=== PATIENT | female | born 1980 | race Caucasian/White ===

== ENCOUNTER 2016-07-06 09:00 | Emergency (ER) | payer MEDICAID ==
[~2016-07-06 09:00] MED LIST: /CARB4TA; /IPRA3SP; /IPRA3SP INH; /IPRAINH INH; /SCOPPA; /SCOPPA TD; ACET50TA GT; ACET650S; ALBU20IN INH; ALESSE; ALESSE GT; ATIV0.5T; ATIV0.5T GT; ATIV0.5T3 GT; ATIV1TAB10 PO; ATRO0.06; ATRO1SOL13 INH; ATROVENT0.02%; ATROVENT0.02% INH; AUGM40SS GT; AVEL1TAB PO; AVIANE GT; AVIATAB; AVIATAB GT; BACT20SS GT; BACT2CRE; BENEPOW7 GT; BENEPOW8; BENEPOW8 GT; BENEPROTEIN; BENEPROTEIN GT; BENETAB GT; BENZ5GEL16 TOP; BISA10SU PR; BISA10SU2; BISA10SU2 RE; BISA10SU30 PR; BLEP10SO; BUTT PASTE TOP; CALC1250 GT; CALC12502; CALC500C2 GT; CALCIFEROL; CALCIUM CARB GT; CALCPOW2; CALCPOW2 GT; CARB GT; CARB10SS; CARB10SS GT; CARMEX LIP BALM; CEFD250SUS PO; CEFT500T; CEFT500T GT; CEFTIN GT; CEFU12SS GT; CETI10TA GT; CILO0.3S OU; CIPR500T4; CLEO300C2 GT; CLIN1CAP5 GT; CLIN1GEL3 TOP; CLIN75CA GT; CLOR7.5T3 GT; CLOT1CRE6 TOP; CLOTCRE3 TOP; CLOTR1CR TOP; CLOTRIMAZOLE ANTI12 EXT; COLA100C GT; COLA100C2 GT; COLA50CA GT; COLACE; COLACE GT; CONS10SO3 GT; CONSTULOSE GT; CYPR4TA GT; CYPR4TAB GT; CYPROHEPTADINE; CYPROHEPTADINE GT; DANT50CA2; DANT50CA2 GT; DEBR6.5S4; DIFL150T GT; DISDOL; DOC Q LACE GT; DOC-Q-LACE GT; DOCU10ELUD GT; DOCU5LIQ GT; DOCUSATE GT; DOCUSATE SODIUM GT; DRISDOL; DUL GT; DULC10SU2 PR; DULCOLAX; DULCOLAX PR; DULCOLAX SUPPOSITORY PR; ENSULIQ GT; ESTR2TAB GT; FLUC10SU GT; FLUC10TA GT; FLUC150T GT; IPRA2IN INH; IPRASOL12 INH; IPRASOL12 NEB; JEVILIQ10 GT; JEVILIQ10 JT; KEPP1000 GT; KEPP1SOL GT; KEPP500T4 GT; KEPPRA; KEPPRA GT; LACOSAMIDE; LACOSAMIDE GT; LACT10SO GT; LACT10SO15 GT; LACT10SO8; LACT10SO8 GT; LACT20EL PEG; LACTSOL16 GT; LEVA0.636 INH; LEVA1.25 INH; LEVA1.256 INH; LEVA12INH INH; LEVA25SO GT; LEVA500T GT; LEVA750T GT; LEVE500UDC GT; LEVO750T GT; LORA0.5T GT; METAMUCIL GT; METAPKT PEG; MINO100C GT; MINO1CAP GT; MIRA255PW GT; MIRA3350 GT; MOTR200T40 PEG; MOTRIN; MOTRIN GT; MUCI100L2 GT; MULTLIQ GT; MULTLIQ7; MULTLIQ7 GT; NASA55AE; NASA55AE INH; NASOCORT; NEOM1SUS22 AD; NUTRPOW11 GT; NYAM10003 TOP; NYST1000 MT; NYST100024 TOP; NYSTATIN POWDER; NYSTATIN TOP; Nasocort INH; OMNICEF GT; PRED10TA PO; PRED10TA2; PRED10TA2 GT; PRED10TA2 PO; PRED20TA; PRED20TA GT; PRED20TAB PEG; PROMLIQ9 GT; RANI150T GT; RECL5INJ2 IV; RECLAST; RECLAST IV IV; ROBISYP GT; ROBITUSSIN; SEPT400T; SEPTRA; SULFATRIM; TEGR100C GT; TEGR100C PO; TEGR200T; TEGR200T GT; TOBR3OI OD; TRAN1.5D2 TOP; TRAN15TA; TRAN15TA GT; TRAN7.5T; TRAN7.5T GT; TRANXENE; TRIAMCINOLONE INH; TRIPOIN TOP; TYLE325T5 GT; TYLE325T5 PEG; TYLE325T5 PO; TYLENOL ELIXIR; VENTAER NEB; VENTOLIN NEB INH; VIBR100C GT; VIMPAT GT; VITADR GT; WATER GT; XARE20TA GT; XOPE0.632 IN; XOPE1.252; XOPE1.252 IN; XOPE1.252 INH; XOPENEX INH; XOPENEX NEB; ZINC OXIDE; ZINC OXIDE TOP; ZINC40OI TOP; ZINC60OI TOP; ZITH500T; ZYRT10CA GT; ZYRT10CA PEG; [UNRECOGNIZED DRUG - CODE]; [UNRECOGNIZED DRUG - CODE]; [UNRECOGNIZED DRUG - CODE] BLADIN; [UNRECOGNIZED DRUG - CODE] GT; [UNRECOGNIZED DRUG - CODE] GT; [UNRECOGNIZED DRUG - CODE] GT; [UNRECOGNIZED DRUG - CODE] GT; [UNRECOGNIZED DRUG - CODE] GT; [UNRECOGNIZED DRUG - CODE] GT; [UNRECOGNIZED DRUG - CODE] GT; [UNRECOGNIZED DRUG - CODE] GT; [UNRECOGNIZED DRUG - CODE] GT; [UNRECOGNIZED DRUG - CODE] INH; [UNRECOGNIZED DRUG - CODE] OS; [UNRECOGNIZED DRUG - CODE] PO; [UNRECOGNIZED DRUG - CODE] PO; [UNRECOGNIZED DRUG - CODE] SC; [UNRECOGNIZED DRUG - CODE] TOP; [UNRECOGNIZED DRUG - CODE] TOP; [UNRECOGNIZED DRUG - MIXTURE]; [UNRECOGNIZED DRUG - OTHER]; [UNRECOGNIZED DRUG - OTHER]; [UNRECOGNIZED DRUG - OTHER]; [UNRECOGNIZED DRUG - OTHER]; [UNRECOGNIZED DRUG - OTHER]; [UNRECOGNIZED DRUG - OTHER]; [UNRECOGNIZED DRUG - OTHER]; [UNRECOGNIZED DRUG - OTHER] GT; [UNRECOGNIZED DRUG - OTHER] GT; [UNRECOGNIZED DRUG - OTHER] GT; [UNRECOGNIZED DRUG - OTHER] GT; [UNRECOGNIZED DRUG - OTHER] GT; [UNRECOGNIZED DRUG - OTHER] GT; [UNRECOGNIZED DRUG - OTHER] GT; [UNRECOGNIZED DRUG - OTHER] PO; atrovent; calciferol; calcium carbonate GT; cephulac GT; cleocin GT; dulcolax suppository PR; mycostatin; mycostatin powder TOP; periactin GT; triamcinolone; vimpat
--- NOTE | 2016-07-06 10:39 | REP ---
Clinical: Pain and swelling with erythema . Technique: Walker scale and color Doppler evaluation using linear high frequency transducer. Findings: Ultrasound examination of the left lower extremity deep venous structures from the common femoral vein to the popliteal vein demonstrates normal compressibility flow and wave patterns in response to respiration and augmentation. There is no evidence for deep venous thrombosis. Impression: No evidence for deep venous thrombosis. Signed by Mac Montes MD 07/06/2016 10:31 A
[2016-07-06 11:37] LABS: BASO % 0.7 % (0.0-1.0); EOS # 0.3 K/mm3 (0.0-0.50); EOS % 4.1 % (0.0-3.0); LARGE UNSTAINED CELL # 0.4 K/mm3 (0.0-0.4); LARGE UNSTAINED CELL % 5.5 % (0.0-4.0); LYMPH # 1.8 K/mm3 (1.5-4.5); LYMPH % 18.8 % (24.0-44.0); MEAN CORPUSCULAR HGB CONC 32.7 g/dl (32.0-36.5); MEAN CORPUSCULAR VOLUME 100.9 fl (80.0-96.0); MONO # 0.8 K/mm3 (0.0-0.8); MONO % 11.3 % (0.0-5.0); NEUTROPHILS # 4.3 K/mm3 (1.8-7.7); NEUTROPHILS % 59.6 % (36.0-66.0); PLATELET COUNT, AUTOMATED 170 k/mm3 (150-450); RED CELL DISTRIBUTION WIDTH 18.3 % (11.5-14.5); WHITE BLOOD COUNT 7.2 K/mm3 (4.0-10.0)
[2016-07-06 11:56] LABS: ANION GAP 8 MEQ/L (8-16); BLOOD UREA NITROGEN 13 MG/DL (7-18); CALCIUM LEVEL 8.6 MG/DL (8.5-10.1); CARBON DIOXIDE LEVEL 27 MEQ/L (21-32); CHLORIDE LEVEL 106 MEQ/L (98-107); CREATININE FOR GFR 0.26 MG/DL (0.55-1.02); GLOMERULAR FILTRATION RATE > 60.0 (>60); GLUCOSE, FASTING 107 MG/DL (70-105); SODIUM LEVEL 141 MEQ/L (136-145)
[2016-07-06] MEDS ORDERED: DOXYCYCLINE HYCLATE 100 MG TAB As Ordered ONE (13:12)
--- NOTE | 2016-07-06 13:59 | EDDOCDS ---
Nurse's Notes [facility] Name: Klaudia Echeverria Age: 35 yrs Sex: Female : 1980 Arrival Date: 07/06/2016 Time: 09:00 Bed 18 Private MD: Diagnosis: Cellulitis of left lower limb Presentation: 07/06 09:13 Presenting complaint: per [facility] staff - just d/c from hospital yesterday - today staff bcj noticed swollen left leg/ red in lower leg. denies injury. has not voided in last 24 hrs. ? temp at residence. Adult Sepsis Screening: The patient does not have new or worsening altered mentation. Patient's respiratory rate is less than 22. Systolic blood pressure is greater than 100. Patient has a qSOFA score of 0- Negative Sepsis Screen. Suicide/Homicide risk assessment- the patient denies having any suicidal and/or homicidal ideations and does not present with any other emotional, behavioral or mental health complaints. Status: Patient is not a customer service sales consultant or dependent. Transition of care: patient was not received from another setting of care. 09:13 Acuity: MILES Level 3 bcj 09:13 Method Of Arrival: Ambulance bcj Triage Assessment: 09:25 General: Appears in no apparent distress, comfortable, Behavior is cooperative. Pain: bcj Location: left leg Pain currently is 5 out of 10 on a pain scale. 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 CLINIC DIRECTOR: 09:25 LMP N/A - Irregular menses bcj Historical: - Allergies: ACTH; Augmentin; Biaxin; Lamictal; - Home Meds: 1. clindamycin phosphate 1 % Topical gel QHS to face, underarms, behind ears 2. Atrovent 0.02 % Inhl soln QID and q2 PRN 3. Colace 60mg/5ml oral 15 mL as needed also prn, via G tube 4. cyproheptadine 8 mg Oral tab 2 tabs 3 times per day G-tube 5. Dantrium 50 mg Oral cap 1 cap 3 times per day G-tube 6. Dulcolax (bisacodyl) 10 mg Rectal supp 1 suppository After No BM for 5 days 7. fluconazole 150 mg Oral tab every 7 days 8. Keppra 100 mg/mL Oral soln 500 mg Qam G-tube 9. Keppra 100 mg/mL Oral soln 750 mg nightly G-tube 10. minocycline 100 mg Oral cap 1 cap daily G-tube 11. Miralax 17 gram/dose Oral crea once daily G-tube 12. mucinex-chest congestion 10ml Q4 PRN G tube 13. multivitamin Oral liqd daily 14. nystatin 100,000 unit/gram Topical powd 100,000 unit/g BID PRN 15. poly-vi-santi daily 16. ranitidine HCl 150 mg Oral tab 1 tab 2 times per day give by mouth 17. scopolamine base 1.5 mg transdermal pt72 1 patch every 3 days behind right ear 18. Tranxene T-Tab 7.5 mg Oral tab 1 tab 2 times per day G-tube 19. Vimpat 50 mg AM 75 mg HS oral soln daily G-tube 20. Xarelto 20 mg oral tab 1 tab once daily G-tube 21. Xopenex 1.25 mg/3 mL Inhl nebu 3 mL QID and q2 PRN 22. Zaditor 0.025 % (0.035 %) ophthalmic drop as needed - PMHx: anoxic brain injury; aspiration pneumonia; Asthma; BLINDNESS; Epilepsy; hypothermia; Osteoporosis; - PSHx: none; - Social history: Smoking status: Patient states was never smoker of tobacco. Patient is speech impaired. - Family history: Not pertinent. - : The pt / caregiver states he / she is on anticoagulants: Xarelto Home medication list is obtained from the facility MAR. - Exposure Risk Screening:: None identified. Screenin:01 Infection Control. deg 09:26 Screening information is obtained from residence staff. Fall risk: At risk due to bcj immobility, The following interventions are performed due to a positive Fall Risk Screen: Fall Risk is added to Special Handling on the patient Summary Screen. A Fall Risk Bracelet was applied to the patient. Side Rails are placed in the up position. A Call Chavez is given with instruction to call for help when getting out of bed. Fall Alert bracelet is placed on the patient. Assistance ADL's: Requires assistance with medication administration, assistance is provided by residence staff. Abuse/DV Screen: The patient / caregiver reports he/she is: not in a situation that causes fear, pain or injury. Nutritional screening: On. Advance Directives: There is an active DNR order and the pt has a copy here at this time. home support is adequate. Assessment: 09:26 General: Appears in no apparent distress, comfortable, Behavior is cooperative. bcj 11:48 General: Appears in no apparent distress. Pain: Location: left leg Pain currently is 3 bcj out of 10 on a pain scale. Derm: Skin is pale, pink. Musculoskeletal: Swelling present in left leg redness warm to touch. 12:47 General: Appears in no apparent distress, comfortable, Behavior is cooperative. Pain: bcj Denies pain. 13:55 General: Appears in no apparent distress, comfortable, Behavior is cooperative. Pain: bcj Denies pain. Derm: Skin is pink, warm & dry. Vital Signs: 09:14 BP 133 / 92; Pulse 85; Resp 22; Temp 97.1(R); Pulse Ox 99% on R/A; Weight 61.69 kg (R); jb5 Height 4 ft. 9 in. (144.78 cm) (R); 09:14 Body Mass Index 29.43 (61.69 kg, 144.78 cm) jb5 09:14 unable to tell PAin but makes a face when left leg moved jb5 Vitals: 09:25 Log In Time N/A - ambulance arrival. [facility] ED Course: 09:01 Patient visited by Raven Adams, Park Landscape Architect. deg 09:01 Patient moved to Waiting deg 09:01 Patient moved to 18 deg 09:16 Patient visited by Jessie Smart PCA. jb5 09:20 Mary Sim MD is Attending Physician. sd1 09:21 Triage Initiated bcj 09:26 No apparent distress. Resting quietly. Awaiting ED physician evaluation. bcj 09:26 The patient / caregiver is instructed regarding the plan of care and ED course. bcj Accompanied by [facility] staff. 09:29 Patient visited by Reid Sims RN. bcj 09:35 Patient visited by Mary Sim MD. sd1 09:44 Patient visited by Reid Sims RN. bcj 10:09 Patient moved to Ultrasound hgl 10:25 Patient moved to 18 hgl 11:00 US Lower Extremity R/O DVT Returned. EDMS 11:06 [facility] Payment Agreement was scanned into [employer] and attached to record. mm15 11:14 Patient visited by Jessie Smart PCA. jb5 11:28 CBC with Diff Sent. bcj 11:28 Lactic Acid (Walker tube on ice) Sent. bcj 11:28 MED Profile Sent. bcj 11:28 -Blood Culture Sent. bcj 11:28 BLOOD CULTURES Sent. bcj 11:29 Inserted saline lock: 22 gauge in right upper arm. Labs drawn. (by ED staff). Sent per [facility] order to lab. Labs/Blood culture drawn. 11:30 Patient visited by Reid Sims RN. bcj 11:48 No apparent distress. Resting quietly. Awaiting disposition. bcj 11:48 IV is intact. bcj 11:55 Patient visited by Reid Sims RN. bcj 12:47 No apparent distress. Resting quietly. Awaiting disposition. bcj 12:47 IV is intact. bcj 12:49 Patient visited by Reid Sims RN. bcj 12:50 Efrain Lara MD is Referral Physician. sd1 13:55 No apparent distress. Resting quietly. Awaiting disposition. bcj 13:55 Discontinued lock intact. No procedures done that require assistance. bcj 13:59 Patient visited by Reid Sims RN. j Order Results: Lab Order: CBC with Diff; SPEC'M 07/06/16 11:25 Test: WHITE BLOOD COUNT; Value: 7.2; Range: 4.0-10.0; Units: K/mm3; Status: F Test: RED BLOOD COUNT; Value: 3.53; Range: 4.00-5.40; Abnormal: Below low normal; Units: M/mm3; Status: F Test: HEMOGLOBIN; Value: 11.6; Range: 12.0-16.0; Abnormal: Below low normal; Units: g/dl; Status: F Test: HEMATOCRIT; Value: 35.7; Range: 36.0-47.0; Abnormal: Below low normal; Units: %; Status: F Test: MEAN CORPUSCULAR VOLUME; Value: 100.9; Range: 80.0-96.0; Abnormal: Above high normal; Units: fl; Status: F Test: MEAN CORPUSCULAR HEMOGLOBIN; Value: 33.0; Range: 27.0-33.0; Units: pg; Status: F Test: MEAN CORPUSCULAR HGB CONC; Value: 32.7; Range: 32.0-36.5; Units: g/dl; Status: F Test: RED CELL DISTRIBUTION WIDTH; Value: 18.3; Range: 11.5-14.5; Abnormal: Above high normal; Units: %; Status: F Test: PLATELET COUNT, AUTOMATED; Value: 170; Range: 150-450; Units: k/mm3; Status: F Test: NEUTROPHILS %; Value: 59.6; Range: 36.0-66.0; Units: %; Status: F Test: LYMPH %; Value: 18.8; Range: 24.0-44.0; Abnormal: Below low normal; Units: %; Status: F Test: MONO %; Value: 11.3; Range: 0.0-5.0; Abnormal: Above high normal; Units: %; Status: F Test: EOS %; Value: 4.1; Range: 0.0-3.0; Abnormal: Above high normal; Units: %; Status: F Test: BASO %; Value: 0.7; Range: 0.0-1.0; Units: %; Status: F Test: LARGE UNSTAINED CELL %; Value: 5.5; Range: 0.0-4.0; Abnormal: Above high normal; Units: %; Status: F Test: NEUTROPHILS #; Value: 4.3; Range: 1.8-7.7; Units: K/mm3; Status: F Test: LYMPH #; Value: 1.8; Range: 1.5-4.5; Units: K/mm3; Status: F Test: MONO #; Value: 0.8; Range: 0.0-0.8; Units: K/mm3; Status: F Test: EOS #; Value: 0.3; Range: 0.0-0.50; Units: K/mm3; Status: F Test: BASO #; Value: 0.0; Range: 0.0-0.2; Units: K/mm3; Status: F Test: LARGE UNSTAINED CELL #; Value: 0.4; Range: 0.0-0.4; Units: K/mm3; Status: F Lab Order: Lactic Acid (Walker tube on ice); SPEC'M 07/06/16 11:25 Test: LACTIC ACID LEVEL, LACTATE; Value: 0.6; Range: 0.4-2.0; Units: MMOL/L; Status: F Lab Order: DOMINIC CORDERO 07/06/16 11:25 Test: GLUCOSE, FASTING; Value: 107; Range: 70-105; Abnormal: Above high normal; Units: MG/DL; Status: F Test: BLOOD UREA NITROGEN; Value: 13; Range: 7-18; Units: MG/DL; Status: F Test: CREATININE FOR GFR; Value: 0.26; Range: 0.55-1.02; Abnormal: Below low normal; Units: MG/DL; Status: F Test: GLOMERULAR FILTRATION RATE; Value: > 60.0; Range: >60; Status: F Test: SODIUM LEVEL; Value: 141; Range: 136-145; Units: MEQ/L; Status: F Test: POTASSIUM SERUM; Value: 4.0; Range: 3.5-5.1; Units: MEQ/L; Status: F Test: CHLORIDE LEVEL; Value: 106; Range: 98-107; Units: MEQ/L; Status: F Test: CARBON DIOXIDE LEVEL; Value: 27; Range: 21-32; Units: MEQ/L; Status: F Test: ANION GAP; Value: 8; Range: 8-16; Units: MEQ/L; Status: F Test: CALCIUM LEVEL; Value: 8.6; Range: 8.5-10.1; Units: MG/DL; Status: F Test Note: ; Units are mL/min/1.73 m2 Chronic Kidney Disease Staging per NKF: Stage I & II GFR >=60 Normal to Mildly Decreased Stage III GFR 30-59 Moderately Decreased Stage IV GFR 15-29 Severely Decreased Stage V GFR <15 Very Little GFR Left ESRD GFR <15 on DEAN OF INSTRUCTION Radiology Order: US Lower Extremity R/O DVT Test: US Lower Extremity R/O DVT REASON FOR EXAMINATION: swelling/redness; Clinical: Pain and swelling with erythema .; ; Technique: Walker scale and color Doppler evaluation using linear high frequency; transducer.; ; Findings:; Ultrasound examination of the left lower extremity deep venous structures from; the common femoral vein to the popliteal vein demonstrates normal compressibility; flow and wave patterns in response to respiration and augmentation. There is no; evidence for deep venous thrombosis.; ; Impression:; No evidence for deep venous thrombosis.; ; ; Signed by; Mac Montes MD 07/06/2016 10:31 A; Outcome: 12:50 Discharge ordered by Provider. sd1 13:55 Discharge Assessment: patient administered narcotics - no. The following High Risk j Discharge criteria are identified: None. Discharged to home ambulatory. Condition: stable. Discharge instructions given to parents Instructed on discharge instructions, follow up and referral plans. medication usage. Ultrasound Study completed. Property :Personal belongings accompany Pt. 13:59 Patient left the ED. [facility] Signatures: Dispatcher [employer] EDIL Mary Sim MD MD sd1 Raven Adams, Park Landscape Architect Unit deg Reid Sims, RN RN bcJessie Badillo, HOME HEALTH CNA HOME HEALTH CNA jb5 Ly, Benedicto Can mm15 MTDAditi
--- NOTE | 2016-07-06 13:59 | EDDOCDS ---
Physician Documentation [facility] Name: Klaudia Echeverria Age: 35 yrs Sex: Female : 1980 Arrival Date: 07/06/2016 Time: 09:00 Bed 18 Private MD: Disposition: 07/06/16 12:50 Discharged to Home/Self Care. Impression: Cellulitis of left lower limb. - Condition is Stable. - Discharge Instructions: Cellulitis, Cellulitis, [id number]. - Medication Reconciliation, Local Pharmacy Hours form. - Follow up: Efrain Lara MD; When: 2 - 3 days; Reason: Recheck today's complaints. - Problem is new. - Symptoms are unchanged. Historical: - Allergies: ACTH; Augmentin; Biaxin; Lamictal; - Home Meds: 1. clindamycin phosphate 1 % Topical gel QHS to face, underarms, behind ears 2. Atrovent 0.02 % Inhl soln QID and q2 PRN 3. Colace 60mg/5ml oral 15 mL as needed also prn, via G tube 4. cyproheptadine 8 mg Oral tab 2 tabs 3 times per day G-tube 5. Dantrium 50 mg Oral cap 1 cap 3 times per day G-tube 6. Dulcolax (bisacodyl) 10 mg Rectal supp 1 suppository After No BM for 5 days 7. fluconazole 150 mg Oral tab every 7 days 8. Keppra 100 mg/mL Oral soln 500 mg Qam G-tube 9. Keppra 100 mg/mL Oral soln 750 mg nightly G-tube 10. minocycline 100 mg Oral cap 1 cap daily G-tube 11. Miralax 17 gram/dose Oral crea once daily G-tube 12. mucinex-chest congestion 10ml Q4 PRN G tube 13. multivitamin Oral liqd daily 14. nystatin 100,000 unit/gram Topical powd 100,000 unit/g BID PRN 15. poly-vi-santi daily 16. ranitidine HCl 150 mg Oral tab 1 tab 2 times per day give by mouth 17. scopolamine base 1.5 mg transdermal pt72 1 patch every 3 days behind right ear 18. Tranxene T-Tab 7.5 mg Oral tab 1 tab 2 times per day G-tube 19. Vimpat 50 mg AM 75 mg HS oral soln daily G-tube 20. Xarelto 20 mg oral tab 1 tab once daily G-tube 21. Xopenex 1.25 mg/3 mL Inhl nebu 3 mL QID and q2 PRN 22. Zaditor 0.025 % (0.035 %) ophthalmic drop as needed - PMHx: anoxic brain injury; aspiration pneumonia; Asthma; BLINDNESS; Epilepsy; hypothermia; Osteoporosis; - PSHx: none; - Social history: Smoking status: Patient states was never smoker of tobacco. Patient is speech impaired. - Family history: Not pertinent. - : The pt / caregiver states he / she is on anticoagulants: Xarelto Home medication list is obtained from the facility MAR. - Exposure Risk Screening:: None identified. THREE KNIFE TRIMMER: 07/06 09:25 LMP N/A - Irregular menses [facility] Vital Signs: 09:14 BP 133 / 92; Pulse 85; Resp 22; Temp 97.1(R); Pulse Ox 99% on R/A; Weight 61.69 kg / jb5 136 lbs (R); Height 4 ft. 9 in. (144.78 cm) (R); 09:14 Body Mass Index 29.43 (61.69 kg, 144.78 cm) jb5 09:14 unable to tell PAin but makes a face when left leg moved jb5 MDM: 09:36 Financial registration complete. mm15 09:44 IV Saline Lock ordered. sd1 09:44 -Blood Culture (Adults Only), peripheral from different site, or from device/port/PICC sd1 etc. if present ordered. 09:45 US Lower Extremity R/O DVT Ordered. EDMS 09:45 CBC with Diff Ordered. EDMS 09:45 Lactic Acid (Walker tube on ice) Ordered. EDMS 09:45 MED Profile Ordered. EDMS 09:45 -Blood Culture Ordered. EDMS 09:59 -Blood Culture (Adults Only), peripheral from different site, or from device/port/PICC jb5 etc. if present complete. 10:01 BLOOD CULTURES Ordered. EDMS 11:06 [facility] Payment Agreement was scanned into [employer] and attached to record. mm15 12:45 CBC with Diff Reviewed. sd1 12:45 MED Profile Reviewed. sd1 12:45 Lactic Acid (Walker tube on ice) Reviewed. sd1 12:45 US Lower Extremity R/O DVT Reviewed. sd1 12:49 Doxycycline 100 mg PO once ordered. sd1 Signatures: Dispatcher [employer] Mary Perla MD MD sd1 Reid Sims, JEN RN Jessie Reyes, NICOLAS COAL TOWER OPERATOR jb5 Benedicto Dalton mm15 The chart was reviewed and I authenticate all verbal orders and agree with the evaluation and treatment provided.Attachments: 11:06 [facility] Payment Agreement mm15 MTDD
--- NOTE | 2016-07-08 14:59 | EDDOCDS ---
Nurse's Notes [facility] Name: Klaudia Echeverria Age: 35 yrs Sex: Female : 1980 Arrival Date: 07/06/2016 Time: 09:00 Bed 18 Private MD: Diagnosis: Cellulitis of left lower limb Presentation: 07/06 09:13 Presenting complaint: per [facility] staff - just d/c from hospital yesterday - today staff bcj noticed swollen left leg/ red in lower leg. denies injury. has not voided in last 24 hrs. ? temp at residence. Adult Sepsis Screening: The patient does not have new or worsening altered mentation. Patient's respiratory rate is less than 22. Systolic blood pressure is greater than 100. Patient has a qSOFA score of 0- Negative Sepsis Screen. Suicide/Homicide risk assessment- the patient denies having any suicidal and/or homicidal ideations and does not present with any other emotional, behavioral or mental health complaints. Status: Patient is not a cash register servicer or dependent. Transition of care: patient was not received from another setting of care. 09:13 Acuity: MILES Level 3 bcj 09:13 Method Of Arrival: Ambulance bcj Triage Assessment: 09:25 General: Appears in no apparent distress, comfortable, Behavior is cooperative. Pain: bcj Location: left leg Pain currently is 5 out of 10 on a pain scale. 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 clindamycin phosphate 1 % Topical gel QHS to face, underarms, behind ears 2. Atrovent 0.02 % Inhl soln QID and q2 PRN 3. Colace 60mg/5ml oral 15 mL as needed also prn, via G tube 4. cyproheptadine 8 mg Oral tab 2 tabs 3 times per day G-tube 5. Dantrium 50 mg Oral cap 1 cap 3 times per day G-tube 6. Dulcolax (bisacodyl) 10 mg Rectal supp 1 suppository After No BM for 5 days 7. fluconazole 150 mg Oral tab every 7 days 8. Keppra 100 mg/mL Oral soln 500 mg Qam G-tube 9. Keppra 100 mg/mL Oral soln 750 mg nightly G-tube 10. minocycline 100 mg Oral cap 1 cap daily G-tube 11. Miralax 17 gram/dose Oral crea once daily G-tube 12. mucinex-chest congestion 10ml Q4 PRN G tube 13. multivitamin Oral liqd daily 14. nystatin 100,000 unit/gram Topical powd 100,000 unit/g BID PRN 15. poly-vi-santi daily 16. ranitidine HCl 150 mg Oral tab 1 tab 2 times per day give by mouth 17. scopolamine base 1.5 mg transdermal pt72 1 patch every 3 days behind right ear 18. Tranxene T-Tab 7.5 mg Oral tab 1 tab 2 times per day G-tube 19. Vimpat 50 mg AM 75 mg HS oral soln daily G-tube 20. Xarelto 20 mg oral tab 1 tab once daily G-tube 21. Xopenex 1.25 mg/3 mL Inhl nebu 3 mL QID and q2 PRN 22. Zaditor 0.025 % (0.035 %) ophthalmic drop as needed - PMHx: anoxic brain injury; aspiration pneumonia; Asthma; BLINDNESS; Epilepsy; hypothermia; Osteoporosis; - PSHx: none; - Social history: Smoking status: Patient states was never smoker of tobacco. Patient is speech impaired. - Family history: Not pertinent. - : The pt / caregiver states he / she is on anticoagulants: Xarelto Home medication list is obtained from the facility MAR. - Exposure Risk Screening:: None identified. Screenin:01 Infection Control. deg 09:26 Screening information is obtained from residence staff. Fall risk: At risk due to bcj immobility, The following interventions are performed due to a positive Fall Risk Screen: Fall Risk is added to Special Handling on the patient Summary Screen. A Fall Risk Bracelet was applied to the patient. Side Rails are placed in the up position. A Call Chavez is given with instruction to call for help when getting out of bed. Fall Alert bracelet is placed on the patient. Assistance ADL's: Requires assistance with medication administration, assistance is provided by residence staff. Abuse/DV Screen: The patient / caregiver reports he/she is: not in a situation that causes fear, pain or injury. Nutritional screening: On. Advance Directives: There is an active DNR order and the pt has a copy here at this time. home support is adequate. Assessment: 09:26 General: Appears in no apparent distress, comfortable, Behavior is cooperative. bcj 11:48 General: Appears in no apparent distress. Pain: Location: left leg Pain currently is 3 bcj out of 10 on a pain scale. Derm: Skin is pale, pink. Musculoskeletal: Swelling present in left leg redness warm to touch. 12:47 General: Appears in no apparent distress, comfortable, Behavior is cooperative. Pain: bcj Denies pain. 13:55 General: Appears in no apparent distress, comfortable, Behavior is cooperative. Pain: bcj Denies pain. Derm: Skin is pink, warm & dry. Vital Signs: 09:14 BP 133 / 92; Pulse 85; Resp 22; Temp 97.1(R); Pulse Ox 99% on R/A; Weight 61.69 kg (R); jb5 Height 4 ft. 9 in. (144.78 cm) (R); 09:14 Body Mass Index 29.43 (61.69 kg, 144.78 cm) jb5 09:14 unable to tell PAin but makes a face when left leg moved jb5 Vitals: 09:25 Log In Time N/A - ambulance arrival. [facility] ED Course: 09:01 Patient visited by Raven Adams, Skin Care Therapist. deg 09:01 Patient moved to Waiting deg 09:01 Patient moved to 18 deg 09:16 Patient visited by Jessie Smart PCA. jb5 09:20 Mary Sim MD is Attending Physician. sd1 09:21 Triage Initiated bcj 09:26 No apparent distress. Resting quietly. Awaiting ED physician evaluation. bcj 09:26 The patient / caregiver is instructed regarding the plan of care and ED course. bcj Accompanied by [facility] staff. 09:29 Patient visited by Reid Sims RN. bcj 09:35 Patient visited by Mary Sim MD. sd1 09:44 Patient visited by Reid Sims RN. bcj 10:09 Patient moved to Ultrasound hgl 10:25 Patient moved to 18 hgl 11:00 US Lower Extremity R/O DVT Returned. EDMS 11:06 [facility] Payment Agreement was scanned into ZALP and attached to record. mm15 11:14 Patient visited by Jessie Smart PCA. jb5 11:28 CBC with Diff Sent. bcj 11:28 Lactic Acid (Walker tube on ice) Sent. bcj 11:28 MED Profile Sent. bcj 11:28 -Blood Culture Sent. bcj 11:28 BLOOD CULTURES Sent. bcj 11:29 Inserted saline lock: 22 gauge in right upper arm. Labs drawn. (by ED staff). Sent per [facility] order to lab. Labs/Blood culture drawn. 11:30 Patient visited by Reid Sims RN. bcj 11:48 No apparent distress. Resting quietly. Awaiting disposition. bcj 11:48 IV is intact. bcj 11:55 Patient visited by Reid Sims RN. bcj 12:47 No apparent distress. Resting quietly. Awaiting disposition. bcj 12:47 IV is intact. bcj 12:49 Patient visited by Reid Sims RN. bcj 12:50 Efrain Lara MD is Referral Physician. sd1 13:55 No apparent distress. Resting quietly. Awaiting disposition. bcj 13:55 Discontinued lock intact. No procedures done that require assistance. bcj 13:59 Patient visited by Reid Sims RN. [facility] 07/07 06:55 T-Sheet-- Draft Copy was scanned into ZALP and attached to record. hs2 Order Results: Lab Order: CBC with Diff; SPEC'M 07/06/16 11:25 Test: WHITE BLOOD COUNT; Value: 7.2; Range: 4.0-10.0; Units: K/mm3; Status: F Test: RED BLOOD COUNT; Value: 3.53; Range: 4.00-5.40; Abnormal: Below low normal; Units: M/mm3; Status: F Test: HEMOGLOBIN; Value: 11.6; Range: 12.0-16.0; Abnormal: Below low normal; Units: g/dl; Status: F Test: HEMATOCRIT; Value: 35.7; Range: 36.0-47.0; Abnormal: Below low normal; Units: %; Status: F Test: MEAN CORPUSCULAR VOLUME; Value: 100.9; Range: 80.0-96.0; Abnormal: Above high normal; Units: fl; Status: F Test: MEAN CORPUSCULAR HEMOGLOBIN; Value: 33.0; Range: 27.0-33.0; Units: pg; Status: F Test: MEAN CORPUSCULAR HGB CONC; Value: 32.7; Range: 32.0-36.5; Units: g/dl; Status: F Test: RED CELL DISTRIBUTION WIDTH; Value: 18.3; Range: 11.5-14.5; Abnormal: Above high normal; Units: %; Status: F Test: PLATELET COUNT, AUTOMATED; Value: 170; Range: 150-450; Units: k/mm3; Status: F Test: NEUTROPHILS %; Value: 59.6; Range: 36.0-66.0; Units: %; Status: F Test: LYMPH %; Value: 18.8; Range: 24.0-44.0; Abnormal: Below low normal; Units: %; Status: F Test: MONO %; Value: 11.3; Range: 0.0-5.0; Abnormal: Above high normal; Units: %; Status: F Test: EOS %; Value: 4.1; Range: 0.0-3.0; Abnormal: Above high normal; Units: %; Status: F Test: BASO %; Value: 0.7; Range: 0.0-1.0; Units: %; Status: F Test: LARGE UNSTAINED CELL %; Value: 5.5; Range: 0.0-4.0; Abnormal: Above high normal; Units: %; Status: F Test: NEUTROPHILS #; Value: 4.3; Range: 1.8-7.7; Units: K/mm3; Status: F Test: LYMPH #; Value: 1.8; Range: 1.5-4.5; Units: K/mm3; Status: F Test: MONO #; Value: 0.8; Range: 0.0-0.8; Units: K/mm3; Status: F Test: EOS #; Value: 0.3; Range: 0.0-0.50; Units: K/mm3; Status: F Test: BASO #; Value: 0.0; Range: 0.0-0.2; Units: K/mm3; Status: F Test: LARGE UNSTAINED CELL #; Value: 0.4; Range: 0.0-0.4; Units: K/mm3; Status: F Lab Order: Lactic Acid (Walker tube on ice); SPEC'M 07/06/16 11:25 Test: LACTIC ACID LEVEL, LACTATE; Value: 0.6; Range: 0.4-2.0; Units: MMOL/L; Status: F Lab Order: MED Profile; SPEC'M 07/06/16 11:25 Test: GLUCOSE, FASTING; Value: 107; Range: 70-105; Abnormal: Above high normal; Units: MG/DL; Status: F Test: BLOOD UREA NITROGEN; Value: 13; Range: 7-18; Units: MG/DL; Status: F Test: CREATININE FOR GFR; Value: 0.26; Range: 0.55-1.02; Abnormal: Below low normal; Units: MG/DL; Status: F Test: GLOMERULAR FILTRATION RATE; Value: > 60.0; Range: >60; Status: F Test: SODIUM LEVEL; Value: 141; Range: 136-145; Units: MEQ/L; Status: F Test: POTASSIUM SERUM; Value: 4.0; Range: 3.5-5.1; Units: MEQ/L; Status: F Test: CHLORIDE LEVEL; Value: 106; Range: 98-107; Units: MEQ/L; Status: F Test: CARBON DIOXIDE LEVEL; Value: 27; Range: 21-32; Units: MEQ/L; Status: F Test: ANION GAP; Value: 8; Range: 8-16; Units: MEQ/L; Status: F Test: CALCIUM LEVEL; Value: 8.6; Range: 8.5-10.1; Units: MG/DL; Status: F Test Note: ; Units are mL/min/1.73 m2 Chronic Kidney Disease Staging per NKF: Stage I & II GFR >=60 Normal to Mildly Decreased Stage III GFR 30-59 Moderately Decreased Stage IV GFR 15-29 Severely Decreased Stage V GFR <15 Very Little GFR Left ESRD GFR <15 on ALL AROUND PRESSER Lab Order: -Blood Culture; SPEC'M 07/06/16 11:25 Test: BLOOD CULTURE; Value: No growth after 24 hours . All specimens observed; Status: F Test: BLOOD CULTURE; Value: for 5 days. Results final at that time.; Status: F Test: BLOOD CULTURE; Value: No Growth after 48 hours. All Specimens observed; Status: F Test: BLOOD CULTURE; Value: for 7 days. Results final at that time.; Status: F Lab Order: BLOOD CULTURES; SPEC'M 07/06/16 11:27 Test: BLOOD CULTURE; Value: No growth after 24 hours . All specimens observed; Status: F Test: BLOOD CULTURE; Value: for 5 days. Results final at that time.; Status: F Test: BLOOD CULTURE; Value: No Growth after 48 hours. All Specimens observed; Status: F Test: BLOOD CULTURE; Value: for 7 days. Results final at that time.; Status: F Radiology Order: US Lower Extremity R/O DVT Test: US Lower Extremity R/O DVT REASON FOR EXAMINATION: swelling/redness; Clinical: Pain and swelling with erythema .; ; Technique: Walker scale and color Doppler evaluation using linear high frequency; transducer.; ; Findings:; Ultrasound examination of the left lower extremity deep venous structures from; the common femoral vein to the popliteal vein demonstrates normal compressibility; flow and wave patterns in response to respiration and augmentation. There is no; evidence for deep venous thrombosis.; ; Impression:; No evidence for deep venous thrombosis.; ; ; Signed by; Mac Montes MD 07/06/2016 10:31 A; Outcome: 07/06 12:50 Discharge ordered by Provider. sd1 13:55 Discharge Assessment: patient administered narcotics - no. The following High Risk [facility] Discharge criteria are identified: None. Discharged to home ambulatory. Condition: stable. Discharge instructions given to parents Instructed on discharge instructions, follow up and referral plans. medication usage. Ultrasound Study completed. Property :Personal belongings accompany Pt. 13:59 Patient left the ED. [facility] Signatures: Dispatcher [employer] Mary Perla MD MD sd1 Raven Adams, Skin Care Therapist Unit Reid Paz, JEN RN Jessie Reyes, NICOLAS TOOTH CUTTER CLUTCH jb5 Dereck Obando Marlynn mm15 Manjula Duarte, Reg Reg hs2 Chart Complete MTDD
--- NOTE | 2016-07-08 14:59 | EDDOCDS ---
Physician Documentation [facility] Name: Klaudia Echeverria Age: 35 yrs Sex: Female : 1980 Arrival Date: 07/06/2016 Time: 09:00 Bed 18 Private MD: Disposition: 07/06/16 12:50 Discharged to Home/Self Care. Impression: Cellulitis of left lower limb. - Condition is Stable. - Discharge Instructions: Cellulitis, Cellulitis, [id number]. - Prescriptions for Doxycycline Monohydrate 100 mg Oral Tablet - take 1 tablet by ORAL route every 12 hours for 10 days; 20 tablet. - Medication Reconciliation, Local Pharmacy Hours form. - Follow up: Efrani Lara MD; When: 2 - 3 days; Reason: Recheck today's complaints. - Problem is new. - Symptoms are unchanged. Historical: - Allergies: ACTH; Augmentin; Biaxin; Lamictal; - Home Meds: 1. clindamycin phosphate 1 % Topical gel QHS to face, underarms, behind ears 2. Atrovent 0.02 % Inhl soln QID and q2 PRN 3. Colace 60mg/5ml oral 15 mL as needed also prn, via G tube 4. cyproheptadine 8 mg Oral tab 2 tabs 3 times per day G-tube 5. Dantrium 50 mg Oral cap 1 cap 3 times per day G-tube 6. Dulcolax (bisacodyl) 10 mg Rectal supp 1 suppository After No BM for 5 days 7. fluconazole 150 mg Oral tab every 7 days 8. Keppra 100 mg/mL Oral soln 500 mg Qam G-tube 9. Keppra 100 mg/mL Oral soln 750 mg nightly G-tube 10. minocycline 100 mg Oral cap 1 cap daily G-tube 11. Miralax 17 gram/dose Oral crea once daily G-tube 12. mucinex-chest congestion 10ml Q4 PRN G tube 13. multivitamin Oral liqd daily 14. nystatin 100,000 unit/gram Topical powd 100,000 unit/g BID PRN 15. poly-vi-santi daily 16. ranitidine HCl 150 mg Oral tab 1 tab 2 times per day give by mouth 17. scopolamine base 1.5 mg transdermal pt72 1 patch every 3 days behind right ear 18. Tranxene T-Tab 7.5 mg Oral tab 1 tab 2 times per day G-tube 19. Vimpat 50 mg AM 75 mg HS oral soln daily G-tube 20. Xarelto 20 mg oral tab 1 tab once daily G-tube 21. Xopenex 1.25 mg/3 mL Inhl nebu 3 mL QID and q2 PRN 22. Zaditor 0.025 % (0.035 %) ophthalmic drop as needed - PMHx: anoxic brain injury; aspiration pneumonia; Asthma; BLINDNESS; Epilepsy; hypothermia; Osteoporosis; - PSHx: none; - Social history: Smoking status: Patient states was never smoker of tobacco. Patient is speech impaired. - Family history: Not pertinent. - : The pt / caregiver states he / she is on anticoagulants: Xarelto Home medication list is obtained from the facility SEP. - Exposure Risk Screening:: None identified. 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 9 in. (144.78 cm) (R); 09:14 Body Mass Index 29.43 (61.69 kg, 144.78 cm) jb5 09:14 unable to tell PAin but makes a face when left leg moved jb5 MDM: 09:36 Financial registration complete. mm15 09:44 IV Saline Lock ordered. sd1 09:44 -Blood Culture (Adults Only), peripheral from different site, or from device/port/PICC sd1 etc. if present ordered. 09:45 US Lower Extremity R/O DVT Ordered. EDMS 09:45 CBC with Diff Ordered. EDMS 09:45 Lactic Acid (Walker tube on ice) Ordered. EDMS 09:45 MED Profile Ordered. EDMS 09:45 -Blood Culture Ordered. EDMS 09:59 -Blood Culture (Adults Only), peripheral from different site, or from device/port/PICC jb5 etc. if present complete. 10:01 BLOOD CULTURES Ordered. EDMS 11:06 [facility] Payment Agreement was scanned into Qapa and attached to record. mm15 12:45 CBC with Diff Reviewed. sd1 12:45 MED Profile Reviewed. sd1 12:45 Lactic Acid (Walker tube on ice) Reviewed. sd1 12:45 US Lower Extremity R/O DVT Reviewed. sd1 12:49 Doxycycline 100 mg PO once ordered. sd1 07/07 06:55 T-Sheet-- Draft Copy was scanned into Qapa and attached to record. hs2 Signatures: Dispatcher [employer] EDMary Foster MD MD sd1 Reid Sims, RN RN bcJessie Badillo, NICOLAS GLASS LOADING EQUIPMENT TENDER jb5 Benedicto Dalton mm15 Manjula Duarte, Reg Reg hs2 The chart was reviewed and I authenticate all verbal orders and agree with the evaluation and treatment provided.Attachments: 07/06 11:06 [facility] Payment Agreement mm15 07/07 06:55 T-Sheet-- Draft Copy hs2 Chart Complete MTDD
--- NOTE | 2016-07-08 14:59 | EDDOCDS ---
Physician Documentation [facility] Name: Klaudia Echeverria Age: 35 yrs Sex: Female : 1980 Arrival Date: 07/06/2016 Time: 09:00 Bed 18 Private MD: Disposition: 07/06/16 12:50 Discharged to Home/Self Care. Impression: Cellulitis of left lower limb. - Condition is Stable. - Discharge Instructions: Cellulitis, Cellulitis, [id number]. - Prescriptions for Doxycycline Monohydrate 100 mg Oral Tablet - take 1 tablet by ORAL route every 12 hours for 10 days; 20 tablet. - Medication Reconciliation, Local Pharmacy Hours form. - Follow up: Efrain Lara MD; When: 2 - 3 days; Reason: Recheck today's complaints. - Problem is new. - Symptoms are unchanged. Historical: - Allergies: ACTH; Augmentin; Biaxin; Lamictal; - Home Meds: 1. clindamycin phosphate 1 % Topical gel QHS to face, underarms, behind ears 2. Atrovent 0.02 % Inhl soln QID and q2 PRN 3. Colace 60mg/5ml oral 15 mL as needed also prn, via G tube 4. cyproheptadine 8 mg Oral tab 2 tabs 3 times per day G-tube 5. Dantrium 50 mg Oral cap 1 cap 3 times per day G-tube 6. Dulcolax (bisacodyl) 10 mg Rectal supp 1 suppository After No BM for 5 days 7. fluconazole 150 mg Oral tab every 7 days 8. Keppra 100 mg/mL Oral soln 500 mg Qam G-tube 9. Keppra 100 mg/mL Oral soln 750 mg nightly G-tube 10. minocycline 100 mg Oral cap 1 cap daily G-tube 11. Miralax 17 gram/dose Oral crea once daily G-tube 12. mucinex-chest congestion 10ml Q4 PRN G tube 13. multivitamin Oral liqd daily 14. nystatin 100,000 unit/gram Topical powd 100,000 unit/g BID PRN 15. poly-vi-santi daily 16. ranitidine HCl 150 mg Oral tab 1 tab 2 times per day give by mouth 17. scopolamine base 1.5 mg transdermal pt72 1 patch every 3 days behind right ear 18. Tranxene T-Tab 7.5 mg Oral tab 1 tab 2 times per day G-tube 19. Vimpat 50 mg AM 75 mg HS oral soln daily G-tube 20. Xarelto 20 mg oral tab 1 tab once daily G-tube 21. Xopenex 1.25 mg/3 mL Inhl nebu 3 mL QID and q2 PRN 22. Zaditor 0.025 % (0.035 %) ophthalmic drop as needed - PMHx: anoxic brain injury; aspiration pneumonia; Asthma; BLINDNESS; Epilepsy; hypothermia; Osteoporosis; - PSHx: none; - Social history: Smoking status: Patient states was never smoker of tobacco. Patient is speech impaired. - Family history: Not pertinent. - : The pt / caregiver states he / she is on anticoagulants: Xarelto Home medication list is obtained from the facility SEP. - Exposure Risk Screening:: None identified. 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 9 in. (144.78 cm) (R); 09:14 Body Mass Index 29.43 (61.69 kg, 144.78 cm) jb5 09:14 unable to tell PAin but makes a face when left leg moved jb5 MDM: 09:36 Financial registration complete. mm15 09:44 IV Saline Lock ordered. sd1 09:44 -Blood Culture (Adults Only), peripheral from different site, or from device/port/PICC sd1 etc. if present ordered. 09:45 US Lower Extremity R/O DVT Ordered. EDMS 09:45 CBC with Diff Ordered. EDMS 09:45 Lactic Acid (Walker tube on ice) Ordered. EDMS 09:45 MED Profile Ordered. EDMS 09:45 -Blood Culture Ordered. EDMS 09:59 -Blood Culture (Adults Only), peripheral from different site, or from device/port/PICC jb5 etc. if present complete. 10:01 BLOOD CULTURES Ordered. EDMS 11:06 [facility] Payment Agreement was scanned into buySAFE and attached to record. mm15 12:45 CBC with Diff Reviewed. sd1 12:45 MED Profile Reviewed. sd1 12:45 Lactic Acid (Walker tube on ice) Reviewed. sd1 12:45 US Lower Extremity R/O DVT Reviewed. sd1 12:49 Doxycycline 100 mg PO once ordered. sd1 07/07 06:55 T-Sheet-- Draft Copy was scanned into [employer]FE and attached to record. hs2 Signatures: Dispatcher [employer] EDMary Foster MD MD sd1 Reid Sims, RN RN bcJessie Badillo, NICOLAS SOFTWARE QUALITY ASSURANCE ENGINEER jb5 Benedicto Dalton mm15 Manjula Duarte, Reg Reg hs2 The chart was reviewed and I authenticate all verbal orders and agree with the evaluation and treatment provided.Attachments: 07/06 11:06 [facility] Payment Agreement mm15 07/07 06:55 T-Sheet-- Draft Copy hs2 Chart Complete MTDD
== END 2016-07-06 13:59 | disposition home or self-care (01) ==
LOC: M ED 09:00
DX: L03.116 Cellulitis of left lower limb (principal); G93.1 Anoxic brain damage, not elsewhere classified; J45.909 Unspecified asthma, uncomplicated; G40.909 Epilepsy, unspecified, not intractable, without status epilepticus; R68.0 Hypothermia, not associated with low environmental temperature; M81.0 Age-related osteoporosis without current pathological fracture; H54.0 Blindness, both eyes; F80.9 Developmental disorder of speech and language, unspecified; Z79.01 Long term (current) use of anticoagulants; Z79.899 Other long term (current) drug therapy; Z88.0 Allergy status to penicillin; Z88.8 Allergy status to other drugs, medicaments and biological substances; Z88.1 Allergy status to other antibiotic agents

== ENCOUNTER 2016-07-13 09:32 | Inpatient (IN) | payer MEDICAID ==
[~2016-07-13] VITALS: Ht 144.8 cm; Wt 68.7 kg
--- NOTE | 2016-07-13 11:32 | REP ---
Left femur series: Four views. History: Knee pain. Comparison KUB study April 07, 2016. Findings: There is chronic dislocation of the left hip with pseudoarthrosis in the left iliac bone superior to the acetabulum. There is diffuse osteoporosis. These findings are unchanged. There is soft tissue swelling in the proximal thigh diffusely. Skeletal muscle is homogeneously fat density consistent with denervation atrophy and fatty involution. No femur fracture is seen. Impression: No acute femur fracture seen. Proximal thigh soft tissue swelling. Diffuse osteoporosis, denervation myopathy, and chronic dislocation of the left hip. Signed by Tra Harding MD 07/13/2016 12:39 P
[2016-07-13 12:04] LABS: BASO # 0.1 K/mm3 (0.0-0.2); BASO % 1.3 % (0.0-1.0); EOS # 0.3 K/mm3 (0.0-0.50); EOS % 3.8 % (0.0-3.0); LARGE UNSTAINED CELL # 0.3 K/mm3 (0.0-0.4); LYMPH # 2.2 K/mm3 (1.5-4.5); LYMPH % 26.9 % (24.0-44.0); MEAN CORPUSCULAR HEMOGLOBIN 32.3 pg (27.0-33.0); MEAN CORPUSCULAR HGB CONC 32.4 g/dl (32.0-36.5); MEAN CORPUSCULAR VOLUME 99.8 fl (80.0-96.0); MONO # 0.6 K/mm3 (0.0-0.8); MONO % 8.7 % (0.0-5.0); NEUTROPHILS # 3.9 K/mm3 (1.8-7.7); NEUTROPHILS % 55.3 % (36.0-66.0); PLATELET COUNT, AUTOMATED 351 k/mm3 (150-450); RED CELL DISTRIBUTION WIDTH 17.3 % (11.5-14.5)
[2016-07-13 12:12] LABS: INR 1.45
[2016-07-13] MEDS ORDERED: IPRATROPIUM 0.5MG/ALBUTEROL 2.5MG INH SOL UD 3ML (DUONEB)(J7620) As Ordered ONE (12:15)
[2016-07-13] MEDS ORDERED: ALBUTEROL SULFATE 2.5 MG/0.5 ML INH NEB SOLN As Ordered ONE (12:15)
[2016-07-13 12:22] LABS: ANION GAP 8 MEQ/L (8-16); BLOOD UREA NITROGEN 22 MG/DL (7-18); CALCIUM LEVEL 8.8 MG/DL (8.5-10.1); CARBON DIOXIDE LEVEL 30 MEQ/L (21-32); CHLORIDE LEVEL 107 MEQ/L (98-107); CREATININE FOR GFR 0.31 MG/DL (0.55-1.02); GLOMERULAR FILTRATION RATE > 60.0 (>60); GLUCOSE, FASTING 103 MG/DL (70-105); POTASSIUM SERUM 3.7 MEQ/L (3.5-5.1); SODIUM LEVEL 145 MEQ/L (136-145)
[2016-07-13 12:36] LABS: ERYTHROCYTE SEDIMENTATION RATE 71 mm/hr (0-20)
[2016-07-13] MEDS ORDERED: ACETAMINOPHEN SUSP 160 MG/5 ML UDC As Ordered ONE ×2 (13:49→13:52)
--- NOTE | 2016-07-13 14:37 | REP ---
Left TIB-fib series: Four views. History: Left knee pain. Findings: Four views of the left tibia and fibula demonstrate a depressed fracture of the medial tibial metaphysis. Medial tibial plateau fracture extension is suspected. There is associated swelling. Denervation myopathy is seen in the calf musculature which is homogeneously fat density. There is marked diffuse osteoporosis. Impression: Depressed tibial plateau fracture medially and possibly laterally. Diffuse osteopenia. Swelling and denervation myopathy. Signed by Tra Harding MD 07/13/2016 03:38 P
--- NOTE | 2016-07-13 14:39 | REP ---
Duplex extremity venous ultrasound: Left lower extremity. History: Swelling and pain. The patient's caregiver describes a lump in the left knee. Findings: The deep veins are anechoic and fully compressible from the groin to the popliteal fossa in the patient's left lower extremity. Color flow imaging is homogeneous. Spectral Doppler interrogation demonstrates intact respiratory variation in flow and normal manual augmentation of flow. There is no evidence of deep vein thrombosis. Scanning at the area of the lump shows some fluid around the patella. Impression: Negative left lower extremity duplex venous ultrasound. No evidence of deep vein thrombosis. Signed by Tra Harding MD 07/13/2016 03:38 P
[2016-07-13] MEDS ORDERED: MUCI100L2 PO (14:41)
[2016-07-13] MEDS ORDERED: ZADI0.026 OU (14:43)
--- NOTE | 2016-07-13 15:21 | REP ---
Chest x-ray: Single view. History: Shortness of breath. Findings: There is discoid atelectasis in the left base. This is less pronounced than on July 03, 2016. No definite infiltrate is seen. Cardiomediastinal silhouette is unchanged. No new bony abnormality is appreciated. Impression: Linear plate-like atelectasis left base. Otherwise no acute disease. Signed by Tra Harding MD 07/13/2016 03:39 P
--- NOTE | 2016-07-13 15:22 | REP ---
Bilateral humerus study: Four views. History: Bruising. Comparison study June 06, 2016. Findings: Periosteal reaction is seen at the site of the previously identified surgical neck fracture right humerus. Alignment is somewhat improved from the June 06, 2016 study. No new right humeral fracture is seen. The left humerus shows diffuse osteopenia. No fracture is seen on the left. Impression: No new fracture noted. The previously observed surgical neck fracture of the right humerus shows evidence of healing and improved alignment. Signed by Tra Harding MD 07/13/2016 03:39 P
--- NOTE | 2016-07-13 15:45 | REP ---
Bilateral forearm: Four views. History: Bruising. Findings: AP and lateral views of both forearms show no evidence of fracture or subluxation on either side. Impression: No fracture seen. Signed by Tra Harding MD 07/13/2016 04:02 P
[2016-07-13] MEDS ORDERED: guaiFENesin SYRUP 200 MG/10 ML UDC PO PRN (16:15)
[2016-07-13] MEDS ORDERED: BISACODYL 10 MG SUPP PR PRN (16:15)
[2016-07-13] MEDS ORDERED: IPRATROPIUM 0.02% SOLN 0.5MG/2.5 ML NEB INH PRN (16:15)
[2016-07-13] MEDS ORDERED: DOCUSATE SOD LIQ 100MG/10ML UDC GT PRN (16:15)
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
--- NOTE | 2016-07-13 17:18 | EDDOCDS ---
Nurse's Notes [facility] Name: Klaudia Echeverria Age: 35 yrs Sex: Female : 1980 Arrival Date: 07/13/2016 Time: 09:32 Bed 17 Private MD: Efrain Lara Diagnosis: Nondisplaced fracture of left tibial tuberosity Presentation: 07/13 09:39 Presenting complaint: EMS states: Patient sent from [facility] for evaluation of left knee js13 being swollen. Adult Sepsis Screening: The patient does not have new or worsening altered mentation. Patient's respiratory rate is less than 22. Systolic blood pressure is greater than 100. Patient has a qSOFA score of 0- Negative Sepsis Screen. Suicide/Homicide risk assessment- Unable to assess, due to patient's chronic mental disability. Status: Patient is not a special services agent or dependent. Transition of care: patient was received from [facility]. 09:39 Acuity: MILES Level 4 js13 09:39 Method Of Arrival: Ambulance js13 Triage Assessment: 09:45 General: Appears in no apparent distress, comfortable, Behavior is cooperative. Pain: js13 Unable to use pain scale. Does not appear to understand pain scale. Pt Declines HIV testing. Neurological: Level of Consciousness is awake, alert. Respiratory: Airway is patent Respiratory effort is even, unlabored, Respiratory pattern is regular, symmetrical, Breath sounds are clear. Derm: Skin is pink, warm & dry. Swollen area noted on left knee. 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 Zaditor 0.025 % (0.035 %) ophthalmic drop as needed 2. Xopenex 1.25 mg/3 mL Inhl nebu 3 mL QID and q2 PRN 3. minocycline 100 mg Oral cap 1 cap daily G-tube 4. Atrovent 0.02 % Inhl soln QID and q2 PRN 5. clindamycin phosphate 1 % Topical gel QHS to face, underarms, behind ears 6. Colace 60mg/5ml oral 15 mL as needed also prn, via G tube 7. cyproheptadine 8 mg Oral tab 2 tabs 3 times per day G-tube 8. Dantrium 50 mg Oral cap 1 cap 3 times per day G-tube 9. Dulcolax (bisacodyl) 10 mg Rectal supp 1 suppository After No BM for 5 days 10. fluconazole 150 mg Oral tab every 7 days 11. Keppra 100 mg/mL Oral soln 500 mg Qam G-tube 12. Keppra 100 mg/mL Oral soln 750 mg nightly G-tube 13. Miralax 17 gram/dose Oral crea once daily G-tube 14. mucinex-chest congestion 10ml Q4 PRN G tube 15. multivitamin Oral liqd daily 16. nystatin 100,000 unit/gram Topical powd 100,000 unit/g BID PRN 17. poly-vi-santi daily 18. ranitidine HCl 150 mg Oral tab 1 tab 2 times per day give by mouth 19. scopolamine base 1.5 mg transdermal pt72 1 patch every 3 days behind right ear 20. Tranxene T-Tab 7.5 mg Oral tab 1 tab 2 times per day G-tube 21. Vimpat 50 mg AM 75 mg HS oral soln daily G-tube 22. Xarelto 20 mg oral tab 1 tab once daily G-tube - PMHx: anoxic brain injury; aspiration pneumonia; Asthma; BLINDNESS; Epilepsy; hypothermia; Osteoporosis; - PSHx: none; - Social history: Smoking status: Patient states was never smoker of tobacco. Patient is speech impaired. - Family history: Not pertinent. - : The pt / caregiver states he / she is on anticoagulants: Xarelto Home medication list is obtained from the facility MAR. - Exposure Risk Screening:: None identified. Screenin:46 Screening information is obtained from residence staff. Fall risk: At risk due to js13 apparent cognitive impairment, immobility, prior history of falls. Assistance ADL's: Requires assistance with. Abuse/DV Screen: The patient / caregiver reports he/she is: pt cannot be assessed for living situation at this time. Nutritional screening: No deficits noted. Advance Directives: There is an active DNR order and the pt has a copy here at this time. home support is adequate. Assessment: 11:03 General: Appears in no apparent distress, Behavior is cooperative. Pain: Unable to use js13 pain scale. Does not appear to understand pain scale. Neurological: Level of Consciousness is awake, alert. Respiratory: Airway is patent Respiratory effort is even, unlabored, Respiratory pattern is regular. Derm: Skin is pink, warm & dry. Swollen area noted on left knee. 11:24 General: Appears in no apparent distress, Behavior is cooperative, [facility] staff member at jf3 bedside. Pain: Unable to use pain scale. Does not appear to understand pain scale. Neurological: Level of Consciousness is awake, alert. Cardiovascular: Capillary refill < 3 seconds Heart tones S1 S2 present. Respiratory: Airway is patent Respiratory effort is even, unlabored, Respiratory pattern is regular, symmetrical, Breath sounds with rhonchi bilaterally. Derm: Skin is normal, Swollen area noted on left knee and left viveros. 12:30 General: Appears in no apparent distress, comfortable, Pt resting supine on stretcher. jf3 respirations easy and unlabored. Breath sounds are rhonchi. [facility] staff at bedside. Will continue to monitor. 13:30 General: Appears in no apparent distress, comfortable, Behavior is cooperative, Pt jf3 resting supine on stretcher. [facility] staff at bedside. respirations easy and unlabored. Will continue to monitor. 14:15 General: Appears in no apparent distress, comfortable, Behavior is cooperative, jf3 acetaminophen placed in g-tube with a 50cc water flush before and after medication per [facility] staff. J tube flushed with 50cc water per [facility] staff. Pt tolerated well. 15:30 General: Appears in no apparent distress, comfortable, Behavior is cooperative, Resting jf3 supine on stretcher. respirations easy and unlabored. Will continue to monitor. 15:53 General: [facility] staff states they are leaving at 4pm. jf3 16:52 General: Appears in no apparent distress, comfortable, Behavior is cooperative. Pain: jf3 Unable to use pain scale. Neurological: Level of Consciousness is awake, alert. Cardiovascular: Capillary refill < 3 seconds Heart tones S1 S2 present. Respiratory: Airway is patent Respiratory effort is even, unlabored, Respiratory pattern is regular, symmetrical, Breath sounds with rhonchi bilaterally. Derm: Skin is normal. Social Work Consult: 15:30 Social Work Note: Pt presented via EMS with knee pain. Per ED MD, pt has left tibial ac plateau fracture, also has bruising on both arms. Pt has had two other fractures in the last 6 months, one her ankle, the other was her humerus. Per Dr. Walker, injuries are unexplained and suspicious. Pt is non-verbal due to anoxic brain injury. Per Dr. Walker and Yumiko Overton, nursing specialty food products supervisor, [facility] contacted. Information provided to Sho at [facility]. Call ID number is [phone]. Pt to be admitted for further observation. Vital Signs: 09:40 BP 146 / 76; Pulse 84; Resp 18; Temp 97.1(TE); Pulse Ox 99% on R/A; Weight 68.67 kg dem1 (M); Height 4 ft. 9 in. (144.78 cm); 15:08 BP 131 / 75; Pulse 86; Resp 20; Temp 97.0(TE); Pulse Ox 97% on R/A; sew 16:52 BP 133 / 83; Pulse 85; Resp 20; Temp 97.5(TE); Pulse Ox 95% on R/A; sew 09:40 Body Mass Index 32.76 (68.67 kg, 144.78 cm) [facility] Vitals: 09:40 Log In Time N/A - ambulance arrival. [facility] ED Course: 09:33 Patient visited by Chelly Wu PCA. ar3 09:33 Patient moved to Waiting ar3 09:34 Efrain Lara MD is Private Physician. ar3 09:34 Patient moved to 17 ar3 09:41 Triage Initiated js13 09:46 The patient / caregiver is instructed regarding the plan of care and ED course. js13 09:46 No IV's were initiated during this patient's visit. No procedures done that require js13 assistance. 09:47 Patient visited by Laura Urbano RN. js13 10:10 Yeni Reid MD is Attending Physician. ml 10:10 Patient visited by Yeni Reid MD. ml 10:43 Patient moved to Ultrasound br3 11:03 Patient visited by Laura Urbano,JEN. js13 11:05 Patient moved to 17 br3 11:25 Patient visited by Nikos Jj,JEN. jf3 11:37 Femur Returned. EDMS 11:40 Social work Notified Charline [place] to see pt and speak with [facility] staff re; new left kpj tibial plateau fracture. 12:11 Patient visited by Mary Amos. sew 12:11 Placed in gown. Bed in low position. Side rails up X2. Warm blanket given. Pillow sew given. Head of bed elevated Elevated left leg elevated right arm. Pulse ox on. 12:35 Inserted saline lock: 22 gauge in right hand and blood collected. The patient tolerated js13 the procedure well. 12:36 Patient visited by Laura Urbano RN. js13 13:08 Patient visited by Nikos Jj RN. jf3 13:28 [facility] Agreement was scanned into [employer] and attached to record. lg 13:50 Chai Turner MD is Hospitalizing Provider. ml 14:17 Patient visited by Nikos Jj RN. jf3 14:39 Tibia/Fibula Returned. EDMS 15:08 Patient visited by Mary Amos. sew 15:12 US Lower Extremity R/O DVT Returned. EDMS 15:46 Chest, 1 View Returned. EDMS 15:46 Humerus Returned. EDMS 15:46 Forearm (radius/ulna) Returned. EDMS 15:54 Patient visited by Nikos Jj RN. jf3 16:37 Patient moved to 19 ar3 16:40 Patient moved to 17 ld5 16:52 Patient visited by Mary Amos. sew Administered Medications: 12:18 Drug: Albuterol 5 mg [albuterol sulfate 2.5 mg/0.5 mL solution for nebulization (1 mL)] kt1 Route: Nebulizer; 12:18 Drug: Albuterol-Ipratropium 3 ml [ipratropium-albuterol 0.5 mg-3 mg(2.5 mg base)/3 mL kt1 nebulization soln (3 mL)] Route: Inhalation; 14:12 Drug: Acetaminophen (15mg/kg) 650 mg [acetaminophen 160 mg/5 mL (5 mL) oral solution jf3 (20.312 mL)] Route: PO; RT: 12:18 Initial Med Neb Given as ordered Respiratory: No deficits noted. kt1 Order Results: Lab Order: CBC with Diff; SPEC'M 07/13/16 11:55 Test: WHITE BLOOD COUNT; Value: 7.0; Range: 4.0-10.0; Units: K/mm3; Status: F Test: RED BLOOD COUNT; Value: 3.72; Range: 4.00-5.40; Abnormal: Below low normal; Units: M/mm3; Status: F Test: HEMOGLOBIN; Value: 12.0; Range: 12.0-16.0; Units: g/dl; Status: F Test: HEMATOCRIT; Value: 37.1; Range: 36.0-47.0; Units: %; Status: F Test: MEAN CORPUSCULAR VOLUME; Value: 99.8; Range: 80.0-96.0; Abnormal: Above high normal; Units: fl; Status: F Test: MEAN CORPUSCULAR HEMOGLOBIN; Value: 32.3; Range: 27.0-33.0; Units: pg; Status: F Test: MEAN CORPUSCULAR HGB CONC; Value: 32.4; Range: 32.0-36.5; Units: g/dl; Status: F Test: RED CELL DISTRIBUTION WIDTH; Value: 17.3; Range: 11.5-14.5; Abnormal: Above high normal; Units: %; Status: F Test: PLATELET COUNT, AUTOMATED; Value: 351; Range: 150-450; Units: k/mm3; Status: F Test: NEUTROPHILS %; Value: 55.3; Range: 36.0-66.0; Units: %; Status: F Test: LYMPH %; Value: 26.9; Range: 24.0-44.0; Units: %; Status: F Test: MONO %; Value: 8.7; Range: 0.0-5.0; Abnormal: Above high normal; Units: %; Status: F Test: EOS %; Value: 3.8; Range: 0.0-3.0; Abnormal: Above high normal; Units: %; Status: F Test: BASO %; Value: 1.3; Range: 0.0-1.0; Abnormal: Above high normal; Units: %; Status: F Test: LARGE UNSTAINED CELL %; Value: 4.0; Range: 0.0-4.0; Units: %; Status: F Test: NEUTROPHILS #; Value: 3.9; Range: 1.8-7.7; Units: K/mm3; Status: F Test: LYMPH #; Value: 2.2; Range: 1.5-4.5; Units: K/mm3; Status: F Test: MONO #; Value: 0.6; Range: 0.0-0.8; Units: K/mm3; Status: F Test: EOS #; Value: 0.3; Range: 0.0-0.50; Units: K/mm3; Status: F Test: BASO #; Value: 0.1; Range: 0.0-0.2; Units: K/mm3; Status: F Test: LARGE UNSTAINED CELL #; Value: 0.3; Range: 0.0-0.4; Units: K/mm3; Status: F Lab Order: MED Profile; SPEC'M 07/13/16 11:55 Test: GLUCOSE, FASTING; Value: 103; Range: 70-105; Units: MG/DL; Status: F Test: BLOOD UREA NITROGEN; Value: 22; Range: 7-18; Abnormal: Above high normal; Units: MG/DL; Status: F Test: CREATININE FOR GFR; Value: 0.31; Range: 0.55-1.02; Abnormal: Below low normal; Units: MG/DL; Status: F Test: GLOMERULAR FILTRATION RATE; Value: > 60.0; Range: >60; Status: F Test: SODIUM LEVEL; Value: 145; Range: 136-145; Units: MEQ/L; Status: F Test: POTASSIUM SERUM; Value: 3.7; Range: 3.5-5.1; Units: MEQ/L; Status: F Test: CHLORIDE LEVEL; Value: 107; Range: 98-107; Units: MEQ/L; Status: F Test: CARBON DIOXIDE LEVEL; Value: 30; Range: 21-32; Units: MEQ/L; Status: F Test: ANION GAP; Value: 8; Range: 8-16; Units: MEQ/L; Status: F Test: CALCIUM LEVEL; Value: 8.8; Range: 8.5-10.1; Units: MG/DL; Status: F Test Note: ; Units are mL/min/1.73 m2 Chronic Kidney Disease Staging per NKF: Stage I & II GFR >=60 Normal to Mildly Decreased Stage III GFR 30-59 Moderately Decreased Stage IV GFR 15-29 Severely Decreased Stage V GFR <15 Very Little GFR Left ESRD GFR <15 on [employer] Lab Order: Type & Screen; SPEC'07/13/16 11:55 Test: BLOOD TYPE; Value: O POS; Status: F Test: AB SCREEN (INDIRECT KATHLEEN)GEL; Value: NEGATIVE; Status: F Lab Order: PT/INR; [facility] 07/13/16 11:55 Test: PROTHROMBIN TIME; Value: 17.7; Range: 12.3-14.5; Abnormal: Above high normal; Units: SECONDS; Status: F Test: INR; Value: 1.45; Status: F Test Note: ; THERAPUTIC HUMAN INR VALUES INDICATIONS NORMAL RANGES PROPHYLAXIS/TREATMENT OF: VENOUS THROMBOSIS 2.0-3.0 PULMONARY EMBOLISM 2.0-3.0 PREVENTION OF SYSTEMIC EMBOLISM FROM: TISSUE HEART VALVES 2.0-3.0 ACUTE MYOCARDIAL INFARCTION 2.0-3.0 VALVULAR HEART DISEASE 2.0-3.0 ATRIAL FIBRILLATION 2.0-3.0 MECHANICAL VALVES(HIGH RISK) 2.5-3.5 RECURRENT MYOCARDIAL INFARCTION 2.5-3.5 Lab Order: PTT; [facility] 07/13/16 11:55 Test: PARTIAL THROMBOPLASTIN TIME; Value: 61.2; Range: 26.6-37.1; Abnormal: Above high normal; Units: SECONDS; Status: F Lab Order: Lactic Acid (Walker tube on ice); [facility] 07/13/16 11:56 Test: LACTIC ACID LEVEL, LACTATE; Value: 1.2; Range: 0.4-2.0; Units: MMOL/L; Status: F Lab Order: ESR; [facility] 07/13/16 11:55 Test: ERYTHROCYTE SEDIMENTATION RATE; Value: 71; Range: 0-20; Abnormal: Above high normal; Units: mm/hr; Status: F Lab Order: CRP; [facility] 07/13/16 11:55 Test: C REACTIVE PROTEIN QUANTITATIV; Value: 8.96; Range: 0.00-0.30; Abnormal: Above high normal; Units: MG/DL; Status: F Radiology Order: Femur Test: Femur REASON FOR EXAMINATION: knee pain; Left femur series: Four views.; ; History: Knee pain.; ; Comparison KUB study April 07, 2016.; ; Findings: There is chronic dislocation of the left hip with pseudoarthrosis in; the left iliac bone superior to the acetabulum. There is diffuse osteoporosis.; These findings are unchanged. There is soft tissue swelling in the proximal; thigh diffusely. Skeletal muscle is homogeneously fat density consistent with; denervation atrophy and fatty involution. No femur fracture is seen.; ; Impression:; ; No acute femur fracture seen. Proximal thigh soft tissue swelling. Diffuse; osteoporosis, denervation myopathy, and chronic dislocation of the left hip.; ; ; Signed by; Tra Harding MD 07/13/2016 12:39 P; Radiology Order: Tibia/Fibula Test: Tibia/Fibula REASON FOR EXAMINATION: left knee pain; Left TIB-fib series: Four views.; ; History: Left knee pain.; ; Findings: Four views of the left tibia and fibula demonstrate a depressed; fracture of the medial tibial metaphysis. Medial tibial plateau fracture; extension is suspected. There is associated swelling. Denervation myopathy is; seen in the calf musculature which is homogeneously fat density. There is marked; diffuse osteoporosis.; ; Impression:; ; Depressed tibial plateau fracture medially and possibly laterally. Diffuse; osteopenia. Swelling and denervation myopathy.; ; ; Signed by; Tra Harding MD 07/13/2016 03:38 P; Radiology Order: US Lower Extremity R/O DVT Test: US Lower Extremity R/O DVT REASON FOR EXAMINATION: swelling/pain; Duplex extremity venous ultrasound: Left lower extremity.; ; History: Swelling and pain. The patient's caregiver describes a lump in the left; knee.; ; Findings: The deep veins are anechoic and fully compressible from the groin to; the popliteal fossa in the patient's left lower extremity. Color flow imaging is; homogeneous. Spectral Doppler interrogation demonstrates intact respiratory; variation in flow and normal manual augmentation of flow. There is no evidence; of deep vein thrombosis. Scanning at the area of the lump shows some fluid around; the patella.; ; Impression:; ; Negative left lower extremity duplex venous ultrasound. No evidence of deep vein; thrombosis.; ; ; Signed by; Tra Harding MD 07/13/2016 03:38 P; Radiology Order: Chest, 1 View Test: Chest, 1 View REASON FOR EXAMINATION: sob; Chest x-ray: Single view.; ; History: Shortness of breath.; ; Findings: There is discoid atelectasis in the left base. This is less; pronounced than on July 03, 2016. No definite infiltrate is seen.; Cardiomediastinal silhouette is unchanged. No new bony abnormality is; appreciated.; ; Impression:; ; Linear plate-like atelectasis left base. Otherwise no acute disease.; ; ; Signed by; Tra Harding MD 07/13/2016 03:39 P; Radiology Order: Humerus Test: Humerus REASON FOR EXAMINATION: bruises ; Bilateral humerus study: Four views.; ; History: Bruising.; ; Comparison study June 06, 2016.; ; Findings: Periosteal reaction is seen at the site of the previously identified; surgical neck fracture right humerus. Alignment is somewhat improved from the; June 06, 2016 study. No new right humeral fracture is seen. The left humerus; shows diffuse osteopenia. No fracture is seen on the left.; ; Impression:; ; No new fracture noted. The previously observed surgical neck fracture of the; right humerus shows evidence of healing and improved alignment.; ; ; Signed by; Tra Harding MD 07/13/2016 03:39 P; Radiology Order: Forearm (radius/ulna) Test: Forearm (radius/ulna) REASON FOR EXAMINATION: bruising; Bilateral forearm: Four views.; ; History: Bruising.; ; Findings: AP and lateral views of both forearms show no evidence of fracture or; subluxation on either side.; ; Impression:; ; No fracture seen.; ; ; Signed by; Tra Harding MD 07/13/2016 04:02 P; Outcome: 13:51 Decision to Hospitalize by Provider. 17:14 Discharge Assessment: patient administered narcotics - no. The following High Risk jf3 Discharge criteria are identified: None. Admitted to Med/Surg accompanied by tech, via stretcher, with chart. Condition: stable. Admission hand-off: Report Faxed Fax receipt verified by regla blanchard. Property :Personal belongings accompany Pt. 17:15 Ultrasound Study completed. jf3 17:17 Patient left the ED. jf3 Signatures: Dispatcher [employer] EDMS Yeni Reid MD MD ml Jobson, Karen, RN RN kpj Chong, Yaya, PSA PSA ac Alana Thomas, Fidencio Reg lg Sho Pickering kt1 Renita Hinkle br3 Chelly Wu, SCHOOL PSYCHOLOGIST SCHOOL PSYCHOLOGIST ar3 Margareth Francisco,RN RN ld5 Mark Daniel1 Laura UrbanoRN RN js13 Mary Amos Justin,RN RN jf3 Corrections: (The following items were deleted from the chart) 09:41 09:40 BP 146 / 76; Pulse 84bpm; Resp 18bpm; Pulse Ox 99% RA; Temp 97.1F Temporal; 68.67 dem1 kg Measured; dem1 11:25 11:24 General: Appears in no apparent distress, Behavior is cooperative, jf3 jf3 15:30 15:29 < 8 weeks Pt's history has been reviewed, parents interviewed and there ac are no concerns or d/c planning needs at this time ac MTDD
[2016-07-13 17:28] VITALS: BP 144/93
[2016-07-13] MEDS: levETIRAcetam ORAL SOLUTION 500 MG/5 ML UDC GT SCH (20:12)
[2016-07-13] MEDS: MIRALAX *UNIT DOSE* 17GM PACKET GT SCH (20:12)
[2016-07-13] MEDS: NYSTATIN 100,000 UNITS/GM TOPICAL PWD 15 GM TOP SCH (20:12)
[2016-07-13] MEDS: CLORAZEPATE 3.75 MG TAB GT SCH (20:13)
[2016-07-13] MEDS: LACOSAMIDE 50 MG TAB (VIMPAT) GT SCH (20:13)
[2016-07-13] MEDS: raNITIdine SYRUP 150 MG/10 ML UDC GT SCH (20:13)
[2016-07-13] MEDS: SCOPOLAMINE 1.5 MG TRANSDERMAL TOP SCH (20:13)
[2016-07-13] MEDS: CETIRIZINE (ZyrTEC) 5 MG/5 ML UDC GT SCH (20:14)
[2016-07-13] MEDS: DANTROLENE 25 MG CAP GT SCH (20:15)
[2016-07-13] MEDS: CYPROHEPTADINE 4 MG TAB GT SCH (20:15)
[2016-07-13] MEDS: LEVALBUTEROL 1.25 MG/0.5 ML CONCENTRATE NEB INH SCH (20:32)
[2016-07-13] MEDS ORDERED: MULTIVITAMINS LIQ DROPS 50 ML BTL GT SCH (21:00)
[2016-07-13 22:00] VITALS: BP 132/84
[2016-07-14 06:00] VITALS: BP 125/76
[2016-07-14 06:20] LABS: BASO % 0.5 % (0.0-1.0); EOS # 0.3 K/mm3 (0.0-0.50); EOS % 5.8 % (0.0-3.0); LARGE UNSTAINED CELL # 0.4 K/mm3 (0.0-0.4); LARGE UNSTAINED CELL % 6.6 % (0.0-4.0); LYMPH # 1.4 K/mm3 (1.5-4.5); LYMPH % 23.8 % (24.0-44.0); MEAN CORPUSCULAR HGB CONC 32.7 g/dl (32.0-36.5); MONO # 0.5 K/mm3 (0.0-0.8); MONO % 8.8 % (0.0-5.0); NEUTROPHILS # 3.2 K/mm3 (1.8-7.7); NEUTROPHILS % 54.4 % (36.0-66.0); PLATELET COUNT, AUTOMATED 342 k/mm3 (150-450); RED CELL DISTRIBUTION WIDTH 16.6 % (11.5-14.5); WHITE BLOOD COUNT 5.9 K/mm3 (4.0-10.0)
[2016-07-14 06:46] LABS: ANION GAP 10 MEQ/L (8-16); BLOOD UREA NITROGEN 21 MG/DL (7-18); CALCIUM LEVEL 8.7 MG/DL (8.5-10.1); CARBON DIOXIDE LEVEL 30 MEQ/L (21-32); CHLORIDE LEVEL 107 MEQ/L (98-107); CREATININE FOR GFR 0.22 MG/DL (0.55-1.02); GLOMERULAR FILTRATION RATE > 60.0 (>60); GLUCOSE, FASTING 116 MG/DL (70-105); SODIUM LEVEL 147 MEQ/L (136-145)
[2016-07-14] MEDS: LEVALBUTEROL 1.25 MG/0.5 ML CONCENTRATE NEB INH SCH ×3 (07:28→19:40)
[2016-07-14] MEDS: raNITIdine SYRUP 150 MG/10 ML UDC GT SCH ×2 (09:58→21:28)
[2016-07-14] MEDS: LACOSAMIDE 50 MG TAB (VIMPAT) GT SCH ×2 (09:58→21:28)
[2016-07-14] MEDS: CYPROHEPTADINE 4 MG TAB GT SCH ×3 (09:58→21:26)
[2016-07-14] MEDS: RIVAROXABAN 20 MG TAB (XARELTO) GT SCH (09:58)
[2016-07-14] MEDS: MINOCYCLINE 50 MG CAP GT SCH (09:58)
[2016-07-14] MEDS: levETIRAcetam ORAL SOLUTION 500 MG/5 ML UDC GT SCH ×2 (09:58→21:27)
[2016-07-14] MEDS: DANTROLENE 25 MG CAP GT SCH ×3 (09:59→21:26)
[2016-07-14] MEDS: CLORAZEPATE 3.75 MG TAB GT SCH ×2 (09:59→21:29)
[2016-07-14] MEDS: NYSTATIN 100,000 UNITS/GM TOPICAL PWD 15 GM TOP SCH ×2 (09:59→21:30)
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
[2016-07-14 14:00] VITALS: BP 136/88
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
[2016-07-14] MEDS ORDERED: VANCOMYCIN HCL 1,000 MG, VIAL MATE ADAPTER 1 EACH in D5W 250 ML IV ONE (20:00)
--- NOTE | 2016-07-14 20:11 | PHACANCOPD ---
PHARMACY VANCOMYCIN DOSING Pt Demographics Demographics Patient Age:35 , Weight:68.670 , Gender: female Adjusted Body Weight Vancomycin Vancomycin Target Ranges: 15-20 mcg/ml Vancomycin Load Y/N: Yes Load Dose Date Time Vancomycin Load Dose: 1.5GM Date: 07/14/16 Time: 20:00 Vancomycin Dose Date: 07/15/16. Current Vancomycin Dose: [START 1GM IV Q18H (08:00)] Intermittent Dosing?: No Labs Labs Laboratory Tests 07/14/16 05:55 Calcium Level 8.7, Red Blood Count 3.42 L, Mean Corpuscular Volume 101.0 H, Mean Corpuscular Hemoglobin 33.0, Mean Corpuscular Hemoglobin Concent 32.7, Red Cell Distribution Width 16.6 H, Neutrophils (%) (Auto) 54.4, Lymphocytes (%) ( Auto) 23.8 L, Monocytes (%) (Auto) 8.8 H, Eosinophils (%) (Auto) 5.8 H, Basophils (%) (Auto) 0.5, Neutrophils # (Auto) 3.2, Lymphocytes # (Auto) 1.4 L, Monocytes # (Auto) 0.5, Eosinophils # (Auto) 0.3, Basophils # (Auto) 0.0 Micro Microbiology 07/13/16 Blood Culture - Preliminary, Resulted No growth after 24 hours . All specim... 07/13/16 Blood Culture - Preliminary, Resulted 07/14/16 Urine Culture, Received Pending Creatinine Clearance Date:07/14/16. Creatinine Clearance: [>50 ml/min]. Pending Labs VANCO TR 07/16/16 @ 19:00 Assessment and Plan Maintaining Current Dose?: Yes Reason for dose change: Other Pharmacist Note Pharmacist Note Date: 07/14/16. Pharm.D. note: 35YO FEMALE, 57" in HEIGHT, 68.7KG in WEIGHT. CRCL >50ml/min ADMITTED ON VANCO TR. PREVIOUS ADMISSIONS INDICATE HER IDEAL DOSE IS 1GM VANCO IV Q18H. THEREFORE, WE WILL GIVE HER A 1.5GM VANCO LOAD AT 8PM THIS EVENING FOLLOWED BY 1GM IV Q18H STARTING AT 08:00 07/15/16. A VANCO TROUGH WILL BE DRAW PRIOR TO Wednesdays 20:00 DOSE (@19:00) TIKA SINGH PHARMACY Jul 14, 2016 20:11
[2016-07-14] MEDS ORDERED: VANCOMYCIN HCL 500 MG in D5W MINI-BAG PLUS 100 ML IV ONE (21:00)
[2016-07-14] MEDS ORDERED: FLUCONAZOLE 50MG TABLET GT SCH (21:00)
[2016-07-14] MEDS: CETIRIZINE (ZyrTEC) 5 MG/5 ML UDC GT SCH (21:28)
[2016-07-14] MEDS: MIRALAX *UNIT DOSE* 17GM PACKET GT SCH (21:29)
[2016-07-14] MEDS: MULTIVITAMINS LIQ DROPS 50 ML BTL GT SCH (21:29)
[2016-07-14 22:00] VITALS: BP 125/76
[2016-07-15 06:00] VITALS: BP 126/67
[2016-07-15 06:48] LABS: BASO % 0.3 % (0.0-1.0); EOS # 0.5 K/mm3 (0.0-0.50); EOS % 5.2 % (0.0-3.0); LARGE UNSTAINED CELL # 0.4 K/mm3 (0.0-0.4); LARGE UNSTAINED CELL % 4.6 % (0.0-4.0); LYMPH % 21.2 % (24.0-44.0); MEAN CORPUSCULAR HGB CONC 32.4 g/dl (32.0-36.5); MEAN CORPUSCULAR VOLUME 102.1 fl (80.0-96.0); MONO # 0.8 K/mm3 (0.0-0.8); MONO % 8.7 % (0.0-5.0); NEUTROPHILS # 5.6 K/mm3 (1.8-7.7); NEUTROPHILS % 59.9 % (36.0-66.0); PLATELET COUNT, AUTOMATED 334 k/mm3 (150-450); RED CELL DISTRIBUTION WIDTH 16.3 % (11.5-14.5); WHITE BLOOD COUNT 9.3 K/mm3 (4.0-10.0)
[2016-07-15 07:14] LABS: ANION GAP 10 MEQ/L (8-16); BLOOD UREA NITROGEN 20 MG/DL (7-18); CALCIUM LEVEL 8.9 MG/DL (8.5-10.1); CARBON DIOXIDE LEVEL 28 MEQ/L (21-32); CHLORIDE LEVEL 106 MEQ/L (98-107); CREATININE FOR GFR 0.25 MG/DL (0.55-1.02); GLOMERULAR FILTRATION RATE > 60.0 (>60); GLUCOSE, FASTING 93 MG/DL (70-105); SODIUM LEVEL 144 MEQ/L (136-145)
[2016-07-15] MEDS: LEVALBUTEROL 1.25 MG/0.5 ML CONCENTRATE NEB INH SCH ×4 (07:28→20:31)
[2016-07-15] MEDS: VANCOMYCIN HCL 1,000 MG, VIAL MATE ADAPTER 1 EACH in D5W 250 ML IV SCH (08:15)
[2016-07-15] MEDS: raNITIdine SYRUP 150 MG/10 ML UDC GT SCH ×2 (08:16→21:02)
[2016-07-15] MEDS: levETIRAcetam ORAL SOLUTION 500 MG/5 ML UDC GT SCH ×2 (08:16→21:01)
[2016-07-15] MEDS: RIVAROXABAN 20 MG TAB (XARELTO) GT SCH (08:16)
[2016-07-15] MEDS: DANTROLENE 25 MG CAP GT SCH ×3 (08:16→21:02)
[2016-07-15] MEDS: LACOSAMIDE 50 MG TAB (VIMPAT) GT SCH ×2 (08:16→21:00)
[2016-07-15] MEDS: CYPROHEPTADINE 4 MG TAB GT SCH ×3 (08:16→21:01)
[2016-07-15] MEDS: MINOCYCLINE 50 MG CAP GT SCH (08:16)
[2016-07-15] MEDS: NYSTATIN 100,000 UNITS/GM TOPICAL PWD 15 GM TOP SCH ×2 (08:17→21:00)
[2016-07-15] MEDS: CLORAZEPATE 3.75 MG TAB GT SCH ×2 (08:17→21:00)
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
[2016-07-15 14:00] VITALS: BP 136/75
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
--- NOTE | 2016-07-15 18:18 | EDDOCDS ---
Physician Documentation [facility] Name: Klaudia Echeverria Age: 35 yrs Sex: Female : 1980 Arrival Date: 07/13/2016 Time: 09:32 Bed 17 Private MD: Efrain Lara Disposition: 07/13/16 13:51 Hospitalization ordered by Chai Turner for Inpatient Admission. Preliminary diagnosis is Nondisplaced fracture of left tibial tuberosity. - Bed requested for 4 Orick. - Status is Inpatient Admission. jf3 - Condition is Stable. - Problem is new. - Symptoms are unchanged. Historical: - Allergies: ACTH; Augmentin; Biaxin; Lamictal; - Home Meds: 1. Zaditor 0.025 % (0.035 %) ophthalmic drop as needed 2. Xopenex 1.25 mg/3 mL Inhl nebu 3 mL QID and q2 PRN 3. minocycline 100 mg Oral cap 1 cap daily G-tube 4. Atrovent 0.02 % Inhl soln QID and q2 PRN 5. clindamycin phosphate 1 % Topical gel QHS to face, underarms, behind ears 6. Colace 60mg/5ml oral 15 mL as needed also prn, via G tube 7. cyproheptadine 8 mg Oral tab 2 tabs 3 times per day G-tube 8. Dantrium 50 mg Oral cap 1 cap 3 times per day G-tube 9. Dulcolax (bisacodyl) 10 mg Rectal supp 1 suppository After No BM for 5 days 10. fluconazole 150 mg Oral tab every 7 days 11. Keppra 100 mg/mL Oral soln 500 mg Qam G-tube 12. Keppra 100 mg/mL Oral soln 750 mg nightly G-tube 13. Miralax 17 gram/dose Oral crea once daily G-tube 14. mucinex-chest congestion 10ml Q4 PRN G tube 15. multivitamin Oral liqd daily 16. nystatin 100,000 unit/gram Topical powd 100,000 unit/g BID PRN 17. poly-vi-santi daily 18. ranitidine HCl 150 mg Oral tab 1 tab 2 times per day give by mouth 19. scopolamine base 1.5 mg transdermal pt72 1 patch every 3 days behind right ear 20. Tranxene T-Tab 7.5 mg Oral tab 1 tab 2 times per day G-tube 21. Vimpat 50 mg AM 75 mg HS oral soln daily G-tube 22. Xarelto 20 mg oral tab 1 tab once daily G-tube - PMHx: anoxic brain injury; aspiration pneumonia; Asthma; BLINDNESS; Epilepsy; hypothermia; Osteoporosis; - PSHx: none; - Social history: Smoking status: Patient states was never smoker of tobacco. Patient is speech impaired. - Family history: Not pertinent. - : The pt / caregiver states he / she is on anticoagulants: Xarelto Home medication list is obtained from the facility SEP. - Exposure Risk Screening:: None identified. 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 9 in. (144.78 cm); 15:08 BP 131 / 75; Pulse 86; Resp 20; Temp 97.0(TE); Pulse Ox 97% on R/A; sew 16:52 BP 133 / 83; Pulse 85; Resp 20; Temp 97.5(TE); Pulse Ox 95% on R/A; sew 09:40 Body Mass Index 32.76 (68.67 kg, 144.78 cm) dem1 MDM: 10:21 -Blood Culture (Adults Only), peripheral from different site, or from device/port/PICC ml etc. if present ordered. 10:22 Femur Ordered. EDMS 10:22 CBC with Diff Ordered. EDMS 10:22 MED Profile Ordered. EDMS 10:22 -Blood Culture Ordered. EDMS 10:22 Type & Screen Ordered. EDMS 10:22 PT/INR Ordered. EDMS 10:22 PTT Ordered. EDMS 10:22 Lactic Acid (Walker tube on ice) Ordered. EDMS 10:22 ESR Ordered. EDMS 10:22 CRP Ordered. EDMS 10:22 Keppra (short red top tube) Ordered. EDMS 10:22 -Blood Culture (Adults Only), peripheral from different site, or from device/port/PICC ar3 etc. if present complete. 10:23 BLOOD CULTURES Ordered. EDMS 10:23 US Lower Extremity R/O DVT Ordered. EDMS 10:24 Tibia/Fibula Ordered. EDMS 11:38 Consult PFS/PSA/Insurance Appraiser ordered. ml 11:44 Financial registration complete. lg 12:08 Albuterol 5 mg Nebulizer once ordered. ml 12:08 Albuterol-Ipratropium 3 ml Inhalation once ordered. ml 12:08 Call Respiratory ordered. ml 12:10 IV Saline Lock ordered. ml 12:12 Chest, 1 View Ordered. EDMS 12:12 Humerus Ordered. EDMS 12:12 Forearm (radius/ulna) Ordered. EDMS 12:13 Call Respiratory complete. ar3 13:27 CBC with Diff Reviewed. ml 13:27 MED Profile Reviewed. ml 13:27 PT/INR Reviewed. ml 13:27 PTT Reviewed. ml 13:27 ESR Reviewed. ml 13:27 CRP Reviewed. ml 13:27 Type & Screen Reviewed. ml 13:27 Lactic Acid (Walker tube on ice) Reviewed. ml 13:27 Femur Reviewed. ml 13:28 [facility] [place] was scanned into [employer] and attached to record. lg 13:43 Acetaminophen (15mg/kg) Liquid 650 mg PO once; not to exceed 1,000 milligrams - thru g ml tube ordered. 13:43 Misc. Nursing Order ordered. ml 13:45 BED REQUEST+ADM ordered. EDMS 16:04 Admission / Observation Status ordered. EDMS 21:48 T-Sheet-- Draft Copy was scanned into [employer] and attached to record. klr 07/14 11:24 Radiology Report was scanned into [employer] and attached to record. gb Administered Medications: 07/13 12:18 Drug: Albuterol 5 mg [albuterol sulfate 2.5 mg/0.5 mL solution for nebulization (1 mL)] kt1 Route: Nebulizer; 12:18 Drug: Albuterol-Ipratropium 3 ml [ipratropium-albuterol 0.5 mg-3 mg(2.5 mg base)/3 mL kt1 nebulization soln (3 mL)] Route: Inhalation; 14:12 Drug: Acetaminophen (15mg/kg) 650 mg [acetaminophen 160 mg/5 mL (5 mL) oral solution jf3 (20.312 mL)] Route: PO; Signatures: Dispatcher [employer] EDIL Yeni Reid MD MD ml Alejandra Orlando, Reg Reg gb Alana Thomas, Reg Reg lg Chelly Wu, SALESPERSON AUTOMOBILES SALESPERSON AUTOMOBILES ar3 Laura Urbano,RN RN js13 Yumiko Overton RN RN [id number] Nikos Jj,RN RN jf3 Ute Galvan Kristin kt1 The chart was reviewed and I authenticate all verbal orders and agree with the evaluation and treatment provided.Attachments: 13:28 [facility] [place] Agreement lg 21:48 T-Sheet-- Draft Copy klr Chart Complete MTDD
--- NOTE | 2016-07-15 18:18 | EDDOCDS ---
Nurse's Notes [facility] Name: Klaudia Echeverria Age: 35 yrs Sex: Female : 1980 Arrival Date: 07/13/2016 Time: 09:32 Bed 17 Private MD: Efrain Lara Diagnosis: Nondisplaced fracture of left tibial tuberosity Presentation: 07/13 09:39 Presenting complaint: EMS states: Patient sent from [facility] for evaluation of left knee js13 being swollen. Adult Sepsis Screening: The patient does not have new or worsening altered mentation. Patient's respiratory rate is less than 22. Systolic blood pressure is greater than 100. Patient has a qSOFA score of 0- Negative Sepsis Screen. Suicide/Homicide risk assessment- Unable to assess, due to patient's chronic mental disability. Status: Patient is not a student services vice president or dependent. Transition of care: patient was received from [facility]. 09:39 Acuity: MILES Level 4 js13 09:39 Method Of Arrival: Ambulance js13 Triage Assessment: 09:45 General: Appears in no apparent distress, comfortable, Behavior is cooperative. Pain: js13 Unable to use pain scale. Does not appear to understand pain scale. Pt Declines HIV testing. Neurological: Level of Consciousness is awake, alert. Respiratory: Airway is patent Respiratory effort is even, unlabored, Respiratory pattern is regular, symmetrical, Breath sounds are clear. Derm: Skin is pink, warm & dry. Swollen area noted on left knee. 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 Zaditor 0.025 % (0.035 %) ophthalmic drop as needed 2. Xopenex 1.25 mg/3 mL Inhl nebu 3 mL QID and q2 PRN 3. minocycline 100 mg Oral cap 1 cap daily G-tube 4. Atrovent 0.02 % Inhl soln QID and q2 PRN 5. clindamycin phosphate 1 % Topical gel QHS to face, underarms, behind ears 6. Colace 60mg/5ml oral 15 mL as needed also prn, via G tube 7. cyproheptadine 8 mg Oral tab 2 tabs 3 times per day G-tube 8. Dantrium 50 mg Oral cap 1 cap 3 times per day G-tube 9. Dulcolax (bisacodyl) 10 mg Rectal supp 1 suppository After No BM for 5 days 10. fluconazole 150 mg Oral tab every 7 days 11. Keppra 100 mg/mL Oral soln 500 mg Qam G-tube 12. Keppra 100 mg/mL Oral soln 750 mg nightly G-tube 13. Miralax 17 gram/dose Oral crea once daily G-tube 14. mucinex-chest congestion 10ml Q4 PRN G tube 15. multivitamin Oral liqd daily 16. nystatin 100,000 unit/gram Topical powd 100,000 unit/g BID PRN 17. poly-vi-santi daily 18. ranitidine HCl 150 mg Oral tab 1 tab 2 times per day give by mouth 19. scopolamine base 1.5 mg transdermal pt72 1 patch every 3 days behind right ear 20. Tranxene T-Tab 7.5 mg Oral tab 1 tab 2 times per day G-tube 21. Vimpat 50 mg AM 75 mg HS oral soln daily G-tube 22. Xarelto 20 mg oral tab 1 tab once daily G-tube - PMHx: anoxic brain injury; aspiration pneumonia; Asthma; BLINDNESS; Epilepsy; hypothermia; Osteoporosis; - PSHx: none; - Social history: Smoking status: Patient states was never smoker of tobacco. Patient is speech impaired. - Family history: Not pertinent. - : The pt / caregiver states he / she is on anticoagulants: Xarelto Home medication list is obtained from the facility MAR. - Exposure Risk Screening:: None identified. Screenin:46 Screening information is obtained from residence staff. Fall risk: At risk due to js13 apparent cognitive impairment, immobility, prior history of falls. Assistance ADL's: Requires assistance with. Abuse/DV Screen: The patient / caregiver reports he/she is: pt cannot be assessed for living situation at this time. Nutritional screening: No deficits noted. Advance Directives: There is an active DNR order and the pt has a copy here at this time. home support is adequate. Assessment: 11:03 General: Appears in no apparent distress, Behavior is cooperative. Pain: Unable to use js13 pain scale. Does not appear to understand pain scale. Neurological: Level of Consciousness is awake, alert. Respiratory: Airway is patent Respiratory effort is even, unlabored, Respiratory pattern is regular. Derm: Skin is pink, warm & dry. Swollen area noted on left knee. 11:24 General: Appears in no apparent distress, Behavior is cooperative, [facility] staff member at jf3 bedside. Pain: Unable to use pain scale. Does not appear to understand pain scale. Neurological: Level of Consciousness is awake, alert. Cardiovascular: Capillary refill < 3 seconds Heart tones S1 S2 present. Respiratory: Airway is patent Respiratory effort is even, unlabored, Respiratory pattern is regular, symmetrical, Breath sounds with rhonchi bilaterally. Derm: Skin is normal, Swollen area noted on left knee and left viveros. 12:30 General: Appears in no apparent distress, comfortable, Pt resting supine on stretcher. jf3 respirations easy and unlabored. Breath sounds are rhonchi. [facility] staff at bedside. Will continue to monitor. 13:30 General: Appears in no apparent distress, comfortable, Behavior is cooperative, Pt jf3 resting supine on stretcher. [facility] staff at bedside. respirations easy and unlabored. Will continue to monitor. 14:15 General: Appears in no apparent distress, comfortable, Behavior is cooperative, jf3 acetaminophen placed in g-tube with a 50cc water flush before and after medication per [facility] staff. J tube flushed with 50cc water per [facility] staff. Pt tolerated well. 15:30 General: Appears in no apparent distress, comfortable, Behavior is cooperative, Resting jf3 supine on stretcher. respirations easy and unlabored. Will continue to monitor. 15:53 General: [facility] staff states they are leaving at 4pm. jf3 16:52 General: Appears in no apparent distress, comfortable, Behavior is cooperative. Pain: jf3 Unable to use pain scale. Neurological: Level of Consciousness is awake, alert. Cardiovascular: Capillary refill < 3 seconds Heart tones S1 S2 present. Respiratory: Airway is patent Respiratory effort is even, unlabored, Respiratory pattern is regular, symmetrical, Breath sounds with rhonchi bilaterally. Derm: Skin is normal. Social Work Consult: 15:30 Social Work Note: Pt presented via EMS with knee pain. Per ED MD, pt has left tibial ac plateau fracture, also has bruising on both arms. Pt has had two other fractures in the last 6 months, one her ankle, the other was her humerus. Per Dr. Walker, injuries are unexplained and suspicious. Pt is non-verbal due to anoxic brain injury. Per Dr. Walker and Yumiko Overton, nursing table games supervisor, [facility] contacted. Information provided to Sho at [facility]. Call ID number is [phone]. Pt to be admitted for further observation. Vital Signs: 09:40 BP 146 / 76; Pulse 84; Resp 18; Temp 97.1(TE); Pulse Ox 99% on R/A; Weight 68.67 kg dem1 (M); Height 4 ft. 9 in. (144.78 cm); 15:08 BP 131 / 75; Pulse 86; Resp 20; Temp 97.0(TE); Pulse Ox 97% on R/A; sew 16:52 BP 133 / 83; Pulse 85; Resp 20; Temp 97.5(TE); Pulse Ox 95% on R/A; sew 09:40 Body Mass Index 32.76 (68.67 kg, 144.78 cm) [facility] Vitals: 09:40 Log In Time N/A - ambulance arrival. [facility] ED Course: 09:33 Patient visited by Chelly Wu PCA. ar3 09:33 Patient moved to Waiting ar3 09:34 Efrain Lara MD is Private Physician. ar3 09:34 Patient moved to 17 ar3 09:41 Triage Initiated js13 09:46 The patient / caregiver is instructed regarding the plan of care and ED course. js13 09:46 No IV's were initiated during this patient's visit. No procedures done that require js13 assistance. 09:47 Patient visited by Laura Urbano RN. js13 10:10 Yeni Reid MD is Attending Physician. ml 10:10 Patient visited by Yeni Reid MD. ml 10:43 Patient moved to Ultrasound br3 11:03 Patient visited by Laura Urbano,JEN. js13 11:05 Patient moved to 17 br3 11:25 Patient visited by Nikos Jj,JEN. jf3 11:37 Femur Returned. EDMS 11:40 Social work Notified Charline [place] to see pt and speak with [facility] staff re; new left kpj tibial plateau fracture. 12:11 Patient visited by Mary Amos. sew 12:11 Placed in gown. Bed in low position. Side rails up X2. Warm blanket given. Pillow sew given. Head of bed elevated Elevated left leg elevated right arm. Pulse ox on. 12:35 Inserted saline lock: 22 gauge in right hand and blood collected. The patient tolerated js13 the procedure well. 12:36 Patient visited by Laura Urbano RN. js13 13:08 Patient visited by Nikos Jj RN. jf3 13:28 [facility] Payment Agreement was scanned into [employer] and attached to record. lg 13:50 Chai Turner MD is Hospitalizing Provider. ml 14:17 Patient visited by Nikos Jj,JEN. jf3 14:39 Tibia/Fibula Returned. EDMS 15:08 Patient visited by Mary Amos. sew 15:12 Lower Extremity R/O DVT Returned. EDMS 15:46 Chest, 1 View Returned. EDMS 15:46 Humerus Returned. EDMS 15:46 Forearm (radius/ulna) Returned. EDMS 15:54 Patient visited by Nikos Jj RN. jf3 16:37 Patient moved to 19 ar3 16:40 Patient moved to 17 ld5 16:52 Patient visited by Mary Amos. sew 21:48 T-Sheet-- Draft Copy was scanned into [employer] and attached to record. klr 07/14 11:24 Patient visited by Alejandra Orlando Reg. gb 11:24 Radiology Report was scanned into [employer] and attached to record. gb Administered Medications: 07/13 12:18 Drug: Albuterol 5 mg [albuterol sulfate 2.5 mg/0.5 mL solution for nebulization (1 mL)] kt1 Route: Nebulizer; 12:18 Drug: Albuterol-Ipratropium 3 ml [ipratropium-albuterol 0.5 mg-3 mg(2.5 mg base)/3 mL kt1 nebulization soln (3 mL)] Route: Inhalation; 14:12 Drug: Acetaminophen (15mg/kg) 650 mg [acetaminophen 160 mg/5 mL (5 mL) oral solution jf3 (20.312 mL)] Route: PO; RT: 12:18 Initial Med Neb Given as ordered Respiratory: No deficits noted. kt1 Order Results: Lab Order: CBC with Diff; SPEC'M 07/13/16 11:55 Test: WHITE BLOOD COUNT; Value: 7.0; Range: 4.0-10.0; Units: K/mm3; Status: F Test: RED BLOOD COUNT; Value: 3.72; Range: 4.00-5.40; Abnormal: Below low normal; Units: M/mm3; Status: F Test: HEMOGLOBIN; Value: 12.0; Range: 12.0-16.0; Units: g/dl; Status: F Test: HEMATOCRIT; Value: 37.1; Range: 36.0-47.0; Units: %; Status: F Test: MEAN CORPUSCULAR VOLUME; Value: 99.8; Range: 80.0-96.0; Abnormal: Above high normal; Units: fl; Status: F Test: MEAN CORPUSCULAR HEMOGLOBIN; Value: 32.3; Range: 27.0-33.0; Units: pg; Status: F Test: MEAN CORPUSCULAR HGB CONC; Value: 32.4; Range: 32.0-36.5; Units: g/dl; Status: F Test: RED CELL DISTRIBUTION WIDTH; Value: 17.3; Range: 11.5-14.5; Abnormal: Above high normal; Units: %; Status: F Test: PLATELET COUNT, AUTOMATED; Value: 351; Range: 150-450; Units: k/mm3; Status: F Test: NEUTROPHILS %; Value: 55.3; Range: 36.0-66.0; Units: %; Status: F Test: LYMPH %; Value: 26.9; Range: 24.0-44.0; Units: %; Status: F Test: MONO %; Value: 8.7; Range: 0.0-5.0; Abnormal: Above high normal; Units: %; Status: F Test: EOS %; Value: 3.8; Range: 0.0-3.0; Abnormal: Above high normal; Units: %; Status: F Test: BASO %; Value: 1.3; Range: 0.0-1.0; Abnormal: Above high normal; Units: %; Status: F Test: LARGE UNSTAINED CELL %; Value: 4.0; Range: 0.0-4.0; Units: %; Status: F Test: NEUTROPHILS #; Value: 3.9; Range: 1.8-7.7; Units: K/mm3; Status: F Test: LYMPH #; Value: 2.2; Range: 1.5-4.5; Units: K/mm3; Status: F Test: MONO #; Value: 0.6; Range: 0.0-0.8; Units: K/mm3; Status: F Test: EOS #; Value: 0.3; Range: 0.0-0.50; Units: K/mm3; Status: F Test: BASO #; Value: 0.1; Range: 0.0-0.2; Units: K/mm3; Status: F Test: LARGE UNSTAINED CELL #; Value: 0.3; Range: 0.0-0.4; Units: K/mm3; Status: F Lab Order: MED Profile; SPEC'M 07/13/16 11:55 Test: GLUCOSE, FASTING; Value: 103; Range: 70-105; Units: MG/DL; Status: F Test: BLOOD UREA NITROGEN; Value: 22; Range: 7-18; Abnormal: Above high normal; Units: MG/DL; Status: F Test: CREATININE FOR GFR; Value: 0.31; Range: 0.55-1.02; Abnormal: Below low normal; Units: MG/DL; Status: F Test: GLOMERULAR FILTRATION RATE; Value: > 60.0; Range: >60; Status: F Test: SODIUM LEVEL; Value: 145; Range: 136-145; Units: MEQ/L; Status: F Test: POTASSIUM SERUM; Value: 3.7; Range: 3.5-5.1; Units: MEQ/L; Status: F Test: CHLORIDE LEVEL; Value: 107; Range: 98-107; Units: MEQ/L; Status: F Test: CARBON DIOXIDE LEVEL; Value: 30; Range: 21-32; Units: MEQ/L; Status: F Test: ANION GAP; Value: 8; Range: 8-16; Units: MEQ/L; Status: F Test: CALCIUM LEVEL; Value: 8.8; Range: 8.5-10.1; Units: MG/DL; Status: F Test Note: ; Units are mL/min/1.73 m2 Chronic Kidney Disease Staging per NKF: Stage I & II GFR >=60 Normal to Mildly Decreased Stage III GFR 30-59 Moderately Decreased Stage IV GFR 15-29 Severely Decreased Stage V GFR <15 Very Little GFR Left ESRD GFR <15 on [employer]ST[employer]ER Lab Order: Type & Screen; [facility] 07/13/16 11:55 Test: BLOOD TYPE; Value: O POS; Status: F Test: AB SCREEN (INDIRECT KATHLEEN)GEL; Value: NEGATIVE; Status: F Lab Order: PT/INR; [facility] 07/13/16 11:55 Test: PROTHROMBIN TIME; Value: 17.7; Range: 12.3-14.5; Abnormal: Above high normal; Units: SECONDS; Status: F Test: INR; Value: 1.45; Status: F Test Note: ; THERAPUTIC HUMAN INR VALUES INDICATIONS NORMAL RANGES PROPHYLAXIS/TREATMENT OF: VENOUS THROMBOSIS 2.0-3.0 PULMONARY EMBOLISM 2.0-3.0 PREVENTION OF SYSTEMIC EMBOLISM FROM: TISSUE HEART VALVES 2.0-3.0 ACUTE MYOCARDIAL INFARCTION 2.0-3.0 VALVULAR HEART DISEASE 2.0-3.0 ATRIAL FIBRILLATION 2.0-3.0 MECHANICAL VALVES(HIGH RISK) 2.5-3.5 RECURRENT MYOCARDIAL INFARCTION 2.5-3.5 Lab Order: PTT; [facility] 07/13/16 11:55 Test: PARTIAL THROMBOPLASTIN TIME; Value: 61.2; Range: 26.6-37.1; Abnormal: Above high normal; Units: SECONDS; Status: F Lab Order: Lactic Acid (Walker tube on ice); [facility] 07/13/16 11:56 Test: LACTIC ACID LEVEL, LACTATE; Value: 1.2; Range: 0.4-2.0; Units: MMOL/L; Status: F Lab Order: ESR; [facility] 07/13/16 11:55 Test: ERYTHROCYTE SEDIMENTATION RATE; Value: 71; Range: 0-20; Abnormal: Above high normal; Units: mm/hr; Status: F Lab Order: CRP; [facility] 07/13/16 11:55 Test: C REACTIVE PROTEIN QUANTITATIV; Value: 8.96; Range: 0.00-0.30; Abnormal: Above high normal; Units: MG/DL; Status: F Radiology Order: Femur Test: Femur REASON FOR EXAMINATION: knee pain; Left femur series: Four views.; ; History: Knee pain.; ; Comparison KUB study April 07, 2016.; ; Findings: There is chronic dislocation of the left hip with pseudoarthrosis in; the left iliac bone superior to the acetabulum. There is diffuse osteoporosis.; These findings are unchanged. There is soft tissue swelling in the proximal; thigh diffusely. Skeletal muscle is homogeneously fat density consistent with; denervation atrophy and fatty involution. No femur fracture is seen.; ; Impression:; ; No acute femur fracture seen. Proximal thigh soft tissue swelling. Diffuse; osteoporosis, denervation myopathy, and chronic dislocation of the left hip.; ; ; Signed by; Tra Harding MD 07/13/2016 12:39 P; Radiology Order: Tibia/Fibula Test: Tibia/Fibula REASON FOR EXAMINATION: left knee pain; Left TIB-fib series: Four views.; ; History: Left knee pain.; ; Findings: Four views of the left tibia and fibula demonstrate a depressed; fracture of the medial tibial metaphysis. Medial tibial plateau fracture; extension is suspected. There is associated swelling. Denervation myopathy is; seen in the calf musculature which is homogeneously fat density. There is marked; diffuse osteoporosis.; ; Impression:; ; Depressed tibial plateau fracture medially and possibly laterally. Diffuse; osteopenia. Swelling and denervation myopathy.; ; ; Signed by; Tra Harding MD 07/13/2016 03:38 P; Radiology Order: US Lower Extremity R/O DVT Test: US Lower Extremity R/O DVT REASON FOR EXAMINATION: swelling/pain; Duplex extremity venous ultrasound: Left lower extremity.; ; History: Swelling and pain. The patient's caregiver describes a lump in the left; knee.; ; Findings: The deep veins are anechoic and fully compressible from the groin to; the popliteal fossa in the patient's left lower extremity. Color flow imaging is; homogeneous. Spectral Doppler interrogation demonstrates intact respiratory; variation in flow and normal manual augmentation of flow. There is no evidence; of deep vein thrombosis. Scanning at the area of the lump shows some fluid around; the patella.; ; Impression:; ; Negative left lower extremity duplex venous ultrasound. No evidence of deep vein; thrombosis.; ; ; Signed by; Tra Harding MD 07/13/2016 03:38 P; Radiology Order: Chest, 1 View Test: Chest, 1 View REASON FOR EXAMINATION: sob; Chest x-ray: Single view.; ; History: Shortness of breath.; ; Findings: There is discoid atelectasis in the left base. This is less; pronounced than on July 03, 2016. No definite infiltrate is seen.; Cardiomediastinal silhouette is unchanged. No new bony abnormality is; appreciated.; ; Impression:; ; Linear plate-like atelectasis left base. Otherwise no acute disease.; ; ; Signed by; Tra Harding MD 07/13/2016 03:39 P; Radiology Order: Humerus Test: Humerus REASON FOR EXAMINATION: bruises ; Bilateral humerus study: Four views.; ; History: Bruising.; ; Comparison study June 06, 2016.; ; Findings: Periosteal reaction is seen at the site of the previously identified; surgical neck fracture right humerus. Alignment is somewhat improved from the; June 06, 2016 study. No new right humeral fracture is seen. The left humerus; shows diffuse osteopenia. No fracture is seen on the left.; ; Impression:; ; No new fracture noted. The previously observed surgical neck fracture of the; right humerus shows evidence of healing and improved alignment.; ; ; Signed by; Tra Harding MD 07/13/2016 03:39 P; Radiology Order: Forearm (radius/ulna) Test: Forearm (radius/ulna) REASON FOR EXAMINATION: bruising; Bilateral forearm: Four views.; ; History: Bruising.; ; Findings: AP and lateral views of both forearms show no evidence of fracture or; subluxation on either side.; ; Impression:; ; No fracture seen.; ; ; Signed by; Tra Harding MD 07/13/2016 04:02 P; Outcome: 13:51 Decision to Hospitalize by Provider. 17:14 Discharge Assessment: patient administered narcotics - no. The following High Risk 3 Discharge criteria are identified: None. Admitted to Med/Surg accompanied by tech, via stretcher, with chart. Condition: stable. Admission hand-off: Report Faxed Fax receipt verified by regla blanchard. Property :Personal belongings accompany Pt. 17:15 Ultrasound Study completed. jf3 17:17 Patient left the ED. jf3 Signatures: Dispatcher Med[employer] EDNE Yeni Reid MD MD ml Jobson, Karen, JEN RN kpj Chong, Yaya, PSA PSA ac Alejandra Orlando, Reg Reg gb Alana Thomas, Reg Reg lg Sho Pickering kt1 Renita Hinkle br3 Chelly Wu, SHRIMP PICKER SHRIMP PICKER ar3 Margareth Francisco,RN RN ld5 Fredy, Stevenshia dem1 Laura Urbano,RN RN js13 Mary Amos Justin,JEN RN jf3 Ute Galvan Corrections: (The following items were deleted from the chart) 09:41 09:40 BP 146 / 76; Pulse 84bpm; Resp 18bpm; Pulse Ox 99% RA; Temp 97.1F Temporal; 68.67 dem1 kg Measured; dem1 11:25 11:24 General: Appears in no apparent distress, Behavior is cooperative, jf3 jf3 15:30 15:29 Infant < 8 weeks Pt's history has been reviewed, parents interviewed and there ac are no concerns or d/c planning needs at this time ac Chart Complete MTDD
[2016-07-15] MEDS: CETIRIZINE (ZyrTEC) 5 MG/5 ML UDC GT SCH (21:00)
[2016-07-15] MEDS: MIRALAX *UNIT DOSE* 17GM PACKET GT SCH (21:00)
[2016-07-15] MEDS: MULTIVITAMINS LIQ DROPS 50 ML BTL GT SCH (21:02)
[2016-07-15 22:00] VITALS: BP 129/86
[2016-07-16] MEDS: VANCOMYCIN HCL 1,000 MG, VIAL MATE ADAPTER 1 EACH in D5W 250 ML IV SCH (01:22)
[2016-07-16 06:00] VITALS: BP 113/63
[2016-07-16 07:00] LABS: BASO % 0.2 % (0.0-1.0); EOS # 0.4 K/mm3 (0.0-0.50); EOS % 3.9 % (0.0-3.0); LARGE UNSTAINED CELL # 0.5 K/mm3 (0.0-0.4); LARGE UNSTAINED CELL % 4.4 % (0.0-4.0); LYMPH # 2.1 K/mm3 (1.5-4.5); LYMPH % 20.5 % (24.0-44.0); MEAN CORPUSCULAR HEMOGLOBIN 32.9 pg (27.0-33.0); MEAN CORPUSCULAR HGB CONC 32.3 g/dl (32.0-36.5); MEAN CORPUSCULAR VOLUME 101.7 fl (80.0-96.0); MONO # 0.8 K/mm3 (0.0-0.8); NEUTROPHILS # 6.5 K/mm3 (1.8-7.7); NEUTROPHILS % 62.9 % (36.0-66.0); PLATELET COUNT, AUTOMATED 307 k/mm3 (150-450); RED CELL DISTRIBUTION WIDTH 16.3 % (11.5-14.5); WHITE BLOOD COUNT 10.3 K/mm3 (4.0-10.0)
[2016-07-16 07:13] LABS: ANION GAP 10 MEQ/L (8-16); BLOOD UREA NITROGEN 16 MG/DL (7-18); CALCIUM LEVEL 8.7 MG/DL (8.5-10.1); CARBON DIOXIDE LEVEL 27 MEQ/L (21-32); CHLORIDE LEVEL 106 MEQ/L (98-107); CREATININE FOR GFR 0.28 MG/DL (0.55-1.02); GLOMERULAR FILTRATION RATE > 60.0 (>60); GLUCOSE, FASTING 116 MG/DL (70-105); POTASSIUM SERUM 3.9 MEQ/L (3.5-5.1); SODIUM LEVEL 143 MEQ/L (136-145)
[2016-07-16] MEDS: LEVALBUTEROL 1.25 MG/0.5 ML CONCENTRATE NEB INH SCH ×4 (07:22→19:47)
[2016-07-16] MEDS: CYPROHEPTADINE 4 MG TAB GT SCH ×3 (09:11→22:14)
[2016-07-16] MEDS: raNITIdine SYRUP 150 MG/10 ML UDC GT SCH ×2 (09:11→22:12)
[2016-07-16] MEDS: levETIRAcetam ORAL SOLUTION 500 MG/5 ML UDC GT SCH ×2 (09:11→22:12)
[2016-07-16] MEDS: MINOCYCLINE 50 MG CAP GT SCH (09:12)
[2016-07-16] MEDS: DANTROLENE 25 MG CAP GT SCH ×3 (09:12→22:14)
[2016-07-16] MEDS: CLORAZEPATE 3.75 MG TAB GT SCH ×2 (09:12→22:12)
[2016-07-16] MEDS: LACOSAMIDE 50 MG TAB (VIMPAT) GT SCH ×2 (09:12→22:12)
[2016-07-16] MEDS: RIVAROXABAN 20 MG TAB (XARELTO) GT SCH (09:12)
[2016-07-16] MEDS: NYSTATIN 100,000 UNITS/GM TOPICAL PWD 15 GM TOP SCH ×2 (09:13→22:15)
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
[2016-07-16 14:00] VITALS: BP 110/71
[2016-07-16 22:00] VITALS: BP 136/83
[2016-07-16] MEDS: CETIRIZINE (ZyrTEC) 5 MG/5 ML UDC GT SCH (22:13)
[2016-07-16] MEDS: SCOPOLAMINE 1.5 MG TRANSDERMAL TOP SCH (22:14)
[2016-07-16] MEDS: MULTIVITAMINS LIQ DROPS 50 ML BTL GT SCH (22:14)
[2016-07-16] MEDS: MIRALAX *UNIT DOSE* 17GM PACKET GT SCH (22:15)
[2016-07-17 06:00] VITALS: BP 121/71
[2016-07-17 06:22] LABS: ANION GAP 8 MEQ/L (8-16); BLOOD UREA NITROGEN 15 MG/DL (7-18); CALCIUM LEVEL 8.6 MG/DL (8.5-10.1); CARBON DIOXIDE LEVEL 26 MEQ/L (21-32); CHLORIDE LEVEL 108 MEQ/L (98-107); GLOMERULAR FILTRATION RATE > 60.0 (>60); GLUCOSE, FASTING 128 MG/DL (70-105); POTASSIUM SERUM 4.1 MEQ/L (3.5-5.1); SODIUM LEVEL 142 MEQ/L (136-145)
[2016-07-17 06:32] LABS: MEAN CORPUSCULAR HGB CONC 33.6 g/dl (32.0-36.5); MEAN CORPUSCULAR VOLUME 101.5 fl (80.0-96.0); PLATELET COUNT, AUTOMATED 290 k/mm3 (150-450); RED CELL DISTRIBUTION WIDTH 16.6 % (11.5-14.5); WHITE BLOOD COUNT 5.4 K/mm3 (4.0-10.0)
[2016-07-17] MEDS: LEVALBUTEROL 1.25 MG/0.5 ML CONCENTRATE NEB INH SCH ×2 (07:14→11:06)
[2016-07-17 07:24] LABS: ANISOCYTOSIS 1+; EOSINOPHILS 6 % (0-5)
[2016-07-17] MEDS: MINOCYCLINE 50 MG CAP GT SCH (09:32)
[2016-07-17] MEDS: levETIRAcetam ORAL SOLUTION 500 MG/5 ML UDC GT SCH (09:32)
[2016-07-17] MEDS: CLORAZEPATE 3.75 MG TAB GT SCH (09:32)
[2016-07-17] MEDS: raNITIdine SYRUP 150 MG/10 ML UDC GT SCH (09:32)
[2016-07-17] MEDS: DANTROLENE 25 MG CAP GT SCH (09:32)
[2016-07-17] MEDS: LACOSAMIDE 50 MG TAB (VIMPAT) GT SCH (09:32)
[2016-07-17] MEDS: NYSTATIN 100,000 UNITS/GM TOPICAL PWD 15 GM TOP SCH (09:33)
[2016-07-17] MEDS: RIVAROXABAN 20 MG TAB (XARELTO) GT SCH (09:33)
[2016-07-17] MEDS: CYPROHEPTADINE 4 MG TAB GT SCH (09:33)
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
== END 2016-07-17 12:53 | disposition home or self-care (01) | DRG 342 ==
LOC: M ED 09:32 → M ED INP 15:59 → M MSPAV 17:20 → OBSVTOIN 07-15 13:26
PROVIDERS: ADMIT Family Medicine; ATTEND Family Medicine
DX: S82.155A Nondisplaced fracture of left tibial tuberosity, initial encounter for closed fracture (principal); G93.1 Anoxic brain damage, not elsewhere classified; R53.2 Functional quadriplegia; F73 Profound intellectual disabilities; T76.11XA Adult physical abuse, suspected, initial encounter; G80.0 Spastic quadriplegic cerebral palsy; Z93.1 Gastrostomy status; K21.9 Gastro-esophageal reflux disease without esophagitis; Z79.899 Other long term (current) drug therapy; Z88.0 Allergy status to penicillin; Z88.8 Allergy status to other drugs, medicaments and biological substances; G40.909 Epilepsy, unspecified, not intractable, without status epilepticus; Z91.018 Allergy to other foods; Z88.7 Allergy status to serum and vaccine; Y33.XXXA Other specified events, undetermined intent, initial encounter; Y92.009 Unspecified place in unspecified non-institutional (private) residence as the place of occurrence of the external cause

== ENCOUNTER → 2016-07-25 | Outpatient (CLI) | payer MEDICAID ==
[~2016-07-25] MED LIST changes: -MOTR200T40 PEG; +MOTR200T44 PEG; +MUCI100L2 PO; +ZADI1DRO OU
== END ==
LOC: M RAD 10:56
PROVIDERS: ATTEND Physician Assistant
DX: S42.214D Unspecified nondisplaced fracture of surgical neck of right humerus, subsequent encounter for fracture with routine healing (principal)

== ENCOUNTER → 2016-07-28 | Outpatient (CLI) | payer MEDICAID ==
--- NOTE | 2016-07-28 17:53 | REP ---
MRI RIGHT SHOULDER: TECHNIQUE: Axial T2 fat sat, gradient echo, sagittal oblique T2 fat sat, coronal oblique T1, T2 fat sat, axial T1 fat sat. IV access could not be obtained to administer intravenous gadolinium for post-contrast imaging. Correlation made with prior plain radiographs and CT chest. There is an ununited fracture at the neck of the right humerus. Heterogenous fluid signal is seen at the fracture site with distraction of fracture fragments. Resorptive changes are seen in the humeral head. In addition there are serpiginous areas of low signal in the humeral head with surrounding high-signal and T2 weighted images suggesting avascular necrosis. There is narrow edema in the proximal end of the humeral shaft at the fracture site. The humeral head is mildly subluxed inferiorly and posteriorly. Visualized muscles are significantly atrophic. The rotator cuff tendons demonstrate no definite tear. Acromioclavicular joint is well aligned with mild downward sloping of the acromion. Biceps tendon appears to be within the bicipital groove. I suspect a posterior labral tear. IMPRESSION: Ununited fracture humeral neck with distraction of fracture fragments and heterogenous fluid signal creating a gap of about 1.6 cm. Marrow edema in the proximal humeral shaft at the fracture site. 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 Mild subluxation of the humeral head posteriorly and inferiorly. Severe muscular atrophy diffusely with no definite rotator cuff tear. There does appear to be a tear at the posterior labrum. Signed by Aydin Walker MD 07/29/2016 07:57 P
== END ==
LOC: M RAD 13:39
PROVIDERS: ATTEND Physician Assistant
DX: S42.214 Unspecified nondisplaced fracture of surgical neck of right humerus (principal)

== ENCOUNTER → 2016-07-29 | Outpatient (CLI) | payer MEDICAID ==
--- NOTE | 2016-07-30 09:27 | DEXA ---
AP SPINE L1 - L4 0.905 -2.3 -2.5 LT FEMUR TOTAL 0.481 -4.2 -4.1 RT FEMUR TOTAL 0.480 -4.2 -4.1 TOTAL BODY TOTAL OTHER DUAL FEMUR FRAX* ASSESSMENT Risk factors: Not in fracture age. 10 year probability of fracture Major osteoporotic fracture % Hip fracture % COMMENTS: There is low bone density of the spine. There is osteoporosis of the hips. The density of the spine has decreased 8.0% since initial exam on 09/27/2003. The spine density has decreased 15.1% since the most recent exam on 12/25/2014. The density of the left has decreased 31.1% since initial exam on 09/27/2003. The density of the left hip has decreased 8.1% since the most recent exam on . The density of the right hip has decreased 11.9% since initial exam on 2003. The density of the right hip has decreased 20.7% since the most recent exam on 12/25/2014. FOLLOW-UP: Recommendation for the next bone density exam: 2 years. JAKI
== END ==
LOC: M WHC 09:13
PROVIDERS: ATTEND Nurse Practitioner Family
DX: M81.6 Localized osteoporosis [Lequesne] (principal); M85.9 Disorder of bone density and structure, unspecified

== ENCOUNTER 2016-08-06 09:52 | Emergency (ER) | payer MEDICAID ==
--- NOTE | 2016-08-06 10:54 | REP ---
Left ankle series: Four views. History: Swelling and deformity. Comparison radiographs are from July 13, 2016. Findings: There is marked diffuse osteoporosis as before. There is diffuse periarticular and distal calf swelling. No fracture or bony destructive lesion is seen. There is a bone island in the posterior calcaneus unchanged. Impression: Diffuse swelling and osteopenia. No acute bony abnormality seen. Signed by Tra Harding MD 08/06/2016 10:45 A
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
--- NOTE | 2016-08-08 12:41 | EDDOCDS ---
Nurse's Notes [facility] Name: Klaudia Echeverria Age: 35 yrs Sex: Female : 1980 Arrival Date: 08/06/2016 Time: 09:52 Bed I Private MD: Efrain Lara Diagnosis: Localized swelling, mass and lump, left lower limb Presentation: 08/06 09:56 Presenting complaint: EMS states: states noted swollen left ankle this AM. [facility] bedridden patient. Jasmine lift from bed to WC. recent left leg FX.immobilizer in place to knee. The patients lower extremity has obvious swelling present on examination. Adult Sepsis Screening: The patient does not have new or worsening altered mentation. Patient's respiratory rate is less than 22. Systolic blood pressure is greater than 100. Patient has a qSOFA score of 1- Negative Sepsis Screen. Suicide/Homicide risk assessment- the patient denies having any suicidal and/or homicidal ideations and does not present with any other emotional, behavioral or mental health complaints. 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 Transition of care: patient was not received from another setting of care. 09:56 Acuity: MILES Level 3 [facility] 09:56 Method Of Arrival: Ambulance [facility] Triage Assessment: 10:03 General: Appears in no apparent distress. Pain: Unable to use pain scale. at baseline [facility] presently per care provider. 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 Musculoskeletal: Capillary refill < 3 seconds No deformity noted Reports at baseline. 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 Atrovent 0.02 % Inhl soln QID and q2 PRN 2. clindamycin phosphate 1 % Topical gel QHS to face, underarms, behind ears 3. Xopenex 1.25 mg/3 mL Inhl nebu 3 mL QID and q2 PRN 4. Dantrium 50 mg Oral cap 1 cap 3 times per day G-tube 5. cyproheptadine 8 mg Oral tab 2 tabs 3 times per day G-tube 6. Dulcolax (bisacodyl) 10 mg Rectal supp 1 suppository After No BM for 5 days 7. Colace 60mg/5ml oral 15 mL as needed also prn, via G tube 8. Tranxene T-Tab 7.5 mg Oral tab 1 tab 2 times per day G-tube 9. Miralax 17 gram/dose Oral crea once daily G-tube 10. Keppra 100 mg/mL Oral soln 500 mg Qam G-tube 11. fluconazole 150 mg Oral tab every 7 days 12. minocycline 100 mg Oral cap 1 cap daily G-tube 13. mucinex-chest congestion 10ml Q4 PRN G tube 14. nystatin 100,000 unit/gram Topical powd 100,000 unit/g BID PRN 15. Vimpat 50 mg AM 75 mg HS oral soln daily G-tube 16. scopolamine base 1.5 mg transdermal pt72 1 patch every 3 days behind right ear 17. Xarelto 20 mg oral tab 1 tab once daily G-tube 18. ranitidine HCl 150 mg Oral tab 1 tab 2 times per day give by mouth 19. Zaditor 0.025 % (0.035 %) ophthalmic drop as needed 20. poly-vi-santi daily 21. Zyrtec 10 mg oral tab once daily via g-tube 22. multivitamin Oral liqd daily - PMHx: anoxic brain injury; aspiration pneumonia; Asthma; BLINDNESS; Epilepsy; hypothermia; Osteoporosis; - PSHx: none; - Social history: Smoking status: Patient states was never smoker of tobacco. non verbal Baseline [facility] patient.. Smoking status: Patient states was never smoker of tobacco. non-verbal. - Family history: Not pertinent. - : The pt / caregiver states he / she is not on anticoagulants. The pt / caregiver states he / she is on anticoagulants: Xarelto Home medication list is obtained from the caregiver, Home medication list is obtained from the facility MAR. - Exposure Risk Screening:: None identified. None identified. Screenin:54 Infection Control. lbd 10:05 Screening information is obtained from the caregiver. Fall risk: No risks identified. monica Assistance ADL's: Requires assistance with meal preparation, this assistance is provided by residence staff, bathing, assistance is provided by residence staff, dressing, assistance is provided by residence staff, toileting, assistance is provided by residence staff, ambulation, assistance is provided by residence staff. Abuse/DV Screen: The patient / caregiver reports he/she is: not in a situation that causes fear, pain or injury. Nutritional screening: No deficits noted. Advance Directives: Currently, there is a health care proxy, mother adair. There is an active DNR order There is an active Power of Supervisor Channel Process, mother adair. home support is adequate. Assessment: 10:05 General: Appears Overall presentation unchanged from prior ed visits. No change in [facility] facial expression with palpation of foot and ankle. visible swelling noted to foot and ankle without redness, ecchymosis . Pulse is intact.. 11:39 Musculoskeletal: Swelling present in left ankle Signs and Symptoms of Compartment kc3 Syndrome: no signs of compartment syndrome. 11:40 Respiratory: Respiratory effort is even, unlabored. Derm: Skin is pink, warm & dry. kc3 Musculoskeletal:. Vital Signs: 10:01 BP 161 / 80; Pulse 81; Resp 20; Temp 96.1(T); Pulse Ox 96% on R/A; Weight 68.31 kg (M); health system Vitals: 10:03 Log In Time N/A - ambulance arrival. [facility] ED Course: 09:53 Patient visited by Cary Vargas, Pigment Supplier. lbd 09:53 Efrain Lara MD is Private Physician. lbd 09:53 Patient moved to Waiting lbd 09:54 Patient moved to I6 lbd 09:56 [facility]ard [facility]. btw 09:56 Emmett Davila MD is Attending Physician. btw 09:56 Patient visited by Chuy Hilliard PA. btw 10:02 Patient visited by Romeo Hanley. jml1 10:02 Triage Initiated jmk 10:05 The patient / caregiver is instructed regarding the plan of care and ED course. jmk 10:50 Efrain Lara MD is Referral Physician. btw 11:33 Ankle, Complete Returned. EDMS 11:39 No IV's were initiated during this patient's visit. No procedures done that require kc3 assistance. 14:15 [facility] Payment Agreement was scanned into [employer] and attached to record. mm15 08/07 12:22 T-Sheet-- Draft Copy was scanned into [employer] and attached to record. gb Order Results: Radiology Order: Ankle, Complete Test: Ankle, Complete REASON FOR EXAMINATION: swelling/deformity; Left ankle series: Four views.; ; History: Swelling and deformity.; ; Comparison radiographs are from July 13, 2016.; ; Findings: There is marked diffuse osteoporosis as before. There is diffuse; periarticular and distal calf swelling. No fracture or bony destructive lesion; is seen. There is a bone island in the posterior calcaneus unchanged.; ; Impression:; ; Diffuse swelling and osteopenia. No acute bony abnormality seen.; ; ; Signed by; Tra Harding MD 08/06/2016 10:45 A; Outcome: 08/06 10:51 Discharge ordered by Provider. bt 11:38 Discharge Assessment: patient administered narcotics - no. The following High Risk kc3 Discharge criteria are identified: None. Discharged to [facility]. Condition: stable. Discharge instructions given to data architect manager, Instructed on discharge instructions, follow up and referral plans. Demonstrated understanding of instructions, Pt was receptive of discharge instructions/ teaching. No special radiology studies were completed. Property :Personal belongings accompany Pt. 11:40 Patient left the ED. kc3 Signatures: Dispatcher [employer] EDMS Cary Vargas, Pigment Supplier Unit lbd Papa Cohen,RN RN erickk Alejandra Orlando, Reg Reg gb Chuy Hilliard PA PA btw Romeo Hanley jml1 Benedicto Dalton mm15 Shruti Horton,RN RN kc3 Chart Complete MTDD
--- NOTE | 2016-08-08 12:41 | EDDOCDS ---
Physician Documentation [facility] Name: Klaudia Echeverria Age: 35 yrs Sex: Female : 1980 Arrival Date: 08/06/2016 Time: 09:52 Bed I6 / Private MD: Efrain Lara Disposition: 08/06/16 10:51 Discharged to Home/Self Care. Impression: Localized swelling, mass and lump, left lower limb. - Condition is Stable. - Discharge Instructions: Edema, [id number]. - Medication Reconciliation, Local Pharmacy Hours form. - Follow up: Efrain Lara MD; When: Call to arrange an appointment; Reason: Further diagnostic work-up, Recheck today's complaints, Continuance of care. - Problem is new. - Symptoms are unchanged. Historical: - Allergies: ACTH; Augmentin; Biaxin; Lamictal; ACTH; Augmentin; Biaxin; Lamictal; - Home Meds: 1. Atrovent 0.02 % Inhl soln QID and q2 PRN 2. clindamycin phosphate 1 % Topical gel QHS to face, underarms, behind ears 3. Xopenex 1.25 mg/3 mL Inhl nebu 3 mL QID and q2 PRN 4. Dantrium 50 mg Oral cap 1 cap 3 times per day G-tube 5. cyproheptadine 8 mg Oral tab 2 tabs 3 times per day G-tube 6. Dulcolax (bisacodyl) 10 mg Rectal supp 1 suppository After No BM for 5 days 7. Colace 60mg/5ml oral 15 mL as needed also prn, via G tube 8. Tranxene T-Tab 7.5 mg Oral tab 1 tab 2 times per day G-tube 9. Miralax 17 gram/dose Oral crea once daily G-tube 10. Keppra 100 mg/mL Oral soln 500 mg Qam G-tube 11. fluconazole 150 mg Oral tab every 7 days 12. minocycline 100 mg Oral cap 1 cap daily G-tube 13. mucinex-chest congestion 10ml Q4 PRN G tube 14. nystatin 100,000 unit/gram Topical powd 100,000 unit/g BID PRN 15. Vimpat 50 mg AM 75 mg HS oral soln daily G-tube 16. scopolamine base 1.5 mg transdermal pt72 1 patch every 3 days behind right ear 17. Xarelto 20 mg oral tab 1 tab once daily G-tube 18. ranitidine HCl 150 mg Oral tab 1 tab 2 times per day give by mouth 19. Zaditor 0.025 % (0.035 %) ophthalmic drop as needed 20. poly-vi-santi daily 21. Zyrtec 10 mg oral tab once daily via g-tube 22. multivitamin Oral liqd daily - PMHx: anoxic brain injury; aspiration pneumonia; Asthma; BLINDNESS; Epilepsy; hypothermia; Osteoporosis; - PSHx: none; - Social history: Smoking status: Patient states was never smoker of tobacco. non verbal Baseline [facility] patient.. Smoking status: Patient states was never smoker of tobacco. non-verbal. - Family history: Not pertinent. - : The pt / caregiver states he / she is not on anticoagulants. The pt / caregiver states he / she is on anticoagulants: Xarelto Home medication list is obtained from the caregiver, Home medication list is obtained from the facility MAR. - Exposure Risk Screening:: None identified. None identified. 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 EDMS 14:15 Financial registration complete. [facility] 14:15 [facility] Payment Agreement was scanned into [employer] and attached to record. 15 08/07 12:22 T-Sheet-- Draft Copy was scanned into [employer] and attached to record. gb Signatures: Dispatcher [facility] EDKS Papa Cohen,JEN RN Alejandra Balderas, Reg Reg gb Chuy Hilliard PA PA btw McGrath, Marlynn mm15 Shruti Horton RN RN kc3 The chart was reviewed and I authenticate all verbal orders and agree with the evaluation and treatment provided.Attachments: 08/06 14:15 [facility] Payment Agreement mm15 08/07 12:22 T-Sheet-- Draft Copy gb Chart Complete MTDD
--- NOTE | 2016-08-08 12:41 | EDDOCDS ---
Physician Documentation [facility] Name: Klaudia Echeverria Age: 35 yrs Sex: Female : 1980 Arrival Date: 08/06/2016 Time: 09:52 Bed I6 / Private MD: Efrain Lara Disposition: 08/06/16 10:51 Discharged to Home/Self Care. Impression: Localized swelling, mass and lump, left lower limb. - Condition is Stable. - Discharge Instructions: Edema, [id number]. - Medication Reconciliation, Local Pharmacy Hours form. - Follow up: Efrain Lara MD; When: Call to arrange an appointment; Reason: Further diagnostic work-up, Recheck today's complaints, Continuance of care. - Problem is new. - Symptoms are unchanged. Historical: - Allergies: ACTH; Augmentin; Biaxin; Lamictal; ACTH; Augmentin; Biaxin; Lamictal; - Home Meds: 1. Atrovent 0.02 % Inhl soln QID and q2 PRN 2. clindamycin phosphate 1 % Topical gel QHS to face, underarms, behind ears 3. Xopenex 1.25 mg/3 mL Inhl nebu 3 mL QID and q2 PRN 4. Dantrium 50 mg Oral cap 1 cap 3 times per day G-tube 5. cyproheptadine 8 mg Oral tab 2 tabs 3 times per day G-tube 6. Dulcolax (bisacodyl) 10 mg Rectal supp 1 suppository After No BM for 5 days 7. Colace 60mg/5ml oral 15 mL as needed also prn, via G tube 8. Tranxene T-Tab 7.5 mg Oral tab 1 tab 2 times per day G-tube 9. Miralax 17 gram/dose Oral crea once daily G-tube 10. Keppra 100 mg/mL Oral soln 500 mg Qam G-tube 11. fluconazole 150 mg Oral tab every 7 days 12. minocycline 100 mg Oral cap 1 cap daily G-tube 13. mucinex-chest congestion 10ml Q4 PRN G tube 14. nystatin 100,000 unit/gram Topical powd 100,000 unit/g BID PRN 15. Vimpat 50 mg AM 75 mg HS oral soln daily G-tube 16. scopolamine base 1.5 mg transdermal pt72 1 patch every 3 days behind right ear 17. Xarelto 20 mg oral tab 1 tab once daily G-tube 18. ranitidine HCl 150 mg Oral tab 1 tab 2 times per day give by mouth 19. Zaditor 0.025 % (0.035 %) ophthalmic drop as needed 20. poly-vi-santi daily 21. Zyrtec 10 mg oral tab once daily via g-tube 22. multivitamin Oral liqd daily - PMHx: anoxic brain injury; aspiration pneumonia; Asthma; BLINDNESS; Epilepsy; hypothermia; Osteoporosis; - PSHx: none; - Social history: Smoking status: Patient states was never smoker of tobacco. non verbal Baseline [facility] patient.. Smoking status: Patient states was never smoker of tobacco. non-verbal. - Family history: Not pertinent. - : The pt / caregiver states he / she is not on anticoagulants. The pt / caregiver states he / she is on anticoagulants: Xarelto Home medication list is obtained from the caregiver, Home medication list is obtained from the facility MAR. - Exposure Risk Screening:: None identified. None identified. 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 EDMS 14:15 Financial registration complete. [facility] 14:15 [facility] Payment Agreement was scanned into [employer] and attached to record. 15 08/07 12:22 T-Sheet-- Draft Copy was scanned into [employer] and attached to record. gb Signatures: [facility] EDTN Papa Cohen,JEN RN Alejandra Balderas, Reg Reg gb Chuy Hilliard PA PA btw McGrath, Marlynn mm15 Shruti Horton RN RN kc3 The chart was reviewed and I authenticate all verbal orders and agree with the evaluation and treatment provided.Attachments: 08/06 14:15 [facility] Payment Agreement mm15 08/07 12:22 T-Sheet-- Draft Copy gb Chart Complete MTDD
== END 2016-08-06 11:40 | disposition home or self-care (01) ==
LOC: M ED 09:52
DX: R22.42 Localized swelling, mass and lump, left lower limb (principal); J45.909 Unspecified asthma, uncomplicated; H54.0 Blindness, both eyes; G40.909 Epilepsy, unspecified, not intractable, without status epilepticus; M81.0 Age-related osteoporosis without current pathological fracture; Z87.820 Personal history of traumatic brain injury; Z79.01 Long term (current) use of anticoagulants; Z79.899 Other long term (current) drug therapy; Z88.8 Allergy status to other drugs, medicaments and biological substances; Z88.0 Allergy status to penicillin

== ENCOUNTER → 2016-08-07 | Outpatient (REF) | payer MEDICAID ==
[2016-08-07 14:35] LABS: FREE T4 1.31 NG/DL (0.76-1.46)
[2016-08-07 14:49] LABS: BASO % 0.5 % (0.0-1.0); EOS # 0.3 K/mm3 (0.0-0.50); EOS % 7.4 % (0.0-3.0); LARGE UNSTAINED CELL # 0.2 K/mm3 (0.0-0.4); LARGE UNSTAINED CELL % 5.4 % (0.0-4.0); LYMPH # 1.4 K/mm3 (1.5-4.5); LYMPH % 32.9 % (24.0-44.0); MEAN CORPUSCULAR HEMOGLOBIN 33.1 pg (27.0-33.0); MEAN CORPUSCULAR VOLUME 103.6 fl (80.0-96.0); MONO # 0.5 K/mm3 (0.0-0.8); MONO % 11.8 % (0.0-5.0); NEUTROPHILS # 1.7 K/mm3 (1.8-7.7); NEUTROPHILS % 41.8 % (36.0-66.0); PLATELET COUNT, AUTOMATED 193 k/mm3 (150-450); RED CELL DISTRIBUTION WIDTH 17.3 % (11.5-14.5); WHITE BLOOD COUNT 4.1 K/mm3 (4.0-10.0)
== END ==
LOC: M SFHCPLAZ 11:41
PROVIDERS: ATTEND Nurse Practitioner Family
DX: M81.8 Other osteoporosis without current pathological fracture (principal); L65.9 Nonscarring hair loss, unspecified

== ENCOUNTER 2016-08-09 22:57 | Emergency (ER) | payer MEDICAID ==
[2016-08-10 00:17] LABS: INR 1.85
[2016-08-10 00:32] LABS: BASO % 0.4 % (0.0-1.0); EOS # 0.4 K/mm3 (0.0-0.50); EOS % 6.9 % (0.0-3.0); LARGE UNSTAINED CELL # 0.2 K/mm3 (0.0-0.4); LARGE UNSTAINED CELL % 3.5 % (0.0-4.0); LYMPH # 1.9 K/mm3 (1.5-4.5); LYMPH % 31.5 % (24.0-44.0); MEAN CORPUSCULAR HEMOGLOBIN 32.8 pg (27.0-33.0); MEAN CORPUSCULAR HGB CONC 31.6 g/dl (32.0-36.5); MEAN CORPUSCULAR VOLUME 103.8 fl (80.0-96.0); MONO # 0.6 K/mm3 (0.0-0.8); MONO % 11.5 % (0.0-5.0); NEUTROPHILS # 2.4 K/mm3 (1.8-7.7); NEUTROPHILS % 46.1 % (36.0-66.0); PLATELET COUNT, AUTOMATED 184 k/mm3 (150-450); RED CELL DISTRIBUTION WIDTH 18.1 % (11.5-14.5); WHITE BLOOD COUNT 5.3 K/mm3 (4.0-10.0)
[2016-08-10 00:50] LABS: ANION GAP 7 MEQ/L (8-16); BLOOD UREA NITROGEN 20 MG/DL (7-18); CALCIUM LEVEL 8.7 MG/DL (8.5-10.1); CARBON DIOXIDE LEVEL 29 MEQ/L (21-32); CHLORIDE LEVEL 107 MEQ/L (98-107); CREATININE FOR GFR 0.22 MG/DL (0.55-1.02); GLOMERULAR FILTRATION RATE > 60.0 (>60); GLUCOSE, FASTING 67 MG/DL (70-105); POTASSIUM SERUM 3.7 MEQ/L (3.5-5.1); SODIUM LEVEL 143 MEQ/L (136-145)
[2016-08-10 00:53] LABS: ADD MORPHOLOGY? YES
[2016-08-10 01:01] LABS: ANISOCYTOSIS 1+
--- NOTE | 2016-08-10 03:01 | EDDOCDS ---
Nurse's Notes [facility] Name: Klaudia Echeverria Age: 35 yrs Sex: Female : 1980 Arrival Date: 08/09/2016 Time: 22:57 Bed 10 Private MD: Diagnosis: Encounter for attention to gastrostomy Presentation: 08/09 23:01 Presenting complaint: EMS states: coming from [facility]; Pt started tube feeding at approx 6 js15 PM prior to arrival and staff noticed blood in feeding tube 30 mins prior to arrival to ED; tube feeding stopped at [facility]. Adult Sepsis Screening: The patient does not have new or worsening altered mentation. Patient's respiratory rate is less than 22. Systolic blood pressure is greater than 100. Patient has a qSOFA score of 0- Negative Sepsis Screen. Suicide/Homicide risk assessment- Unable to assess, due to patient's chronic mental disability. Status: Patient is not a director outpatient services or dependent. Transition of care: patient was received from [facility]. 23:01 Acuity: MILES Level 3 js15 23:01 Method Of Arrival: Ambulance js15 Triage Assessment: 23:07 General: Appears in no apparent distress. Pain: Unable to use pain scale. Does not js15 appear to understand pain scale. 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 Respiratory: Airway is patent Respiratory effort is even, unlabored, Respiratory pattern is regular, symmetrical. Derm: Skin is normal. 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 Atrovent 0.02 % Inhl soln QID and q2 PRN 2. clindamycin phosphate 1 % Topical gel QHS to face, underarms, behind ears 3. Colace 60mg/5ml oral 15 mL as needed also prn, via G tube 4. cyproheptadine 8 mg Oral tab 2 tabs 3 times per day G-tube 5. Dantrium 50 mg Oral cap 1 cap 3 times per day G-tube 6. fluconazole 150 mg Oral tab every 7 days 7. Dulcolax (bisacodyl) 10 mg Rectal supp 1 suppository After No BM for 5 days 8. Keppra 100 mg/mL Oral soln 500 mg Qam G-tube 9. minocycline 100 mg Oral cap 1 cap daily G-tube 10. mucinex-chest congestion 10ml Q4 PRN G tube 11. poly-vi-santi daily 12. nystatin 100,000 unit/gram Topical powd 100,000 unit/g BID PRN 13. Tranxene T-Tab 7.5 mg Oral tab 1 tab 2 times per day G-tube 14. multivitamin Oral liqd daily 15. Vimpat 50 mg AM 75 mg HS oral soln daily G-tube 16. Xarelto 20 mg oral tab 1 tab once daily G-tube 17. Zaditor 0.025 % (0.035 %) ophthalmic drop as needed 18. ranitidine HCl 150 mg Oral tab 1 tab 2 times per day give by mouth 19. Miralax 17 gram/dose Oral crea once daily G-tube 20. Xopenex 1.25 mg/3 mL Inhl nebu 3 mL QID and q2 PRN 21. Zyrtec 10 mg Oral tab once daily via g-tube 22. scopolamine base 1.5 mg transdermal pt72 1 patch every 3 days behind right ear - PMHx: anoxic brain injury; aspiration pneumonia; Asthma; BLINDNESS; Epilepsy; hypothermia; Osteoporosis; - PSHx: none; - Social history: Smoking status: Patient states was never smoker of tobacco. 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 - Family history: Not pertinent. - : The pt / caregiver states he / she is on anticoagulants: Xarelto Home medication list is obtained from [email or web address] import data, the facility MAR. - Exposure Risk Screening:: None identified. Screenin/05 00:56 Screening information is obtained from residence staff. Fall risk: At risk due to js15 apparent cognitive impairment, The following interventions are performed due to a positive Fall Risk Screen: side rails upx2, bed in low position; call light in reach; facility staff member at bedside. Assistance ADL's: Requires assistance with meal preparation, this assistance is provided by residence staff, bathing, assistance is provided by residence staff, dressing, assistance is provided by residence staff, toileting, assistance is provided by residence staff, medication administration, assistance is provided by residence staff. Abuse/DV Screen: The patient / caregiver reports he/she is: not in a situation that causes fear, pain or injury. Nutritional screening: On tube fed. Advance Directives: There is an active DNR order and the pt has a copy here at this time. home support is adequate. Assessment: 08/09 23:20 General: Appears in no apparent distress. Neurological: Level of Consciousness is js15 awake. Respiratory: Airway is patent Respiratory effort is even, unlabored, Respiratory pattern is regular, symmetrical, Breath sounds are coarse bilaterally. Derm: Skin is normal. 08/10 00:30 Reassessment: Patient appears in no apparent distress at this time. Pt resting on js15 stretcher with [facility] staff at bedside; respirations even and unlabored; skin normal, warm, dry. 01:45 Reassessment: Patient appears in no apparent distress at this time. Pt resting on js15 stretcher with [facility] staff at bedside; respirations even and unlabored; skin pink, warm, dry. 02:59 General: Appears in no apparent distress. Neurological: Level of Consciousness is js15 awake. Respiratory: Airway is patent Respiratory effort is even, unlabored, Respiratory pattern is regular, symmetrical. Derm: Skin is normal. Vital Signs: 08/09 23:02 BP 134 / 88; Pulse 76; Resp 20; Temp 95.9(TE); Pulse Ox 97% on R/A; Weight 68.04 kg roberto carlos (R); Height 4 ft. 9 in. (144.78 cm) (R); 02 02:25 BP 123 / 74; Pulse 77; Resp 18; Temp 96.1(TE); Pulse Ox 97% on R/A; roberto carlos 08/09 23:02 Body Mass Index 32.46 (68.04 kg, 144.78 cm) roberto carlos Vitals: 08/09 23:10 Log In Time N/A - ambulance arrival. 15 ED Course: 22:59 Patient visited by Tobi Huerta, Pharmaceutical Laboratory Technician. ml3 22:59 Karl[facility] Perez FNP [facility] le 22:59 Patient moved to Waiting ml3 22:59 Patient moved to 10 ml3 23:02 Accompanied by Caregiver, Patient has correct armband on for positive identification. roberto carlos Bed in low position. Call light in reach. Side rails up X2. Pulse ox on. NIBP on. 23:03 Patient visited by Ayla Grace PCA. roberto carlos 23:04 Triage Initiated js15 23:15 Patient visited by Karlene Perez FNP. le 23:15 Patient visited by Karlene Perez FNP. le 23:30 The patient / caregiver is instructed regarding the plan of care and ED course. js15 23:44 Type & Screen Sent. js15 23:44 Basic Metabolic Profile Sent. js15 23:44 CBC with Diff Sent. js15 23:44 Partial Thromboplastin Time Sent. js15 23:44 Prothrombin Time Profile\E\INR Sent. js15 02 00:15 Patient visited by Ayla Grace PCA. roberto carlos 00:54 Patient visited by Chante Mujica,JEN. js15 00:55 G tube; 50 cc sterile water, aspirated small amount of blood that became clear and js15 turned to gastric contents; Karlene RAMOS at bedside. 00:56 [facility] Payment Agreement was scanned into [employer] and attached to record. gjb 00:58 No IV's were initiated during this patient's visit. No procedures done that require aamrjit assistance. 01:39 Patient visited by Chante Mujica,JEN. js15 02:17 Howard Artis DO is Attending Physician. cs11 02:25 Patient visited by Ayla Grace PCA. roberto carlos Administered Medications: 08/09 23:22 CANCELLED (Other Intervention Used): NS 0.9% 1000 ml IV at 100 mL/hr continuous le Order Results: Lab Order: Basic Metabolic Profile; SPEC'M 08/09/16 23:42 Test: GLUCOSE, FASTING; Value: 67; Range: 70-105; Abnormal: Below low normal; Units: MG/DL; Status: F Test: BLOOD UREA NITROGEN; Value: 20; Range: 7-18; Abnormal: Above high normal; Units: MG/DL; Status: F Test: CREATININE FOR GFR; Value: 0.22; Range: 0.55-1.02; Abnormal: Below low normal; Units: MG/DL; Status: F Test: GLOMERULAR FILTRATION RATE; Value: > 60.0; Range: >60; Status: F Test: SODIUM LEVEL; Value: 143; Range: 136-145; Units: MEQ/L; Status: F Test: POTASSIUM SERUM; Value: 3.7; Range: 3.5-5.1; Units: MEQ/L; Status: F Test: CHLORIDE LEVEL; Value: 107; Range: 98-107; Units: MEQ/L; Status: F Test: CARBON DIOXIDE LEVEL; Value: 29; Range: 21-32; Units: MEQ/L; Status: F Test: ANION GAP; Value: 7; Range: 8-16; Abnormal: Below low normal; Units: MEQ/L; Status: F Test: CALCIUM LEVEL; Value: 8.7; Range: 8.5-10.1; Units: MG/DL; Status: F Test Note: ; Units are mL/min/1.73 m2 Chronic Kidney Disease Staging per NKF: Stage I & II GFR >=60 Normal to Mildly Decreased Stage III GFR 30-59 Moderately Decreased Stage IV GFR 15-29 Severely Decreased Stage V GFR <15 Very Little GFR Left ESRD GFR <15 on 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 STATISTICIAN Lab Order: CBC with Diff; SPEC'M 08/09/16 23:42 Test: WHITE BLOOD COUNT; Value: 5.3; Range: 4.0-10.0; Units: K/mm3; Status: F Test: RED BLOOD COUNT; Value: 3.62; Range: 4.00-5.40; Abnormal: Below low normal; Units: M/mm3; Status: F Test: HEMOGLOBIN; Value: 11.9; Range: 12.0-16.0; Abnormal: Below low normal; Units: g/dl; Status: F Test: HEMATOCRIT; Value: 37.6; Range: 36.0-47.0; Units: %; Status: F Test: MEAN CORPUSCULAR VOLUME; Value: 103.8; Range: 80.0-96.0; Abnormal: Above high normal; Units: fl; Status: F Test: MEAN CORPUSCULAR HEMOGLOBIN; Value: 32.8; Range: 27.0-33.0; Units: pg; Status: F Test: MEAN CORPUSCULAR HGB CONC; Value: 31.6; Range: 32.0-36.5; Abnormal: Below low normal; Units: g/dl; Status: F Test: RED CELL DISTRIBUTION WIDTH; Value: 18.1; Range: 11.5-14.5; Abnormal: Above high normal; Units: %; Status: F Test: PLATELET COUNT, AUTOMATED; Value: 184; Range: 150-450; Units: k/mm3; Status: F Test: NEUTROPHILS %; Value: 46.1; Range: 36.0-66.0; Units: %; Status: F Test: LYMPH %; Value: 31.5; Range: 24.0-44.0; Units: %; Status: F Test: MONO %; Value: 11.5; Range: 0.0-5.0; Abnormal: Above high normal; Units: %; Status: F Test: EOS %; Value: 6.9; Range: 0.0-3.0; Abnormal: Above high normal; Units: %; Status: F Test: BASO %; Value: 0.4; Range: 0.0-1.0; Units: %; Status: F Test: LARGE UNSTAINED CELL %; Value: 3.5; Range: 0.0-4.0; Units: %; Status: F Test: NEUTROPHILS #; Value: 2.4; Range: 1.8-7.7; Units: K/mm3; Status: F Test: LYMPH #; Value: 1.9; Range: 1.5-4.5; Units: K/mm3; Status: F Test: MONO #; Value: 0.6; Range: 0.0-0.8; Units: K/mm3; Status: F Test: EOS #; Value: 0.4; Range: 0.0-0.50; Units: K/mm3; Status: F Test: BASO #; Value: 0.0; Range: 0.0-0.2; Units: K/mm3; Status: F Test: LARGE UNSTAINED CELL #; Value: 0.2; Range: 0.0-0.4; Units: K/mm3; Status: F Lab Order: Partial Thromboplastin Time; SPEC'M 08/09/16 23:42 Test: PARTIAL THROMBOPLASTIN TIME; Value: 76.8; Range: 26.6-37.1; Abnormal: Above high normal; Units: SECONDS; Status: F Lab Order: Prothrombin Time Profile\E\INR; SPEC'M 08/09/16 23:42 Test: PROTHROMBIN TIME; Value: 21.4; Range: 12.3-14.5; Abnormal: Above high normal; Units: SECONDS; Status: F Test: INR; Value: 1.85; Status: F Test Note: ; THERAPUTIC HUMAN INR VALUES INDICATIONS NORMAL RANGES PROPHYLAXIS/TREATMENT OF: VENOUS THROMBOSIS 2.0-3.0 PULMONARY EMBOLISM 2.0-3.0 PREVENTION OF SYSTEMIC EMBOLISM FROM: TISSUE HEART VALVES 2.0-3.0 ACUTE MYOCARDIAL INFARCTION 2.0-3.0 VALVULAR HEART DISEASE 2.0-3.0 ATRIAL FIBRILLATION 2.0-3.0 MECHANICAL VALVES(HIGH RISK) 2.5-3.5 RECURRENT MYOCARDIAL INFARCTION 2.5-3.5 Lab Order: Type & Screen; SPEC'M 08/09/16 23:42 Test: BLOOD TYPE; Value: O POS; Status: F Test: AB SCREEN (INDIRECT KATHLEEN)GEL; Value: NEGATIVE; Status: F Lab Order: RBC MORPH PROF NO CHARGE; SPEC'M 08/09/16 23:42 Test: PLATELET ESTIMATE; Range: NORMAL; Status: I Test: RBC MORPHOLOGY; Value: NORMAL; Status: F Test: ANISOCYTOSIS; Value: 1+; Status: F Test: MACROCYTOSIS; Value: 3+; Status: F Test: PLATELET ESTIMATE; Value: NORMAL; Range: NORMAL; Status: F Outcome: 08/10 02:17 Discharge ordered by Provider. cs11 02:59 Discharge Assessment: Patient awake, patient administered narcotics - no. The following [facility] High Risk Discharge criteria are identified: None. Discharged to Extended [facility] Facility [facility]. Condition: unchanged. Discharge instructions given to maintenance planning clerk, Instructed on discharge instructions, follow up and referral plans. Demonstrated understanding of instructions, Pt was receptive of discharge instructions/ teaching. No special radiology studies were completed. Property given to [facility] staff. 03:01 Patient left the ED. js15 Signatures: Tobi Huerta, Pharmaceutical Laboratory Technician Unit ml3 Karlene Perez, MUSEUM INFORMATICS SPECIALIST MUSEUM INFORMATICS SPECIALISTAyla Fenton, NICOLAS SOCIAL WORK ASSOCIATE Howard Dawson DO DO cs11 Chante Mujica RN RN js15 Klaudia Botello MTDD
--- NOTE | 2016-08-10 03:01 | EDDOCDS ---
Physician Documentation [facility] Name: Klaudia Echeverria Age: 35 yrs Sex: Female : 1980 Arrival Date: 08/09/2016 Time: 22:57 Bed 10 Private MD: Disposition: 08/10/16 02:17 Discharged to Home/Self Care. Impression: Encounter for attention to gastrostomy. - Condition is Stable. - Medication Reconciliation, Local Pharmacy Hours form. - Follow up: Private Physician; When: Call to arrange an appointment; Reason: Recheck today's complaints. - Problem is an ongoing problem. - Symptoms have improved. Historical: - Allergies: ACTH; Augmentin; Biaxin; Lamictal; - Home Meds: 1. Atrovent 0.02 % Inhl soln QID and q2 PRN 2. clindamycin phosphate 1 % Topical gel QHS to face, underarms, behind ears 3. Colace 60mg/5ml oral 15 mL as needed also prn, via G tube 4. cyproheptadine 8 mg Oral tab 2 tabs 3 times per day G-tube 5. Dantrium 50 mg Oral cap 1 cap 3 times per day G-tube 6. fluconazole 150 mg Oral tab every 7 days 7. Dulcolax (bisacodyl) 10 mg Rectal supp 1 suppository After No BM for 5 days 8. Keppra 100 mg/mL Oral soln 500 mg Qam G-tube 9. minocycline 100 mg Oral cap 1 cap daily G-tube 10. mucinex-chest congestion 10ml Q4 PRN G tube 11. poly-vi-santi daily 12. nystatin 100,000 unit/gram Topical powd 100,000 unit/g BID PRN 13. Tranxene T-Tab 7.5 mg Oral tab 1 tab 2 times per day G-tube 14. multivitamin Oral liqd daily 15. Vimpat 50 mg AM 75 mg HS oral soln daily G-tube 16. Xarelto 20 mg oral tab 1 tab once daily G-tube 17. Zaditor 0.025 % (0.035 %) ophthalmic drop as needed 18. ranitidine HCl 150 mg Oral tab 1 tab 2 times per day give by mouth 19. Miralax 17 gram/dose Oral crea once daily G-tube 20. Xopenex 1.25 mg/3 mL Inhl nebu 3 mL QID and q2 PRN 21. Zyrtec 10 mg Oral tab once daily via g-tube 22. scopolamine base 1.5 mg transdermal pt72 1 patch every 3 days behind right ear - PMHx: anoxic brain injury; aspiration pneumonia; Asthma; BLINDNESS; Epilepsy; hypothermia; Osteoporosis; - PSHx: none; - Social history: Smoking status: Patient states was never smoker of tobacco. 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 - Family history: Not pertinent. - : The pt / caregiver states he / she is on anticoagulants: Xarelto Home medication list is obtained from [employer] import data, the facility SEP. - Exposure Risk Screening:: None identified. 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 9 in. (144.78 cm) (R); 02 02:25 BP 123 / 74; Pulse 77; Resp 18; Temp 96.1(TE); Pulse Ox 97% on R/A; roberto carlos 08/09 23:02 Body Mass Index 32.46 (68.04 kg, 144.78 cm) roberto carlos MDM: 08/09 23:14 Misc. Nursing Order ordered. le 23:14 Undress patient appropriately for examination ordered. le 23:15 Basic Metabolic Profile Ordered. EDMS 23:15 CBC with Diff Ordered. EDMS 23:15 Partial Thromboplastin Time Ordered. EDMS 23:15 Prothrombin Time Profile\E\INR Ordered. EDMS 23:15 NOTHING BY MOUTH+DIET ordered. EDMS 23:17 Type & Screen Ordered. EDMS 08/10 00:10 Financial registration complete. pm4 00:56 [facility] Payment Agreement was scanned into [employer] and attached to record. gjb 02:16 Basic Metabolic Profile Reviewed. cs11 02:16 CBC with Diff Reviewed. cs11 02:16 Partial Thromboplastin Time Reviewed. cs11 02:16 Prothrombin Time Profile\E\INR Reviewed. cs11 02:16 Type & Screen Reviewed. cs11 02:16 RBC MORPH PROF NO CHARGE Reviewed. cs11 Administered Medications: 08/09 23:22 CANCELLED (Other Intervention Used): NS 0.9% 1000 ml IV at 100 mL/hr continuous le Signatures: Dispatcher [employer] EDKarlene Davidson, FITNESS/WELLNESS DIRECTOR FITNESS/WELLNESS DIRECTOR Howard Donovan, DO cs11 Chante Mujica,RN RN js15 Klaudia Botello Paul, Reg Reg pm4 The chart was reviewed and I authenticate all verbal orders and agree with the evaluation and treatment provided.Corrections: (The following items were deleted from the chart) 23:22 23:14 NS 0.9% 1000 ml IV at 100 mL/hr continuous ordered. le le 23:23 23:14 IV Saline Lock ordered. le le 23:24 23:15 LIPASE+LAB ordered. EDMS EDMS 23:24 23:15 LIVER PROFILE+LAB ordered. EDMS EDMS Attachments: 08/10 00:56 [facility] Payment Agreement gjpraveen MTDD
--- NOTE | 2016-08-12 04:01 | EDDOCDS ---
Nurse's Notes [facility] Name: Klaudia Echeverria Age: 35 yrs Sex: Female : 1980 Arrival Date: 08/09/2016 Time: 22:57 Bed 10 Private MD: Diagnosis: Encounter for attention to gastrostomy Presentation: 08/09 23:01 Presenting complaint: EMS states: coming from [facility]; Pt started tube feeding at approx 6 js15 PM prior to arrival and staff noticed blood in feeding tube 30 mins prior to arrival to ED; tube feeding stopped at [facility]. Adult Sepsis Screening: The patient does not have new or worsening altered mentation. Patient's respiratory rate is less than 22. Systolic blood pressure is greater than 100. Patient has a qSOFA score of 0- Negative Sepsis Screen. Suicide/Homicide risk assessment- Unable to assess, due to patient's chronic mental disability. 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 Transition of care: patient was received from [facility]. 23:01 Acuity: MILES Level 3 js15 23:01 Method Of Arrival: Ambulance js15 Triage Assessment: 23:07 General: Appears in no apparent distress. Pain: Unable to use pain scale. Does not js15 appear to understand pain scale. 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 Respiratory: Airway is patent Respiratory effort is even, unlabored, Respiratory pattern is regular, symmetrical. Derm: Skin is normal. 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 Atrovent 0.02 % Inhl soln QID and q2 PRN 2. clindamycin phosphate 1 % Topical gel QHS to face, underarms, behind ears 3. Colace 60mg/5ml oral 15 mL as needed also prn, via G tube 4. cyproheptadine 8 mg Oral tab 2 tabs 3 times per day G-tube 5. Dantrium 50 mg Oral cap 1 cap 3 times per day G-tube 6. fluconazole 150 mg Oral tab every 7 days 7. Dulcolax (bisacodyl) 10 mg Rectal supp 1 suppository After No BM for 5 days 8. Keppra 100 mg/mL Oral soln 500 mg Qam G-tube 9. minocycline 100 mg Oral cap 1 cap daily G-tube 10. mucinex-chest congestion 10ml Q4 PRN G tube 11. poly-vi-santi daily 12. nystatin 100,000 unit/gram Topical powd 100,000 unit/g BID PRN 13. Tranxene T-Tab 7.5 mg Oral tab 1 tab 2 times per day G-tube 14. multivitamin Oral liqd daily 15. Vimpat 50 mg AM 75 mg HS oral soln daily G-tube 16. Xarelto 20 mg oral tab 1 tab once daily G-tube 17. Zaditor 0.025 % (0.035 %) ophthalmic drop as needed 18. ranitidine HCl 150 mg Oral tab 1 tab 2 times per day give by mouth 19. Miralax 17 gram/dose Oral crea once daily G-tube 20. Xopenex 1.25 mg/3 mL Inhl nebu 3 mL QID and q2 PRN 21. Zyrtec 10 mg Oral tab once daily via g-tube 22. scopolamine base 1.5 mg transdermal pt72 1 patch every 3 days behind right ear - PMHx: anoxic brain injury; aspiration pneumonia; Asthma; BLINDNESS; Epilepsy; hypothermia; Osteoporosis; - PSHx: none; - Social history: Smoking status: Patient states was never smoker of tobacco. 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 - Family history: Not pertinent. - : The pt / caregiver states he / she is on anticoagulants: Xarelto Home medication list is obtained from [employer] import data, the facility MAR. - Exposure Risk Screening:: None identified. Screenin/05 00:56 Screening information is obtained from residence staff. Fall risk: At risk due to js15 apparent cognitive impairment, The following interventions are performed due to a positive Fall Risk Screen: side rails upx2, bed in low position; call light in reach; facility staff member at bedside. Assistance ADL's: Requires assistance with meal preparation, this assistance is provided by residence staff, bathing, assistance is provided by residence staff, dressing, assistance is provided by residence staff, toileting, assistance is provided by residence staff, medication administration, assistance is provided by residence staff. Abuse/DV Screen: The patient / caregiver reports he/she is: not in a situation that causes fear, pain or injury. Nutritional screening: On tube fed. Advance Directives: There is an active DNR order and the pt has a copy here at this time. home support is adequate. Assessment: 08/09 23:20 General: Appears in no apparent distress. Neurological: Level of Consciousness is js15 awake. Respiratory: Airway is patent Respiratory effort is even, unlabored, Respiratory pattern is regular, symmetrical, Breath sounds are coarse bilaterally. Derm: Skin is normal. 08/10 00:30 Reassessment: Patient appears in no apparent distress at this time. Pt resting on js15 stretcher with [facility] staff at bedside; respirations even and unlabored; skin normal, warm, dry. 01:45 Reassessment: Patient appears in no apparent distress at this time. Pt resting on js15 stretcher with [facility] staff at bedside; respirations even and unlabored; skin pink, warm, dry. 02:59 General: Appears in no apparent distress. Neurological: Level of Consciousness is js15 awake. Respiratory: Airway is patent Respiratory effort is even, unlabored, Respiratory pattern is regular, symmetrical. Derm: Skin is normal. Vital Signs: 08/09 23:02 BP 134 / 88; Pulse 76; Resp 20; Temp 95.9(TE); Pulse Ox 97% on R/A; Weight 68.04 kg roberto carlos (R); Height 4 ft. 9 in. (144.78 cm) (R); 02 02:25 BP 123 / 74; Pulse 77; Resp 18; Temp 96.1(TE); Pulse Ox 97% on R/A; roberto carlos 08/09 23:02 Body Mass Index 32.46 (68.04 kg, 144.78 cm) roberto carlos Vitals: 08/09 23:10 Log In Time N/A - ambulance arrival. 15 ED Course: 22:59 Patient visited by Tobi Huerta, Care Analyst. ml3 22:59 [facility] le 22:59 Patient moved to Waiting ml3 22:59 Patient moved to 10 ml3 23:02 Accompanied by Caregiver, Patient has correct armband on for positive identification. roberto carlos Bed in low position. Call light in reach. Side rails up X2. Pulse ox on. NIBP on. 23:03 Patient visited by Ayla Grace PCA. roberto carlos 23:04 Triage Initiated js15 23:15 Patient visited by Karlene Perez FNP. le 23:15 Patient visited by Karlene Perez FNP. le 23:30 The patient / caregiver is instructed regarding the plan of care and ED course. js15 23:44 Type & Screen Sent. js15 23:44 Basic Metabolic Profile Sent. js15 23:44 CBC with Diff Sent. js15 23:44 Partial Thromboplastin Time Sent. js15 23:44 Prothrombin Time Profile\E\INR Sent. js15 02 00:15 Patient visited by Ayla Grace PCA. roberto carlos 00:54 Patient visited by Chante Mujica,JEN. js15 00:55 G tube; 50 cc sterile water, aspirated small amount of blood that became clear and js15 turned to gastric contents; Karlene RAMOS at bedside. 00:56 [facility] Payment Agreement was scanned into [employer] and attached to record. gjb 00:58 No IV's were initiated during this patient's visit. No procedures done that require amarjit assistance. 01:39 Patient visited by Chante Mujica,JEN. js15 02:17 Howard Artis DO is Attending Physician. cs11 02:25 Patient visited by Ayla Grace PCA. roberto carlos 12:15 T-Sheet-- Draft Copy was scanned into [employer] and attached to record. gb Administered Medications: 08/09 23:22 CANCELLED (Other Intervention Used): NS 0.9% 1000 ml IV at 100 mL/hr continuous le Order Results: Lab Order: Basic Metabolic Profile; SPEC'M 08/09/16 23:42 Test: GLUCOSE, FASTING; Value: 67; Range: 70-105; Abnormal: Below low normal; Units: MG/DL; Status: F Test: BLOOD UREA NITROGEN; Value: 20; Range: 7-18; Abnormal: Above high normal; Units: MG/DL; Status: F Test: CREATININE FOR GFR; Value: 0.22; Range: 0.55-1.02; Abnormal: Below low normal; Units: MG/DL; Status: F Test: GLOMERULAR FILTRATION RATE; Value: > 60.0; Range: >60; Status: F Test: SODIUM LEVEL; Value: 143; Range: 136-145; Units: MEQ/L; Status: F Test: POTASSIUM SERUM; Value: 3.7; Range: 3.5-5.1; Units: MEQ/L; Status: F Test: CHLORIDE LEVEL; Value: 107; Range: 98-107; Units: MEQ/L; Status: F Test: CARBON DIOXIDE LEVEL; Value: 29; Range: 21-32; Units: MEQ/L; Status: F Test: ANION GAP; Value: 7; Range: 8-16; Abnormal: Below low normal; Units: MEQ/L; Status: F Test: CALCIUM LEVEL; Value: 8.7; Range: 8.5-10.1; Units: MG/DL; Status: F Test Note: ; Units are mL/min/1.73 m2 Chronic Kidney Disease Staging per NKF: Stage I & II GFR >=60 Normal to Mildly Decreased Stage III GFR 30-59 Moderately Decreased Stage IV GFR 15-29 Severely Decreased Stage V GFR <15 Very Little GFR Left ESRD GFR <15 on INFORMATION ASSISTANT Lab Order: CBC with Diff; SPEC'M 08/09/16 23:42 Test: WHITE BLOOD COUNT; Value: 5.3; Range: 4.0-10.0; Units: K/mm3; Status: F Test: RED BLOOD COUNT; Value: 3.62; Range: 4.00-5.40; Abnormal: Below low normal; Units: M/mm3; Status: F Test: HEMOGLOBIN; Value: 11.9; Range: 12.0-16.0; Abnormal: Below low normal; Units: g/dl; Status: F Test: HEMATOCRIT; Value: 37.6; Range: 36.0-47.0; Units: %; Status: F Test: MEAN CORPUSCULAR VOLUME; Value: 103.8; Range: 80.0-96.0; Abnormal: Above high normal; Units: fl; Status: F Test: MEAN CORPUSCULAR HEMOGLOBIN; Value: 32.8; Range: 27.0-33.0; Units: pg; Status: F Test: MEAN CORPUSCULAR HGB CONC; Value: 31.6; Range: 32.0-36.5; Abnormal: Below low normal; Units: g/dl; Status: F Test: RED CELL DISTRIBUTION WIDTH; Value: 18.1; Range: 11.5-14.5; Abnormal: Above high normal; Units: %; Status: F Test: PLATELET COUNT, AUTOMATED; Value: 184; Range: 150-450; Units: k/mm3; Status: F Test: NEUTROPHILS %; Value: 46.1; Range: 36.0-66.0; Units: %; Status: F Test: LYMPH %; Value: 31.5; Range: 24.0-44.0; Units: %; Status: F Test: MONO %; Value: 11.5; Range: 0.0-5.0; Abnormal: Above high normal; Units: %; Status: F Test: EOS %; Value: 6.9; Range: 0.0-3.0; Abnormal: Above high normal; Units: %; Status: F Test: BASO %; Value: 0.4; Range: 0.0-1.0; Units: %; Status: F Test: LARGE UNSTAINED CELL %; Value: 3.5; Range: 0.0-4.0; Units: %; Status: F Test: NEUTROPHILS #; Value: 2.4; Range: 1.8-7.7; Units: K/mm3; Status: F Test: LYMPH #; Value: 1.9; Range: 1.5-4.5; Units: K/mm3; Status: F Test: MONO #; Value: 0.6; Range: 0.0-0.8; Units: K/mm3; Status: F Test: EOS #; Value: 0.4; Range: 0.0-0.50; Units: K/mm3; Status: F Test: BASO #; Value: 0.0; Range: 0.0-0.2; Units: K/mm3; Status: F Test: LARGE UNSTAINED CELL #; Value: 0.2; Range: 0.0-0.4; Units: K/mm3; Status: F Lab Order: Partial Thromboplastin Time; SPEC'M 08/09/16 23:42 Test: PARTIAL THROMBOPLASTIN TIME; Value: 76.8; Range: 26.6-37.1; Abnormal: Above high normal; Units: SECONDS; Status: F Lab Order: Prothrombin Time Profile\E\INR; SPEC'M 08/09/16 23:42 Test: PROTHROMBIN TIME; Value: 21.4; Range: 12.3-14.5; Abnormal: Above high normal; Units: SECONDS; Status: F Test: INR; Value: 1.85; Status: F Test Note: ; THERAPUTIC HUMAN INR VALUES INDICATIONS NORMAL RANGES PROPHYLAXIS/TREATMENT OF: VENOUS THROMBOSIS 2.0-3.0 PULMONARY EMBOLISM 2.0-3.0 PREVENTION OF SYSTEMIC EMBOLISM FROM: TISSUE HEART VALVES 2.0-3.0 ACUTE MYOCARDIAL INFARCTION 2.0-3.0 VALVULAR HEART DISEASE 2.0-3.0 ATRIAL FIBRILLATION 2.0-3.0 MECHANICAL VALVES(HIGH RISK) 2.5-3.5 RECURRENT MYOCARDIAL INFARCTION 2.5-3.5 Lab Order: Type & Screen; SPEC'M 08/09/16 23:42 Test: BLOOD TYPE; Value: O POS; Status: F Test: AB SCREEN (INDIRECT KATHLEEN)GEL; Value: NEGATIVE; Status: F Lab Order: RBC MORPH PROF NO CHARGE; SPEC'M 08/09/16 23:42 Test: PLATELET ESTIMATE; Range: NORMAL; Status: I Test: RBC MORPHOLOGY; Value: NORMAL; Status: F Test: ANISOCYTOSIS; Value: 1+; Status: F Test: MACROCYTOSIS; Value: 3+; Status: F Test: PLATELET ESTIMATE; Value: NORMAL; Range: NORMAL; Status: F Outcome: 08/10 02:17 Discharge ordered by Provider. cs11 02:59 Discharge Assessment: Patient awake, patient administered narcotics - no. The following js15 High Risk Discharge criteria are identified: None. Discharged to Extended [facility]. Condition: unchanged. Discharge instructions given to pbx mechanic, Instructed on discharge instructions, follow up and referral plans. Demonstrated understanding of instructions, Pt was receptive of discharge instructions/ teaching. No special radiology studies were completed. Property given to [facility] staff. 03:01 Patient left the ED. js15 Signatures: Alejandra Orlando, Reg Reg gb Deanna MoonWangEdwina, Care Analyst Unit ml3 Karlene Perez, MATHEMATICS TECHNICIAN MATHEMATICS TECHNICIAN Ayla Ravi, NICOLAS MACHINERY RIGGER Howard Dawson DO DO cs11 Chante Mujica,RN RN js15 Klaudia Botello Chart Complete MTDD
--- NOTE | 2016-08-12 04:01 | EDDOCDS ---
Physician Documentation [facility] Name: Klaudia Echeverria Age: 35 yrs Sex: Female : 1980 Arrival Date: 08/09/2016 Time: 22:57 Bed 10 Private MD: Disposition: 08/10/16 02:17 Discharged to Home/Self Care. Impression: Encounter for attention to gastrostomy. - Condition is Stable. - Medication Reconciliation, Local Pharmacy Hours form. - Follow up: Private Physician; When: Call to arrange an appointment; Reason: Recheck today's complaints. - Problem is an ongoing problem. - Symptoms have improved. Historical: - Allergies: ACTH; Augmentin; Biaxin; Lamictal; - Home Meds: 1. Atrovent 0.02 % Inhl soln QID and q2 PRN 2. clindamycin phosphate 1 % Topical gel QHS to face, underarms, behind ears 3. Colace 60mg/5ml oral 15 mL as needed also prn, via G tube 4. cyproheptadine 8 mg Oral tab 2 tabs 3 times per day G-tube 5. Dantrium 50 mg Oral cap 1 cap 3 times per day G-tube 6. fluconazole 150 mg Oral tab every 7 days 7. Dulcolax (bisacodyl) 10 mg Rectal supp 1 suppository After No BM for 5 days 8. Keppra 100 mg/mL Oral soln 500 mg Qam G-tube 9. minocycline 100 mg Oral cap 1 cap daily G-tube 10. mucinex-chest congestion 10ml Q4 PRN G tube 11. poly-vi-santi daily 12. nystatin 100,000 unit/gram Topical powd 100,000 unit/g BID PRN 13. Tranxene T-Tab 7.5 mg Oral tab 1 tab 2 times per day G-tube 14. multivitamin Oral liqd daily 15. Vimpat 50 mg AM 75 mg HS oral soln daily G-tube 16. Xarelto 20 mg oral tab 1 tab once daily G-tube 17. Zaditor 0.025 % (0.035 %) ophthalmic drop as needed 18. ranitidine HCl 150 mg Oral tab 1 tab 2 times per day give by mouth 19. Miralax 17 gram/dose Oral crea once daily G-tube 20. Xopenex 1.25 mg/3 mL Inhl nebu 3 mL QID and q2 PRN 21. Zyrtec 10 mg Oral tab once daily via g-tube 22. scopolamine base 1.5 mg transdermal pt72 1 patch every 3 days behind right ear - PMHx: anoxic brain injury; aspiration pneumonia; Asthma; BLINDNESS; Epilepsy; hypothermia; Osteoporosis; - PSHx: none; - Social history: Smoking status: Patient states was never smoker of tobacco. 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 - Family history: Not pertinent. - : The pt / caregiver states he / she is on anticoagulants: Xarelto Home medication list is obtained from [employer] import data, the facility SEP. - Exposure Risk Screening:: None identified. 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 9 in. (144.78 cm) (R); 0205 02:25 BP 123 / 74; Pulse 77; Resp 18; Temp 96.1(TE); Pulse Ox 97% on R/A; roberto carlos 08/09 23:02 Body Mass Index 32.46 (68.04 kg, 144.78 cm) roberto carlos MDM: 08/09 23:14 Misc. Nursing Order ordered. le 23:14 Undress patient appropriately for examination ordered. le 23:15 Basic Metabolic Profile Ordered. EDMS 23:15 CBC with Diff Ordered. EDMS 23:15 Partial Thromboplastin Time Ordered. EDMS 23:15 Prothrombin Time Profile\E\INR Ordered. EDMS 23:15 NOTHING BY MOUTH+DIET ordered. EDMS 23:17 Type & Screen Ordered. EDMS 08/10 00:10 Financial registration complete. pm4 00:56 [facility] Payment Agreement was scanned into [employer] and attached to record. gjb 02:16 Basic Metabolic Profile Reviewed. cs11 02:16 CBC with Diff Reviewed. cs11 02:16 Partial Thromboplastin Time Reviewed. cs11 02:16 Prothrombin Time Profile\E\INR Reviewed. cs11 02:16 Type & Screen Reviewed. cs11 02:16 RBC MORPH PROF NO CHARGE Reviewed. cs11 12:15 T-Sheet-- Draft Copy was scanned into [employer] and attached to record. gb Administered Medications: 08/09 23:22 CANCELLED (Other Intervention Used): NS 0.9% 1000 ml IV at 100 mL/hr continuous le Signatures: Dispatcher [employer] EDMS Alejandra Orlando, Reg Reg gb Karlene Perez, MICROBIOLOGY LAB ASSISTANT MICROBIOLOGY LAB ASSISTANT Howard Donovan, DO cs11 Chante Mujica,RN RN js15 Klaudia Botello gjb Carlos Mcintosh, Reg Reg pm4 The chart was reviewed and I authenticate all verbal orders and agree with the evaluation and treatment provided.Corrections: (The following items were deleted from the chart) 23:22 23:14 NS 0.9% 1000 ml IV at 100 mL/hr continuous ordered. le le 23:23 23:14 IV Saline Lock ordered. le le 23:24 23:15 LIPASE+LAB ordered. EDMS EDMS 23:24 23:15 LIVER PROFILE+LAB ordered. EDMS EDMS Attachments: 08/10 00:56 [facility] [place] Agreement gj 12:15 T-Sheet-- Draft Copy gb [facility]
--- NOTE | 2016-08-12 04:02 | EDDOCDS ---
Physician Documentation [facility] Name: Klaudia Echeverria Age: 35 yrs Sex: Female : 1980 Arrival Date: 08/09/2016 Time: 22:57 Bed 10 Private MD: Disposition: 08/10/16 02:17 Discharged to Home/Self Care. Impression: Encounter for attention to gastrostomy. - Condition is Stable. - Medication Reconciliation, Local Pharmacy Hours form. - Follow up: Private Physician; When: Call to arrange an appointment; Reason: Recheck today's complaints. - Problem is an ongoing problem. - Symptoms have improved. Historical: - Allergies: ACTH; Augmentin; Biaxin; Lamictal; - Home Meds: 1. Atrovent 0.02 % Inhl soln QID and q2 PRN 2. clindamycin phosphate 1 % Topical gel QHS to face, underarms, behind ears 3. Colace 60mg/5ml oral 15 mL as needed also prn, via G tube 4. cyproheptadine 8 mg Oral tab 2 tabs 3 times per day G-tube 5. Dantrium 50 mg Oral cap 1 cap 3 times per day G-tube 6. fluconazole 150 mg Oral tab every 7 days 7. Dulcolax (bisacodyl) 10 mg Rectal supp 1 suppository After No BM for 5 days 8. Keppra 100 mg/mL Oral soln 500 mg Qam G-tube 9. minocycline 100 mg Oral cap 1 cap daily G-tube 10. mucinex-chest congestion 10ml Q4 PRN G tube 11. poly-vi-santi daily 12. nystatin 100,000 unit/gram Topical powd 100,000 unit/g BID PRN 13. Tranxene T-Tab 7.5 mg Oral tab 1 tab 2 times per day G-tube 14. multivitamin Oral liqd daily 15. Vimpat 50 mg AM 75 mg HS oral soln daily G-tube 16. Xarelto 20 mg oral tab 1 tab once daily G-tube 17. Zaditor 0.025 % (0.035 %) ophthalmic drop as needed 18. ranitidine HCl 150 mg Oral tab 1 tab 2 times per day give by mouth 19. Miralax 17 gram/dose Oral crea once daily G-tube 20. Xopenex 1.25 mg/3 mL Inhl nebu 3 mL QID and q2 PRN 21. Zyrtec 10 mg Oral tab once daily via g-tube 22. scopolamine base 1.5 mg transdermal pt72 1 patch every 3 days behind right ear - PMHx: anoxic brain injury; aspiration pneumonia; Asthma; BLINDNESS; Epilepsy; hypothermia; Osteoporosis; - PSHx: none; - Social history: Smoking status: Patient states was never smoker of tobacco. 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 - Family history: Not pertinent. - : The pt / caregiver states he / she is on anticoagulants: Xarelto Home medication list is obtained from [employer] import data, the facility SEP. - Exposure Risk Screening:: None identified. 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 9 in. (144.78 cm) (R); 0205 02:25 BP 123 / 74; Pulse 77; Resp 18; Temp 96.1(TE); Pulse Ox 97% on R/A; roberto carlos 08/09 23:02 Body Mass Index 32.46 (68.04 kg, 144.78 cm) roberto carlos MDM: 08/09 23:14 Misc. Nursing Order ordered. le 23:14 Undress patient appropriately for examination ordered. le 23:15 Basic Metabolic Profile Ordered. EDMS 23:15 CBC with Diff Ordered. EDMS 23:15 Partial Thromboplastin Time Ordered. EDMS 23:15 Prothrombin Time Profile\E\INR Ordered. EDMS 23:15 NOTHING BY MOUTH+DIET ordered. EDMS 23:17 Type & Screen Ordered. EDMS 08/10 00:10 Financial registration complete. pm4 00:56 [facility] Payment Agreement was scanned into [email or web address] and attached to record. gjb 02:16 Basic Metabolic Profile Reviewed. cs11 02:16 CBC with Diff Reviewed. cs11 02:16 Partial Thromboplastin Time Reviewed. cs11 02:16 Prothrombin Time Profile\E\INR Reviewed. cs11 02:16 Type & Screen Reviewed. cs11 02:16 RBC MORPH PROF NO CHARGE Reviewed. cs11 12:15 T-Sheet-- Draft Copy was scanned into [email or web address] and attached to record. gb Administered Medications: 08/09 23:22 CANCELLED (Other Intervention Used): NS 0.9% 1000 ml IV at 100 mL/hr continuous le Signatures: Dispatcher [employer] EDMS Alejandra Orlando, Reg Reg gb Karlene Perez, STOGY ROLLER STOGY ROLLER Howard Donovan, DO cs11 Chante Mujica,RN RN js15 Klaudia Botello gjb Carlos Mcintosh, Reg Reg pm4 The chart was reviewed and I authenticate all verbal orders and agree with the evaluation and treatment provided.Corrections: (The following items were deleted from the chart) 23:22 23:14 NS 0.9% 1000 ml IV at 100 mL/hr continuous ordered. le le 23:23 23:14 IV Saline Lock ordered. le le 23:24 23:15 LIPASE+LAB ordered. EDMS EDMS 23:24 23:15 LIVER PROFILE+LAB ordered. EDMS EDMS Attachments: 08/10 00:56 [facility] [place] Payment Agreement gj 12:15 T-Sheet-- Draft Copy gb [facility]
== END 2016-08-10 03:01 | disposition home or self-care (01) ==
LOC: M ED 22:57
DX: Z43.1 Encounter for attention to gastrostomy (principal); G93.1 Anoxic brain damage, not elsewhere classified; J45.909 Unspecified asthma, uncomplicated; G40.909 Epilepsy, unspecified, not intractable, without status epilepticus; M81.0 Age-related osteoporosis without current pathological fracture; H54.0 Blindness, both eyes; Z79.1 Long term (current) use of non-steroidal anti-inflammatories (NSAID); Z88.1 Allergy status to other antibiotic agents; Z88.8 Allergy status to other drugs, medicaments and biological substances

== ENCOUNTER 2016-08-22 08:47 | Emergency (ER) | payer MEDICAID ==
[2016-08-22 10:41] LABS: MEAN CORPUSCULAR HEMOGLOBIN 33.1 pg (27.0-33.0); MEAN CORPUSCULAR HGB CONC 31.9 g/dl (32.0-36.5); MEAN CORPUSCULAR VOLUME 103.9 fl (80.0-96.0); PLATELET COUNT, AUTOMATED 296 k/mm3 (150-450); RED CELL DISTRIBUTION WIDTH 17.7 % (11.5-14.5); WHITE BLOOD COUNT 4.5 K/mm3 (4.0-10.0)
[2016-08-22 10:55] LABS: ANISOCYTOSIS 1+; EOSINOPHILS 8 % (0-5)
[2016-08-22] MEDS ORDERED: READI-CAT 2 As Ordered ONE (11:06)
--- NOTE | 2016-08-22 11:25 | REP ---
Clinical: Gastrostomy tube position. Technique: Two supine views of the abdomen and pelvis. Findings: A gastrostomy tube is identified with balloon overlying the left mid abdomen possibly within the inferior aspect of the stomach. There is no evidence for bowel obstruction. No obvious contrast collection is noted although subtle intraluminal contrast is suggested within the left upper quadrant and possibly within the colon. No organomegaly. Skeletal structures stable including pelvic and hip deformities. Impression: Gastrostomy tube appears to overlie the inferior aspect of the stomach bubble. Definite, exact position cannot definitively be ascertained. Signed by Mac Montes MD 08/22/2016 11:23 A
--- NOTE | 2016-08-22 13:28 | EDDOCDS ---
Nurse's Notes [facility] Name: Klaudia Echeverria Age: 35 yrs Sex: Female : 1980 Arrival Date: 08/22/2016 Time: 08:47 Bed 9 Private MD: Efrain Lara Diagnosis: Gastrostomy status Presentation: 08/22 08:52 Presenting complaint: EMS states: Patient has blood in feeding tube that was not ja5 present after it was flushed this morning. 08:53 Adult Sepsis Screening: The patient does not have new or worsening altered mentation. ja5 Systolic blood pressure is greater than 100. Patient has a qSOFA score of 0- Negative Sepsis Screen. Suicide/Homicide risk assessment- the patient denies having any suicidal and/or homicidal ideations and does not present with any other emotional, behavioral or mental health complaints. 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 Transition of care: patient was received from [facility]. 08:53 Acuity: MILES Level 3 ja5 08:53 Method Of Arrival: Ambulance ja5 Triage Assessment: 09:13 General: Appears in no apparent distress. Pain: Unable to use pain scale. HIV screening ja5 NA for this visit patient unable to provide consent. The patient is triaged at the bedside. See Assessment in Nurses Notes section of ED record. The patient is triaged at the bedside. See Assessment in Nurses Notes section of ED record. FLIGHT INFORMATION EXPEDITER: 09:13 staff states irregular, lsat known menses unknown ja5 Historical: - Allergies: ACTH; Augmentin; Biaxin; Lamictal; - Home Meds: 1. Atrovent 0.02 % Inhl soln QID and q2 PRN (Last dose: Unknown) 2. Xopenex 1.25 mg/3 mL Inhl nebu 3 mL QID and q2 PRN (Last dose: Unknown) 3. Dantrium 50 mg Oral cap 1 cap 3 times per day G-tube (Last dose: Unknown) 4. cyproheptadine 8 mg Oral tab 2 tabs 3 times per day G-tube (Last dose: Unknown) 5. Dulcolax (bisacodyl) 10 mg Rectal supp 1 suppository After No BM for 5 days (Last dose: Unknown) 6. Colace 60mg/5ml oral 15 mL as needed also prn, via G tube (Last dose: Unknown) 7. benefiber TID in 60ml of water via g-tube (Last dose: Unknown) 8. Tranxene T-Tab 7.5 mg Oral tab 1 tab 2 times per day G-tube (Last dose: Unknown) 9. Miralax 17 gram/dose Oral crea once daily G-tube mix in 4oz water (Last dose: Unknown) 10. Keppra 100 mg/mL Oral soln 500 mg Qam G-tube (Last dose: Unknown) 11. mucinex-chest congestion 10ml Q4 PRN G tube (Last dose: Unknown) 12. nystatin 100,000 unit/gram Topical powd 100,000 unit/g BID PRN to groin (Last dose: Unknown) 13. Vimpat 50 mg AM 75 mg HS oral soln daily G-tube (Last dose: Unknown) 14. scopolamine base 1.5 mg transdermal pt72 1 patch every 3 days behind right ear (Last dose: Unknown) 15. fluconazole 150 mg Oral tab every 7 days (Last dose: Unknown) 16. clindamycin phosphate 1 % Topical gel QHS to face, underarms, behind ears (Last dose: Unknown) 17. minocycline 100 mg Oral cap 1 cap daily G-tube (Last dose: Unknown) 18. Xarelto 20 mg oral tab 1 tab once daily G-tube (Last dose: Unknown) 19. ranitidine HCl 150 mg Oral tab 1 tab 2 times per day (Last dose: Unknown) 20. Zaditor 0.025 % (0.035 %) ophthalmic drop 2 times per day (Last dose: Unknown) 21. poly-vi-santi 1 mL daily (Last dose: Unknown) 22. Zyrtec 10 mg Oral tab nightly via g-tube (Last dose: Unknown) - PMHx: anoxic brain injury; aspiration pneumonia; Asthma; BLINDNESS; Epilepsy; hypothermia; Osteoporosis; - PSHx: g/j-tube; - Social history: Smoking status: unknown if patient ever smoked tobacco. Patient is speech impaired. - Family history: Not pertinent. - : The pt / caregiver states he / she is on anticoagulants: Xarelto Home medication list is obtained from facility medication list. - Exposure Risk Screening:: Unable to Assess. Screenin:51 Infection Control. lbd 12:36 Screening information is obtained from residence staff, prior medical records. Fall jc4 risk: At risk due to immobility, The following interventions are performed due to a positive Fall Risk Screen: Fall Risk is added to Special Handling on the patient Summary Screen. A Fall Risk Bracelet was applied to the patient. Side Rails are placed in the up position. A Call Chavez is given with instruction to call for help when getting out of bed. Assistance ADL's: Requires assistance with meal preparation, this assistance is provided by residence staff, bathing, assistance is provided by residence staff, dressing, assistance is provided by residence staff, toileting, assistance is provided by residence staff, ambulation, assistance is provided by residence staff, housework, assistance is provided by residence staff, medication administration, assistance is provided by residence staff. Abuse/DV Screen: The patient / caregiver reports he/she is: pt cannot be assessed for living situation at this time. Nutritional screening: NPO, patient receives tube feedings. Advance Directives: There is an active DNR order and the pt has a copy here at this time. home support is adequate. Assessment: 09:21 General: Appears comfortable. Pain: Unable to use pain scale. Neurological: Level of ja5 Consciousness is awake, Speech non verbal (baseline for patient). Cardiovascular: Heart tones S1 S2 present. Respiratory: Airway is patent Respiratory effort is even, unlabored, Respiratory pattern is regular, symmetrical, Breath sounds with rhonchi expiratory. GI: g/j-tube Bowel sounds hypoactive in right upper quadrant, left upper quadrant, right lower quadrant and left lower quadrant. GI: other bright red blood present in g/j-tube. Derm: Skin is pink, warm & dry. 11:22 General: Patient returned from xray, tolerated well. Is now laying in stretcher in low ja5 position with side rails up. Patient has high volume of oral secretions that require frequent suctioning. Head of bed elevated 35 degrees. O2 sat 96% on RA with even unlabored respirations. [facility] staff at bedside at this time. . 12:43 General: Patient is awake, laying in stretcher with eyes open. Patient is not actively ja5 coughing or require suctioning at the moment. She is accompanied by a [facility] staff member and they are still awaiting results from the KUB. Bed is in low position, side rails up, call chavez is in reach, all needs have been addressed at this time. . 13:25 General: Appears in no apparent distress, comfortable. Neurological: Level of jc4 Consciousness is awake, patient is non-verbal. Respiratory: Airway is patent Respiratory effort is even, unlabored, Respiratory pattern is regular, symmetrical. GI: other J/G Tube in place. No redness/swelling or bleeding noted from site or in tubing. Derm: Skin is pink, warm & dry. Vital Signs: 08:54 BP 121 / 76; Pulse 66; Resp 18; Temp 95.4(TE); Pulse Ox 97% on R/A; Weight 68.04 kg ct3 (R); Height 4 ft. 9 in. (144.78 cm) (R); 13:26 BP 131 / 83; Pulse 62; Resp 20; Temp 96.1(TE); Pulse Ox 97% on R/A; jc4 08:54 Body Mass Index 32.46 (68.04 kg, 144.78 cm) ct3 Vitals: 08:54 Log In Time N/A - ambulance arrival. ct3 ED Course: 08:49 Patient visited by Cary Vargas, Electrical Design Technician. lbd 08:49 Patient moved to Waiting lbd 08:50 Efrain Lara MD is Private Physician. lbd 08:50 Bettie Camarillo,RN is Primary Nurse. lbd 08:50 Linda Chan,RN is Primary Nurse. lbd 08:50 Laura Harman, RN is Primary Nurse. lbd 08:50 Patient moved to 9 lbd 08:52 Matilde Marques MD is Attending Physician. fg 08:53 Patient visited by Matilde Marques MD. fg 08:54 Patient has correct armband on for positive identification. Bed in low position. Call ct3 light in reach. Side rails up X2. Cardiac monitoring not applicable on this patient. 08:55 Triage Initiated ja5 08:58 Patient visited by Dorina Serna PCA. ct3 09:00 The patient / caregiver is instructed regarding the plan of care and ED course. jc4 09:59 Patient visited by Linda Chan,JEN. ja5 10:12 [facility] Payment Agreement was scanned into [employer] and attached to record. mm15 10:16 CBC with Diff Sent. jc4 10:44 DIFFERENTIAL NO CHARGE Sent. jc4 11:00 Patient visited by Matilde Marques MD. fg 11:59 KUB Returned. EDMS 12:02 Patient visited by Dorina Serna PCA. ct3 12:35 Primary Nurse role handed off by Bettie Cmaarillo RN jc4 12:39 Efrain Lara MD is Referral Physician. fg 12:42 Patient visited by Linda Chan RN. ja5 12:45 Patient visited by Linda Chan RN. ja5 13:27 No IV's were initiated during this patient's visit. No procedures done that require jc4 assistance. Administered Medications: 09:42 Not Given (Duplicate Order): Barium Sulfate Suspension 450 ml Feeding Tube once fg 11:22 Drug: Barium Sulfate 50 ml [barium sulfate 2.1 % (w/v), 2.0 % (w/w) oral suspension (50 ja5 mL)] Route: Feeding Tube; Order Results: Lab Order: CBC with Diff; SPEC'M 08/22/16 10:15 Test: WHITE BLOOD COUNT; Value: 4.5; Range: 4.0-10.0; Units: K/mm3; Status: F Test: RED BLOOD COUNT; Value: 3.58; Range: 4.00-5.40; Abnormal: Below low normal; Units: M/mm3; Status: F Test: HEMOGLOBIN; Value: 11.9; Range: 12.0-16.0; Abnormal: Below low normal; Units: g/dl; Status: F Test: HEMATOCRIT; Value: 37.2; Range: 36.0-47.0; Units: %; Status: F Test: MEAN CORPUSCULAR VOLUME; Value: 103.9; Range: 80.0-96.0; Abnormal: Above high normal; Units: fl; Status: F Test: MEAN CORPUSCULAR HEMOGLOBIN; Value: 33.1; Range: 27.0-33.0; Abnormal: Above high normal; Units: pg; Status: F Test: MEAN CORPUSCULAR HGB CONC; Value: 31.9; Range: 32.0-36.5; Abnormal: Below low normal; Units: g/dl; Status: F Test: RED CELL DISTRIBUTION WIDTH; Value: 17.7; Range: 11.5-14.5; Abnormal: Above high normal; Units: %; Status: F Test: PLATELET COUNT, AUTOMATED; Value: 296; Range: 150-450; Units: k/mm3; Status: F Test: NEUTROPHILS; Value: 39; Range: 35-75; Units: %; Status: F Test: LYMPHOCYTES; Value: 27; Range: 16-52; Units: %; Status: F Test: MONOCYTES; Value: 10; Range: 0-8; Abnormal: Above high normal; Units: %; Status: F Test: EOSINOPHILS; Value: 8; Range: 0-5; Abnormal: Above high normal; Units: %; Status: F Test: ATYPICAL LYMPH; Value: 16; Range: 0-5; Abnormal: Above high normal; Units: %; Status: F Test: ANISOCYTOSIS; Value: 1+; Status: F Test: MACROCYTOSIS; Value: 2+; Status: F Lab Order: PLATELET ESTIMATE; SPEC'M 08/22/16 10:15 Test: PLATELET ESTIMATE; Value: NORMAL; Range: NORMAL; Status: F Radiology Order: KUB Test: KUB REASON FOR EXAMINATION: check g tube placement; Clinical: Gastrostomy tube position.; ; Technique: Two supine views of the abdomen and pelvis.; ; Findings:; A gastrostomy tube is identified with balloon overlying the left mid abdomen; possibly within the inferior aspect of the stomach. There is no evidence for; bowel obstruction. No obvious contrast collection is noted although subtle; intraluminal contrast is suggested within the left upper quadrant and possibly; within the colon. No organomegaly. Skeletal structures stable including pelvic; and hip deformities.; ; Impression:; Gastrostomy tube appears to overlie the inferior aspect of the stomach bubble.; Definite, exact position cannot definitively be ascertained.; ; ; Signed by; Mac Montes MD 08/22/2016 11:23 A; Outcome: 12:41 Discharge ordered by Provider. fg 13:27 Discharge Assessment: Patient awake, patient administered narcotics - no. The following 4 High Risk Discharge criteria are identified: None. [facility]charged to [facility] via [facility] stretcher transport ambulette. Condition: stable. No special radiology studies were completed. Property :Personal belongings accompany Pt. 13:27 Patient left the ED. jc4 Signatures: Dispatcher [employer] EDCary Pina, Electrical Design Technician Unit lbd Laura Harman RN RN jc4 Dorina Serna, NICOLAS GLUE DRIER OPERATOR ct3 Benedicto Daltno mm15 Matilde Marques MD MD Linda Chan RN RN ja5 Corrections: (The following items were deleted from the chart) 08:57 08:54 BP 121 / 76; Pulse 66bpm; Resp 18bpm; Pulse Ox 97% RA; Temp 95.4F Temporal; ct3 ct3 11:30 11:22 General: Patient returned from xray, tolerated well. Is now laying in stretcher ja5 in low position with side rails up. Patient has high volume of oral secretions that require frequent suctioning. O2 sat 96% on RA with even unlabored respirations. [facility] staff at bedside at this time. . ja5 MTDD
--- NOTE | 2016-08-22 13:28 | EDDOCDS ---
Physician Documentation [facility] Name: Klaudia Echeverria Age: 35 yrs Sex: Female : 1980 Arrival Date: 08/22/2016 Time: 08:47 Bed 9 Private MD: Efrain Lara Disposition: 08/22/16 12:41 Discharged to Home/Self Care. Impression: Gastrostomy status. - Condition is Stable. - Discharge Instructions: PEG, Home Care, [id number]. - Medication Reconciliation, Local Pharmacy Hours form. - Follow up: Efrain Lara MD; When: Call to arrange an appointment; Reason: Continuance of care. - Problem is chronic. - Symptoms have improved. - Notes: You have been evalutated for your PEG tube. Dr. Calloway evaluated your tube and found it to be in a good location. Please follow up with your PCP if the bleeding continues. Historical: - Allergies: ACTH; Augmentin; Biaxin; Lamictal; - Home Meds: 1. Atrovent 0.02 % Inhl soln QID and q2 PRN (Last dose: Unknown) 2. Xopenex 1.25 mg/3 mL Inhl nebu 3 mL QID and q2 PRN (Last dose: Unknown) 3. Dantrium 50 mg Oral cap 1 cap 3 times per day G-tube (Last dose: Unknown) 4. cyproheptadine 8 mg Oral tab 2 tabs 3 times per day G-tube (Last dose: Unknown) 5. Dulcolax (bisacodyl) 10 mg Rectal supp 1 suppository After No BM for 5 days (Last dose: Unknown) 6. Colace 60mg/5ml oral 15 mL as needed also prn, via G tube (Last dose: Unknown) 7. benefiber TID in 60ml of water via g-tube (Last dose: Unknown) 8. Tranxene T-Tab 7.5 mg Oral tab 1 tab 2 times per day G-tube (Last dose: Unknown) 9. Miralax 17 gram/dose Oral crea once daily G-tube mix in 4oz water (Last dose: Unknown) 10. Keppra 100 mg/mL Oral soln 500 mg Qam G-tube (Last dose: Unknown) 11. mucinex-chest congestion 10ml Q4 PRN G tube (Last dose: Unknown) 12. nystatin 100,000 unit/gram Topical powd 100,000 unit/g BID PRN to groin (Last dose: Unknown) 13. Vimpat 50 mg AM 75 mg HS oral soln daily G-tube (Last dose: Unknown) 14. scopolamine base 1.5 mg transdermal pt72 1 patch every 3 days behind right ear (Last dose: Unknown) 15. fluconazole 150 mg Oral tab every 7 days (Last dose: Unknown) 16. clindamycin phosphate 1 % Topical gel QHS to face, underarms, behind ears (Last dose: Unknown) 17. minocycline 100 mg Oral cap 1 cap daily G-tube (Last dose: Unknown) 18. Xarelto 20 mg oral tab 1 tab once daily G-tube (Last dose: Unknown) 19. ranitidine HCl 150 mg Oral tab 1 tab 2 times per day (Last dose: Unknown) 20. Zaditor 0.025 % (0.035 %) ophthalmic drop 2 times per day (Last dose: Unknown) 21. poly-vi-santi 1 mL daily (Last dose: Unknown) 22. Zyrtec 10 mg Oral tab nightly via g-tube (Last dose: Unknown) - PMHx: anoxic brain injury; aspiration pneumonia; Asthma; BLINDNESS; Epilepsy; hypothermia; Osteoporosis; - PSHx: g/j-tube; - Social history: Smoking status: unknown if patient ever smoked tobacco. Patient is speech impaired. - Family history: Not pertinent. - : The pt / caregiver states he / she is on anticoagulants: Xarelto Home medication list is obtained from facility medication list. - Exposure Risk Screening:: Unable to Assess. MANAGED SERVICES CONSULTANT: 08/22 09:13 staff states irregular, lsat known menses unknown ja5 Vital Signs: 08:54 BP 121 / 76; Pulse 66; Resp 18; Temp 95.4(TE); Pulse Ox 97% on R/A; Weight 68.04 kg / ct3 150 lbs (R); Height 4 ft. 9 in. (144.78 cm) (R); 13:26 BP 131 / 83; Pulse 62; Resp 20; Temp 96.1(TE); Pulse Ox 97% on R/A; jc4 08:54 Body Mass Index 32.46 (68.04 kg, 144.78 cm) ct3 MDM: 09:05 Financial registration complete. mm15 09:09 Barium Sulfate Suspension 450 ml Feeding Tube once ordered. fg 09:11 KUB Ordered. EDMS 09:41 CBC with Diff Ordered. EDMS 09:42 Barium Sulfate Suspension 50 ml Feeding Tube once; place 50 ml per port to confirm fg placement. ordered. 09:51 Misc. Nursing Order ordered. ja5 10:12 [facility] Payment Agreement was scanned into [employer] and attached to record. mm15 10:43 DIFFERENTIAL NO CHARGE Ordered. EDMS Administered Medications: 09:42 Not Given (Duplicate Order): Barium Sulfate Suspension 450 ml Feeding Tube once fg 11:22 Drug: Barium Sulfate 50 ml [barium sulfate 2.1 % (w/v), 2.0 % (w/w) oral suspension (50 ja5 mL)] Route: Feeding Tube; Signatures: Dispatcher [employer] Laura Perez, JEN RN jc4 Benedicto Dalton mm15 Matilde Marques MD MD fg Anderson, Jessica, RN RN ja5 The chart was reviewed and I authenticate all verbal orders and agree with the evaluation and treatment provided.Attachments: 10:12 [facility] Payment Agreement mm15 MTDD
--- NOTE | 2016-08-24 14:28 | EDDOCDS ---
Physician Documentation [facility] Name: Klaudia Echeverria Age: 35 yrs Sex: Female : 1980 Arrival Date: 08/22/2016 Time: 08:47 Bed 9 Private MD: Efrain Lara Disposition: 08/22/16 12:41 Discharged to Home/Self Care. Impression: Gastrostomy status. - Condition is Stable. - Discharge Instructions: PEG, Home Care, [id number]. - Medication Reconciliation, Local Pharmacy Hours form. - Follow up: Efrain Lara MD; When: Call to arrange an appointment; Reason: Continuance of care. - Problem is chronic. - Symptoms have improved. - Notes: You have been evalutated for your PEG tube. Dr. Calloway evaluated your tube and found it to be in a good location. Please follow up with your PCP if the bleeding continues. Historical: - Allergies: ACTH; Augmentin; Biaxin; Lamictal; - Home Meds: 1. Atrovent 0.02 % Inhl soln QID and q2 PRN (Last dose: Unknown) 2. Xopenex 1.25 mg/3 mL Inhl nebu 3 mL QID and q2 PRN (Last dose: Unknown) 3. Dantrium 50 mg Oral cap 1 cap 3 times per day G-tube (Last dose: Unknown) 4. cyproheptadine 8 mg Oral tab 2 tabs 3 times per day G-tube (Last dose: Unknown) 5. Dulcolax (bisacodyl) 10 mg Rectal supp 1 suppository After No BM for 5 days (Last dose: Unknown) 6. Colace 60mg/5ml oral 15 mL as needed also prn, via G tube (Last dose: Unknown) 7. benefiber TID in 60ml of water via g-tube (Last dose: Unknown) 8. Tranxene T-Tab 7.5 mg Oral tab 1 tab 2 times per day G-tube (Last dose: Unknown) 9. Miralax 17 gram/dose Oral crea once daily G-tube mix in 4oz water (Last dose: Unknown) 10. Keppra 100 mg/mL Oral soln 500 mg Qam G-tube (Last dose: Unknown) 11. mucinex-chest congestion 10ml Q4 PRN G tube (Last dose: Unknown) 12. nystatin 100,000 unit/gram Topical powd 100,000 unit/g BID PRN to groin (Last dose: Unknown) 13. Vimpat 50 mg AM 75 mg HS oral soln daily G-tube (Last dose: Unknown) 14. scopolamine base 1.5 mg transdermal pt72 1 patch every 3 days behind right ear (Last dose: Unknown) 15. fluconazole 150 mg Oral tab every 7 days (Last dose: Unknown) 16. clindamycin phosphate 1 % Topical gel QHS to face, underarms, behind ears (Last dose: Unknown) 17. minocycline 100 mg Oral cap 1 cap daily G-tube (Last dose: Unknown) 18. Xarelto 20 mg oral tab 1 tab once daily G-tube (Last dose: Unknown) 19. ranitidine HCl 150 mg Oral tab 1 tab 2 times per day (Last dose: Unknown) 20. Zaditor 0.025 % (0.035 %) ophthalmic drop 2 times per day (Last dose: Unknown) 21. poly-vi-santi 1 mL daily (Last dose: Unknown) 22. Zyrtec 10 mg Oral tab nightly via g-tube (Last dose: Unknown) - PMHx: anoxic brain injury; aspiration pneumonia; Asthma; BLINDNESS; Epilepsy; hypothermia; Osteoporosis; - PSHx: g/j-tube; - Social history: Smoking status: unknown if patient ever smoked tobacco. Patient is speech impaired. - Family history: Not pertinent. - : The pt / caregiver states he / she is on anticoagulants: Xarelto Home medication list is obtained from facility medication list. - Exposure Risk Screening:: Unable to Assess. PATIENT OFFICE REP: 08/22 09:13 staff states irregular, lsat known menses unknown ja5 Vital Signs: 08:54 BP 121 / 76; Pulse 66; Resp 18; Temp 95.4(TE); Pulse Ox 97% on R/A; Weight 68.04 kg / ct3 150 lbs (R); Height 4 ft. 9 in. (144.78 cm) (R); 13:26 BP 131 / 83; Pulse 62; Resp 20; Temp 96.1(TE); Pulse Ox 97% on R/A; jc4 08:54 Body Mass Index 32.46 (68.04 kg, 144.78 cm) ct3 MDM: 09:05 Financial registration complete. mm15 09:09 Barium Sulfate Suspension 450 ml Feeding Tube once ordered. fg 09:11 KUB Ordered. EDMS 09:41 CBC with Diff Ordered. EDMS 09:42 Barium Sulfate Suspension 50 ml Feeding Tube once; place 50 ml per port to confirm fg placement. ordered. 09:51 Misc. Nursing Order ordered. ja5 10:12 [facility] Payment Agreement was scanned into [employer] and attached to record. mm15 10:43 DIFFERENTIAL NO CHARGE Ordered. EDMS 08/23 11:06 T-Sheet-- Draft Copy was scanned into [employer] and attached to record. gb Administered Medications: 08/22 09:42 Not Given (Duplicate Order): Barium Sulfate Suspension 450 ml Feeding Tube once fg 11:22 Drug: Barium Sulfate 50 ml [barium sulfate 2.1 % (w/v), 2.0 % (w/w) oral suspension (50 ja5 mL)] Route: Feeding Tube; Signatures: Dispatcher [employer] EDMS Alejandra Orlando, Reg Reg gb Laura Harman, JEN RN [email or web address] Benedicto Dalton mm15 Matilde Marques MD MD fg Anderson, Jessica,RN RN ja5 The chart was reviewed and I authenticate all verbal orders and agree with the evaluation and treatment provided.Attachments: 10:12 [facility] Payment Agreement mm15 08/23 11:06 T-Sheet-- Draft Copy gb Chart Complete MTDD
--- NOTE | 2016-08-24 14:28 | EDDOCDS ---
Physician Documentation [facility] Name: Klaudia Echeverria Age: 35 yrs Sex: Female : 1980 Arrival Date: 08/22/2016 Time: 08:47 Bed 9 Private MD: Efrain Lara Disposition: 08/22/16 12:41 Discharged to Home/Self Care. Impression: Gastrostomy status. - Condition is Stable. - Discharge Instructions: PEG, Home Care, [id number]. - Medication Reconciliation, Local Pharmacy Hours form. - Follow up: Efrain Lara MD; When: Call to arrange an appointment; Reason: Continuance of care. - Problem is chronic. - Symptoms have improved. - Notes: You have been evalutated for your PEG tube. Dr. Calloway evaluated your tube and found it to be in a good location. Please follow up with your PCP if the bleeding continues. Historical: - Allergies: ACTH; Augmentin; Biaxin; Lamictal; - Home Meds: 1. Atrovent 0.02 % Inhl soln QID and q2 PRN (Last dose: Unknown) 2. Xopenex 1.25 mg/3 mL Inhl nebu 3 mL QID and q2 PRN (Last dose: Unknown) 3. Dantrium 50 mg Oral cap 1 cap 3 times per day G-tube (Last dose: Unknown) 4. cyproheptadine 8 mg Oral tab 2 tabs 3 times per day G-tube (Last dose: Unknown) 5. Dulcolax (bisacodyl) 10 mg Rectal supp 1 suppository After No BM for 5 days (Last dose: Unknown) 6. Colace 60mg/5ml oral 15 mL as needed also prn, via G tube (Last dose: Unknown) 7. benefiber TID in 60ml of water via g-tube (Last dose: Unknown) 8. Tranxene T-Tab 7.5 mg Oral tab 1 tab 2 times per day G-tube (Last dose: Unknown) 9. Miralax 17 gram/dose Oral crea once daily G-tube mix in 4oz water (Last dose: Unknown) 10. Keppra 100 mg/mL Oral soln 500 mg Qam G-tube (Last dose: Unknown) 11. mucinex-chest congestion 10ml Q4 PRN G tube (Last dose: Unknown) 12. nystatin 100,000 unit/gram Topical powd 100,000 unit/g BID PRN to groin (Last dose: Unknown) 13. Vimpat 50 mg AM 75 mg HS oral soln daily G-tube (Last dose: Unknown) 14. scopolamine base 1.5 mg transdermal pt72 1 patch every 3 days behind right ear (Last dose: Unknown) 15. fluconazole 150 mg Oral tab every 7 days (Last dose: Unknown) 16. clindamycin phosphate 1 % Topical gel QHS to face, underarms, behind ears (Last dose: Unknown) 17. minocycline 100 mg Oral cap 1 cap daily G-tube (Last dose: Unknown) 18. Xarelto 20 mg oral tab 1 tab once daily G-tube (Last dose: Unknown) 19. ranitidine HCl 150 mg Oral tab 1 tab 2 times per day (Last dose: Unknown) 20. Zaditor 0.025 % (0.035 %) ophthalmic drop 2 times per day (Last dose: Unknown) 21. poly-vi-santi 1 mL daily (Last dose: Unknown) 22. Zyrtec 10 mg Oral tab nightly via g-tube (Last dose: Unknown) - PMHx: anoxic brain injury; aspiration pneumonia; Asthma; BLINDNESS; Epilepsy; hypothermia; Osteoporosis; - PSHx: g/j-tube; - Social history: Smoking status: unknown if patient ever smoked tobacco. Patient is speech impaired. - Family history: Not pertinent. - : The pt / caregiver states he / she is on anticoagulants: Xarelto Home medication list is obtained from facility medication list. - Exposure Risk Screening:: Unable to Assess. 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 9 in. (144.78 cm) (R); 13:26 BP 131 / 83; Pulse 62; Resp 20; Temp 96.1(TE); Pulse Ox 97% on R/A; jc4 08:54 Body Mass Index 32.46 (68.04 kg, 144.78 cm) ct3 MDM: 09:05 Financial registration complete. mm15 09:09 Barium Sulfate Suspension 450 ml Feeding Tube once ordered. fg 09:11 KUB Ordered. EDMS 09:41 CBC with Diff Ordered. EDMS 09:42 Barium Sulfate Suspension 50 ml Feeding Tube once; place 50 ml per port to confirm fg placement. ordered. 09:51 Misc. Nursing Order ordered. ja5 10:12 [facility] Payment Agreement was scanned into [employer] and attached to record. mm15 10:43 DIFFERENTIAL NO CHARGE Ordered. EDMS 08/23 11:06 T-Sheet-- Draft Copy was scanned into [employer] and attached to record. gb Administered Medications: 08/22 09:42 Not Given (Duplicate Order): Barium Sulfate Suspension 450 ml Feeding Tube once fg 11:22 Drug: Barium Sulfate 50 ml [barium sulfate 2.1 % (w/v), 2.0 % (w/w) oral suspension (50 ja5 mL)] Route: Feeding Tube; Signatures: Dispatcher [employer] EDMS Alejandra Orlando, Reg Reg gb Laura Harman, JEN RN [email or web address] Benedicto Dalton mm15 Matilde Marques MD MD fg Anderson, Jessica,RN RN ja5 The chart was reviewed and I authenticate all verbal orders and agree with the evaluation and treatment provided.Attachments: 10:12 [facility] Payment Agreement mm15 08/23 11:06 T-Sheet-- Draft Copy gb Chart Complete MTDD
--- NOTE | 2016-08-24 14:28 | EDDOCDS ---
Nurse's Notes [facility] Name: Klaudia Echeverria Age: 35 yrs Sex: Female : 1980 Arrival Date: 08/22/2016 Time: 08:47 Bed 9 Private MD: Efrain Lara Diagnosis: Gastrostomy status Presentation: 08/22 08:52 Presenting complaint: EMS states: Patient has blood in feeding tube that was not ja5 present after it was flushed this morning. 08:53 Adult Sepsis Screening: The patient does not have new or worsening altered mentation. ja5 Systolic blood pressure is greater than 100. Patient has a qSOFA score of 0- Negative Sepsis Screen. Suicide/Homicide risk assessment- the patient denies having any suicidal and/or homicidal ideations and does not present with any other emotional, behavioral or mental health complaints. Status: Patient is not a customer service rep or dependent. Transition of care: patient was received from [facility]. 08:53 Acuity: MILES Level 3 ja5 08:53 Method Of Arrival: Ambulance ja5 Triage Assessment: 09:13 General: Appears in no apparent distress. Pain: Unable to use pain scale. HIV screening ja5 NA for this visit patient unable to provide consent. The patient is triaged at the bedside. See Assessment in Nurses Notes section of ED record. The patient is triaged at the bedside. See Assessment in Nurses Notes section of ED record. 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 Atrovent 0.02 % Inhl soln QID and q2 PRN (Last dose: Unknown) 2. Xopenex 1.25 mg/3 mL Inhl nebu 3 mL QID and q2 PRN (Last dose: Unknown) 3. Dantrium 50 mg Oral cap 1 cap 3 times per day G-tube (Last dose: Unknown) 4. cyproheptadine 8 mg Oral tab 2 tabs 3 times per day G-tube (Last dose: Unknown) 5. Dulcolax (bisacodyl) 10 mg Rectal supp 1 suppository After No BM for 5 days (Last dose: Unknown) 6. Colace 60mg/5ml oral 15 mL as needed also prn, via G tube (Last dose: Unknown) 7. benefiber TID in 60ml of water via g-tube (Last dose: Unknown) 8. Tranxene T-Tab 7.5 mg Oral tab 1 tab 2 times per day G-tube (Last dose: Unknown) 9. Miralax 17 gram/dose Oral crea once daily G-tube mix in 4oz water (Last dose: Unknown) 10. Keppra 100 mg/mL Oral soln 500 mg Qam G-tube (Last dose: Unknown) 11. mucinex-chest congestion 10ml Q4 PRN G tube (Last dose: Unknown) 12. nystatin 100,000 unit/gram Topical powd 100,000 unit/g BID PRN to groin (Last dose: Unknown) 13. Vimpat 50 mg AM 75 mg HS oral soln daily G-tube (Last dose: Unknown) 14. scopolamine base 1.5 mg transdermal pt72 1 patch every 3 days behind right ear (Last dose: Unknown) 15. fluconazole 150 mg Oral tab every 7 days (Last dose: Unknown) 16. clindamycin phosphate 1 % Topical gel QHS to face, underarms, behind ears (Last dose: Unknown) 17. minocycline 100 mg Oral cap 1 cap daily G-tube (Last dose: Unknown) 18. Xarelto 20 mg oral tab 1 tab once daily G-tube (Last dose: Unknown) 19. ranitidine HCl 150 mg Oral tab 1 tab 2 times per day (Last dose: Unknown) 20. Zaditor 0.025 % (0.035 %) ophthalmic drop 2 times per day (Last dose: Unknown) 21. poly-vi-santi 1 mL daily (Last dose: Unknown) 22. Zyrtec 10 mg Oral tab nightly via g-tube (Last dose: Unknown) - PMHx: anoxic brain injury; aspiration pneumonia; Asthma; BLINDNESS; Epilepsy; hypothermia; Osteoporosis; - PSHx: g/j-tube; - Social history: Smoking status: unknown if patient ever smoked tobacco. Patient is speech impaired. - Family history: Not pertinent. - : The pt / caregiver states he / she is on anticoagulants: Xarelto Home medication list is obtained from facility medication list. - Exposure Risk Screening:: Unable to Assess. Screenin:51 Infection Control. lbd 12:36 Screening information is obtained from residence staff, prior medical records. Fall jc4 risk: At risk due to immobility, The following interventions are performed due to a positive Fall Risk Screen: Fall Risk is added to Special Handling on the patient Summary Screen. A Fall Risk Bracelet was applied to the patient. Side Rails are placed in the up position. A Call Chavez is given with instruction to call for help when getting out of bed. Assistance ADL's: Requires assistance with meal preparation, this assistance is provided by residence staff, bathing, assistance is provided by residence staff, dressing, assistance is provided by residence staff, toileting, assistance is provided by residence staff, ambulation, assistance is provided by residence staff, housework, assistance is provided by residence staff, medication administration, assistance is provided by residence staff. Abuse/DV Screen: The patient / caregiver reports he/she is: pt cannot be assessed for living situation at this time. Nutritional screening: NPO, patient receives tube feedings. Advance Directives: There is an active DNR order and the pt has a copy here at this time. home support is adequate. Assessment: 09:21 General: Appears comfortable. Pain: Unable to use pain scale. Neurological: Level of ja5 Consciousness is awake, Speech non verbal (baseline for patient). Cardiovascular: Heart tones S1 S2 present. Respiratory: Airway is patent Respiratory effort is even, unlabored, Respiratory pattern is regular, symmetrical, Breath sounds with rhonchi expiratory. GI: g/j-tube Bowel sounds hypoactive in right upper quadrant, left upper quadrant, right lower quadrant and left lower quadrant. GI: other bright red blood present in g/j-tube. Derm: Skin is pink, warm & dry. 11:22 General: Patient returned from xray, tolerated well. Is now laying in stretcher in low ja5 position with side rails up. Patient has high volume of oral secretions that require frequent suctioning. Head of bed elevated 35 degrees. O2 sat 96% on RA with even unlabored respirations. [facility] staff at bedside at this time. . 12:43 General: Patient is awake, laying in stretcher with eyes open. Patient is not actively ja5 coughing or require suctioning at the moment. She is accompanied by a [facility] staff member and they are still awaiting results from the KUB. Bed is in low position, side rails up, call chavez is in reach, all needs have been addressed at this time. . 13:25 General: Appears in no apparent distress, comfortable. Neurological: Level of jc4 Consciousness is awake, patient is non-verbal. Respiratory: Airway is patent Respiratory effort is even, unlabored, Respiratory pattern is regular, symmetrical. GI: other J/G Tube in place. No redness/swelling or bleeding noted from site or in tubing. Derm: Skin is pink, warm & dry. Vital Signs: 08:54 BP 121 / 76; Pulse 66; Resp 18; Temp 95.4(TE); Pulse Ox 97% on R/A; Weight 68.04 kg ct3 (R); Height 4 ft. 9 in. (144.78 cm) (R); 13:26 BP 131 / 83; Pulse 62; Resp 20; Temp 96.1(TE); Pulse Ox 97% on R/A; jc4 08:54 Body Mass Index 32.46 (68.04 kg, 144.78 cm) ct3 Vitals: 08:54 Log In Time N/A - ambulance arrival. ct3 ED Course: 08:49 Patient visited by Cary Vargas, Supervisor Paper Machine. lbd 08:49 Patient moved to Waiting lbd 08:50 Efrain Lara MD is Private Physician. lbd 08:50 Bettie Camarillo,RN is Primary Nurse. lbd 08:50 Linda Chan,RN is Primary Nurse. lbd 08:50 Laura Harman, RN is Primary Nurse. lbd 08:50 Patient moved to 9 lbd 08:52 Matilde Marques MD is Attending Physician. fg 08:53 Patient visited by Matilde Marques MD. fg 08:54 Patient has correct armband on for positive identification. Bed in low position. Call ct3 light in reach. Side rails up X2. Cardiac monitoring not applicable on this patient. 08:55 Triage Initiated ja5 08:58 Patient visited by Dorina Serna PCA. ct3 09:00 The patient / caregiver is instructed regarding the plan of care and ED course. jc4 09:59 Patient visited by Linda Chan,JEN. ja5 10:12 [facility] Payment Agreement was scanned into [email or web address] and attached to record. mm15 10:16 CBC with Diff Sent. jc4 10:44 DIFFERENTIAL NO CHARGE Sent. jc4 11:00 Patient visited by Matilde Marques MD. fg 11:59 KUB Returned. EDMS 12:02 Patient visited by Dorina Serna PCA. ct3 12:35 Primary Nurse role handed off by Bettie Camarillo RN jc4 12:39 Efrain Lara MD is Referral Physician. fg 12:42 Patient visited by Linda Chan RN. ja5 12:45 Patient visited by Linda Chan RN. ja5 13:27 No IV's were initiated during this patient's visit. No procedures done that require jc4 assistance. 08/23 11:06 T-Sheet-- Draft Copy was scanned into [email or web address] and attached to record. gb Administered Medications: 08/22 09:42 Not Given (Duplicate Order): Barium Sulfate Suspension 450 ml Feeding Tube once fg 11:22 Drug: Barium Sulfate 50 ml [barium sulfate 2.1 % (w/v), 2.0 % (w/w) oral suspension (50 ja5 mL)] Route: Feeding Tube; Order Results: Lab Order: CBC with Diff; SPEC'M 08/22/16 10:15 Test: WHITE BLOOD COUNT; Value: 4.5; Range: 4.0-10.0; Units: K/mm3; Status: F Test: RED BLOOD COUNT; Value: 3.58; Range: 4.00-5.40; Abnormal: Below low normal; Units: M/mm3; Status: F Test: HEMOGLOBIN; Value: 11.9; Range: 12.0-16.0; Abnormal: Below low normal; Units: g/dl; Status: F Test: HEMATOCRIT; Value: 37.2; Range: 36.0-47.0; Units: %; Status: F Test: MEAN CORPUSCULAR VOLUME; Value: 103.9; Range: 80.0-96.0; Abnormal: Above high normal; Units: fl; Status: F Test: MEAN CORPUSCULAR HEMOGLOBIN; Value: 33.1; Range: 27.0-33.0; Abnormal: Above high normal; Units: pg; Status: F Test: MEAN CORPUSCULAR HGB CONC; Value: 31.9; Range: 32.0-36.5; Abnormal: Below low normal; Units: g/dl; Status: F Test: RED CELL DISTRIBUTION WIDTH; Value: 17.7; Range: 11.5-14.5; Abnormal: Above high normal; Units: %; Status: F Test: PLATELET COUNT, AUTOMATED; Value: 296; Range: 150-450; Units: k/mm3; Status: F Test: NEUTROPHILS; Value: 39; Range: 35-75; Units: %; Status: F Test: LYMPHOCYTES; Value: 27; Range: 16-52; Units: %; Status: F Test: MONOCYTES; Value: 10; Range: 0-8; Abnormal: Above high normal; Units: %; Status: F Test: EOSINOPHILS; Value: 8; Range: 0-5; Abnormal: Above high normal; Units: %; Status: F Test: ATYPICAL LYMPH; Value: 16; Range: 0-5; Abnormal: Above high normal; Units: %; Status: F Test: ANISOCYTOSIS; Value: 1+; Status: F Test: MACROCYTOSIS; Value: 2+; Status: F Lab Order: PLATELET ESTIMATE; SPEC'M 08/22/16 10:15 Test: PLATELET ESTIMATE; Value: NORMAL; Range: NORMAL; Status: F Radiology Order: KUB Test: KUB REASON FOR EXAMINATION: check g tube placement; Clinical: Gastrostomy tube position.; ; Technique: Two supine views of the abdomen and pelvis.; ; Findings:; A gastrostomy tube is identified with balloon overlying the left mid abdomen; possibly within the inferior aspect of the stomach. There is no evidence for; bowel obstruction. No obvious contrast collection is noted although subtle; intraluminal contrast is suggested within the left upper quadrant and possibly; within the colon. No organomegaly. Skeletal structures stable including pelvic; and hip deformities.; ; Impression:; Gastrostomy tube appears to overlie the inferior aspect of the stomach bubble.; Definite, exact position cannot definitively be ascertained.; ; ; Signed by; Mac Montes MD 08/22/2016 11:23 A; Outcome: 12:41 Discharge ordered by Provider. fg 13:27 Discharge Assessment: Patient awake, patient administered narcotics - no. The following jc4 High Risk Discharge criteria are identified: None. Discharged to [facility] via [facility] stretcher transport ambulette. Condition: stable. No special radiology studies were completed. Property :Personal belongings accompany Pt. 13:27 Patient left the ED. jc4 Signatures: Dispatcher [employer] EDCary Pina, Supervisor Paper Machine Unit lbd Alejandra Orlando, Reg Reg gb Laura Harman, RN RN jc4 Dorina Serna, EXECUTIVE COMMUNICATIONS MANAGER EXECUTIVE COMMUNICATIONS MANAGER ct3 Benedicto Dalton mm15 Matilde Marques MD MD fg Anderson, JessicaRN RN ja5 Corrections: (The following items were deleted from the chart) 08:57 08:54 BP 121 / 76; Pulse 66bpm; Resp 18bpm; Pulse Ox 97% RA; Temp 95.4F Temporal; ct3 ct3 11:30 11:22 General: Patient returned from xray, tolerated well. Is now laying in stretcher ja5 in low position with side rails up. Patient has high volume of oral secretions that require frequent suctioning. O2 sat 96% on RA with even unlabored respirations. [facility] staff at bedside at this time. . ja5 Chart Complete MTDD
== END 2016-08-22 13:27 | disposition home or self-care (01) ==
LOC: M ED 08:47
DX: Z43.1 Encounter for attention to gastrostomy (principal); G93.1 Anoxic brain damage, not elsewhere classified; J45.909 Unspecified asthma, uncomplicated; G40.909 Epilepsy, unspecified, not intractable, without status epilepticus; M81.8 Other osteoporosis without current pathological fracture; H54.0 Blindness, both eyes; Z79.01 Long term (current) use of anticoagulants; Z79.899 Other long term (current) drug therapy; Z88.1 Allergy status to other antibiotic agents; Z88.8 Allergy status to other drugs, medicaments and biological substances

== ENCOUNTER 2016-08-28 08:04 | Outpatient (CLI) | payer MEDICAID ==
[~2016-08-28 08:04] MED LIST changes: +ZOLEDRONIC ACID 5 MG in APPROPRIATE DILUENT 1 EA IV ONE
== END 2016-08-28 09:45 | disposition home or self-care (01) ==
LOC: M INFU 08:04
PROVIDERS: ATTEND Nurse Practitioner Family
DX: M81.0 Age-related osteoporosis without current pathological fracture (principal); Z79.899 Other long term (current) drug therapy; Z88.8 Allergy status to other drugs, medicaments and biological substances; Z88.7 Allergy status to serum and vaccine; Z88.1 Allergy status to other antibiotic agents; Z88.0 Allergy status to penicillin
CPT/HCPCS: 96365; J3489

== ENCOUNTER 2016-09-03 09:32 | Emergency (ER) | payer MEDICAID ==
[~2016-09-03] VITALS: Ht 144.8 cm; Wt 68.3 kg
[~2016-09-03 09:32] MED LIST changes: -ZOLEDRONIC ACID 5 MG in APPROPRIATE DILUENT 1 EA IV ONE
--- NOTE | 2016-09-03 11:54 | REP ---
Right TIB-fib series: Two views. History: Trauma. Findings: Two views of the right tibia and fibula demonstrate marked diffuse osteoporosis. There is a predominantly sclerotic lesion in the proximal tibia 6.1 cm x 1.8 cm x 1.5 cm in diameter compatible with non-ossifying fibroma or an area of fibrous dysplasia. There are fractures of the distal tibia and distal fibula just above the ankle in the metaphyseal zone. These appear to show some healing periosteal reaction change suggesting subacute injury. There is overlying soft tissue swelling. There is diffuse soft tissue swelling about the knee. No proximal acute fracture is seen. Impression: Healing fractures of the distal tibia and fibula in the distal metaphyseal zone. 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 Diffuse osteoporosis. Some diffuse swelling. Diffuse skeletal muscle atrophy. Findings suggest denervation myopathy. Signed by Tra Harding MD 09/03/2016 02:48 P
--- NOTE | 2016-09-03 11:54 | REP ---
Left foot series: Four views. History: Trauma. Findings: There is profound diffuse osteoporosis. No acute fracture is seen. Some diffuse soft tissue swelling is noted. No soft tissue gas is seen. No opaque foreign body noted. Impression: Marked diffuse osteoporosis. Diffuse soft tissue swelling. No acute bony abnormality. Signed by Tra Harding MD 09/03/2016 02:48 P
[2016-09-03 12:42] VITALS: BP 124/77
== END 2016-09-03 12:57 | disposition home or self-care (01) ==
LOC: EDBD 09:32 → M ED 12:00
DX: S90.32XA Contusion of left foot, initial encounter (principal); S80.11XA Contusion of right lower leg, initial encounter; X58.XXXA Exposure to other specified factors, initial encounter; Y92.018 Other place in single-family (private) house as the place of occurrence of the external cause; Y93.89 Activity, other specified; Y99.8 Other external cause status; F79 Unspecified intellectual disabilities; K21.9 Gastro-esophageal reflux disease without esophagitis; G80.9 Cerebral palsy, unspecified; Z79.899 Other long term (current) drug therapy; Z79.01 Long term (current) use of anticoagulants; Z88.0 Allergy status to penicillin; Z88.1 Allergy status to other antibiotic agents; Z88.7 Allergy status to serum and vaccine; Z88.8 Allergy status to other drugs, medicaments and biological substances; Z91.018 Allergy to other foods

== ENCOUNTER → 2016-09-09 | Outpatient (CLI) | payer MEDICAID ==
[~2016-09-09] MED LIST changes: +ISOVUE-300 61% 50ML VIAL (Q9967) As Ordered ONE; +LIDOCAINE 2% MDV 20 ML VIAL As Ordered ONE
--- NOTE | 2016-09-09 17:31 | REPKIM ---
CLINICAL HISTORY: Patient has a long-term gastrojejunostomy feeding tube. The existing GJ tube needs to be changed for routine maintenance. The GJ tube was last changed in April 2016. PROCEDURE PERFORMED: Gastrojejunostomy Feeding Tube Change INTERVENTIONALIST: Tenisha Calloway MD CONSENT: The risks, benefits and alternatives to the procedure were explained to the patients mother and informed phone consent was obtained. EBL: None CONTRAST: 32 mL Isovue 300 DEVICE USED: 22F SUSAN Gastrojejunostomy Tube Lot#[id number] FLUORO TIME: 0.8 minutes PROCEDURE/FINDINGS: The patient was brought to the interventional radiology suite where a timeout procedure was performed. Contrast injection showed the feeding tube is patent in a satisfactory course and position. A guidewire was advanced through the jejunal port into the small bowel. The existing GJ tube was removed in its entirety. A new 22-Bengali [SUSAN] gastrojejunostomy feeding tube was then advanced over the guidewire. The retention balloon was inflated in the gastric lumen with approximately 9 mL dilute contrast/saline and retention disc was snugly secured to the abdominal wall. Contrast was injected into both the gastric and jejunal ports to confirm satisfactory course and position. Post procedure radiograph shows the tip of the feeding tube in the proximal jejunum. The patient tolerated the procedure well with no immediate complications. This procedure was performed using fluoroscopy. Dr. Calloway was present. IMPRESSION: Successful 22F SUSAN gastrojejunostomy feeding tube replacement as discussed above. Plan: The new GJ feeding tube is ready for use. Flush the jejunal feeding port with 50mL water every 6 hours during continuous feeding, before and after every intermittent or bolus feeding, or at least every 8 hours if the tube is not being used. When flushing a tube, use water and a 30cc-60cc plunger syringe. Please give medications via the gastric port. The gastric port should also be flushed with 40-50mL water before and after administration of medications and after checking for stomach residuals. cc: MD Yuki Rice NP MTDD
== END | disposition home or self-care (01) ==
LOC: M IRPRO 10:52
DX: Z43.1 Encounter for attention to gastrostomy (principal); J69.0 Pneumonitis due to inhalation of food and vomit
CPT/HCPCS: 49452; C1729; C1769; C1887; Q9967

== ENCOUNTER 2016-11-26 12:25 | Emergency (ER) | payer MEDICAID ==
[~2016-11-26] VITALS: Ht 144.8 cm; Wt 67.6 kg
[~2016-11-26 12:25] MED LIST changes: -COLA100C GT; +COLA100C3 GT; -ISOVUE-300 61% 50ML VIAL (Q9967) As Ordered ONE; -LIDOCAINE 2% MDV 20 ML VIAL As Ordered ONE
[2016-11-26] MEDS ORDERED: KEPP1SOL PO (12:53)
--- NOTE | 2016-11-26 14:02 | REP ---
Clinical: Acute swelling of the left lower extremity. Technique: AP, lateral, bilateral oblique views of the left knee. Comparison: 07/13/2016. Findings: Significant post traumatic degenerative changes and gracile appearance to the visualized femur and tibia / fibula are similar to prior examinations no evidence for acute fracture or dislocation. Surrounding soft tissues without obvious swelling or effusion. Impression: Significant arthritic and post traumatic degenerative changes to the knee along with osteopenia and gracile appearance to the bones. No obvious acute fracture, swelling or effusion identified. Signed by Mac Montes MD 11/26/2016 01:54 P
[2016-11-26 14:41] VITALS: BP 135/93
== END 2016-11-26 17:25 | disposition home or self-care (01) ==
LOC: EDBD 12:25 → M ED 13:51
DX: M21.162 Varus deformity, not elsewhere classified, left knee (principal); M17.12 Unilateral primary osteoarthritis, left knee; Z87.81 Personal history of (healed) traumatic fracture; M85.88 Other specified disorders of bone density and structure, other site; G93.1 Anoxic brain damage, not elsewhere classified; F79 Unspecified intellectual disabilities; G82.50 Quadriplegia, unspecified; R56.9 Unspecified convulsions; Z93.1 Gastrostomy status; Z79.899 Other long term (current) drug therapy; Z88.0 Allergy status to penicillin; Z88.7 Allergy status to serum and vaccine; Z88.8 Allergy status to other drugs, medicaments and biological substances; Z91.018 Allergy to other foods

== ENCOUNTER → 2016-11-28 | Outpatient (REF) | payer MEDICAID ==
[~2016-11-28] MED LIST changes: +KEPP1SOL PO
[2016-11-28 10:07] LABS: TRIPLE PHOSPHATE CRYSTALS SMALL
== END ==
LOC: M SFHCPLAZ 09:27
PROVIDERS: ATTEND Nurse Practitioner Family
DX: N39.0 Urinary tract infection, site not specified (principal)

== ENCOUNTER → 2016-12-05 | Outpatient (CLI) | payer MEDICAID ==
[~2016-12-05] MED LIST changes: +ISOVUE-300 61% 50ML VIAL (Q9967) As Ordered ONE; +SODIUM BICARBONATE 4 % INJ 2.4MEQ 5 ML VIAL (THIS HAS A PRESERVATIVE) As Ordered ONE
--- NOTE | 2016-12-05 11:41 | REPKIM ---
CLINICAL HISTORY: Patient has a long-term gastrojejunostomy feeding tube. The jejunal port of the existing GJ tube is clogged. PROCEDURE PERFORMED: Gastrojejunostomy Feeding Tube Change INTERVENTIONALIST: Tenisha Calloway MD CONSENT: The risks, benefits and alternatives to the procedure were explained to the patients mother and informed phone consent was obtained and witnessed. EBL: None CONTRAST: 30 mL Isovue 300 DEVICE USED: 22F SUSAN Gastrojejunostomy Tube Lot#[id number] FLUORO TIME: 0.8 minutes PROCEDURE/FINDINGS: The patient was brought to the interventional radiology suite where a timeout procedure was performed. The existing J port was confirmed to be clogged with feeding material. A guidewire was advanced through the jejunal port into the small bowel. The existing GJ tube was removed in its entirety. A new 22-Botswanan [ SUSAN] gastrojejunostomy feeding tube was then advanced over the guidewire. The retention balloon was inflated in the gastric lumen with approximately 10 mL dilute contrast/saline and retention disc was snugly secured to the abdominal wall. Contrast was injected into both the gastric and jejunal ports to confirm satisfactory course and position. Post procedure radiograph shows the tip of the feeding tube in the proximal jejunum. The patient tolerated the procedure well with no immediate complications. This procedure was performed using fluoroscopy. Dr. Calloway was present. IMPRESSION: Successful 22F SUSAN gastrojejunostomy feeding tube replacement as discussed above. Plan: The new GJ feeding tube is ready for use. Flush the jejunal feeding port with 50mL water every 4-6 hours during continuous feeding, before and after every intermittent or bolus feeding, or at least every 8 hours if the tube is not being used. When flushing a tube, use water and a 30cc-60cc plunger syringe. Please give medications via the gastric port. The gastric port should also be flushed with 40-50mL water before and after administration of medications and after checking for stomach residuals. cc: MD Yuki Rice NP MTDD
== END | disposition home or self-care (01) ==
LOC: M IRPRO 08:25
DX: K94.23 Gastrostomy malfunction (principal)
CPT/HCPCS: 49452; C1729; C1769; C1887; Q9967

== ENCOUNTER → 2017-01-09 | Outpatient (CLI) | payer MEDICAID ==
[~2017-01-09] MED LIST changes: -AVEL1TAB PO; +AVEL1TAB3 PO; +BENZ10LI12 EXT; +CLIN150C14 GT; -CLIN1CAP5 GT; -COLA100C3 GT; +COLA100C5 GT; +DOXY25SU PO; -ISOVUE-300 61% 50ML VIAL (Q9967) As Ordered ONE; +LEVA1TAB2 GT; -LEVA500T GT; +LEVA750T7 GT; -MINO100C GT; +MINO100C4 GT; -NYST100024 TOP; +NYST1POW9 TOP; -SODIUM BICARBONATE 4 % INJ 2.4MEQ 5 ML VIAL (THIS HAS A PRESERVATIVE) As Ordered ONE; +VITA400D GT; +ZYRT10TA2 GT
[2017-01-13 00:07] LABS: LACOSAMIDE LEVEL 1.7 ug/mL (5.0-10.0)
== END ==
LOC: M LAB 09:45
PROVIDERS: ATTEND Physician Assistant Medical
DX: R56.9 Unspecified convulsions (principal)

== ENCOUNTER → 2017-01-09 | Outpatient (CLI) | payer MEDICAID ==
[2017-01-09 10:40] LABS: BASO % 0.5 % (0.0-1.0); EOS # 0.1 K/mm3 (0.0-0.50); EOS % 2.6 % (0.0-3.0); LARGE UNSTAINED CELL # 0.2 K/mm3 (0.0-0.4); LARGE UNSTAINED CELL % 3.2 % (0.0-4.0); LYMPH # 1.5 K/mm3 (1.5-4.5); LYMPH % 28.1 % (24.0-44.0); MEAN CORPUSCULAR HEMOGLOBIN 34.3 pg (27.0-33.0); MEAN CORPUSCULAR HGB CONC 33.6 g/dl (32.0-36.5); MEAN CORPUSCULAR VOLUME 102.1 fl (80.0-96.0); MONO # 0.3 K/mm3 (0.0-0.8); MONO % 6.2 % (0.0-5.0); NEUTROPHILS # 3.1 K/mm3 (1.8-7.7); NEUTROPHILS % 59.3 % (36.0-66.0); PLATELET COUNT, AUTOMATED 211 k/mm3 (150-450); RED CELL DISTRIBUTION WIDTH 15.7 % (11.5-14.5); WHITE BLOOD COUNT 5.2 K/mm3 (4.0-10.0)
[2017-01-09 11:09] LABS: ALBUMIN 3.4 GM/DL (3.2-5.2); ALBUMIN/GLOBULIN RATIO 0.83 (1.00-1.93); ALKALINE PHOSPHATASE 301 U/L (45-117); ALT/SGPT 104 U/L (12-78); ANION GAP 8 MEQ/L (8-16); AST/SGOT 107 U/L (15-37); BILIRUBIN,TOTAL 0.4 MG/DL (0.2-1.0); BLOOD UREA NITROGEN 25 MG/DL (7-18); CALCIUM LEVEL 9.2 MG/DL (8.5-10.1); CARBON DIOXIDE LEVEL 29 MEQ/L (21-32); CHLORIDE LEVEL 106 MEQ/L (98-107); CREATININE FOR GFR 0.39 MG/DL (0.55-1.02); GLOMERULAR FILTRATION RATE > 60.0 (>60); GLUCOSE, FASTING 94 MG/DL (70-105); POTASSIUM SERUM 4.3 MEQ/L (3.5-5.1); SODIUM LEVEL 143 MEQ/L (136-145); TOTAL PROTEIN 7.5 GM/DL (6.4-8.2)
[2017-01-13 14:14] LABS: VITAMIN D 1,25 DIHYDROXY 42.5 pg/mL (19.9-79.3)
== END ==
LOC: M LAB 09:41
PROVIDERS: ATTEND Nurse Practitioner Family
DX: E55.9 Vitamin D deficiency, unspecified (principal); M81.8 Other osteoporosis without current pathological fracture

== ENCOUNTER → 2017-02-17 | Outpatient (REF) | payer MEDICAID ==
[2017-02-17 13:54] LABS: ALBUMIN 3.4 GM/DL (3.2-5.2); ALBUMIN/GLOBULIN RATIO 0.85 (1.00-1.93); BILIRUBIN,DIRECT 0.2 MG/DL (0.0-0.2); BILIRUBIN,TOTAL 0.5 MG/DL (0.2-1.0); TOTAL PROTEIN 7.4 GM/DL (6.4-8.2)
== END ==
LOC: M SFHCPLAZ 10:28
PROVIDERS: ATTEND Family Medicine
DX: R79.89 Other specified abnormal findings of blood chemistry (principal); E55.9 Vitamin D deficiency, unspecified

== ENCOUNTER → 2017-02-17 | Outpatient (REF) | payer MEDICAID | LOC: M LABDRAWP 13:09 | PROVIDERS: ATTEND Physician Assistant Medical | DX: G40.909 Epilepsy, unspecified, not intractable, without status epilepticus (principal) ==

== ENCOUNTER → 2017-05-19 | Outpatient (CLI) | payer MEDICAID ==
[2017-05-19 13:14] LABS: ALBUMIN 3.3 GM/DL (3.2-5.2); ALBUMIN/GLOBULIN RATIO 0.87 (1.00-1.93); ALKALINE PHOSPHATASE 281 U/L (45-117); ALT/SGPT 106 U/L (12-78); ANION GAP 7 MEQ/L (8-16); AST/SGOT 62 U/L (7-37); BILIRUBIN,TOTAL 0.3 MG/DL (0.2-1.0); BLOOD UREA NITROGEN 30 MG/DL (7-18); CALCIUM LEVEL 9.9 MG/DL (8.5-10.1); CARBON DIOXIDE LEVEL 31 MEQ/L (21-32); CHLORIDE LEVEL 104 MEQ/L (98-107); CREATININE FOR GFR 0.41 MG/DL (0.55-1.02); GLOMERULAR FILTRATION RATE > 60.0 (>60); GLUCOSE, FASTING 103 MG/DL (70-105); POTASSIUM SERUM 4.1 MEQ/L (3.5-5.1); SODIUM LEVEL 142 MEQ/L (136-145); TOTAL PROTEIN 7.1 GM/DL (6.4-8.2)
== END ==
LOC: M LAB 11:46
PROVIDERS: ATTEND Nurse Practitioner Family
DX: R79.89 Other specified abnormal findings of blood chemistry (principal)

== ENCOUNTER → 2017-05-22 | Outpatient (REF) | payer MEDICAID ==
[2017-05-22 16:07] LABS: BASO % 0.3 % (0.0-1.0); EOS # 0.2 10^3/uL (0.0-0.50); EOS % 4.9 % (0.0-3.0); LYMPH # 1.4 10^3/uL (1.5-4.5); LYMPH % 45.6 % (24.0-44.0); MEAN CORPUSCULAR HEMOGLOBIN 33.6 pg (27.0-33.0); MEAN CORPUSCULAR HGB CONC 32.5 g/dl (32.0-36.5); MEAN CORPUSCULAR VOLUME 103.3 fl (80.0-96.0); MONO # 0.5 10^3/uL (0.0-0.8); MONO % 15.5 % (0.0-5.0); NEUTROPHILS % 33.7 % (36.0-66.0); PLATELET COUNT, AUTOMATED 258 10^3/uL (150-450); WHITE BLOOD COUNT 3.1 10^3/uL (4.0-10.0)
[2017-05-22 16:25] LABS: ALBUMIN 3.3 GM/DL (3.2-5.2); ALBUMIN/GLOBULIN RATIO 0.87 (1.00-1.93); ALKALINE PHOSPHATASE 272 U/L (45-117); ALT/SGPT 80 U/L (12-78); ANION GAP 6 MEQ/L (8-16); AST/SGOT 47 U/L (7-37); BILIRUBIN,TOTAL 0.3 MG/DL (0.2-1.0); BLOOD UREA NITROGEN 28 MG/DL (7-18); CALCIUM LEVEL 9.6 MG/DL (8.5-10.1); CARBON DIOXIDE LEVEL 32 MEQ/L (21-32); CHLORIDE LEVEL 104 MEQ/L (98-107); CREATININE FOR GFR 0.43 MG/DL (0.55-1.02); GLOMERULAR FILTRATION RATE > 60.0 (>60); GLUCOSE, FASTING 89 MG/DL (70-105); POTASSIUM SERUM 4.3 MEQ/L (3.5-5.1); SODIUM LEVEL 142 MEQ/L (136-145); TOTAL PROTEIN 7.1 GM/DL (6.4-8.2)
== END ==
LOC: M SFHCPLAZ 14:34
PROVIDERS: ATTEND Physician Assistant Medical
DX: R68.0 Hypothermia, not associated with low environmental temperature (principal); K59.00 Constipation, unspecified

== ENCOUNTER → 2017-05-22 | Outpatient (CLI) | payer MEDICAID ==
--- NOTE | 2017-05-22 16:51 | REP ---
Clinical: Constipation. Technique: Two supine views of the abdomen and pelvis. Findings: Moderately distended loops of small large bowel may reflect ileus. Gastrostomy tube identified. No obvious free air. Clinical correlation is recommended. Impression: Moderately distended loops of small large bowel suggest ileus and possible constipation. No definite bowel obstruction pattern or free air. Signed by Mac Montes MD 05/22/2017 04:43 P
== END ==
LOC: M RAD 16:01
PROVIDERS: ATTEND Physician Assistant Medical
DX: K59.00 Constipation, unspecified (principal)

== ENCOUNTER → 2017-06-09 | Outpatient (REF) | payer MEDICAID ==
[2017-06-12 14:14] LABS: LACOSAMIDE LEVEL 5.2 ug/mL (5.0-10.0)
== END ==
LOC: M LABNEURO 17:05
PROVIDERS: ATTEND Physician Assistant Medical
DX: R56.9 Unspecified convulsions (principal)

== ENCOUNTER 2017-07-09 20:55 | Emergency (ER) | payer MEDICAID ==
[2017-07-09 23:31] LABS: BASO % 0.4 % (0.0-1.0); EOS # 0.3 10^3/uL (0.0-0.50); EOS % 6.4 % (0.0-3.0); HEMATOCRIT 37.1 % (36.0-47.0); HEMOGLOBIN 12.1 g/dl (12.0-16.0); IMMATURE GRANULOCYTE % 0.2 % (0-0); LYMPH # 2.4 10^3/uL (1.5-4.5); LYMPH % 50.3 % (24.0-44.0); MEAN CORPUSCULAR HEMOGLOBIN 33.5 pg (27.0-33.0); MEAN CORPUSCULAR HGB CONC 32.6 g/dl (32.0-36.5); MEAN CORPUSCULAR VOLUME 102.8 fl (80.0-96.0); MONO # 0.8 10^3/uL (0.0-0.8); MONO % 15.7 % (0.0-5.0); NEUTROPHILS # 1.3 10^3/uL (1.8-7.7); PLATELET COUNT, AUTOMATED 207 10^3/uL (150-450); RED BLOOD COUNT 3.61 10^6/uL (4.00-5.40); RED CELL DISTRIBUTION WIDTH 16.2 % (11.5-14.5); WHITE BLOOD COUNT 4.8 10^3/uL (4.0-10.0)
[2017-07-09 23:43] LABS: D-DIMER QUANT 942.1 ng/ml (<500)
[2017-07-10 00:03] LABS: ANION GAP 6 MEQ/L (8-16); BLOOD UREA NITROGEN 30 MG/DL (7-18); CARBON DIOXIDE LEVEL 31 MEQ/L (21-32); CHLORIDE LEVEL 106 MEQ/L (98-107); CREATININE FOR GFR 0.41 MG/DL (0.55-1.02); GLOMERULAR FILTRATION RATE > 60.0 (>60); GLUCOSE, FASTING 93 MG/DL (70-105); POTASSIUM SERUM 3.2 MEQ/L (3.5-5.1); SODIUM LEVEL 143 MEQ/L (136-145)
[2017-07-10] MEDS: POTASSIUM CHLORIDE 10% LIQ 20 MEQ/15 ML UDC PO (00:30)
== END 2017-07-10 00:47 | disposition home or self-care (01) ==
LOC: M ED 07-10 00:47
DX: E87.6 Hypokalemia (principal); G93.1 Anoxic brain damage, not elsewhere classified; F89 Unspecified disorder of psychological development; G40.909 Epilepsy, unspecified, not intractable, without status epilepticus; R94.5 Abnormal results of liver function studies; Z79.899 Other long term (current) drug therapy; Z88.0 Allergy status to penicillin; Z88.8 Allergy status to other drugs, medicaments and biological substances; Z88.7 Allergy status to serum and vaccine; Z91.018 Allergy to other foods
CPT/HCPCS: 71045

== ENCOUNTER → 2017-07-16 | Outpatient (REF) | payer MEDICAID ==
[2017-07-16 14:45] LABS: ALBUMIN 3.6 GM/DL (3.2-5.2); ALBUMIN/GLOBULIN RATIO 0.82 (1.00-1.93); ALKALINE PHOSPHATASE 260 U/L (45-117); ALT/SGPT 86 U/L (12-78); ANION GAP 9 MEQ/L (8-16); AST/SGOT 71 U/L (7-37); BILIRUBIN,TOTAL 0.4 MG/DL (0.2-1.0); BLOOD UREA NITROGEN 28 MG/DL (7-18); CALCIUM LEVEL 9.8 MG/DL (8.5-10.1); CARBON DIOXIDE LEVEL 29 MEQ/L (21-32); CHLORIDE LEVEL 105 MEQ/L (98-107); CREATININE FOR GFR 0.48 MG/DL (0.55-1.02); GLOMERULAR FILTRATION RATE > 60.0 (>60); GLUCOSE, FASTING 93 MG/DL (70-105); POTASSIUM SERUM 4.2 MEQ/L (3.5-5.1); SODIUM LEVEL 143 MEQ/L (136-145)
[2017-07-19 08:07] LABS: LEVETIRACETAM (KEPPRA) 46.9 ug/mL (10.0-40.0)
== END ==
LOC: M SFHCPLAZ 12:16
DX: E87.6 Hypokalemia (principal); G40.804 Other epilepsy, intractable, without status epilepticus

== ENCOUNTER 2017-09-16 08:56 | Outpatient (CLI) | payer MEDICAID ==
[2017-09-16] MEDS: ZOLEDRONIC ACID 5 MG in APPROPRIATE DILUENT 1 EA IV (09:30)
== END 2017-09-16 10:15 | disposition home or self-care (01) ==
LOC: M INFU 08:56
DX: M81.8 Other osteoporosis without current pathological fracture (principal); K21.9 Gastro-esophageal reflux disease without esophagitis; Z79.899 Other long term (current) drug therapy; Z88.8 Allergy status to other drugs, medicaments and biological substances; Z91.018 Allergy to other foods
CPT/HCPCS: J3489

== ENCOUNTER → 2017-12-21 | Outpatient (REF) | payer MEDICAID ==
[2017-12-23 14:12] LABS: LACOSAMIDE LEVEL 7.6 ug/mL (5.0-10.0)
[2017-12-23 14:12] LABS: LEVETIRACETAM (KEPPRA) 37.1 ug/mL (10.0-40.0)
== END ==
LOC: M LABDRAWP 13:37
DX: G40.909 Epilepsy, unspecified, not intractable, without status epilepticus (principal)

== ENCOUNTER → 2017-12-21 | Outpatient (REF) | payer MEDICAID ==
[2017-12-21 14:35] LABS: ALBUMIN 3.6 GM/DL (3.2-5.2); ALBUMIN/GLOBULIN RATIO 0.78 (1.00-1.93); ALKALINE PHOSPHATASE 228 U/L (45-117); ALT/SGPT 58 U/L (12-78); ANION GAP 12 MEQ/L (8-16); AST/SGOT 43 U/L (7-37); BILIRUBIN,TOTAL 0.3 MG/DL (0.2-1.0); BLOOD UREA NITROGEN 31 MG/DL (7-18); CALCIUM LEVEL 9.9 MG/DL (8.5-10.1); CARBON DIOXIDE LEVEL 26 MEQ/L (21-32); CHLORIDE LEVEL 105 MEQ/L (98-107); CREATININE FOR GFR 0.58 MG/DL (0.55-1.30); GLOMERULAR FILTRATION RATE > 60.0 (>60); GLUCOSE, FASTING 96 MG/DL (70-100); POTASSIUM SERUM 4.3 MEQ/L (3.5-5.1); SODIUM LEVEL 143 MEQ/L (136-145); TOTAL PROTEIN 8.2 GM/DL (6.4-8.2)
== END ==
LOC: M SFHCPLAZ 10:29
DX: M81.8 Other osteoporosis without current pathological fracture (principal); R94.5 Abnormal results of liver function studies

== ENCOUNTER 2017-12-27 06:38 | Observation (INO) | payer MEDICAID ==
[2017-12-27 07:13] LABS: ABG BASE EXCESS 5.9 (-2.0-2.0); ABG O2 SATURATION 91.1 % (95.0-99.0); ABG PARTIAL PRESSURE CO2 41.7 mmHg (35.0-45.0); ABG PARTIAL PRESSURE O2 57.1 mmHg (75.0-100.0); ABG STANDARD HCO3 29.6 MEQ/L (22.0-26.0); ABG TOTAL CO2 31.3 MEQ/L (22.0-29.0); ABG pH (ARTERIAL) 7.475 UNITS (7.350-7.450)
[2017-12-27] MEDS: ACETAMINOPHEN 650 MG SUPP PR (07:18)
[2017-12-27 07:30] LABS: BASO % 0.2 % (0.0-1.0); EOS # 0.2 10^3/uL (0.0-0.50); EOS % 1.8 % (0.0-3.0); HEMATOCRIT 40.3 % (36.0-47.0); HEMOGLOBIN 13.7 g/dl (12.0-15.5); IMMATURE GRANULOCYTE % 0.2 % (0-3.0); LYMPH # 1.7 10^3/uL (1.5-4.5); LYMPH % 18.9 % (24.0-44.0); MEAN CORPUSCULAR HEMOGLOBIN 33.7 pg (27.0-33.0); MEAN CORPUSCULAR VOLUME 99.3 fl (80.0-96.0); MONO # 0.7 10^3/uL (0.0-0.8); MONO % 8.3 % (0.0-5.0); NEUTROPHILS # 6.3 10^3/uL (1.8-7.7); NEUTROPHILS % 70.6 % (36.0-66.0); PLATELET COUNT, AUTOMATED 257 10^3/uL (150-450); RED BLOOD COUNT 4.06 10^6/uL (4.00-5.40); RED CELL DISTRIBUTION WIDTH 17.4 % (11.5-14.5); WHITE BLOOD COUNT 8.9 10^3/uL (4.0-10.0)
[2017-12-27 08:02] LABS: APPEARANCE, URINE HAZY (CLEAR); BACTERIA, URINE AUTO 1+ (NEGATIVE); BILIRUBIN, URINE AUTO NEGATIVE (NEGATIVE); BLOOD, URINE BLOOD 3+ (NEGATIVE); CALCIUM OXALATE CRYSTALS SMALL; COLOR, URINE YELLOW (YELLOW); GLUCOSE, URINE (UA) AUTO NEGATIVE (NEGATIVE); KETONE, URINE AUTO NEGATIVE (NEGATIVE); LEUKOCYTE ESTERASE, URINE AUTO NEGATIVE (NEGATIVE); NITRITE, URINE AUTO NEGATIVE (NEGATIVE); PROTEIN, URINE AUTO 1+ mg/dL (NEGATIVE); RBC, URINE AUTO TNTC /HPF (0-3); SPECIFIC GRAVITY URINE AUTO 1.015 (1.002-1.035); SQUAMOUS EPITHELIAL CELL UR AU 1 /HPF (0-6); TRANSITIONAL EPITHELIAL AUTO 2 /HPF; UROBILINOGEN, URINE AUTO 0.2 mg/dL (0.0-2.0); WBC, URINE AUTO TNTC /HPF (0-3)
[2017-12-27 08:27] LABS: ALBUMIN 3.2 GM/DL (3.2-5.2); ALBUMIN/GLOBULIN RATIO 0.68 (1.00-1.93); ALKALINE PHOSPHATASE 226 U/L (45-117); ALT/SGPT 60 U/L (12-78); ANION GAP 9 MEQ/L (8-16); AST/SGOT 50 U/L (7-37); BILIRUBIN,DIRECT 0.2 MG/DL (0.0-0.2); BILIRUBIN,TOTAL 0.6 MG/DL (0.2-1.0); BLOOD UREA NITROGEN 32 MG/DL (7-18); CALCIUM LEVEL 8.6 MG/DL (8.5-10.1); CARBON DIOXIDE LEVEL 29 MEQ/L (21-32); CHLORIDE LEVEL 106 MEQ/L (98-107); CREATININE FOR GFR 0.64 MG/DL (0.55-1.30); GLOMERULAR FILTRATION RATE > 60.0 (>60); GLUCOSE, FASTING 115 MG/DL (70-100); POTASSIUM SERUM 3.8 MEQ/L (3.5-5.1); SODIUM LEVEL 144 MEQ/L (136-145); TOTAL PROTEIN 7.9 GM/DL (6.4-8.2)
[2017-12-27 08:28] LABS: LACTIC ACID SEPSIS PROTOCOL 1.1 MMOL/L (0.4-2.0)
[2017-12-27] MEDS: ALBUTEROL SULFATE 2.5 MG/0.5 ML INH NEB SOLN NEB (08:31)
[2017-12-27] MEDS: NS 500 ML IV ×2 (08:45→10:52)
[2017-12-27] MEDS: cefTRIAXone SOD 2 GM in D5W MINI-BAG PLUS 50 ML IV (10:52)
[2017-12-27] MEDS ORDERED: BISACODYL 10 MG SUPP PR (13:00)
[2017-12-27] MEDS ORDERED: ACETAMINOPHEN 650 MG SUPP PR (13:00)
[2017-12-27] MEDS ORDERED: IPRATROPIUM 0.02% SOLN 0.5MG/2.5 ML NEB NEB (13:00)
[2017-12-27] MEDS ORDERED: LEVALBUTEROL 1.25 MG/0.5 ML CONCENTRATE NEB NEB (13:00)
[2017-12-27] MEDS ORDERED: guaiFENesin SYRUP 200 MG/10 ML UDC GT (13:00)
[2017-12-27] MEDS ORDERED: LACOSAMIDE 50 MG TAB (VIMPAT) PO (14:00)
[2017-12-27] MEDS: D5W/0.45% SODIUM CHLORIDE 1,000 ML IV (14:13)
[2017-12-27] MEDS ORDERED: PILL CRUSHER/CUTTER 1 EACH XX (14:15)
[2017-12-27] MEDS: IPRATROPIUM 0.02% SOLN 0.5MG/2.5 ML NEB NEB ×2 (15:09→20:06)
[2017-12-27] MEDS: LEVALBUTEROL 1.25 MG/0.5 ML CONCENTRATE NEB NEB ×2 (15:09→20:06)
[2017-12-27] MEDS: CYPROHEPTADINE 4 MG TAB GT ×2 (17:26→20:31)
[2017-12-27] MEDS: MIRALAX *UNIT DOSE* 17GM PACKET GT (20:31)
[2017-12-27] MEDS: raNITIdine SYRUP 150 MG/10 ML UDC GT (20:31)
[2017-12-27] MEDS: levETIRAcetam ORAL SOLUTION 500 MG/5 ML UDC GT (20:31)
[2017-12-27] MEDS: LACOSAMIDE 50 MG TAB (VIMPAT) GT (20:31)
[2017-12-27] MEDS: CETIRIZINE (ZyrTEC) 5 MG/5 ML UDC DYE FREE GT (20:31)
[2017-12-27] MEDS: RIVAROXABAN 20 MG TAB (XARELTO) GT (20:38)
[2017-12-27] MEDS: CLORAZEPATE 3.75 MG TAB GT (20:38)
[2017-12-28] MEDS: IPRATROPIUM 0.02% SOLN 0.5MG/2.5 ML NEB NEB ×2 (02:38→09:04)
[2017-12-28] MEDS: LEVALBUTEROL 1.25 MG/0.5 ML CONCENTRATE NEB NEB ×2 (02:38→09:04)
[2017-12-28 06:12] LABS: BASO % 0.3 % (0.0-1.0); EOS # 0.2 10^3/uL (0.0-0.50); EOS % 3.1 % (0.0-3.0); IMMATURE GRANULOCYTE % 0.3 % (0-3.0); LYMPH % 31.6 % (24.0-44.0); MEAN CORPUSCULAR HEMOGLOBIN 33.9 pg (27.0-33.0); MEAN CORPUSCULAR HGB CONC 33.8 g/dl (32.0-36.5); MEAN CORPUSCULAR VOLUME 100.3 fl (80.0-96.0); MONO # 0.7 10^3/uL (0.0-0.8); MONO % 11.6 % (0.0-5.0); NEUTROPHILS # 3.4 10^3/uL (1.8-7.7); NEUTROPHILS % 53.1 % (36.0-66.0); PLATELET COUNT, AUTOMATED 192 10^3/uL (150-450); RED BLOOD COUNT 3.39 10^6/uL (4.00-5.40); RED CELL DISTRIBUTION WIDTH 17.2 % (11.5-14.5); WHITE BLOOD COUNT 6.4 10^3/uL (4.0-10.0)
[2017-12-28 06:32] LABS: ANION GAP 4 MEQ/L (8-16); BLOOD UREA NITROGEN 20 MG/DL (7-18); CALCIUM LEVEL 8.3 MG/DL (8.5-10.1); CARBON DIOXIDE LEVEL 30 MEQ/L (21-32); CHLORIDE LEVEL 110 MEQ/L (98-107); CREATININE FOR GFR 0.49 MG/DL (0.55-1.30); GLOMERULAR FILTRATION RATE > 60.0 (>60); GLUCOSE, FASTING 114 MG/DL (70-100); HEMOGLOBIN 11.5 g/dl (12.0-15.5); POTASSIUM SERUM 3.5 MEQ/L (3.5-5.1); SODIUM LEVEL 144 MEQ/L (136-145)
[2017-12-28] MEDS: CYPROHEPTADINE 4 MG TAB GT (09:18)
[2017-12-28] MEDS: levETIRAcetam ORAL SOLUTION 500 MG/5 ML UDC GT (09:18)
[2017-12-28] MEDS: raNITIdine SYRUP 150 MG/10 ML UDC GT (09:18)
[2017-12-28] MEDS: LACOSAMIDE 50 MG TAB (VIMPAT) GT (09:19)
[2017-12-28] MEDS: CLORAZEPATE 3.75 MG TAB GT (09:19)
[2017-12-28] MEDS ORDERED: cefTRIAXone SOD 1 GM in D5W MINI-BAG PLUS 50 ML IV (11:00)
[2017-12-29] MEDS ORDERED: SCOPOLAMINE 1MG TRANSDERMAL PATCH TOP (18:00)
== END 2017-12-28 13:23 | disposition home or self-care (01) ==
LOC: M ED 06:38 → M ED INP 12:55 → M MSPAV 15:47
DX: R50.9 Fever, unspecified (principal); N39.0 Urinary tract infection, site not specified; G80.0 Spastic quadriplegic cerebral palsy; Z87.440 Personal history of urinary (tract) infections; Z87.01 Personal history of pneumonia (recurrent); R68.0 Hypothermia, not associated with low environmental temperature; R06.2 Wheezing; M85.80 Other specified disorders of bone density and structure, unspecified site; G93.1 Anoxic brain damage, not elsewhere classified; G40.909 Epilepsy, unspecified, not intractable, without status epilepticus; R79.89 Other specified abnormal findings of blood chemistry; F73 Profound intellectual disabilities; Z93.1 Gastrostomy status; Z79.899 Other long term (current) drug therapy; Z79.2 Long term (current) use of antibiotics; Z79.01 Long term (current) use of anticoagulants; Z88.1 Allergy status to other antibiotic agents; Z88.8 Allergy status to other drugs, medicaments and biological substances; Z91.018 Allergy to other foods; Z88.7 Allergy status to serum and vaccine; Z88.0 Allergy status to penicillin
CPT/HCPCS: J0696

== ENCOUNTER → 2018-02-22 | Outpatient (CLI) | payer MEDICAID | LOC: M RAD 13:28 | DX: S42.401A Unspecified fracture of lower end of right humerus, initial encounter for closed fracture (principal); X58.XXXA Exposure to other specified factors, initial encounter; Y92.9 Unspecified place or not applicable | CPT/HCPCS: 73080 ==

== ENCOUNTER → 2018-04-19 | Outpatient (REF) | payer MEDICAID ==
[2018-04-19 16:07] LABS: ALBUMIN 3.4 GM/DL (3.2-5.2); ALBUMIN/GLOBULIN RATIO 0.76 (1.00-1.93); ALKALINE PHOSPHATASE 225 U/L (45-117); ALT/SGPT 81 U/L (12-78); ANION GAP 7 MEQ/L (8-16); AST/SGOT 68 U/L (7-37); BILIRUBIN,TOTAL 0.3 MG/DL (0.2-1.0); BLOOD UREA NITROGEN 25 MG/DL (7-18); CALCIUM LEVEL 9.3 MG/DL (8.5-10.1); CARBON DIOXIDE LEVEL 30 MEQ/L (21-32); CHLORIDE LEVEL 105 MEQ/L (98-107); CREATININE FOR GFR 0.52 MG/DL (0.55-1.30); GLOMERULAR FILTRATION RATE > 60.0 (>60); GLUCOSE, FASTING 91 MG/DL (70-100); POTASSIUM SERUM 4.1 MEQ/L (3.5-5.1); SODIUM LEVEL 142 MEQ/L (136-145); TOTAL PROTEIN 7.9 GM/DL (6.4-8.2)
[2018-04-19 16:14] LABS: PTH INTACT 33.2 PG/ML (18.5-88.0)
== END ==
LOC: M SFHCPLAZ 13:50
DX: R94.5 Abnormal results of liver function studies (principal); M81.8 Other osteoporosis without current pathological fracture

== ENCOUNTER 2018-06-13 11:41 | Emergency (ER) | payer MEDICAID | END 2018-06-13 13:10 | disposition home or self-care (01) | LOC: M ED 11:41 | DX: L02.413 Cutaneous abscess of right upper limb (principal); J45.909 Unspecified asthma, uncomplicated; G80.9 Cerebral palsy, unspecified; G31.9 Degenerative disease of nervous system, unspecified; K21.9 Gastro-esophageal reflux disease without esophagitis; N28.9 Disorder of kidney and ureter, unspecified; F41.9 Anxiety disorder, unspecified; F89 Unspecified disorder of psychological development; E55.9 Vitamin D deficiency, unspecified; H54.8 Legal blindness, as defined in USA; M85.9 Disorder of bone density and structure, unspecified; Z93.1 Gastrostomy status; Z88.0 Allergy status to penicillin; Z88.1 Allergy status to other antibiotic agents; Z88.7 Allergy status to serum and vaccine; Z88.8 Allergy status to other drugs, medicaments and biological substances; Z91.018 Allergy to other foods; Z79.899 Other long term (current) drug therapy | CPT/HCPCS: 99283 ==

== ENCOUNTER 2018-06-29 20:54 | Inpatient (IN) | payer MEDICAID ==
[~2018-06-29 20:54] MED LIST changes: +BACT800T5 GT; +BACT800T5 PO; +CEFU50TA PO; +HIBI4LIQ TOP; +MINO100C63 GT; -MINO1CAP GT; +MINO50CA3 GT; +ZYRT10CA5 GT; -ZYRT10TA2 GT
[2018-06-29 21:41] LABS: BASO % 0.2 % (0.0-1.0); EOS # 0.1 10^3/uL (0.0-0.50); EOS % 0.8 % (0.0-3.0); HEMATOCRIT 42.2 % (36.0-47.0); HEMOGLOBIN 13.4 g/dl (12.0-15.5); LYMPH % 8.4 % (24.0-44.0); MEAN CORPUSCULAR HEMOGLOBIN 33.4 pg (27.0-33.0); MEAN CORPUSCULAR HGB CONC 31.8 g/dl (32.0-36.5); MEAN CORPUSCULAR VOLUME 105.2 fl (80.0-96.0); MONO # 0.5 10^3/uL (0.0-0.8); MONO % 3.9 % (0.0-5.0); NEUTROPHILS % 86.4 % (36.0-66.0); PLATELET COUNT, AUTOMATED 221 10^3/uL (150-450); RED BLOOD COUNT 4.01 10^6/uL (4.00-5.40); WHITE BLOOD COUNT 11.6 10^3/uL (4.0-10.0)
[2018-06-29 21:55] LABS: BLOOD UREA NITROGEN 23 MG/DL (7-18); CALCIUM LEVEL 8.7 MG/DL (8.5-10.1); CARBON DIOXIDE LEVEL 25 MEQ/L (21-32); CHLORIDE LEVEL 106 MEQ/L (98-107); CREATININE FOR GFR 0.73 MG/DL (0.55-1.30); GLOMERULAR FILTRATION RATE > 60.0 (>60); GLUCOSE, FASTING 180 MG/DL (70-100); POTASSIUM SERUM 3.7 MEQ/L (3.5-5.1); SODIUM LEVEL 141 MEQ/L (136-145)
[2018-06-29 22:06] LABS: APPEARANCE, URINE CLEAR (CLEAR); BACTERIA, URINE AUTO NEGATIVE (NEGATIVE); BILIRUBIN, URINE AUTO NEGATIVE (NEGATIVE); BLOOD, URINE BLOOD NEGATIVE (NEGATIVE); COLOR, URINE YELLOW (YELLOW); GLUCOSE, URINE (UA) AUTO 1+ mg/dL (NEGATIVE); KETONE, URINE AUTO NEGATIVE (NEGATIVE); LEUKOCYTE ESTERASE, URINE AUTO NEGATIVE (NEGATIVE); NITRITE, URINE AUTO NEGATIVE (NEGATIVE); PROTEIN, URINE AUTO NEGATIVE (NEGATIVE); RBC, URINE AUTO 2 /HPF (0-3); SPECIFIC GRAVITY URINE AUTO 1.012 (1.002-1.035); SQUAMOUS EPITHELIAL CELL UR AU 0 /HPF (0-6); TRANSITIONAL EPITHELIAL AUTO <1 /HPF; UROBILINOGEN, URINE AUTO 0.2 mg/dL (0.0-2.0); WBC, URINE AUTO 1 /HPF (0-3)
[2018-06-29] MEDS ORDERED: CEFUROXIME SODIUM 1.5 GM in D5W MINI-BAG PLUS 50 ML IV ONE (22:30)
[2018-06-29] MEDS ORDERED: dexameTHASONE 20 MG/5 ML VIAL (J1100) IV ONE (22:30)
[2018-06-29] MEDS ORDERED: NS 1,000 ML IV ONE (22:30)
[2018-06-29] MEDS ORDERED: SCOPOLAMINE 1.5 MG TOP (22:31)
[2018-06-29] MEDS ORDERED: DOCU5LIQ PO (22:31)
[2018-06-29] MEDS ORDERED: cefTRIAXone SOD 2 GM in D5W MINI-BAG PLUS 50 ML IV SCH (23:15)
[2018-06-29] MEDS ORDERED: ACETAMINOPHEN TAB 650MG DOSE (2X325MG) PO PRN (23:15)
[2018-06-29] MEDS ORDERED: LEVALBUTEROL 1.25 MG/0.5 ML CONCENTRATE NEB INH PRN (23:30)
[2018-06-29] MEDS ORDERED: IPRATROPIUM 0.02% SOLN 0.5MG/2.5 ML NEB INH PRN (23:30)
[2018-06-29] MEDS ORDERED: BISACODYL 10 MG SUPP PR PRN (23:30)
[2018-06-29] MEDS ORDERED: DOCUSATE SOD LIQ 100MG/10ML UDC PO PRN (23:30)
[2018-06-29] MEDS ORDERED: LACOSAMIDE 50 MG TAB (VIMPAT) PO ONE (23:30)
[2018-06-29] MEDS ORDERED: guaiFENesin SYRUP 200 MG/10 ML UDC PO PRN (23:30)
[2018-06-29] MEDS ORDERED: NS 1,000 ML IV SCH (23:42)
[2018-06-29] MEDS ORDERED: ONDANSETRON 4MG/2ML VIAL (J2405) IV PRN (23:45)
[2018-06-30] VITALS (14 sets, daily range): BP systolic 86–112; BP diastolic 52–69; O2SAT 95–98
[2018-06-30 00:17] LABS: ABG BASE EXCESS 1.4 (-2.0-2.0); ABG HCO3 27.9 MEQ/L (22.0-26.0); ABG O2 SATURATION 97.8 % (95.0-99.0); ABG PARTIAL PRESSURE CO2 51.6 mmHg (35.0-45.0); ABG STANDARD HCO3 25.7 MEQ/L (22.0-26.0); ABG TOTAL CO2 29.5 MEQ/L (22.0-29.0); ABG pH (ARTERIAL) 7.351 UNITS (7.350-7.450)
[2018-06-30] MEDS ORDERED: DOCUSATE SOD LIQ 100MG/10ML UDC GT PRN (00:31)
[2018-06-30] MEDS ORDERED: ACETAMINOPHEN TAB 650MG DOSE (2X325MG) GT PRN (00:32)
[2018-06-30] MEDS: metroNIDAZOLE 500 MG in APPROPRIATE DILUENT 1 EA IV SCH ×3 (00:33→17:22)
[2018-06-30] MEDS ORDERED: guaiFENesin SYRUP 200 MG/10 ML UDC GT PRN (00:33)
--- NOTE | 2018-06-30 00:51 | HPEPDOC ---
[facility] Medical History & Physical Date of Admission Jun 30, 2018 Primary Care Physician: Efrain Lara MD Attending Physician: Liam Herrera MD History and Physical PRIMARY CARE PROVIDER: Dr. Efrain Lara ATTENDING: Dr. Maria G Gilbert CODE STATUS: DNR with limited medical interventions, see MOLST form CHIEF COMPLAINT: Hypoxia HISTORY OF PRESENT ILLNESS: History obtained through patients mother and [facility] aide. They report that the patient had been acting normally all day and was laughing/interactive. They did note possible vesicular breath sounds earlier in the day but state she had no fevers, chills, coughing, or other associated URI symptoms. On 06/29/18 at 7:30 PM she received her medications from staff, all IV and through her Gtube with no PO meds. At kay roximately 8:10 they came into the room and saw her blue in the face and having difficulty breathing so they proceeded to call the ambulance. The patient has a long history of multiple hospitalizations for aspiration pneumonia with her last hospitalization for this complaint occurring 05/2017. The patient is legally blind, non-verbal, and needs assistance with all of her activities of daily living. 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 Calloway (2017) SOCIAL HISTORY: No hx of tobacco use, recreational drug use. Parents are her legal guardians (Sylvie and Tra Rule can be reached at [phone]). Receives her diet through her G tube. FAMILY HISTORY: Both parents alive. Father has hx of dyslipidemia. Mother has hx of ulcerative colitis. ALLERGIES: Please see below. REVIEW OF SYSTEMS: Unobtainable secondary to patient mental status Caregivers note her only positive symptom are possible increased vesicular breath sounds earlier in the day. Deny any other changes including bowel, bladder habits, fevers, chills, productive cough. HOME MEDICATIONS: Please see below. PHYSICAL EXAMINATION: Vitals: (see below) General: No acute distress, laying comfortably in bed. HEENT: Normocephalic, atraumatic. Head is extended with mouth wide open, mucous membranes moist, no pharyngeal erythema or edema. Neck: No JVD or lymphadenopathy Cardiac: RRR, No murmurs Pulm: Clear to auscultation bilaterally. Breath sounds are rhonchorous and despite being high enough up on the chest wall it is easy to hear bowel sounds. No wheezing or crackles appreciated. Abd:Obese abdomen with Gtube present in RUQ. Ext: No edema or cyanosis. Pulses +2/4 in all 4 extremities. Skin: Normal skin turgor and temperature. LABORATORY DATA: See below. IMAGING: Chest X ray: no official read currently, but appears to MICROBIOLOGY: Please see below. ASSESSMENT/PLAN: #. Aspiration Pneumonia - Starting patient on Flagyl and Meropenem for aspiration pneumonia - Lactic acid of 5.0. Obtaining blood cultures x2, legionella and strep urine antigen. - Starting IV NS at 100 mls/hr - Patient has nebulizer treatments ordered as needed. Titrating oxygen requirements. - ABG shows normal pH, with mild pCO2 elevation and elevated oxygen levels, this is likely iatrogenically induced as she was previously on 15 liters non- rebreather (note she does not required oxygen at home) - Patient was admitted to ICU pending the need for possible bipap treatment as the ABG was cancelled prior to disposition. - Trial of vapotherm was ordered prior to ABG coming back, she does not meet vapotherm requirements based on ABG. But use as necessary. - Aspiration/swallow study ordered - Consider ordering further imaging pending patient improvement #. Hx of seizures - Continue home meds #.Feeding Tube - Patient is NPO pending swallow study evaluation. #.Allergic Rhinitis - Continue home meds #. GERD - Continue home meds and have patient elevate bed to at least 30 degrees when eating. DVT proph: Continue home Xarelto Disposition: Patient will be admitted to the ICU under Dr. Herrera's care sta rting tomorrow at 7AM. Vital Signs Vital Signs Date Time Temp Pulse Resp B/P (MAP) Pulse Ox O2 Delivery O2 Flow Rate FiO2 06/30/18 00:38 89 24 126/77 (93) 100 Nasal Cannula 5.0 06/29/18 21:25 96.2 Laboratory Data Labs 24H Laboratory Tests 2 06/29/18 21:12: Bedside Glucose (Misc Panel) 191H 06/29/18 21:19: Immature Granulocyte % (Auto) 0.3, White Blood Count 11.6H, Red Blood Count 4.01, Hemoglobin 13.4, Hematocrit 42.2, Mean Corpuscular Volume 105.2H, Mean Corpuscular Hemoglobin 33.4H, Mean Corpuscular Hemoglobin Concent 31.8L, Red Cell Distribution Width 15.3H, Platelet Count 221, Neutrophils (%) (Auto) 86.4H, Lymphocytes (%) (Auto) 8.4L, Monocytes (%) (Auto) 3.9, Eosinophils (%) (Auto) 0.8, Basophils (%) (Auto) 0.2, Neutrophils # (Auto) 10.0H, Lymphocytes # (Auto) 1.0L, Monocytes # (Auto) 0.5, Eosinophils # (Auto) 0.1, Basophils # (Auto) 0.0, Nucleated Red Blood Cells % (auto) 0.0, Anion Gap 10, Glomerular Filtration Rate > 60.0, Lactic Acid Level 5.0*H, Blood Urea Nitrogen 23H, Creatinine 0.73, Sodium Level 141, Potassium Level 3.7, Chloride Level 106, Carbon Dioxide Level 25, Calcium Level 8.7 06/29/18 21:55: Urine Appearance CLEAR, Urine Color YELLOW, Urine pH 6.0, Urine Specific [place] 1.012, Urine Protein NEGATIVE, Urine Glucose (UA) 1+H, Urine Ketones NEGATIVE, Urine Urobilinogen 0.2, Urine Bilirubin NEGATIVE, Urine Leukocyte Esterase NEGATIVE, Urine Blood NEGATIVE, Urine Nitrite NEGATIVE, Urine WBC (Auto) 1, Urine RBC (Auto) 2, Urine Hyaline Casts (Auto) 1, Urine Bacteria (Auto) NEGATIVE, Urine Squamous Epithelial Cells 0, Urine Transitional Epithelial Cells <1, Urine Sperm (Auto) 06/30/18 00:16: Blood Gas Bicarbonate Standard 25.7, Arterial Blood pH 7.351, Arterial Blood Partial Pressure CO2 51.6H, Arterial Blood Partial Pressure O2 105.0H, Arterial Blood Total CO2 29.5H, Arterial Blood HCO3 27.9H, Arterial Blood Base Excess 1.4, Arterial Blood Oxygen Saturation 97.8 CBC/BMP Laboratory Tests 06/29/18 21:19 Red Blood Count 4.01, Mean Corpuscular Volume 105.2 H, Mean Corpuscular Hemoglobin 33.4 H, Mean Corpuscular Hemoglobin Concent 31.8 L, Red Cell Distribution Width 15.3 H, Neutrophils (%) (Auto) 86.4 H, Lymphocytes (%) (Auto) 8.4 L, Monocytes (%) (Auto) 3.9, Eosinophils (%) (Auto) 0.8, Basophils (%) (Auto) 0.2, Neutrophils # (Auto) 10.0 H, Lymphocytes # (Auto) 1.0 L, Monocytes # (Auto) 0.5, Eosinophils # (Auto) 0.1, Basophils # (Auto) 0.0, Calcium Level 8.7 Microbiology Microbiology 06/29/18 Blood Culture, Received Pending 06/29/18 Urine Culture, Received Pending Home Medications Scheduled (Jevity 1.5 Cedric) 1 Liq Liq, 2 LIQ JT QPM (Benzoyl Peroxide Wash) 10 % Liq, 1 DOSE EXT BID APPLY TO FACE AND EARS (Vitamin D) 400 Unit/Ml Thom, 5 ML GT QHS (Hibiclens) 4 % Liq, 1 DOSE TOP QHS WASH BEHIND EARS, AND ARMPITS DAILY (Promod) 1 Liq Liq, 60 CC GT QHS Calcium Carbonate (Calcium Carbonate) 1,250 Mg/5 Ml Trena, 1,250 MG GT BID Cetirizine HCl (Zyrtec Allergy) 10 Mg Tab, 10 MG GT QHS Clindamycin Phosphate (Clindagel) 1 % Gel, 1 DOSE TOP BID TO FACE, UNDERARMS AND BEHIND EARS Clorazepate Dipotassium (Tranxene T) 7.5 Mg Tab, 7.5 MG GT BID CRUSHED: AM, HS Cyproheptadine HCl (Cyproheptadine HCl) 4 Mg Tab, 8 MG GT TID CRUSHED: AM, PM, HS Ipratropium Houstonia (Ipratropium Houstonia) 0.5 Mg/2.5 Ml Soln, 0.5 MG INH QID MAY MIX WITH LEVALBUTEROL Lacosamide (Vimpat) 10 Mg/Ml Caroline, 5 ML GT QAM Lacosamide (Vimpat) 10 Mg/Ml Caroline, 7.5 ML GT QHS Levalbuterol Hydrochloride (Levalbuterol HCl) 1.25 Mg/3 Ml Neb, 1.25 MG INH QID MAY MIX WITH IPRATROPIUM Levetiracetam (Keppra Oral Solution) 500 Mg/5 Ml Caroline, 500 MG GT BID Minocycline HCl (Minocycline HCl) 50 Mg Cap, 50 MG GT QHS Multivitamins Drops *[facility] STOCKED* (Poly--Caroline Drops *[facility] STOCKED*) 50 Ml Soln, 1 ML GT QHS Nystatin (Nystatin Powder) 100,000 Unit/Gm Pow, 1 DOSE TOP BID APPLIED TO GROIN AREA Polyethylene Glycol (Miralax) 1 Pow Pow, 17 GM GT QPM Ranitidine HCl (Ranitidine HCl) 150 Mg Tab, 1 TAB GT BID CRUSHED: AM, HS Rivaroxaban (Xarelto) 20 Mg Tab, 20 MG GT QHS CRUSH Wheat Dextrin (Benefiber) 1 Pow Pow, 1 POW GT TID AM, NOON, HS: MIXED WITH 60CC WATER [Scopolamine 1.5MG] , 1 PATCH TOP Q3RD ALTERNATES EARS WITH EACH PATCH EVERY 3RD NIGHT: BEHIND RIGHT EAR WAS LAST DOSE Scheduled PRN (Zaditor) 0.025 % Thom, 1 DROP OU BID PRN for ALLERGIES Bisacodyl (Dulcolax) 10 Mg Sup, 10 MG IA ASDIRECTED PRN for CONSTIPATION USE AT QHS ON DAY 5 WITH NO BM Docusate Sodium (Docusate Sodium) 50 Mg/5 Ml Liq, 150 MG PO ASDIRECTED PRN for C ONSTIPATION BID IF NO BM IN MORE THAN 2 DAYS. REPEAT IF NO BM MORE THAN 3 DAYS Guaifenesin (Mucinex Chest Congestion) 100 Mg/5 Ml Liq, 10 ML PO Q4H PRN for CONGESTION Ipratropium Houstonia (Ipratropium Houstonia) 0.5 Mg/2.5 Ml Soln, 0.5 MG INH Q2H PRN for SHORTNESS OF BREATH Levalbuterol Hydrochloride (Levalbuterol HCl) 1.25 Mg/3 Ml Neb, 1.25 MG INH Q2H PRN for SHORTNESS OF BREATH Allergies Coded Allergies: Clarithromycin (Verified Allergy, Intermediate, INCREASED TEGRETOL LEVEL, RASH, 06/29/18) Clavulanic Acid (Verified Allergy, Intermediate, RASH, 06/29/18) Corticotropin (Verified Allergy, Intermediate, RASH, 06/29/18) Lamotrigine (Verified Allergy, Intermediate, BLISTERS ON SKIN, RASH, 06/29/18) Penicillins (Verified Allergy, Intermediate, RASH, 06/29/18) Amoxicillin (Verified Allergy, Unknown, 06/29/18) Grapefruit (Verified Allergy, Unknown, 06/29/18) Haemophilus Influenza Vaccines (Verified Allergy, Unknown, 06/29/18) Tetanus Toxoid (Verified Allergy, Unknown, 06/29/18) GME ATTESTATION GME ATTESTATION My faculty preceptor for this patient encounter was physically present during t he encounter and was fully available. All aspects of the patient interview, examination, medical decision making process, and medical care plan development were reviewed and approved by the faculty preceptor. The faculty preceptor is aware and concurs with the plan as stated in the body of this note and will attest to such by his/her cosignature. NIESHA CANCHOLA DO Jun 30, 2018 00:51 MARIA G GILBERT MD Jun 30, 2018 02:20
[2018-06-30] MEDS: MEROPENEM INJ 1 GM in APPROPRIATE DILUENT 1 EA IV SCH ×3 (02:34→18:15)
[2018-06-30 05:25] LABS: HEMATOCRIT 40.3 % (36.0-47.0); MEAN CORPUSCULAR HEMOGLOBIN 32.6 pg (27.0-33.0); MEAN CORPUSCULAR HGB CONC 32.3 g/dl (32.0-36.5); PLATELET COUNT, AUTOMATED 196 10^3/uL (150-450); RED BLOOD COUNT 3.99 10^6/uL (4.00-5.40); WHITE BLOOD COUNT 11.4 10^3/uL (4.0-10.0)
[2018-06-30 05:51] LABS: BLOOD UREA NITROGEN 19 MG/DL (7-18); CALCIUM LEVEL 8.5 MG/DL (8.5-10.1); CARBON DIOXIDE LEVEL 29 MEQ/L (21-32); CHLORIDE LEVEL 106 MEQ/L (98-107); CREATININE FOR GFR 0.49 MG/DL (0.55-1.30); GLOMERULAR FILTRATION RATE > 60.0 (>60); GLUCOSE, FASTING 130 MG/DL (70-100); POTASSIUM SERUM 3.8 MEQ/L (3.5-5.1); SODIUM LEVEL 142 MEQ/L (136-145)
[2018-06-30 06:09] LABS: ABG BASE EXCESS -0.6 (-2.0-2.0); ABG HCO3 27.1 MEQ/L (22.0-26.0); ABG O2 SATURATION 95.8 % (95.0-99.0); ABG PARTIAL PRESSURE CO2 58.1 mmHg (35.0-45.0); ABG PARTIAL PRESSURE O2 85.4 mmHg (75.0-100.0); ABG STANDARD HCO3 23.9 MEQ/L (22.0-26.0); ABG TOTAL CO2 28.9 MEQ/L (22.0-29.0); ABG pH (ARTERIAL) 7.287 UNITS (7.350-7.450)
--- NOTE | 2018-06-30 06:57 | REP ---
Clinical: Dyspnea. Comparison: 07/09/2017. Findings: Examination is limited by portable technique, underpenetration, and positioning. Cardiomegaly is suggested along with diffuse chronic interstitial changes. Interstitial edema and basilar atelectasis cannot be excluded. Old right humerus fracture. Impression: Limited examination. Cannot exclude interstitial edema or trace atelectasis Electronically Signed by Mac Montes MD 06/30/2018 06:48 A
[2018-06-30] MEDS: LEVALBUTEROL 1.25 MG/0.5 ML CONCENTRATE NEB INH SCH ×4 (08:00→19:55)
[2018-06-30] MEDS: IPRATROPIUM 0.02% SOLN 0.5MG/2.5 ML NEB INH SCH ×4 (08:00→19:55)
--- NOTE | 2018-06-30 08:14 | IPNPDOC ---
Subjective Date Seen The patient was seen on 06/30/18. Subjective Chief Complaint/HPI Per nursing staff, Klaudia's resp. status has improved. She has not required Vapotherm. Maintaining oxygen on high flow NC. Constitutional: Denies: Chills, Fever Pulmonary: Reports: Dyspnea, Cough Cardiovascular: Denies: Chest Pain, Palpitations Gastrointestinal: Denies: Nausea, Vomiting, Abdominal Pain, Diarrhea, Constipation Objective Physical Examination General Exam: Negative: Alert (sleeping - breathing comfortably) Chest Exam: Positive: Clear to auscultation; Negative: Rales, Rhonchi, Wheezing Heart Exam: Positive: Rate Normal, Regular Rhythm Abdomen Exam: Positive: BS Hypoactive, Soft, Other (protuberant); Negative: Tenderness Extremity Exam: Negative: Edema Assessment /Plan Problems (1) Aspiration pneumonia Status: Acute Response to Treatment: Improving Problem Text: D/C Vapotherm - not requiring this cont high flow NC cont Meropenem and Flagyl cont nebs Move to PCU (2) Feeding by G-tube Status: Chronic Problem Text: restart feedings at usual rate and monitor (3) Hypoxemia Status: Acute Response to Treatment: Improving Problem Text: see above (4) Seizure disorder Onset Date: 01/30/2014 Status: Chronic Response to Treatment: Stable (5) Cerebral palsy Onset Date: 01/30/2014 Status: Chronic Response to Treatment: Stable Plan/VTE VTE Prophylaxis Ordered?: Yes (David) VS, I&O, 24H, Fishbone Vital Signs/I&O Vital Signs Date Time Temp Pulse Resp B/P (MAP) Pulse Ox O2 Delivery O2 Flow Rate FiO2 06/30/18 08:01 75 06/30/18 08:01 95 Nasal Cannula 5.0 06/30/18 07:50 96.3 33 95/55 (68) I&O- Last 24 Hours up to 6 AM 06/30/18 06:00 Intake Total 1715 ml Output Total 700 ml Balance 1015 ml Laboratory Data 24H LABS Laboratory Tests 2 06/29/18 21:12: Bedside Glucose (Misc Panel) 191H 06/29/18 21:19: Immature Granulocyte % (Auto) 0.3, White Blood Count 11.6H, Red Blood Count 4.01, Hemoglobin 13.4, Hematocrit 42.2, Mean Corpuscular Volume 105.2H, Mean Corpuscular Hemoglobin 33.4H, Mean Corpuscular Hemoglobin Concent 31.8L, Red Cell Distribution Width 15.3H, Platelet Count 221, Neutrophils (%) (Auto) 86.4H, Lymphocytes (%) (Auto) 8.4L, Monocytes (%) (Auto) 3.9, Eosinophils (%) (Auto) 0.8, Basophils (%) (Auto) 0.2, Neutrophils # (Auto) 10.0H, Lymphocytes # (Auto) 1.0L, Monocytes # (Auto) 0.5, Eosinophils # (Auto) 0.1, Basophils # (Auto) 0.0, Nucleated Red Blood Cells % (auto) 0.0, Anion Gap 10, Glomerular Filtration Rate > 60.0, Lactic Acid Level 5.0*H, Blood Urea Nitrogen 23H, Creatinine 0.73, Sodium Level 141, Potassium Level 3.7, Chloride Level 106, Carbon Dioxide Level 25, Calcium Level 8.7 06/29/18 21:55: Urine Appearance CLEAR, Urine Color YELLOW, Urine pH 6.0, Urine Specific Section 1.012, Urine Protein NEGATIVE, Urine Glucose (UA) 1+H, Urine Ketones NEGATIVE, Urine Urobilinogen 0.2, Urine Bilirubin NEGATIVE, Urine Leukocyte Esterase NEGATIVE, Urine Blood NEGATIVE, Urine Nitrite NEGATIVE, Urine WBC (Auto) 1, Urine RBC (Auto) 2, Urine Hyaline Casts (Auto) 1, Urine Bacteria (Auto) NEGATIVE, Urine Squamous Epithelial Cells 0, Urine Transitional Epithelial Cells <1, Urine Sperm (Auto) 06/30/18 00:16: Blood Gas Bicarbonate Standard 25.7, Arterial Blood pH 7.351, Arterial Blood Partial Pressure CO2 51.6H, Arterial Blood Partial Pressure O2 105.0H, Arterial Blood Total CO2 29.5H, Arterial Blood HCO3 27.9H, Arterial Blood Base Excess 1.4, Arterial Blood Oxygen Saturation 97.8 06/30/18 01:50: Lactic Acid Followup at 4 Hours 0.9 06/30/18 04:15: 06/30/18 05:02: Nucleated Red Blood Cells % (auto) 0.0, Anion Gap 7L, Glomerular Filtration Rate > 60.0, Blood Urea Nitrogen 19H, Creatinine 0.49L, Sodium Level 142, Potassium Level 3.8, Chloride Level 106, Carbon Dioxide Level 29, Calcium Level 8.5 06/30/18 05:50: Blood Gas Bicarbonate Standard 23.9, Arterial Blood pH 7.287L, Arterial Blood Partial Pressure CO2 58.1H, Arterial Blood Partial Pressure O2 85.4, Arterial Blood Total CO2 28.9, Arterial Blood HCO3 27.1H, Arterial Blood Base Excess - 0.6, Arterial Blood Oxygen Saturation 95.8 CBC/BMP Laboratory Tests 06/29/18 21:19 Red Blood Count 4.01, Mean Corpuscular Volume 105.2 H, Mean Corpuscular Hemoglobin 33.4 H, Mean Corpuscular Hemoglobin Concent 31.8 L, Red Cell Distribution Width 15.3 H, Neutrophils (%) (Auto) 86.4 H, Lymphocytes (%) (Auto) 8.4 L, Monocytes (%) (Auto) 3.9, Eosinophils (%) (Auto) 0.8, Basophils (%) (Auto) 0.2, Neutrophils # (Auto) 10.0 H, Lymphocytes # (Auto) 1.0 L, Monocytes # (Auto) 0.5, Eosinophils # (Auto) 0.1, Basophils # (Auto) 0.0, Calcium Level 8.7 06/30/18 05:02 Red Blood Count 3.99 L, Mean Corpuscular Volume 101.0 H, Mean Corpuscular Hemoglobin 32.6, Mean Corpuscular Hemoglobin Concent 32.3, Red Cell Distribution Width 15.1 H, Calcium Level 8.5 Microbiology Microbiology 06/29/18 Blood Culture, Received Pending 06/29/18 Urine Culture, Received Pending ROSALINA CORNEJO PA-C Jun 30, 2018 08:14
[2018-06-30] MEDS ORDERED: NS 500 ML IV ONE (09:00)
[2018-06-30] MEDS ORDERED: ENTER DRUG NAME HERE (PATIENT'S OWN MED) GT SCH ×2 (09:00→21:00)
[2018-06-30] MEDS: CALCIUM CARB SUSP 1250MG/5ML UNIT DOSE CUP GT SCH ×2 (09:37→21:11)
[2018-06-30] MEDS: raNITIdine SYRUP 150 MG/10 ML UDC GT SCH ×2 (09:37→21:11)
[2018-06-30] MEDS: LACOSAMIDE 50 MG TAB (VIMPAT) GT SCH ×2 (09:37→21:12)
[2018-06-30] MEDS: CLINDAMYCIN TOP 1% SOLN 60 ML BTL TOP SCH ×2 (09:37→21:10)
[2018-06-30] MEDS: NYSTATIN 100,000 UNITS/GM TOPICAL PWD 15 GM TOP SCH ×2 (09:38→21:11)
[2018-06-30] MEDS: levETIRAcetam ORAL SOLUTION 500 MG/5 ML UDC GT SCH ×2 (12:57→21:11)
[2018-06-30] MEDS: CLORAZEPATE 3.75 MG TAB GT SCH ×2 (13:35→21:09)
[2018-06-30] MEDS: CYPROHEPTADINE 4 MG TAB GT SCH ×3 (13:35→21:03)
[2018-06-30] MEDS ORDERED: CHLORHEXIDINE GLUCONATE 0.12 % 15ML UDC (PERIDEX ORAL RINSE) XX SCH (21:00)
[2018-06-30] MEDS ORDERED: PILL CRUSHER/CUTTER 1 EACH XX PRN (21:00)
[2018-06-30] MEDS ORDERED: ENTER DRUG NAME HERE (PATIENT'S OWN MED) JT SCH (21:00)
[2018-06-30] MEDS: CETIRIZINE (ZyrTEC) 10 MG TAB GT SCH (21:09)
[2018-06-30] MEDS: MINOCYCLINE 50 MG CAP GT SCH (21:09)
[2018-06-30] MEDS: RIVAROXABAN 20 MG TAB (XARELTO) GT SCH (21:09)
[2018-06-30] MEDS: SCOPOLAMINE 1MG TRANSDERMAL PATCH TOP SCH (21:10)
[2018-06-30] MEDS: MIRALAX *UNIT DOSE* 17GM PACKET GT SCH (21:11)
[2018-07-01] VITALS (9 sets, daily range): BP systolic 80–132; BP diastolic 50–75
[2018-07-01] MEDS: metroNIDAZOLE 500 MG in APPROPRIATE DILUENT 1 EA IV SCH ×4 (00:03→23:22)
[2018-07-01] MEDS: MULTIVITAMINS LIQ DROPS 50 ML BTL GT SCH ×2 (00:03→21:30)
[2018-07-01] MEDS: MEROPENEM INJ 1 GM in APPROPRIATE DILUENT 1 EA IV SCH ×3 (01:52→18:52)
[2018-07-01 04:39] LABS: HEMATOCRIT 38.8 % (36.0-47.0); HEMOGLOBIN 12.8 g/dl (12.0-15.5); MEAN CORPUSCULAR HEMOGLOBIN 33.3 pg (27.0-33.0); PLATELET COUNT, AUTOMATED 146 10^3/uL (150-450); RED BLOOD COUNT 3.84 10^6/uL (4.00-5.40); WHITE BLOOD COUNT 9.2 10^3/uL (4.0-10.0)
[2018-07-01 05:03] LABS: BLOOD UREA NITROGEN 21 MG/DL (7-18); CARBON DIOXIDE LEVEL 25 MEQ/L (21-32); CHLORIDE LEVEL 113 MEQ/L (98-107); CREATININE FOR GFR 0.53 MG/DL (0.55-1.30); GLOMERULAR FILTRATION RATE > 60.0 (>60); GLUCOSE, FASTING 117 MG/DL (70-100); POTASSIUM SERUM 4.4 MEQ/L (3.5-5.1); SODIUM LEVEL 145 MEQ/L (136-145)
[2018-07-01] MEDS: IPRATROPIUM 0.02% SOLN 0.5MG/2.5 ML NEB INH SCH ×4 (08:00→20:11)
[2018-07-01] MEDS: LEVALBUTEROL 1.25 MG/0.5 ML CONCENTRATE NEB INH SCH ×4 (08:00→20:12)
[2018-07-01] MEDS: BENZOYL PEROXIDE 10% TOP SCH ×2 (09:00→21:31)
[2018-07-01] MEDS: [UNRECOGNIZED DRUG - OTHER] TOP SCH ×2 (09:00→21:31)
[2018-07-01] MEDS ORDERED: NS 500 ML IV ONE (09:00)
[2018-07-01] MEDS: LACOSAMIDE 50 MG TAB (VIMPAT) GT SCH ×2 (09:01→21:07)
[2018-07-01] MEDS: raNITIdine SYRUP 150 MG/10 ML UDC GT SCH ×2 (09:01→21:09)
[2018-07-01] MEDS: CALCIUM CARB SUSP 1250MG/5ML UNIT DOSE CUP GT SCH ×2 (09:02→21:08)
[2018-07-01] MEDS: CYPROHEPTADINE 4 MG TAB GT SCH ×3 (09:02→21:07)
[2018-07-01] MEDS: levETIRAcetam ORAL SOLUTION 500 MG/5 ML UDC GT SCH ×2 (09:18→21:09)
[2018-07-01] MEDS: CLORAZEPATE 3.75 MG TAB GT SCH ×2 (09:19→21:27)
--- NOTE | 2018-07-01 09:40 | IPNPDOC ---
Subjective Date Seen The patient was seen on 07/01/18. Subjective Chief Complaint/HPI Nursing and residence Asst Interior Design Coordinator at bedside, no concerns today. Requests for Chest PT made. General: Reports: ROS Unobtainable Objective Physical Examination General Exam: Positive: Alert (opens eyes to voice) ENT Exam: Positive: Mucous membr. moist/pink Chest Exam: Positive: Diminished; Negative: Clear to auscultation, Rales, Rhonchi, Wheezing Heart Exam: Positive: Rate Normal, Regular Rhythm Abdomen Exam: Positive: BS Hypoactive, Soft, Other (protuberant); Negative: Tenderness Extremity Exam: Negative: Edema Assessment /Plan Problems (1) Aspiration pneumonia Status: Acute Response to Treatment: Improving Problem Text: 07/01 Meropenem/Flagyl D 2 Cont with Nebs, resp status stable. Chest PT ordered per home protocol. 06/30 D/C Vapotherm - not requiring this cont high flow NC cont Meropenem and Flagyl cont nebs Move to PCU (2) Feeding by G-tube Status: Chronic Problem Text: 07/01 Feedings resumed but not free water flushes, addressed this today, she appears a bit behind on her fluids as a result (low BP, low urine output) will given NS 500 cc bolus, monitor. 06/30 restart feedings at usual rate and monitor (3) Hypoxemia Status: Acute Response to Treatment: Improving Problem Text: see above (4) Seizure disorder Onset Date: 01/30/2014 Status: Chronic Response to Treatment: Stable (5) Cerebral palsy Onset Date: 01/30/2014 Status: Chronic Response to Treatment: Stable Plan/VTE VTE Prophylaxis Ordered?: Yes (Xarelto) VS, I&O, 24H, Fishbone Vital Signs/I&O Vital Signs Date Time Temp Pulse Resp B/P (MAP) Pulse Ox O2 Delivery O2 Flow Rate FiO2 07/01/18 07:42 5.0 07/01/18 07:34 99.0 84 20 80/65 (70) 97 High Flow Cannula I&O- Last 24 Hours up to 6 AM 07/01/18 05:59 Intake Total 2065 ml Output Total 902 ml Balance 1163 ml Laboratory Data 24H LABS Laboratory Tests 2 07/01/18 04:27: Nucleated Red Blood Cells % (auto) 0.0, Anion Gap 7L, Glomerular Filtration Rate > 60.0, Blood Urea Nitrogen 21H, Creatinine 0.53L, Sodium Level 145, Potassium Level 4.4, Chloride Level 113H, Carbon Dioxide Level 25, Calcium Level 8.0L CBC/BMP Laboratory Tests 07/01/18 04:27 Red Blood Count 3.84 L, Mean Corpuscular Volume 101.0 H, Mean Corpuscular Hemoglobin 33.3 H, Mean Corpuscular Hemoglobin Concent 33.0, Red Cell Distribution Width 15.9 H, Calcium Level 8.0 L Microbiology Microbiology 06/29/18 Blood Culture - Preliminary, Resulted 07/01/18 Gram Stain, Received Pending 07/01/18 Sputum Culture, Received Pending 06/29/18 Urine Culture, Received Pending LANIE YORK PA-C Jul 01, 2018 09:40
[2018-07-01] MEDS: NYSTATIN 100,000 UNITS/GM TOPICAL PWD 15 GM TOP SCH ×2 (11:37→21:31)
[2018-07-01] MEDS: CLINDAMYCIN TOP 1% SOLN 60 ML BTL TOP SCH ×2 (11:37→21:30)
[2018-07-01] MEDS: MINOCYCLINE 50 MG CAP GT SCH (21:07)
[2018-07-01] MEDS: RIVAROXABAN 20 MG TAB (XARELTO) GT SCH (21:08)
[2018-07-01] MEDS: CETIRIZINE (ZyrTEC) 10 MG TAB GT SCH (21:08)
[2018-07-01] MEDS: MIRALAX *UNIT DOSE* 17GM PACKET GT SCH (21:16)
[2018-07-02] MEDS: MEROPENEM INJ 1 GM in APPROPRIATE DILUENT 1 EA IV SCH ×3 (00:50→19:03)
[2018-07-02 04:00] VITALS: BP 101/57
[2018-07-02 06:04] LABS: HEMATOCRIT 38.7 % (36.0-47.0); HEMOGLOBIN 12.5 g/dl (12.0-15.5); MEAN CORPUSCULAR HEMOGLOBIN 33.2 pg (27.0-33.0); MEAN CORPUSCULAR HGB CONC 32.3 g/dl (32.0-36.5); MEAN CORPUSCULAR VOLUME 102.7 fl (80.0-96.0); PLATELET COUNT, AUTOMATED 213 10^3/uL (150-450); RED BLOOD COUNT 3.77 10^6/uL (4.00-5.40); WHITE BLOOD COUNT 7.5 10^3/uL (4.0-10.0)
[2018-07-02 06:26] LABS: BLOOD UREA NITROGEN 21 MG/DL (7-18); CALCIUM LEVEL 8.4 MG/DL (8.5-10.1); CARBON DIOXIDE LEVEL 30 MEQ/L (21-32); CHLORIDE LEVEL 116 MEQ/L (98-107); CREATININE FOR GFR 0.54 MG/DL (0.55-1.30); GLOMERULAR FILTRATION RATE > 60.0 (>60); GLUCOSE, FASTING 106 MG/DL (70-100); POTASSIUM SERUM 3.6 MEQ/L (3.5-5.1); SODIUM LEVEL 151 MEQ/L (136-145)
[2018-07-02] MEDS: IPRATROPIUM 0.02% SOLN 0.5MG/2.5 ML NEB INH SCH ×4 (07:15→20:08)
[2018-07-02] MEDS: LEVALBUTEROL 1.25 MG/0.5 ML CONCENTRATE NEB INH SCH ×4 (07:15→20:08)
[2018-07-02 07:51] VITALS: BP 146/72
[2018-07-02] MEDS: levETIRAcetam ORAL SOLUTION 500 MG/5 ML UDC GT SCH ×2 (08:23→22:47)
[2018-07-02] MEDS: raNITIdine SYRUP 150 MG/10 ML UDC GT SCH ×2 (08:23→22:51)
[2018-07-02] MEDS: CALCIUM CARB SUSP 1250MG/5ML UNIT DOSE CUP GT SCH ×2 (08:23→22:47)
[2018-07-02] MEDS: metroNIDAZOLE 500 MG in APPROPRIATE DILUENT 1 EA IV SCH ×2 (08:24→17:29)
[2018-07-02] MEDS: LACOSAMIDE 50 MG TAB (VIMPAT) GT SCH ×2 (08:24→22:50)
[2018-07-02] MEDS: CYPROHEPTADINE 4 MG TAB GT SCH ×3 (08:24→22:49)
--- NOTE | 2018-07-02 08:44 | IPNPDOC ---
Subjective Date Seen The patient was seen on 07/02/18. Subjective Chief Complaint/HPI Pt with caregiver at bedside, he has no new concerns. Met with pts nurse who also is without new concerns today. General: Reports: ROS Unobtainable Objective Physical Examination General Exam: Positive: Alert (she is looking around the room when I entered) ENT Exam: Positive: Mucous membr. moist/pink Chest Exam: Positive: Diminished; Negative: Clear to auscultation, Rales, Rhonchi, Wheezing Heart Exam: Positive: Rate Normal, Regular Rhythm Abdomen Exam: Positive: Normal bowel sounds, Soft, Other (protuberant); Negative: Tenderness Extremity Exam: Negative: Edema Neuro Exam: Negative: Normal Speech Psych Exam: Negative: Mental status NL Assessment /Plan Problems (1) Aspiration pneumonia Status: Acute Response to Treatment: Improving Problem Text: 07/02 Meropenem/Flagyl D3, cont with nebs, resp status stable, cont with Chest PT. 07/01 Meropenem/Flagyl D 2 Cont with Nebs, resp status stable. Chest PT ordered per home protocol. 06/30 D/C Vapotherm - not requiring this cont high flow NC cont Meropenem and Flagyl cont nebs Move to PCU (2) Hypernatremia Status: Acute Discussed With: Nurse Problem Specific Plan: Monitor Clinically, Repeat Labs Problem Text: Pt on her routine regimen for feedings now, she also rec a NS 500 cc fluid bolus yest, repeat labs in AM. Monitor. (3) Feeding by G-tube Status: Chronic Problem Text: 07/01 Feedings resumed but not free water flushes, addressed this today, she appears a bit behind on her fluids as a result (low BP, low urine output) will given NS 500 cc bolus, monitor. 06/30 restart feedings at usual rate and monitor (4) Hypoxemia Status: Acute Response to Treatment: Improving Problem Text: see above (5) Seizure disorder Onset Date: 01/30/2014 Status: Chronic Response to Treatment: Stable (6) Cerebral palsy Onset Date: 01/30/2014 Status: Chronic Response to Treatment: Stable Plan/VTE VTE Prophylaxis Ordered?: Yes (Xarelto) VS, I&O, 24H, Fishbone Vital Signs/I&O Vital Signs Date Time Temp Pulse Resp B/P (MAP) Pulse Ox O2 Delivery O2 Flow Rate FiO2 07/02/18 07:51 97.7 63 19 146/72 (96) 100 High Flow Cannula 1.0 I&O- Last 24 Hours up to 6 AM 07/02/18 06:00 Intake Total 1530 ml Output Total 800 ml Balance 730 ml Laboratory Data 24H LABS Laboratory Tests 2 07/02/18 05:34: Nucleated Red Blood Cells % (auto) 0.0, Anion Gap 5L, Glomerular Filtration Rate > 60.0, Blood Urea Nitrogen 21H, Creatinine 0.54L, Sodium Level 151H, Potassium Level 3.6, Chloride Level 116H, Carbon Dioxide Level 30, Calcium Level 8.4L CBC/BMP Laboratory Tests 07/02/18 05:34 Red Blood Count 3.77 L, Mean Corpuscular Volume 102.7 H, Mean Corpuscular Hemoglobin 33.2 H, Mean Corpuscular Hemoglobin Concent 32.3, Red Cell Distribution Width 16.4 H, Calcium Level 8.4 L Microbiology Microbiology 06/29/18 Blood Culture - Final, Complete Staphylococcus Epidermidis 07/01/18 Gram Stain - Final, Resulted 07/01/18 Sputum Culture, Resulted Pending 06/29/18 Urine Culture - Final, Complete LANIE YORK PA-C Jul 02, 2018 08:44
[2018-07-02] MEDS: CLORAZEPATE 3.75 MG TAB GT SCH ×2 (10:12→22:49)
[2018-07-02] MEDS: CLINDAMYCIN TOP 1% SOLN 60 ML BTL TOP SCH ×2 (10:12→22:51)
[2018-07-02] MEDS: NYSTATIN 100,000 UNITS/GM TOPICAL PWD 15 GM TOP SCH ×2 (10:12→22:52)
[2018-07-02] MEDS: BENZOYL PEROXIDE 10% TOP SCH ×2 (10:13→22:51)
[2018-07-02] MEDS: [UNRECOGNIZED DRUG - OTHER] TOP SCH ×2 (10:13→22:51)
[2018-07-02] MEDS ORDERED: SLF 3 ML SYR IV PRN (11:15)
[2018-07-02 12:00] VITALS: BP 132/70
[2018-07-02 14:14] LABS: BODY FLUID CULTURE Not Indicated (.); LEGIONELLA ANTIGEN URINE Negative (Negative); ORGANISM ID Not indicated. (.); SPECIMEN SOURCE Urine (.); URINE STREP PNEUMONIAE ANTIGEN Negative (Negative)
[2018-07-02] MEDS: SLF 3 ML SYR IV SCH ×2 (17:28→22:00)
[2018-07-02 17:49] VITALS: BP 122/84
[2018-07-02 20:00] VITALS: BP 164/88
[2018-07-02 20:50] VITALS: BP 121/86
[2018-07-02] MEDS: MULTIVITAMINS LIQ DROPS 50 ML BTL GT SCH (22:49)
[2018-07-02] MEDS: RIVAROXABAN 20 MG TAB (XARELTO) GT SCH (22:50)
[2018-07-02] MEDS: CETIRIZINE (ZyrTEC) 10 MG TAB GT SCH (22:50)
[2018-07-02] MEDS: MINOCYCLINE 50 MG CAP GT SCH (22:53)
[2018-07-02] MEDS: MIRALAX *UNIT DOSE* 17GM PACKET GT SCH (22:54)
[2018-07-03] MEDS: metroNIDAZOLE 500 MG in APPROPRIATE DILUENT 1 EA IV SCH ×2 (00:04→09:48)
[2018-07-03] MEDS: MEROPENEM INJ 1 GM in APPROPRIATE DILUENT 1 EA IV SCH ×3 (01:23→17:16)
[2018-07-03 02:00] VITALS: BP 128/74
[2018-07-03] MEDS: SLF 3 ML SYR IV SCH ×3 (05:13→21:33)
[2018-07-03 05:36] LABS: HEMATOCRIT 37.3 % (36.0-47.0); HEMOGLOBIN 12.3 g/dl (12.0-15.5); MEAN CORPUSCULAR HEMOGLOBIN 33.5 pg (27.0-33.0); MEAN CORPUSCULAR VOLUME 101.6 fl (80.0-96.0); PLATELET COUNT, AUTOMATED 204 10^3/uL (150-450); RED BLOOD COUNT 3.67 10^6/uL (4.00-5.40)
[2018-07-03 05:55] LABS: BLOOD UREA NITROGEN 19 MG/DL (7-18); CALCIUM LEVEL 8.2 MG/DL (8.5-10.1); CARBON DIOXIDE LEVEL 28 MEQ/L (21-32); CHLORIDE LEVEL 116 MEQ/L (98-107); CREATININE FOR GFR 0.43 MG/DL (0.55-1.30); GLOMERULAR FILTRATION RATE > 60.0 (>60); GLUCOSE, FASTING 115 MG/DL (70-100); POTASSIUM SERUM 3.6 MEQ/L (3.5-5.1); SODIUM LEVEL 149 MEQ/L (136-145)
[2018-07-03 06:00] VITALS: BP 125/89
[2018-07-03] MEDS: IPRATROPIUM 0.02% SOLN 0.5MG/2.5 ML NEB INH SCH ×4 (07:35→20:16)
[2018-07-03] MEDS: LEVALBUTEROL 1.25 MG/0.5 ML CONCENTRATE NEB INH SCH ×4 (07:35→20:17)
[2018-07-03] MEDS: NYSTATIN 100,000 UNITS/GM TOPICAL PWD 15 GM TOP SCH ×2 (09:48→20:52)
[2018-07-03] MEDS: CALCIUM CARB SUSP 1250MG/5ML UNIT DOSE CUP GT SCH ×2 (09:48→20:53)
[2018-07-03] MEDS: raNITIdine SYRUP 150 MG/10 ML UDC GT SCH ×2 (09:48→20:53)
[2018-07-03] MEDS: LACOSAMIDE 50 MG TAB (VIMPAT) GT SCH ×2 (09:48→20:54)
[2018-07-03] MEDS: levETIRAcetam ORAL SOLUTION 500 MG/5 ML UDC GT SCH ×2 (09:48→20:54)
[2018-07-03] MEDS: [UNRECOGNIZED DRUG - OTHER] TOP SCH ×2 (09:49→20:53)
[2018-07-03] MEDS: CLORAZEPATE 3.75 MG TAB GT SCH ×2 (09:49→20:54)
[2018-07-03] MEDS: CYPROHEPTADINE 4 MG TAB GT SCH ×3 (09:49→20:54)
[2018-07-03] MEDS: CLINDAMYCIN TOP 1% SOLN 60 ML BTL TOP SCH ×2 (09:49→20:53)
[2018-07-03] MEDS: BENZOYL PEROXIDE 10% TOP SCH ×2 (09:49→20:53)
[2018-07-03 10:00] VITALS: BP 140/93
--- NOTE | 2018-07-03 13:36 | IPNPDOC ---
Subjective Date Seen The patient was seen on 07/03/18. Subjective Chief Complaint/HPI Patient seen and examined at bedside. Is nonverbal. [facility] Echocardiographer Cora at bedside who was overnight with patient states patient has had some difficulty breathing overnight from baseline, and seems to be congested. States patient has been sleeping well and a lot. Denies patient spitting up. Admits patient does have a cough. General: Reports: ROS Unobtainable (Please see above. ) Objective Physical Examination General Exam: Positive: Alert (she is looking around the room when I entered), Other (Nonverbal) Eye Exam: Positive: Conjunctiva & lids normal ENT Exam: Positive: Atraumatic, Mucous membr. moist/pink, Other ENT (there is some white phlegm noticeable in corners of inside of mouth.) Neck Exam: Positive: Supple Chest Exam: Positive: Rhonchi (scattered throughout all lung ramirez), Diminished; Negative: Clear to auscultation, Normal air movement, Rales, Wheezing Heart Exam: Positive: Rate Normal, Regular Rhythm, Normal S1, Normal S2 Abdomen Exam: Positive: Normal bowel sounds, Soft, Other (obese; G-tube in position and clean without any surrounding purulent drainage or erythema around G-tube skin sites. ); Negative: Tenderness Extremity Exam: Positive: Other ((+)Contractures of all 4 extremities noted. ); Negative: Clubbing, Cyanosis, Edema Skin Exam: Positive: Nl turgor and temperature; Negative: Rash Neuro Exam: Negative: Normal Speech Psych Exam: Negative: Mental status NL Assessment /Plan Problems (1) Aspiration pneumonia Status: Acute Response to Treatment: Improving Problem Text: 07/03: On Day 4 of Meropenem/Flagyl. WBC WNL at 5 today. Have d/ce'd flagyl as it is not the best antibiotic for respiratory infections. Have added tobramycin. Will monitor for clinical improvement. Continue with atrovent RQID and q2hP SOB, xoponex 1.25 mg RQID and q2h PRN SOB, meropenem 1 gm IV q8h, guaifenesin q4h PRN congestion. 07/02 Meropenem/Flagyl D3, cont with nebs, resp status stable, cont with Chest PT. 07/01 Meropenem/Flagyl D 2 Cont with Nebs, resp status stable. Chest PT ordered per home protocol. 06/30 D/C Vapotherm - not requiring this cont high flow NC cont Meropenem and Flagyl cont nebs Move to PCU (2) Hypernatremia Status: Acute Discussed With: Nurse Problem Specific Plan: Monitor Clinically, Repeat Labs Problem Text: 07/03/18: Continue with G-tube feedings as per [facility] staff. Hypernatremic due to decreased fluids and G-tube feed intake. Give extra free water if still hypernatremic. Monitor BMP. Pt on her routine regimen for feedings now, she also rec a NS 500 cc fluid bolus yest, repeat labs in AM. Monitor. (3) Feeding by G-tube Status: Chronic Problem Text: 07/01 Feedings resumed but not free water flushes, addressed this today, she appears a bit behind on her fluids as a result (low BP, low urine output) will given NS 500 cc bolus, monitor. 06/30 restart feedings at usual rate and monitor (4) Hypoxemia Status: Acute Response to Treatment: Improving Problem Text: see above (5) Seizure disorder Onset Date: 01/30/2014 Status: Chronic Response to Treatment: Stable (6) Cerebral palsy Onset Date: 01/30/2014 Status: Chronic Response to Treatment: Stable Plan/VTE VTE Prophylaxis Ordered?: Yes (Xarelto 20 mg QHS GT) VS, I&O, 24H, Fishbone Vital Signs/I&O Vital Signs Date Time Temp Pulse Resp B/P (MAP) Pulse Ox O2 Delivery O2 Flow Rate FiO2 07/03/18 10:00 97.8 91 17 140/93 (109) 95 Room Air 07/02/18 12:00 I&O- Last 24 Hours up to 6 AM 07/03/18 06:00 Intake Total 730 ml Output Total 0 ml Balance 730 ml Laboratory Data 24H LABS Laboratory Tests 2 07/03/18 05:26: Nucleated Red Blood Cells % (auto) 0.0, Anion Gap 5L, Glomerular Filtration Rate > 60.0, Blood Urea Nitrogen 19H, Creatinine 0.43L, Sodium Level 149H, Potassium Level 3.6, Chloride Level 116H, Carbon Dioxide Level 28, Calcium Level 8.2L CBC/BMP Laboratory Tests 07/03/18 05:26 Red Blood Count 3.67 L, Mean Corpuscular Volume 101.6 H, Mean Corpuscular Hemoglobin 33.5 H, Mean Corpuscular Hemoglobin Concent 33.0, Red Cell Distribution Width 16.5 H, Calcium Level 8.2 L Microbiology Microbiology 06/29/18 Blood Culture - Final, Complete Staphylococcus Epidermidis 07/01/18 Gram Stain - Final, Complete 07/01/18 Sputum Culture - Final, Complete Pseudomonas Aeruginosa 06/29/18 Urine Culture - Final, Complete GME ATTESTATION GME ATTESTATION My faculty preceptor for this patient encounter was Dr. Liam Herrera, and was physically present during the encounter and was fully available. All aspects of the patient interview, examination, medical decision making process, and medical care plan development were reviewed and approved by the faculty preceptor. The faculty preceptor is aware and concurs with the plan as stated in the body of this note and will attest to such by his/her cosignature. SAMY LORA DO Jul 03, 2018 13:36
[2018-07-03] MEDS: TOBRAMYCIN SULF 100 MG in D5W 50 ML IV SCH (13:41)
[2018-07-03 14:00] VITALS: BP 130/75
[2018-07-03] MEDS: MIRALAX *UNIT DOSE* 17GM PACKET GT SCH (20:33)
[2018-07-03] MEDS: MULTIVITAMINS LIQ DROPS 50 ML BTL GT SCH (20:53)
[2018-07-03] MEDS: MINOCYCLINE 50 MG CAP GT SCH (20:54)
[2018-07-03] MEDS: RIVAROXABAN 20 MG TAB (XARELTO) GT SCH (20:54)
[2018-07-03] MEDS: CETIRIZINE (ZyrTEC) 10 MG TAB GT SCH (20:54)
[2018-07-03] MEDS: SCOPOLAMINE 1MG TRANSDERMAL PATCH TOP SCH (21:33)
[2018-07-03 22:00] VITALS: BP 133/70
[2018-07-04] MEDS: MEROPENEM INJ 1 GM in APPROPRIATE DILUENT 1 EA IV SCH ×3 (01:03→17:01)
[2018-07-04 02:00] VITALS: BP 158/85
[2018-07-04] MEDS: TOBRAMYCIN SULF 100 MG in D5W 50 ML IV SCH ×2 (02:01→13:41)
[2018-07-04] MEDS: SLF 3 ML SYR IV SCH ×3 (05:17→21:30)
[2018-07-04 05:54] LABS: HEMATOCRIT 39.2 % (36.0-47.0); HEMOGLOBIN 12.9 g/dl (12.0-15.5); MEAN CORPUSCULAR HEMOGLOBIN 32.7 pg (27.0-33.0); MEAN CORPUSCULAR HGB CONC 32.9 g/dl (32.0-36.5); MEAN CORPUSCULAR VOLUME 99.5 fl (80.0-96.0); PLATELET COUNT, AUTOMATED 228 10^3/uL (150-450); RED BLOOD COUNT 3.94 10^6/uL (4.00-5.40); WHITE BLOOD COUNT 5.2 10^3/uL (4.0-10.0)
[2018-07-04 06:00] VITALS: BP 149/81
[2018-07-04 06:10] LABS: BLOOD UREA NITROGEN 15 MG/DL (7-18); CALCIUM LEVEL 8.7 MG/DL (8.5-10.1); CARBON DIOXIDE LEVEL 28 MEQ/L (21-32); CHLORIDE LEVEL 114 MEQ/L (98-107); CREATININE FOR GFR 0.46 MG/DL (0.55-1.30); GLOMERULAR FILTRATION RATE > 60.0 (>60); GLUCOSE, FASTING 119 MG/DL (70-100); POTASSIUM SERUM 4.1 MEQ/L (3.5-5.1); SODIUM LEVEL 147 MEQ/L (136-145)
[2018-07-04] MEDS: LEVALBUTEROL 1.25 MG/0.5 ML CONCENTRATE NEB INH SCH ×4 (07:51→19:53)
[2018-07-04] MEDS: IPRATROPIUM 0.02% SOLN 0.5MG/2.5 ML NEB INH SCH ×4 (07:51→19:52)
[2018-07-04 10:00] VITALS: BP 124/63
[2018-07-04] MEDS: [UNRECOGNIZED DRUG - OTHER] TOP SCH ×2 (10:14→21:29)
[2018-07-04] MEDS: BENZOYL PEROXIDE 10% TOP SCH ×2 (10:14→21:29)
[2018-07-04] MEDS: CLORAZEPATE 3.75 MG TAB GT SCH ×2 (10:14→22:42)
[2018-07-04] MEDS: raNITIdine SYRUP 150 MG/10 ML UDC GT SCH ×2 (10:15→21:25)
[2018-07-04] MEDS: LACOSAMIDE 50 MG TAB (VIMPAT) GT SCH ×2 (10:15→21:26)
[2018-07-04] MEDS: levETIRAcetam ORAL SOLUTION 500 MG/5 ML UDC GT SCH ×2 (10:15→21:25)
[2018-07-04] MEDS: CYPROHEPTADINE 4 MG TAB GT SCH ×3 (10:15→21:25)
[2018-07-04] MEDS: CLINDAMYCIN TOP 1% SOLN 60 ML BTL TOP SCH ×2 (10:16→21:27)
[2018-07-04] MEDS: NYSTATIN 100,000 UNITS/GM TOPICAL PWD 15 GM TOP SCH ×2 (10:16→21:28)
[2018-07-04] MEDS: CALCIUM CARB SUSP 1250MG/5ML UNIT DOSE CUP GT SCH ×2 (13:41→21:25)
[2018-07-04 14:00] VITALS: BP 153/73
[2018-07-04 18:00] VITALS: BP 119/78
[2018-07-04] MEDS: RIVAROXABAN 20 MG TAB (XARELTO) GT SCH (21:24)
[2018-07-04] MEDS: MIRALAX *UNIT DOSE* 17GM PACKET GT SCH (21:24)
[2018-07-04] MEDS: CETIRIZINE (ZyrTEC) 10 MG TAB GT SCH (21:25)
[2018-07-04] MEDS: MINOCYCLINE 50 MG CAP GT SCH (21:25)
[2018-07-04] MEDS: MULTIVITAMINS LIQ DROPS 50 ML BTL GT SCH (21:29)
[2018-07-04 22:00] VITALS: BP 130/80
[2018-07-05] MEDS: MEROPENEM INJ 1 GM in APPROPRIATE DILUENT 1 EA IV SCH ×2 (01:12→10:10)
[2018-07-05 02:00] VITALS: BP 121/63
[2018-07-05 05:48] LABS: HEMATOCRIT 39.8 % (36.0-47.0); MEAN CORPUSCULAR HEMOGLOBIN 32.4 pg (27.0-33.0); MEAN CORPUSCULAR HGB CONC 32.7 g/dl (32.0-36.5); MEAN CORPUSCULAR VOLUME 99.3 fl (80.0-96.0); PLATELET COUNT, AUTOMATED 230 10^3/uL (150-450); RED BLOOD COUNT 4.01 10^6/uL (4.00-5.40); WHITE BLOOD COUNT 6.2 10^3/uL (4.0-10.0)
[2018-07-05 06:00] VITALS: BP 138/77
[2018-07-05] MEDS: SLF 3 ML SYR IV SCH (06:19)
[2018-07-05 06:22] LABS: BLOOD UREA NITROGEN 15 MG/DL (7-18); CALCIUM LEVEL 8.9 MG/DL (8.5-10.1); CARBON DIOXIDE LEVEL 27 MEQ/L (21-32); CHLORIDE LEVEL 113 MEQ/L (98-107); CREATININE FOR GFR 0.56 MG/DL (0.55-1.30); GLOMERULAR FILTRATION RATE > 60.0 (>60); GLUCOSE, FASTING 120 MG/DL (70-100); POTASSIUM SERUM 4.4 MEQ/L (3.5-5.1); SODIUM LEVEL 146 MEQ/L (136-145)
[2018-07-05] MEDS: LEVALBUTEROL 1.25 MG/0.5 ML CONCENTRATE NEB INH SCH ×2 (07:31→11:27)
[2018-07-05] MEDS: IPRATROPIUM 0.02% SOLN 0.5MG/2.5 ML NEB INH SCH ×2 (07:31→11:27)
--- NOTE | 2018-07-05 09:33 | DS.PDOC ---
Discharge Summary General Date of Admission Jun 29, 2018 at 23:48 Date of Discharge 07/05/18 Primary Care Physician: Efrain Lara MD Attending Physician: BEATRICE COSME DO Discharge Summary PROCEDURES PERFORMED DURING STAY: [None]. ADMITTING DIAGNOSES: 1. Aspiration Pneumonia 2. Hx of seizures 3. Feeding Tube 4. Allergic Rhinitis 5. GERD DISCHARGE DIAGNOSES: 1. Aspiration Pneumonia 2. Hx of seizures 3. Feeding Tube 4. Allergic Rhinitis 5. GERD 6. chronic hypothermia 7. Spastic quadriparesis COMPLICATIONS/CHIEF COMPLAINT: Aspiration Pneumonia,Hypoxemia. HISTORY OF PRESENT ILLNESS: Presented to [facility] ED from [facility] residence for cyanosis and SOB. HOSPITAL COURSE: Admitted and treated empirically for Aspiration pneumonia. Received 5 days total of Meropenem. Oxygen has been weaned down to RA. [facility] staff at bedside and patient is at baseline condition. DISCHARGE MEDICATIONS: Please see below. ALLERGIES: Please see below. PHYSICAL EXAMINATION ON DISCHARGE: VITAL SIGNS: Please see below. GENERAL: NAD, smiles responsively NECK: no JVD CARDIOVASCULAR EXAMINATION: RRR S1S2 RESPIRATORY EXAMINATION: CTA ABDOMINAL EXAMINATION: soft, NT EXTREMITIES: no edema, spastic quadriparesis. + contractures SKIN: intact NEUROLOGICAL EXAMINATION: non-verbal. responds to verbal stimuli PSYCHIATRIC EXAMINATION: mood stable. LABORATORY DATA: Please see below. IMAGING: CXR: Findings: Examination is limited by portable technique, underpenetration, and positioning. Cardiomegaly is suggested along with diffuse chronic interstitial changes. Interstitial edema and basilar atelectasis cannot be excluded. Old right humerus fracture. PROGNOSIS: fair ACTIVITY: As tolerated DIET: NPO, return to prior TF DISCHARGE PLAN: back to [facility] residence DISPOSITION: DISCHARGE INSTRUCTIONS: f/u with PCP in 3-5 days ITEMS TO FOLLOWUP ON ON OUTPATIENT: NONE DISCHARGE CONDITION: Stable TIME SPENT ON DISCHARGE: Greater than 15 minutes. Vital Signs/I&Os Vital Signs Date Time Temp Pulse Resp B/P (MAP) Pulse Ox O2 Delivery O2 Flow Rate FiO2 07/05/18 06:00 98.9 100 26 138/77 (97) 94 Room Air 07/02/18 12:00 I&O- Last 24 Hours up to 6 AM 07/05/18 06:00 Intake Total 710 ml Output Total 0 ml Balance 710 ml Laboratory Data Labs 24H Laboratory Tests 2 07/04/18 12:48: Tobramycin Level Trough 4.1*H 07/04/18 15:03: Tobramycin Level Peak 3.2 07/05/18 05:27: Nucleated Red Blood Cells % (auto) 0.3H, Anion Gap 6L, Glomerular Filtration Rate > 60.0, Blood Urea Nitrogen 15, Creatinine 0.56, Sodium Level 146H, Potassium Level 4.4, Chloride Level 113H, Carbon Dioxide Level 27, Calcium Level 8.9 CBC/BMP Laboratory Tests 07/05/18 05:27 Red Blood Count 4.01, Mean Corpuscular Volume 99.3 H, Mean Corpuscular Hemo globin 32.4, Mean Corpuscular Hemoglobin Concent 32.7, Red Cell Distribution Width 16.1 H, Calcium Level 8.9 Microbiology Microbiology 06/29/18 Blood Culture - Final, Complete Staphylococcus Epidermidis 07/01/18 Gram Stain - Final, Complete 07/01/18 Sputum Culture - Final, Complete Pseudomonas Aeruginosa 06/29/18 Urine Culture - Final, Complete Discharge Medications Scheduled (Jevity 1.5 Cedric) 1 Liq Liq, 2 LIQ JT QPM, (Reported) (Benzoyl Peroxide Wash) 10 % Liq, 1 DOSE EXT BID, (Reported) APPLY TO FACE AND EARS (Vitamin D) 400 Unit/Ml Thom, 5 ML GT QHS, (Reported) (Hibiclens) 4 % Liq, 1 DOSE TOP QHS, (Reported) WASH BEHIND EARS, AND ARMPITS DAILY (Promod) 1 Liq Liq, 60 CC GT QHS, (Reported) Calcium Carbonate (Calcium Carbonate) 1,250 Mg/5 Ml Trena, 1,250 MG GT BID, (Reported) Cetirizine HCl (Zyrtec Allergy) 10 Mg Tab, 10 MG GT QHS, (Reported) Clindamycin Phosphate (Clindagel) 1 % Gel, 1 DOSE TOP BID, (Reported) TO FACE, UNDERARMS AND BEHIND EARS Clorazepate Dipotassium (Tranxene T) 7.5 Mg Tab, 7.5 MG GT BID, (Reported) CRUSHED: AM, HS Cyproheptadine HCl (Cyproheptadine HCl) 4 Mg Tab, 8 MG GT TID, (Reported) CRUSHED: AM, PM, HS Ipratropium [place] (Ipratropium [place]) 0.5 Mg/2.5 Ml Soln, 0.5 MG INH QID, (Reported) MAY MIX WITH LEVALBUTEROL Lacosamide (Vimpat) 10 Mg/Ml Caroline, 5 ML GT QAM, (Reported) Lacosamide (Vimpat) 10 Mg/Ml Caroline, 7.5 ML GT QHS, (Reported) Levalbuterol Hydrochloride (Levalbuterol HCl) 1.25 Mg/3 Ml Neb, 1.25 MG INH QID, (Reported) MAY MIX WITH IPRATROPIUM Levetiracetam (Keppra Oral Solution) 500 Mg/5 Ml Caroline, 500 MG GT BID, (Reported) Minocycline HCl (Minocycline HCl) 50 Mg Cap, 50 MG GT QHS, (Reported) Multivitamins Drops *[facility]C STOCKED* (Poly--Caroline Drops *[facility] STOCKED*) 50 Ml Soln, 1 ML GT QHS, (Reported) Nystatin (Nystatin Powder) 100,000 Unit/Gm Pow, 1 DOSE TOP BID, (Reported) APPLIED TO GROIN AREA Polyethylene Glycol (Miralax) 1 Pow Pow, 17 GM GT QPM, (Reported) Ranitidine HCl (Ranitidine HCl) 150 Mg Tab, 1 TAB GT BID, (Reported) CRUSHED: AM, HS Rivaroxaban (Xarelto) 20 Mg Tab, 20 MG GT QHS, (Reported) CRUSH Wheat Dextrin (Benefiber) 1 Pow Pow, 1 POW GT TID, (Reported) AM, NOON, HS: MIXED WITH 60CC WATER [Scopolamine 1.5MG] , 1 PATCH TOP Q3RD, (Reported) ALTERNATES EARS WITH EACH PATCH EVERY 3RD NIGHT: BEHIND RIGHT EAR WAS LAST DOSE Scheduled PRN (Zaditor) 0.025 % Thom, 1 DROP OU BID PRN for ALLERGIES, (Reported) Bisacodyl (Dulcolax) 10 Mg Sup, 10 MG KS ASDIRECTED PRN for CONSTIPATION, (Reported) USE AT QHS ON DAY 5 WITH NO BM Docusate Sodium (Docusate Sodium) 50 Mg/5 Ml Liq, 150 MG PO ASDIRECTED PRN for CONSTIPATION, (Reported) BID IF NO BM IN MORE THAN 2 DAYS. REPEAT IF NO BM MORE THAN 3 DAYS Guaifenesin (Mucinex Chest Congestion) 100 Mg/5 Ml Liq, 10 ML PO Q4H PRN for CONGESTION, (Reported) Ipratropium [place] (Ipratropium [place]) 0.5 Mg/2.5 Ml Soln, 0.5 MG INH Q2H PRN for SHORTNESS OF BREATH, (Reported) Levalbuterol Hydrochloride (Levalbuterol HCl) 1.25 Mg/3 Ml Neb, 1.25 MG INH Q2H PRN for SHORTNESS OF BREATH, (Reported) Allergies Coded Allergies: Clarithromycin (Verified Allergy, Intermediate, INCREASED TEGRETOL LEVEL, RASH, 06/29/18) Clavulanic Acid (Verified Allergy, Intermediate, RASH, 06/29/18) Corticotropin (Verified Allergy, Intermediate, RASH, 06/29/18) Lamotrigine (Verified Allergy, Intermediate, BLISTERS ON SKIN, RASH, 06/29/18) Penicillins (Verified Allergy, Intermediate, RASH, 06/29/18) Amoxicillin (Verified Allergy, Unknown, 06/29/18) Grapefruit (Verified Allergy, Unknown, 06/29/18) Haemophilus Influenza Vaccines (Verified Allergy, Unknown, 06/29/18) Tetanus Toxoid (Verified Allergy, Unknown, 06/29/18) Yuki Flores [facility] Jul 05, 2018 09:32
[2018-07-05 10:00] VITALS: BP 136/71
[2018-07-05] MEDS: LACOSAMIDE 50 MG TAB (VIMPAT) GT SCH (10:10)
[2018-07-05] MEDS: raNITIdine SYRUP 150 MG/10 ML UDC GT SCH (10:10)
[2018-07-05] MEDS: CYPROHEPTADINE 4 MG TAB GT SCH (10:10)
[2018-07-05] MEDS: CALCIUM CARB SUSP 1250MG/5ML UNIT DOSE CUP GT SCH (10:14)
[2018-07-05] MEDS: CLORAZEPATE 3.75 MG TAB GT SCH (10:14)
[2018-07-05] MEDS: CLINDAMYCIN TOP 1% SOLN 60 ML BTL TOP SCH (10:26)
[2018-07-05] MEDS: [UNRECOGNIZED DRUG - OTHER] TOP SCH (10:27)
[2018-07-05] MEDS: BENZOYL PEROXIDE 10% TOP SCH (10:27)
[2018-07-05] MEDS: NYSTATIN 100,000 UNITS/GM TOPICAL PWD 15 GM TOP SCH (10:27)
[2018-07-05 10:50] VITALS: BP 124/77
[2018-07-05] MEDS: levETIRAcetam ORAL SOLUTION 500 MG/5 ML UDC GT SCH (10:53)
--- NOTE | 2018-07-07 10:28 | IPN ---
DATE: 07/04/2018 Klaudia is seen on [facility]. She has aspiration pneumonia. PHYSICAL EAM: VITAL SIGNS: Stable. yesterday . CBC sodium . IMPRESSION: She seems to be getting better. just yesterday discharge is probably .
== END 2018-07-05 13:42 | disposition home or self-care (01) | DRG 137 ==
LOC: M ED 20:54 → M ED INP 23:48 → M ICU 06-30 01:32 → M PCU 07-01 07:34 → M MSPAV 07-02 20:43
PROVIDERS: ADMIT Internal Medicine; ATTEND Family Medicine
DX: J69.0 Pneumonitis due to inhalation of food and vomit (principal); E87.0 Hyperosmolality and hypernatremia; G80.0 Spastic quadriplegic cerebral palsy; Z93.1 Gastrostomy status; G40.909 Epilepsy, unspecified, not intractable, without status epilepticus; R09.02 Hypoxemia; K21.9 Gastro-esophageal reflux disease without esophagitis; R68.0 Hypothermia, not associated with low environmental temperature; Z79.899 Other long term (current) drug therapy; Z88.8 Allergy status to other drugs, medicaments and biological substances; Z88.0 Allergy status to penicillin; Z91.018 Allergy to other foods; Z88.7 Allergy status to serum and vaccine

== ENCOUNTER 2018-08-02 06:43 | Inpatient (IN) | payer MEDICAID ==
[~2018-08-02] VITALS: Ht 144.8 cm; Wt 69.0 kg
[~2018-08-02 06:43] MED LIST changes: +DOCU5LIQ PO; +LEVA1.2525 INH; -LEVA1.256 INH; +SCOPOLAMINE 1.5 MG TOP
[2018-08-02] MEDS ORDERED: LEVALBUTEROL 1.25 MG/0.5 ML CONCENTRATE NEB NEB ONE (07:15)
[2018-08-02] MEDS ORDERED: IPRATROPIUM 0.02% SOLN 0.5MG/2.5 ML NEB NEB ONE (07:15)
[2018-08-02] MEDS ORDERED: NS 500 ML IV ONE (08:00)
[2018-08-02 08:30] LABS: INFLUENZA A AMPLIFICATION NEGATIVE (NEGATIVE); INFLUENZA B AMPLIFICATION NEGATIVE (NEGATIVE)
[2018-08-02 08:57] LABS: BASO % 0.3 % (0.0-1.0); EOS % 0.3 % (0.0-3.0); HEMATOCRIT 37.3 % (36.0-47.0); LYMPH # 2.8 10^3/uL (1.5-4.5); LYMPH % 24.4 % (24.0-44.0); MEAN CORPUSCULAR HEMOGLOBIN 32.2 pg (27.0-33.0); MEAN CORPUSCULAR HGB CONC 32.2 g/dl (32.0-36.5); MONO % 19.5 % (0.0-5.0); NEUTROPHILS # 6.4 10^3/uL (1.8-7.7); PLATELET COUNT, AUTOMATED 437 10^3/uL (150-450); RED BLOOD COUNT 3.73 10^6/uL (4.00-5.40); WHITE BLOOD COUNT 11.6 10^3/uL (4.0-10.0)
[2018-08-02] MEDS ORDERED: ENOXAPARIN 30 MG/0.3 ML SYR (J1650) SC SCH (09:00)
--- NOTE | 2018-08-02 09:16 | REP ---
Clinical: Fever and shortness of breath. Comparison: 06/29/2018. Findings: Significant opacification of the left hemithorax along with right perihilar and right basilar increased markings are again identified which are in part due to positioning and rotation along with underlying cardiomegaly. Superimposed interstitial edema including left lower lobe atelectasis and possible effusion cannot be excluded. No pneumothorax. Skeletal structures are stable. Impression: Findings suggest chronic changes including cardiomegaly. Superimposed left lower lobe consolidation and effusion along with interstitial edema cannot be excluded. Electronically Signed by Mac Montes MD 08/02/2018 09:07 A
[2018-08-02 09:31] LABS: ALBUMIN 2.5 GM/DL (3.2-5.2); ALT/SGPT 74 U/L (12-78); BILIRUBIN,DIRECT 0.3 MG/DL (0.0-0.2); BILIRUBIN,TOTAL 0.6 MG/DL (0.2-1.0); BLOOD UREA NITROGEN 21 MG/DL (7-18); CALCIUM LEVEL 8.9 MG/DL (8.5-10.1); CARBON DIOXIDE LEVEL 26 MEQ/L (21-32); CHLORIDE LEVEL 99 MEQ/L (98-107); CREATININE FOR GFR 0.57 MG/DL (0.55-1.30); GLOMERULAR FILTRATION RATE > 60.0 (>60); GLUCOSE, FASTING 128 MG/DL (70-100); SODIUM LEVEL 135 MEQ/L (136-145)
[2018-08-02 09:35] LABS: APPEARANCE, URINE CLEAR (CLEAR); BACTERIA, URINE AUTO NEGATIVE (NEGATIVE); BILIRUBIN, URINE AUTO NEGATIVE (NEGATIVE); BLOOD, URINE BLOOD 1+ (NEGATIVE); COLOR, URINE STRAW (YELLOW); GLUCOSE, URINE (UA) AUTO NEGATIVE (NEGATIVE); KETONE, URINE AUTO NEGATIVE (NEGATIVE); LEUKOCYTE ESTERASE, URINE AUTO NEGATIVE (NEGATIVE); NITRITE, URINE AUTO NEGATIVE (NEGATIVE); PROTEIN, URINE AUTO NEGATIVE (NEGATIVE); RBC, URINE AUTO 2 /HPF (0-3); SPECIFIC GRAVITY URINE AUTO 1.002 (1.002-1.035); SQUAMOUS EPITHELIAL CELL UR AU 0 /HPF (0-6); UROBILINOGEN, URINE AUTO 0.2 mg/dL (0.0-2.0); WBC, URINE AUTO 1 /HPF (0-3)
[2018-08-02 09:46] LABS: MONO # 2.3 10^3/uL (0.0-0.8)
[2018-08-02] MEDS ORDERED: MEROPENEM INJ 1 GM in APPROPRIATE DILUENT 1 EA IV ONE (10:30)
[2018-08-02] MEDS ORDERED: VITADRO4 PO (10:48)
[2018-08-02] MEDS ORDERED: IPRATROPIUM 0.02% SOLN 0.5MG/2.5 ML NEB INH PRN (11:00)
[2018-08-02] MEDS ORDERED: guaiFENesin SYRUP 200 MG/10 ML UDC GT PRN (11:00)
[2018-08-02] MEDS ORDERED: DOCUSATE SOD LIQ 100MG/10ML UDC GT PRN (11:00)
[2018-08-02] MEDS ORDERED: LEVALBUTEROL 1.25 MG/0.5 ML CONCENTRATE NEB INH PRN (11:00)
[2018-08-02] MEDS ORDERED: BISACODYL 10 MG SUPP PR PRN (11:00)
[2018-08-02] MEDS ORDERED: ENTER DRUG NAME HERE (PATIENT'S OWN MED) OU PRN (11:00)
[2018-08-02] MEDS: NS 1,000 ML IV SCH ×2 (11:41→23:03)
--- NOTE | 2018-08-02 11:42 | HPE ---
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 Caregiver at bedside notes increased suctioning over the weekend and increased lethargy. The patient had a temperature of 98.8 in the evening last evening and then woke today with a temperature of 101.8 which necessitated presentation to the emergency department. The patient had a white blood cell count of 11,000, hemoglobin and hematocrit of 12 and 37, platelets stable at 437. BMP showed hyponatremia with a sodium of 135. Electrolytes were stable. Nonfasting glucose of 128. Liver function tests (LFTs) show an AST of 83, ALT 74, alkaline phosphatase 324. Chest x-ray was completed. Positive for chronic changes, including cardiomegaly, superimposed left lower lobe consolidation and effusion, along with interstitial edema cannot be excluded. Urine culture and blood cultures are pending. Influenza A and B negative. PAST MEDICAL HISTORY: Significant for: 1. Spastic cerebral palsy with quadriparesis. 2. Mental retardation. 3. Seizure disorder. 4. Chronic hypothermia. 5. Osteopenia. 6. Chronically elevated LFT. 7. History of recurrent UTI. 8. History of recurrent aspiration pneumonia. 9. Acneiform dermatitis. 10. Seizure disorder. PAST SURGICAL HISTORY: The patient has: 1. Gastrostomy tube (G-tube) placement in 1991. 2. Armenian SUSAN gastrojejunostomy (GJ) tube placed in 2014 and has been routinely changed through interventional radiology. SOCIAL HISTORY: She is a resident of [facility]. Parents are her legal guardians. Nonsmoker. No recreational drug use. FAMILY HISTORY: Parents are living. Father with dyslipidemia. Mother with ulcerative colitis. ALLERGIES: Include AMOXICILLIN, CLARITHROMYCIN, CLAVULANIC ACID, CORTICOTROPIN, GRAPEFRUIT, HAEMOPHILUS INFLUENZAE VACCINE, LAMOTRIGINE, PENICILLIN, TETANUS TOXOID. REVIEW OF SYSTEMS: Unable to obtain secondary to the patient's mental status. The caregiver has provided history, as well as statements presented in the history of present illness (HPI) which are consistent with a cough, increased sputum production, fever, and fatigue. It is noted that she has had normal bowel movements, and elimination has not been a concern. CURRENT MEDICATIONS: Include: - benzoyl peroxide wash one dose externally twice a day - Dulcolax 10 mg suppository as needed constipation - calcium carbonate 1250 mg via gastrostomy tube (G-tube) twice a day - cetirizine 10 mg tablet via G-tube nightly - clindamycin phosphate gel apply to face, underarms, and behind ears - Tranxene T 7.5 mg via G-tube twice a day - cyproheptadine 4 mg tablet two via G-tube three times a day - Colace 150 mg as directed as needed constipation - guaifenesin 100 mg/5 mL two teaspoons by mouth every 4 hours as needed for congestion - Hibiclens one dose topically nightly behind ears and armpits daily - ipratropium bromide nebulizer four times a day - ipratropium bromide nebulizer every 2 as needed shortness of breath - Jevity 1.5 Cedric can (she takes two each evening) - Vimpat 5 mL via G-tube every morning - Vimpat 7.5 mL via G-tube nightly - Xopenex 1.25 mg four times a day - Xopenex every 2 hours as needed for shortness of breath - Keppra 500 mg via G-tube twice a day - minocycline 50 mg via G-tube nightly - multivitamin 1 mL via G-tube nightly - Nystatin one dose topically twice a day applied to groin area - MiraLAX 17 grams via G-tube each evening - ProMod 60 mL via G-tube nightly - ranitidine 150 mg tablet crushed via G-tube twice a day - Xarelto 20 mg via G-tube nightly - vitamin D 400 units/mL 5 mL via G-tube nightly - wheat dextrin (better known as Benefiber) one scoop of powder via G-tube three times a day mixed with 60 mL of water - Zaditor eyedrops one drop both eyes (OU) twice a day - scopolamine patch apply every 3 days On physical examination today, when I walked in the room, the patient's eyes were open. She is responsive by following me with her eyes throughout the room. The patient is nonverbal at baseline. Most recent vital signs show blood pressure of 129/80, oxygen saturation 100% on 2 liters nasal cannula, respiratory rate of 23, heart rate of 104. Most recent temperature is 98.7 at 0700 this morning. HEENT: Neck is supple without lymphadenopathy or jugular venous distention (JVD). Cardiovascular: Heart regular rate and rhythm are regular. Pulmonary: Lungs are diminished bibasilar. Abdomen: Is soft and nontender with positive bowel sounds times all four quadrant. Bilateral lower extremities are without any severe edema. Positive pedal pulses and good capillary refill is noted. ASSESSMENT: 1. Left lower lobe pneumonia, most likely secondary to aspiration. The patient will be placed on meropenem. We will continue with ipratropium and levalbuterol nebulizers. The patient will be monitored as far as her oxygenation routinely. Vital signs every 8 hours. 2. Spastic quadriparesis. The patient is bed bound. Turning and positioning every 2 hours, as well as monitoring for any signs of skin breakdown. 3. Seizure disorder. The patient's Vimpat will be continued. 4. Chronic constipation. The patient's bowel medications will be continued. 5. Hypothermia. The patient's temperature normally runs around the 94 range. We will monitor her temperatures for signs of worsening infection. 6. Acne. The patient's skin care regimen will be continued while she is inpatient. The patient's tube feeds will continue. We will hold them today until we are sure that she is not actually aspirating. Most likely will resume in the a.m. I anticipate at least two midnights of inpatient stay. The patient's case and condition was discussed with Dr. Luis Eduardo Gomes, attending physician. Edited 08/02/2018 aml
[2018-08-02] MEDS: IPRATROPIUM 0.02% SOLN 0.5MG/2.5 ML NEB INH SCH ×3 (12:00→19:44)
[2018-08-02] MEDS: LEVALBUTEROL 1.25 MG/0.5 ML CONCENTRATE NEB INH SCH ×3 (12:00→19:45)
[2018-08-02 15:15] VITALS: BP_SYST 123; BP_SYST 128; BP_DIAS 86
[2018-08-02] MEDS ORDERED: BENEFIBER GT SCH (16:00)
[2018-08-02] MEDS: CYPROHEPTADINE 4 MG TAB GT SCH ×2 (16:22→21:24)
[2018-08-02] MEDS ORDERED: ENTER DRUG NAME HERE (PATIENT'S OWN MED) GT SCH ×2 (21:00)
[2018-08-02] MEDS ORDERED: PILL CRUSHER/CUTTER 1 EACH XX PRN (21:00)
[2018-08-02] MEDS ORDERED: ENTER DRUG NAME HERE (PATIENT'S OWN MED) TOP SCH (21:00)
[2018-08-02] MEDS ORDERED: MULTIVITAMINS LIQ DROPS 50 ML BTL GT SCH (21:00)
[2018-08-02] MEDS: BENZOYL PEROXIDE 10% TOP SCH (21:21)
[2018-08-02] MEDS: levETIRAcetam ORAL SOLUTION 500 MG/5 ML UDC GT SCH (21:22)
[2018-08-02] MEDS: CLINDAMYCIN PHOSPHATE 1% TOP SCH (21:22)
[2018-08-02] MEDS: LACOSAMIDE 50 MG TAB (VIMPAT) GT SCH (21:23)
[2018-08-02] MEDS: NYSTATIN 100,000 UNITS/GM TOPICAL PWD 15 GM TOP SCH (21:23)
[2018-08-02] MEDS: CALCIUM CARB SUSP 1250MG/5ML UNIT DOSE CUP GT SCH (21:23)
[2018-08-02] MEDS: MULTIVITAMINS LIQ DROPS 50 ML BTL GT SCH (21:24)
[2018-08-02] MEDS: MIRALAX *UNIT DOSE* 17GM PACKET GT SCH (21:24)
[2018-08-02] MEDS: CLORAZEPATE 3.75 MG TAB GT SCH (21:24)
[2018-08-02] MEDS: MINOCYCLINE 50 MG CAP GT SCH (21:24)
[2018-08-02] MEDS: CETIRIZINE (ZyrTEC) 10 MG TAB GT SCH (21:25)
[2018-08-02] MEDS: VITAMIN D 1,000 INTERNATIONAL UNITS TABLET GT SCH (21:25)
[2018-08-02] MEDS: RIVAROXABAN 20 MG TAB (XARELTO) GT SCH (21:25)
[2018-08-02] MEDS: SCOPOLAMINE 1MG TRANSDERMAL PATCH TOP SCH (21:25)
[2018-08-02 22:00] VITALS: BP 102/74
[2018-08-03 06:00] VITALS: BP 132/83
[2018-08-03 07:16] LABS: BASO % 0.3 % (0.0-1.0); EOS # 0.1 10^3/uL (0.0-0.50); EOS % 0.7 % (0.0-3.0); HEMATOCRIT 34.5 % (36.0-47.0); HEMOGLOBIN 11.2 g/dl (12.0-15.5); LYMPH # 2.2 10^3/uL (1.5-4.5); LYMPH % 20.6 % (24.0-44.0); MEAN CORPUSCULAR HEMOGLOBIN 32.1 pg (27.0-33.0); MEAN CORPUSCULAR HGB CONC 32.5 g/dl (32.0-36.5); MEAN CORPUSCULAR VOLUME 98.9 fl (80.0-96.0); MONO # 1.9 10^3/uL (0.0-0.8); MONO % 18.3 % (0.0-5.0); NEUTROPHILS # 6.3 10^3/uL (1.8-7.7); NEUTROPHILS % 59.7 % (36.0-66.0); PLATELET COUNT, AUTOMATED 453 10^3/uL (150-450); RED BLOOD COUNT 3.49 10^6/uL (4.00-5.40); WHITE BLOOD COUNT 10.6 10^3/uL (4.0-10.0)
[2018-08-03 07:40] LABS: ALBUMIN 2.4 GM/DL (3.2-5.2); ALT/SGPT 54 U/L (12-78); BILIRUBIN,TOTAL 0.6 MG/DL (0.2-1.0); BLOOD UREA NITROGEN 15 MG/DL (7-18); CALCIUM LEVEL 8.2 MG/DL (8.5-10.1); CARBON DIOXIDE LEVEL 23 MEQ/L (21-32); CHLORIDE LEVEL 106 MEQ/L (98-107); CREATININE FOR GFR 0.46 MG/DL (0.55-1.30); GLOMERULAR FILTRATION RATE > 60.0 (>60); GLUCOSE, FASTING 117 MG/DL (70-100); MAGNESIUM LEVEL 2.1 MG/DL (1.8-2.4); POTASSIUM SERUM 4.1 MEQ/L (3.5-5.1); SODIUM LEVEL 140 MEQ/L (136-145); TOTAL PROTEIN 6.5 GM/DL (6.4-8.2)
[2018-08-03] MEDS: NS 1,000 ML IV SCH (07:54)
[2018-08-03] MEDS: LEVALBUTEROL 1.25 MG/0.5 ML CONCENTRATE NEB INH SCH ×4 (08:27→21:54)
[2018-08-03 08:28] VITALS: O2SAT 97
[2018-08-03] MEDS: IPRATROPIUM 0.02% SOLN 0.5MG/2.5 ML NEB INH SCH ×4 (08:28→21:53)
[2018-08-03] MEDS: CALCIUM CARB SUSP 1250MG/5ML UNIT DOSE CUP GT SCH ×2 (08:34→21:57)
[2018-08-03] MEDS: CYPROHEPTADINE 4 MG TAB GT SCH ×3 (08:34→21:57)
[2018-08-03] MEDS: levETIRAcetam ORAL SOLUTION 500 MG/5 ML UDC GT SCH ×2 (08:34→21:57)
[2018-08-03] MEDS: LACOSAMIDE 50 MG TAB (VIMPAT) GT SCH ×2 (08:35→21:56)
[2018-08-03] MEDS: CLORAZEPATE 3.75 MG TAB GT SCH ×2 (08:35→21:56)
[2018-08-03] MEDS: CLINDAMYCIN PHOSPHATE 1% TOP SCH ×2 (08:36→21:58)
[2018-08-03] MEDS: NYSTATIN 100,000 UNITS/GM TOPICAL PWD 15 GM TOP SCH ×2 (08:37→21:59)
[2018-08-03] MEDS: BENZOYL PEROXIDE 10% TOP SCH ×2 (08:37→21:58)
--- NOTE | 2018-08-03 10:07 | IPNPDOC ---
Subjective Date Seen The patient was seen on 08/03/18. Subjective Chief Complaint/HPI pneumonia Events since last encounter Tolerating IVF. Has continued with elevated temps. normally [id number] range. + urinary retention overnight. catheterized for 600 cc of dark urine. Urine culture negative. Bld cxs remain pending. General: Reports: ROS Unobtainable Objective Physical Examination General Exam: Positive: Alert, No Acute Distress Neck Exam: Positive: Supple Chest Exam: Positive: Diminished (bibasilar) Heart Exam: Positive: Rate Normal, Regular Rhythm, Normal S1, Normal S2; Negative: Murmurs, Rubs Abdomen Exam: Positive: Normal bowel sounds, Soft; Negative: Tenderness, Hepatospenomegaly Extremity Exam: Positive: Normal pulses; Negative: Cyanosis, Edema Psych Exam: Positive: Mental status NL, Mood NL, Oriented x 3 Assessment /Plan Problems (1) Pneumonia Status: Acute Problem Text: Meropenem day #2. Wean oxygen to keep sats above 90%. Suction prn. (2) Fever Status: Acute Problem Text: monitor. prn anti-pyretic (3) Hypothermia Onset Date: 01/30/2014 Status: Chronic (4) Feeding by G-tube Status: Chronic Problem Text: resume TF tonight. no residuals. (5) CP (cerebral palsy), spastic, quadriplegic Status: Chronic (6) Profound mental retardation Status: Chronic (7) Anoxic encephalopathy syndrome Status: Chronic (8) Seizure disorder Onset Date: 01/30/2014 Status: Chronic Plan/VTE VTE Prophylaxis Ordered?: Yes VS, I&O, [facility] Vital Signs/I&O Vital Signs Date Time Temp Pulse Resp B/P (MAP) Pulse Ox O2 Delivery O2 Flow Rate FiO2 08/03/18 09:12 Nasal Cannula 2.0 08/03/18 08:28 97 08/03/18 08:26 80 08/03/18 06:00 99.3 18 132/83 (99) I&O- Last 24 Hours up to 6 AM 08/03/18 06:00 Intake Total 750 ml Output Total 35 ml Balance 715 ml Laboratory Data 24H LABS Laboratory Tests 2 08/03/18 07:05: Immature Granulocyte % (Auto) 0.4, White Blood Count 10.6H, Red Blood Count 3.49L, Hemoglobin 11.2L, Hematocrit 34.5L, Mean Corpuscular Volume 98.9H, Mean Corpuscular Hemoglobin 32.1, Mean Corpuscular Hemoglobin Concent 32.5, Red Cell Distribution Width 15.6H, Platelet Count 453H, Neutrophils (%) (Auto) 59.7, Ly mphocytes (%) (Auto) 20.6L, Monocytes (%) (Auto) 18.3H, Eosinophils (%) (Auto) 0.7, Basophils (%) (Auto) 0.3, Neutrophils # (Auto) 6.3, Lymphocytes # (Auto) 2.2, Monocytes # (Auto) 1.9H, Eosinophils # (Auto) 0.1, Basophils # (Auto) 0.0, Nucleated Red Blood Cells % (auto) 0.0, Anion Gap 11, Glomerular Filtration Rate > 60.0, Blood Urea Nitrogen 15, Creatinine 0.46L, Sodium Level 140, Potassium Level 4.1, Chloride Level 106, Carbon Dioxide Level 23, Calcium Level 8.2L, Aspartate Amino Transf (AST/SGOT) 46H, Alanine Aminotransferase (ALT/SGPT) 54, Alkaline Phosphatase 269H, Total Bilirubin 0.6, Total Protein 6.5, Albumin 2.4L, Magnesium Level 2.1, Albumin/Globulin Ratio 0.59L CBC/BMP Laboratory Tests 08/03/18 07:05 Red Blood Count 3.49 L, Mean Corpuscular Volume 98.9 H, Mean Corpuscular Hemoglobin 32.1, Mean Corpuscular Hemoglobin Concent 32.5, Red Cell Distribution Width 15.6 H, Neutrophils (%) (Auto) 59.7, Lymphocytes (%) (Auto) 20.6 L, Monocytes (%) (Auto) 18.3 H, Eosinophils (%) (Auto) 0.7, Basophils (%) (Auto) 0.3, Neutrophils # (Auto) 6.3, Lymphocytes # (Auto) 2.2, Monocytes # (Auto) 1.9 H, Eosinophils # (Auto) 0.1, Basophils # (Auto) 0.0, Calcium Level 8.2 L, Aspartate Amino Transf (AST/SGOT) 46 H, Alanine Aminotransferase (ALT/SGPT) 54, Alkaline Phosphatase 269 H, Total Bilirubin 0.6, Total Protein 6.5, Albumin 2.4 L Microbiology Microbiology 08/02/18 Blood Culture - Preliminary, Resulted No growth after 24 hours . All specim... 08/02/18 Blood Culture - Preliminary, Resulted No growth after 24 hours . All specim... 08/02/18 Urine Culture - Final, Complete Yuki FloresP Aug 03, 2018 10:07
[2018-08-03] MEDS: MEROPENEM INJ 1 GM in APPROPRIATE DILUENT 1 EA IV SCH ×2 (13:16→18:36)
[2018-08-03] MEDS: MULTIVITAMINS LIQ DROPS 50 ML BTL GT SCH (21:57)
[2018-08-03] MEDS: CETIRIZINE (ZyrTEC) 10 MG TAB GT SCH (21:57)
[2018-08-03] MEDS: MINOCYCLINE 50 MG CAP GT SCH (21:57)
[2018-08-03 22:00] VITALS: BP 166/75
[2018-08-03] MEDS: MIRALAX *UNIT DOSE* 17GM PACKET GT SCH (22:00)
[2018-08-03] MEDS: VITAMIN D 1,000 INTERNATIONAL UNITS TABLET GT SCH (22:01)
[2018-08-03] MEDS: RIVAROXABAN 20 MG TAB (XARELTO) GT SCH (22:01)
[2018-08-04] MEDS: MEROPENEM INJ 1 GM in APPROPRIATE DILUENT 1 EA IV SCH ×3 (03:12→17:46)
[2018-08-04] MEDS: NS 1,000 ML IV SCH (03:13)
[2018-08-04 06:00] VITALS: BP 116/76
[2018-08-04] MEDS: LEVALBUTEROL 1.25 MG/0.5 ML CONCENTRATE NEB INH SCH ×4 (08:39→21:04)
[2018-08-04] MEDS: IPRATROPIUM 0.02% SOLN 0.5MG/2.5 ML NEB INH SCH ×4 (08:39→21:04)
[2018-08-04] MEDS: CLORAZEPATE 3.75 MG TAB GT SCH ×2 (09:39→22:25)
[2018-08-04] MEDS: CYPROHEPTADINE 4 MG TAB GT SCH ×3 (09:39→22:25)
[2018-08-04] MEDS: levETIRAcetam ORAL SOLUTION 500 MG/5 ML UDC GT SCH ×2 (09:39→22:24)
[2018-08-04] MEDS: LACOSAMIDE 50 MG TAB (VIMPAT) GT SCH ×2 (09:39→22:28)
[2018-08-04] MEDS: CALCIUM CARB SUSP 1250MG/5ML UNIT DOSE CUP GT SCH ×2 (09:39→22:24)
[2018-08-04] MEDS: CLINDAMYCIN PHOSPHATE 1% TOP SCH ×2 (09:40→22:27)
[2018-08-04] MEDS: NYSTATIN 100,000 UNITS/GM TOPICAL PWD 15 GM TOP SCH ×2 (09:40→22:26)
[2018-08-04] MEDS: BENZOYL PEROXIDE 10% TOP SCH ×2 (09:40→22:27)
--- NOTE | 2018-08-04 09:57 | IPNPDOC ---
Subjective Date Seen The patient was seen on 08/04/18. Subjective Chief Complaint/HPI pneumonia Events since last encounter Tolerating TF well. mildly tachypneic this am. Bl Cx with gram + cocci. On day #3 Meropenem Constitutional: Denies: Chills, Fever, Night Sweats Pulmonary: Reports: Dyspnea; Denies: Cough Cardiovascular: Denies: Chest Pain, Palpitations, Orthopnea, Paroxysmal Noc. Dyspnea, Lt Headedness Objective Physical Examination General Exam: Positive: Alert, No Acute Distress Neck Exam: Positive: Supple Chest Exam: Positive: Rales (bibasilar) Heart Exam: Positive: Rate Normal, Regular Rhythm, Normal S1, Normal S2; Negative: Murmurs, Rubs Abdomen Exam: Positive: Normal bowel sounds, Soft; Negative: Tenderness, Hepatospenomegaly Extremity Exam: Positive: Edema, Normal pulses; Negative: Cyanosis Psych Exam: Positive: Mental status NL, Mood NL, Oriented x 3 Assessment /Plan Problems (1) Pneumonia Status: Acute Problem Text: Meropenem day #3. Oxygen weaned to keep sats above 90%. Suction prn. mildly volume overloaded today. Will give Lasix 40 mg x 1 (2) Fever Status: Acute Problem Text: monitor. prn anti-pyretic (3) Hypothermia Onset Date: 01/30/2014 Status: Chronic (4) Feeding by G-tube Status: Chronic Problem Text: resume TF tonight. no residuals. (5) CP (cerebral palsy), spastic, quadriplegic Status: Chronic (6) Profound mental retardation Status: Chronic (7) Anoxic encephalopathy syndrome Status: Chronic (8) Seizure disorder Onset Date: 01/30/2014 Status: Chronic Plan/VTE VTE Prophylaxis Ordered?: Yes VS, I&O, 24H, Fishbone Vital Signs/I&O Vital Signs Date Time Temp Pulse Resp B/P (MAP) Pulse Ox O2 Delivery O2 Flow Rate FiO2 08/04/18 06:00 98.7 97 18 116/76 (89) 96 Room Air 08/03/18 09:12 2.0 I&O- Last 24 Hours up to 6 AM 08/04/18 05:59 Intake Total 1990 ml Output Total 1000 ml Balance 990 ml Laboratory Data Microbiology Microbiology 08/02/18 Blood Culture - Preliminary, Resulted 08/02/18 Blood Culture - Preliminary, Resulted No Growth after 48 hours. All Specime... 08/02/18 Urine Culture - Final, Complete Yuki Flores [employer] Aug 04, 2018 09:57
[2018-08-04] MEDS ORDERED: FUROSEMIDE 40 MG/4 ML VIAL (J1940) IV ONE (10:00)
[2018-08-04 22:00] VITALS: BP 129/67
[2018-08-04] MEDS: MINOCYCLINE 50 MG CAP GT SCH (22:24)
[2018-08-04] MEDS: MIRALAX *UNIT DOSE* 17GM PACKET GT SCH (22:24)
[2018-08-04] MEDS: RIVAROXABAN 20 MG TAB (XARELTO) GT SCH (22:25)
[2018-08-04] MEDS: CETIRIZINE (ZyrTEC) 10 MG TAB GT SCH (22:25)
[2018-08-04] MEDS: VITAMIN D 1,000 INTERNATIONAL UNITS TABLET GT SCH (22:26)
[2018-08-04] MEDS: MULTIVITAMINS LIQ DROPS 50 ML BTL GT SCH (22:28)
[2018-08-05] MEDS: MEROPENEM INJ 1 GM in APPROPRIATE DILUENT 1 EA IV SCH ×3 (03:29→18:31)
[2018-08-05 06:00] VITALS: BP 118/65
[2018-08-05 06:59] LABS: BASO % 0.4 % (0.0-1.0); EOS # 0.3 10^3/uL (0.0-0.50); EOS % 4.8 % (0.0-3.0); HEMATOCRIT 33.4 % (36.0-47.0); HEMOGLOBIN 10.7 g/dl (12.0-15.5); LYMPH # 1.3 10^3/uL (1.5-4.5); LYMPH % 19.2 % (24.0-44.0); MEAN CORPUSCULAR HEMOGLOBIN 31.7 pg (27.0-33.0); MEAN CORPUSCULAR VOLUME 98.8 fl (80.0-96.0); MONO # 1.3 10^3/uL (0.0-0.8); MONO % 18.1 % (0.0-5.0); NEUTROPHILS % 57.4 % (36.0-66.0); PLATELET COUNT, AUTOMATED 460 10^3/uL (150-450); RED BLOOD COUNT 3.38 10^6/uL (4.00-5.40); WHITE BLOOD COUNT 6.9 10^3/uL (4.0-10.0)
[2018-08-05 07:17] LABS: BLOOD UREA NITROGEN 15 MG/DL (7-18); CALCIUM LEVEL 8.1 MG/DL (8.5-10.1); CARBON DIOXIDE LEVEL 29 MEQ/L (21-32); CHLORIDE LEVEL 107 MEQ/L (98-107); CREATININE FOR GFR 0.36 MG/DL (0.55-1.30); GLOMERULAR FILTRATION RATE > 60.0 (>60); GLUCOSE, FASTING 95 MG/DL (70-100); POTASSIUM SERUM 3.2 MEQ/L (3.5-5.1); SODIUM LEVEL 143 MEQ/L (136-145)
[2018-08-05] MEDS: LEVALBUTEROL 1.25 MG/0.5 ML CONCENTRATE NEB INH SCH ×4 (08:19→20:23)
[2018-08-05] MEDS: IPRATROPIUM 0.02% SOLN 0.5MG/2.5 ML NEB INH SCH ×4 (08:19→20:20)
[2018-08-05] MEDS: CALCIUM CARB SUSP 1250MG/5ML UNIT DOSE CUP GT SCH ×2 (09:29→20:57)
[2018-08-05] MEDS: CLORAZEPATE 3.75 MG TAB GT SCH ×2 (09:30→20:58)
[2018-08-05] MEDS: LACOSAMIDE 50 MG TAB (VIMPAT) GT SCH ×2 (09:30→20:57)
[2018-08-05] MEDS: CYPROHEPTADINE 4 MG TAB GT SCH ×3 (09:30→20:58)
[2018-08-05] MEDS: levETIRAcetam ORAL SOLUTION 500 MG/5 ML UDC GT SCH ×2 (09:30→20:57)
[2018-08-05] MEDS: NYSTATIN 100,000 UNITS/GM TOPICAL PWD 15 GM TOP SCH ×2 (09:31→21:00)
[2018-08-05] MEDS: BENZOYL PEROXIDE 10% TOP SCH ×2 (09:31→20:59)
[2018-08-05] MEDS: CLINDAMYCIN PHOSPHATE 1% TOP SCH ×2 (09:32→21:00)
[2018-08-05] MEDS ORDERED: POTASSIUM CHLORIDE 10% LIQ 20 MEQ/15 ML UDC GT ONE (10:15)
--- NOTE | 2018-08-05 10:22 | IPNPDOC ---
Subjective Date Seen The patient was seen on 08/05/18. Subjective Chief Complaint/HPI pneumonia Events since last encounter Weaned off of oxygen, urinating well. Received 1 dose of Lasix yesterday, swelling of hands and legs has resolved. General: Reports: ROS Unobtainable Objective Physical Examination General Exam: Positive: Alert, No Acute Distress Neck Exam: Positive: Supple Chest Exam: Positive: Clear to auscultation, Normal air movement; Negative: Rales Heart Exam: Positive: Rate Normal, Regular Rhythm, Normal S1, Normal S2; Negative: Murmurs, Rubs Abdomen Exam: Positive: Normal bowel sounds, Soft; Negative: Tenderness, Hepatospenomegaly Extremity Exam: Positive: Edema, Normal pulses; Negative: Cyanosis Psych Exam: Positive: Mental status NL, Mood NL, Oriented x 3 Assessment /Plan Problems (1) Pneumonia Status: Acute Problem Text: Meropenem day #4. Oxygen weaned to keep sats above 90%. Suction p rn. 08/04/18: mildly volume overloaded today. Will give Lasix 40 mg x 1 08/05/18: Appears to be back at baseline. Staph epidermidis on bl cx. Ordered repeat. anticipate DC home in am. (2) Fever Status: Acute Problem Text: monitor. prn anti-pyretic (3) Hypothermia Onset Date: 01/30/2014 Status: Chronic (4) Feeding by G-tube Status: Chronic Problem Text: resume TF tonight. no residuals. (5) CP (cerebral palsy), spastic, quadriplegic Status: Chronic (6) Profound mental retardation Status: Chronic (7) Anoxic encephalopathy syndrome Status: Chronic (8) Seizure disorder Onset Date: 01/30/2014 Status: Chronic Plan/VTE VTE Prophylaxis Ordered?: Yes VS, I&O, 24H, Fishbone Vital Signs/I&O Vital Signs Date Time Temp Pulse Resp B/P (MAP) Pulse Ox O2 Delivery O2 Flow Rate FiO2 08/05/18 06:00 98.8 71 19 118/65 (82) 93 08/04/18 06:00 Room Air 08/03/18 09:12 2.0 I&O- Last 24 Hours up to 6 AM 08/05/18 06:00 Intake Total 903 ml Output Total 0 ml Balance 903 ml Laboratory Data 24H LABS Laboratory Tests 2 08/05/18 06:46: Immature Granulocyte % (Auto) 0.1, White Blood Count 6.9, Red Blood Count 3.38L, Hemoglobin 10.7L, Hematocrit 33.4L, Mean Corpuscular Volume 98.8H, Mean Corpuscular Hemoglobin 31.7, Mean Corpuscular Hemoglobin Concent 32.0, Red Cell Distribution Width 15.9H, Platelet Count 460H, Neutrophils (%) (Auto) 57.4, Ly mphocytes (%) (Auto) 19.2L, Monocytes (%) (Auto) 18.1H, Eosinophils (%) (Auto) 4.8H, Basophils (%) (Auto) 0.4, Neutrophils # (Auto) 4.0, Lymphocytes # (Auto) 1.3L, Monocytes # (Auto) 1.3H, Eosinophils # (Auto) 0.3, Basophils # (Auto) 0.0, Nucleated Red Blood Cells % (auto) 0.0, Anion Gap 7L, Glomerular Filtration Rate > 60.0, Blood Urea Nitrogen 15, Creatinine 0.36L, Sodium Level 143, Potassium Le penelope 3.2#L, Chloride Level 107, Carbon Dioxide Level 29, Calcium Level 8.1L CBC/BMP Laboratory Tests 08/05/18 06:46 Red Blood Count 3.38 L, Mean Corpuscular Volume 98.8 H, Mean Corpuscular Hemoglobin 31.7, Mean Corpuscular Hemoglobin Concent 32.0, Red Cell Distribution Width 15.9 H, Neutrophils (%) (Auto) 57.4, Lymphocytes (%) (Auto) 19.2 L, Monocytes (%) (Auto) 18.1 H, Eosinophils (%) (Auto) 4.8 H, Basophils (%) (Auto) 0.4, Neutrophils # (Auto) 4.0, Lymphocytes # (Auto) 1.3 L, Monocytes # (Auto) 1.3 H, Eosinophils # (Auto) 0.3, Basophils # (Auto) 0.0, Calcium Level 8.1 L Microbiology Microbiology 08/05/18 Blood Culture, Received Pending 08/05/18 Blood Culture, Received Pending 08/02/18 Blood Culture - Final, Complete Staphylococcus Epidermidis 08/02/18 Blood Culture - Preliminary, Resulted No Growth after 72 hours. All specime... 08/02/18 Urine Culture - Final, Complete Yuki FloresP Aug 05, 2018 10:22
[2018-08-05 14:00] VITALS: BP 162/93
[2018-08-05] MEDS: MIRALAX *UNIT DOSE* 17GM PACKET GT SCH (20:57)
[2018-08-05] MEDS: RIVAROXABAN 20 MG TAB (XARELTO) GT SCH (20:58)
[2018-08-05] MEDS: CETIRIZINE (ZyrTEC) 10 MG TAB GT SCH (20:58)
[2018-08-05] MEDS: MINOCYCLINE 50 MG CAP GT SCH (20:58)
[2018-08-05] MEDS: VITAMIN D 1,000 INTERNATIONAL UNITS TABLET GT SCH (20:58)
[2018-08-05] MEDS: MULTIVITAMINS LIQ DROPS 50 ML BTL GT SCH (21:02)
[2018-08-05] MEDS: SCOPOLAMINE 1MG TRANSDERMAL PATCH TOP SCH (21:03)
[2018-08-05 22:00] VITALS: BP 128/79
[2018-08-06] MEDS: MEROPENEM INJ 1 GM in APPROPRIATE DILUENT 1 EA IV SCH ×2 (04:12→11:43)
[2018-08-06 06:00] VITALS: BP 132/80
[2018-08-06 06:04] LABS: BASO % 0.5 % (0.0-1.0); EOS # 0.6 10^3/uL (0.0-0.50); EOS % 8.9 % (0.0-3.0); HEMATOCRIT 32.6 % (36.0-47.0); HEMOGLOBIN 10.2 g/dl (12.0-15.5); LYMPH # 1.7 10^3/uL (1.5-4.5); LYMPH % 26.7 % (24.0-44.0); MEAN CORPUSCULAR HEMOGLOBIN 30.9 pg (27.0-33.0); MEAN CORPUSCULAR HGB CONC 31.3 g/dl (32.0-36.5); MEAN CORPUSCULAR VOLUME 98.8 fl (80.0-96.0); MONO # 1.1 10^3/uL (0.0-0.8); MONO % 17.1 % (0.0-5.0); NEUTROPHILS # 2.9 10^3/uL (1.8-7.7); NEUTROPHILS % 46.6 % (36.0-66.0); PLATELET COUNT, AUTOMATED 482 10^3/uL (150-450); WHITE BLOOD COUNT 6.2 10^3/uL (4.0-10.0)
[2018-08-06 06:25] LABS: BLOOD UREA NITROGEN 15 MG/DL (7-18); CALCIUM LEVEL 8.4 MG/DL (8.5-10.1); CARBON DIOXIDE LEVEL 29 MEQ/L (21-32); CHLORIDE LEVEL 109 MEQ/L (98-107); CREATININE FOR GFR 0.34 MG/DL (0.55-1.30); GLOMERULAR FILTRATION RATE > 60.0 (>60); GLUCOSE, FASTING 117 MG/DL (70-100); POTASSIUM SERUM 4.2 MEQ/L (3.5-5.1); SODIUM LEVEL 143 MEQ/L (136-145)
[2018-08-06] MEDS: LEVALBUTEROL 1.25 MG/0.5 ML CONCENTRATE NEB INH SCH ×2 (07:14→11:06)
[2018-08-06] MEDS: IPRATROPIUM 0.02% SOLN 0.5MG/2.5 ML NEB INH SCH ×2 (07:14→11:06)
[2018-08-06] MEDS: levETIRAcetam ORAL SOLUTION 500 MG/5 ML UDC GT SCH (09:42)
[2018-08-06] MEDS: CALCIUM CARB SUSP 1250MG/5ML UNIT DOSE CUP GT SCH (09:42)
[2018-08-06] MEDS: CLORAZEPATE 3.75 MG TAB GT SCH (09:42)
[2018-08-06] MEDS: LACOSAMIDE 50 MG TAB (VIMPAT) GT SCH (09:42)
[2018-08-06] MEDS: NYSTATIN 100,000 UNITS/GM TOPICAL PWD 15 GM TOP SCH (09:43)
[2018-08-06] MEDS: BENZOYL PEROXIDE 10% TOP SCH (09:44)
[2018-08-06] MEDS ORDERED: [UNRECOGNIZED DRUG - OTHER] PEG (10:13)
[2018-08-06] MEDS: CYPROHEPTADINE 4 MG TAB GT SCH (10:30)
[2018-08-06] MEDS: CLINDAMYCIN PHOSPHATE 1% TOP SCH (10:35)
[2018-08-06] MEDS ORDERED: CEFD300CAP PEG (11:26)
--- NOTE | 2018-08-06 12:47 | DSES ---
DATE OF ADMISSION: 08/02/2018 DATE OF DISCHARGE: 08/06/2018 PRIMARY CARE PROVIDER (PCP): Dr. Efrain Lara ATTENDING: Dr. 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 Caregiver was at bedside at time of initial examination and noticed increased suctioning over the weekend and increased lethargy. Her temperature had risen from 98.8 to 101.8 over the weekend and, therefore, they presented to the emergency room for further evaluation. She was admitted for left lower lobe pneumonia, likely secondary to aspiration, started on nebulizers and IV meropenem. Oxygenation was monitored during her hospitalization as well as leukocytosis. She has remained stable. Her oxygen has been able to be tapered. Her leukocytosis has resolved. Her electrolytes have normalized. and her hypokalemia, which she developed during the hospitalization, was addressed. Her routine at-home medications were continued as well as her routine diet. DISCHARGE DIAGNOSES: Include: 1. Presumed aspiration pneumonia. 2. Fever. 3. Hypothermia. 4. Spastic quadriplegia secondary to cerebral palsy. 5. Profound mental retardation. 6. Anoxic encephalopathy. 7. Seizure disorder. DISCHARGE MEDICATIONS: Include: - Omni cap 300 mg one tablet by mouth percutaneous endoscopic gastrostomy (PEG) twice daily times 7 days - benzoyl peroxide wash to her face twice daily - Dulcolax 10 mg per rectum daily as needed for constipation - calcium carbonate 1250 mcg per 5 mL G-tube twice daily - cetirizine 10 mg gastrostomy (G) tube nightly - Clindagel 1% topically to the face twice daily - Tranxene-T 7.5 mg G-tube twice daily - cyproheptadine 4 mg two tablets G-tube three times daily - docusate 50 mg per 5 mL 150 mg daily as needed for constipation - Mucinex 100 mg per 5 mL 10 mL every 4 hours as needed for congestion - Hibiclens topically before bed - ipratropium bromide 0.5 mg per 2.5 mL inhaled four times daily and every 2 hours as needed for shortness of breath - Jevity 1.5 Cedric two cans before bed continuous - Vimpat 10 mg/mL, 5 mL G-tube in the morning and 7.5 mL G-tube in the evening - levalbuterol 1.25 mg inhaled four times daily and every 2 hours as needed for shortness of breath - Keppra 500 mg G-tube twice daily - minocycline 50 mg by mouth G-tube nightly, which can be resumed after completion of antibiotics - multivitamin 1 mL G-tube before bed - nystatin powder topically twice daily as needed for erythematous abdominal skin folds - MiraLAX 17 grams G-tube daily as needed for constipation - ProMod Liquid 60 mL G-tube before bed - ranitidine 150 mg G-tube twice daily - Xarelto 20 mg G-tube at bedtime - scopolamine 1.5 mg patch topically every 3rd day - vitamin D3, 2000 units G-tube nightly - Benefiber powder G-tube three times daily - Zaditor 0.025% each eye twice daily as needed for ocular allergies DISCHARGE PLAN: Will be to followup with her PCP. Activity should be as tolerated. Diet is as above. Edited: chidi 08/08/2018 [id number]
== END 2018-08-06 14:00 | disposition home or self-care (01) | DRG 137 ==
LOC: M ED 06:43 → EDBD 06:43 → M ED INP 10:32 → M MS5PR 14:50
PROVIDERS: ADMIT Family Medicine; ATTEND Family Medicine
DX: J69.0 Pneumonitis due to inhalation of food and vomit (principal); G93.1 Anoxic brain damage, not elsewhere classified; F73 Profound intellectual disabilities; G80.0 Spastic quadriplegic cerebral palsy; Z93.1 Gastrostomy status; R68.0 Hypothermia, not associated with low environmental temperature; D72.829 Elevated white blood cell count, unspecified; E87.6 Hypokalemia; G40.909 Epilepsy, unspecified, not intractable, without status epilepticus; Z79.899 Other long term (current) drug therapy; L30.9 Dermatitis, unspecified

== ENCOUNTER 2018-08-17 06:17 | Inpatient (IN) | payer MEDICAID ==
[~2018-08-17] VITALS: Ht 144.8 cm; Wt 66.3 kg
[2018-08-17] VITALS (26 sets, daily range): BP systolic 123–156; BP diastolic 83–118
[~2018-08-17 06:17] MED LIST changes: -BENZ10LI12 EXT; +BENZ10LI12 TOP; +CEFD300CAP PEG; -DOCU5LIQ PO; -MUCI100L2 PO; +VITADRO4 PO; +[UNRECOGNIZED DRUG - OTHER] PEG
[2018-08-17 07:08] LABS: BASO % 0.4 % (0.0-1.0); EOS # 0.2 10^3/uL (0.0-0.50); HEMATOCRIT 40.2 % (36.0-47.0); HEMOGLOBIN 13.2 g/dl (12.0-15.5); LYMPH # 2.8 10^3/uL (1.5-4.5); MEAN CORPUSCULAR HGB CONC 32.8 g/dl (32.0-36.5); MEAN CORPUSCULAR VOLUME 94.4 fl (80.0-96.0); MONO % 18.1 % (0.0-5.0); NEUTROPHILS # 6.2 10^3/uL (1.8-7.7); NEUTROPHILS % 54.1 % (36.0-66.0); PLATELET COUNT, AUTOMATED 455 10^3/uL (150-450); RED BLOOD COUNT 4.26 10^6/uL (4.00-5.40); WHITE BLOOD COUNT 11.4 10^3/uL (4.0-10.0)
--- NOTE | 2018-08-17 07:46 | REP ---
Portable chest, 06:40 a.m., single AP view, the patient semi upright: Comparison is 08/02/2018. There is complete opacification of the left hemithorax as a progressive change from the comparison study. The mediastinum appears shifted to the right. This may represent a large pleural effusion or combination of pleural effusion and left lung consolidation. Consider follow-up chest CT. Right lung appears clear. There is an old ununited fracture of the right proximal humerus. Impression: Complete opacification of the left hemithorax. Consider follow-up CT. Electronically Signed by Aydin Stevenson MD 08/17/2018 07:37 A
[2018-08-17 07:51] LABS: ALBUMIN 2.3 GM/DL (3.2-5.2); ALT/SGPT 57 U/L (12-78); BILIRUBIN,DIRECT 0.3 MG/DL (0.0-0.2); BILIRUBIN,TOTAL 0.5 MG/DL (0.2-1.0); BLOOD UREA NITROGEN 15 MG/DL (7-18); CALCIUM LEVEL 8.8 MG/DL (8.5-10.1); CARBON DIOXIDE LEVEL 26 MEQ/L (21-32); CHLORIDE LEVEL 102 MEQ/L (98-107); CPK CREATINE PHOSPHOKINASE 34 U/L (26-192); GLOMERULAR FILTRATION RATE > 60.0 (>60); GLUCOSE, FASTING 117 MG/DL (70-100); MB/CK RELATIVE INDEX 2.94 (< OR =4); MONO # 2.1 10^3/uL (0.0-0.8); NT-PRO BNP 847 PG/ML (<125); POTASSIUM SERUM 4.6 MEQ/L (3.5-5.1); SODIUM LEVEL 137 MEQ/L (136-145); TOTAL PROTEIN 7.1 GM/DL (6.4-8.2); TROPONIN I < 0.02 NG/ML (< 0.10)
[2018-08-17] MEDS ORDERED: FUROSEMIDE 40 MG/4 ML VIAL (J1940) IV ONE (08:00)
[2018-08-17] MEDS ORDERED: ENOXAPARIN 40 MG/0.4 ML SYRINGE (J1650) SC SCH (09:00)
--- NOTE | 2018-08-17 10:20 | REP ---
CT of the chest without IV contrast: Comparisons are the CT of 12/27/2017 and the recent plain film portable chest earlier today. There is a large left pleural effusion filling the entire left hemithorax with complete compression atelectasis of the left lung and mediastinal shift to the right compatible with tension pleural effusion. There is a large pericardial effusion maximally measuring 3 cm in depth posteriorly on the left. There is a small right pleural effusion. The mediastinum is distorted but grossly unremarkable. Skeletal structures are unremarkable except for kyphosis. The visualized upper abdomen is grossly unremarkable. Impression: Large left pleural effusion occupying the entire left hemithorax with mediastinal shift to the right compatible with a tension pleural effusion. Small right pleural effusion. Large pericardial effusion. Electronically Signed by Aydin Stevenson MD 08/17/2018 10:11 A
[2018-08-17] MEDS ORDERED: TRAN1.5D2 TD (12:22)
[2018-08-17] MEDS ORDERED: FLUMAZENIL 0.5 MG/5 ML VIAL As Ordered ONE (13:50)
[2018-08-17] MEDS ORDERED: MIDAZOLAM INJ 2 MG/2 ML VIAL (J2250) As Ordered ONE (13:50)
[2018-08-17] MEDS ORDERED: LIDOCAINE 1% MDV 20ML VIAL As Ordered ONE (13:51)
--- NOTE | 2018-08-17 14:54 | REP ---
Portable chest, 02:33 p.m., single AP view, the patient supine: Comparisons are the PA and lateral chest performed earlier today and the and earlier today. There is complete opacification of the left hemithorax with mediastinal shift to the right, unchanged from both prior studies, compatible with large left pleural effusion. On the comparison CT there is a small right pleural effusion and a large pericardial effusion. There are atelectatic changes in the medial right lung. Right lung is otherwise clear. An old ununited fracture of the proximal right humerus is again identified. Impression: No significant interval change from studies earlier today. Electronically Signed by Aydin Stevenson MD 08/17/2018 02:46 P
[2018-08-17] MEDS ORDERED: LEVALBUTEROL 1.25 MG/0.5 ML CONCENTRATE NEB INH PRN (16:30)
[2018-08-17] MEDS ORDERED: IPRATROPIUM 0.02% SOLN 0.5MG/2.5 ML NEB INH PRN (16:30)
[2018-08-17] MEDS ORDERED: BISACODYL 10 MG SUPP PR PRN ×2 (16:30)
[2018-08-17] MEDS ORDERED: LEVALBUTEROL 1.25 MG/0.5 ML CONCENTRATE NEB NEB PRN (16:30)
[2018-08-17] MEDS ORDERED: guaiFENesin SYRUP 200 MG/10 ML UDC GT PRN (16:30)
--- NOTE | 2018-08-17 16:44 | REP ---
Portable chest, 04:06 p.m., single AP view, the patient semi upright: Comparison is the portable chest performed at 02:33 p.m. earlier today. There is a left thoracotomy tube. There is now visualization of lung parenchyma in the left apex. No pneumothorax. There is a left subclavian central venous catheter with the tip in the superior vena cava, unchanged from the comparison study. Right lung is clear. Electronically Signed by Aydin Stevenson MD 08/17/2018 04:35 P
[2018-08-17 16:49] LABS: LDH LACTATE DEHYDROGENASE 271 U/L (84-246)
[2018-08-17 16:59] LABS: ABG BASE EXCESS 4.2 (-2.0-2.0); ABG HCO3 28.9 MEQ/L (22.0-26.0); ABG O2 SATURATION 96.2 % (95.0-99.0); ABG PARTIAL PRESSURE CO2 43.8 mmHg (35.0-45.0); ABG PARTIAL PRESSURE O2 82.8 mmHg (75.0-100.0); ABG STANDARD HCO3 28.2 MEQ/L (22.0-26.0); ABG TOTAL CO2 30.3 MEQ/L (22.0-29.0); ABG pH (ARTERIAL) 7.438 UNITS (7.350-7.450)
--- NOTE | 2018-08-17 16:59 | REP ---
CT of the chest without IV contrast: Comparison is the chest CT performed earlier today. There has been interval placement of a left thoracotomy tube. The previous large left pleural effusion has been almost entirely evacuated. There is atelectasis in the left lung. There is a small left pneumothorax. There is a pericardial effusion measuring 2.7 cm depth posteriorly. This measured 3 cm on the comparison study. There is a small right pleural effusion, unchanged. The atelectasis in the right lung has improved slightly There is a left subclavian central venous catheter with the tip in the superior vena cava as an interval change. There is tubing within bowel loops in the abdomen, possibly a J tube. Electronically Signed by Aydin Stevenson MD 08/17/2018 04:50 P
[2018-08-17 17:48] LABS: SOURCE, BODY FLUID PLEURAL
[2018-08-17 17:49] LABS: APPEARANCE, BODY FLUID CLOTTED (CLEAR); PLEURAL FL COLOR RED (COLORLESS)
[2018-08-17 17:55] LABS: APPEARANCE, BODY FLUID CLOTTED (CLEAR); SOURCE, BODY FLUID OTHER
[2018-08-17] MEDS ORDERED: MIDAZOLAM INJ 2 MG/2 ML VIAL (J2250) IV ONE (18:00)
[2018-08-17] MEDS ORDERED: LIDOCAINE 1% MDV 20ML VIAL SC ONE (18:00)
[2018-08-17 18:03] LABS: SOURCE, BODY FLUID pH PERICARDIAL
[2018-08-17 18:04] LABS: PH BODY FLUID 7.638 UNITS (NOT ESTABLISHED); SOURCE, BODY FLUID pH PLEURAL
[2018-08-17 18:05] LABS: PH BODY FLUID > 7.800 UNITS (NOT ESTABLISHED)
[2018-08-17] MEDS ORDERED: PILL CRUSHER/CUTTER 1 EACH XX PRN (18:15)
[2018-08-17] MEDS: SCOPOLAMINE 1MG TRANSDERMAL PATCH TOP SCH (18:32)
[2018-08-17] MEDS: COLCHICINE 0.6 MG TAB PO SCH (18:32)
[2018-08-17] MEDS: IBUPROFEN 100 MG/5 ML SUSP UDC DYE FREE GT SCH (18:32)
[2018-08-17 18:37] LABS: AMYLASE, BODY FLUID 16 U/L (NOT ESTABLISHED); CHOLESTEROL, BODY FLUID 83 MG/DL (NOT ESTABLISHED); LDH, BODY FLUID 198 U/L (NOT ESTABLISHED); LDH, BODY FLUID 439 U/L (NOT ESTABLISHED); SOURCE, BODY FLUID ALBUMIN PERICARDIAL; SOURCE, BODY FLUID ALBUMIN PLEURAL; SOURCE, BODY FLUID AMYLASE PLEURAL; SOURCE, BODY FLUID CHOL PLEURAL; SOURCE, BODY FLUID GLUCOSE PERICARDIAL; SOURCE, BODY FLUID GLUCOSE PLEURAL; SOURCE, BODY FLUID LDH PERICARDIAL; SOURCE, BODY FLUID LDH PLEURAL; SOURCE, BODY FLUID TOT PROTEIN PERICARDIAL; SOURCE, BODY FLUID TOT PROTEIN PLEURAL; SOURCE, BODY FLUID TRIG PLEURAL; TOTAL PROTEIN, BODY FLUID 4.9 G/DL (NOT ESTABLISHED); TOTAL PROTEIN, BODY FLUID 5.1 G/DL (NOT ESTABLISHED); TRIGLYCERIDE, BODY FLUID 25 MG/DL (NOT ESTABLISHED)
--- NOTE | 2018-08-17 19:06 | ECGEPIP ---
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
[2018-08-17 19:19] LABS: SPEC. GRAVITY BODY FLUIDS 1.031 (NOT ESTABLISHED)
[2018-08-17] MEDS ORDERED: LEVALBUTEROL 1.25 MG/0.5 ML CONCENTRATE NEB INH SCH (20:00)
[2018-08-17] MEDS: LEVALBUTEROL 1.25 MG/0.5 ML CONCENTRATE NEB NEB SCH (20:01)
[2018-08-17] MEDS: CALCIUM CARB SUSP 1250MG/5ML UNIT DOSE CUP GT SCH (20:25)
[2018-08-17] MEDS: CETIRIZINE (ZyrTEC) 10 MG TAB GT SCH (20:25)
[2018-08-17] MEDS: DOCUSATE SODIUM 100 MG CAP PO SCH (20:25)
[2018-08-17] MEDS: MINOCYCLINE 50 MG CAP GT SCH (20:25)
[2018-08-17] MEDS: levETIRAcetam ORAL SOLUTION 500 MG/5 ML UDC GT SCH (20:25)
[2018-08-17] MEDS: CYPROHEPTADINE 4 MG TAB GT SCH (20:25)
[2018-08-17] MEDS: RIVAROXABAN 20 MG TAB (XARELTO) GT SCH (20:25)
[2018-08-17] MEDS: MULTIVITAMINS LIQ DROPS 50 ML BTL GT SCH (20:26)
[2018-08-17] MEDS: CLORAZEPATE 3.75 MG TAB GT SCH (20:26)
[2018-08-17] MEDS: ERGOCALCIFEROL 8000 INTERNATIONAL UNITS/ML ORAL SOLN BTL 60ML GT SCH (20:26)
[2018-08-17] MEDS: LACOSAMIDE 50 MG TAB (VIMPAT) GT SCH (20:26)
[2018-08-17] MEDS: MIRALAX *UNIT DOSE* 17GM PACKET GT SCH (20:26)
[2018-08-17] MEDS: NYSTATIN 100,000 UNITS/GM TOPICAL PWD 15 GM TOP SCH (20:27)
[2018-08-17] MEDS ORDERED: ENTER DRUG NAME HERE (PATIENT'S OWN MED) GT SCH (21:00)
[2018-08-18] VITALS (14 sets, daily range): BP systolic 113–149; BP diastolic 60–95
[2018-08-18] MEDS: IBUPROFEN 100 MG/5 ML SUSP UDC DYE FREE GT SCH ×4 (00:09→17:15)
[2018-08-18] MEDS: ACETAMINOPHEN 650 MG SUPP PR PRN (00:20)
[2018-08-18] MEDS: MORPHINE 4 MG/ML 1ML VIAL/SYRINGE (J2270) IV PRN (00:57)
[2018-08-18] MEDS ORDERED: D5W/0.9% SODIUM CHLORIDE 1,000 ML IV SCH (01:07)
[2018-08-18] MEDS: LEVALBUTEROL 1.25 MG/0.5 ML CONCENTRATE NEB NEB SCH ×4 (01:53→19:44)
[2018-08-18 05:20] LABS: BASO % 0.4 % (0.0-1.0); EOS # 0.1 10^3/uL (0.0-0.50); EOS % 1.8 % (0.0-3.0); HEMATOCRIT 37.2 % (36.0-47.0); HEMOGLOBIN 12.1 g/dl (12.0-15.5); LYMPH # 1.8 10^3/uL (1.5-4.5); LYMPH % 22.2 % (24.0-44.0); MEAN CORPUSCULAR HEMOGLOBIN 30.9 pg (27.0-33.0); MEAN CORPUSCULAR HGB CONC 32.5 g/dl (32.0-36.5); MEAN CORPUSCULAR VOLUME 94.9 fl (80.0-96.0); MONO # 1.1 10^3/uL (0.0-0.8); MONO % 13.5 % (0.0-5.0); NEUTROPHILS % 61.8 % (36.0-66.0); PLATELET COUNT, AUTOMATED 383 10^3/uL (150-450); RED BLOOD COUNT 3.92 10^6/uL (4.00-5.40)
[2018-08-18 05:31] LABS: INR 1.57
[2018-08-18 05:33] LABS: PARTIAL THROMBOPLASTIN TIME 67.7 SECONDS (25.4-37.6)
[2018-08-18 05:52] LABS: ALT/SGPT 53 U/L (12-78); BILIRUBIN,TOTAL 0.5 MG/DL (0.2-1.0); BLOOD UREA NITROGEN 19 MG/DL (7-18); CALCIUM LEVEL 8.5 MG/DL (8.5-10.1); CARBON DIOXIDE LEVEL 31 MEQ/L (21-32); CHLORIDE LEVEL 100 MEQ/L (98-107); GLOMERULAR FILTRATION RATE > 60.0 (>60); GLUCOSE, FASTING 142 MG/DL (70-100); POTASSIUM SERUM 3.2 MEQ/L (3.5-5.1); SODIUM LEVEL 138 MEQ/L (136-145); TOTAL PROTEIN 7.3 GM/DL (6.4-8.2)
[2018-08-18] MEDS ORDERED: KCL 40MEQ IN D5/NS 1000ML 1,000 ML IV SCH (08:00)
[2018-08-18] MEDS: levETIRAcetam ORAL SOLUTION 500 MG/5 ML UDC GT SCH ×2 (08:16→20:30)
[2018-08-18] MEDS: COLCHICINE 0.6 MG TAB PO SCH (08:16)
[2018-08-18] MEDS: LACOSAMIDE 50 MG TAB (VIMPAT) GT SCH ×2 (08:17→20:33)
[2018-08-18] MEDS: CLORAZEPATE 3.75 MG TAB GT SCH ×2 (08:17→20:30)
[2018-08-18] MEDS: CALCIUM CARB SUSP 1250MG/5ML UNIT DOSE CUP GT SCH ×2 (08:17→20:30)
[2018-08-18] MEDS: MOM 30ML SUSPENSION UDC PO SCH (08:17)
[2018-08-18] MEDS: CYPROHEPTADINE 4 MG TAB GT SCH ×3 (08:17→20:30)
[2018-08-18] MEDS: NYSTATIN 100,000 UNITS/GM TOPICAL PWD 15 GM TOP SCH ×2 (08:18→20:33)
[2018-08-18] MEDS: DOCUSATE SODIUM 100 MG CAP PO SCH (08:18)
[2018-08-18] MEDS ORDERED: ENTER DRUG NAME HERE (PATIENT'S OWN MED) GT SCH (09:00)
--- NOTE | 2018-08-18 10:25 | REP ---
Portable chest, 09:57 a.m., single AP view, the patient semi upright: Comparison is 08/17/2018. The left thoracotomy tube is unchanged. There is a small left apical pneumothorax. The remainder of the left hemithorax is opacified. The right lung is clear. The left subclavian central venous catheter is unchanged. Impression: No interval change. Electronically Signed by Aydin Stevenson MD 08/18/2018 10:17 A
[2018-08-18] MEDS ORDERED: BUPIVACAINE HCL 0.5% 10 ML VIAL As Ordered ONE (10:43)
[2018-08-18] MEDS ORDERED: CETACAINE SPRAY 5GM As Ordered ONE (10:43)
[2018-08-18] MEDS ORDERED: BUPIVACAINE LIPOSOME/PF 1.3% 20ML VIAL (13.3MG/ML)(EXPAREL)(C9290 PER1MG) As Ordered ONE (10:43)
[2018-08-18] MEDS: VANCOMYCIN 1000 MG/20 ML VIAL (J3370) As Ordered ONE (11:28)
[2018-08-18] MEDS: VANCOMYCIN HCL 1,000 MG, VIAL MATE ADAPTER 1 EACH in D5W 250 ML IV ONE ×2 (11:28→13:10)
--- NOTE | 2018-08-18 11:48 | CR ---
DATE OF CONSULTATION: 08/17/2018 The patient is seen at the request of Dr. Lara for increasing shortness of breath, along with now documented pericardial and left pleural effusion. 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 She is status post aspiration pneumonia this past July, who has had problems with recurrent aspiration pneumonia in the past. She is a resident of [facility] ([facility]). She was noted yesterday by the staff to be more short of breath and was therefore brought to the emergency room. While the patient is not mobile, it was the concern of the staff that she was working harder to breathe. There is very little other history to go by. I have no history of cough or sputum production. No history of fevers, chills or sweats or chest discomfort or chest pain. The patient is essentially noncommunicative and nonverbal. PAST MEDICAL HISTORY: 1. Spastic cerebral palsy with quadriparesis. 2. Developmental delay and mental retardation. 3. Seizure disorder. 4. Chronic hypothermia. 5. Osteopenia. 6. Chronically elevated liver function tests. 7. Recurrent urinary tract infection (UTI). 8. Recurrent aspiration pneumonia. 9. Cuneiform dermatitis. PAST SURGICAL HISTORY: 1. Gastrostomy tube placed in 1991 for which she is completely dependent for feedings. HABITS: Does not smoke. Does not drink. SOCIAL HISTORY: She is a resident of [facility] with her parents being her legal guardians. She does not smoke or imbibe alcohol. There is of course no recreational drug use. FAMILY HISTORY: Parents are living, father with dyslipidemia and mother with ulcerative colitis. ALLERGIES: AMOXICILLIN, CLARITHROMYCIN, CLAVULANIC ACID, CORTICOTROPIN, GRAPEFRUIT, H. FLU VACCINE, PENICILLIN, TETANUS TOXOID. REVIEW OF SYSTEMS: Unable to obtain a review of systems. MEDICATIONS AT [facility]: All via gastrostomy (G) tube: - Zyrtec 10 mg at night - clindamycin topical to under arms and behind ears twice a day - Atrazine 7.5 mg twice a day - cyproheptadine 8 mg three times a day - Vimpat 5 mL in the morning - lacosamide 7.5 mg at night - levalbuterol nebulizers every 2 hours as needed for shortness of breath - Keppra 500 mg twice a day - minocycline 50 mg at night - ranitidine 150 mg twice a day - Xarelto 20 mg at night - scopolamine 11.5 mg transdermal every third day along with stool softeners PHYSICAL EXAMINATION: Adult female with spastic quadriplegia, lying comfortably in no acute distress. Respiratory rate is 20 without the use of accessory muscles. Pulse is 110 in a sinus rhythm. She is 99% saturated on 2 liters nasal cannula. Blood pressure is 146/106. Temperature is 96.8. EYES: Pupils are equal and reactive to light. Extraocular motions look to be intact. Sclerae nonicteric. NOSE: Without deformity. MOUTH: Shows mucous membranes to be pink and moist. NECK: Supple from side to side, although she favors turning it to the left side. There is no thyromegaly. No lymphadenopathy. She has 2+ carotid upstrokes. Trachea is midline. LUNGS: Show markedly decreased breath sounds on the left side with dull percussion on the left side, posterolaterally. Right side shows coarse rhonchi throughout the respiratory cycle. CARDIAC: Exam shows distant heart sounds. I do not hear murmurs, clicks, gallops or rubs. I cannot feel her point of maximum impulse (PMI). ABDOMEN: Soft, nontender. Bowel sounds are positive. There is no guarding or rigidity. There is no hepatomegaly that I can detect. EXTREMITIES: Trace pretibial edema. No calf tenderness. No differential swelling of the upper extremities. SKIN: Warm, dry and perfused without cyanosis or mottling, including that of the nailbeds and knees. NEUROLOGIC: Shows her to have spastic extremities. PSYCHIATRIC: Shows markedly decreased mental status. LABORATORY DATA: Her white count is 11.4 with a hemoglobin and hematocrit of 13.2 and 40.2, respectively, with a platelet count of 455. Differential shows 54% neutrophils, 25% lymphocytes, 18% monocytes. There are no toxic granulations. No immature forms. Chemistries: Show normal electrolytes with a BUN and creatinine of 15 and 0.40 with a glucose of 117. Calcium is 8.8 with a corresponding albumin of 2.3. Her AST is 54 with ALT of 57. Alkaline phosphatase is 446. Her chest x-ray shows complete opacity of the left hemithorax. She has scoliosis and is severely rotated on her chest x-ray. There looks to be an infiltrative process perhaps in the right lung. Chest CT shows large left sided pleural effusion with a large pericardial effusion. Pericardium is adjacent to the chest wall. Because of her skeletal deformities, her pericardium is well above the xyphoid. She has some increased bowel gas. Left lung looks to have bilobar infiltrates. Left lung is completely compressed. I do not see her adrenals. IMPRESSION: 1. Pericardial effusion, large. 2. Left pleural effusion with complete opacification and compression of the left lung. 3. Cerebral palsy with spastic quadriplegia. 4. Recurrent aspiration pneumonias. 5. Hypothermia, chronic. 6. Profound mental retardation. 7. Seizure disorder. 8. Severe osteopenia. 9. Recurrent urinary tract infection (UTI)s. PLAN/DISCUSSION: I will immediately drain her pericardium. Her pericardium is injected close to the chest wall and it should be amenable to a percutaneous tube or pericardiostomy. I will also place a chest tube to drain her hemithorax. We will have to do a workup to ascertain the etiology of her effusions.
[2018-08-18] MEDS ORDERED: dexameTHASONE 4 MG/ML 1ML VIAL (J1100) As Ordered ONE (11:51)
[2018-08-18] MEDS ORDERED: METOCLOPRAMIDE INJ 10MG/2ML VIAL (J2765) As Ordered ONE (11:51)
[2018-08-18] MEDS ORDERED: PROPOFOL 200 MG/20 ML VIAL As Ordered ONE (11:51)
[2018-08-18] MEDS ORDERED: fentaNYL 250 MCG/5 ML INJECTION (J3010) As Ordered ONE (11:51)
[2018-08-18] MEDS ORDERED: GLYCOPYRROLATE INJ 0.2 MG/ML 2 ML VIAL As Ordered ONE (11:51)
[2018-08-18] MEDS ORDERED: ONDANSETRON 4MG/2ML VIAL (J2405) As Ordered ONE (11:51)
[2018-08-18] MEDS ORDERED: ROCURONIUM BROMIDE 50 MG/5 ML VIAL As Ordered ONE ×2 (11:51→12:16)
[2018-08-18] MEDS ORDERED: MIDAZOLAM INJ 2 MG/2 ML VIAL (J2250) As Ordered ONE (11:51)
[2018-08-18] MEDS ORDERED: NEOSTIGMINE 10 MG/10 ML VIAL (J2710) As Ordered ONE (11:51)
[2018-08-18] MEDS ORDERED: LIDOCAINE 2% INJ 100 MG/5 ML SDV (FOR ANES.) As Ordered ONE (11:51)
[2018-08-18] MEDS ORDERED: SUCCINYLCHOLINE 100 MG/5 ML SYRINGE (J0330) As Ordered ONE (11:51)
[2018-08-18] MEDS ORDERED: LIDOCAINE 5% OINT 30 GM As Ordered ONE (11:52)
[2018-08-18] MEDS ORDERED: ePHEDrine SULFATE 25 MG/5 ML(5MG/ML) SYRINGE As Ordered ONE (11:53)
--- NOTE | 2018-08-18 11:59 | IPN ---
DATE: 08/18/2018 Ms. Echeverria has had a relatively stable 24 hours. Her heart rate ranges in the mid 90s and she has maintained her blood pressure. There is no change in her physiologic status. Her vital signs show a T-max of 96.8 with a heart rate that ranges between 93 and 94 and is sinus rhythm, respiratory rate of 18-20 without the use of accessory muscles who is 96-100% saturated on 2 liters nasal cannula and whose blood pressure is ranging between 149/94 to 118/70. Her intake and output the past 24 hours has been recorded as 380 in and 2175 out for a negativity of 1795 mL. We withdrew 1000 mL from the chest tube yesterday and overnight she has put out 90 mL. On physical examination, she still has markedly decreased breath sounds on the left side. There is scattered rales and rhonchi throughout the entire respiratory cycle. Cardiac: Heart sounds are still distant. I cannot feel her point of maximal impulse (PMI). S1 and S2 are normal. I cannot hear any murmurs. Abdomen is soft and nontender. Bowel sounds are positive. Extremities show trace pretibial edema. No calf tenderness. No differential swelling of the upper extremities. Skin is warm, dry and perfused without cyanosis or mottling including that of the nail beds and the knees. Neck is spastic, but we are able to turn her head. Trachea is midline. There is no subcutaneous emphysema. Mouth shows her mucous membranes to be pink and moist. Lips and commissures are without lesions. There is no thrush. Eyes show her pupils to be equal and reactive. Extraocular motors are intact. Sclera nonicteric. Neuro shows her to have spastic quadriplegia. Psychiatric shows her to be nonverbal and noncommunicative. Her white count today is 8.0 with hemoglobin and hematocrit of 12 and 37.2. Platelet count is 363. Differential shows 61% neutrophils, 22% lymphocytes, 13% monocytes. There are no immature forms or toxic granulations. Her electrolytes show potassium of 3.2 for which she is receiving more potassium. BUN and creatinine are 19 and 0.5 respectively. Calcium is 8.5 with an albumin of 2.0. Alkaline phosphatase is still elevated at 411, which is chronic. Her PT/INR are 19.0 and 1.57 respectively with a PTT of 67 seconds. Her chest x-ray today shows some clearing of the lung in the upper regions of the left hemithorax. The remainder of the chest remains opacified. Chest tube is in place. IMPRESSION: 1. Large pericardial effusion. 2. Pleural effusion, now drained. 3. Spastic quadriplegia secondary to cerebral palsy. 4. Chronic hypothermia. 5. Seizure disorder. 6. Severe osteopenia. PLAN AND DISCUSSION: After yesterday's experience trying to drain her pericardium, it looks as though she has fibrinous organized fluid and/or fibrinous exudate within her pericardium. 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 I discussed with Dr. Lara and with the family. We have decided to take her to the operating room where I will drain her pericardium and remove the fibrinous exudate. I will also do a pericardial window. Mother realizes the risks of the procedure and is willing to proceed.
[2018-08-18] MEDS ORDERED: MUPIROCIN 2% OINT 22 GM TUBE As Ordered ONE (12:29)
[2018-08-18] MEDS ORDERED: SUGAMMADEX SODIUM 500 MG/5 ML VIAL (BRIDION) As Ordered ONE (13:00)
[2018-08-18] MEDS ORDERED: KETOROLAC 30 MG/ML VIAL (J1885) As Ordered ONE (14:16)
[2018-08-18] MEDS: KETOROLAC 30 MG/ML VIAL (J1885) IV SCH ×2 (14:19→20:30)
[2018-08-18 14:43] LABS: BASO % 0.3 % (0.0-1.0); EOS # 0.4 10^3/uL (0.0-0.50); EOS % 3.3 % (0.0-3.0); HEMATOCRIT 35.4 % (36.0-47.0); HEMOGLOBIN 11.4 g/dl (12.0-15.5); LYMPH # 1.2 10^3/uL (1.5-4.5); LYMPH % 10.8 % (24.0-44.0); MEAN CORPUSCULAR HEMOGLOBIN 31.3 pg (27.0-33.0); MEAN CORPUSCULAR HGB CONC 32.2 g/dl (32.0-36.5); MEAN CORPUSCULAR VOLUME 97.3 fl (80.0-96.0); MONO # 0.9 10^3/uL (0.0-0.8); MONO % 7.7 % (0.0-5.0); NEUTROPHILS # 8.8 10^3/uL (1.8-7.7); NEUTROPHILS % 77.5 % (36.0-66.0); PLATELET COUNT, AUTOMATED 336 10^3/uL (150-450); RED BLOOD COUNT 3.64 10^6/uL (4.00-5.40); WHITE BLOOD COUNT 11.3 10^3/uL (4.0-10.0)
[2018-08-18 14:46] LABS: ABG BASE EXCESS 1.7 (-2.0-2.0); ABG HCO3 28.4 MEQ/L (22.0-26.0); ABG O2 SATURATION 99.8 % (95.0-99.0); ABG PARTIAL PRESSURE O2 225.1 mmHg (75.0-100.0); ABG TOTAL CO2 30.1 MEQ/L (22.0-29.0); ABG pH (ARTERIAL) 7.339 UNITS (7.350-7.450)
[2018-08-18] MEDS ORDERED: fentaNYL 100 MCG/2 ML INJECTION (J3010) As Ordered ONE (14:48)
[2018-08-18] MEDS: fentaNYL 100 MCG/2 ML INJECTION (J3010) IV PRN ×5 (14:50→15:55)
[2018-08-18 14:54] LABS: BLOOD UREA NITROGEN 17 MG/DL (7-18); CALCIUM LEVEL 8.3 MG/DL (8.5-10.1); CARBON DIOXIDE LEVEL 30 MEQ/L (21-32); CHLORIDE LEVEL 105 MEQ/L (98-107); CREATININE FOR GFR 0.46 MG/DL (0.55-1.30); GLOMERULAR FILTRATION RATE > 60.0 (>60); GLUCOSE, FASTING 144 MG/DL (70-100); POTASSIUM SERUM 3.4 MEQ/L (3.5-5.1); SODIUM LEVEL 142 MEQ/L (136-145)
[2018-08-18] MEDS ORDERED: LR 1,000 ML IV SCH (15:15)
[2018-08-18] MEDS ORDERED: HYDROMORPHONE HCL 0.5 MG/ 0.5 ML SYRINGE (J1170 PER 1) IV PRN (15:15)
[2018-08-18] MEDS: KCL 40MEQ IN D5/NS 1000ML 1,000 ML IV SCH (17:24)
--- NOTE | 2018-08-18 19:14 | REP ---
PORTABLE CHEST: AP portable view of the chest was performed and compared to prior exam the same day. Left chest tube and central venous catheter appear unchanged. I do not see a definite pneumothorax. Left lung opacities are stable. No new infiltrate is seen on the right. Electronically Signed by Aydin Walker MD 08/18/2018 08:22 P
[2018-08-18] MEDS: MINOCYCLINE 50 MG CAP GT SCH (20:30)
[2018-08-18] MEDS: DOCUSATE SOD LIQ 100MG/10ML UDC GT SCH (20:30)
[2018-08-18] MEDS: CETIRIZINE (ZyrTEC) 10 MG TAB GT SCH (20:31)
[2018-08-18] MEDS: ERGOCALCIFEROL 8000 INTERNATIONAL UNITS/ML ORAL SOLN BTL 60ML GT SCH (20:31)
[2018-08-18] MEDS: MULTIVITAMINS LIQ DROPS 50 ML BTL GT SCH (20:31)
[2018-08-18] MEDS: MIRALAX *UNIT DOSE* 17GM PACKET GT SCH (20:33)
--- NOTE | 2018-08-18 21:24 | IPNPDOC ---
Subjective Date Seen The patient was seen on 08/18/18. Subjective Chief Complaint/HPI Patient is nonverbal. No specific concerns from nursing. General: Reports: ROS Unobtainable Objective Physical Examination General Exam: Positive: Cooperative ENT Exam: Positive: Atraumatic Neck Exam: Positive: Supple Chest Exam: Positive: Diminished, Other (Chest tube in place. ) Heart Exam: Positive: Rate Normal; Negative: Irregular Rhythm Abdomen Exam: Positive: Normal bowel sounds; Negative: Tenderness Extremity Exam: Negative: Edema Skin Exam: Negative: Rash Assessment /Plan Problems (1) Pericardial effusion Problem Text: Dr. Sims consulted. Plan is to go to OR today to relieve fluid. Cause is likely secondary to viral. CT chest 08/17 Large left pleural effusion occupying the entire left hemithorax with mediastinal shift to the right compatible with a tension pleural effusion. Small right pleural effusion. Large pericardial effusion. (2) Recurrent pleural effusion on left Status: Acute Problem Text: CT noted pleural effusion, large on the left. Chest tube placed by Dr. Sims. Monitoring output. (3) Profound mental retardation Status: Chronic Problem Text: Patient is nonverbal. This is chronic and from an anoxic injury around . This significantly complicates her medical care. (4) Feeding by G-tube Status: Chronic Problem Text: She is not able to take any PO and receives all of her meds by G- tube and her enteral nutrition via J-tube. (5) CP (cerebral palsy), spastic, quadriplegic Status: Chronic Problem Text: This is chronic and from an anoxic injury around . This significantly complicates her medical care. Her anatomy is distorted making even basic procedure more difficult because of her unique anatomy. (6) Hypokalemia Status: Acute Problem Text: K was 3.4 this morning. Potassium added to IV fluids. Will recheck. Plan/VTE VTE Prophylaxis Ordered?: Yes (Xarelto on hold) VS, I&O, 24H, Fishbone Vital Signs/I&O Vital Signs Date Time Temp Pulse Resp B/P (MAP) Pulse Ox O2 Delivery O2 Flow Rate FiO2 08/18/18 18:01 95.2 93 18 140/72 (94) 98 2.0 08/18/18 15:20 Room Air I&O- Last 24 Hours up to 6 AM 08/18/18 06:00 Intake Total 830 ml Output Total 2315 ml Balance -1485 ml Laboratory Data 24H LABS Laboratory Tests 2 08/18/18 04:51: Immature Granulocyte % (Auto) 0.3, White Blood Count 8.0, Red Blood Count 3.92L, Hemoglobin 12.1, Hematocrit 37.2, Mean Corpuscular Volume 94.9, Mean Corpuscular Hemoglobin 30.9, Mean Corpuscular Hemoglobin Concent 32.5, Red Cell Distribution Width 15.5H, Platelet Count 383, Neutrophils (%) (Auto) 61.8, Lymphocytes (%) (Auto) 22.2L, Monocytes (%) (Auto) 13.5H, Eosinophils (%) (Auto) 1.8, Basophils (%) (Auto) 0.4, Neutrophils # (Auto) 5.0, Lymphocytes # (Auto) 1.8, Monocytes # (Auto) 1.1H, Eosinophils # (Auto) 0.1, Basophils # (Auto) 0.0, Nucleated Red Blood Cells % (auto) 0.0, Prothrombin Time 19.0H, Prothromb Time International Ratio 1.57, Activated Partial Thromboplast Time 67.7H, Anion Gap 7L, Glomerular Filtration Rate > 60.0, Blood Urea Nitrogen 19H, Creatinine 0.50L, Sodium Level 138, Potassium Level 3.2#L, Chloride Level 100, Carbon Dioxide Level 31, Calcium Level 8.5, Aspartate Amino Transf (AST/SGOT) 56H, Alanine Aminotransferase (ALT/SGPT) 53, Alkaline Phosphatase 411H, Total Bilirubin 0.5, Total Protein 7.3, Albumin 2.0L, C-Reactive Protein, Quantitative 31.40H, Albumin/Globulin Ratio 0.38L 08/18/18 14:19: Immature Granulocyte % (Auto) 0.4, White Blood Count 11.3H, Red Blood Count 3.64L, Hemoglobin 11.4L, Hematocrit 35.4L, Mean Corpuscular Volume 97.3H, Mean Corpuscular Hemoglobin 31.3, Mean Corpuscular Hemoglobin Concent 32.2, Red Cell Distribution Width 15.6H, Platelet Count 336, Neutrophils (%) (Auto) 77.5H, Lymphocytes (%) (Auto) 10.8L, Monocytes (%) (Auto) 7.7H, Eosinophils (%) (Auto) 3.3H, Basophils (%) (Auto) 0.3, Neutrophils # (Auto) 8.8H, Lymphocytes # (Auto) 1.2L, Monocytes # (Auto) 0.9H, Eosinophils # (Auto) 0.4, Basophils # (Auto) 0.0, Nucleated Red Blood Cells % (auto) 0.0, Anion Gap 7L, Glomerular Filtration Rate > 60.0, Blood Urea Nitrogen 17, Creatinine 0.46L, Sodium Level 142, Potassium Level 3.4L, Chloride Level 105, Carbon Dioxide Level 30, Calcium Level 8.3L 08/18/18 14:40: Blood Gas Bicarbonate Standard 26.0, Arterial Blood pH 7.339L, Arterial Blood Partial Pressure CO2 54.0H, Arterial Blood Partial Pressure O2 225.1H, Arterial Blood Total CO2 30.1H, Arterial Blood HCO3 28.4H, Arterial Blood Base Excess 1.7, Arterial Blood Oxygen Saturation 99.8H CBC/BMP Laboratory Tests 08/18/18 04:51 Red Blood Count 3.92 L, Mean Corpuscular Volume 94.9, Mean Corpuscular Hemoglobin 30.9, Mean Corpuscular Hemoglobin Concent 32.5, Red Cell Distribution Width 15.5 H, Neutrophils (%) (Auto) 61.8, Lymphocytes (%) (Auto) 22.2 L, Monocytes (%) (Auto) 13.5 H, Eosinophils (%) (Auto) 1.8, Basophils (%) (Auto) 0.4, Neutrophils # (Auto) 5.0, Lymphocytes # (Auto) 1.8, Monocytes # (Auto) 1.1 H, Eosinophils # (Auto) 0.1, Basophils # (Auto) 0.0, Calcium Level 8.5, Aspartate Amino Transf (AST/SGOT) 56 H, Alanine Aminotransferase (ALT/SGPT) 53, Alkaline Phosphatase 411 H, Total Bilirubin 0.5, Total Protein 7.3, Albumin 2.0 L 08/18/18 14:19 Red Blood Count 3.64 L, Mean Corpuscular Volume 97.3 H, Mean Corpuscular Hemoglobin 31.3, Mean Corpuscular Hemoglobin Concent 32.2, Red Cell Distribution Width 15.6 H, Neutrophils (%) (Auto) 77.5 H, Lymphocytes (%) (Auto) 10.8 L, [place] cytes (%) (Auto) 7.7 H, Eosinophils (%) (Auto) 3.3 H, Basophils (%) (Auto) 0.3, Neutrophils # (Auto) 8.8 H, Lymphocytes # (Auto) 1.2 L, Monocytes # (Auto) 0.9 H, Eosinophils # (Auto) 0.4, Basophils # (Auto) 0.0, Calcium Level 8.3 L Microbiology Microbiology 08/17/18 Blood Culture - Preliminary, Resulted No growth after 24 hours . All specim... 08/17/18 Blood Culture - Preliminary, Resulted No growth after 24 hours . All specim... 08/17/18 Acid Fast Stain, Received Pending 08/17/18 Mycobacterial Culture, Received Pending 08/17/18 Fungal Smear, Received Pending 08/17/18 Fungal Culture, Received Pending 08/17/18 Gram Stain - Final, Resulted 08/17/18 Anaerobic Culture, Resulted Pending 08/17/18 Body Fluid Culture, Received Pending 08/17/18 Respiratory Virus Panel (PCR) ([facility]US[facility]) - Final, Complete 08/18/18 Acid Fast Stain, Received Pending 08/18/18 Mycobacterial Culture, Received Pending 08/18/18 Wound Culture, Received Pending 08/18/18 Anaerobic Culture, Received Pending 08/18/18 Fungal Smear, Received Pending 08/18/18 Fungal Culture, Received Pending GME ATTESTATION GME ATTESTATION My faculty preceptor for this patient encounter was physically present during the encounter and was fully available. All aspects of the patient interview, examination, medical decision making process, and medical care plan development were reviewed and approved by the faculty preceptor. The faculty preceptor is aware and concurs with the plan as stated in the body of this note and will attest to such by his/her cosignature. TIKA ARIAS DO Aug 18, 2018 21:24
[2018-08-19] VITALS (14 sets, daily range): BP systolic 97–132; BP diastolic 54–78
[2018-08-19] MEDS: IBUPROFEN 100 MG/5 ML SUSP UDC DYE FREE GT SCH ×4 (00:04→17:00)
[2018-08-19] MEDS: LEVALBUTEROL 1.25 MG/0.5 ML CONCENTRATE NEB NEB SCH ×4 (02:00→20:43)
[2018-08-19] MEDS: KETOROLAC 30 MG/ML VIAL (J1885) IV SCH ×4 (04:58→20:31)
[2018-08-19] MEDS: KCL 40MEQ IN D5/NS 1000ML 1,000 ML IV SCH (06:20)
[2018-08-19 06:56] LABS: BLOOD UREA NITROGEN 21 MG/DL (7-18); CALCIUM LEVEL 8.7 MG/DL (8.5-10.1); CARBON DIOXIDE LEVEL 28 MEQ/L (21-32); CHLORIDE LEVEL 108 MEQ/L (98-107); CREATININE FOR GFR 0.51 MG/DL (0.55-1.30); GLOMERULAR FILTRATION RATE > 60.0 (>60); GLUCOSE, FASTING 180 MG/DL (70-100); POTASSIUM SERUM 4.7 MEQ/L (3.5-5.1); SODIUM LEVEL 141 MEQ/L (136-145)
[2018-08-19] MEDS: CALCIUM CARB SUSP 1250MG/5ML UNIT DOSE CUP GT SCH ×2 (08:40→20:30)
[2018-08-19] MEDS: DOCUSATE SOD LIQ 100MG/10ML UDC GT SCH ×2 (08:40→20:30)
[2018-08-19] MEDS: levETIRAcetam ORAL SOLUTION 500 MG/5 ML UDC GT SCH ×2 (08:40→20:30)
[2018-08-19] MEDS: LACOSAMIDE 50 MG TAB (VIMPAT) GT SCH ×2 (08:41→20:33)
[2018-08-19] MEDS: CLORAZEPATE 3.75 MG TAB GT SCH ×2 (08:41→20:31)
[2018-08-19] MEDS: CYPROHEPTADINE 4 MG TAB GT SCH ×3 (08:41→20:31)
[2018-08-19] MEDS: MOM 30ML SUSPENSION UDC PO SCH (08:42)
--- NOTE | 2018-08-19 08:44 | REP ---
Portable chest, 06:40 a.m., single AP view, the patient semi upright: Comparison is 06/17/2019. There is complete opacification of the left hemithorax, unchanged. The left thoracotomy tube is unchanged. The left subclavian central venous catheter is unchanged. Right lung is clear and unchanged. Right humeral neck fracture is unchanged. Impression: No interval change. Electronically Signed by Aydin Stevenson MD 08/19/2018 08:35 A
[2018-08-19] MEDS: COLCHICINE 0.6 MG TAB PO SCH (08:52)
[2018-08-19] MEDS: NYSTATIN 100,000 UNITS/GM TOPICAL PWD 15 GM TOP SCH ×2 (08:52→20:32)
--- NOTE | 2018-08-19 11:14 | RO ---
DATE OF PROCEDURE: 08/17/2018 PREPROCEDURE DIAGNOSIS: Pleural effusion. POSTPROCEDURE DIAGNOSIS: Pleural effusion. SURGEON: Conrado Sims MD IRON BENDER: PROCEDURE: Insertion of a #24 posterolateral chest tube. ANESTHESIA: FINDINGS: 1000 mL of serosanguineous fluid, more serous than sanguinous was removed. Specimens were sent for requisite cytologies and bacteriologies, chemistries and hematologies. DESCRIPTION OF PROCEDURE: Under satisfactory moderate sedation achieved with 1 mg of Versed, the patient was prepped and draped in the usual sterile fashion. Incision was made in the mid axillary line at about the 6th intercostal space. A tunnel was created in the chest without difficulty. A #[address] The above findings were noted. Chest tube was secured to the chest wall with a #2 [place] suture. The patient tolerated the procedure well, and chest x-ray is pending.
--- NOTE | 2018-08-19 11:22 | RO ---
DATE OF PROCEDURE: 08/17/2018 PREPROCEDURE DIAGNOSIS: Pericardial effusion. POSTPROCEDURE DIAGNOSIS: Pericardial effusion. PROCEDURE: Pericardiocentesis, attempted tube pericardiostomy. SURGEON: Dr. Conrado Sims PRESS ASSISTANT: ANESTHESIA: FINDINGS: While we could find a window with the echocardiography, the pleural effusion looked heterogeneous as if it were semi-organized. The pericardial fluid was found, but only about 20 mL was removed. A wire would not pass into the pericardium to give me enough confidence to place a tube. DESCRIPTION OF PROCEDURE: Under satisfactory moderate sedation eventually achieved with 4 mg of Versed, the patient was prepped and draped in the usual sterile fashion. The chosen site by both echo and by CAT scan was prepped and draped in the usual sterile fashion. The site was infiltrated with 1% lidocaine and an explorer needle was placed into the pericardium. 20 mL of serosanguineous fluid was eventually removed. I could not pass the wire. Therefore, the intention of placing a pericardiostomy tube was abandoned with a mere pericardiocentesis. Specimens were sent for requisite chemistry, cytologies, hematologies, and bacteriologies. The patient tolerated the procedure well.
[2018-08-19 14:05] LABS: ABG HCO3 29.7 MEQ/L (22.0-26.0); ABG O2 SATURATION 96.8 % (95.0-99.0); ABG PARTIAL PRESSURE CO2 44.8 mmHg (35.0-45.0); ABG STANDARD HCO3 28.9 MEQ/L (22.0-26.0); ABG TOTAL CO2 31.1 MEQ/L (22.0-29.0)
--- NOTE | 2018-08-19 20:11 | ECHO ---
DATE OF PROCEDURE: 08/17/2018 AGE: 37 GENDER: Female REFERRING PHYSICIAN: Dr. Efrain Lara HEIGHT: Not recorded. WEIGHT: Not recorded. INPATIENT: ICU Room 3209 INDICATION: Pericardial effusion- "quick look prior to pericardial centesis". COMMENTS: Sinus tachycardia without intraventricular conduction disturbance. Only two-dimensional echocardiography was performed from the parasternal long axis and short axis and subcostal projections. Cardiac chamber sizes appeared to be normal. Normal left ventricular wall thickness. Left ventricular wall motion was symmetrical and hyperkinetic. Right ventricular free wall motion was also normal. Valvular structures appear to be normal. Large pericardial effusion measuring at least 2 cm apically, 2.5 cm inferiorly an 1.5 cm anteriorly. There did not appear to be evidence of cardiac chamber compression but the diagnosis of cardiac tamponade is a clinical one. No Doppler flow study was performed.
[2018-08-19] MEDS: MIRALAX *UNIT DOSE* 17GM PACKET GT SCH (20:31)
[2018-08-19] MEDS: MINOCYCLINE 50 MG CAP GT SCH (20:32)
[2018-08-19] MEDS: RIVAROXABAN 20 MG TAB (XARELTO) GT SCH (20:32)
[2018-08-19] MEDS: CETIRIZINE (ZyrTEC) 10 MG TAB GT SCH (20:32)
[2018-08-19] MEDS: ERGOCALCIFEROL 8000 INTERNATIONAL UNITS/ML ORAL SOLN BTL 60ML GT SCH (21:00)
[2018-08-19] MEDS: MULTIVITAMINS LIQ DROPS 50 ML BTL GT SCH (21:05)
--- NOTE | 2018-08-19 21:44 | IPNPDOC ---
Subjective Date Seen The patient was seen on 08/19/18. Subjective Chief Complaint/HPI Patient is still nonverbal. General: Reports: ROS Unobtainable Objective Physical Examination General Exam: Positive: Cooperative ENT Exam: Positive: Atraumatic Neck Exam: Positive: Supple Chest Exam: Positive: Diminished, Other (Chest tube in place. 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 This will progress likely and cause worsening heart failure. 08/18 Dr. Sims consulted. Plan is to go to OR today to relieve fluid. Cause is likely secondary to viral. CT chest 08/17 Large left pleural effusion occupying the entire left hemithorax with mediastinal shift to the right compatible with a tension pleural effusion. Small right pleural effusion. Large pericardial effusion. (2) Recurrent pleural effusion on left Status: Acute Problem Text: CT noted pleural effusion, large on the left. Chest tube placed by Dr. Sims. Monitoring output. (3) Profound mental retardation Status: Chronic Problem Text: Patient is nonverbal. This is chronic and from an anoxic injury around . This significantly complicates her medical care. (4) Feeding by G-tube Status: Chronic Problem Text: She is not able to take any PO and receives all of her meds by G- tube and her enteral nutrition via J-tube. (5) CP (cerebral palsy), spastic, quadriplegic Status: Chronic Problem Text: This is chronic and from an anoxic injury around . This significantly complicates her medical care. Her anatomy is distorted making even basic procedure more difficult because of her unique anatomy. (6) Hypokalemia Status: Acute Problem Text: K was 3.4 this morning. Potassium added to IV fluids. Will recheck. Plan/VTE VTE Prophylaxis Ordered?: Yes (Xarelto on hold) Plan Discussion occurred on phone with Dr. Lara and patient's mother about patient's current condition and thoughts on plan. VS, I&O, 24H, Fishbone Vital Signs/I&O Vital Signs Date Time Temp Pulse Resp B/P (MAP) Pulse Ox O2 Delivery O2 Flow Rate FiO2 08/19/18 16:00 95.9 89 20 97/55 (69) 96 08/18/18 18:01 2.0 08/18/18 15:20 Room Air I&O- Last 24 Hours up to 6 AM 08/19/18 06:00 Intake Total 2725 ml Output Total 473 ml Balance 2252 ml Laboratory Data 24H LABS Laboratory Tests 2 08/19/18 05:34: Blood Gas Bicarbonate Standard 28.9H, Arterial Blood pH 7.440, Arterial Blood Partial Pressure CO2 44.8, Arterial Blood Partial Pressure O2 88.0, Arterial Blood Total CO2 31.1H, Arterial Blood HCO3 29.7H, Arterial Blood Base Excess 5.0H, Arterial Blood Oxygen Saturation 96.8, Anion Gap 5L, Glomerular Filtration Rate > 60.0, Blood Urea Nitrogen 21H, Creatinine 0.51L, Sodium Level 141, Potassium Level 4.7#, Chloride Level 108H, Carbon Dioxide Level 28, Calcium Level 8.7 CBC/BMP Laboratory Tests 08/19/18 05:34 Calcium Level 8.7 Microbiology Microbiology 08/17/18 Blood Culture - Preliminary, Resulted No Growth after 48 hours. All Specime... 08/17/18 Blood Culture - Preliminary, Resulted No Growth after 48 hours. All Specime... 08/17/18 Acid Fast Stain, Received Pending 08/17/18 Mycobacterial Culture, Received Pending 08/17/18 Fungal Smear, Received Pending 08/17/18 Fungal Culture, Received Pending 08/17/18 Gram Stain - Final, Complete 08/17/18 Anaerobic Culture - Final, Complete 08/17/18 Body Fluid Culture - Final, Complete 08/17/18 Respiratory Virus Panel (PCR) ([facility]USAN) - Final, Complete 08/18/18 Acid Fast Stain, Received Pending 08/18/18 Mycobacterial Culture, Received Pending 08/18/18 Wound Culture, Received Pending 08/18/18 Anaerobic Culture, Received Pending 08/18/18 Fungal Smear, Received Pending 08/18/18 Fungal Culture, Received Pending GME ATTESTATION ATTENDING NOTE Family Medicine Attending Note: I was present on site to supervise Tika Arias D.O. (OGME-3). We discussed the history and exam. I confirmed the rivas elements during my [id number] encounter with the patient. We conferred on the assessment and plan; I agree with the note as documented. Given Dr. Sims surprising finding yesterday in the operating room, I spent significant time discussing these findings with her mother on the phone. 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 Her mother wanted time to think about this, which is completely reasonable and responsible. I did also briefly discussed this case with Dr. José Miguel Page and Mr. Tyrone Morillo so they would be aware of the clinical changes. (puncher) TIKA ARIAS DO Aug 19, 2018 9:44 pm fErain Lara MD Aug 21, 2018 10:47 pm
[2018-08-20] VITALS (12 sets, daily range): BP systolic 93–122; BP diastolic 52–72
[2018-08-20] MEDS: LEVALBUTEROL 1.25 MG/0.5 ML CONCENTRATE NEB NEB SCH ×4 (02:42→20:02)
[2018-08-20] MEDS: KETOROLAC 30 MG/ML VIAL (J1885) IV SCH ×3 (02:56→14:00)
[2018-08-20 03:11] LABS: HEMATOCRIT 29.5 % (36.0-47.0); MEAN CORPUSCULAR HEMOGLOBIN 30.8 pg (27.0-33.0); MEAN CORPUSCULAR HGB CONC 31.2 g/dl (32.0-36.5); MEAN CORPUSCULAR VOLUME 98.7 fl (80.0-96.0); PLATELET COUNT, AUTOMATED 315 10^3/uL (150-450); RED BLOOD COUNT 2.99 10^6/uL (4.00-5.40); WHITE BLOOD COUNT 9.9 10^3/uL (4.0-10.0)
[2018-08-20 03:20] LABS: HEMOGLOBIN 9.2 g/dl (12.0-15.5)
[2018-08-20 03:37] LABS: BLOOD UREA NITROGEN 24 MG/DL (7-18); CALCIUM LEVEL 7.7 MG/DL (8.5-10.1); CARBON DIOXIDE LEVEL 31 MEQ/L (21-32); CHLORIDE LEVEL 109 MEQ/L (98-107); CREATININE FOR GFR 0.44 MG/DL (0.55-1.30); GLOMERULAR FILTRATION RATE > 60.0 (>60); GLUCOSE, FASTING 107 MG/DL (70-100); POTASSIUM SERUM 4.3 MEQ/L (3.5-5.1); SODIUM LEVEL 144 MEQ/L (136-145)
--- NOTE | 2018-08-20 07:36 | REP ---
Portable chest, 06:55 a.m., single AP view, the patient upright: Comparison is 08/19/2018. There is aeration of a small portion of the left upper lobe apex as an interval change. The remainder of the left hemithorax is completely opacified as previously. Left thoracotomy tube is unchanged. The left subclavian central venous catheter is unchanged. Right lung is clear. Right humeral neck fracture is unchanged. Impression: Aeration of a small portion of the left upper lobe apex. No other interval change Electronically Signed by Aydin Stevenson MD 08/20/2018 07:27 A
[2018-08-20] MEDS: MOM 30ML SUSPENSION UDC PO SCH (08:05)
[2018-08-20] MEDS: DOCUSATE SOD LIQ 100MG/10ML UDC GT SCH ×2 (08:05→21:53)
[2018-08-20] MEDS: levETIRAcetam ORAL SOLUTION 500 MG/5 ML UDC GT SCH ×2 (09:20→21:54)
[2018-08-20] MEDS: CALCIUM CARB SUSP 1250MG/5ML UNIT DOSE CUP GT SCH ×2 (09:20→21:54)
[2018-08-20] MEDS: NS 1,000 ML IV SCH ×2 (09:20→17:34)
[2018-08-20] MEDS: CLORAZEPATE 3.75 MG TAB GT SCH ×2 (09:21→22:35)
[2018-08-20] MEDS: LACOSAMIDE 50 MG TAB (VIMPAT) GT SCH ×2 (09:21→21:53)
[2018-08-20] MEDS: NYSTATIN 100,000 UNITS/GM TOPICAL PWD 15 GM TOP SCH ×2 (09:21→22:27)
[2018-08-20] MEDS: CYPROHEPTADINE 4 MG TAB GT SCH ×3 (09:21→21:54)
[2018-08-20] MEDS: COLCHICINE 0.6 MG TAB GT SCH (12:05)
--- NOTE | 2018-08-20 16:25 | RO ---
DATE OF PROCEDURE: 08/18/2018 PREPROCEDURE DIAGNOSIS: Pericardial effusion and/or recent organized clot. POSTPROCEDURE DIAGNOSIS: Pericardial/mediastinal fibrosis with densely organized pericardial exudate. PROCEDURE: Pericardial excision and removal of accessible fibrotic exudate. Bronchoscopy. Bronchoalveolar lavage. FINDINGS: The pericardium was very thickened, and the exudate below it was densely consolidated and adherent to the epicardium. There was no fluid. A frozen section was sent and the material was found to be densely organized, maybe even old blood. There was no tumor seen on frozen section. Permanent sections are pending, as are cultures to include aerobic, anaerobic, fungal and TB. This looks like a long-term old fibrotic process. Bronchoscopy revealed a normal branching tracheobronchial tree with copious amounts of secretions. There were no endobronchial lesions. SURGEON: Dr. Conrado Sims DIRECTOR OF ADULT EPILEPSY: ANESTHESIA: DESCRIPTION OF PROCEDURE: Under satisfactory general anesthesia and single lumen tube endotracheal intubation, bronchoscope was placed in the tracheobronchial tree with the above results. Each segment and subsegment on bronchus was inspected, and there were no endobronchial lesions. She had copious amounts of secretions, which had to be cleared with bronchoalveolar lavage. The patient was then turned into the right lateral decubitus position and sterilely prepped and draped. Because of her spasticity, the arms could not be brought to the usual positions and were carefully supported without placing stress on the joints. Incision was made over the approximate 4th intercostal space. The patient is morbidly obese, and a lot of fatty tissue had to be dissected. Finally I got down to the chest wall, in between the latissimus dorsi and the pectoralis muscles. Intercostal muscles were incised, and the pericardium was identified after very gentle dissection. Pericardium was incised, and instead of obtaining fluid or gelatinized material, the underlying material was completely fibrotic and densely adherent to the epicardium. Sections of pericardium were taken without spreading the rib. These were sent for frozen sections and permanent sections. They were also sent for cultures and sensitivities to include aerobic and anaerobic, fungal and TB. Portions of the exudate were then removed very carefully so as not to enter the epicardium. Having received a diagnosis of dense fibrosis that confirmed my clinical impression, I did not have the exposure to decorticate the heart and even if I did, it would have been a very risky, tenuous procedure. The chest was then closed with a running #0 Vicryl suture, the subcutaneous tissue by use of #3-0 Vicryl suture, and the skin by use of #3-0 Monocryl subcuticular suture. No chest tube was placed as she had a chest tube previously placed. The patient tolerated the procedure well and left the operating room in satisfactory condition for the recovery room. JAKI
[2018-08-20] MEDS: SCOPOLAMINE 1MG TRANSDERMAL PATCH TOP SCH (17:25)
--- NOTE | 2018-08-20 19:20 | IPNPDOC ---
Subjective Date Seen The patient was seen on 08/20/18. Subjective Chief Complaint/HPI Nonverbal. Appears comfortable. Sleeping. General: Reports: ROS Unobtainable Objective Physical Examination General Exam: Positive: Cooperative ENT Exam: Positive: Atraumatic Neck Exam: Positive: Supple Chest Exam: Positive: Diminished, Other (Chest tube in place. 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 This will progress likely and cause worsening heart failure. 08/18 Dr. Sims consulted. Plan is to go to OR today to relieve fluid. Cause is likely secondary to viral. CT chest 08/17 Large left pleural effusion occupying the entire left hemithorax with mediastinal shift to the right compatible with a tension pleural effusion. Small right pleural effusion. Large pericardial effusion. (3) Recurrent pleural effusion on left Status: Acute Problem Text: 08/20 Chest tube management by Dr. Sims. May have removed today pending output remains low. 08/19 CT noted pleural effusion, large on the left. Chest tube placed by Dr. Sims. Monitoring output. (4) Profound mental retardation Status: Chronic Problem Text: Patient is nonverbal. This is chronic and from an anoxic injury around . This significantly complicates her medical care. (5) Feeding by G-tube Status: Chronic Problem Text: She is not able to take any PO and receives all of her meds by G- tube and her enteral nutrition via J-tube. (6) CP (cerebral palsy), spastic, quadriplegic Status: Chronic Problem Text: This is chronic and from an anoxic injury around . This significantly complicates her medical care. Her anatomy is distorted making even basic procedure more difficult because of her unique anatomy. (7) Hypokalemia Status: Acute Problem Text: K was 3.4 this morning. Potassium added to IV fluids. Will rechec k. (8) Urinary catheter in place Problem Text: Decreased output in urine cather overnight. IV fluids started. Plan/VTE VTE Prophylaxis Ordered?: Yes (Xarelto on hold) Plan Family Medicine Attending Note: I was present on site to supervise Tika Arias D.O. (OGME-3). We discussed the history and exam. I confirmed the rivas elements during my [id number] encounter with the patient. We conferred on the assessment and plan; I agree with the note as documented. Dr. Sims was able t o remove her chest tube today. By the end of the day Mrs. Echeverria had decided she would like to consider taking Klaudia home on hospice care possible. I started the MOLST checklist to put these changes to her care in place. I spoke to Rosalinda Wilber Patel and Dr. José Miguel Page regarding her mom's wishes. I know that her mom is her "legal guardian". I assume that this means that she is a 17A guardian, but we'll need to clarify this before we send the legal paperwork in. Regardless things are improving in the short-term and the patient seems very much like her usual self today. We were able to move her out of the ICU. (legal clerk) VS, I&O, 24H, Fishbone Vital Signs/I&O Vital Signs Date Time Temp Pulse Resp B/P (MAP) Pulse Ox O2 Delivery O2 Flow Rate FiO2 08/20/18 06:00 81 96/52 (67) 94 08/20/18 04:00 95.7 22 08/18/18 18:01 2.0 08/18/18 15:20 Room Air I&O- Last 24 Hours up to 6 AM 08/20/18 06:00 Intake Total 1090 ml Output Total 479 ml Balance 611 ml Laboratory Data 24H LABS Laboratory Tests 2 08/20/18 03:00: Nucleated Red Blood Cells % (auto) 0.0, Anion Gap 4L, Glomerular Filtration Rate > 60.0, Blood Urea Nitrogen 24H, Creatinine 0.44L, Sodium Level 144, Potassium Level 4.3, Chloride Level 109H, Carbon Dioxide Level 31, Calcium Level 7.7L CBC/BMP Laboratory Tests 08/20/18 03:00 Red Blood Count 2.99 L, Mean Corpuscular Volume 98.7 H, Mean Corpuscular Hemoglobin 30.8, Mean Corpuscular Hemoglobin Concent 31.2 L, Red Cell Distribution Width 16.0 H, Calcium Level 7.7 L Microbiology Microbiology 08/17/18 Blood Culture - Preliminary, Resulted No Growth after 72 hours. All specime... 08/17/18 Blood Culture - Preliminary, Resulted No Growth after 72 hours. All specime... 08/17/18 Acid Fast Stain, Received Pending 08/17/18 Mycobacterial Culture, Received Pending 08/17/18 Fungal Smear, Received Pending 08/17/18 Fungal Culture, Received Pending 08/17/18 Gram Stain - Final, Complete 08/17/18 Anaerobic Culture - Final, Complete 08/17/18 Body Fluid Culture - Final, Complete 08/17/18 Respiratory Virus Panel (PCR) (SUSAN) - Final, Complete 08/18/18 Acid Fast Stain, Received Pending 08/18/18 Mycobacterial Culture, Received Pending 08/18/18 Wound Culture - Final, Complete 08/18/18 Anaerobic Culture - Final, Complete 08/18/18 Fungal Smear, Received Pending 08/18/18 Fungal Culture, Received Pending GME ATTESTATION GME ATTESTATION My faculty preceptor for this patient encounter was physically present during the encounter and was fully available. All aspects of the patient interview, examination, medical decision making process, and medical care plan development were reviewed and approved by the faculty preceptor. The faculty preceptor is aware and concurs with the plan as stated in the body of this note and will attest to such by his/her cosignature. TIKA ARIAS DO Aug 20, 2018 10:18 am Efrain Lara MD Aug 21, 2018 11:01 pm
[2018-08-20] MEDS: RIVAROXABAN 20 MG TAB (XARELTO) GT SCH (21:53)
[2018-08-20] MEDS: MINOCYCLINE 50 MG CAP GT SCH (21:53)
[2018-08-20] MEDS: CETIRIZINE (ZyrTEC) 10 MG TAB GT SCH (21:53)
[2018-08-20] MEDS: MIRALAX *UNIT DOSE* 17GM PACKET GT SCH (21:55)
[2018-08-20] MEDS: ERGOCALCIFEROL 8000 INTERNATIONAL UNITS/ML ORAL SOLN BTL 60ML GT SCH (22:03)
[2018-08-20] MEDS: MULTIVITAMINS LIQ DROPS 50 ML BTL GT SCH (22:04)
[2018-08-21] VITALS (7 sets, daily range): BP systolic 102–139; BP diastolic 59–95
--- NOTE | 2018-08-21 00:13 | IPN ---
DATE: 08/19/2018 This is now the first postoperative day for Ms. Echeverria status post pericardial biopsy and window with intended drainage of pericardium where her pericardium was found to have dense fibrous tissue throughout. Today, Ms. Echeverria looks to be comfortable, lying there peacefully. She has been turned back and forth a number of times today without difficulty. Her vital signs show a maximum temperature (T max) of 96.1 with a heart rate that ranges between 95 and 100 and is sinus rhythm, a respiratory rate of 18 to 20 without the use of accessory muscles who is 93% saturated on room air, and whose blood pressure is ranging between 131/74 to 104/64. Her intake and output over the past 24 hours has been recorded as 2365 in and 498 out for a positivity of 1867 mL. She has put out 199 mL from the chest tube and only 5 mL today. Her weight today is 67.2 kg compared to 61.2 kg yesterday. On physical examination, her lungs show markedly decreased breath sounds on the left. Percussion note is dull at the base anteriorly. I hear rhonchi throughout both the expiratory and inspiratory phases on the right side. Cardiac exam shows very distant heart sounds, hardly audible. As such, I do not detect murmurs, clicks, gallops or rubs. I certainly cannot feel her point of maximum impulse (PMI). Abdomen is soft and nontender. Bowel sounds are present but hypoactive. Extremities who maybe trace pretibial edema. No calf tenderness. No differential swelling of the upper extremities. Skin is warm, dry and perfused without cyanosis or mottling, including that of the nail beds and the knees. Neck is supple. There is no jugular venous distention, no subcutaneous emphysema. Trachea is midline. Mouth shows her mucous membranes to be pink and moist. Lips and commissures without lesions. There is no thrush. Eyes show her pupils to be equal and reactive. Extraocular motions intact. Sclerae anicteric. Neurologic shows quadriplegia. Psychiatric shows her to be presumably awake but noncommunicative. Her white count today is 11.3 with a hemoglobin and hematocrit of 11.4 and 35.4 with a platelet count of 336. Differential shows 77% neutrophils, 10% lymphocytes, 7% monocytes. There are no immature forms. No toxic granulations. Electrolytes today are normal with a BUN and creatinine of 21 and 0.5 with a glucose of 180 and a calcium of 8.7. Pericardial fluid is negative for malignancy. Final pathology is pending. IMPRESSION: 1. Fibrosing pericarditis/mediastinitis. 2. Cerebral palsy from with quadriplegia. 3. Left pleural effusion, drained with a chest tube. 4. Recurrent aspiration pneumonia, being fed by GT tube. 5. Chronic hypothermia. 6. Profound mental retardation. 7. Seizure disorder. 8. Severe osteopenia. 9. Recurrent urinary tract infections. PLAN AND DISCUSSION: I will leave her chest tube in for today, but will probably take it out tomorrow. Her long-term prognosis with the fibrosing pericarditis is not good. We did get a history yesterday that she fell approximately 2 months ago. At that time, she fractured her humerus. On frozen section, there was evidence of old blood within this organizing fibrotic material. This may have been due to a fall as she was on Eliquis with a pericardial bleed with subsequent fibrosis. At this point, there is nothing to do for this. It will end up either resolving itself, which I highly doubt or go on to constrictive pericarditis, which is more likely.
[2018-08-21] MEDS: NS 1,000 ML IV SCH ×2 (01:53→10:35)
[2018-08-21] MEDS: LEVALBUTEROL 1.25 MG/0.5 ML CONCENTRATE NEB NEB SCH ×4 (01:53→20:25)
[2018-08-21 05:33] LABS: MEAN CORPUSCULAR HEMOGLOBIN 30.6 pg (27.0-33.0); MEAN CORPUSCULAR VOLUME 98.6 fl (80.0-96.0); PLATELET COUNT, AUTOMATED 329 10^3/uL (150-450); RED BLOOD COUNT 2.94 10^6/uL (4.00-5.40); WHITE BLOOD COUNT 7.8 10^3/uL (4.0-10.0)
[2018-08-21 06:24] LABS: BLOOD UREA NITROGEN 21 MG/DL (7-18); CALCIUM LEVEL 7.2 MG/DL (8.5-10.1); CARBON DIOXIDE LEVEL 28 MEQ/L (21-32); CHLORIDE LEVEL 111 MEQ/L (98-107); CREATININE FOR GFR 0.34 MG/DL (0.55-1.30); GLOMERULAR FILTRATION RATE > 60.0 (>60); GLUCOSE, FASTING 109 MG/DL (70-100); POTASSIUM SERUM 4.4 MEQ/L (3.5-5.1); SODIUM LEVEL 143 MEQ/L (136-145)
--- NOTE | 2018-08-21 08:29 | REP ---
AP PORTABLE CHEST: 08/21/2018. Comparison: 08/20/2018, 08/19/2018, 08/18/2018; CT 08/17/2018. Clinical history: Pleural effusion. Left sided chest tube is removed. Left subclavian catheter terminating in the right atrium near the SVC. Most of the left hemithorax is opacified. There is some aeration in the upper lung zone. Perihilar interstitial changes on the right. Lungs are hypoinflated. Gas fills colon and small bowel loops. Tubing overlies the upper abdomen which may be a jejunal feeding tube. There is ununited surgical neck fracture of the right humerus as before. With removal of the left chest tube, the aeration of the left upper lung zone has changed. There is still air present. A fluid level seen related to the effusion and/or atelectasis. It is extremely difficult to exclude pneumothorax on this limited study. Electronically Signed by Fermín Hansen MD 08/21/2018 09:29 A
[2018-08-21] MEDS: NYSTATIN 100,000 UNITS/GM TOPICAL PWD 15 GM TOP SCH ×2 (10:02→22:04)
[2018-08-21] MEDS: DOCUSATE SOD LIQ 100MG/10ML UDC GT SCH ×2 (10:02→21:44)
[2018-08-21] MEDS: CLORAZEPATE 3.75 MG TAB GT SCH ×2 (10:02→21:42)
[2018-08-21] MEDS: levETIRAcetam ORAL SOLUTION 500 MG/5 ML UDC GT SCH ×2 (10:02→21:43)
[2018-08-21] MEDS: MOM 30ML SUSPENSION UDC PO SCH (10:02)
[2018-08-21] MEDS: CYPROHEPTADINE 4 MG TAB GT SCH ×3 (10:03→21:42)
[2018-08-21] MEDS: COLCHICINE 0.6 MG TAB GT SCH (10:03)
[2018-08-21] MEDS: CALCIUM CARB SUSP 1250MG/5ML UNIT DOSE CUP GT SCH ×2 (10:03→21:43)
[2018-08-21] MEDS: LACOSAMIDE 50 MG TAB (VIMPAT) GT SCH ×2 (10:03→21:43)
[2018-08-21] MEDS ORDERED: SLF 3 ML SYR IV PRN (11:15)
--- NOTE | 2018-08-21 12:03 | IPNPDOC ---
Subjective Date Seen The patient was seen on 08/21/18. Subjective Chief Complaint/HPI Patient is still nonverbal. Is more active moving head around, looks at you when mention her name and smiles. No obvious distress. General: Reports: ROS Unobtainable Objective Physical Examination General Exam: Positive: Cooperative ENT Exam: Positive: Atraumatic Neck Exam: Positive: Supple Chest Exam: Positive: Rhonchi, Diminished Heart Exam: Positive: Rate Normal; Negative: Irregular Rhythm Abdomen Exam: Positive: Normal bowel sounds; Negative: Tenderness Extremity Exam: Negative: Edema Skin Exam: Negative: Rash Assessment /Plan Problems (1) Pericarditis Problem Text: Patient has Sclerosis Pericarditis per Dr. Sims. (2) Pericardial effusion Problem Text: 08/19 Patient has Sclerosis Pericarditis per Dr. Sims. This will progress likely and cause worsening heart failure. 08/18 Dr. Sims consulted. Plan is to go to OR today to relieve fluid. Cause is likely secondary to viral. CT chest 08/17 Large left pleural effusion occupying the entire left hemithorax with mediastinal shift to the right compatible with a tension pleural effusion. Small right pleural effusion. Large pericardial effusion. (3) Recurrent pleural effusion on left Status: Acute Problem Text: 08/20 Chest tube management by Dr. Sims. May have removed today pending output remains low. 08/19 CT noted pleural effusion, large on the left. Chest tube placed by Dr. Sims. Monitoring output. (4) Profound mental retardation Status: Chronic Problem Text: Patient is nonverbal. This is chronic and from an anoxic injury around . This significantly complicates her medical care. (5) Feeding by G-tube Status: Chronic Problem Text: She is not able to take any PO and receives all of her meds by G- tube and her enteral nutrition via J-tube. (6) CP (cerebral palsy), spastic, quadriplegic Status: Chronic Problem Text: This is chronic and from an anoxic injury around . This significantly complicates her medical care. Her anatomy is distorted making even basic procedure more difficult because of her unique anatomy. (7) Hypokalemia Status: Acute Problem Text: K was 3.4 this morning. Potassium added to IV fluids. Will recheck. (8) Urinary catheter in place Problem Text: Decreased output in urine cather overnight. IV fluids started. Plan/VTE VTE Prophylaxis Ordered?: Yes (Xarelto on hold) VS, I&O, 24H, Fishbone Vital Signs/I&O Vital Signs Date Time Temp Pulse Resp B/P (MAP) Pulse Ox O2 Delivery O2 Flow Rate FiO2 08/21/18 08:00 95.7 91 20 123/92 (102) 96 08/18/18 18:01 2.0 08/18/18 15:20 Room Air I&O- Last 24 Hours up to 6 AM 08/21/18 06:00 Intake Total 1885 ml Output Total 515 ml Balance 1370 ml Laboratory Data 24H LABS Laboratory Tests 2 08/21/18 05:04: Reticulocyte # (auto) 62.6, Nucleated Red Blood Cells % (auto) 0.0, Percent Reticulocyte Count 2.1H, Reticulocyte Hemoglobin Equivalent 27.8, Anion Gap 4L, Glomerular Filtration Rate > 60.0, Blood Urea Nitrogen 21H, Creatinine 0.34L, Sodium Level 143, Potassium Level 4.4, Chloride Level 111H, Carbon Dioxide Level 28, Calcium Level 7.2L CBC/BMP Laboratory Tests 08/21/18 05:04 Red Blood Count 2.94 L, Mean Corpuscular Volume 98.6 H, Mean Corpuscular Hemoglobin 30.6, Mean Corpuscular Hemoglobin Concent 31.0 L, Red Cell Distribution Width 15.9 H, Calcium Level 7.2 L Microbiology Microbiology 08/17/18 Blood Culture - Preliminary, Resulted No Growth after 72 hours. All specime... 08/17/18 Blood Culture - Preliminary, Resulted No Growth after 72 hours. All specime... 08/17/18 Acid Fast Stain, Received Pending 08/17/18 Mycobacterial Culture, Received Pending 08/17/18 Fungal Smear, Received Pending 08/17/18 Fungal Culture, Received Pending 08/17/18 Gram Stain - Final, Complete 08/17/18 Anaerobic Culture - Final, Complete 08/17/18 Body Fluid Culture - Final, Complete 08/17/18 Respiratory Virus Panel (PCR) (SUSAN) - Final, Complete 08/18/18 Acid Fast Stain, Received Pending 08/18/18 Mycobacterial Culture, Received Pending 08/18/18 Wound Culture - Final, Complete 08/18/18 Anaerobic Culture - Final, Complete 08/18/18 Fungal Smear, Received Pending 08/18/18 Fungal Culture, Received Pending GME ATTESTATION GME ATTESTATION My faculty preceptor for this patient encounter was physically present during the encounter and was fully available. All aspects of the patient interview, examination, medical decision making process, and medical care plan development were reviewed and approved by the faculty preceptor. The faculty preceptor is aware and concurs with the plan as stated in the body of this note and will attest to such by his/her cosignature. ATTENDING NOTE Patient is seen and examined. Case reviewed with Dr. Arias. TIKA ARIAS DO Aug 21, 2018 12:03 Jake Coates M.D. Aug 23, 2018 08:00
[2018-08-21] MEDS: SLF 3 ML SYR IV SCH ×2 (14:00→21:49)
[2018-08-21] MEDS: MINOCYCLINE 50 MG CAP GT SCH (21:42)
[2018-08-21] MEDS: CETIRIZINE (ZyrTEC) 10 MG TAB GT SCH (21:43)
[2018-08-21] MEDS: RIVAROXABAN 20 MG TAB (XARELTO) GT SCH (21:43)
[2018-08-21] MEDS: ERGOCALCIFEROL 8000 INTERNATIONAL UNITS/ML ORAL SOLN BTL 60ML GT SCH (21:45)
[2018-08-21] MEDS: MIRALAX *UNIT DOSE* 17GM PACKET GT SCH (21:46)
[2018-08-21] MEDS: MULTIVITAMINS LIQ DROPS 50 ML BTL GT SCH (21:48)
[2018-08-22] MEDS: LEVALBUTEROL 1.25 MG/0.5 ML CONCENTRATE NEB NEB SCH ×4 (01:47→20:21)
[2018-08-22 04:00] VITALS: BP 109/59
[2018-08-22] MEDS: SLF 3 ML SYR IV SCH (05:49)
[2018-08-22 05:59] LABS: BLOOD UREA NITROGEN 18 MG/DL (7-18); CALCIUM LEVEL 8.7 MG/DL (8.5-10.1); CARBON DIOXIDE LEVEL 27 MEQ/L (21-32); CHLORIDE LEVEL 109 MEQ/L (98-107); CREATININE FOR GFR 0.43 MG/DL (0.55-1.30); GLOMERULAR FILTRATION RATE > 60.0 (>60); GLUCOSE, FASTING 127 MG/DL (70-100); POTASSIUM SERUM 3.9 MEQ/L (3.5-5.1); SODIUM LEVEL 142 MEQ/L (136-145)
[2018-08-22 08:00] VITALS: BP 125/71
[2018-08-22] MEDS: MOM 30ML SUSPENSION UDC PO SCH (09:00)
[2018-08-22] MEDS: DOCUSATE SOD LIQ 100MG/10ML UDC GT SCH ×2 (09:00→20:49)
[2018-08-22] MEDS: LACOSAMIDE 50 MG TAB (VIMPAT) GT SCH ×2 (09:06→20:50)
[2018-08-22] MEDS: levETIRAcetam ORAL SOLUTION 500 MG/5 ML UDC GT SCH ×2 (09:06→20:50)
[2018-08-22] MEDS: CLORAZEPATE 3.75 MG TAB GT SCH ×2 (09:06→20:56)
[2018-08-22] MEDS: CALCIUM CARB SUSP 1250MG/5ML UNIT DOSE CUP GT SCH ×2 (09:06→20:49)
[2018-08-22] MEDS: CYPROHEPTADINE 4 MG TAB GT SCH ×3 (09:06→20:49)
[2018-08-22] MEDS: COLCHICINE 0.6 MG TAB GT SCH (09:07)
[2018-08-22] MEDS: NYSTATIN 100,000 UNITS/GM TOPICAL PWD 15 GM TOP SCH ×2 (09:07→21:45)
--- NOTE | 2018-08-22 11:05 | REP ---
AP PORTABLE CHEST: 08/22/2018. COMPARISON: 08/21/2018, 08/20/2018, and 08/19/2018. CLINICAL HISTORY: Pleural effusion. FINDINGS: Pleural line seen in the apex with a small apical pneumothorax on the left side with an air gap about 6 mm. There is now some aeration of the left lung with some subtle aeration seen in mid and lower lung zone. Overall better inflation. There is vascular congestion bilaterally, and superimposed infiltrates difficult to exclude. The left jugular central catheter is unchanged. Cardiac silhouette difficult to senior product manager, but there is left atrial enlargement, and right heart seems mildly prominent as well. Electronically Signed by Fermín Hansen MD 08/22/2018 11:26 A
[2018-08-22 12:00] VITALS: BP 137/77
[2018-08-22] MEDS ORDERED: SODIUM CHLORIDE 0.9% INJ 10 ML SYR IV PRN ×2 (14:15→14:30)
[2018-08-22 16:00] VITALS: BP 131/85
[2018-08-22 20:00] VITALS: BP 136/76
[2018-08-22] MEDS: MINOCYCLINE 50 MG CAP GT SCH (20:49)
[2018-08-22] MEDS: CETIRIZINE (ZyrTEC) 10 MG TAB GT SCH (20:50)
[2018-08-22] MEDS: RIVAROXABAN 20 MG TAB (XARELTO) GT SCH (20:50)
[2018-08-22] MEDS: ERGOCALCIFEROL 8000 INTERNATIONAL UNITS/ML ORAL SOLN BTL 60ML GT SCH (20:51)
[2018-08-22] MEDS: MULTIVITAMINS LIQ DROPS 50 ML BTL GT SCH (20:52)
[2018-08-22] MEDS: MIRALAX *UNIT DOSE* 17GM PACKET GT SCH (21:00)
[2018-08-22] MEDS: SODIUM CHLORIDE 0.9% INJ 10 ML SYR IV SCH (21:44)
[2018-08-22] MEDS ORDERED: SODIUM CHLORIDE 0.9% INJ 10 ML SYR IV SCH (22:00)
[2018-08-22 23:59] VITALS: BP 111/61
[2018-08-23] MEDS: LEVALBUTEROL 1.25 MG/0.5 ML CONCENTRATE NEB NEB SCH ×4 (00:54→19:43)
[2018-08-23 04:00] VITALS: BP 121/70
[2018-08-23] MEDS: SODIUM CHLORIDE 0.9% INJ 10 ML SYR IV SCH ×3 (05:21→22:00)
[2018-08-23 05:37] LABS: MEAN CORPUSCULAR HGB CONC 32.3 g/dl (32.0-36.5); PLATELET COUNT, AUTOMATED 353 10^3/uL (150-450); RED BLOOD COUNT 3.23 10^6/uL (4.00-5.40); WHITE BLOOD COUNT 7.3 10^3/uL (4.0-10.0)
[2018-08-23 06:00] LABS: BLOOD UREA NITROGEN 15 MG/DL (7-18); CALCIUM LEVEL 7.9 MG/DL (8.5-10.1); CARBON DIOXIDE LEVEL 28 MEQ/L (21-32); CHLORIDE LEVEL 107 MEQ/L (98-107); CREATININE FOR GFR 0.43 MG/DL (0.55-1.30); GLOMERULAR FILTRATION RATE > 60.0 (>60); GLUCOSE, FASTING 104 MG/DL (70-100); SODIUM LEVEL 142 MEQ/L (136-145)
[2018-08-23 08:00] VITALS: BP 98/56
--- NOTE | 2018-08-23 08:34 | REP ---
Chest one-view HISTORY: Pleural effusion Comparison: 08/22/2018 The previously noted small left apical pneumothorax is not seen. Increased density is present in the left mid and lower lung consistent with atelectasis or infiltrate. The heart is normal in size. The pulmonary vasculature is normal in appearance. A catheter is present in the region of the right atrium. Impression: Left mid and lower lung atelectasis or infiltrate. Electronically Signed by Cristhian Landry MD 08/23/2018 08:26 A
[2018-08-23] MEDS: CALCIUM CARB SUSP 1250MG/5ML UNIT DOSE CUP GT SCH ×2 (09:40→22:06)
[2018-08-23] MEDS: DOCUSATE SOD LIQ 100MG/10ML UDC GT SCH ×2 (09:40→22:05)
[2018-08-23] MEDS: MOM 30ML SUSPENSION UDC PO SCH (09:40)
[2018-08-23] MEDS: NYSTATIN 100,000 UNITS/GM TOPICAL PWD 15 GM TOP SCH ×2 (09:41→22:04)
[2018-08-23] MEDS: CLORAZEPATE 3.75 MG TAB GT SCH ×2 (09:41→23:10)
[2018-08-23] MEDS: COLCHICINE 0.6 MG TAB GT SCH (09:41)
[2018-08-23] MEDS: levETIRAcetam ORAL SOLUTION 500 MG/5 ML UDC GT SCH ×2 (09:41→22:04)
[2018-08-23] MEDS: LACOSAMIDE 50 MG TAB (VIMPAT) GT SCH ×2 (09:41→22:05)
[2018-08-23] MEDS: CYPROHEPTADINE 4 MG TAB GT SCH ×3 (09:41→22:05)
--- NOTE | 2018-08-23 11:49 | IPNPDOC ---
Subjective Date Seen The patient was seen on 08/23/18. Subjective Chief Complaint/HPI Patient nonverbal. No acute distress noted. Eyes: Denies: Pain Pulmonary: Denies: Dyspnea, Cough Cardiovascular: Denies: Chest Pain Objective Physical Examination General Exam: Positive: Cooperative ENT Exam: Positive: Atraumatic Neck Exam: Positive: Supple Chest Exam: Positive: Rhonchi, Diminished Heart Exam: Positive: Rate Normal; Negative: Irregular Rhythm Abdomen Exam: Positive: Normal bowel sounds; Negative: Tenderness Extremity Exam: Negative: Edema Skin Exam: Negative: Rash Assessment /Plan Problems (1) Pericarditis Problem Text: 08/23 Since patient's condition is chronic, debilitating and pr ogressive, discussing making patient RAMP ATTENDANT. Had conversations last week with mother and Dr. Page. 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 Continue to monitor at this time. 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 This will progress likely and cause worsening heart failure. 08/18 Dr. Sims consulted. Plan is to go to OR today to relieve fluid. Cause is likely secondary to viral. CT chest 08/17 Large left pleural effusion occupying the entire left hemithorax with mediastinal shift to the right compatible with a tension pleural effusion. Small right pleural effusion. Large pericardial effusion. (3) Recurrent pleural effusion on left Status: Acute Problem Text: 08/20 Chest tube management by Dr. Sims. May have removed today pending output remains low. 08/19 CT noted pleural effusion, large on the left. Chest tube placed by Dr. Sims. Monitoring output. (4) Profound mental retardation Status: Chronic Problem Text: Patient is nonverbal. This is chronic and from an anoxic injury around . This significantly complicates her medical care. (5) Feeding by G-tube Status: Chronic Problem Text: She is not able to take any PO and receives all of her meds by G- tube and her enteral nutrition via J-tube. (6) CP (cerebral palsy), spastic, quadriplegic Status: Chronic Problem Text: This is chronic and from an anoxic injury around . This significantly complicates her medical care. Her anatomy is distorted making even basic procedure more difficult because of her unique anatomy. (7) Hypokalemia Status: Acute Problem Text: K was 3.4 this morning. Potassium added to IV fluids. Will recheck. (8) Urinary catheter in place Status: Resolved Problem Text: Has been discontinued. Plan/VTE VTE Prophylaxis Ordered?: Yes (Xarelto on hold) VS, I&O, 24H, Fishbone Vital Signs/I&O Vital Signs Date Time Temp Pulse Resp B/P (MAP) Pulse Ox O2 Delivery O2 Flow Rate FiO2 08/23/18 08:00 97.6 96 18 98/56 (70) 93 08/18/18 18:01 2.0 08/18/18 15:20 Room Air I&O- Last 24 Hours up to 6 AM 08/23/18 06:00 Intake Total 1180 ml Output Total 100 ml Balance 1080 ml Laboratory Data 24H LABS Laboratory Tests 2 08/23/18 05:30: Nucleated Red Blood Cells % (auto) 0.0, Anion Gap 7L, Glomerular Filtration Rate > 60.0, Blood Urea Nitrogen 15, Creatinine 0.43L, Sodium Level 142, Potassium Level 4.0, Chloride Level 107, Carbon Dioxide Level 28, Calcium Level 7.9L CBC/BMP Laboratory Tests 08/23/18 05:30 Red Blood Count 3.23 L, Mean Corpuscular Volume 96.0, Mean Corpuscular Hemoglobin 31.0, Mean Corpuscular Hemoglobin Concent 32.3, Red Cell Distribution Width 16.0 H, Calcium Level 7.9 L Microbiology Microbiology 08/17/18 Blood Culture - Final, Complete NO GROWTH AFTER 5 DAYS 08/17/18 Blood Culture - Final, Complete NO GROWTH AFTER 5 DAYS 08/17/18 Acid Fast Stain, Received Pending 08/17/18 Mycobacterial Culture, Received Pending 08/17/18 Fungal Smear, Received Pending 08/17/18 Fungal Culture, Received Pending 08/17/18 Gram Stain - Final, Complete 08/17/18 Anaerobic Culture - Final, Complete 08/17/18 Body Fluid Culture - Final, Complete 08/17/18 Respiratory Virus Panel (PCR) (SUSAN) - Final, Complete 08/18/18 Acid Fast Stain, Received Pending 08/18/18 Mycobacterial Culture, Received Pending 08/18/18 Wound Culture - Final, Complete 08/18/18 Anaerobic Culture - Final, Complete 08/18/18 Fungal Smear, Received Pending 08/18/18 Fungal Culture, Received Pending GME ATTESTATION GME ATTESTATION My faculty preceptor for this patient encounter was physically present during the encounter and was fully available. All aspects of the patient interview, examination, medical decision making process, and medical care plan development were reviewed and approved by the faculty preceptor. The faculty preceptor is aware and concurs with the plan as stated in the body of this note and will attest to such by his/her cosignature. TIKA ARIAS DO Aug 23, 2018 11:49
[2018-08-23 12:00] VITALS: BP 127/70
[2018-08-23 16:00] VITALS: BP 123/72
[2018-08-23] MEDS: SCOPOLAMINE 1MG TRANSDERMAL PATCH TOP SCH (17:37)
--- NOTE | 2018-08-23 18:37 | IPN ---
DATE: 08/22/2018 The patient is seen today on progressive care unit (PCU). She has been stable since yesterday. No fevers, no respiratory distress, no vomiting. She has been alert and interactive with her mother and others. She continues to have a Todd catheter and she does have a central line in. She continues on ergocalciferol, vitamin C, colchicine, Colace, magnesium hydroxide, Vimpat. She has morphine ordered but has not used it in 4 days, calcium, Zyrtec, Tranxene, Periactin, Keppra, topical nystatin, MiraLax, Xarelto, minocycline, Vimpat, Xopenex, scopolamine. On examination, temperature is 98.2, pulse is 100 and regular, respiration rate is 20, blood pressure is 125/71, oxygen saturation 95% on room air. She is awake and alert. Does not appear at all in any distress. She is nonverbal except for what might pass as giggling or laughing. Eyes are clear. Mucous membranes are moist. No neck masses, tenderness or adenopathy. No carotid bruits. Lungs essentially clear with diminished breath sounds at the bases. Heart has a regular rhythm without any murmur, click or gallop. Abdomen soft and nontender without any masses or organomegaly. Bowel sounds are active. There is no edema. She has her percutaneous endoscopic gastrostomy (PEG) tube. Labs today show glucose of 127, BUN 18, creatinine 0.43, sodium 142, potassium 3.9. She had a chest x-ray today showing what appeared to be small apical pneumothorax on the left, some aeration of the left lung, vascular congestion bilaterally, left jugular central catheter unchanged, cardiac silhouette difficult to sound person, left atrial enlargement, right heart seems prominent. ASSESSMENT: 1. Constrictive pericarditis. 2. Pleural effusion, improved. 3. Profound mental retardation. 4. Gastrostomy (G) tube feedings. 5. Quadriplegic, cerebral palsy. 6. Hypoglycemia. 7. Urinary catheter. PLAN: At this point will discontinue her urinary catheter and this is in preparation to getting out of here. Her mother was present again today. It is likely that what is going to happen is that our request for palliative care will be reviewed while she is an outpatient rather than an inpatient but certainly she seems better than she was and probably back to her usual self, but future episodes of pneumonia or any symptoms of poor heart function would be likely not have a good outcome.
[2018-08-23 20:00] VITALS: BP 107/57
[2018-08-23] MEDS: MINOCYCLINE 50 MG CAP GT SCH (22:04)
[2018-08-23] MEDS: RIVAROXABAN 20 MG TAB (XARELTO) GT SCH (22:05)
[2018-08-23] MEDS: CETIRIZINE (ZyrTEC) 10 MG TAB GT SCH (22:05)
[2018-08-23] MEDS: MIRALAX *UNIT DOSE* 17GM PACKET GT SCH (22:06)
[2018-08-23] MEDS: ERGOCALCIFEROL 8000 INTERNATIONAL UNITS/ML ORAL SOLN BTL 60ML GT SCH (22:07)
[2018-08-23] MEDS: MULTIVITAMINS LIQ DROPS 50 ML BTL GT SCH (22:07)
[2018-08-23 23:59] VITALS: BP 129/74
[2018-08-24] MEDS: LEVALBUTEROL 1.25 MG/0.5 ML CONCENTRATE NEB NEB SCH ×5 (01:38→23:46)
[2018-08-24] MEDS: ACETAMINOPHEN 650 MG SUPP PR PRN ×2 (02:22→20:47)
[2018-08-24 04:00] VITALS: BP 100/55
[2018-08-24] MEDS: MORPHINE 4 MG/ML 1ML VIAL/SYRINGE (J2270) IV PRN (04:45)
[2018-08-24] MEDS: SODIUM CHLORIDE 0.9% INJ 10 ML SYR IV SCH ×3 (04:46→20:51)
[2018-08-24 08:00] VITALS: BP 102/58
[2018-08-24] MEDS: CALCIUM CARB SUSP 1250MG/5ML UNIT DOSE CUP GT SCH ×2 (08:51→20:49)
[2018-08-24] MEDS: levETIRAcetam ORAL SOLUTION 500 MG/5 ML UDC GT SCH ×2 (08:51→20:49)
[2018-08-24] MEDS: MOM 30ML SUSPENSION UDC PO SCH (08:51)
[2018-08-24] MEDS: DOCUSATE SOD LIQ 100MG/10ML UDC GT SCH ×2 (08:51→20:46)
[2018-08-24] MEDS: CYPROHEPTADINE 4 MG TAB GT SCH ×3 (08:52→20:46)
[2018-08-24] MEDS: NYSTATIN 100,000 UNITS/GM TOPICAL PWD 15 GM TOP SCH ×2 (08:52→20:49)
[2018-08-24] MEDS: COLCHICINE 0.6 MG TAB GT SCH (08:52)
[2018-08-24] MEDS: CLORAZEPATE 3.75 MG TAB GT SCH ×2 (08:52→20:48)
[2018-08-24] MEDS: LACOSAMIDE 50 MG TAB (VIMPAT) GT SCH ×2 (08:52→20:45)
--- NOTE | 2018-08-24 10:12 | IPNPDOC ---
Subjective Date Seen The patient was seen on 08/24/18. Subjective Chief Complaint/HPI No new concerns per nursing this morning. [facility] staff at bedside. General: Reports: ROS Unobtainable Objective Physical Examination General Exam: Positive: Cooperative ENT Exam: Positive: Atraumatic Neck Exam: Positive: Supple Chest Exam: Positive: Rhonchi, Diminished Heart Exam: Positive: Rate Normal; Negative: Irregular Rhythm Abdomen Exam: Positive: Normal bowel sounds; Negative: Tenderness Extremity Exam: Negative: Edema Skin Exam: Negative: Rash Assessment /Plan Assessment Agree with below. -- CDT Problems (1) Pericarditis Problem Text: 08/24 [facility], [facility] actively following. Per pt's mother requesting BACK END ENGINEER, with transition home on Hospice 08/23 Since patient's condition is chronic, debilitating and progressive, discussing making patient BACK END ENGINEER. Had conversations last week with mother and Dr. Page. 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 Continue to monitor at this time. 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 This will progress likely and cause worsening heart failure. 08/18 Dr. Sism consulted. Plan is to go to OR today to relieve fluid. Cause is likely secondary to viral. CT chest 08/17 Large left pleural effusion occupying the entire left hemithorax with mediastinal shift to the right compatible with a tension pleural effusion. Small right pleural effusion. Large pericardial effusion. (3) Recurrent pleural effusion on left Status: Acute Problem Text: 08/20 Chest tube management by Dr. Sims. May have removed today pending output remains low. 08/19 CT noted pleural effusion, large on the left. Chest tube placed by Dr. Sims. Monitoring output. (4) Profound mental retardation Status: Chronic Problem Text: Patient is nonverbal. This is chronic and from an anoxic injury around . This significantly complicates her medical care. (5) Feeding by G-tube Status: Chronic Problem Text: She is not able to take any PO and receives all of her meds by G- tube and her enteral nutrition via J-tube. (6) CP (cerebral palsy), spastic, quadriplegic Status: Chronic Problem Text: This is chronic and from an anoxic injury around . This significantly complicates her medical care. Her anatomy is distorted making even basic procedure more difficult because of her unique anatomy. (7) Hypokalemia Status: Acute Problem Text: K was 3.4 this morning. Potassium added to IV fluids. Will recheck. (8) Urinary catheter in place Status: Resolved Problem Text: Has been discontinued. Plan/VTE VTE Prophylaxis Ordered?: Yes (Xarelto on hold) VS, I&O, 24H, Fishbone Vital Signs/I&O Vital Signs Date Time Temp Pulse Resp B/P (MAP) Pulse Ox O2 Delivery O2 Flow Rate FiO2 08/24/18 08:00 97.0 88 20 102/58 (73) 95 08/18/18 18:01 2.0 08/18/18 15:20 Room Air I&O- Last 24 Hours up to 6 AM 08/24/18 06:00 Intake Total 530 ml Balance 530 ml Laboratory Data Microbiology Microbiology 08/17/18 Blood Culture - Final, Complete NO GROWTH AFTER 5 DAYS 08/17/18 Blood Culture - Final, Complete NO GROWTH AFTER 5 DAYS 08/17/18 Acid Fast Stain, Received Pending 08/17/18 Mycobacterial Culture, Received Pending 08/17/18 Fungal Smear, Received Pending 08/17/18 Fungal Culture, Received Pending 08/17/18 Gram Stain - Final, Complete 08/17/18 Anaerobic Culture - Final, Complete 08/17/18 Body Fluid Culture - Final, Complete 08/17/18 Respiratory Virus Panel (PCR) (SUSAN) - Final, Complete 08/18/18 Acid Fast Stain, Received Pending 08/18/18 Mycobacterial Culture, Received Pending 08/18/18 Wound Culture - Final, Complete 08/18/18 Anaerobic Culture - Final, Complete 08/18/18 Fungal Smear, Received Pending 08/18/18 Fungal Culture, Received Pending LANIE YORK PA-C Aug 24, 2018 10:12 BEATRICE COSME DO Aug 24, 2018 23:56
[2018-08-24 12:00] VITALS: BP 110/70
[2018-08-24 16:00] VITALS: BP 102/68
[2018-08-24 20:00] VITALS: BP 136/84
[2018-08-24] MEDS: MIRALAX *UNIT DOSE* 17GM PACKET GT SCH (20:46)
[2018-08-24] MEDS: MINOCYCLINE 50 MG CAP GT SCH (20:48)
[2018-08-24] MEDS: RIVAROXABAN 20 MG TAB (XARELTO) GT SCH (20:49)
[2018-08-24] MEDS: CETIRIZINE (ZyrTEC) 10 MG TAB GT SCH (20:49)
[2018-08-24] MEDS: MULTIVITAMINS LIQ DROPS 50 ML BTL GT SCH (20:50)
[2018-08-24] MEDS: ERGOCALCIFEROL 8000 INTERNATIONAL UNITS/ML ORAL SOLN BTL 60ML GT SCH (20:50)
[2018-08-24 23:59] VITALS: BP 111/74
[2018-08-25 04:00] VITALS: BP 112/65
[2018-08-25] MEDS: SODIUM CHLORIDE 0.9% INJ 10 ML SYR IV SCH ×3 (04:53→22:00)
[2018-08-25 05:03] LABS: HEMATOCRIT 32.5 % (36.0-47.0); HEMOGLOBIN 10.3 g/dl (12.0-15.5); MEAN CORPUSCULAR HEMOGLOBIN 30.7 pg (27.0-33.0); MEAN CORPUSCULAR HGB CONC 31.7 g/dl (32.0-36.5); PLATELET COUNT, AUTOMATED 372 10^3/uL (150-450); RED BLOOD COUNT 3.35 10^6/uL (4.00-5.40); WHITE BLOOD COUNT 7.6 10^3/uL (4.0-10.0)
[2018-08-25 05:23] LABS: BLOOD UREA NITROGEN 14 MG/DL (7-18); CALCIUM LEVEL 8.4 MG/DL (8.5-10.1); CARBON DIOXIDE LEVEL 29 MEQ/L (21-32); CHLORIDE LEVEL 106 MEQ/L (98-107); CREATININE FOR GFR 0.41 MG/DL (0.55-1.30); GLOMERULAR FILTRATION RATE > 60.0 (>60); GLUCOSE, FASTING 123 MG/DL (70-100); POTASSIUM SERUM 4.1 MEQ/L (3.5-5.1); SODIUM LEVEL 140 MEQ/L (136-145)
[2018-08-25] MEDS: LEVALBUTEROL 1.25 MG/0.5 ML CONCENTRATE NEB NEB SCH ×3 (06:09→21:03)
[2018-08-25 08:00] VITALS: BP 131/79
[2018-08-25] MEDS: CALCIUM CARB SUSP 1250MG/5ML UNIT DOSE CUP GT SCH ×2 (09:39→21:58)
[2018-08-25] MEDS: CYPROHEPTADINE 4 MG TAB GT SCH ×3 (09:39→22:02)
[2018-08-25] MEDS: DOCUSATE SOD LIQ 100MG/10ML UDC GT SCH ×2 (09:39→21:58)
[2018-08-25] MEDS: levETIRAcetam ORAL SOLUTION 500 MG/5 ML UDC GT SCH ×2 (09:39→22:00)
[2018-08-25] MEDS: MOM 30ML SUSPENSION UDC PO SCH (09:39)
[2018-08-25] MEDS: LACOSAMIDE 50 MG TAB (VIMPAT) GT SCH ×2 (09:39→21:58)
[2018-08-25] MEDS: NYSTATIN 100,000 UNITS/GM TOPICAL PWD 15 GM TOP SCH ×2 (09:40→22:03)
[2018-08-25] MEDS: ACETAMINOPHEN 650 MG SUPP PR PRN ×3 (09:40→22:01)
[2018-08-25] MEDS: CLORAZEPATE 3.75 MG TAB GT SCH ×2 (09:40→22:00)
[2018-08-25] MEDS: COLCHICINE 0.6 MG TAB GT SCH (09:40)
[2018-08-25 12:00] VITALS: BP 116/60
--- NOTE | 2018-08-25 13:29 | IPNPDOC ---
Subjective Date Seen The patient was seen on 08/25/18. Subjective Chief Complaint/HPI Patient lying in bed when I entered the room. No [facility] staff were present. Patient appeared comfortable General: Reports: ROS Unobtainable Objective Physical Examination General Exam: Positive: Cooperative, No Acute Distress ENT Exam: Positive: Atraumatic Neck Exam: Positive: Supple Chest Exam: Positive: Rhonchi, Diminished Heart Exam: Positive: Rate Normal; Negative: Irregular Rhythm Abdomen Exam: Positive: Normal bowel sounds; Negative: Tenderness Extremity Exam: Negative: Edema Skin Exam: Negative: Rash Assessment /Plan Assessment 08/26 -- Reviewed paperwork in chart and confirmed with PFS (Moises Patel) that we could proceed with comfort measures for Ms. Echeverria. Her mother and guardian came in this afternoon; we reviewed and filled out a MOLST form. Problems (1) Pericarditis Problem Text: 08/25/18:We are still awaiting input from [facility]. Moises Patel will continue to work on that today. 08/24 Await input from [facility], PFS actively following. Per pt's mother requesting SWEET POTATO DISINTEGRATOR, with transition home on Hospice 08/23 Since patient's condition is chronic, debilitating and progressive, discussing making patient SWEET POTATO DISINTEGRATOR. Had conversations last week with mother and Dr. Page. 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 Continue to monitor at this time. 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 This will progress likely and cause worsening heart failure. 08/18 Dr. Sims consulted. Plan is to go to OR today to relieve fluid. Cause is likely secondary to viral. CT chest 08/17 Large left pleural effusion occupying the entire left hemithorax with mediastinal shift to the right compatible with a tension pleural effusion. Small right pleural effusion. Large pericardial effusion. (3) Recurrent pleural effusion on left Status: Acute Problem Text: 08/20 Chest tube management by Dr. Sims. May have removed today pending output remains low. 08/19 CT noted pleural effusion, large on the left. Chest tube placed by Dr. Sims. Monitoring output. (4) Profound mental retardation Status: Chronic Problem Text: Patient is nonverbal. This is chronic and from an anoxic injury around . This significantly complicates her medical care. (5) Feeding by G-tube Status: Chronic Problem Text: She is not able to take any PO and receives all of her meds by G- tube and her enteral nutrition via J-tube. (6) CP (cerebral palsy), spastic, quadriplegic Status: Chronic Problem Text: This is chronic and from an anoxic injury around . This significantly complicates her medical care. Her anatomy is distorted making even basic procedure more difficult because of her unique anatomy. (7) Hypokalemia Status: Acute Problem Text: K was 3.4 this morning. Potassium added to IV fluids. Will recheck. (8) Urinary catheter in place Status: Resolved Problem Text: Has been discontinued. Plan/VTE VTE Prophylaxis Ordered?: Yes (Xarelto on hold) VS, I&O, 24H, Fishbone Vital Signs/I&O Vital Signs Date Time Temp Pulse Resp B/P (MAP) Pulse Ox O2 Delivery O2 Flow Rate FiO2 08/25/18 08:00 98.5 95 22 131/79 (96) 96 I&O- Last 24 Hours up to 6 AM 08/25/18 06:00 Intake Total 150 ml Balance 150 ml Laboratory Data 24H LABS Laboratory Tests 2 08/25/18 04:52: Nucleated Red Blood Cells % (auto) 0.0, Anion Gap 5L, Glomerular Filtration Rate > 60.0, Blood Urea Nitrogen 14, Creatinine 0.41L, Sodium Level 140, Potassium Level 4.1, Chloride Level 106, Carbon Dioxide Level 29, Calcium Level 8.4L CBC/BMP Laboratory Tests 08/25/18 04:52 Red Blood Count 3.35 L, Mean Corpuscular Volume 97.0 H, Mean Corpuscular Hemoglobin 30.7, Mean Corpuscular Hemoglobin Concent 31.7 L, Red Cell Distribution Width 16.4 H, Calcium Level 8.4 L Microbiology Microbiology 08/17/18 Blood Culture - Final, Complete NO GROWTH AFTER 5 DAYS 08/17/18 Blood Culture - Final, Complete NO GROWTH AFTER 5 DAYS 08/17/18 Acid Fast Stain, Received Pending 08/17/18 Mycobacterial Culture, Received Pending 08/17/18 Fungal Smear, Received Pending 08/17/18 Fungal Culture, Received Pending 08/17/18 Gram Stain - Final, Complete 08/17/18 Anaerobic Culture - Final, Complete 08/17/18 Body Fluid Culture - Final, Complete 08/17/18 Respiratory Virus Panel (PCR) (SUSAN) - Final, Complete 08/18/18 Acid Fast Stain, Received Pending 08/18/18 Mycobacterial Culture, Received Pending 08/18/18 Wound Culture - Final, Complete 08/18/18 Anaerobic Culture - Final, Complete 08/18/18 Fungal Smear, Received Pending 08/18/18 Fungal Culture, Received Pending JOSLYN ANNE Aug 25, 2018 11:02 BEATRICE COSME DO Aug 26, 2018 01:15
[2018-08-25 16:00] VITALS: BP 132/88
[2018-08-25 20:00] VITALS: BP 128/67
[2018-08-25] MEDS: MIRALAX *UNIT DOSE* 17GM PACKET GT SCH (21:58)
[2018-08-25] MEDS: CETIRIZINE (ZyrTEC) 10 MG TAB GT SCH (21:59)
[2018-08-25] MEDS: RIVAROXABAN 20 MG TAB (XARELTO) GT SCH (21:59)
[2018-08-25] MEDS: MULTIVITAMINS LIQ DROPS 50 ML BTL GT SCH (22:01)
[2018-08-25] MEDS: ERGOCALCIFEROL 8000 INTERNATIONAL UNITS/ML ORAL SOLN BTL 60ML GT SCH (22:01)
[2018-08-25] MEDS: MINOCYCLINE 50 MG CAP GT SCH (22:02)
[2018-08-25 23:59] VITALS: BP 123/72
[2018-08-26] MEDS: MORPHINE 4 MG/ML 1ML VIAL/SYRINGE (J2270) IV PRN (00:02)
[2018-08-26] MEDS: LEVALBUTEROL 1.25 MG/0.5 ML CONCENTRATE NEB NEB SCH ×3 (02:03→13:18)
[2018-08-26 04:00] VITALS: BP 133/63
[2018-08-26] MEDS: ACETAMINOPHEN 650 MG SUPP PR PRN (05:13)
[2018-08-26] MEDS: SODIUM CHLORIDE 0.9% INJ 10 ML SYR IV SCH ×2 (05:21→15:19)
[2018-08-26 05:31] LABS: HEMATOCRIT 33.4 % (36.0-47.0); HEMOGLOBIN 10.6 g/dl (12.0-15.5); MEAN CORPUSCULAR HEMOGLOBIN 30.3 pg (27.0-33.0); MEAN CORPUSCULAR HGB CONC 31.7 g/dl (32.0-36.5); MEAN CORPUSCULAR VOLUME 95.4 fl (80.0-96.0); PLATELET COUNT, AUTOMATED 401 10^3/uL (150-450); WHITE BLOOD COUNT 7.4 10^3/uL (4.0-10.0)
[2018-08-26 07:38] VITALS: BP 118/81
[2018-08-26] MEDS: CALCIUM CARB SUSP 1250MG/5ML UNIT DOSE CUP GT SCH (09:38)
[2018-08-26] MEDS: MOM 30ML SUSPENSION UDC PO SCH (09:39)
[2018-08-26] MEDS: levETIRAcetam ORAL SOLUTION 500 MG/5 ML UDC GT SCH ×2 (09:39→22:47)
[2018-08-26] MEDS: DOCUSATE SOD LIQ 100MG/10ML UDC GT SCH ×2 (09:39→21:00)
[2018-08-26] MEDS: LACOSAMIDE 50 MG TAB (VIMPAT) GT SCH ×2 (09:40→22:49)
[2018-08-26] MEDS: CYPROHEPTADINE 4 MG TAB GT SCH ×3 (09:40→22:48)
[2018-08-26] MEDS: COLCHICINE 0.6 MG TAB GT SCH (09:40)
[2018-08-26] MEDS: NYSTATIN 100,000 UNITS/GM TOPICAL PWD 15 GM TOP SCH ×2 (09:41→22:49)
[2018-08-26 12:00] VITALS: BP 114/65
[2018-08-26] MEDS: CLORAZEPATE 3.75 MG TAB GT SCH ×2 (12:14→22:48)
[2018-08-26] MEDS ORDERED: LORazepam 1 MG TAB SL PRN (14:45)
[2018-08-26] MEDS ORDERED: MORPHINE 10MG/0.5ML ORAL CONCENTRATE SOLUTION U/D SL PRN (14:45)
[2018-08-26] MEDS: SCOPOLAMINE 1MG TRANSDERMAL PATCH TOP SCH (17:51)
--- NOTE | 2018-08-26 20:35 | IPNPDOC ---
Subjective Date Seen The patient was seen on 08/26/18. Subjective Chief Complaint/HPI Patient is comfortable sitting in bed. General: Reports: ROS Unobtainable Objective Physical Examination General Exam: Positive: Cooperative, No Acute Distress ENT Exam: Positive: Atraumatic Neck Exam: Positive: Supple Chest Exam: Positive: Diminished Heart Exam: Positive: Rate Normal; Negative: Irregular Rhythm Abdomen Exam: Positive: Normal bowel sounds; Negative: Tenderness Extremity Exam: Negative: Edema Skin Exam: Negative: Rash Assessment /Plan Problems (1) Pericarditis Problem Text: 08/26 Non contest letter arrive today. 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 Will discontinue some of medications in preparation for discharge in the next few days back to [facility]. 08/25/18:We are still awaiting input from [facility]. Moises Patel will continue to work on that today. 08/24 Await input from [facility], PFS actively following. Per pt's mother requesting CROSS COUNTRY TRUCK DRIVER, with transition home on Hospice 08/23 Since patient's condition is chronic, debilitating and progressive, discussing making patient CROSS COUNTRY TRUCK DRIVER. Had conversations last week with mother and Dr. Page. 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 Continue to monitor at this time. 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 This will progress likely and cause worsening heart failure. 08/18 Dr. Sims consulted. Plan is to go to OR today to relieve fluid. Cause is likely secondary to viral. CT chest 08/17 Large left pleural effusion occupying the entire left hemithorax with mediastinal shift to the right compatible with a tension pleural effusion. Small right pleural effusion. Large pericardial effusion. (3) Recurrent pleural effusion on left Status: Acute Problem Text: Was removed last week. Has not worsened since removal. 08/20 Chest tube management by Dr. Sims. May have removed today pending output remains low. 08/19 CT noted pleural effusion, large on the left. Chest tube placed by Dr. Sims. Monitoring output. (4) Profound mental retardation Status: Chronic Problem Text: Patient is nonverbal. This is chronic and from an anoxic injury around . This significantly complicates her medical care. (5) Feeding by G-tube Status: Chronic Problem Text: She is not able to take any PO and receives all of her meds by G- tube and her enteral nutrition via J-tube. (6) CP (cerebral palsy), spastic, quadriplegic Status: Chronic Problem Text: This is chronic and from an anoxic injury around . This significantly complicates her medical care. Her anatomy is distorted making even basic procedure more difficult because of her unique anatomy. (7) Hypokalemia Status: Resolved Problem Text: Has been normal for a few days. Repeat in AM. K was 3.4 this morning. Potassium added to IV fluids. Will recheck. Plan/VTE VTE Prophylaxis Ordered?: Yes (Xarelto on hold) VS, I&O, 24H, Fishbone Vital Signs/I&O Vital Signs Date Time Temp Pulse Resp B/P (MAP) Pulse Ox O2 Delivery O2 Flow Rate FiO2 08/26/18 12:00 98.4 95 20 114/65 (81) 99 I&O- Last 24 Hours up to 6 AM 08/26/18 06:00 Intake Total 520 ml Output Total 0 ml Balance 520 ml Laboratory Data 24H LABS Laboratory Tests 2 08/26/18 05:12: Nucleated Red Blood Cells % (auto) 0.0 CBC/BMP Laboratory Tests 08/26/18 05:12 Red Blood Count 3.50 L, Mean Corpuscular Volume 95.4, Mean Corpuscular Hemoglobin 30.3, Mean Corpuscular Hemoglobin Concent 31.7 L, Red Cell Distribution Width 16.7 H Microbiology Microbiology 08/17/18 Blood Culture - Final, Complete NO GROWTH AFTER 5 DAYS 08/17/18 Blood Culture - Final, Complete NO GROWTH AFTER 5 DAYS 08/17/18 Acid Fast Stain, Received Pending 08/17/18 Mycobacterial Culture, Received Pending 08/17/18 Fungal Smear, Received Pending 08/17/18 Fungal Culture, Received Pending 08/17/18 Gram Stain - Final, Complete 08/17/18 Anaerobic Culture - Final, Complete 08/17/18 Body Fluid Culture - Final, Complete 08/17/18 Respiratory Virus Panel (PCR) (SUSAN) - Final, Complete 08/18/18 Acid Fast Stain, Received Pending 08/18/18 Mycobacterial Culture, Received Pending 08/18/18 Wound Culture - Final, Complete 08/18/18 Anaerobic Culture - Final, Complete 08/18/18 Fungal Smear, Received Pending 08/18/18 Fungal Culture, Received Pending GME ATTESTATION GME ATTESTATION My faculty preceptor for this patient encounter was physically present during the encounter and was fully available. All aspects of the patient interview, examination, medical decision making process, and medical care plan development were reviewed and approved by the faculty preceptor. The faculty preceptor is aware and concurs with the plan as stated in the body of this note and will attest to such by his/her cosignature. TIKA ARIAS DO Aug 26, 2018 20:35
[2018-08-26] MEDS: MIRALAX *UNIT DOSE* 17GM PACKET GT SCH (21:00)
[2018-08-26] MEDS: CETIRIZINE (ZyrTEC) 10 MG TAB GT SCH (22:49)
[2018-08-27] MEDS: levETIRAcetam ORAL SOLUTION 500 MG/5 ML UDC GT SCH (08:43)
[2018-08-27] MEDS: COLCHICINE 0.6 MG TAB GT SCH (08:43)
[2018-08-27] MEDS: LACOSAMIDE 50 MG TAB (VIMPAT) GT SCH (08:43)
[2018-08-27] MEDS: DOCUSATE SOD LIQ 100MG/10ML UDC GT SCH (08:43)
[2018-08-27] MEDS: CYPROHEPTADINE 4 MG TAB GT SCH (08:43)
[2018-08-27] MEDS: NYSTATIN 100,000 UNITS/GM TOPICAL PWD 15 GM TOP SCH (08:44)
[2018-08-27] MEDS: CLORAZEPATE 3.75 MG TAB GT SCH (08:52)
--- NOTE | 2018-08-27 20:00 | DS.PDOC ---
Discharge Summary General Date of Admission Aug 17, 2018 at 11:35 Date of Discharge Aug 27, 2018 Primary Care Physician: Efrain Lara MD Attending Physician: BEATRICE COSME DO Specialist/Consultants Involve: Conrado Sims M.D. Discharge Summary PROCEDURES PERFORMED DURING STAY: Chest Tube, Pericardiocentesis, attempted tube pericardiostomy ADMITTING DIAGNOSES: 1. Pericardial Effusion 2. Left Pleural Effusion DISCHARGE DIAGNOSES: 1. 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 Constrictive Pericarditis 3. Recurrent aspirations COMPLICATIONS/CHIEF COMPLAINT: Pericardial Effusion Pleural Effusion Left. HISTORY OF PRESENT ILLNESS: Patient is a 37 year old female with past medical history of profound mental retardation, congenital spastic quadriparesis, r ecurrent aspirations presented to the ER with dyspnea. On day of admission patient had more dyspnea at [facility] than normal. Patient was given a couple nebulizers and did not have improvement. Was sent to ER for evaluation. She was just discharged from hospital for left sided pneumonia about 11 days ago and had completed antibiotic course. HOSPITAL COURSE: Patient in the ER had chest radiograph and CT scan that showed left sided pleural effusion. Patient has history of recurrent aspirations and has a PEG tube. Dr. Sims, cardiothoracic surgeon was consulted and a chest tube was placed. About 1000 mL of serosanguineous fluid was collected. Patient also had pericardiocentesis by Dr. Sims with attempted tube pericardiostomy. However it was found that patient's cardiac effusion was constrictive pericarditis. Patient's mother is day care teacher and was discussed that current condition will continue to worsen over the next couple years. This will cause worsening heart failure and . After discussing with mother it was decided to apply for checklist for patient to become BREAKFAST AND ROOM ATTENDANT. Patient had previously been DNR but not DNI. This application process was completed and patient became DNR, DNI and BREAKFAST AND ROOM ATTENDANT. DISCHARGE MEDICATIONS: Please see below. ALLERGIES: Please see below. PHYSICAL EXAMINATION ON DISCHARGE: VITAL SIGNS: Please see below. GENERAL: Cooperative, nonverbal. HEENT: Atraumatic. NECK: Supple. CARDIOVASCULAR EXAMINATION: Distant heart sounds. RESPIRATORY EXAMINATION: Rhonchi bilaterally. ABDOMINAL EXAMINATION: Soft, nondistended. EXTREMITIES: No extremity edema. NEUROLOGICAL EXAMINATION: Responds to name. LABORATORY DATA: Please see below. IMAGING: Chest radiograph 08/17 There is complete opacification of the left hemithorax as a progressive change from the comparison study. The mediastinum appears shifted to the right. This may represent a large pleural effusion or combination of pleural effusion and left lung consolidation. Consider follow-up chest CT. Right lung appears clear. There is an old ununited fracture of the right proximal humerus. Impression: Complete opacification of the left hemithorax. Consider follow-up CT. Chest CT 08/17 Large left pleural effusion occupying the entire left hemithorax with mediastinal shift to the right compatible with a tension pleural effusion. Small right pleural effusion. Large pericardial effusion. Chest CT 08/17 (after chest tube) There has been interval placement of a left thoracotomy tube. The previous large left pleural effusion has been almost entirely evacuated. There is atelectasis in the left lung. There is a small left pneumothorax. There is a pericardial effusion measuring 2.7 cm depth posteriorly. This measured 3 cm on the comparison study. There is a small right pleural effusion, unchanged. The atelectasis in the right lung has improved slightly There is a left subclavian central venous catheter with the tip in the superior vena cava as an interval change. There is tubing within bowel loops in the abdomen, possibly a J tube. Chest radiograph 08/23 Left mid and lower lung atelectasis or infiltrate. PROGNOSIS: Stable ACTIVITY: As tolerated. DIET: PEG tube DISCHARGE PLAN: [facility], BREAKFAST AND ROOM ATTENDANT DISPOSITION: 70 Xfer Other. DISCHARGE INSTRUCTIONS: 1. Back to [facility] 2. BREAKFAST AND ROOM ATTENDANT 3. Meet with Hospice Thursday 4. Follow up with Dr. Lara DISCHARGE CONDITION: Stable. TIME SPENT ON DISCHARGE: Greater than 20 minutes. Vital Signs/I&Os Vital Signs Date Time Temp Pulse Resp B/P (MAP) Pulse Ox O2 Delivery O2 Flow Rate FiO2 08/26/18 12:00 98.4 95 20 114/65 (81) 99 I&O- Last 24 Hours up to 6 AM 08/27/18 06:00 Intake Total 400 ml Output Total 0 ml Balance 400 ml Microbiology Microbiology 08/17/18 Blood Culture - Final, Complete NO GROWTH AFTER 5 DAYS 08/17/18 Blood Culture - Final, Complete NO GROWTH AFTER 5 DAYS 08/17/18 Acid Fast Stain, Received Pending 08/17/18 Mycobacterial Culture, Received Pending 08/17/18 Fungal Smear, Received Pending 08/17/18 Fungal Culture, Received Pending 08/17/18 Gram Stain - Final, Complete 08/17/18 Anaerobic Culture - Final, Complete 08/17/18 Body Fluid Culture - Final, Complete 08/17/18 Respiratory Virus Panel (PCR) (SUSAN) - Final, Complete 08/18/18 Acid Fast Stain, Received Pending 08/18/18 Mycobacterial Culture, Received Pending 08/18/18 Wound Culture - Final, Complete 08/18/18 Anaerobic Culture - Final, Complete 08/18/18 Fungal Smear, Received Pending 08/18/18 Fungal Culture, Received Pending Discharge Medications Scheduled (Jevity 1.5 Cedric) 1 Liq Liq, 2 LIQ JT QPM, (Reported) (Benzoyl Peroxide Wash) 10 % Liq, 1 DOSE TOP BID, (Reported) APPLY TO FACE AND EARS (Hibiclens) 4 % Liq, 1 DOSE TOP QHS, (Reported) WASH BEHIND EARS, AND ARMPITS DAILY (Promod) 1 Liq Liq, 60 CC GT QHS, (Reported) MIX WITH 30CC WATER Cetirizine HCl (Zyrtec Allergy) 10 Mg Tab, 10 MG GT QHS, (Reported) Clindamycin Phosphate (Clindagel) 1 % Gel, 1 DOSE TOP BID, (Reported) TO FACE, UNDERARMS AND BEHIND EARS Clorazepate Dipotassium (Tranxene T) 7.5 Mg Tab, 7.5 MG GT BID, (Reported) Cyproheptadine HCl (Cyproheptadine HCl) 4 Mg Tab, 8 MG GT TID, (Reported) Ipratropium [place] (Ipratropium [place]) 0.5 Mg/2.5 Ml Soln, 0.5 MG INH QID, ( Reported) MAY MIX WITH LEVALBUTEROL Lacosamide (Vimpat) 10 Mg/Ml Caroline, 5 ML GT QAM, (Reported) Lacosamide (Vimpat) 10 Mg/Ml Caroline, 7.5 ML GT QHS, (Reported) Levalbuterol Hydrochloride (Levalbuterol HCl) 1.25 Mg/3 Ml Neb, 1.25 MG INH QID, (Reported) MAY MIX WITH IPRATROPIUM Levetiracetam (Keppra Oral Solution) 500 Mg/5 Ml Caroline, 500 MG GT BID, (Reported) Nystatin (Nystatin Powder) 100,000 Unit/Gm Pow, 1 DOSE TOP BID, (Reported) APPLIED TO GROIN AREA Polyethylene Glycol (Miralax) 1 Pow Pow, 17 GM GT QPM, (Reported) HOLD FOR LOOSE STOOLS Ranitidine HCl (Ranitidine HCl) 150 Mg Tab, 1 TAB GT BID, (Reported) Scopolamine (Transderm-Scop) 1.5 Mg Dis, 1.5 MG TD Q3RD, (Reported) Wheat Dextrin (Benefiber) 1 Pow Pow, 1 POW GT TID, (Reported) AM, NOON, HS: MIXED WITH 60CC WATER Scheduled PRN (Zaditor) 0.025 % Thom, 1 DROP OU BID PRN for ALLERGIES, (Reported) Bisacodyl (Dulcolax) 10 Mg Sup, 10 MG SD ASDIRECTED PRN for CONSTIPATION, (Reported) USE AT QHS ON DAY 5 WITH NO BM Docusate Sodium (Docusate Sodium) 50 Mg/5 Ml Liq, 150 MG GT ASDIRECTED PRN for CONSTIPATION, (Reported) BID IF NO BM IN MORE THAN 2 DAYS. REPEAT IF NO BM MORE THAN 3 DAYS Guaifenesin (Mucinex Chest Congestion) 100 Mg/5 Ml Liq, 10 ML GT Q4H PRN for CONGESTION, (Reported) Ipratropium [place] (Ipratropium [place]) 0.5 Mg/2.5 Ml Soln, 0.5 MG INH Q2H PRN for SHORTNESS OF BREATH, (Reported) Levalbuterol Hydrochloride (Levalbuterol HCl) 1.25 Mg/3 Ml Neb, 1.25 MG INH Q2H PRN for SHORTNESS OF BREATH, (Reported) Allergies Coded Allergies: Clarithromycin (Verified Allergy, Intermediate, INCREASED TEGRETOL LEVEL, RASH, 06/29/18) Clavulanic Acid (Verified Allergy, Intermediate, RASH, 06/29/18) Corticotropin (Verified Allergy, Intermediate, RASH, 06/29/18) Lamotrigine (Verified Allergy, Intermediate, BLISTERS ON SKIN, RASH, 06/29/18) Penicillins (Verified Allergy, Intermediate, RASH, 06/29/18) Amoxicillin (Verified Allergy, Unknown, 06/29/18) Grapefruit (Verified Allergy, Unknown, 06/29/18) Haemophilus Influenza Vaccines (Verified Allergy, Unknown, 06/29/18) Tetanus Toxoid (Verified Allergy, Unknown, 06/29/18) GME ATTESTATION GME ATTESTATION My faculty preceptor for this patient encounter was physically present during the encounter and was fully available. All aspects of the patient interview, examination, medical decision making process, and medical care plan development were reviewed and approved by the faculty preceptor. The faculty preceptor is aware and concurs with the plan as stated in the body of this note and will attest to such by his/her cosignature. TIKA ARIAS DO Aug 27, 2018 20:00
== END 2018-08-27 15:44 | disposition other institution (70) | DRG 180 ==
LOC: M ED 06:17 → M ED INP 11:35 → M ICU 13:25 → M PCU 08-20 21:14
PROVIDERS: ADMIT Family Medicine; ATTEND Family Medicine
PROC: 0W9D3ZZ Drainage of Pericardial Cavity, Percutaneous Approach (ICD-10-PCS; principal; 2018-08-17)
PROC: 0W9B30Z Drainage of Left Pleural Cavity with Drainage Device, Percutaneous Approach (ICD-10-PCS; 2018-08-17)
PROC: 02BN0ZX Excision of Pericardium, Open Approach, Diagnostic (ICD-10-PCS; 2018-08-18)
DX: I31.1 Chronic constrictive pericarditis (principal); J98.51 Mediastinitis; J90 Pleural effusion, not elsewhere classified; F73 Profound intellectual disabilities; I42.9 Cardiomyopathy, unspecified; I31.3 Pericardial effusion (noninflammatory); G80.0 Spastic quadriplegic cerebral palsy; Z93.1 Gastrostomy status; G40.909 Epilepsy, unspecified, not intractable, without status epilepticus; R68.0 Hypothermia, not associated with low environmental temperature; Z51.5 Encounter for palliative care; Z66 Do not resuscitate; Z79.899 Other long term (current) drug therapy; Z88.8 Allergy status to other drugs, medicaments and biological substances; Z88.0 Allergy status to penicillin; Z88.7 Allergy status to serum and vaccine; Z91.018 Allergy to other foods; E87.6 Hypokalemia

== ENCOUNTER 2019-02-06 09:17 | Inpatient (IN) | payer MEDICAID ==
[~2019-02-06 09:17] MED LIST changes: -/CARB4TA; -/IPRA3SP; -/IPRA3SP INH; -/IPRAINH INH; -/SCOPPA; -/SCOPPA TD; -ACET50TA GT; +AMOX400S53 GT; +ATRO0.063 INH; +ATRO1SOL13; -AUGM40SS GT; -BACT20SS GT; -CARB GT; +CARB1SUS GT; +CEFD250S16 PO; -CEFD250SUS PO; +CLOT1CRE2 TOP; +CLOT1CRE27 TOP; -CLOT1CRE6 TOP; -CLOTR1CR TOP; -DOCU10ELUD GT; +KONS100P4 PEG; +LACT15SO PEG; -LACT20EL PEG; +LEVE15SO GT; -LEVE500UDC GT; +MAPA500T17 GT; -METAPKT PEG; -MIRA255PW GT; +POLY1POW4 GT; +PRED-351 PO; -PRED10TA PO; +SCOP1PAT; +SCOP1PAT TD; +SCOP1PAT2 TD; +SCOP1PAT2 TOP; +SULF20OR GT; +TEGR1TAB2; -TRAN1.5D2 TOP
--- NOTE | 2019-02-06 10:06 | REP ---
Clinical: Cough and dyspnea. Comparison: 08/23/2018. Findings: Cardiomegaly and findings to suggest pulmonary vascular congestion/CHF suspected. Differential diagnosis includes multifocal atelectasis/pneumonia. No obvious effusion. No pneumothorax. Skeletal structures stable. Impression: Differential diagnosis includes pulmonary vascular congestion versus multifocal atelectasis/pneumonia Electronically Signed by Mac Montes MD 02/06/2019 09:58 A
[2019-02-06] MEDS ORDERED: BENE1POW5 GT (10:39)
[2019-02-06] MEDS ORDERED: JEVILIQ7 GT (10:39)
[2019-02-06] MEDS ORDERED: PROMLIQ9 GT (10:49)
[2019-02-06] MEDS ORDERED: CETI10TA8 GT (10:49)
[2019-02-06] MEDS ORDERED: DOXY100T2 GT (10:49)
[2019-02-06 10:50] LABS: BASO % 0.2 % (0.0-1.0); EOS # 0.2 10^3/uL (0.0-0.50); EOS % 1.5 % (0.0-3.0); HEMATOCRIT 46.5 % (36.0-47.0); HEMOGLOBIN 15.4 g/dl (12.0-15.5); LYMPH # 2.6 10^3/uL (1.5-4.5); LYMPH % 16.4 % (24.0-44.0); MEAN CORPUSCULAR HEMOGLOBIN 31.8 pg (27.0-33.0); MEAN CORPUSCULAR HGB CONC 33.1 g/dl (32.0-36.5); MEAN CORPUSCULAR VOLUME 96.1 fl (80.0-96.0); MONO # 1.4 10^3/uL (0.0-0.8); MONO % 8.6 % (0.0-5.0); NEUTROPHILS # 11.5 10^3/uL (1.8-7.7); NEUTROPHILS % 72.9 % (36.0-66.0); PLATELET COUNT, AUTOMATED 268 10^3/uL (150-450); RED BLOOD COUNT 4.84 10^6/uL (4.00-5.40); WHITE BLOOD COUNT 15.8 10^3/uL (4.0-10.0)
--- NOTE | 2019-02-06 11:06 | REP ---
Clinical: Dyspnea. Technique: Axial noncontrast images from the thoracic inlet to the upper abdomen with coronal and sagittal re-formations. Findings: Cardiomegaly with pulmonary vascular congestion/CHF including cephalization, increased interstitial markings, perihilar and right lower lobe atelectasis with small right pleural effusion. Tracheobronchial tree is patent. No pneumothorax. No adenopathy. Musculoskeletal structures demonstrate scoliosis without focal osseous abnormality. Impression: Cardiomegaly with findings most suggestive of pulmonary vascular congestion/early CHF. Electronically Signed by Mac Montes MD 02/06/2019 10:58 A
--- NOTE | 2019-02-06 11:19 | ECGEPIP ---
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
[2019-02-06 11:31] LABS: ALBUMIN 3.2 GM/DL (3.2-5.2); ALT/SGPT 123 U/L (12-78); BILIRUBIN,DIRECT 0.3 MG/DL (0.0-0.2); BILIRUBIN,TOTAL 0.8 MG/DL (0.2-1.0); BLOOD UREA NITROGEN 40 MG/DL (7-18); CALCIUM LEVEL 9.2 MG/DL (8.5-10.1); CARBON DIOXIDE LEVEL 28 MEQ/L (21-32); CHLORIDE LEVEL 106 MEQ/L (98-107); CK-MB VALUE MASS < 1.0 NG/ML (<3.6); CPK CREATINE PHOSPHOKINASE 24 U/L (26-192); CREATININE FOR GFR 0.65 MG/DL (0.55-1.30); GLOMERULAR FILTRATION RATE > 60.0 (>60); GLUCOSE, FASTING 92 MG/DL (70-100); MB/CK RELATIVE INDEX 4.17 (< OR =4); NT-PRO BNP 187 PG/ML (<125); POTASSIUM SERUM 3.6 MEQ/L (3.5-5.1); SODIUM LEVEL 142 MEQ/L (136-145); TROPONIN I 0.04 NG/ML (< 0.10)
[2019-02-06] MEDS ORDERED: IPRATROPIUM 0.02% SOLN 0.5MG/2.5 ML NEB INH PRN (14:00)
[2019-02-06] MEDS ORDERED: LEVALBUTEROL 1.25 MG/0.5 ML CONCENTRATE NEB INH PRN (14:00)
[2019-02-06] MEDS ORDERED: BISACODYL 10 MG SUPP PR PRN (14:00)
[2019-02-06] MEDS ORDERED: PILL CUTTER 1 EACH XX PRN (15:00)
[2019-02-06] MEDS: CYPROHEPTADINE 4 MG TAB GT SCH ×2 (16:00→21:01)
[2019-02-06] MEDS: IPRATROPIUM 0.02% SOLN 0.5MG/2.5 ML NEB INH SCH ×2 (16:10→19:23)
[2019-02-06] MEDS: LEVALBUTEROL 1.25 MG/0.5 ML CONCENTRATE NEB INH SCH ×2 (16:10→19:23)
[2019-02-06 16:39] VITALS: BP 127/78
--- NOTE | 2019-02-06 18:52 | HPEPDOC ---
General Date of Admission Feb 06, 2019 at 14:55 Date of Service: Feb 06, 2019 Chief Complaint The patient is a 38-year-old female admitted with a reason for visit of Constrictive Pericarditis. 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 Pt was made DNR and discharged on hospice at that time. Apparently the patient outlived her hospice time and was discharged from the program. She was residing in [facility] where she has been treated for bronchitis this past week. She was sent to the ED today when she was noted to be tachycardic and tachypneic. She is unable to provide any history ROS UTO Home Medications Scheduled Benzoyl Peroxide (Benzoyl Peroxide) 10 % Liq, 1 DOSE TOP BID, (Reported) APPLY TO FACE AND EARS Cetirizine HCl (Cetirizine HCl) 10 Mg Tablet, 10 MG GT QHS, (Reported) Chlorhexidine Gluconate (Hibiclens) 4 % Liq, 1 DOSE TOP QHS, (Reported) WASH BEHIND EARS, AND ARMPITS DAILY Clindamycin Phosphate (Clindagel) 1 % Gel, 1 DOSE TOP BID, (Reported) TO FACE, UNDERARMS AND BEHIND EARS Clorazepate Dipotassium (Tranxene T-Tab) 7.5 Mg Tab, 7.5 MG GT BID, (Reported) Cyproheptadine HCl (Cyproheptadine HCl) 4 Mg Tab, 8 MG GT TID, (Reported) Doxycycline Hyclate (Doxycycline Hyclate) 100 Mg Tablet, 100 MG GT BID, (Reported) DUE TO STOP ON 02/09/19 Ipratropium [place] (Ipratropium [place]) 0.5 Mg/2.5 Ml Soln, 0.5 MG INH QID, (Reported) MAY MIX WITH LEVALBUTEROL Lacosamide (Vimpat) 10 Mg/Ml Caroline, 5 ML GT QAM, (Reported) Lacosamide (Vimpat) 10 Mg/Ml Caroline, 7.5 ML GT QHS, (Reported) Lactose-Reduced Food/Fiber (Jevity 1.2 Cedric Liquid) 237 Ml Liquid, 2 CAN GT QPM, (Reported) Levalbuterol HCl (Levalbuterol HCl) 1.25 Mg/3 Ml Neb, 1.25 MG INH QID, (Reported) MAY MIX WITH IPRATROPIUM Levetiracetam (Levetiracetam) 500 Mg/5 Ml Caroline, 500 MG GT BID, (Reported) Nystatin (Nystatin Powder) 100,000 Unit/Gm Pow, 1 DOSE TOP BID, (Reported) APPLIED TO GROIN AREA Polyethylene Glycol 3350 (Miralax) 1 Pow Pow, 17 GM GT QPM, (Reported) HOLD FOR LOOSE STOOLS Protein Supplement (Promod) 946 Ml Liquid, 60 ML GT QHS, (Reported) MIX WITH 30 CC OF WATER Ranitidine HCl (Ranitidine HCl) 150 Mg Tab, 1 TAB GT BID, (Reported) Scopolamine (Transderm-Scop) 1.5 Mg Dis, 1.5 MG TD Q3RD, (Reported) Wheat Dextrin (Benefiber) 1 Each Powd.pack, 1 POW GT TID, (Reported) AM, NOON, HS: MIX WITH 60CC OF WATER Scheduled PRN Bisacodyl (Dulcolax) 10 Mg Sup, 10 MG MA ASDIRECTED PRN for CONSTIPATION, (Reported) USE AT QHS ON DAY 5 WITH NO BM Docusate Sodium (Docusate Sodium) 50 Mg/5 Ml Liq, 150 MG GT ASDIRECTED PRN for CONSTIPATION, (Reported) BID IF NO BM IN MORE THAN 2 DAYS. REPEAT IF NO BM MORE THAN 3 DAYS Ipratropium [place] (Ipratropium [place]) 0.5 Mg/2.5 Ml Soln, 0.5 MG INH Q2H PRN for SHORTNESS OF BREATH, (Reported) Levalbuterol HCl (Levalbuterol HCl) 1.25 Mg/3 Ml Neb, 1.25 MG INH Q2H PRN for SHORTNESS OF BREATH, (Reported) Allergies Coded Allergies: Penicillins (Verified Allergy, Intermediate, rash, 02/06/19) clarithromycin (Verified Allergy, Intermediate, rash , 02/06/19) increase tregrtol level clavulanic acid (Verified Allergy, Intermediate, rash, 02/06/19) corticotropin (Verified Allergy, Intermediate, rash, 02/06/19) lamotrigine (Verified Allergy, Intermediate, blisters/rash, 02/06/19) Influenza Virus Vaccines (Verified Allergy, Unknown, 02/06/19) amoxicillin (Verified Allergy, Unknown, 02/06/19) grapefruit (Verified Allergy, Unknown, 02/06/19) tetanus and diphtheria toxoids (Verified Allergy, Unknown, 02/06/19) Social History * Smoker: Denies A-FIB/CHADSVASC A-FIB History Current/History of A-Fib/PAF?: No Current PO Anticoag Therapy: No Age/Risk Factor Scoring CHADSVASC: CHADSVASC Response (Comments) Value Age Risk Factor Age < 65 years old 0 Gender Risk Factor Female 1 Hx of CHF Yes 1 Hx of HTN No 0 Hx of Stroke/TIA/or VTE No 0 Hx of Diabetes No 0 Hx of Vascular Disease No 0 Total 2 Treatment Treatment ordered: NONE Reason Anticoagulant not given: Not indicated/[id number] Physical Examination General Exam: Positive: Moderate Distress, Other (obese); Negative: Cooperative ENT Exam: Positive: Atraumatic; Negative: Mucous membr. moist/pink Chest Exam: Positive: Diminished Heart Exam: Positive: Rate Normal, Regular Rhythm; Negative: Murmurs Telemetry: Positive: No significant arrhythmia Abdomen Exam: Positive: Normal bowel sounds, Soft Extremity Exam: Negative: Edema Skin Exam: Positive: Nl turgor and temperature Neuro Exam: Negative: Normal Speech, Normal Tone Psych Exam: Negative: Mental status NL, Mood NL, Memory Intact, Oriented x 3 Other physical findings exam limited by uncooperative and agitated pt Vital Signs Vital Signs Date Time Temp Pulse Resp B/P (MAP) Pulse Ox O2 Delivery O2 Flow Rate FiO2 02/06/19 16:39 97.8 79 19 127/78 (94) 96 02/06/19 15:52 Room Air Laboratory Data Labs 24H Laboratory Tests 2 02/06/19 10:02: POC pH (Misc Panel) 7.444, POC Base Excess (Misc Panel) 2.0, POC Saturated Percent O2 (Misc) 95, POC pO2 (Misc Panel) 73.0L, POC pCO2 (Misc Panel) 38.0, POC HCO3 (Misc Panel) 26.0, POC Total CO2 (Misc Panel) 27.0 02/06/19 10:27: Urine Color YELLOW, Urine Appearance CLEAR, Urine pH 6.0, Urine Specific [place] 1.015, Urine Protein NEGATIVE, Urine Glucose (UA) NEGATIVE, Urine Ketones NEGATIVE, Urine Blood NEGATIVE, Urine Nitrite NEGATIVE, Urine Bilirubin NEGATIVE, Urine Urobilinogen 0.2, Urine Leukocyte Esterase NEGATIVE, Urine WBC (Auto) 1, Urine RBC (Auto) 1, Urine Hyaline Casts (Auto) 0, Urine Bacteria (Auto) NEGATIVE, Urine Squamous Epithelial Cells 0, Urine Sperm (Auto) 02/06/19 10:38: Immature Granulocyte % (Auto) 0.4, White Blood Count 15.8H, Red Blood Count 4.84, Hemoglobin 15.4, Hematocrit 46.5, Mean Corpuscular Volume 96.1H, Mean C orpuscular Hemoglobin 31.8, Mean Corpuscular Hemoglobin Concent 33.1, Red Cell Distribution Width 18.3H, Platelet Count 268, Neutrophils (%) (Auto) 72.9H, Lymphocytes (%) (Auto) 16.4L, Monocytes (%) (Auto) 8.6H, Eosinophils (%) (Auto) 1.5, Basophils (%) (Auto) 0.2, Neutrophils # (Auto) 11.5H, Lymphocytes # (Auto) 2.6, Monocytes # (Auto) 1.4H, Eosinophils # (Auto) 0.2, Basophils # (Auto) 0.0, Nucleated Red Blood Cells % (auto) 0.0, Anion Gap 8, Glomerular Filtration Rate > 60.0, Lactic Acid Level 1.0, Calcium Level 9.2, Aspartate Amino Transf (AST/SGOT) 95H, Alanine Aminotransferase (ALT/SGPT) 123H, Alkaline Phosphatase 192H, Total Bilirubin 0.8, Direct Bilirubin 0.3H, Total Creatine Kinase 24L, Creatine Kinase MB < 1.0, Creatine Kinase MB Relative Index 4.17H, Troponin I 0.04, SX-Ixa-R-Type Natriuretic Peptide 187H, Total Protein 8.0, Albumin 3.2, Albumin/Globulin Ratio 0.67L, Thyroid Stimulating Hormone (TSH) 1.410 CBC/BMP Laboratory Tests 02/06/19 10:38 Red Blood Count 4.84, Mean Corpuscular Volume 96.1 H, Mean Corpuscular Hemoglobin 31.8, Mean Corpuscular Hemoglobin Concent 33.1, Red Cell Distribution Width 18.3 H, Neutrophils (%) (Auto) 72.9 H, Lymphocytes (%) (Auto) 16.4 L, Monocytes (%) (Auto) 8.6 H, Eosinophils (%) (Auto) 1.5, Basophils (%) (Auto) 0.2, Neutrophils # (Auto) 11.5 H, Lymphocytes # (Auto) 2.6, Monocytes # (Auto) 1.4 H, Eosinophils # (Auto) 0.2, Basophils # (Auto) 0.0 Microbiology Microbiology 02/06/19 Blood Culture, Received Pending 02/06/19 Blood Culture, Received Pending 02/06/19 Respiratory Virus Panel (PCR) (SUSAN) - Final, Complete Assessment/Plan 38f with severe MR tachycardia/tachypnea has not been tachycardic or febrile here, although reported from facility Chest imaging suggestive more of chf than infection does not appear volume overloaded although exam is difficult may be progression of constrictive pericarditis discussed with cardiology who felt pt would not benefit from repeat echo would not diurese as pt appears more on the dry side would readdress goals of care with Mother pt is DNR MOLST states ok for trial of intubation, antibiotics, noninvasive treatments under certain circumstances to be determined by her mother Seizures continue keppra and vimpat feeding pt takes lactose free jevity outpatient replaced with osmolyte Plan / VTE VTE Prophylaxis Ordered?: Yes SOLANGE JONES MD Feb 06, 2019 18:52
[2019-02-06] MEDS: MIRALAX *UNIT DOSE* 17GM PACKET GT SCH (21:01)
[2019-02-06] MEDS: levETIRAcetam ORAL SOLUTION 500 MG/5 ML UDC GT SCH (21:01)
[2019-02-06] MEDS: HEPARIN SOD (PORCINE) 5000 UNITS/ML VIAL SC SCH (21:02)
[2019-02-06] MEDS: CETIRIZINE (ZyrTEC) 10 MG TAB GT SCH (21:02)
[2019-02-06] MEDS: CLORAZEPATE 3.75 MG TAB GT SCH (21:02)
[2019-02-06] MEDS: FAMOTIDINE 20 MG TAB GT SCH (21:02)
[2019-02-06] MEDS: DOXYCYCLINE HYCLATE 100 MG TAB GT SCH (21:02)
[2019-02-06] MEDS: LACOSAMIDE 50 MG TAB (VIMPAT) GT SCH (21:12)
[2019-02-06 21:36] VITALS: BP 122/76
[2019-02-07 05:38] LABS: HEMOGLOBIN 14.5 g/dl (12.0-15.5); MEAN CORPUSCULAR HEMOGLOBIN 31.8 pg (27.0-33.0); MEAN CORPUSCULAR VOLUME 96.5 fl (80.0-96.0); PLATELET COUNT, AUTOMATED 239 10^3/uL (150-450); RED BLOOD COUNT 4.56 10^6/uL (4.00-5.40); WHITE BLOOD COUNT 11.5 10^3/uL (4.0-10.0)
[2019-02-07 06:02] LABS: BLOOD UREA NITROGEN 29 MG/DL (7-18); CALCIUM LEVEL 9.3 MG/DL (8.5-10.1); CARBON DIOXIDE LEVEL 29 MEQ/L (21-32); CHLORIDE LEVEL 105 MEQ/L (98-107); CREATININE FOR GFR 0.51 MG/DL (0.55-1.30); GLOMERULAR FILTRATION RATE > 60.0 (>60); GLUCOSE, FASTING 132 MG/DL (70-100); POTASSIUM SERUM 3.9 MEQ/L (3.5-5.1); SODIUM LEVEL 138 MEQ/L (136-145)
[2019-02-07 06:22] VITALS: BP 117/80
[2019-02-07] MEDS: LEVALBUTEROL 1.25 MG/0.5 ML CONCENTRATE NEB INH SCH ×4 (07:14→20:22)
[2019-02-07] MEDS: IPRATROPIUM 0.02% SOLN 0.5MG/2.5 ML NEB INH SCH ×4 (07:14→20:22)
[2019-02-07] MEDS: DOXYCYCLINE HYCLATE 100 MG TAB GT SCH ×2 (10:04→22:05)
[2019-02-07] MEDS: levETIRAcetam ORAL SOLUTION 500 MG/5 ML UDC GT SCH ×2 (10:04→22:04)
[2019-02-07] MEDS: CLORAZEPATE 3.75 MG TAB GT SCH ×2 (10:04→22:05)
[2019-02-07] MEDS: FAMOTIDINE 20 MG TAB GT SCH ×2 (10:04→22:05)
[2019-02-07] MEDS: LACOSAMIDE 50 MG TAB (VIMPAT) GT SCH ×2 (10:04→22:06)
[2019-02-07] MEDS: CYPROHEPTADINE 4 MG TAB GT SCH ×3 (10:05→22:09)
[2019-02-07] MEDS: HEPARIN SOD (PORCINE) 5000 UNITS/ML VIAL SC SCH ×2 (10:05→22:04)
--- NOTE | 2019-02-07 10:34 | IPNPDOC ---
Subjective Date Seen The patient was seen on 02/07/19. Subjective Chief Complaint/HPI tachypnea/tachycardia Events since last encounter Admitted for elevated HR and tachypnea. Had graduated from Hospice care. Nursing notes clogged J port in G/J tube General: Reports: ROS Unobtainable Constitutional: Denies: Fever Gastrointestinal: Reports: Constipation (unknown last BM) Objective Physical Examination General Exam: Positive: No Acute Distress, Other (obese); Negative: Cooperative ENT Exam: Positive: Atraumatic; Negative: Mucous membr. moist/pink Chest Exam: Positive: Clear to auscultation Heart Exam: Positive: Rate Normal, Regular Rhythm; Negative: Murmurs Abdomen Exam: Positive: Normal bowel sounds, Soft (mildly distended) Extremity Exam: Positive: Other (+ PP bilateral); Negative: Edema Skin Exam: Positive: Nl turgor and temperature Neuro Exam: Negative: Normal Speech, Normal Tone Psych Exam: Positive: Other (non verbal, tracks with eyes, smiles reponsively, behavior at baseline) Assessment /Plan Problems (1) Gastrostomy tube dysfunction Status: Acute Problem Text: Consult IR for tube change (2) Constrictive pericarditis Problem Text: Patient survived past 6 month hospice time frame. Will consult palliative care. Will monitor I/O. Appears well compensated. (3) Cerebral palsy Onset Date: 01/30/2014 Status: Chronic (4) Seizure disorder Onset Date: 01/30/2014 Status: Chronic (5) On enteral nutrition Status: Chronic Plan/VTE VTE Prophylaxis Ordered?: Yes VS, I&O, 24H, Fishbone Vital Signs/I&O Vital Signs Date Time Temp Pulse Resp B/P (MAP) Pulse Ox O2 Delivery O2 Flow Rate FiO2 02/07/19 06:22 95.9 73 20 117/80 (92) 96 02/06/19 15:52 Room Air I&O- Last 24 Hours up to 6 AM 02/07/19 06:00 Intake Total 0 ml Output Total 0 ml Balance 0 ml Laboratory Data 24H LABS Laboratory Tests 2 02/06/19 10:38: Immature Granulocyte % (Auto) 0.4, White Blood Count 15.8H, Red Blood Count 4.84, Hemoglobin 15.4, Hematocrit 46.5, Mean Corpuscular Volume 96.1H, Mean Corpuscular Hemoglobin 31.8, Mean Corpuscular Hemoglobin Concent 33.1, Red Cell Distribution Width 18.3H, Platelet Count 268, Neutrophils (%) (Auto) 72.9H, Lymphocytes (%) (Auto) 16.4L, Monocytes (%) (Auto) 8.6H, Eosinophils (%) (Auto) 1.5, Basophils (%) (Auto) 0.2, Neutrophils # (Auto) 11.5H, Lymphocytes # (Auto) 2.6, Monocytes # (Auto) 1.4H, Eosinophils # (Auto) 0.2, Basophils # (Auto) 0.0, Nucleated Red Blood Cells % (auto) 0.0, Anion Gap 8, Glomerular Filtration Rate > 60.0, Lactic Acid Level 1.0, Calcium Level 9.2, Aspartate Amino Transf (AST/SGOT) 95H, Alanine Aminotransferase (ALT/SGPT) 123H, Alkaline Phosphatase 192H, Total Bilirubin 0.8, Direct Bilirubin 0.3H, Total Creatine Kinase 24L, Creatine Kinase MB < 1.0, Creatine Kinase MB Relative Index 4.17H, Troponin I 0.04, EF-Men-G-Type Natriuretic Peptide 187H, Total Protein 8.0, Albumin 3.2, Albumin/Globulin Ratio 0.67L, Thyroid Stimulating Hormone (TSH) 1.410 02/07/19 05:26: Nucleated Red Blood Cells % (auto) 0.0, Anion Gap 4L, Glomerular Filtration Rate > 60.0, Calcium Level 9.3, Blood Urea Nitrogen 29H, Creatinine 0.51L, Sodium Level 138, Potassium Level 3.9, Chloride Level 105, Carbon Dioxide Level 29 CBC/BMP Laboratory Tests 02/06/19 10:38 Red Blood Count 4.84, Mean Corpuscular Volume 96.1 H, Mean Corpuscular Hemoglobin 31.8, Mean Corpuscular Hemoglobin Concent 33.1, Red Cell Distribution Width 18.3 H, Neutrophils (%) (Auto) 72.9 H, Lymphocytes (%) (Auto) 16.4 L, Monocytes (%) (Auto) 8.6 H, Eosinophils (%) (Auto) 1.5, Basophils (%) (Auto) 0.2, Neutrophils # (Auto) 11.5 H, Lymphocytes # (Auto) 2.6, Monocytes # (Auto) 1.4 H, Eosinophils # (Auto) 0.2, Basophils # (Auto) 0.0 02/07/19 05:26 Red Blood Count 4.56, Mean Corpuscular Volume 96.5 H, Mean Corpuscular Hemoglobin 31.8, Mean Corpuscular Hemoglobin Concent 33.0, Red Cell Distribution Width 17.8 H, Calcium Level 9.3 Microbiology Microbiology 02/06/19 Blood Culture - Preliminary, Resulted No growth after 24 hours . All specim... 02/06/19 Blood Culture - Preliminary, Resulted No growth after 24 hours . All specim... 02/06/19 Respiratory Virus Panel (PCR) (SUSAN) - Final, Complete Yuki Flores ENGINE WIPER Feb 07, 2019 10:34
[2019-02-07] MEDS ORDERED: ISOVUE-300 61% 50ML VIAL (Q9967) As Ordered ONE (12:27)
--- NOTE | 2019-02-07 13:22 | POST-OPPD ---
Postoperative Procedure Note Date Of Procedure: Feb 07, 2019 Time Of Procedure: 13:20 PREOPERATIVE DIAGNOSIS: GJ dependent. anoxic brain injury POSTOPERATIVE DIAGNOSIS: GJ dependent. anoxic brain injury FINDINGS: GJ in place PROCEDURE: J port flossed and flushed. Now working well. G port patent SURGEON: kaylin ANESTHESIA: none ESTIMATED BLOOD LOSS: < 5 ml REPLACED: COMPLICATIONS: none POSTOPERATIVE CONDITION: stable NUPUR MARTINEZ MD Feb 07, 2019 13:22
--- NOTE | 2019-02-07 17:03 | REP ---
IR Gastrojejunostomy catheter evaluation. IR Gastrojejunostomy catheter evaluation with fluoroscopy guidance. Clinical information: J port not working. Anoxic brain injury. GJ dependent. Physician: Dr. Weeks. Procedure: The time-out was performed with verification of the patient's name, MRN, site of procedure and type of procedure to be performed. The patient was positioned in the supine position on the angiographic table. The site was prepped and draped in the usual sterile fashion. Moderate sedation was not required. The physician spent 30 minutes of continuous face to face time with the patient. A district scout executive radiograph reveals a gastrojejunostomy catheter in place. The jejunal port of the catheter was injected with contrast and initially appeared clogged but with greater pressure unclogged under fluoroscopic guidance. A Glidewire was inserted through the J port under fluoroscopy guidance to floss the jejunal catheter in it's entirety. Repeat contrast injection demonstrated widely patent J tube and appropriate position with the tip in the jejunum. The gastric port was injected with contrast and demonstrated no obstruction. The patient tolerated the procedure well and was returned to the inpatient unit in stable condition. EBL: Less than 5 ml. Complications: None. Conclusion: Successful unclogging of existing GJ catheter. Catheter is in good condition and does not otherwise required exchange at this time. Please do not use the J port for any medication. Medication should be well crushed and flushed only through the gastric port. Please ensure vigorous flushing of the Jejunal port after feeds. Should there be any further issues with the GJ in the future, please refer back to me. Thank you this referral. Electronically Signed by Magdalene Weeks MD 02/07/2019 05:02 P
[2019-02-07] MEDS ORDERED: SCOPOLAMINE 1MG TRANSDERMAL PATCH TOP SCH (21:00)
[2019-02-07 22:00] VITALS: BP 117/81
[2019-02-07] MEDS: CETIRIZINE (ZyrTEC) 10 MG TAB GT SCH (22:05)
[2019-02-07] MEDS: MIRALAX *UNIT DOSE* 17GM PACKET GT SCH (22:05)
[2019-02-08 06:00] VITALS: BP 98/63
[2019-02-08] MEDS: LEVALBUTEROL 1.25 MG/0.5 ML CONCENTRATE NEB INH SCH ×2 (07:24→11:08)
[2019-02-08] MEDS: IPRATROPIUM 0.02% SOLN 0.5MG/2.5 ML NEB INH SCH ×2 (07:24→11:09)
[2019-02-08] MEDS: levETIRAcetam ORAL SOLUTION 500 MG/5 ML UDC GT SCH (10:08)
[2019-02-08] MEDS: LACOSAMIDE 50 MG TAB (VIMPAT) GT SCH (10:08)
[2019-02-08] MEDS: FAMOTIDINE 20 MG TAB GT SCH (10:08)
[2019-02-08] MEDS: CLORAZEPATE 3.75 MG TAB GT SCH (10:08)
[2019-02-08] MEDS: DOXYCYCLINE HYCLATE 100 MG TAB GT SCH (10:08)
[2019-02-08] MEDS: HEPARIN SOD (PORCINE) 5000 UNITS/ML VIAL SC SCH (10:08)
[2019-02-08] MEDS: CYPROHEPTADINE 4 MG TAB GT SCH (10:09)
--- NOTE | 2019-02-08 20:01 | DSES ---
DATE OF ADMISSION: 02/06/2019 DATE OF DISCHARGE: 02/08/2019 PRIMARY CARE PROVIDER: Efrain Lara MD and Taty Magallanes DO in the [facility]. ATTENDING PHYSICIAN: Luis Eduardo Gomes MD HISTORY OF PRESENT ILLNESS: 38-year-old female resident of [facility] ([facility]) with a past medical history of anoxic encephalopathy, quadriplegia, seizure disorder, severe mental retardation (MR), and fibrinous sclerosing pericarditis who was previously on hospice care presented to the emergency department (ED) for tachycardia and tachypnea. She had been treated previously for bronchitis a week prior to her presentation and patient has outlived her hospice time and was discharged from the program. The patient remained with normal vital signs. She was afebrile and was non-oxygen needing throughout her hospitalization. She was noted to have an impaired gastrojejunostomy (G-J) tube which was improved with the jejunal (J) port flossed and flushed by Dr. Magdalene Weeks. She is tolerating tube feeds as well as routine medications at this point and is at her baseline. On physical exam today, blood pressure 98/63, oxygen saturation 94% on room air, heart rate 76, temperature 97.5. GENERAL: Patient is in no acute distress. She does track with eyes. Smiles responsively. HEENT: Neck is supple without lymphadenopathy. CARDIOVASCULAR: Heart rate and rhythm are regular. PULMONARY: Lungs are clear. ABDOMEN: Soft and nontender. G-J tube port is clean, dry, and intact. BILATERAL LOWER EXTREMITIES: Without any edema and she has positive pedal pulses. ASSESSMENT: 1. Tachypnea with tachycardia, resolved. 2. Seizure disorder. 3. Anoxic encephalopathy. 4. Quadriplegia. 5. Fibrinous sclerosing pericarditis. PLAN: Patient will be discharged to [facility] ([facility]) house. Diet is to return to her tube feedings as per previous. She received Jevity 1.2 paulie two cans via gastrostomy (G) tube every evening. MEDICATION LIST: Is as follows: - benzoyl peroxide topically twice a day - Dulcolax 10 mg suppository daily as needed for constipation - cetirizine 10 mg via G-tube nightly - Hibiclens one dose topically nightly - clindamycin phosphate one dose topically twice a day - Tranxene 7.5 mg via G-tube twice a day - cyproheptadine 8 mg via G-tube three times a day - Colace 150 mg via G-tube daily as needed for constipation - doxycycline hyclate 100 mg via G-tube twice a day - ipratropium bromide 0.5 mg via inhalation four times a day and every 2 hours as needed for shortness of breath - Vimpat 5 mL via G-tube every morning and 7.5 mL via G-tube nightly - levalbuterol 1.25 mg/3 mL four times a day and every 2 hours as needed for shortness of breath - levetiracetam 500 mg via G-tube twice a day - nystatin powder topically twice a day - MiraLAX 17 grams via G-tube every evening - ProMod protein supplement 60 mL via G-tube nightly - ranitidine 150 mg via G-tube twice a day - scopolamine patch 1.5 mg transdermal every three days - Benefiber one packet three times a day via G-tube Patient will followup with primary care provider (PCP) within the next 5-7 days. Activity is to return to prior. She is on bed rest. [facility] ([facility]) staff is agreeable to plan. Patient is discharged in stable and satisfactory condition.
== END 2019-02-08 12:00 | disposition home or self-care (01) | DRG 207 ==
LOC: M ED 09:17 → EDBD 09:17 → M ED INP 14:55 → M MS5PR 16:30
PROVIDERS: ADMIT Hospitalist; ATTEND Family Medicine
PROC: 0DH63UZ Insertion of Feeding Device into Stomach, Percutaneous Approach (ICD-10-PCS; principal; 2019-02-07 12:00)
DX: I31.0 Chronic adhesive pericarditis (principal); G93.1 Anoxic brain damage, not elsewhere classified; G82.50 Quadriplegia, unspecified; F72 Severe intellectual disabilities; K94.23 Gastrostomy malfunction; G40.909 Epilepsy, unspecified, not intractable, without status epilepticus; Z79.899 Other long term (current) drug therapy; Z88.0 Allergy status to penicillin; Z88.8 Allergy status to other drugs, medicaments and biological substances; Z88.7 Allergy status to serum and vaccine; Z91.018 Allergy to other foods; Z66 Do not resuscitate

== ENCOUNTER 2019-02-27 10:50 | Emergency (ER) | payer MEDICAID ==
[~2019-02-27 10:50] MED LIST changes: +BENE1POW5 GT; +CETI10TA8 GT; +DOXY100T2 GT; +JEVILIQ7 GT
[2019-02-27 11:44] LABS: VENOUS BASE EXCESS 3.5 (-2.0-2.0); VENOUS HCO3 28.2 MEQ/L (23.0-27.0); VENOUS O2 SATURATION 97.8 % (60.0-80.0); VENOUS PARTIAL PRESSURE CO2 42.7 mmHg (38.0-50.0); VENOUS PARTIAL PRESSURE O2 86.7 mmHg (30.0-50.0); VENOUS PH 7.437 UNITS (7.330-7.430); VENOUS STANDARD HCO3 27.6 MEQ/L; VENOUS TOTAL CO2 29.5 MEQ/L (24.0-28.0)
[2019-02-27 11:57] LABS: BASO % 0.3 % (0.0-1.0); EOS # 0.2 10^3/uL (0.0-0.50); EOS % 3.9 % (0.0-3.0); HEMATOCRIT 43.4 % (36.0-47.0); HEMOGLOBIN 14.3 g/dl (12.0-15.5); LYMPH # 1.2 10^3/uL (1.5-4.5); LYMPH % 18.9 % (24.0-44.0); MEAN CORPUSCULAR HEMOGLOBIN 32.6 pg (27.0-33.0); MEAN CORPUSCULAR HGB CONC 32.9 g/dl (32.0-36.5); MEAN CORPUSCULAR VOLUME 99.1 fl (80.0-96.0); MONO # 0.6 10^3/uL (0.0-0.8); MONO % 9.9 % (0.0-5.0); NEUTROPHILS # 4.1 10^3/uL (1.8-7.7); NEUTROPHILS % 66.8 % (36.0-66.0); PLATELET COUNT, AUTOMATED 236 10^3/uL (150-450); RED BLOOD COUNT 4.38 10^6/uL (4.00-5.40); WHITE BLOOD COUNT 6.2 10^3/uL (4.0-10.0)
[2019-02-27 12:29] LABS: ALBUMIN 3.3 GM/DL (3.2-5.2); ALT/SGPT 49 U/L (12-78); BILIRUBIN,DIRECT 0.2 MG/DL (0.0-0.2); BILIRUBIN,TOTAL 0.5 MG/DL (0.2-1.0); BLOOD UREA NITROGEN 23 MG/DL (7-18); CALCIUM LEVEL 8.9 MG/DL (8.5-10.1); CARBON DIOXIDE LEVEL 29 MEQ/L (21-32); CHLORIDE LEVEL 106 MEQ/L (98-107); CK-MB VALUE MASS 1.5 NG/ML (<3.6); CPK CREATINE PHOSPHOKINASE 53 U/L (26-192); CREATININE FOR GFR 0.48 MG/DL (0.55-1.30); GLOMERULAR FILTRATION RATE > 60.0 (>60); GLUCOSE, FASTING 98 MG/DL (70-100); MB/CK RELATIVE INDEX 2.83 (< OR =4); NT-PRO BNP 60 PG/ML (<125); SODIUM LEVEL 141 MEQ/L (136-145); TOTAL PROTEIN 7.2 GM/DL (6.4-8.2); TROPONIN I < 0.02 NG/ML (< 0.10)
[2019-02-27 14:05] VITALS: BP 108/74
--- NOTE | 2019-02-28 20:03 | ECGEPIP ---
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
--- NOTE | 2019-03-01 08:16 | REP ---
CT of the chest without IV contrast: Varices are the portable chest performed earlier today and the chest CT dated 02/06/2019. . There is a small right pleural effusion. Right lung is otherwise clear. The left lung is clear. Cardiac size is enlarged. There is no pericardial effusion. There is a hiatal hernia containing peritoneal fat but no stomach or bowel. The thoracic aorta is unremarkable. The visualized upper abdominal contents demonstrate a J tube but otherwise unremarkable. Impression: Small right pleural effusion. Cardiomegaly. Fat-containing hiatal hernia. J tube. Electronically Signed by Aydin Stevenson MD 02/27/2019 12:55 P
--- NOTE | 2019-03-01 08:16 | REP ---
Portable chest, 11:56 a.m., single AP view with the patient upright: Comparison is 02/06/2019. Cardiac size is enlarged and obscures almost all of the left hemithorax. The right lung is clear. The [place], mediastinum, skeletal structures are unremarkable. There are dilated bowel loops in the visualized upper abdomen. Impression: Left lung is s obscured . Right lung clear. Cardiomegaly. Dilated bowel loops in the visualized upper abdomen. Electronically Signed by Aydin Stevenson MD 02/27/2019 12:54 P
== END 2019-02-27 14:16 | disposition home or self-care (01) ==
LOC: M ED 10:50 → EDBD 10:50 → M ED 14:16
DX: B34.8 Other viral infections of unspecified site (principal); F72 Severe intellectual disabilities; R56.9 Unspecified convulsions; G80.9 Cerebral palsy, unspecified; Z79.899 Other long term (current) drug therapy; Z88.0 Allergy status to penicillin; Z88.1 Allergy status to other antibiotic agents; Z88.7 Allergy status to serum and vaccine; Z88.8 Allergy status to other drugs, medicaments and biological substances

== ENCOUNTER 2019-03-10 01:07 | Emergency (ER) | payer MEDICAID ==
[2019-03-10] MEDS ORDERED: IPRATROPIUM 0.5MG/ALBUTEROL 2.5MG INH SOL UD 3ML (DUONEB)(J7620) NEB ONE (02:00)
[2019-03-10 02:44] LABS: BASO % 0.3 % (0.0-1.0); EOS # 0.3 10^3/uL (0.0-0.5); EOS % 3.9 % (0.0-3.0); HEMATOCRIT 42.8 % (36.0-47.0); HEMOGLOBIN 14.1 g/dl (12.0-15.5); LYMPH # 1.9 10^3/uL (1.5-5.0); LYMPH % 26.8 % (24.0-44.0); MEAN CORPUSCULAR HEMOGLOBIN 32.1 pg (27.0-33.0); MEAN CORPUSCULAR HGB CONC 32.9 g/dl (32.0-36.5); MEAN CORPUSCULAR VOLUME 97.5 fl (80.0-96.0); MONO % 13.9 % (0.0-5.0); NEUTROPHILS # 3.9 10^3/uL (1.5-8.5); PLATELET COUNT, AUTOMATED 245 10^3/uL (150-450); RED BLOOD COUNT 4.39 10^6/uL (4.00-5.40)
[2019-03-10 02:44] LABS: ABG BASE EXCESS 0.5 (-2.0-2.0); ABG HCO3 24.5 MEQ/L (22.0-26.0); ABG O2 SATURATION 97.2 % (95.0-99.0); ABG PARTIAL PRESSURE CO2 37.3 mmHg (35.0-45.0); ABG PARTIAL PRESSURE O2 89.2 mmHg (75.0-100.0); ABG TOTAL CO2 25.6 MEQ/L (22.0-29.0); ABG pH (ARTERIAL) 7.435 UNITS (7.350-7.450)
[2019-03-10 03:11] LABS: BLOOD UREA NITROGEN 28 MG/DL (7-18); CALCIUM LEVEL 8.7 MG/DL (8.5-10.1); CARBON DIOXIDE LEVEL 27 MEQ/L (21-32); CHLORIDE LEVEL 107 MEQ/L (98-107); CK-MB VALUE MASS 1.9 NG/ML (<3.6); CPK CREATINE PHOSPHOKINASE 52 U/L (26-192); GLOMERULAR FILTRATION RATE > 60.0 (>60); GLUCOSE, FASTING 90 MG/DL (70-100); MB/CK RELATIVE INDEX 3.65 (< OR =4); POTASSIUM SERUM 3.9 MEQ/L (3.5-5.1); SODIUM LEVEL 142 MEQ/L (136-145); TROPONIN I < 0.02 NG/ML (< 0.10)
[2019-03-10] MEDS ORDERED: ISOVUE-370 76% 100ML VIAL (Q9967) As Ordered ONE (03:25)
[2019-03-10 06:45] VITALS: BP 124/85
--- NOTE | 2019-03-10 07:59 | REP ---
Portable chest x-ray: Single view. History: Dyspnea and cough. Comparison study: February 27, 2019. Findings: Monitoring electrodes are seen. A distended loops of colon are seen in the upper abdomen. The lungs are hypoventilated as before. No acute infiltrate is appreciated. Cardiomediastinal silhouette is unchanged. There is an old ununited fracture of the right humerus. A feeding tube is noted in the upper abdomen. Impression: Colonic gaseous distension. Hypoventilation. No definite infiltrate. Electronically Signed by Tra Harding MD 03/10/2019 07:51 A
--- NOTE | 2019-03-10 08:46 | REP ---
Clinical: Shortness of breath. Technique: Axial noncontrast images from the thoracic inlet to the upper abdomen with coronal and sagittal re-formations. Comparison: 02/27/2019. Findings: A small right pleural effusion is again identified and essentially unchanged along with very subtle atelectasis and/or dependent pulmonary parenchymal changes. No focal consolidation. No pneumothorax. Tracheobronchial tree is patent. No obvious adenopathy. Mediastinum demonstrates relatively normal thoracic aorta, pulmonary vasculature and heart/pericardium. No pericardial effusion. Stable fat-containing hiatal hernia identified. Osseous structures demonstrate degenerative changes and old right humerus fracture along with possible old healed rib fractures. Impression: 1. Small right pleural effusion similar to prior examination. 2. Minimal bilateral dependent/atelectatic changes. No focal consolidation. Electronically Signed by Mac Montes MD 03/10/2019 08:38 A
--- NOTE | 2019-03-10 10:21 | ED PDOC ---
Post-Departure Follow-Up dr reaves faxed formal report of ct chest for fu Yeni Hua MD Mar 10, 2019 10:21
--- NOTE | 2019-03-11 06:56 | ECGEPIP ---
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
== END 2019-03-10 08:08 | disposition home or self-care (01) ==
LOC: M ED 01:07
DX: R06.00 Dyspnea, unspecified (principal); J90 Pleural effusion, not elsewhere classified; R14.0 Abdominal distension (gaseous); G93.49 Other encephalopathy; Z79.899 Other long term (current) drug therapy; Z88.7 Allergy status to serum and vaccine; Z88.0 Allergy status to penicillin; Z91.018 Allergy to other foods; Z88.8 Allergy status to other drugs, medicaments and biological substances

== ENCOUNTER → 2019-04-04 | Outpatient (CLI) | payer MEDICAID ==
[2019-04-07 10:07] LABS: LACOSAMIDE LEVEL 4.9 ug/mL (5.0-10.0); LEVETIRACETAM (KEPPRA) 33.6 ug/mL (10.0-40.0)
== END ==
LOC: M LAB 14:02
PROVIDERS: ATTEND Physician Assistant Medical
DX: G40.919 Epilepsy, unspecified, intractable, without status epilepticus (principal)

== ENCOUNTER → 2019-08-31 | Outpatient (CLI) | payer MEDICAID ==
[~2019-08-31] MED LIST changes: +ISOVUE-300 61% 50ML VIAL (Q9967) As Ordered ONE; +LIDOCAINE 1% MDV 20ML VIAL As Ordered ONE
--- NOTE | 2019-08-31 18:06 | POST-OPPD ---
Postoperative Procedure Note Date Of Procedure: Aug 31, 2019 Time Of Procedure: 18:06 PREOPERATIVE DIAGNOSIS: GJ broken POSTOPERATIVE DIAGNOSIS: same FINDINGS: same PROCEDURE: exchanged SURGEON: kaylin ANESTHESIA: none ESTIMATED BLOOD LOSS: < 5 ml COMPLICATIONS: none POSTOPERATIVE CONDITION: stable NUPUR MARTINEZ MD Aug 31, 2019 18:06
[2019-08-31 18:10] VITALS: BP 132/85
--- NOTE | 2019-09-01 14:54 | REP ---
IR Gastro Jejunostomy catheter exchange. Gastro Jejunostomy catheter exchange under fluoroscopy guidance. Clinical information: Gastro Jejunostomy dependent. Catheter broken. Physician: Dr. Weeks. Procedure: The patient's family member was advised of the benefits, risks and alternatives of the procedure and informed consent was obtained. The time-out was performed with verification of the patient's name, MRN, site of procedure and type of procedure to be performed. The patient was positioned in the supine position on the angiographic table. The site was prepped and draped in the usual sterile fashion. Moderate sedation was not performed. The physician spent 45 minutes of continuous face to face time with the patient. A home housekeeper radiograph reveals a gastro jejunostomy catheter in expected location. The catheter was broken and the balloon ruptured. A Glidewire advantage was advanced through the catheter into the mid jejunum under fluoroscopy guidance. The old catheter was removed over the wire without difficulty. A new 22-Colombian SUSAN gastro jejunostomy catheter was advanced over the wire, into the jejunum, under fluoroscopy guidance. The retention balloon was inflated and the catheter retracted against the anterior stomach wall. The wire was removed. Appropriate positioning of the catheter was confirmed with injection of contrast through the jejunal port. The retention disc was approximated to the skin of the abdominal wall and secured. A sterile dressing was applied. The patient tolerated the procedure well and was returned to the PRU in stable condition. EBL: Less than 5 ml. Complications: None. Conclusion: 1. Gastro Jejunostomy catheter check demonstrates ruptured retention balloon and broken catheter outside the body. 2. Successful exchange of 18 F SUSAN gastro jejunostomy catheter. The catheter is ready for immediate use. Thank you this referral. Electronically Signed by Magdalene Weeks MD 09/01/2019 02:53 P
== END ==
LOC: M IRPRO 15:09
PROVIDERS: ATTEND Radiology Diagnostic Radiology
DX: T85.518A Breakdown (mechanical) of other gastrointestinal prosthetic devices, implants and grafts, initial encounter (principal); X58.XXXA Exposure to other specified factors, initial encounter; Y93.9 Activity, unspecified; Y92.9 Unspecified place or not applicable; Y99.9 Unspecified external cause status
CPT/HCPCS: 43762; C1729; C1769; Q9967

== ENCOUNTER → 2019-09-09 | Outpatient (CLI) | payer MEDICAID ==
[~2019-09-09] MED LIST changes: -ISOVUE-300 61% 50ML VIAL (Q9967) As Ordered ONE; -LIDOCAINE 1% MDV 20ML VIAL As Ordered ONE
== END ==
LOC: M WHC 10:29
PROVIDERS: ATTEND Family Medicine
DX: M81.8 Other osteoporosis without current pathological fracture (principal)

== ENCOUNTER → 2020-01-18 | Outpatient (CLI) | payer MEDICAID ==
[~2020-01-18] MED LIST changes: -CLOT1CRE2 TOP; +CLOT1CRE56 TOP; +FAMO20TA PO; +ISOVUE-300 61% 50ML VIAL As Ordered ONE; +LIDOCAINE 1% MDV 20ML VIAL As Ordered ONE; +ZINC20OI21 TOP; -ZINC60OI TOP
[2020-01-18 16:50] VITALS: BP 132/90
--- NOTE | 2020-01-19 08:53 | REP ---
IR Gastro Jejunostomy catheter replacement. Gastro Jejunostomy catheter placement under fluoroscopy guidance. Clinical information: Gastro Jejunostomy dependent. Catheter not working. Physician: Dr. Weeks. Procedure: The patient's family was advised of the benefits, risks and alternatives of the procedure and informed consent was obtained. The time-out was performed with verification of the patient's name, MRN, site of procedure and type of procedure to be performed. The patient was positioned in the supine position on the angiographic table. The site was prepped and draped in the usual sterile fashion. Moderate sedation was not performed. The physician spent 45 minutes of continuous face to face time with the patient. 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 The external portion of the GJ catheter is broken, therefore could not be injected with contrast. A Glidewire was advanced through the catheter under fluoroscopy guidance but could not be passed through the catheter. The catheter was removed. A 5-Jamaican kumpe catheter was advanced through the gastrostomy tract under fluoroscopy guidance and in conjunction with a Glidewire was used to access the stomach, out into the duodenum and into the jejunum. The wire was removed and injection of contrast through the catheter confirmed jejunal access. A new 22-Jamaican gastrojejunostomy catheter was then advanced over the wire under fluoroscopy guidance into the jejunum. The balloon was inflated and retracted to the anterior stomach wall. The bumper was positioned to sandwich the balloon against anterior abdominal wall. Injection of contrast through the jejunal port confirms the tip is in the jejunum. Both ports were flushed. The catheter was secured in place. The patient tolerated the procedure well and was returned to the PRU in stable condition. EBL: Less than 5 ml. Complications: None. Conclusion: 1. Gastro Jejunostomy catheter check demonstrates catheter is clogged and broken. 2. Successful gastrojejunostomy catheter placement through existing gastrostomy tract. Catheter is ready to use. Thank you this referral. [facility] Electronically Signed by Magdalene Weeks MD 01/19/2020 08:52 A
== END ==
LOC: M IRPRO 13:12
PROVIDERS: ATTEND Radiology Diagnostic Radiology
DX: K94.23 Gastrostomy malfunction (principal)
CPT/HCPCS: 49452; C1729; C1769; C1887; Q9967

== ENCOUNTER 2020-03-29 07:59 | Inpatient (IN) | payer MEDICAID ==
[2020-03-29] VITALS (7 sets, daily range): BP systolic 131–147; BP diastolic 83–95
[~2020-03-29] VITALS: Ht 144.8 cm; Wt 58.7 kg
[~2020-03-29 07:59] MED LIST changes: -ISOVUE-300 61% 50ML VIAL As Ordered ONE; -LIDOCAINE 1% MDV 20ML VIAL As Ordered ONE
[2020-03-29] MEDS ORDERED: COMBIVENT RESPIMAT 100-20MCG INHALER 4GM INH STA (08:27)
[2020-03-29] MEDS ORDERED: NS 500 ML IV ONE ×2 (08:30→11:15)
[2020-03-29] MEDS ORDERED: ZADI1DRO OU (08:37)
[2020-03-29] MEDS ORDERED: ATRO0.063 INH ×2 (08:37)
[2020-03-29] MEDS ORDERED: GUAI100L6 PO (08:37)
[2020-03-29 09:01] LABS: BASO % 0.2 % (0.0-1.0); HEMATOCRIT 50.9 % (36.0-47.0); HEMOGLOBIN 16.8 g/dl (12.0-15.5); LYMPH % 5.1 % (24.0-44.0); MEAN CORPUSCULAR HEMOGLOBIN 33.1 pg (27.0-33.0); MEAN CORPUSCULAR VOLUME 100.4 fl (80.0-96.0); MONO # 1.2 10^3/uL (0.0-0.8); MONO % 6.6 % (0.0-5.0); NEUTROPHILS # 16.3 10^3/uL (1.5-8.5); NEUTROPHILS % 87.9 % (36.0-66.0); PLATELET COUNT, AUTOMATED 268 10^3/uL (150-450); RED BLOOD COUNT 5.07 10^6/uL (4.00-5.40); WHITE BLOOD COUNT 18.5 10^3/uL (4.0-10.0)
[2020-03-29 09:04] LABS: VENOUS BASE EXCESS -3.1 (-2.0-2.0); VENOUS HCO3 21.7 MEQ/L (23.0-27.0); VENOUS O2 SATURATION 94.3 % (60.0-80.0); VENOUS PARTIAL PRESSURE CO2 38.4 mmHg (38.0-50.0); VENOUS PARTIAL PRESSURE O2 68.8 mmHg (30.0-50.0); VENOUS STANDARD HCO3 21.9 MEQ/L; VENOUS TOTAL CO2 22.9 MEQ/L (24.0-28.0)
[2020-03-29] MEDS ORDERED: AZTREONAM 2 GM in D5W MINI-BAG PLUS 50 ML IV ONE (09:15)
[2020-03-29] MEDS ORDERED: LevoFLOXacin IV 750 MG in IV 1 EA IV ONE (09:15)
[2020-03-29 09:58] LABS: BLOOD UREA NITROGEN 41 MG/DL (7-18); CALCIUM LEVEL 8.9 MG/DL (8.5-10.1); CARBON DIOXIDE LEVEL 23 MEQ/L (21-32); CHLORIDE LEVEL 101 MEQ/L (98-107); CREATININE FOR GFR 0.58 MG/DL (0.55-1.30); GLOMERULAR FILTRATION RATE > 60.0 (>60); GLUCOSE, FASTING 126 MG/DL (70-100); POTASSIUM SERUM 3.9 MEQ/L (3.5-5.1); SODIUM LEVEL 134 MEQ/L (136-145)
[2020-03-29 09:59] LABS: ALBUMIN 2.8 GM/DL (3.2-5.2); ALT/SGPT 54 U/L (12-78); BILIRUBIN,DIRECT 0.2 MG/DL (0.0-0.2); BILIRUBIN,TOTAL 0.4 MG/DL (0.2-1.0); LIPASE 3578 U/L (73-393); NT-PRO BNP 964 PG/ML (<125); TOTAL PROTEIN 6.8 GM/DL (6.4-8.2)
[2020-03-29] MEDS ORDERED: ISOVUE-370 76% 100ML VIAL As Ordered ONE (10:17)
[2020-03-29 10:47] LABS: CK-MB VALUE MASS 5.1 NG/ML (<3.6); CPK CREATINE PHOSPHOKINASE 90 U/L (26-192); MB/CK RELATIVE INDEX 5.67 (< OR =4); TROPONIN I < 0.02 NG/ML (< 0.10)
--- NOTE | 2020-03-29 11:27 | REPVR ---
PROCEDURE INFORMATION: Exam: CT Chest With Contrast Exam date and time: 03/29/2020 10:27 AM Age: 39 years old Clinical indication: Shortness of breath; Additional info: Short breath, resp distress TECHNIQUE: Imaging protocol: Computed tomography of the chest with intravenous contrast. Radiation optimization: All CT scans at this facility use at least one of these dose optimization techniques: automated exposure control; mA and/or kV adjustment per patient size (includes targeted exams where dose is matched to clinical indication); or iterative reconstruction. Contrast material: ISOVUE 370; Contrast volume: 100 ml; Contrast route: INTRAVENOUS (IV); COMPARISON: CT Chest without contrast 03/10/2019 3:52 AM FINDINGS: Lungs: There is mild consolidation of both lung bases. This is new since prior study. This could represent pneumonia in the appropriate clinical setting. Pleural space: There is a moderate right pleural effusion. Heart: There is cardiomegaly. Mediastinal space: There is a large fluid containing hiatal hernia. Pulmonary arteries: There is prominence of the pulmonary vascular markings. These findings may represent congestive heart failure, please correlate clinically. Aorta: Unremarkable. No aortic aneurysm. Lymph nodes: Unremarkable. No enlarged lymph nodes. Stomach and bowel: The stomach is moderately distended. Bones/joints: There is moderate/severe thoracic kyphosis which may contribute to patient's respiratory distress, please correlate clinically. Soft tissues: Unremarkable. IMPRESSION: 1. There is prominence of the pulmonary vascular markings. These findings may represent congestive heart failure, please correlate clinically. 2. There is mild consolidation of both lung bases. This is new since prior study. This could represent pneumonia in the appropriate clinical setting. 3. There is a large fluid containing hiatal hernia. 4. There is a moderate right pleural effusion. 5. The stomach is moderately distended. Please refer to contemporaneous CT report of the abdomen/pelvis for additional details. 6. There is moderate/severe thoracic kyphosis which may contribute to patient's respiratory distress, please correlate clinically. Electronically signed by: Hira Parra On 03/29/2020 11:27:13 AM
--- NOTE | 2020-03-29 11:39 | REPVR ---
PROCEDURE INFORMATION: Exam: CT Abdomen And Pelvis With Contrast Exam date and time: 03/29/2020 8:36 AM Age: 39 years old Clinical indication: Bloating; Additional info: Distension and firmness of the abdomen TECHNIQUE: Imaging protocol: Computed tomography of the abdomen and pelvis with intravenous contrast. Radiation optimization: All CT scans at this facility use at least one of these dose optimization techniques: automated exposure control; mA and/or kV adjustment per patient size (includes targeted exams where dose is matched to clinical indication); or iterative reconstruction. Contrast material: ISOVUE 370; Contrast volume: 100 ml; Contrast route: INTRAVENOUS (IV); COMPARISON: No relevant prior studies available. FINDINGS: Tubes, catheters and devices: A gastrostomy tube is present. Liver: Normal. No mass. Gallbladder and bile ducts: Normal. No calcified stones. No ductal dilation. Pancreas: Normal. No ductal dilation. Spleen: Normal. No splenomegaly. Adrenals: Normal. No mass. Kidneys and ureters: Normal. No hydronephrosis. Stomach and bowel: The duodenum and proximal jejunum are moderately distended with fluid and air. There is jejunal wall thickening at the tip of the gastrostomy tube. There is pneumatosis of the jejunal loop that contains the gastrostomy tube. There is a jejunal transition point in the left upper quadrant at the tip of the gastrostomy tube, beyond which there are several collapsed small bowel loops. There is a moderate amount of fluid surrounding these small bowel loops. 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 The colon is moderately distended with air, likely an ileus. There is irregular wall thickening of the splenic flexure concerning for inflammatory/infectious colitis or ischemia. Appendix: A normal appendix is identified. A normal appendix is identified. Intraperitoneal space: Unremarkable. No free air. No significant fluid collection. Vasculature: Unremarkable. No abdominal aortic aneurysm. Lymph nodes: There are multiple enlarged mesenteric lymph nodes. Urinary bladder: Unremarkable as visualized. Reproductive: Unremarkable as visualized. Bones/joints: There is chronic deformity of both hip joints. Soft tissues: Unremarkable. IMPRESSION: 1. The duodenum and proximal jejunum are moderately distended with fluid and air. There is jejunal wall thickening at the tip of the gastrostomy tube. There is pneumatosis of the jejunal loop that contains the gastrostomy tube. There is a jejunal transition point in the left upper quadrant at the tip of the gastrostomy tube, beyond which there are several collapsed small bowel loops. There is a moderate amount of fluid surrounding these small bowel loops. 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 Surgical consultation is recommended. 2. The colon is moderately distended with air, likely an ileus. There is irregular wall thickening of the splenic flexure and sigmoid colon concerning for inflammatory/infectious colitis or ischemia. 3. There are multiple enlarged mesenteric lymph nodes. Electronically signed by: Hira Parra On 03/29/2020 11:38:48 AM
--- NOTE | 2020-03-29 13:21 | HPEPDOC ---
[facility] Medical History & Physical Date of Admission Mar 29, 2020 Date of Service: Mar 29, [address] Brock Attending Physician: My Gao MD History and Physical CHIEF COMPLAINT: worsening shortness of breath HISTORY OF PRESENT ILLNESS: Patient is a 39-year-old female with past medical history of spastic cerebral palsy with quadriparesis, profound mental retardation, seizure disorder, chronic hypothymia, history of recurrent aspiration pneumonia, history of constrictive pericarditis who presented from [facility] with the chief complaint of increasing destiny rtness of breath since last evening. According to staff at [facility], it is believed that last evening the patient aspirated her saliva. This morning she had some difficulty breathing and increased cough which was nonproductive. The patient is nonverbal and does not communicate. They gave her a nebulizer meant which helped only minimally; however, the patient was persistently tachypnea and tachycardic. There was no documented fevers, chills, nausea, vomiting, abdominal pains, difficulty with her feeding tube, increased lethargy or abdominal distention reported. The decision was made to bring her in for further evaluation. In the ER the patient's vital signs were abnormal the heart rate of 102, re spiratory rate 44, she was 92% on 2 L nasal cannula. The patient does not use oxygen at home. WBC 18.5, H&H 16.8/50.9, sodium 134, INSTRUMENTATION TECH 964, lipase 3578, lactic acid 1.7, troponin negative 1. The patient was using accessory muscles to breathe and appeared to be in distress. CT chest: CHF possible, mild consolidation of both lung bases indicating possible pneumonia in the appropriate clinical setting, large fluid containing hiatal hernia, moderate right pleural effusion, stomach is moderately distended- refer to contemporaneous CT report of the abdomen/pelvis for additional details, moderate/severe thoracic kyphosis which may contribute to patient's respiratory distress. CT abd/pelvis: 1. high-grade jejunal obstruction with pneumatosis, an appearance concerning for ischemia and/or impending perforation, colon is moderately distended with air- likely an ileus, irregular wall thickening of the splenic flexure and sigmoid colon concerning for inflammatory/infectious colitis or ischemia, multiple enlarged mesenteric lymph nodes. She was given to 500 mL boluses of fluid and Levaquin, aztreonam for IV antibiotics. Surgery evaluated at bedside and discussed possible surgery with her mother, her HCP. Her mother was unsure of whether or not she would agree to surgery at this time, so surgery will be monitoring closely. Feeding tube was set to gravity. Patient was ad mitted with diagnosis of SBO vs. ileus, bilateral community acquired with possible aspiration PNA, sepsis, acute on chronic CHF exacerbation, dehydration. REVIEW OF SYSTEMS: Patient is unable to provide 2/2 to profound MR PAST MEDICAL HISTORY: Spastic cerebral palsy with quadriparesis. Profound mental retardation. Seizure disorder. Chronic hypothermia. Osteopenia. Chronically elevated LFT, felt to be related to chronic anticonvulsant use History of recurrent UTI. History of recurrent aspiration pneumonia. Acneiform dermatitis. Hx of constrictive pericarditis Hx of recurrent pleural effusion Hx of recurrent aspiration pneumonia Fx tibial plateau Fx of right humerus 02/22/2018 Hx of pericardial effusion s/p drainage 2018 PAST SURGICAL HISTORY: 1. Gastrostomy tube (G-tube) placement in 1991. 2. [place] SUSAN gastrojejunostomy (GJ) tube placed in 2014 and has been routinely changed through interventional radiology. SOCIAL HISTORY: She is a resident of [facility]. Parents are her legal guardians. Nonsmoker. No recreational drug use. FAMILY HISTORY: Father: ALIVE 68 YRS, LIPIDS Mother: ALIVE 68 YRS, ULCERATIVE COLITIS, CATARACTS Siblings: Brother (1) - NO KNOWN MEDICAL PROBLEMS. Sister (1) - NO KNOWN MEDICAL PROBLEMS ALLERGIES: Include AMOXICILLIN, CLARITHROMYCIN, CLAVULANIC ACID, CORTICOTROPIN, GRAPEFRUIT, HAEMOPHILUS INFLUENZAE VACCINE, LAMOTRIGINE, PENICILLIN, TETANUS TOXOID. ALLERGIES: Please see below. HOME MEDICATIONS: Please see below. PHYSICAL EXAMINATION: VS: Please see below CONSTITUTIONAL: Tachypneic, in bed, noncommunicative, does not follow commands- baseline EYES: roving eyes, PERRLA HENT, MOUTH: Normocephalic, atraumatic, dry mucous membranes NECK: SUPPLE, no JVD, no lymphadenopathy, no carotid bruit CV: Tachycardic, regular rhythm, S1S2 normal, no murmurs/rubs/gallops RESPIRATORY: Rhonchi bilaterally, crackles in lung bases, no rales/wheezes GI: Distended, tympanic, BS hypoactive in 4 quadrants, no organomegaly, feeding tube in place in left abd , cringes on palpation of abd diffusely : Deferred MUSCULOSKELETAL:ROM not tested. No cyanosis, clubbing, swelling, joint deformity, extremity edema ExT: pulses + in all ext, contracture of b/l hands. INTEGUMENTARY: Intact, no erythema. Dry skin on face, underarms, behind ears, scaling NEUROLOGIC: Cranial Nerves II-XII unable to be tested, no focal deficits LABORATORY DATA: Please see below MICROBIOLOGY: Resp panel: neg Blood cultures x2 sets: pending Sputum Cx: to be collected UA neg IMAGING: CT chest: 1. There is prominence of the pulmonary vascular markings. These findings may represent congestive heart failure, please correlate clinically. 2. There is mild consolidation of both lung bases. This is new since prior study. This could represent pneumonia in the appropriate clinical setting. 3. There is a large fluid containing hiatal hernia. 4. There is a moderate right pleural effusion. 5. The stomach is moderately distended. Please refer to contemporaneous CT report of the abdomen/pelvis for additional details. 6. There is moderate/severe thoracic kyphosis which may contribute to patient's respiratory distress, please correlate clinically. CT abd/pelvis: 1. The duodenum and proximal jejunum are moderately distended with fluid and air. There is jejunal wall thickening at the tip of the gastrostomy tube. There is pneumatosis of the jejunal loop that contains the gastrostomy tube. There is a jejunal transition point in the left upper quadrant at the tip of the gastrostomy tube, beyond which there are several collapsed small bowel loops. There is a moderate amount of fluid surrounding these small bowel loops. 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 Surgical consultation is recommended. 2. The colon is moderately distended with air, likely an ileus. There is irregular wall thickening of the splenic flexure and sigmoid colon concerning for inflammatory/infectious colitis or ischemia. 3. There are multiple enlarged mesenteric lymph nodes. ASSESSMENT: 39-year-old female with past nuchal history of spastic cerebral palsy with quadriparesis, profound MR, seizure disorder, chronic hypothymia, history of recurrent aspiration pneumonia, history of constrictive pericarditis admitted with diagnosis of SBO vs. ileus, bilateral community acquired with possible aspiration PNA, sepsis, acute on chronic CHF exacerbation, dehydration. PLAN: # Acute hypoxic respiratory failure multifactorial to bilateral community acquired PNA, possible aspiration PNA, CHF with moderate right side pleural effusion, moderate/severe thoracic kyphosis. -Please see treatment plans below for individual issues # Bilateral community acquired PNA, possible aspiration PNA with sepsis. Hx of recurrent aspiration PNA -WBC 18K, HR 102, RR 44, CT chest above -Saturating at 94% on 2 L NC, not on home O2 -Blood cultures, sputum cultures ordered -After consulting with clinical pharmacy, started on ceftriaxone, doxycycline, metronidazole, duonebs ATC, albuterol PRN -Aspiration precautions # Diastolic CHF exacerbation with right side pleural effusion. Hx of restrictive pericarditis, pericardial effusion and left side pleural effusion requiring d rainage. -CT chest above but when reviewed the CT with thoracic surgery(Dr. Sims) he states pleural effusion is trivial. No overt signs of fluid overload on physical exam, no JVD -BNP elevated at 964, last in system was <200. -Last echo 07/2015: LV diastolic dysfunction, EF 65% -Unfortunately with dehydration patient will need to be on gentle IVFs, can intermittently diurese. Monitor for s/s of fluid overload. -Holding all home meds. # Abdominal distention possibly 2/2 to SBO vs. ileus vs. acute pancreatitis with pneumatosis. Per surgery perforation is lower on differential but cannot be excluded. -Lipase 3578, LA wnl, + dehydration, only very small BM this AM. Distended, tympanic abd with hypoactive BS. Cringes on palpation of abdomen -Feeding tube to gravity, NPO -On gentle IVF hydration, will add morphine for s/s of pain -F/u lactic acid, daily labs -Per surgery (Dr. Brock) conversation was had with mother (POA/HCP) who, at this time, is unsure of wanting surgery. Surgery is going to follow. # Dehydration 2/2 to acute issues above -Dry mucosa, H/H hemoconcentrated, abnormal labs -Gentle IVFs -Monitor electrolytes and fluid status -Todd placed # Hx of spastic cerebral palsy with quadriparesis, profound MR -[facility] staff at bedside, patient at baseline: noncommunicative -Resume home meds when able. #Seizure disorder -No seizure activity noted -C/w keppra BID IV #Skin infection of face, underarms, behind ears -C/w home clindamycin gel. #Chronic hypothermia -Temp wnl # GI px. -IV PPI #DVT px. - Teds/scds. Holding off on AC due to patient may needing surgery in next 12-24 hrs. If not, then restart AC. DISPOSITION: Admitted under inpatient status. Surgery following closely. Plan is hopefully discharge back to [facility] when medically improved. Vital Signs Vital Signs Date Time Temp Pulse Resp B/P (MAP) Pulse Ox O2 Delivery O2 Flow Rate FiO2 03/29/20 09:18 95 136/88 (104) 96 Nasal Cannula 2.0 03/29/20 08:59 96.8 03/29/20 08:19 43 Laboratory Data Labs 24H Laboratory Tests 2 03/29/20 08:44: Urine Color YELLOW, Urine Appearance HAZY, Urine pH 5.0, Urine Specific [place] 1.023, Urine Protein NEGATIVE, Urine Glucose (UA) 1+H, Urine Ketones NEGATIVE, Urine Blood NEGATIVE, Urine Nitrite NEGATIVE, Urine Bilirubin NEGATIVE, Urine Urobilinogen 0.2, Urine Leukocyte Esterase NEGATIVE, Urine WBC (Auto) 0, Urine RBC (Auto) 1, Urine Hyaline Casts (Auto) 5, Urine Bacteria (Auto) 1+H, Urine Squamous Epithelial Cells 0, Urine Mucus (Auto) SMALL, Urine Sperm (Auto) , Blood Gas Bicarbonate Standard 21.9, Venous Blood pH 7.370, Venous Blood Partial Pressure CO2 38.4, Venous Blood Partial Pressure O2 68.8H, Venous Blood Total Carbon Dioxide 22.9L, Venous Blood HCO3 21.7L, Venous Blood Oxygen Saturation 94.3H, Venous Blood Base Excess -3.1L, Anion Gap 10, Glomerular Filtration Rate > 60.0, Calcium Level 8.9, Total Bilirubin 0.4, Direct Bilirubin 0.2, Aspartate Amino Transf (AST/SGOT) 38H, Alanine Aminotransferase (ALT/SGPT) 54, Alkaline Phosphatase 234H, Total Creatine Kinase 90, Creatine Kinase MB 5.1H, Creatine K inase MB Relative Index 5.67H, Troponin I < 0.02, [id number]-Type Natriuretic Peptide 964H, Total Protein 6.8, Albumin 2.8L, Albumin/Globulin Ratio 0.7L, Lipase 3578H 03/29/20 08:45: Immature Granulocyte % (Auto) 0.2, Neutrophils (%) (Auto) 87.9H, Lymphocytes (%) (Auto) 5.1L, Monocytes (%) (Auto) 6.6H, Eosinophils (%) (Auto) 0.0, Basophils (%) (Auto) 0.2, Neutrophils # (Auto) 16.3H, Lymphocytes # (Auto) 1.0L, Monocytes # (Auto) 1.2H, Eosinophils # (Auto) 0.0, Basophils # (Auto) 0.0, Nucleated Red Blood Cells % (auto) 0.0 03/29/20 08:46: Lactic Acid Level 1.7 CBC/BMP Laboratory Tests 03/29/20 08:44 03/29/20 08:45 Microbiology Microbiology 03/29/20 Blood Culture, Received Pending 03/29/20 Blood Culture, Received Pending 03/29/20 Respiratory Virus Panel (PCR) (SUSAN) - Final, Complete Home Medications Scheduled Cetirizine HCl (Cetirizine HCl) 10 Mg Tablet, 10 MG GT QHS Clindamycin Phosphate (Clindagel) 1 % Gel, 1 DOSE TOP BID TO FACE, UNDERARMS AND BEHIND EARS Clorazepate Dipotassium (Tranxene T-Tab) 7.5 Mg Tab, 7.5 MG GT BID Cyproheptadine HCl (Cyproheptadine HCl) 4 Mg Tab, 8 MG GT TID Famotidine (Famotidine) 20 Mg Tablet, 20 MG PO BID Ipratropium [place] (Atrovent Hfa) 12.9 Gm Hfa.aer.ad, 1 PUFF INH QID Lacosamide (Vimpat) 10 Mg/Ml Caroline, 5 ML GT QAM Lacosamide (Vimpat) 10 Mg/Ml Caroline, 7.5 ML GT QHS Lactose-Reduced Food/Fiber (Jevity 1.2 Cedric Liquid) 237 Ml Liquid, 2 CAN GT QPM Levalbuterol HCl (Levalbuterol HCl) 1.25 Mg/3 Ml Neb, 1.25 MG INH QID MAY MIX WITH IPRATROPIUM Levetiracetam (Levetiracetam) 500 Mg/5 Ml Caroline, 500 MG GT BID Nystatin (Nystatin Powder) 100,000 Unit/Gm Pow, 1 DOSE TOP BID APPLIED TO GROIN AREA Polyethylene Glycol 3350 (Miralax) 1 Pow Pow, 17 GM GT QPM HOLD FOR LOOSE STOOLS Protein Supplement (Promod) 946 Ml Liquid, 60 ML GT QHS MIX WITH 30 CC OF WATER Scopolamine (Transderm-Scop) 1.5 Mg Dis, 1.5 MG TD Q3RD Wheat Dextrin (Benefiber) 1 Each Powd.pack, 1 POW GT TID AM, NOON, HS: MIX WITH 60CC OF WATER Scheduled PRN Bisacodyl (Dulcolax) 10 Mg Sup, 10 MG CA ASDIRECTED PRN for CONSTIPATION USE AT QHS ON DAY 5 WITH NO BM Docusate Sodium (Docusate Sodium) 50 Mg/5 Ml Liq, 150 MG GT ASDIRECTED PRN for CONSTIPATION BID IF NO BM IN MORE THAN 2 DAYS. REPEAT IF NO BM MORE THAN 3 DAYS Guaifenesin (Guaifenesin) 100 Mg/5 Ml Liquid, 10 ML PO Q4H PRN for CHEST CONGESTION Ipratropium [place] (Atrovent Hfa) 12.9 Gm Hfa.aer.ad, 1 PUFF INH Q2H PRN for SHORTNESS OF BREATH Ketotifen Fumarate (Zaditor) 5 Ml Drops, 1-2 DROP OU BID PRN for ITCHY EYES Levalbuterol HCl (Levalbuterol HCl) 1.25 Mg/3 Ml Neb, 1.25 MG INH Q2H PRN for SHORTNESS OF BREATH Allergies Coded Allergies: Penicillins (Verified Allergy, Intermediate, rash, 03/29/20) clarithromycin (Verified Allergy, Intermediate, rash , 03/29/20) increase tregrtol level clavulanic acid (Verified Allergy, Intermediate, rash, 03/29/20) corticotropin (Verified Allergy, Intermediate, rash, 03/29/20) lamotrigine (Verified Allergy, Intermediate, blisters/rash, 03/29/20) Influenza Virus Vaccines (Verified Allergy, Unknown, 03/29/20) amoxicillin (Verified Allergy, Unknown, 03/29/20) grapefruit (Verified Allergy, Unknown, 03/29/20) tetanus and diphtheria toxoids (Verified Allergy, Unknown, 03/29/20) Uncoded Allergies: adrenocorticotrophic hormone (Allergy, Unknown, 03/29/20) A-FIB/CHADSVASC A-FIB History Current/History of A-Fib/PAF?: No Current PO Anticoag Therapy: No Age/Risk Factor Scoring CHADSVASC: CHADSVASC Response (Comments) Value Age Risk Factor Age < 65 years old 0 Gender Risk Factor Female 1 Hx of CHF Yes 1 Hx of HTN No 0 Hx of Stroke/TIA/or VTE No 0 Hx of Diabetes No 0 Hx of Vascular Disease No 0 Total 2 Treatment Treatment ordered: NONE, Other Other anticoagulant ordered: My Wright MD Mar 29, 2020 13:21
[2020-03-29] MEDS ORDERED: ALBUTEROL SULFATE 2.5 MG/0.5 ML INH NEB SOLN NEB PRN (14:00)
[2020-03-29] MEDS ORDERED: AZTREONAM 2 GM in D5W MINI-BAG PLUS 50 ML IV SCH (14:30)
[2020-03-29] MEDS ORDERED: levETIRAcetam INJection 500 MG in D5W MINI-BAG PLUS 100 ML IV SCH (16:00)
[2020-03-29] MEDS ORDERED: DOXYCYCLINE HYCLATE 100 MG in D5W MINI-BAG PLUS 100 ML IV SCH (16:00)
[2020-03-29] MEDS: IPRATROPIUM 0.5MG/ALBUTEROL 2.5MG INH SOL UD 3ML (DUONEB) NEB SCH ×2 (16:47→19:20)
[2020-03-29] MEDS: NS 1,000 ML IV SCH (17:51)
[2020-03-29] MEDS: metroNIDAZOLE 500 MG in IV 1 EA IV SCH ×2 (17:52→22:46)
[2020-03-29] MEDS ORDERED: cefTRIAXone SOD 1 GM in D5W MINI-BAG PLUS 50 ML IV SCH (18:00)
[2020-03-29] MEDS: cefTRIAXone SOD 1 GM in D5W MINI-BAG PLUS 50 ML IV SCH (19:04)
[2020-03-29 19:20] LABS: ABG BASE EXCESS -1.4 (-2.0-2.0); ABG HCO3 22.7 MEQ/L (22.0-26.0); ABG O2 SATURATION 92.8 % (95.0-99.0); ABG PARTIAL PRESSURE CO2 36.7 mmHg (35.0-45.0); ABG PARTIAL PRESSURE O2 60.6 mmHg (75.0-100.0); ABG STANDARD HCO3 23.2 MEQ/L (22.0-26.0); ABG TOTAL CO2 23.8 MEQ/L (22.0-29.0); ABG pH (ARTERIAL) 7.409 UNITS (7.350-7.450)
[2020-03-29] MEDS: DOXYCYCLINE HYCLATE 100 MG in D5W MINI-BAG PLUS 100 ML IV SCH (20:20)
[2020-03-29] MEDS: levETIRAcetam INJection 500 MG in D5W MINI-BAG PLUS 100 ML IV SCH (21:39)
[2020-03-29] MEDS: CLINDAMYCIN TOP 1% SOLN 60 ML BTL TOP SCH (22:47)
[2020-03-29] MEDS: SCOPOLAMINE 1MG TRANSDERMAL PATCH TOP SCH (23:00)
[2020-03-30] VITALS (17 sets, daily range): BP systolic 126–152; BP diastolic 60–98
[2020-03-30 04:57] LABS: HEMATOCRIT 51.4 % (36.0-47.0); HEMOGLOBIN 17.3 g/dl (12.0-15.5); MEAN CORPUSCULAR HGB CONC 33.7 g/dl (32.0-36.5); MEAN CORPUSCULAR VOLUME 97.9 fl (80.0-96.0); PLATELET COUNT, AUTOMATED 251 10^3/uL (150-450); RED BLOOD COUNT 5.25 10^6/uL (4.00-5.40); WHITE BLOOD COUNT 11.2 10^3/uL (4.0-10.0)
[2020-03-30 05:19] LABS: ALBUMIN 2.6 GM/DL (3.2-5.2); ALT/SGPT 44 U/L (12-78); BILIRUBIN,TOTAL 0.5 MG/DL (0.2-1.0); BLOOD UREA NITROGEN 23 MG/DL (7-18); CALCIUM LEVEL 8.5 MG/DL (8.5-10.1); CARBON DIOXIDE LEVEL 24 MEQ/L (21-32); CHLORIDE LEVEL 106 MEQ/L (98-107); CREATININE FOR GFR 0.37 MG/DL (0.55-1.30); GLOMERULAR FILTRATION RATE > 60.0 (>60); GLUCOSE, FASTING 131 MG/DL (70-100); POTASSIUM SERUM 3.8 MEQ/L (3.5-5.1); SODIUM LEVEL 140 MEQ/L (136-145); TOTAL PROTEIN 6.4 GM/DL (6.4-8.2)
[2020-03-30 05:43] LABS: ABG BASE EXCESS -0.3 (-2.0-2.0); ABG HCO3 23.7 MEQ/L (22.0-26.0); ABG O2 SATURATION 95.4 % (95.0-99.0); ABG PARTIAL PRESSURE CO2 37.3 mmHg (35.0-45.0); ABG PARTIAL PRESSURE O2 72.4 mmHg (75.0-100.0); ABG STANDARD HCO3 24.2 MEQ/L (22.0-26.0); ABG TOTAL CO2 24.9 MEQ/L (22.0-29.0); ABG pH (ARTERIAL) 7.421 UNITS (7.350-7.450)
[2020-03-30] MEDS: metroNIDAZOLE 500 MG in IV 1 EA IV SCH ×3 (07:28→23:36)
[2020-03-30] MEDS: IPRATROPIUM 0.5MG/ALBUTEROL 2.5MG INH SOL UD 3ML (DUONEB) NEB SCH ×4 (07:51→18:17)
[2020-03-30] MEDS: DOXYCYCLINE HYCLATE 100 MG in D5W MINI-BAG PLUS 100 ML IV SCH ×2 (08:41→20:41)
[2020-03-30] MEDS: PANTOPRAZOLE 40MG VIAL (C9113 PER 1) IV SCH (08:41)
[2020-03-30] MEDS ORDERED: LevoFLOXacin IV 750 MG in IV 1 EA IV SCH (09:00)
[2020-03-30] MEDS: levETIRAcetam INJection 500 MG in D5W MINI-BAG PLUS 100 ML IV SCH ×2 (09:42→22:25)
[2020-03-30] MEDS: CLINDAMYCIN TOP 1% SOLN 60 ML BTL TOP SCH ×2 (10:00→21:00)
--- NOTE | 2020-03-30 11:07 | IPNPDOC ---
Date Seen The patient was seen on 03/30/20. Progress Note SUBJECTIVE: Improved respiratory status with intermittent suctioning overnight and connecting G tube to intermittent suction. 700 mL out overnight to bedside canister from G tube. Overall improved. No s/s of pain. OBJECTIVE PHYSICAL EXAMINATION: VS: Please see below CONSTITUTIONAL: Noncommunicative, does not follow commands-baseline, appears comfortable EYES: roving eyes, PERRLA, left eye sclera slightly pink, no conjunctivitis HENT, MOUTH: Normocephalic, atraumatic, moist mucous membranes. NECK: SUPPLE, no JVD, no lymphadenopathy, no carotid bruit CV: NSR, S1S2 normal, no murmurs/rubs/gallops RESPIRATORY: Rhonchi bilaterally but improved from admission, crackles in lung bases, no rales/wheezes GI: Distended abd but less tympanic, BS hypoactive in 4 quadrants, no organomegaly, Gtube, J tube in place , no signs of pain on palpation of abd. : Todd cath MUSCULOSKELETAL:ROM not tested. No cyanosis, clubbing, swelling, joint deformity, extremity edema ExT: pulses + in all ext, contracture of b/l hands. INTEGUMENTARY: Intact, no erythema. Dry skin on face, underarms, behind ears, scaling NEUROLOGIC: Cranial Nerves II-XII unable to be tested, no focal deficits LABORATORY DATA: Please see below MICROBIOLOGY: Resp panel: neg Blood cultures x2 sets: NG at 24 hrs Sputum Cx: pending UA neg IMAGING: CT chest: 1. There is prominence of the pulmonary vascular markings. These findings may represent congestive heart failure, please correlate clinically. 2. There is mild consolidation of both lung bases. This is new since prior study. This could represent pneumonia in the appropriate clinical setting. 3. There is a large fluid containing hiatal hernia. 4. There is a moderate right pleural effusion. 5. The stomach is moderately distended. Please refer to contemporaneous CT report of the abdomen/pelvis for additional details. 6. There is moderate/severe thoracic kyphosis which may contribute to patient's respiratory distress, please correlate clinically. CT abd/pelvis: 1. The duodenum and proximal jejunum are moderately distended with fluid and air. There is jejunal wall thickening at the tip of the gastrostomy tube. There is pneumatosis of the jejunal loop that contains the gastrostomy tube. There is a jejunal transition point in the left upper quadrant at the tip of the gastrostomy tube, beyond which there are several collapsed small bowel loops. There is a moderate amount of fluid surrounding these small bowel loops. 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 Surgical consultation is recommended. 2. The colon is moderately distended with air, likely an ileus. There is irregular wall thickening of the splenic flexure and sigmoid colon concerning for inflammatory/infectious colitis or ischemia. 3. There are multiple enlarged mesenteric lymph nodes. ASSESSMENT: 39-year-old female with past nuchal history of spastic cerebral palsy with quadriparesis, profound MR, seizure disorder, chronic hypothymia, history of recurrent aspiration pneumonia, history of constrictive pericarditis admitted with diagnosis of SBO vs. ileus, bilateral community acquired with p ossible aspiration PNA, sepsis, acute on chronic CHF exacerbation, dehydration. PLAN: # Acute hypoxic respiratory failure multifactorial to bilateral community acquired PNA, possible aspiration PNA, CHF with moderate right side pleural effusion, moderate/severe thoracic kyphosis. -Please see treatment plans below for individual issues # Bilateral community acquired PNA, possible aspiration PNA with sepsis. Hx of recurrent aspiration PNA -WBC 11.2K, HR 10-105, RR 20-22, 96% on 3 L NC- not on home O2 -Blood cultures NG, sputum culture pending -Day 2 ceftriaxone, doxycycline, metronidazole, duonebs ATC, albuterol PRN -Aspiration precautions -Intermittent suctioning PRN # Diastolic CHF exacerbation with right side pleural effusion. Hx of restrictive pericarditis, pericardial effusion and left side pleural effusion requiring drainage. -CT chest above but when reviewed the CT with thoracic surgery(Dr. Sims) he states pleural effusion is trivial. No overt signs of fluid overload on physical exam, no JVD -BNP elevated at 964, last in system was <200. -Last echo 07/2015: LV diastolic dysfunction, EF 65% -On gentle IVFs for dehydration; however, monitor for s/s of fluid overload. -Can intermittently diurese PRN -Holding all home meds. # Abdominal distention possibly 2/2 to SBO vs. ileus vs pneumatosis. Per surgery perforation is lower on differential but cannot be excluded. -Lipase 3578 but not suspicious for pancreatitis per surgery -LA wnl, + dehydration, small BM last evening. Distended abd- slightly improvement, no s/s of pain -J tube to gravity, G tube intermittent suction, NPO -C/w IVF hydration -F/u daily labs -Surgery following # Dehydration 2/2 to acute issues above- improving -Dry mucosa, H/H hemoconcentrated, abnormal labs improving -Gentle IVFs -Monitor electrolytes and fluid status -Todd placed # Hx of spastic cerebral palsy with quadriparesis, profound MR -[facility] staff at bedside, patient at baseline: noncommunicative -Resume home meds when able. #Seizure disorder -No seizure activity noted -C/w keppra BID IV #Skin infection of face, underarms, behind ears -C/w home clindamycin gel. #Chronic hypothermia -Temp wnl # GI px. -IV PPI #DVT px. - Teds/scds. Holding off on AC due to patient may needing surgery in next 12-24 hrs. If not, then restart AC. DISPOSITION: Downgrading to PCU from ICU today. Admitted under inpatient status. Surgery following closely. Plan is hopefully discharge back to [facility] when medically improved. VS, I&O, 24H, [place] Vital Signs/I&O Vital Signs Date Time Temp Pulse Resp B/P (MAP) Pulse Ox O2 Delivery O2 Flow Rate FiO2 03/30/20 10:00 105 20 131/87 (102) 98 High Flow Cannula 3.0 03/30/20 08:00 97.1 03/29/20 22:00 50 I&O- Last 24 Hours up to 6 AM 03/30/20 06:00 Intake Total 1738 ml Output Total 2040 ml Balance -302 ml Laboratory Data 24H LABS Laboratory Tests 2 03/29/20 14:31: Lactic Acid Level 1.2 03/29/20 19:13: Blood Gas Bicarbonate Standard 23.2, Arterial Blood pH 7.409, Arterial Blood Partial Pressure CO2 36.7, Arterial Blood Partial Pressure O2 60.6L, Arterial Blood Total CO2 23.8, Arterial Blood HCO3 22.7, Arterial Blood Base Excess -1.4, Arterial Blood Oxygen Saturation 92.8L 03/30/20 04:47: Lactic Acid Level 1.5, Nucleated Red Blood Cells % (auto) 0.0, Anion Gap 10, Glomerular Filtration Rate > 60.0, Calcium Level 8.5, Total Bilirubin 0.5, Aspar soriano Amino Transf (AST/SGOT) 43H, Alanine Aminotransferase (ALT/SGPT) 44, Alkaline Phosphatase 187H, Total Protein 6.4, Albumin 2.6L, Albumin/Globulin Ratio 0.7L 03/30/20 05:32: Blood Gas Bicarbonate Standard 24.2, Arterial Blood pH 7.421, Arterial Blood Partial Pressure CO2 37.3, Arterial Blood Partial Pressure O2 72.4L, Arterial Blood Total CO2 24.9, Arterial Blood HCO3 23.7, Arterial Blood Base Excess -0.3, Arterial Blood Oxygen Saturation 95.4 CBC/BMP Laboratory Tests 03/30/20 04:47 Microbiology Microbiology 03/29/20 Gram Stain - Final, Resulted 03/29/20 Sputum Culture, Resulted Pending 03/29/20 Blood Culture - Preliminary, Resulted No growth after 24 hours . All specim... 03/29/20 Blood Culture - Preliminary, Resulted No growth after 24 hours . All specim... 03/29/20 Respiratory Virus Panel (PCR) (SUSAN) - Final, Complete Current Medications Current Medications Medications (Trade) Dose Ordered Sig/Fish Route PRN Reason Start Time Stop Time Status Last Admin Dose Admin Albuterol Sulfate (Proventil Neb) 2.5 mg Q2HP PRN NEB SOB/WHEEZING 03/29/20 14:00 Albuterol/ Ipratropium (Combivent Respimat 100-20mcg) 4 puff NOW STAT INH 03/29/20 08:27 03/29/20 08:29 DC 03/29/20 08:33 Albuterol/ Ipratropium (Duoneb (Ipr 0.5mg/Alb 2.5mg)) 3 ml RQID NEB 03/29/20 16:00 03/30/20 07:51 Aztreonam 2 gm/ Dextrose 50 ml @ 50 mls/hr Q8H IV 03/29/20 14:30 03/29/20 15:07 DC Ceftriaxone Sodium 1 gm/ Dextrose 50 ml @ 100 mls/hr Q24H IV 03/29/20 18:00 03/29/20 18:42 DC Ceftriaxone Sodium 1 gm/ Dextrose 50 ml @ 100 mls/hr Q24H IV 03/29/20 20:00 03/29/20 19:04 Clindamycin Phosphate (Cleocin 1% Top) 1 dose BID TOP 03/29/20 21:00 03/30/20 10:00 Doxycycline Hyclate 100 mg/ Dextrose 100 ml @ 100 mls/hr Q12H IV 03/29/20 16:00 03/29/20 18:41 DC Doxycycline Hyclate 100 mg/ Dextrose 100 ml @ 100 mls/hr Q12H IV 03/29/20 20:00 03/30/20 08:41 Home Med (Med Rec Complete!) ASDIRECTED XX 03/29/20 08:45 03/29/20 08:41 DC Levetiracetam 500 mg/Dextrose 105 ml @ 420 mls/hr Q12H IV 03/29/20 16:00 03/29/20 15:50 DC Levetiracetam 500 mg/Dextrose 105 ml @ 420 mls/hr Q12H IV 03/29/20 21:00 03/30/20 09:42 Levofloxacin 750 mg/IV Miscellaneous Supplies 150 ml @ 100 mls/hr Q24H IV 03/30/20 09:00 03/29/20 14:47 DC Metronidazole 500 mg/IV Miscellaneous Supplies 100 ml @ 100 mls/hr Q8H IV 03/29/20 15:00 03/30/20 07:28 Pantoprazole Sodium (Protonix) 40 mg DAILY IV 03/30/20 09:00 03/30/20 08:41 Scopolamine (Scopolamine) 1 mg Q72H TOP 03/29/20 23:00 03/29/20 23:00 Sodium Chloride 1,000 ml @ 80 mls/hr [id number] IV 03/29/20 15:00 03/29/20 17:51 Allergies Coded Allergies: Penicillins (Verified Allergy, Intermediate, rash, 03/29/20) PT HAS TOLERATE MX CEPHALOSPORINS IN THE PAST WITHOUT ISSUE clarithromycin (Verified Allergy, Intermediate, rash , 03/29/20) increase tregrtol level clavulanic acid (Verified Allergy, Intermediate, rash, 03/29/20) corticotropin (Verified Allergy, Intermediate, rash, 03/29/20) lamotrigine (Verified Allergy, Intermediate, blisters/rash, 03/29/20) Influenza Virus Vaccines (Verified Allergy, Unknown, 03/29/20) amoxicillin (Verified Allergy, Unknown, 03/29/20) grapefruit (Verified Allergy, Unknown, 03/29/20) tetanus and diphtheria toxoids (Verified Allergy, Unknown, 03/29/20) Uncoded Allergies: adrenocorticotrophic hormone (Allergy, Unknown, 03/29/20) My Gao MD Mar 30, 2020 11:07
[2020-03-30] MEDS: NS 1,000 ML IV SCH (12:43)
[2020-03-30] MEDS: POLYVINYL ALCOHOL OPHTH SOLN 15 ML(LIQUITEARS) OS SCH ×2 (15:37→21:00)
--- NOTE | 2020-03-30 16:19 | ECHO ---
DATE OF PROCEDURE: 03/29/2020 Age: 39 Gender: Female Height: Not recorded Weight: 152 pounds PATIENT LOCATION: Emergency room (ER). REFERRING PHYSICIAN: My Gao MD INDICATION: Congestive heart failure (CHF). MEASUREMENTS: 2D Measurements: RV 3.8 cm LV 4.1 cm Septum 1.2 cm Posterior wall 1.2 cm Aortic Root 3.4 cm LA 4.4 cm LVEF 75% Doppler Measurements: AV Unable to obtain LVOT Unable to obtain MV-E 78, A 123, E/A ratio 0.6 E prime medial 8.3, A prime medial 12, E prime lateral 10.4 Average E/E prime ratio 8.3/PCWP 12.2 mmHg PV 0.75 m/s Pulmonary artery acceleration time 79 m/s PASP 46 mmHg COMMENTS: Normal sinus rhythm with right bundle branch block. Technically difficult study, but some diagnostic useful information was still obtained. M-mode and two-dimensional echocardiography was attempted with pulsed, continuous wave, color flow, and tissue Doppler studies. Normal left ventricular size with borderline left ventricular hypertrophy and hyperkinetic wall motion. Mildly dilated left atrium with grade 1 left ventricular (LV) diastolic dysfunction, but currently normal estimated mean left atrial pressure. Right heart chambers appeared to be normal in size with hyperkinetic wall motion, but Doppler sign of perhaps moderate pulmonary hypertension. Unable to visualize her inferior vena cava (IVC) to further estimate central venous pressure. Normal aortic dimensions. Normal appearing and functioning valvular structures. No apparent intracardiac mass that we could visualize. Miniscule posterior pericardial effusion. MTDD
[2020-03-30] MEDS: cefTRIAXone SOD 1 GM in D5W MINI-BAG PLUS 50 ML IV SCH (20:40)
[2020-03-31] VITALS: BP 120/73
[2020-03-31] MEDS: NS 1,000 ML IV SCH ×2 (03:42→04:30)
[2020-03-31 04:00] VITALS: BP 121/77
[2020-03-31 05:08] LABS: HEMATOCRIT 46.5 % (36.0-47.0); HEMOGLOBIN 15.5 g/dl (12.0-15.5); MEAN CORPUSCULAR HEMOGLOBIN 33.2 pg (27.0-33.0); MEAN CORPUSCULAR HGB CONC 33.3 g/dl (32.0-36.5); MEAN CORPUSCULAR VOLUME 99.6 fl (80.0-96.0); PLATELET COUNT, AUTOMATED 239 10^3/uL (150-450); RED BLOOD COUNT 4.67 10^6/uL (4.00-5.40); WHITE BLOOD COUNT 10.8 10^3/uL (4.0-10.0)
[2020-03-31 05:31] LABS: ALBUMIN 2.2 GM/DL (3.2-5.2); ALT/SGPT 32 U/L (12-78); BILIRUBIN,TOTAL 0.4 MG/DL (0.2-1.0); BLOOD UREA NITROGEN 17 MG/DL (7-18); CALCIUM LEVEL 8.7 MG/DL (8.5-10.1); CARBON DIOXIDE LEVEL 25 MEQ/L (21-32); CHLORIDE LEVEL 112 MEQ/L (98-107); CREATININE FOR GFR 0.41 MG/DL (0.55-1.30); GLOMERULAR FILTRATION RATE > 60.0 (>60); GLUCOSE, FASTING 103 MG/DL (70-100); POTASSIUM SERUM 3.1 MEQ/L (3.5-5.1); SODIUM LEVEL 144 MEQ/L (136-145); TOTAL PROTEIN 6.4 GM/DL (6.4-8.2)
[2020-03-31] MEDS: metroNIDAZOLE 500 MG in IV 1 EA IV SCH ×3 (06:08→23:11)
[2020-03-31] MEDS: IPRATROPIUM 0.5MG/ALBUTEROL 2.5MG INH SOL UD 3ML (DUONEB) NEB SCH ×3 (07:21→15:15)
[2020-03-31 08:00] VITALS: BP 125/67
[2020-03-31] MEDS: CLINDAMYCIN TOP 1% SOLN 60 ML BTL TOP SCH ×2 (08:11→20:12)
[2020-03-31] MEDS: PANTOPRAZOLE 40MG VIAL (C9113 PER 1) IV SCH (08:11)
[2020-03-31] MEDS: DOXYCYCLINE HYCLATE 100 MG in D5W MINI-BAG PLUS 100 ML IV SCH (08:11)
[2020-03-31] MEDS: POLYVINYL ALCOHOL OPHTH SOLN 15 ML(LIQUITEARS) OS SCH ×3 (08:12→20:11)
[2020-03-31] MEDS: levETIRAcetam INJection 500 MG in D5W MINI-BAG PLUS 100 ML IV SCH ×2 (10:32→20:48)
--- NOTE | 2020-03-31 11:59 | IPNPDOC ---
Date Seen The patient was seen on 03/31/20. Progress Note SUBJECTIVE: 325 out of G tube with IS since midnight. Per surgery, can restart Jevity TF today and advance as tolerated when appropriate. Will check CXR first today due to incr RR, HR. Also will need nutrition to give specific recommendations on advancement of TF. No s/s of pain. OBJECTIVE PHYSICAL EXAMINATION: VS: Please see below CONSTITUTIONAL: Tachypneic, noncommunicative, does not follow commands-baseline EYES: roving eyes, PERRLA, left eye sclera slightly pink, no conjunctivitis HENT, MOUTH: Normocephalic, atraumatic, moist mucous membranes. NECK: SUPPLE, no JVD, no lymphadenopathy, no carotid bruit CV: NSR, S1S2 normal, no murmurs/rubs/gallops RESPIRATORY: Improved rhonchi bilaterally , crackles in lung bases, no rales/wheezes GI: Distended abd but less tympanic, BS hypoactive in 4 quadrants, no organomegaly, G tube, J tube in place , no signs of pain on palpation of abd. : Todd cath MUSCULOSKELETAL:ROM not tested. No cyanosis, clubbing, swelling, joint deform ity, extremity edema ExT: pulses + in all ext, contracture of b/l hands. INTEGUMENTARY: Intact, no erythema. Dry skin on face, underarms, behind ears, scaling NEUROLOGIC: Cranial Nerves II-XII unable to be tested, no focal deficits LABORATORY DATA: Please see below MICROBIOLOGY: Resp panel: neg Blood cultures x2 sets: NG at 48 hrs Sputum GS: MANY WBCS MANY GRAM POSITIVE RODS MANY GRAM POSITIVE COCCI IN PAIRS, CHAINS AND CLUSTERS MANY GRAM NEGATIVE COCCI IN PAIRS, CHAINS AND CLUSTERS Sputum Cx: Pending UA neg IMAGING: Repeat CXR: Pending CT chest: 1. There is prominence of the pulmonary vascular markings. These findings may represent congestive heart failure, please correlate clinically. 2. There is mild consolidation of both lung bases. This is new since prior study. This could represent pneumonia in the appropriate clinical setting. 3. There is a large fluid containing hiatal hernia. 4. There is a moderate right pleural effusion. 5. The stomach is moderately distended. Please refer to contemporaneous CT report of the abdomen/pelvis for additional details. 6. There is moderate/severe thoracic kyphosis which may contribute to patient's respiratory distress, please correlate clinically. CT abd/pelvis: 1. The duodenum and proximal jejunum are moderately distended with fluid and air. There is jejunal wall thickening at the tip of the gastrostomy tube. There is pneumatosis of the jejunal loop that contains the gastrostomy tube. There is a jejunal transition point in the left upper quadrant at the tip of the gastrostomy tube, beyond which there are several collapsed small bowel loops. There is a moderate amount of fluid surrounding these small bowel loops. 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 Surgical consultation is recommended. 2. The colon is moderately distended with air, likely an ileus. There is irregular wall thickening of the splenic flexure and sigmoid colon concerning for inflammatory/infectious colitis or ischemia. 3. There are multiple enlarged mesenteric lymph nodes. Echocardiogram: Normal sinus rhythm with right bundle branch block. Technically difficult study, but some diagnostic useful information was still obtained. M-mode and two-dimensional echocardiography was attempted with pulsed, continuous wave, color flow, and tissue Doppler studies. Normal left ventricular size with borderline left ventricular hypertrophy and hyperkinetic wall motion. Mildly dilated left atrium with grade 1 left ventricular (LV) diastolic dysfunction, but currently normal estimated mean left atrial pressure. Right heart chambers appeared to be normal in size with hyperkinetic wall m otion, but Doppler sign of perhaps moderate pulmonary hypertension. Unable to visualize her inferior vena cava (IVC) to further estimate central venous pressure. Normal aortic dimensions. Normal appearing and functioning valvular structures. No apparent intracardiac mass that we could visualize. Miniscule posterior pericardial effusion. ASSESSMENT: 39-year-old female with past nuchal history of spastic cerebral palsy with quadriparesis, profound MR, seizure disorder, chronic hypothymia, history of recurrent aspiration pneumonia, history of constrictive pericarditis admitted with diagnosis of SBO vs. ileus, bilateral community acquired with possible aspiration PNA, sepsis, acute on chronic CHF exacerbation, dehydration. PLAN: # Acute hypoxic respiratory failure multifactorial to bilateral community acquired PNA, possible aspiration PNA, CHF with moderate right side pleural effusion, moderate/severe thoracic kyphosis. -Please see treatment plans below for individual issues # Bilateral community acquired PNA, possible aspiration PNA with sepsis. Hx of recurrent aspiration PNA -WBC 10.8, incr HR to 120, RR 22-24, 96% on RA today- first day being weaned off O2 -Requiring intermittent suctioning by respiratory, nursing -Blood cultures NG, sputum culture pending- please see above -Day 3 ceftriaxone, doxycycline, metronidazole, duonebs ATC, albuterol PRN -Aspiration precautions -Intermittent suctioning PRN # Diastolic CHF exacerbation with right side pleural effusion. Hx of restrictive pericarditis, pericardial effusion and left side pleural effusion requiring drainage. -CT chest above but when reviewed the CT with thoracic surgery(Dr. Sims) he states pleural effusion is trivial. No overt signs of fluid overload on physical exam, no JVD -BNP elevated at 964, last in system was <200. Will recheck today due to being on gentle IVFs. -Last echo 07/2015: LV diastolic dysfunction, EF 65% -Echo this admission: above -On gentle IVFs as she is not getting tube feeds; however, monitor for s/s of fluid overload. -Can intermittently diurese PRN -Holding all home meds. # Abdominal distention likely 2/2 to ileus 2/2 to PNA. Per surgery, perforation or pancreatitis is not suspected at this time. -Lipase 3578, repeating level today -LA wnl, small BM this admission. -Distended abd- slightly improvement, no s/s of pain -J tube to gravity, G tube intermittent suction, NPO. If CXR not worsened, plan is to restart TF per nutrition. -C/w IVF hydration -F/u daily labs -Surgery following # Dehydration 2/2 to acute issues above- improved # Hx of spastic cerebral palsy with quadriparesis, profound MR -[facility] staff at bedside, patient at baseline: noncommunicative -Resume home meds when able. #Seizure disorder -No seizure activity noted -C/w keppra BID IV #Skin infection of face, underarms, behind ears -C/w home clindamycin gel. #Chronic hypothermia -Temp wnl # GI px. -IV PPI #DVT px. - Teds/scds. Holding off on AC due to patient may needing surgery in next 12-24 hrs. If not, then restart AC. DISPOSITION: Admitted under inpatient status. No surgical needs at this time. Plan is hopefully discharge back to [facility] when medically improved. VS, I&O, 24H, Fishbone Vital Signs/I&O Vital Signs Date Time Temp Pulse Resp B/P (MAP) Pulse Ox O2 Delivery O2 Flow Rate FiO2 03/31/20 08:00 97.7 120 26 125/67 (86) 96 Room Air 03/30/20 16:00 2.0 03/29/20 22:00 50 l I&O- Last 24 Hours up to 6 AM 03/31/20 06:00 Intake Total 1020 ml Output Total 1060 ml Balance -40 ml Laboratory Data 24H LABS Laboratory Tests 2 03/31/20 04:51: Nucleated Red Blood Cells % (auto) 0.2H, Anion Gap 7L, Glomerular Filtration Rate > 60.0, Calcium Level 8.7, Total Bilirubin 0.4, Aspartate Amino Transf (AST/SGOT) 27, Alanine Aminotransferase (ALT/SGPT) 32, Alkaline Phosphatase 157H, Total Protein 6.4, Albumin 2.2L, Albumin/Globulin Ratio 0.5L CBC/BMP Laboratory Tests 03/31/20 04:51 Microbiology Microbiology 03/29/20 Gram Stain - Final, Resulted 03/29/20 Sputum Culture, Resulted Pending 03/29/20 Blood Culture - Preliminary, Resulted No Growth after 48 hours. All Specime... 03/29/20 Blood Culture - Preliminary, Resulted No Growth after 48 hours. All Specime... 03/29/20 Respiratory Virus Panel (PCR) (SUSAN) - Final, Complete Current Medications Current Medications Medications (Trade) Dose Ordered Sig/Fish Route PRN Reason Start Time Stop Time Status Last Admin Dose Admin Albuterol Sulfate (Proventil Neb) 2.5 mg Q2HP PRN NEB SOB/WHEEZING 03/29/20 14:00 Albuterol/ Ipratropium (Combivent Respimat 100-20mcg) 4 puff NOW STAT INH 03/29/20 08:27 03/29/20 08:29 DC 03/29/20 08:33 Albuterol/ Ipratropium (Duoneb (Ipr 0.5mg/Alb 2.5mg)) 3 ml RQID NEB 03/29/20 16:00 03/31/20 07:21 Artificial Tears (Akwa Tears) 2 drop TID OS 03/30/20 16:00 03/31/20 08:12 Aztreonam 2 gm/ Dextrose 50 ml @ 50 mls/hr Q8H IV 03/29/20 14:30 03/29/20 15:07 DC Ceftriaxone Sodium 1 gm/ Dextrose 50 ml @ 100 mls/hr Q24H IV 03/29/20 18:00 03/29/20 18:42 DC Ceftriaxone Sodium 1 gm/ Dextrose 50 ml @ 100 mls/hr Q24H IV 03/29/20 20:00 03/30/20 20:40 Clindamycin Phosphate (Cleocin 1% Top) 1 dose BID TOP 03/29/20 21:00 03/31/20 08:11 Doxycycline Hyclate 100 mg/ Dextrose 100 ml @ 100 mls/hr Q12H IV 03/29/20 16:00 03/29/20 18:41 DC Doxycycline Hyclate 100 mg/ Dextrose 100 ml @ 100 mls/hr Q12H IV 03/29/20 20:00 03/31/20 08:11 Home Med (Med Rec Complete!) ASDIRECTED XX 03/29/20 08:45 03/29/20 08:41 DC Levetiracetam 500 mg/Dextrose 105 ml @ 420 mls/hr Q12H IV 03/29/20 16:00 03/29/20 15:50 DC Levetiracetam 500 mg/Dextrose 105 ml @ 420 mls/hr Q12H IV 03/29/20 21:00 03/31/20 10:32 Levofloxacin 750 mg/IV Miscellaneous Supplies 150 ml @ 100 mls/hr Q24H IV 03/30/20 09:00 03/29/20 14:47 DC Metronidazole 500 mg/IV Miscellaneous Supplies 100 ml @ 100 mls/hr Q8H IV 03/29/20 15:00 03/31/20 06:08 Pantoprazole Sodium (Protonix) 40 mg DAILY IV 03/30/20 09:00 03/31/20 08:11 Scopolamine (Scopolamine) 1 mg Q72H TOP 03/29/20 23:00 03/29/20 23:00 Sodium Chloride 1,000 ml @ 80 mls/hr [id number] IV 03/29/20 15:00 03/31/20 03:42 Allergies Coded Allergies: Penicillins (Verified Allergy, Intermediate, rash, 03/29/20) PT HAS TOLERATE MX CEPHALOSPORINS IN THE PAST WITHOUT ISSUE clarithromycin (Verified Allergy, Intermediate, rash , 03/29/20) increase tregrtol level clavulanic acid (Verified Allergy, Intermediate, rash, 03/29/20) corticotropin (Verified Allergy, Intermediate, rash, 03/29/20) lamotrigine (Verified Allergy, Intermediate, blisters/rash, 03/29/20) Influenza Virus Vaccines (Verified Allergy, Unknown, 03/29/20) amoxicillin (Verified Allergy, Unknown, 03/29/20) grapefruit (Verified Allergy, Unknown, 03/29/20) tetanus and diphtheria toxoids (Verified Allergy, Unknown, 03/29/20) Uncoded Allergies: adrenocorticotrophic hormone (Allergy, Unknown, 03/29/20) My Gao MD Mar 31, 2020 11:59
[2020-03-31 12:00] VITALS: BP 123/69
[2020-03-31 12:46] LABS: LIPASE 1406 U/L (73-393); NT-PRO BNP 414 PG/ML (<125)
[2020-03-31 16:00] VITALS: BP 132/89
[2020-03-31] MEDS ORDERED: LEVALBUTEROL 1.25 MG/0.5 ML CONCENTRATE NEB NEB PRN (17:30)
[2020-03-31] MEDS ORDERED: VANCOMYCIN HCL 500 MG in D5W MINI-BAG PLUS 100 ML IV ONE (18:45)
[2020-03-31] MEDS: LEVALBUTEROL 1.25 MG/0.5 ML CONCENTRATE NEB NEB SCH (19:39)
[2020-03-31 20:00] VITALS: BP 116/68
[2020-03-31] MEDS: cefTRIAXone SOD 1 GM in D5W MINI-BAG PLUS 50 ML IV SCH (20:10)
[2020-03-31] MEDS ORDERED: VANCOMYCIN HCL 1,000 MG, VIAL MATE ADAPTER 1 EACH in D5W 250 ML IV SCH (22:00)
[2020-04-01] VITALS: BP 111/66
[2020-04-01 04:00] VITALS: BP 123/76
[2020-04-01 05:42] LABS: HEMATOCRIT 44.9 % (36.0-47.0); HEMOGLOBIN 14.7 g/dl (12.0-15.5); MEAN CORPUSCULAR HEMOGLOBIN 33.3 pg (27.0-33.0); MEAN CORPUSCULAR HGB CONC 32.7 g/dl (32.0-36.5); MEAN CORPUSCULAR VOLUME 101.8 fl (80.0-96.0); PLATELET COUNT, AUTOMATED 188 10^3/uL (150-450); RED BLOOD COUNT 4.41 10^6/uL (4.00-5.40); WHITE BLOOD COUNT 9.6 10^3/uL (4.0-10.0)
[2020-04-01 06:22] LABS: ALBUMIN 2.2 GM/DL (3.2-5.2); ALT/SGPT 27 U/L (12-78); BILIRUBIN,TOTAL 0.6 MG/DL (0.2-1.0); BLOOD UREA NITROGEN 13 MG/DL (7-18); CALCIUM LEVEL 8.4 MG/DL (8.5-10.1); CARBON DIOXIDE LEVEL 24 MEQ/L (21-32); CHLORIDE LEVEL 112 MEQ/L (98-107); CREATININE FOR GFR 0.44 MG/DL (0.55-1.30); GLOMERULAR FILTRATION RATE > 60.0 (>60); GLUCOSE, FASTING 101 MG/DL (70-100); POTASSIUM SERUM 3.3 MEQ/L (3.5-5.1); SODIUM LEVEL 141 MEQ/L (136-145); TOTAL PROTEIN 6.4 GM/DL (6.4-8.2)
[2020-04-01] MEDS: metroNIDAZOLE 500 MG in IV 1 EA IV SCH (06:30)
[2020-04-01] MEDS: LEVALBUTEROL 1.25 MG/0.5 ML CONCENTRATE NEB NEB SCH ×4 (07:20→19:35)
[2020-04-01] MEDS ORDERED: IMIPENEM/CILASTATIN 500 MG in D5W MINI-BAG PLUS 100 ML IV SCH (07:45)
[2020-04-01 08:00] VITALS: BP 124/78
[2020-04-01] MEDS ORDERED: POTASSIUM CHLORIDE 10 MEQ SR TABLET PO ONE (08:00)
[2020-04-01] MEDS ORDERED: POTASSIUM CHLORIDE 10% LIQ 20 MEQ/15 ML UDC JT ONE (08:15)
[2020-04-01] MEDS ORDERED: FAMOTIDINE 20 MG TAB PO SCH (09:00)
[2020-04-01] MEDS ORDERED: LACOSAMIDE 50 MG TAB (VIMPAT) GT SCH (09:00)
[2020-04-01] MEDS: NYSTATIN 100,000 UNITS/GM TOPICAL PWD 15 GM TOP SCH ×2 (09:00→20:23)
[2020-04-01] MEDS: CLINDAMYCIN TOP 1% SOLN 60 ML BTL TOP SCH ×2 (09:29→20:22)
[2020-04-01] MEDS: POLYVINYL ALCOHOL OPHTH SOLN 15 ML(LIQUITEARS) OS SCH ×3 (09:29→20:22)
[2020-04-01] MEDS: PANTOPRAZOLE 40MG VIAL (C9113 PER 1) IV SCH (09:29)
[2020-04-01] MEDS: levETIRAcetam INJection 500 MG in D5W MINI-BAG PLUS 100 ML IV SCH ×2 (09:30→20:22)
[2020-04-01] MEDS: IMIPENEM/CILASTATIN 500 MG in D5W MINI-BAG PLUS 100 ML IV SCH ×3 (11:39→23:49)
--- NOTE | 2020-04-01 11:41 | IPNPDOC ---
Date Seen The patient was seen on 04/01/20. Progress Note SUBJECTIVE: Tolerating tube feeds, U/O appropriate. Restarting home medications. Official reading of CXR 03/31/20 STILL pending, sensitivities for sputum culture received. Abx d/rodney, Imipenem started. Persistent tachycardia; however, no s/s of pain. OBJECTIVE PHYSICAL EXAMINATION: VS: Please see below CONSTITUTIONAL: Noncommunicative, does not follow commands-baseline, appears comfortable EYES: roving eyes, PERRLA, left eye sclera slightly pink, no conjunctivitis HENT, MOUTH: Normocephalic, atraumatic, moist mucous membranes. NECK: SUPPLE, no JVD, no lymphadenopathy, no carotid bruit CV: NSR, S1S2 normal, no murmurs/rubs/gallops RESPIRATORY: rhonchi bilaterally , crackles in lung bases, no rales/wheezes GI: Distended abd but less tympanic, BS hypoactive in 4 quadrants, no or ganomegaly, G tube, J tube in place , no signs of pain on palpation of abd. : Todd cath MUSCULOSKELETAL:ROM not tested. No cyanosis, clubbing, swelling, joint deformity, extremity edema ExT: pulses + in all ext, contracture of b/l hands. INTEGUMENTARY: Intact, no erythema. Dry skin on face, underarms, behind ears, scaling NEUROLOGIC: Cranial Nerves II-XII unable to be tested, no focal deficits LABORATORY DATA: Please see below MICROBIOLOGY: Resp panel: neg Blood cultures x2 sets: NG at 48 hrs Sputum Cx: pseudomonas, proteus mirabilis- sensitivities done UA neg IMAGING: Repeat CXR: Pending CT chest: 1. There is prominence of the pulmonary vascular markings. These findings may represent congestive heart failure, please correlate clinically. 2. There is mild consolidation of both lung bases. This is new since prior study. This could represent pneumonia in the appropriate clinical setting. 3. There is a large fluid containing hiatal hernia. 4. There is a moderate right pleural effusion. 5. The stomach is moderately distended. Please refer to contemporaneous CT report of the abdomen/pelvis for additional details. 6. There is moderate/severe thoracic kyphosis which may contribute to patient's respiratory distress, please correlate clinically. CT abd/pelvis: 1. The duodenum and proximal jejunum are moderately distended with fluid and air. There is jejunal wall thickening at the tip of the gastrostomy tube. There is pneumatosis of the jejunal loop that contains the gastrostomy tube. There is a jejunal transition point in the left upper quadrant at the tip of the gastrostomy tube, beyond which there are several collapsed small bowel loops. There is a moderate amount of fluid surrounding these small bowel loops. 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 Surgical consultation is recommended. 2. The colon is moderately distended with air, likely an ileus. There is irregular wall thickening of the splenic flexure and sigmoid colon concerning for inflammatory/infectious colitis or ischemia. 3. There are multiple enlarged mesenteric lymph nodes. Echocardiogram: Normal sinus rhythm with right bundle branch block. Technically difficult study, but some diagnostic useful information was still obtained. M-mode and two-dimensional echocardiography was attempted with pulsed, continuous wave, color flow, and tissue Doppler studies. Normal left ventricular size with borderline left ventricular hypertrophy and hyperkinetic wall motion. Mildly dilated left atrium with grade 1 left ventricular (LV) diastolic dysfunction, but currently normal estimated mean left atrial pressure. Right heart chambers appeared to be normal in size with hyperkinetic wall motion, but Doppler sign of perhaps moderate pulmonary hypertension. Unable to visualize her inferior vena cava (IVC) to further estimate central venous pressure. Normal aortic dimensions. Normal appearing and functioning valvular structures. No apparent intracardiac mass that we could visualize. Miniscule posterior pericardial effusion. ASSESSMENT: 39-year-old female with past nuchal history of spastic cerebral palsy with quadriparesis, profound MR, seizure disorder, chronic hypothymia, history of recurrent aspiration pneumonia, history of constrictive pericarditis admitted with diagnosis of SBO vs. ileus, bilateral community acquired with possible aspiration PNA, sepsis, acute on chronic CHF exacerbation, dehydration. PLAN: # Acute hypoxic respiratory failure multifactorial to bilateral community acquired PNA, possible aspiration PNA, CHF with moderate right side pleural effusion, moderate/severe thoracic kyphosis. -Improving -Please see treatment plans below for individual issues # Bilateral Pseudomonas Community Acquired PNA, possible aspiration PNA with sepsis. Hx of recurrent aspiration PNA -WBC 9.6, incr HR to 96-110, RR 18-24, 95% on RA today -Requiring intermittent suctioning by respiratory, nursing PRN -Blood cultures NG, sputum culture: pseudomonas, proteus -D/rodney ceftriaxone, doxycycline, metronidazole. Started Imipenem/cilastin based off sensitivities. -C/w levalbuterol ATC, PRN -Aspiration precautions # Diastolic CHF exacerbation with right side pleural effusion. Hx of restrictive pericarditis, pericardial effusion and left side pleural effusion requiring drainage. -CT chest above but when reviewed the CT with thoracic surgery(Dr. Sims) he states pleural effusion is trivial. No overt signs of fluid overload on physical exam, no JVD -BNP elevated at 964 on admission, improved -Last echo 07/2015: LV diastolic dysfunction, EF 65% -Echo this admission: above -Can intermittently diurese PRN -Restarting home medications # Abdominal distention likely 2/2 to ileus 2/2 to PNA. Per surgery, perforation or pancreatitis is not suspected at this time. -Lipase 3578 on admission- improving -LA wnl, small BM this admission. -Distended abd- slightly improvement, no s/s of pain -Tolerating TF well, no residuals -H20 with tube feeds -F/u daily labs -Surgery following # Hx of spastic cerebral palsy with quadriparesis, profound MR -[facility] staff at bedside, patient at baseline: noncommunicative -Resume home meds #Seizure disorder -No seizure activity noted -C/w keppra BID IV #Skin infection of face, underarms, behind ears -C/w home clindamycin gel. #Chronic hypothermia -Temp wnl # GI px. -famotidine BID #DVT px. - Teds/scds, lovenox DISPOSITION: Admitted under inpatient status. No surgical needs at this time. Plan is hopefully discharge back to [facility] when medically improved. VS, I&O, 24H, Fishbone Vital Signs/I&O Vital Signs Date Time Temp Pulse Resp B/P (MAP) Pulse Ox O2 Delivery O2 Flow Rate FiO2 04/01/20 08:00 97.8 115 24 124/78 (93) 95 Room Air 03/30/20 16:00 2.0 03/29/20 22:00 50 I&O- Last 24 Hours up to 6 AM 04/01/20 06:00 Intake Total 2343 ml Output Total 1450 ml Balance 893 ml Laboratory Data 24H LABS Laboratory Tests 2 03/31/20 18:30: Methicillin-Resist S.aureus DNA PCR NOT DETECTED 04/01/20 05:28: Nucleated Red Blood Cells % (auto) 0.0, Anion Gap 5L, Glomerular Filtration Rate > 60.0, Calcium Level 8.4L, Total Bilirubin 0.6, Aspartate Amino Transf (AST/SGOT) 28, Alanine Aminotransferase (ALT/SGPT) 27, Alkaline Phosphatase 162H, Total Protein 6.4, Albumin 2.2L, Albumin/Globulin Ratio 0.5L CBC/BMP Laboratory Tests 04/01/20 05:28 Microbiology Microbiology 03/29/20 Gram Stain - Final, Complete 03/29/20 Sputum Culture - Final, Complete Pseudomonas Aeruginosa Proteus Mirabilis 03/29/20 Blood Culture - Preliminary, Resulted No Growth after 72 hours. All specime... 03/29/20 Blood Culture - Preliminary, Resulted No Growth after 72 hours. All specime... 03/29/20 Respiratory Virus Panel (PCR) (SUSAN) - Final, Complete Current Medications Current Medications Medications (Trade) Dose Ordered Sig/Fish Route PRN Reason Start Time Stop Time Status Last Admin Dose Admin Albuterol Sulfate (Proventil Neb) 2.5 mg Q2HP PRN NEB SOB/WHEEZING 03/29/20 14:00 03/31/20 17:33 DC Albuterol/ Ipratropium (Combivent Respimat 100-20mcg) 4 puff NOW STAT INH 03/29/20 08:27 03/29/20 08:29 DC 03/29/20 08:33 Albuterol/ Ipratropium (Duoneb (Ipr 0.5mg/Alb 2.5mg)) 3 ml RQID NEB 03/29/20 16:00 03/31/20 17:33 DC 03/31/20 15:15 Artificial Tears (Akwa Tears) 2 drop TID OS 03/30/20 16:00 04/01/20 09:29 Aztreonam 2 gm/ Dextrose 50 ml @ 50 mls/hr Q8H IV 03/29/20 14:30 03/29/20 15:07 DC Ceftriaxone Sodium 1 gm/ Dextrose 50 ml @ 100 mls/hr Q24H IV 03/29/20 18:00 03/29/20 18:42 DC Ceftriaxone Sodium 1 gm/ Dextrose 50 ml @ 100 mls/hr Q24H IV 03/29/20 20:00 04/01/20 07:34 DC 03/31/20 20:10 Clindamycin Phosphate (Cleocin 1% Top) 1 dose BID TOP 03/29/20 21:00 04/01/20 09:29 Doxycycline Hyclate 100 mg/ Dextrose 100 ml @ 100 mls/hr Q12H IV 03/29/20 16:00 03/29/20 18:41 DC Doxycycline Hyclate 100 mg/ Dextrose 100 ml @ 100 mls/hr Q12H IV 03/29/20 20:00 03/31/20 17:44 DC 03/31/20 08:11 Home Med (Med Rec Complete!) ASDIRECTED XX 03/29/20 08:45 03/29/20 08:41 DC Imipenem/ Cilastatin Sodium 500 mg/Dextrose 100 ml @ 100 mls/hr Q6H IV 04/01/20 07:45 UNV Levalbuterol HCl (Xopenex Neb) 1.25 mg Q2HP PRN NEB SHORTNESS OF BREATH 03/31/20 17:30 Levalbuterol HCl (Xopenex Neb) 1.25 mg QID NEB 03/31/20 21:00 04/01/20 07:20 Levetiracetam 500 mg/Dextrose 105 ml @ 420 mls/hr Q12H IV 03/29/20 16:00 03/29/20 15:50 DC Levetiracetam 500 mg/Dextrose 105 ml @ 420 mls/hr Q12H IV 03/29/20 21:00 04/01/20 09:30 Levofloxacin 750 mg/IV Miscellaneous Supplies 150 ml @ 100 mls/hr Q24H IV 03/30/20 09:00 03/29/20 14:47 DC Metronidazole 500 mg/IV Miscellaneous Supplies 100 ml @ 100 mls/hr Q8H IV 03/29/20 15:00 04/01/20 07:34 DC 04/01/20 06:30 Pantoprazole Sodium (Protonix) 40 mg DAILY IV 03/30/20 09:00 04/01/20 09:29 Scopolamine (Scopolamine) 1 mg Q72H TOP 03/29/20 23:00 03/29/20 23:00 Sodium Chloride 1,000 ml @ 80 mls/hr [id number] IV 03/29/20 15:00 03/31/20 16:51 DC 03/31/20 03:42 Vancomycin HCl 1000 mg/IV Miscellaneous Supplies 1 each/ Dextrose 270 ml @ 270 mls/hr Q18H IV 03/31/20 22:00 04/01/20 10:52 DC 03/31/20 21:46 Allergies Coded Allergies: Penicillins (Verified Allergy, Intermediate, rash, 03/29/20) PT HAS TOLERATE MX CEPHALOSPORINS IN THE PAST WITHOUT ISSUE clarithromycin (Verified Allergy, Intermediate, rash , 03/29/20) increase tregrtol level clavulanic acid (Verified Allergy, Intermediate, rash, 03/29/20) corticotropin (Verified Allergy, Intermediate, rash, 03/29/20) lamotrigine (Verified Allergy, Intermediate, blisters/rash, 03/29/20) Influenza Virus Vaccines (Verified Allergy, Unknown, 03/29/20) amoxicillin (Verified Allergy, Unknown, 03/29/20) grapefruit (Verified Allergy, Unknown, 03/29/20) tetanus and diphtheria toxoids (Verified Allergy, Unknown, 03/29/20) Uncoded Allergies: adrenocorticotrophic hormone (Allergy, Unknown, 03/29/20) My Gao MD Apr 01, 2020 11:41
[2020-04-01] MEDS ORDERED: DOCUSATE SOD LIQ 100MG/10ML UDC GT PRN (11:45)
[2020-04-01] MEDS ORDERED: guaiFENesin SYRUP 200 MG/10 ML UDC GT PRN (11:45)
[2020-04-01] MEDS ORDERED: BISACODYL 10 MG SUPP PR PRN ×2 (11:45→12:45)
[2020-04-01 16:00] VITALS: BP 117/70
[2020-04-01] MEDS ORDERED: CYPROHEPTADINE 4 MG TAB GT SCH (16:00)
[2020-04-01] MEDS: NS 1,000 ML IV SCH (16:59)
--- NOTE | 2020-04-01 18:56 | REPVR ---
PROCEDURE INFORMATION: Exam: CT Abdomen And Pelvis Without Contrast Exam date and time: 04/01/2020 5:56 PM Age: 39 years old Clinical indication: Abdominal pain; Generalized; Additional info: Sbo vs. Ileus TECHNIQUE: Imaging protocol: Computed tomography of the abdomen and pelvis without contrast. Radiation optimization: All CT scans at this facility use at least one of these dose optimization techniques: automated exposure control; mA and/or kV adjustment per patient size (includes targeted exams where dose is matched to clinical indication); or iterative reconstruction. COMPARISON: CT ABD/PEL W/IV CONTRAST ONLY 03/29/2020 10:28 AM FINDINGS: Tubes, catheters and devices: Gastrostomy tube. Pleural space: Small left pleural effusion. Liver: Normal. No mass. Gallbladder and bile ducts: Normal. No calcified stones. No ductal dilation. Pancreas: Normal. No ductal dilation. Spleen: Normal. No splenomegaly. Adrenals: Normal. No mass. Kidneys and ureters: 8 mm nonobstructing calculus at the lower pole of the left kidney. Bilateral kidneys are small in caliber/atrophic. Stomach and bowel: Colon is air-filled and dilated. Small bowel is unremarkable. Appendix: No evidence of appendicitis. Intraperitoneal space: Small amount of fluid in the right pelvis. Vasculature: Unremarkable. No abdominal aortic aneurysm. Lymph nodes: Unremarkable. No enlarged lymph nodes. Urinary bladder: Todd's catheter. Reproductive: Unremarkable as visualized. Bones/joints: There is superior dislocation of the bilateral femoral heads. Diffuse demineralization of the bones. Soft tissues: Diffuse anasarca. Other findings: Motion artifact degrades the images. IMPRESSION: 1. Diffuse anasarca. 2. Air-filled and dilated colon. Findings likely represent ileus. 3. Small amount of fluid in the pelvis. Electronically signed by: Chico Payne On 04/01/2020 18:56:22 PM
[2020-04-01 20:00] VITALS: BP 115/71
[2020-04-01] MEDS ORDERED: CLORAZEPATE 3.75 MG TAB GT SCH (21:00)
[2020-04-01] MEDS ORDERED: MIRALAX *UNIT DOSE* 17GM PACKET GT SCH (21:00)
[2020-04-01] MEDS ORDERED: CETIRIZINE (ZyrTEC) 10 MG TAB GT SCH (21:00)
[2020-04-01] MEDS: SCOPOLAMINE 1MG TRANSDERMAL PATCH TOP SCH (23:48)
[2020-04-02] VITALS: BP 129/89
[2020-04-02 04:00] VITALS: BP 122/78
[2020-04-02] MEDS: NS 1,000 ML IV SCH (04:11)
[2020-04-02] MEDS: IMIPENEM/CILASTATIN 500 MG in D5W MINI-BAG PLUS 100 ML IV SCH ×4 (05:24→23:20)
[2020-04-02 06:04] LABS: HEMATOCRIT 39.8 % (36.0-47.0); HEMOGLOBIN 12.9 g/dl (12.0-15.5); MEAN CORPUSCULAR HEMOGLOBIN 32.7 pg (27.0-33.0); MEAN CORPUSCULAR HGB CONC 32.4 g/dl (32.0-36.5); MEAN CORPUSCULAR VOLUME 100.8 fl (80.0-96.0); PLATELET COUNT, AUTOMATED 236 10^3/uL (150-450); RED BLOOD COUNT 3.95 10^6/uL (4.00-5.40)
[2020-04-02 06:24] LABS: ALBUMIN 2.2 GM/DL (3.2-5.2); ALT/SGPT 24 U/L (12-78); BILIRUBIN,TOTAL 0.6 MG/DL (0.2-1.0); BLOOD UREA NITROGEN 10 MG/DL (7-18); CARBON DIOXIDE LEVEL 23 MEQ/L (21-32); CHLORIDE LEVEL 115 MEQ/L (98-107); CREATININE FOR GFR 0.36 MG/DL (0.55-1.30); GLOMERULAR FILTRATION RATE > 60.0 (>60); GLUCOSE, FASTING 74 MG/DL (70-100); NT-PRO BNP 602 PG/ML (<125); POTASSIUM SERUM 3.3 MEQ/L (3.5-5.1); SODIUM LEVEL 147 MEQ/L (136-145); TOTAL PROTEIN 5.3 GM/DL (6.4-8.2)
[2020-04-02] MEDS: LEVALBUTEROL 1.25 MG/0.5 ML CONCENTRATE NEB NEB SCH ×4 (07:07→19:44)
[2020-04-02 08:00] VITALS: BP 123/76
[2020-04-02] MEDS: KCL 10MEQ/100ML SWI (KRUN) 10 MEQ in IV 1 EA IV SCH ×4 (08:48→11:53)
[2020-04-02] MEDS: ENOXAPARIN 40MG/0.4ML SYRINGE (J1650 PER 10MG) SC SCH (08:48)
[2020-04-02] MEDS: levETIRAcetam INJection 500 MG in D5W MINI-BAG PLUS 100 ML IV SCH ×2 (08:48→20:17)
[2020-04-02] MEDS: PANTOPRAZOLE 40MG VIAL (C9113 PER 1) IV SCH (08:48)
[2020-04-02] MEDS: CLINDAMYCIN TOP 1% SOLN 60 ML BTL TOP SCH ×2 (08:49→20:17)
[2020-04-02] MEDS: NYSTATIN 100,000 UNITS/GM TOPICAL PWD 15 GM TOP SCH ×2 (08:49→20:17)
[2020-04-02] MEDS: POLYVINYL ALCOHOL OPHTH SOLN 15 ML(LIQUITEARS) OS SCH ×3 (08:49→20:17)
[2020-04-02 12:00] VITALS: BP 104/59
--- NOTE | 2020-04-02 14:08 | IPNPDOC ---
Date Seen The patient was seen on 04/02/20. Progress Note SUBJECTIVE: Stopped TF, U/O slightly improved. Increased IVFs. Discussed with surgery Tolerating tube feeds, U/O appropriate. Restarting home medications. Official reading of CXR 03/31/20 STILL pending, sensitivities for sputum culture received. Abx d/rodney, Imipenem started. Persistent tachycardia; however, no s/s of pain. OBJECTIVE PHYSICAL EXAMINATION: VS: Please see below CONSTITUTIONAL: Noncommunicative, does not follow commands-baseline, appears comfortable EYES: roving eyes, PERRLA, left eye sclera slightly pink, no conjunctivitis HENT, MOUTH: Normocephalic, atraumatic, moist mucous membranes. NECK: SUPPLE, no JVD, no lymphadenopathy, no carotid bruit CV: NSR, S1S2 normal, no murmurs/rubs/gallops RESPIRATORY: rhonchi bilaterally , crackles in lung bases, no rales/wheezes GI: Distended abd but less tympanic, BS hypoactive in 4 quadrants, no organomegaly, G tube, J tube in place , no signs of pain on palpation of abd. : Tdod cath MUSCULOSKELETAL:ROM not tested. No cyanosis, clubbing, swelling, joint deformity, extremity edema ExT: pulses + in all ext, contracture of b/l hands. INTEGUMENTARY: Intact, no erythema. Dry skin on face, underarms, behind ears, scaling NEUROLOGIC: Cranial Nerves II-XII unable to be tested, no focal deficits LABORATORY DATA: Please see below MICROBIOLOGY: Resp panel: neg Blood cultures x2 sets: NG at 48 hrs Sputum Cx: pseudomonas, proteus mirabilis- sensitivities done UA neg IMAGING: Repeat CT abd/pelvis: 1. Diffuse anasarca. 2. Air-filled and dilated colon. Findings likely represent ileus. 3. Small amount of fluid in the pelvis. Echocardiogram: Normal sinus rhythm with right bundle branch block. Technically difficult study, but some diagnostic useful information was still obtained. M-mode and two-dimensional echocardiography was attempted with pulsed, continuous wave, color flow, and tissue Doppler studies. Normal left ventricular size with borderline left ventricular hypertrophy and hyperkinetic wall motion. Mildly dilated left atrium with grade 1 left ventricular (LV) diastolic dysfunction, but currently normal estimated mean left atrial pressure. Right heart chambers appeared to be normal in size with hyperkinetic wall motion, but Doppler sign of perhaps moderate pulmonary hypertension. Unable to visualize her inferior vena cava (IVC) to further estimate central venous pressure. Normal aortic dimensions. Normal appearing and functioning valvular structures. No apparent intracardiac mass that we could visualize. Miniscule posterior pericardial effusion. ASSESSMENT: 39-year-old female with past nuchal history of spastic cerebral palsy with quadriparesis, profound MR, seizure disorder, chronic hypothymia, history of recurrent aspiration pneumonia, history of constrictive pericarditis admitted with diagnosis of SBO vs. ileus, bilateral community acquired with possible aspiration PNA, sepsis, acute on chronic CHF exacerbation, dehydration. PLAN: # Acute hypoxic respiratory failure multifactorial to bilateral community acquired PNA, possible aspiration PNA, CHF with moderate right side pleural effusion, moderate/severe thoracic kyphosis. -Improving -Please see treatment plans below for individual issues # Abdominal distention likely 2/2 to ileus 2/2 to PNA. -Per surgery, perforation or pancreatitis is not suspected at this time. -Stopped tube feeds 04/01/20 due to increased TF in the bag to gravity, no concern for aspiration of these tube feedings -Distended abd- slightly improvement, no s/s of pain but concern remains for continued ileus since admission with last BM 03/29/20 -Lipase 3578 on admission- improving -LA wnl -C/w IVFs at 125 cc/hr -F/u daily labs -Per Dr. Pham (pulmonology): high risk for surgery, may be complicated to extubate post operatively but risk will ultimately be up to HCP/POA to decide on whether or not she would want to take that risk. -Dr. Brock (surgery) following, f/u recommendations (surgery or no surgery?) # Bilateral Pseudomonas Community Acquired PNA. Hx of recurrent aspiration PNA -CXR showed worsening PNA, saturating well on RA -WBC wnl, RR and tachycardia -Requiring intermittent suctioning by respiratory, nursing PRN -Blood cultures NG, sputum culture: pseudomonas, proteus -C/w Imipenem/cilastin (Day 2) based off cx/sensitivities. -C/w levalbuterol ATC, PRN -Aspiration precautions -Discussed with Dr. Pham. # Diastolic CHF exacerbation with right side pleural effusion. Hx of restrictive pericarditis, pericardial effusion and left side pleural effusion requiring drainage. -CT chest above but when reviewed the CT with thoracic surgery(Dr. Sims) he states pleural effusion is trivial. No overt signs of fluid overload on physical exam, no JVD -BNP on admission 964, today 600 -Last echo 07/2015: LV diastolic dysfunction, EF 65% -Echo this admission: above -Can intermittently diurese PRN # Hypokalemia -3.3 this AM, s/p 40 mEq -F/u labs in AM # Hx of spastic cerebral palsy with quadriparesis, profound MR -[facility] staff at bedside, patient at baseline: noncommunicative -Resume home meds #Seizure disorder -No seizure activity noted -C/w keppra BID IV #Skin infection of face, underarms, behind ears -C/w home clindamycin gel. #Chronic hypothermia -Temp wnl # GI px. -famotidine BID #DVT px. - Teds/scds, lovenox DISPOSITION: Admitted under inpatient status. Surgery following closely. VS, I&O, 24H, Fishbone Vital Signs/I&O Vital Signs Date Time Temp Pulse Resp B/P (MAP) Pulse Ox O2 Delivery O2 Flow Rate FiO2 04/02/20 12:00 98.1 108 22 104/59 (74) 98 Room Air 03/30/20 16:00 2.0 03/29/20 22:00 50 I&O- Last 24 Hours up to 6 AM 04/02/20 06:00 Intake Total 820 ml Output Total 1375 ml Balance -555 ml Laboratory Data 24H LABS Laboratory Tests 2 04/01/20 17:47: Lactic Acid Level 0.7, HB-Hln-X-Type Natriuretic Peptide 660H 04/02/20 05:32: AM-Jdv-Z-Type Natriuretic Peptide 602H, Nucleated Red Blood Cells % (auto) 0.4H, Anion Gap 9, Glomerular Filtration Rate > 60.0, Calcium Level 8.0L, Total Bilirubin 0.6, Aspartate Amino Transf (AST/SGOT) 21, Alanine Aminotransferase (ALT/SGPT) 24, Alkaline Phosphatase 159H, Total Protein 5.3L, Albumin 2.2L, Albumin/Globulin Ratio 0.7L 04/02/20 08:55: Vancomycin Level Trough 6.5L CBC/BMP Laboratory Tests 04/02/20 05:32 Microbiology Microbiology 03/29/20 Gram Stain - Final, Complete 03/29/20 Sputum Culture - Final, Complete Pseudomonas Aeruginosa Proteus Mirabilis 03/29/20 Blood Culture - Preliminary, Resulted No Growth after 72 hours. All specime... 03/29/20 Blood Culture - Preliminary, Resulted No Growth after 72 hours. All specime... 03/29/20 Respiratory Virus Panel (PCR) (SUSAN) - Final, Complete Current Medications Current Medications Medications (Trade) Dose Ordered Sig/Fish Route PRN Reason Start Time Stop Time Status Last Admin Dose Admin Albuterol Sulfate (Proventil Neb) 2.5 mg Q2HP PRN NEB SOB/WHEEZING 03/29/20 14:00 03/31/20 17:33 DC Albuterol/ Ipratropium (Combivent Respimat 100-20mcg) 4 puff NOW STAT INH 03/29/20 08:27 03/29/20 08:29 DC 03/29/20 08:33 Albuterol/ Ipratropium (Duoneb (Ipr 0.5mg/Alb 2.5mg)) 3 ml RQID NEB 03/29/20 16:00 03/31/20 17:33 DC 03/31/20 15:15 Artificial Tears (Akwa Tears) 2 drop TID OS 03/30/20 16:00 04/02/20 08:49 Aztreonam 2 gm/ Dextrose 50 ml @ 50 mls/hr Q8H IV 03/29/20 14:30 03/29/20 15:07 DC Bisacodyl (Dulcolax Suppository) 10 mg ASDIRECTED PRN MS CONSTIPATION 04/01/20 11:45 Cancel Bisacodyl (Dulcolax Suppository) 10 mg DAILYPRN PRN MS CONSTIPATION 04/01/20 12:45 04/01/20 17:33 DC Ceftriaxone Sodium 1 gm/ Dextrose 50 ml @ 100 mls/hr Q24H IV 03/29/20 18:00 03/29/20 18:42 DC Ceftriaxone Sodium 1 gm/ Dextrose 50 ml @ 100 mls/hr Q24H IV 03/29/20 20:00 04/01/20 07:34 DC 03/31/20 20:10 Cetirizine HCl (ZyrTEC) 10 mg QHS GT 04/01/20 21:00 04/01/20 17:33 DC Clindamycin Phosphate (Cleocin 1% Top) 1 dose BID TOP 03/29/20 21:00 04/02/20 08:49 Clorazepate Dipotassium (Tranxene) 7.5 mg BID GT 04/01/20 21:00 04/01/20 17:33 DC Cyproheptadine HCl (Periactin) 8 mg TID GT 04/01/20 16:00 04/01/20 17:33 DC Docusate Sodium (Colace Liquid) 150 mg BIDP PRN GT CONSTIPATION 04/01/20 11:45 04/01/20 17:33 DC Doxycycline Hyclate 100 mg/ Dextrose 100 ml @ 100 mls/hr Q12H IV 03/29/20 16:00 03/29/20 18:41 DC Doxycycline Hyclate 100 mg/ Dextrose 100 ml @ 100 mls/hr Q12H IV 03/29/20 20:00 03/31/20 17:44 DC 03/31/20 08:11 Enoxaparin Sodium (Lovenox) 40 mg DAILY SC 04/02/20 09:00 04/02/20 08:48 Famotidine (Pepcid) 20 mg BID PO 04/01/20 09:00 04/01/20 17:33 DC 04/01/20 15:20 Guaifenesin (Robitussin) 10 ml Q4H PRN GT CHEST CONGESTION 04/01/20 11:45 04/01/20 17:33 DC Home Med (Med Rec Complete!) ASDIRECTED XX 03/29/20 08:45 03/29/20 08:41 DC Imipenem/ Cilastatin Sodium 500 mg/Dextrose 100 ml @ 100 mls/hr Q6H IV 04/01/20 07:45 Cancel Imipenem/ Cilastatin Sodium 500 mg/Dextrose 100 ml @ 100 mls/hr Q6H IV 04/01/20 12:00 04/02/20 11:53 Lacosamide (Vimpat) 50 mg DAILY GT 04/01/20 09:00 04/01/20 17:33 DC 04/01/20 15:20 Levalbuterol HCl (Xopenex Neb) 1.25 mg Q2HP PRN NEB SHORTNESS OF BREATH 03/31/20 17:30 04/01/20 23:02 Levalbuterol HCl (Xopenex Neb) 1.25 mg QID NEB 03/31/20 21:00 04/02/20 11:11 Levetiracetam 500 mg/Dextrose 105 ml @ 420 mls/hr Q12H IV 03/29/20 16:00 03/29/20 15:50 DC Levetiracetam 500 mg/Dextrose 105 ml @ 420 mls/hr Q12H IV 03/29/20 21:00 04/02/20 08:48 Levofloxacin 750 mg/IV Miscellaneous Supplies 150 ml @ 100 mls/hr Q24H IV 03/30/20 09:00 03/29/20 14:47 DC Metronidazole 500 mg/IV Miscellaneous Supplies 100 ml @ 100 mls/hr Q8H IV 03/29/20 15:00 04/01/20 07:34 DC 04/01/20 06:30 Nystatin (Mycostatin Powder, Nystop) 1 dose BID TOP 04/01/20 09:00 04/02/20 08:49 Pantoprazole Sodium (Protonix) 40 mg DAILY IV 03/30/20 09:00 04/01/20 11:40 DC 04/01/20 09:29 Pantoprazole Sodium (Protonix) 40 mg DAILY IV 04/02/20 09:00 04/02/20 08:48 Polyethylene Glycol (Miralax) 1 pkt QPM GT 04/01/20 21:00 04/01/20 17:33 DC Potassium Chloride 10 meq/ IV Miscellaneous Supplies 100 ml @ 100 mls/hr Q1H IV 04/02/20 08:00 04/02/20 11:59 DC 04/02/20 11:53 Scopolamine (Scopolamine) 1 mg Q72H TOP 03/29/20 23:00 04/01/20 23:48 Sodium Chloride 1,000 ml @ 80 mls/hr [id number] IV 03/29/20 15:00 03/31/20 16:51 DC 03/31/20 03:42 Sodium Chloride 1,000 ml @ 80 mls/hr [id number] IV 04/01/20 16:30 04/02/20 04:11 Vancomycin HCl 1000 mg/IV Miscellaneous Supplies 1 each/ Dextrose 270 ml @ 270 mls/hr Q18H IV 03/31/20 22:00 04/01/20 10:52 DC 03/31/20 21:46 Allergies Coded Allergies: Penicillins (Verified Allergy, Intermediate, rash, 03/29/20) PT HAS TOLERATE MX CEPHALOSPORINS IN THE PAST WITHOUT ISSUE clarithromycin (Verified Allergy, Intermediate, rash , 03/29/20) increase tregrtol level clavulanic acid (Verified Allergy, Intermediate, rash, 03/29/20) corticotropin (Verified Allergy, Intermediate, rash, 04/01/20) adrenocorticotrophic hormone (ACTH) lamotrigine (Verified Allergy, Intermediate, blisters/rash, 03/29/20) Influenza Virus Vaccines (Verified Allergy, Unknown, 03/29/20) amoxicillin (Verified Allergy, Unknown, 03/29/20) grapefruit (Verified Allergy, Unknown, 03/29/20) tetanus and diphtheria toxoids (Verified Allergy, Unknown, 03/29/20) My Gao MD Apr 02, 2020 14:08
[2020-04-02] MEDS ORDERED: KCL 10MEQ/100ML SWI (KRUN) 10 MEQ in IV 1 EA IV SCH (14:30)
[2020-04-02] MEDS: D5W/0.45% SODIUM CHLORIDE 1,000 ML IV SCH (14:40)
[2020-04-02 16:00] VITALS: BP 124/81
[2020-04-02] MEDS ORDERED: SLF 3 ML SYR IV PRN (16:00)
[2020-04-02 20:00] VITALS: BP 127/86
[2020-04-02] MEDS: SLF 3 ML SYR IV SCH (21:38)
[2020-04-03] VITALS: BP 124/66
[2020-04-03 04:00] VITALS: BP 107/61
[2020-04-03] MEDS: D5W/0.45% SODIUM CHLORIDE 1,000 ML IV SCH ×3 (04:16→15:00)
[2020-04-03 05:11] LABS: HEMATOCRIT 39.2 % (36.0-47.0); HEMOGLOBIN 12.9 g/dl (12.0-15.5); MEAN CORPUSCULAR HEMOGLOBIN 32.7 pg (27.0-33.0); MEAN CORPUSCULAR HGB CONC 32.9 g/dl (32.0-36.5); MEAN CORPUSCULAR VOLUME 99.2 fl (80.0-96.0); PLATELET COUNT, AUTOMATED 221 10^3/uL (150-450); RED BLOOD COUNT 3.95 10^6/uL (4.00-5.40); WHITE BLOOD COUNT 10.2 10^3/uL (4.0-10.0)
[2020-04-03] MEDS: SLF 3 ML SYR IV SCH ×3 (05:26→20:44)
[2020-04-03] MEDS: IMIPENEM/CILASTATIN 500 MG in D5W MINI-BAG PLUS 100 ML IV SCH ×4 (05:26→23:55)
[2020-04-03 05:39] LABS: ALBUMIN 2.1 GM/DL (3.2-5.2); ALT/SGPT 21 U/L (12-78); BILIRUBIN,TOTAL 0.4 MG/DL (0.2-1.0); BLOOD UREA NITROGEN 9 MG/DL (7-18); CARBON DIOXIDE LEVEL 24 MEQ/L (21-32); CHLORIDE LEVEL 114 MEQ/L (98-107); CREATININE FOR GFR 0.38 MG/DL (0.55-1.30); GLOMERULAR FILTRATION RATE > 60.0 (>60); GLUCOSE, FASTING 112 MG/DL (70-100); POTASSIUM SERUM 3.2 MEQ/L (3.5-5.1); SODIUM LEVEL 145 MEQ/L (136-145); TOTAL PROTEIN 5.2 GM/DL (6.4-8.2)
[2020-04-03] MEDS: LEVALBUTEROL 1.25 MG/0.5 ML CONCENTRATE NEB NEB SCH ×4 (07:05→19:32)
[2020-04-03] MEDS: KCL 10MEQ/100ML SWI (KRUN) 10 MEQ in IV 1 EA IV SCH ×4 (07:52→14:12)
[2020-04-03 08:00] VITALS: BP 136/84
[2020-04-03] MEDS: ENOXAPARIN 40MG/0.4ML SYRINGE (J1650 PER 10MG) SC SCH (09:13)
[2020-04-03] MEDS: PANTOPRAZOLE 40MG VIAL (C9113 PER 1) IV SCH (09:13)
[2020-04-03] MEDS: levETIRAcetam INJection 500 MG in D5W MINI-BAG PLUS 100 ML IV SCH ×2 (09:14→20:43)
[2020-04-03] MEDS: NYSTATIN 100,000 UNITS/GM TOPICAL PWD 15 GM TOP SCH ×2 (09:14→20:44)
[2020-04-03] MEDS: POLYVINYL ALCOHOL OPHTH SOLN 15 ML(LIQUITEARS) OS SCH ×3 (09:14→20:43)
[2020-04-03] MEDS: CLINDAMYCIN TOP 1% SOLN 60 ML BTL TOP SCH ×2 (09:15→20:44)
--- NOTE | 2020-04-03 11:42 | IPNPDOC ---
Text Note Date of Service The patient was seen on 04/03/20. NOTE SUBJECTIVE: -No issues overnight. Still NPO on maintenance fluids. Afebrile, tachycardia improved. OBJECTIVE VS: HDS, afebrile, HR 89, saturating well on room air GENERAL: Noncommunicative, NAD EYES: PERRLA, EOMI, no eye drainage HENT, MOUTH: NCAT, MMM. NECK: SUPPLE, no adenopathy CV: Regularly rate and rhythm, no murmurs/rubs/gallops RESPIRATORY: Transmitted upper airway sounds with rhonchi bilaterally , bibasilar crackles GI: Distended abdomen, tympanic, hypoactive bowel sounds in all 4 quadrants, G tube and J tube in place, no grimacing on palpation and no guarding : Todd catheter in place EXT: 2+ DP pulses, contracture of b/l hands, RUE?LUE edema as well INTEGUMENTARY: Intact, no noted lesions, no erythema. Diffusely dry skin NEUROLOGIC: No focal deficits noted, no facial droop, could not perform complete neurological exam without patient participation LABORATORY DATA: Please see below for full details WBC 10.2 Hgb 12.9 Platelets 221 Na 145 K 3.2 (repleted) Cr 0.38 MICROBIOLOGY: Resp panel: neg Blood cultures x2 sets: NG at 48 hrs Sputum Cx: pseudomonas, proteus mirabilis UA neg IMAGING: Repeat CT abd/pelvis: 1. Diffuse anasarca. 2. Air-filled and dilated colon. Findings likely represent ileus. 3. Small amount of fluid in the pelvis. Echocardiogram: Normal sinus rhythm with right bundle branch block. Technically difficult study, but some diagnostic useful information was still obtained. M-mode and two-dimensional echocardiography was attempted with pulsed, continuous wave, color flow, and tissue Doppler studies. Normal left ventricular size with borderline left ventricular hypertrophy and hyperkinetic wall motion. Mildly dilated left atrium with grade 1 left ventricular (LV) diastolic dysfunction, but currently normal estimated mean left atrial pressure. Right heart chambers appeared to be normal in size with hyperkinetic wall motion, but Doppler sign of perhaps moderate pulmonary hypertension. Unable to visualize her inferior vena cava (IVC) to further estimate central venous pressure. Normal aortic dimensions. Normal appearing and functioning valvular structures. No apparent intracardiac mass that we could visualize. Miniscule posterior pericardial effusion. ASSESSMENT: 39-year-old W with spastic cerebral palsy with quadriparesis, profound MR, seizure disorder, chronic hypothymia, history of recurrent aspiration pneumonia, history of constrictive pericarditis who was admitted for SBO vs. ileus, bilateral mixed michael CAP with possible aspiration PNA, sepsis and acute on chronic CHF exacerbation whose course has been c/b persistent ileus vs. SBO pending surgery re-evaluation. PLAN: # Ileus vs. SBO -Pending surgery re-evaluation (Dr. Brock) -Stopped tube feeds 04/01/20 due to increased TF in the bag to gravity, on maintenance fluids -Lipase [id number] on admission- improving -Reduce fluids to 50cc/hr -F/u daily labs -Per Dr. Pham (pulmonology): high risk for surgery, may be complicated to extubate post operatively but risk will ultimately be up to HCP/POA to decide on whether or not she would want to take that risk. # Bilateral Pseudomonas and proteus recurrent aspiration PNA -Requiring intermittent suctioning by respiratory, nursing PRN -Blood cultures NG, sputum culture: pseudomonas, proteus -C/w Imipenem/cilastin (Day 2) based off cx/sensitivities. -C/w levalbuterol ATC, PRN -Aspiration precautions -Prior hospitalist discussed with Dr. Pham. # Diastolic CHF exacerbation with right side pleural effusion. Hx of restrictive pericarditis, pericardial effusion and left side pleural effusion requiring drainage. -CT chest above but when reviewed the CT with thoracic surgery(Dr. Sims) he states pleural effusion is trivial. No overt signs of fluid overload on physical exam, no JVD -Last echo 07/2015: LV diastolic dysfunction, EF 65% -Echo this admission: above -Can intermittently diurese PRN # Hypokalemia -3.2 this AM, s/p 10meq K IV x 4 -F/u labs in AM # Hx of spastic cerebral palsy with quadriparesis, profound MR -[facility] staff at bedside, patient at baseline: noncommunicative -continue home meds #Seizure disorder -No seizure activity noted -C/w keppra BID IV #Skin infection of face, underarms, behind ears -C/w home clindamycin gel. #Chronic hypothermia -Temp wnl # GI px. -famotidine BID #DVT px. - Teds/scds, lovenox DISPOSITION: Admitted under inpatient status. Surgery following closely. VS,Fishbone, I+O VS, Fishbone, I+O Laboratory Tests 04/03/20 04:47 Vital Signs Date Time Temp Pulse Resp B/P (MAP) Pulse Ox O2 Delivery O2 Flow Rate FiO2 04/03/20 04:00 96.8 89 20 107/61 (76) 97 Room Air 03/30/20 16:00 2.0 03/29/20 22:00 50 I&O- Last 24 Hours up to 6 AM 04/03/20 06:00 Intake Total 0 ml Output Total 2260 ml Balance -2260 ml YULISSA MERAZ MD Apr 03, 2020 07:10
[2020-04-03 12:00] VITALS: BP 114/62
[2020-04-03] MEDS ORDERED: GASTROGRAFIN SOLUTION 30ML (Q9963) As Ordered ONE ×2 (12:59→13:19)
[2020-04-03] MEDS: SIMETHICONE 40MG/0.6ML DROPS 30ML JT SCH ×3 (13:00→20:43)
[2020-04-03 16:00] VITALS: BP 144/87
[2020-04-03 20:00] VITALS: BP 121/74
[2020-04-04] VITALS: BP 113/77
[2020-04-04 04:00] VITALS: BP 121/82
[2020-04-04] MEDS: IMIPENEM/CILASTATIN 500 MG in D5W MINI-BAG PLUS 100 ML IV SCH ×3 (05:03→17:19)
[2020-04-04] MEDS: SLF 3 ML SYR IV SCH ×3 (05:04→21:43)
[2020-04-04] MEDS: LEVALBUTEROL 1.25 MG/0.5 ML CONCENTRATE NEB NEB SCH ×4 (07:18→19:27)
[2020-04-04 07:50] LABS: INR 1.11; PROTHROMBIN TIME 14.5 SECONDS (12.5-14.3)
[2020-04-04 08:00] VITALS: BP 128/61
[2020-04-04] MEDS: D5W/0.45% SODIUM CHLORIDE 1,000 ML IV SCH (09:03)
[2020-04-04] MEDS: ENOXAPARIN 40MG/0.4ML SYRINGE (J1650 PER 10MG) SC SCH (10:10)
[2020-04-04] MEDS: PANTOPRAZOLE 40MG VIAL (C9113 PER 1) IV SCH (10:10)
[2020-04-04] MEDS: levETIRAcetam INJection 500 MG in D5W MINI-BAG PLUS 100 ML IV SCH ×2 (10:10→21:37)
[2020-04-04] MEDS: SIMETHICONE 40MG/0.6ML DROPS 30ML JT SCH ×4 (10:11→21:42)
[2020-04-04] MEDS: NYSTATIN 100,000 UNITS/GM TOPICAL PWD 15 GM TOP SCH ×2 (10:11→21:42)
[2020-04-04] MEDS: POLYVINYL ALCOHOL OPHTH SOLN 15 ML(LIQUITEARS) OS SCH ×3 (10:12→21:42)
[2020-04-04] MEDS: CLINDAMYCIN TOP 1% SOLN 60 ML BTL TOP SCH ×2 (10:13→21:42)
--- NOTE | 2020-04-04 11:23 | IPNPDOC ---
Text Note Date of Service The patient was seen on 04/04/20. NOTE SUBJECTIVE: -No issues overnight. -Spoke at length with her HCP (mom) who is leaning towards surgery if it is the recommended treatment even with the knowledge that she is at risk pulmonary complications that would make extubation difficult. She is aware that we got the small bowel follow through and wants to directly speak with the surgeon to confirm her decision on moving forward with surgery if that is what is clinically indicated no matter the risk. OBJECTIVE VS: HDS, afebrile, saturating well on room air GENERAL: Noncommunicative, NAD EYES: PERRLA, EOMI HENT: NCAT, MMM. NECK: SUPPLE, thick, short CV: Regularly rate and rhythm, no murmurs/rubs/gallops RESPIRATORY: Transmitted upper airway sounds with rhonchi bilaterally, bibasilar crackles in posterior lung ramirez GI: Obese, hypoactive bowel sounds, G tube and J in place, soft, tympanic, no grimacing on palpation and no guarding : Todd catheter in place draining clear yellow urine EXT: 2+ DP pulses, contracture of b/l hands. Bilateral LE edema and distal LUE edema INTEGUMENTARY: Intact, no noted lesions, no erythema. NEUROLOGIC: No focal deficits noted, no facial droop LABORATORY DATA: Please see below for full details Pending AM labs MICROBIOLOGY: Resp panel: neg Blood cultures x2 sets: NG at 48 hrs Sputum Cx: pseudomonas, proteus mirabilis UA neg IMAGING: Repeat CT abd/pelvis: 1. Diffuse anasarca. 2. Air-filled and dilated colon. Findings likely represent ileus. 3. Small amount of fluid in the pelvis. Echocardiogram: Normal sinus rhythm with right bundle branch block. Technically difficult study, but some diagnostic useful information was still obtained. M-mode and two-dimensional echocardiography was attempted with pulsed, continuous wave, color flow, and tissue Doppler studies. Normal left ventricular size with borderline left ventricular hypertrophy and hyperkinetic wall motion. Mildly dilated left atrium with grade 1 left ventricular (LV) diastolic dysfunction, but currently normal estimated mean left atrial pressure. Right heart chambers appeared to be normal in size with hyperkinetic wall motion, but Doppler sign of perhaps moderate pulmonary hypertension. Unable to visualize her inferior vena cava (IVC) to further estimate central venous pressure. Normal aortic dimensions. Normal appearing and functioning valvular structures. No apparent intracardiac mass that we could visualize. Miniscule posterior pericardial effusion. ASSESSMENT: 39-year-old W with spastic cerebral palsy with quadriparesis, profound MR, seizure disorder, chronic hypothymia, history of recurrent aspiration pneumonia, history of constrictive pericarditis who was admitted for SBO vs. ileus, bilateral mixed michael CAP with possible aspiration PNA, sepsis and acute on chronic CHF exacerbation whose course has been c/b persistent ileus vs. SBO pending surgery re-evaluation. PLAN: # Ileus vs. SBO -Had small bowel follow through, Dr. Brock is closely following and will update him that her mother would like to directly speak with him about potential surgery as she is leaning towards having it for the obstruction despite being high risk. -Stopped tube feeds 04/01/20 due to increased TF in the bag to gravity, on maintenance fluids -continue fluids to 50cc/hr -F/u daily labs -Per Dr. Pham (pulmonology): high risk for surgery, may be complicated to extubate post operatively but risk will ultimately be up to HCP/POA to decide on whether or not she would want to take that risk. # Bilateral Pseudomonas and proteus recurrent aspiration PNA -Requiring intermittent suctioning by respiratory, nursing PRN -Blood cultures NG, sputum culture: pseudomonas, proteus -C/w Imipenem/cilastin (Day 3) based off cx/sensitivities. -C/w levalbuterol ATC, PRN -Aspiration precautions -Prior hospitalist discussed with Dr. Pham. # Diastolic CHF exacerbation with right side pleural effusion. Hx of restrictive pericarditis, pericardial effusion and left side pleural effusion requiring drainage. -CT chest above but when reviewed the CT with thoracic surgery(Dr. Sims) he states pleural effusion is trivial. No overt signs of fluid overload on physical exam, no JVD -Last echo 07/2015: LV diastolic dysfunction, EF 65% -Echo this admission: above -Can intermittently diurese PRN # Hypokalemia -F/u labs in AM # Hx of spastic cerebral palsy with quadriparesis, profound MR -[facility] staff at bedside, patient at baseline: noncommunicative -continue home meds #Seizure disorder -No seizure activity noted -C/w keppra BID IV #Skin infection of face, underarms, behind ears -C/w home clindamycin gel. #Chronic hypothermia -Temp wnl # GI px. -famotidine BID #DVT px. - Teds/scds, lovenox DISPOSITION: Admitted under inpatient status. Surgery following closely. VS,Fishbone, I+O VS, Fishbone, I+O Vital Signs Date Time Temp Pulse Resp B/P (MAP) Pulse Ox O2 Delivery O2 Flow Rate FiO2 04/04/20 04:00 97.3 97 20 121/82 (95) 91 Room Air 03/30/20 16:00 2.0 03/29/20 22:00 50 I&O- Last 24 Hours up to 6 AM 04/04/20 06:00 Intake Total 755 ml Output Total 2065 ml Balance -1310 ml YULISSA MERAZ MD Apr 04, 2020 07:18
[2020-04-04 12:00] VITALS: BP 128/66
[2020-04-04 16:00] VITALS: BP 132/81
--- NOTE | 2020-04-04 16:13 | CR ---
DATE OF CONSULTATION: REASON FOR CONSULTATION: Abnormal CT scan with aspiration pneumonia. BRIEF HISTORY OF PRESENT ILLNESS: Patient is a 39-year-old female with a history of recurrent aspiration who presents with difficulty breathing, increased cough this morning with aspiration of saliva last night. She is nonverbal. Does not communicate and was brought to the emergency room tachypneic and tachycardic. She had a normal bowel movement this morning and was not having any difficulties with her tube feeds. She presented to the hospital with an elevated white count and tachycardia, and a CT scan of the abdomen and pelvis revealed an aspiration pneumonia with a pleural effusion with a distended stomach, proximal small bowel with a gastrojejunostomy tube. There is question whether there is a pneumatosis within the small bowel. The colon is distended with air. There is some thickening within the colon as well. There are some enlarged lymph nodes. MEDICAL HISTORY: Significant for: 1. History of spastic cerebral palsy with quadriparesis. 2. Profound mental retardation. 3. History of seizure disorder. 4. History of chronic hypothermia. 5. Osteopenia. 6. Elevated liver function tests, felt secondary to anticonvulsant use. 7. History of recurrent urinary tract infections. 8. Recurrent aspiration pneumonias. 9. Pericarditis. 10. Recurrent pleural effusions. 11. Tibial plateau fracture. 12. Right humerus fracture. 13. Gastrostomy tubes and replacements through interventional radiology. PHYSICAL EXAMINATION: Reveals a 39-year-old profoundly mentally retarded individual with spastic cerebral palsy, who has minimal response to stimuli, although the geography head who is with her states that this is her baseline. Her lungs are rhoncorous bilaterally. Diminished posteriorly bilaterally. Abdomen is distended, tympanitic. I cannot appreciate any guarding or rebound. I did place the G tube in intermittent suction and aspirated some fluid out. I am not seeing any bloody fluid. Same thing with the feeding portion of this. The jejunostomy tube is draining some tube feed like material, but there is not a significant amount of additional bloody fluid. IMPRESSION AND PLAN: Patient has some thickening around the gastrostomy tube. I am not convinced that this is pneumatosis, although it could be, and I have discussed this with the patient's mother, and specifically at this point, given the lack of adequate physical exam findings and unresponsive individual, we have discussed options of proceeding with operative intervention at this time for an exploratory laparoscopy/possible probably laparotomy with evaluation, possible bowel resection. Otherwise, close observation with antibiotic treatment for the pneumonia. This may be an ileus that we are seeing in the bowel. It also could be bowel that is damaged inflamed, etc. From a surgical standpoint, other options include endoscopy; however, that would require endotracheal intubation, which the mother would like to avoid unless absolutely necessary. Thus, without endotracheal intubation for any procedure, the limitations are supportive care at this time. Obviously the question is whether she would tolerate operative intervention in any case and whether she is an operative candidate. I am not sure from a surgical standpoint, but it is obvious that she is an extremely high risk individual for operative intervention. With most likely having significant postoperative morbidity associated with this, including probable need for prolonged intubation or tracheostomy tube placement. Once again, the mother does not want a tracheostomy tube and would like to avoid that road. Thus, at this point we are limited with the possible treatments for her, other than supportive care, which the mother would like to pursue at this time and like to see how she does over the ensuing hours. She also understands that patient could get worse, perforate, or having bleeding issues or complications associated with her small bowel without a significant ability to have a reliable exam. She understands and would like to try supportive care for this treatment at this time. JAKI
[2020-04-04 20:00] VITALS: BP 113/69
[2020-04-05] VITALS: BP 113/70
[2020-04-05] MEDS: IMIPENEM/CILASTATIN 500 MG in D5W MINI-BAG PLUS 100 ML IV SCH ×4 (00:01→18:05)
[2020-04-05] MEDS: SCOPOLAMINE 1MG TRANSDERMAL PATCH TOP SCH (00:02)
[2020-04-05 04:00] VITALS: BP 131/77
[2020-04-05 05:11] LABS: HEMATOCRIT 41.5 % (36.0-47.0); HEMOGLOBIN 13.6 g/dl (12.0-15.5); MEAN CORPUSCULAR HEMOGLOBIN 32.5 pg (27.0-33.0); MEAN CORPUSCULAR HGB CONC 32.8 g/dl (32.0-36.5); MEAN CORPUSCULAR VOLUME 99.3 fl (80.0-96.0); PLATELET COUNT, AUTOMATED 262 10^3/uL (150-450); RED BLOOD COUNT 4.18 10^6/uL (4.00-5.40); WHITE BLOOD COUNT 9.5 10^3/uL (4.0-10.0)
[2020-04-05 05:45] LABS: ALBUMIN 2.3 GM/DL (3.2-5.2); ALT/SGPT 18 U/L (12-78); BILIRUBIN,TOTAL 0.5 MG/DL (0.2-1.0); BLOOD UREA NITROGEN 9 MG/DL (7-18); CALCIUM LEVEL 8.7 MG/DL (8.5-10.1); CARBON DIOXIDE LEVEL 27 MEQ/L (21-32); CHLORIDE LEVEL 111 MEQ/L (98-107); CREATININE FOR GFR 0.45 MG/DL (0.55-1.30); GLOMERULAR FILTRATION RATE > 60.0 (>60); GLUCOSE, FASTING 102 MG/DL (70-100); POTASSIUM SERUM 2.8 MEQ/L (3.5-5.1); SODIUM LEVEL 144 MEQ/L (136-145); TOTAL PROTEIN 6.5 GM/DL (6.4-8.2)
[2020-04-05] MEDS: SLF 3 ML SYR IV SCH ×3 (06:00→21:02)
[2020-04-05] MEDS: KCL 10MEQ/100ML SWI (KRUN) 10 MEQ in IV 1 EA IV SCH ×5 (07:31→15:24)
[2020-04-05] MEDS: LEVALBUTEROL 1.25 MG/0.5 ML CONCENTRATE NEB NEB SCH ×4 (07:34→19:32)
[2020-04-05 08:00] VITALS: BP 120/73
[2020-04-05] MEDS: PANTOPRAZOLE 40MG VIAL (C9113 PER 1) IV SCH (09:06)
[2020-04-05] MEDS: ENOXAPARIN 40MG/0.4ML SYRINGE (J1650 PER 10MG) SC SCH (09:07)
[2020-04-05] MEDS: SIMETHICONE 40MG/0.6ML DROPS 30ML JT SCH ×4 (09:09→21:00)
[2020-04-05] MEDS: NYSTATIN 100,000 UNITS/GM TOPICAL PWD 15 GM TOP SCH ×2 (09:10→21:01)
[2020-04-05] MEDS: CLINDAMYCIN TOP 1% SOLN 60 ML BTL TOP SCH ×2 (09:11→21:02)
[2020-04-05] MEDS: MIRALAX *UNIT DOSE* 17GM PACKET GT SCH (09:11)
[2020-04-05] MEDS: DOCUSATE SOD LIQ 100MG/10ML UDC GT SCH ×2 (09:12→21:00)
[2020-04-05] MEDS: POLYVINYL ALCOHOL OPHTH SOLN 15 ML(LIQUITEARS) OS SCH ×3 (09:12→21:01)
--- NOTE | 2020-04-05 10:15 | IPNPDOC ---
Text Note Date of Service The patient was seen on 04/05/20. NOTE SUBJECTIVE: -No issues overnight. OBJECTIVE VS: HDS, afebrile, saturating well on room air GENERAL: Noncommunicative, NAD EYES: PERRLA, EOMI HENT: NCAT, MMM. NECK: SUPPLE, thick, short CV: Regularly rate and rhythm, no murmurs/rubs/gallops RESPIRATORY: Transmitted upper airway sounds with rhonchi bilaterally, bibasilar crackles in posterior lung ramirez GI: Obese, hypoactive bowel sounds, G tube and J in place, soft, tympanic, no grimacing on palpation and no guarding : Todd catheter in place draining clear yellow urine EXT: 2+ DP pulses, contracture of b/l hands. Bilateral LE edema and distal LUE edema INTEGUMENTARY: Intact, no noted lesions, no erythema. NEUROLOGIC: No focal deficits noted, no facial droop LABORATORY DATA: Please see below for full details WBC 9.5 Hgb 13.6 platelets 262 Na 144 K 2.8 Cr 0.45 MICROBIOLOGY: Resp panel: neg Blood cultures x2 sets: NG at 48 hrs Sputum Cx: pseudomonas, proteus mirabilis UA neg IMAGING: Repeat CT abd/pelvis: 1. Diffuse anasarca. 2. Air-filled and dilated colon. Findings likely represent ileus. 3. Small amount of fluid in the pelvis. Echocardiogram: Normal sinus rhythm with right bundle branch block. Technically difficult study, but some diagnostic useful information was still obtained. M-mode and two-dimensional echocardiography was attempted with pulsed, continuous wave, color flow, and tissue Doppler studies. Normal left ventricular size with borderline left ventricular hypertrophy and hyperkinetic wall motion. Mildly dilated left atrium with grade 1 left ventricular (LV) diastolic dysfunction, but currently normal estimated mean left atrial pressure. Right heart chambers appeared to be normal in size with hyperkinetic wall motion, but Doppler sign of perhaps moderate pulmonary hypertension. Unable to visualize her inferior vena cava (IVC) to further estimate central venous pressure. Normal aortic dimensions. Normal appearing and functioning valvular structures. No apparent intracardiac mass that we could visualize. Miniscule posterior pericardial effusion. ASSESSMENT: 39-year-old W with spastic cerebral palsy with quadriparesis, profound MR, seizure disorder, chronic hypothymia, history of recurrent aspiration pneumonia, history of constrictive pericarditis who was admitted for SBO vs. ileus, bilateral mixed michael CAP with possible aspiration PNA, sepsis and acute on chronic CHF exacerbation whose course has been c/b persistent ileus vs. SBO with ongoing surgery re-evaluation. PLAN: # Ileus vs. SBO -Had small bowel follow through, Dr. Brock is closely following will speak with radiology this morning about findings, I let him know that her mother would like to directly speak with him about potential surgery as she is leaning towards having it if she has true obstruction despite being high risk. -Stopped tube feeds 04/01/20 due to increased TF in the bag to gravity, on maintenance fluids -continue fluids to 50cc/hr -F/u daily labs -Per Dr. Pham (pulmonology): high risk for surgery, may be complicated to extubate post operatively but risk will ultimately be up to HCP/POA to decide on whether or not she would want to take that risk. # Bilateral Pseudomonas and proteus recurrent aspiration PNA -Requiring intermittent suctioning by respiratory, nursing PRN -Blood cultures NG, sputum culture: pseudomonas, proteus -C/w Imipenem/cilastin (Day 4) based off cx/sensitivities. -C/w levalbuterol ATC, PRN -Aspiration precautions -Prior hospitalist discussed with Dr. Pham. # Diastolic CHF exacerbation with right side pleural effusion. Hx of restrictive pericarditis, pericardial effusion and left side pleural effusion requiring drainage. -CT chest above but when reviewed the CT with thoracic surgery(Dr. Sims) he states pleural effusion is trivial. No overt signs of fluid overload on physical exam, no JVD -Last echo 07/2015: LV diastolic dysfunction, EF 65% -Echo this admission: above -Can intermittently diurese PRN # Hypokalemia -repleting with IV K runs # Hx of spastic cerebral palsy with quadriparesis, profound MR -[facility] staff at bedside, patient at baseline: noncommunicative -continue home meds #Seizure disorder -No seizure activity noted -C/w keppra BID IV #Skin infection of face, underarms, behind ears -C/w home clindamycin gel. #Chronic hypothermia -Temp wnl # GI px. -famotidine BID #DVT px. - Teds/scds, lovenox DISPOSITION: Admitted under inpatient status. Surgery following closely. VS,Fishbone, I+O VS, Fishbone, I+O Laboratory Tests 04/05/20 04:54 Vital Signs Date Time Temp Pulse Resp B/P (MAP) Pulse Ox O2 Delivery O2 Flow Rate FiO2 04/05/20 08:00 97.7 90 18 120/73 (89) 97 Room Air 03/30/20 16:00 2.0 I&O- Last 24 Hours up to 6 AM 04/05/20 06:00 Intake Total 1105 ml Output Total 2025 ml Balance -920 ml YULISSA MERAZ MD Apr 05, 2020 08:45
[2020-04-05] MEDS: levETIRAcetam INJection 500 MG in D5W MINI-BAG PLUS 100 ML IV SCH ×2 (10:35→21:01)
[2020-04-05] MEDS: D5W/0.45% SODIUM CHLORIDE 1,000 ML IV SCH (10:35)
[2020-04-05 12:00] VITALS: BP 108/59
[2020-04-05 16:00] VITALS: BP 122/67
[2020-04-05] MEDS ORDERED: KCL 10MEQ/100ML SWI (KRUN) 10 MEQ in IV 1 EA IV ONE (16:00)
[2020-04-05 20:00] VITALS: BP 110/68
[2020-04-06] VITALS: BP 108/64
[2020-04-06] MEDS: IMIPENEM/CILASTATIN 500 MG in D5W MINI-BAG PLUS 100 ML IV SCH ×5 (01:08→23:52)
[2020-04-06 04:00] VITALS: BP 109/63
[2020-04-06 05:35] LABS: HEMATOCRIT 41.1 % (36.0-47.0); HEMOGLOBIN 13.3 g/dl (12.0-15.5); MEAN CORPUSCULAR HEMOGLOBIN 32.7 pg (27.0-33.0); MEAN CORPUSCULAR HGB CONC 32.4 g/dl (32.0-36.5); PLATELET COUNT, AUTOMATED 296 10^3/uL (150-450); RED BLOOD COUNT 4.07 10^6/uL (4.00-5.40)
[2020-04-06 05:56] LABS: ALBUMIN 2.1 GM/DL (3.2-5.2); ALT/SGPT 17 U/L (12-78); BILIRUBIN,TOTAL 0.5 MG/DL (0.2-1.0); BLOOD UREA NITROGEN 8 MG/DL (7-18); CALCIUM LEVEL 8.8 MG/DL (8.5-10.1); CARBON DIOXIDE LEVEL 27 MEQ/L (21-32); CHLORIDE LEVEL 108 MEQ/L (98-107); CREATININE FOR GFR 0.45 MG/DL (0.55-1.30); GLOMERULAR FILTRATION RATE > 60.0 (>60); GLUCOSE, FASTING 95 MG/DL (70-100); POTASSIUM SERUM 3.9 MEQ/L (3.5-5.1); SODIUM LEVEL 141 MEQ/L (136-145); TOTAL PROTEIN 6.3 GM/DL (6.4-8.2)
[2020-04-06] MEDS: SLF 3 ML SYR IV SCH ×3 (06:00→21:05)
[2020-04-06] MEDS: LEVALBUTEROL 1.25 MG/0.5 ML CONCENTRATE NEB NEB SCH ×4 (07:09→19:40)
[2020-04-06 08:00] VITALS: BP 109/51
[2020-04-06] MEDS ORDERED: KCL 10MEQ/100ML SWI (KRUN) 10 MEQ in IV 1 EA IV SCH (09:00)
[2020-04-06] MEDS: SIMETHICONE 40MG/0.6ML DROPS 30ML JT SCH ×4 (09:24→21:04)
[2020-04-06] MEDS: MIRALAX *UNIT DOSE* 17GM PACKET GT SCH (09:24)
[2020-04-06] MEDS: DOCUSATE SOD LIQ 100MG/10ML UDC GT SCH ×2 (09:24→21:03)
[2020-04-06] MEDS: POLYVINYL ALCOHOL OPHTH SOLN 15 ML(LIQUITEARS) OS SCH ×3 (09:24→21:04)
[2020-04-06] MEDS: levETIRAcetam INJection 500 MG in D5W MINI-BAG PLUS 100 ML IV SCH ×2 (09:24→21:02)
[2020-04-06] MEDS: ENOXAPARIN 40MG/0.4ML SYRINGE (J1650 PER 10MG) SC SCH (09:25)
[2020-04-06] MEDS: CLINDAMYCIN TOP 1% SOLN 60 ML BTL TOP SCH ×2 (09:25→21:05)
[2020-04-06] MEDS: PANTOPRAZOLE 40MG VIAL (C9113 PER 1) IV SCH (09:26)
[2020-04-06] MEDS: NYSTATIN 100,000 UNITS/GM TOPICAL PWD 15 GM TOP SCH ×2 (09:26→21:05)
[2020-04-06 10:00] VITALS: BP 96/62
--- NOTE | 2020-04-06 11:47 | IPN ---
DATE: 03/30/2020 Patient overall has been stable. Her gastrostomy (G) tube and her feeding tube have been draining adequately. The drainage out of the feeding tube has been bilious. The stomach contents have been normal-appearing stomach contents with some bilious changes. Originally there was mild erythematous changes to the drainage, but that has resolved. Her white count has come down nicely from 18,000 down to 11,000, and she is improving from a respiratory standpoint and alertness standpoint. Her BUN is appropriately coming down nicely with hydration. She has had some smears on her diapers and a reported bowel movement yesterday but nothing today so far. PHYSICAL EXAMINATION: She is mildly distended throughout, still tympanitic, but without guarding, without rebound, without peritoneal signs. Once again, her physical exam is difficult given relative unresponsiveness to her exam. IMPRESSION AND PLAN: Patient has improved overall, and I anticipate that given her significant improvement, the majority of her issues was this aspiration pneumonia, the question is whether the aspiration pneumonia caused an ileus that caused this distention or was this partial obstruction that caused an aspiration pneumonia. Given that she has so much air in her colon and has had some stools yesterday, it seems less likely that it was an obstructive presentation. Thus, at this point I would suggest continued supportive care for her. From a surgical standpoint I would recommend that you keep her tubes draining overnight and then tomorrow start up some tube feeds at a low rate, possibly 25 mL an hour with flushes as appropriate, and then keep the G tube to gravity to see if there is a significant backup of fluid through this. If not, then I would progress her tube feedings to her normal rate over the ensuring 24-[address] Benson is available this weekend should you have any further questions on her, but otherwise we will see her on an as-needed basis. JAKI
--- NOTE | 2020-04-06 12:00 | IPN ---
DATE: 04/05/2020 We have been awaiting the results of the upper gastrointestinal (GI) study and still has not returned yet the report; however, I was able to walk to Dr. Harding this morning concerning the small-bowel followthrough that occurred on April 03 and revealed no evidence of small-bowel obstruction. I did obtain a followup KUB yesterday to see where the fluid/Gastrografin was on the study and revealed that it was in the colon. No evidence of obstruction/small-bowel obstruction seen on that study either. Abdomen is still distended, and gastrotomy (G) tube output is still significant to gravity. Her feeding tube drainage is not as significant as it was previously. She had some bowel movements yesterday and has been incontinent of stool, and these have been soft stools. IMPRESSION AND PLAN: Patient has no evidence of bowel obstruction. At this time will clamp her G tube. Will see how she does with checking the residuals every 4 hours. If she tolerates this, will increase her tube feedings. Will see if we can keep her cleaned out. The question, obviously, is whether she has some element of colonic distention that is contributing to compression small bowel, which may be decreasing small bowel emptying, or whether this was all related to an ileus associated with the infection. It is hard to know at this point, but given the resolution of symptoms of the small-bowel study, I do not feel further intervention or surgical intervention is needed at this time. JAKI
--- NOTE | 2020-04-06 12:10 | REP ---
PORTABLE CHEST DATE: 03/31/2020 12:15 pm. HISTORY: Bilateral pneumonia. Single frontal portable view of the chest was performed and compared to prior study of 03/29/2020. There are diffuse bilateral infiltrates which have mildly increased since the prior study. Vasculature appears engorged. There may be small effusions. Cardiomegaly is unchanged. Ununited right humeral fracture is again noted. Moderately-distended air-filled colonic loops are seen in the upper abdomen. IMPRESSION: Mild increase in diffuse bilateral infiltrates. Preliminary report provided by [facility] at the time of the examination. [facility]
--- NOTE | 2020-04-06 12:16 | REP ---
GASTROGRAFIN SMALL BOWEL FOLLOW-THROUGH HISTORY: Small bowel obstruction. COMPARISON: CT study 04/01/2020. PROCEDURE: Sequential films are taken following the injection of half-strength Gastrografin through the patients gastrojejunostomy tube, gastrostomy port. Total of 400 mL was given. FINDINGS: Preliminary senior it auditor radiograph demonstrates moderate distention of colonic loops filling the central abdomen. Post Gastrografin images demonstrate gastrojejunostomy tube in place. No mass or ulcer is seen in the stomach. There is some mucosal fold thickening in the duodenal C loop most likely related to irritation from position of the tube, which courses into the fourth portion of the duodenum near the ligament of Treitz. Visualized jejunal and ileal loops are unremarkable. Right colon is visualized and appears intact. There is a single cecal diverticulum. No small bowel obstructive lesion is seen. IMPRESSION: No small bowel obstructive lesion seen. Distention of the colon may imply ileus. There is a paucity of gas in the region of the rectum. MTDD
--- NOTE | 2020-04-06 13:45 | IPNPDOC ---
Text Note Date of Service The patient was seen on 04/06/20. NOTE SUBJECTIVE: -No acute issues overnight. OBJECTIVE VS: HDS, afebrile, saturating well on room air GENERAL: Noncommunicative, NAD EYES: PERRLA, EOMI HENT: NCAT, MMM. NECK: SUPPLE, thick, short CV: Regularly rate and rhythm, no murmurs/rubs/gallops RESPIRATORY: Transmitted upper airway sounds with rhonchi bilaterally, bibasilar crackles GI: Obese, normoactive bowel sounds, G tube and J in place, soft, tympanic, no grimacing on palpation and no guarding : Todd catheter in place draining clear yellow urine EXT: 2+ DP pulses, contracture of b/l hands. Bilateral LE edema and distal LUE edema INTEGUMENTARY: Intact, no noted lesions, no erythema. NEUROLOGIC: No focal deficits noted, no facial droop LABORATORY DATA: Please see below for full details WBC 9 Hgb 13.5 platelets 296 Na 141 K 3.9 Cr 0.45 MICROBIOLOGY: Resp panel: neg Blood cultures x2 sets: negative Sputum Cx: pseudomonas, proteus mirabilis UA neg IMAGING: Repeat CT abd/pelvis: 1. Diffuse anasarca. 2. Air-filled and dilated colon. Findings likely represent ileus. 3. Small amount of fluid in the pelvis. Echocardiogram: Normal sinus rhythm with right bundle branch block. Technically difficult study, but some diagnostic useful information was still obtained. M-mode and two-dimensional echocardiography was attempted with pulsed, continuous wave, color flow, and tissue Doppler studies. Normal left ventricular size with borderline left ventricular hypertrophy and hyperkinetic wall motion. Mildly dilated left atrium with grade 1 left ventricular (LV) diastolic dysfunction, but currently normal estimated mean left atrial pressure. Right heart chambers appeared to be normal in size with hyperkinetic wall motion, but Doppler sign of perhaps moderate pulmonary hypertension. Unable to visualize her inferior vena cava (IVC) to further estimate central venous pressure. Normal aortic dimensions. Normal appearing and functioning valvular structures. No apparent intracardiac mass that we could visualize. Miniscule posterior pericardial effusion. ASSESSMENT: 39-year-old W with spastic cerebral palsy with quadriparesis, profound MR, seizure disorder, chronic hypothymia, history of recurrent aspiration pneumonia, history of constrictive pericarditis who was admitted for SBO vs. ileus, bilateral mixed michael CAP with possible aspiration PNA, sepsis and acute on chronic CHF exacerbation whose course has been c/b persistent small bowel pseudo-obstruction in the setting of sepsis 2/2 pseudomonas and proteus PNA. PLAN: # Small bowel possible pseudo-obstruction in the setting of sepsis 2/2 pseudomonas and proteus PNA, without a markus SBO: improving -Had small bowel follow through, Dr. Brock discussed with radiology and concluded that she likely had a small bowel pseudo-obstruction in the setting of sepsis 2/2 pseudomonas and proteus PNA. No surgical intervention at this time. continue abx therapy, IVF, bowel rest, restarted feeds this AM and also started a bowel regimen yesterday with good effect. -Restarted tube feeds this AM -DC IVF -F/u daily labs -Per Dr. Pham (pulmonology): high risk for surgery, may be complicated to extubate post operatively if surgery was ever indicated # Bilateral Pseudomonas and proteus recurrent aspiration PNA -Requiring intermittent suctioning by respiratory, nursing PRN -Blood cultures NG, sputum culture: pseudomonas, proteus -C/w Imipenem/cilastin (Day 5 of 7) based off cx/sensitivities. -C/w levalbuterol ATC, PRN -Aspiration precautions -Prior hospitalist discussed with Dr. Pham. # Diastolic CHF exacerbation with right side pleural effusion. Hx of restrictive pericarditis, pericardial effusion and left side pleural effusion requiring drainage. -CT chest above but when reviewed the CT with thoracic surgery(Dr. Sims) he states pleural effusion is trivial. No overt signs of fluid overload on physical exam, no JVD -Last echo 07/2015: LV diastolic dysfunction, EF 65% -Echo this admission: above -Can intermittently diurese PRN # Hypokalemia -repleted # Hx of spastic cerebral palsy with quadriparesis, profound MR -[facility] staff at bedside, patient at baseline: noncommunicative -continue home meds #Seizure disorder -No seizure activity noted -C/w keppra BID IV #Skin infection of face, underarms, behind ears -C/w home clindamycin gel. #Chronic hypothermia -Temp wnl # GI px. -famotidine BID #DVT px. - Teds/scds, lovenox DISPOSITION: Admitted under inpatient status. Surgery following closely. VS,Fishbone, I+O VS, Fishbone, I+O Laboratory Tests 04/05/20 17:20 04/06/20 05:23 Vital Signs Date Time Temp Pulse Resp B/P (MAP) Pulse Ox O2 Delivery O2 Flow Rate FiO2 04/06/20 04:00 97.0 58 18 109/63 (78) 99 Room Air I&O- Last 24 Hours up to 6 AM 04/06/20 06:00 Intake Total 1850 ml Output Total 1900 ml Balance -50 ml YULISSA MERAZ MD Apr 06, 2020 08:57
[2020-04-06 16:00] VITALS: BP 121/56
[2020-04-06 20:00] VITALS: BP 125/59
[2020-04-07] VITALS: BP 123/63
[2020-04-07 04:00] VITALS: BP 131/74
[2020-04-07] MEDS: SLF 3 ML SYR IV SCH ×3 (05:01→22:14)
[2020-04-07] MEDS: IMIPENEM/CILASTATIN 500 MG in D5W MINI-BAG PLUS 100 ML IV SCH ×3 (05:01→17:16)
[2020-04-07 05:54] LABS: HEMOGLOBIN 13.7 g/dl (12.0-15.5); MEAN CORPUSCULAR HEMOGLOBIN 33.4 pg (27.0-33.0); MEAN CORPUSCULAR HGB CONC 33.4 g/dl (32.0-36.5); PLATELET COUNT, AUTOMATED 362 10^3/uL (150-450); WHITE BLOOD COUNT 7.5 10^3/uL (4.0-10.0)
[2020-04-07 06:23] LABS: ALBUMIN 2.3 GM/DL (3.2-5.2); ALT/SGPT 17 U/L (12-78); BILIRUBIN,TOTAL 0.5 MG/DL (0.2-1.0); BLOOD UREA NITROGEN 8 MG/DL (7-18); CALCIUM LEVEL 8.3 MG/DL (8.5-10.1); CARBON DIOXIDE LEVEL 27 MEQ/L (21-32); CHLORIDE LEVEL 108 MEQ/L (98-107); CREATININE FOR GFR 0.36 MG/DL (0.55-1.30); GLOMERULAR FILTRATION RATE > 60.0 (>60); GLUCOSE, FASTING 109 MG/DL (70-100); POTASSIUM SERUM 3.8 MEQ/L (3.5-5.1); SODIUM LEVEL 142 MEQ/L (136-145); TOTAL PROTEIN 5.7 GM/DL (6.4-8.2)
[2020-04-07] MEDS: LEVALBUTEROL 1.25 MG/0.5 ML CONCENTRATE NEB NEB SCH ×4 (07:19→19:52)
[2020-04-07 08:00] VITALS: BP 115/64
[2020-04-07] MEDS: MIRALAX *UNIT DOSE* 17GM PACKET GT SCH (08:18)
[2020-04-07] MEDS: DOCUSATE SOD LIQ 100MG/10ML UDC GT SCH ×2 (08:18→21:00)
[2020-04-07] MEDS: SIMETHICONE 40MG/0.6ML DROPS 30ML JT SCH ×4 (09:12→22:13)
[2020-04-07] MEDS: NYSTATIN 100,000 UNITS/GM TOPICAL PWD 15 GM TOP SCH ×2 (09:12→22:13)
[2020-04-07] MEDS: PANTOPRAZOLE 40MG VIAL (C9113 PER 1) IV SCH (09:13)
[2020-04-07] MEDS: POLYVINYL ALCOHOL OPHTH SOLN 15 ML(LIQUITEARS) OS SCH ×3 (09:13→22:13)
[2020-04-07] MEDS: CLINDAMYCIN TOP 1% SOLN 60 ML BTL TOP SCH ×2 (09:13→22:14)
[2020-04-07] MEDS: levETIRAcetam INJection 500 MG in D5W MINI-BAG PLUS 100 ML IV SCH ×2 (09:15→21:40)
[2020-04-07] MEDS: ENOXAPARIN 40MG/0.4ML SYRINGE (J1650 PER 10MG) SC SCH (09:15)
--- NOTE | 2020-04-07 11:43 | IPNPDOC ---
Text Note Date of Service The patient was seen on 04/07/20. NOTE SUBJECTIVE: -No acute issues overnight. OBJECTIVE VS: HDS, afebrile, saturating well on room air GENERAL: Noncommunicative, NAD EYES: PERRLA, EOMI HENT: NCAT, MMM. NECK: SUPPLE, thick, short CV: Regularly rate and rhythm, no murmurs/rubs/gallops RESPIRATORY: Transmitted upper airway sounds with rhonchi bilaterally, bibasilar crackles GI: Obese, normoactive bowel sounds, G tube and J in place, soft, tympanic, no grimacing on palpation and no guarding : Todd catheter in place draining clear yellow urine EXT: 2+ DP pulses, contracture of b/l hands. Bilateral LE edema and distal LUE edema INTEGUMENTARY: Intact, no noted lesions, no erythema. NEUROLOGIC: No focal deficits noted, no facial droop LABORATORY DATA: Please see below for full details WBC 7.5 Hgb 13.7 platelets 362 Na 142 K 3.8 Cr 0.36 MICROBIOLOGY: Resp panel: neg Blood cultures x2 sets: negative Sputum Cx: pseudomonas, proteus mirabilis UA neg IMAGING: Repeat CT abd/pelvis: 1. Diffuse anasarca. 2. Air-filled and dilated colon. Findings likely represent ileus. 3. Small amount of fluid in the pelvis. Echocardiogram: Normal sinus rhythm with right bundle branch block. Technically difficult study, but some diagnostic useful information was still obtained. M-mode and two-dimensional echocardiography was attempted with pulsed, continuous wave, color flow, and tissue Doppler studies. Normal left ventricular size with borderline left ventricular hypertrophy and hyperkinetic wall motion. Mildly dilated left atrium with grade 1 left ventricular (LV) diastolic dysfunction, but currently normal estimated mean left atrial pressure. Right heart chambers appeared to be normal in size with hyperkinetic wall motion, but Doppler sign of perhaps moderate pulmonary hypertension. Unable to visualize her inferior vena cava (IVC) to further estimate central venous pressure. Normal aortic dimensions. Normal appearing and functioning valvular structures. No apparent intracardiac mass that we could visualize. Miniscule posterior pericardial effusion. ASSESSMENT: 39-year-old W with spastic cerebral palsy with quadriparesis, profound MR, seizure disorder, chronic hypothymia, history of recurrent aspiration pneumonia, history of constrictive pericarditis who was admitted for SBO vs. ileus, bilateral mixed michael CAP with possible aspiration PNA, sepsis and acute on chronic CHF exacerbation whose course was c/b persistent possible pseudo-obstruction in the setting of sepsis 2/2 pseudomonas and proteus PNA, that has now improved and now tolerating tube feeds and completing PNA treatment on 04/08. PLAN: # Small bowel possible pseudo-obstruction in the setting of sepsis 2/2 pseudomonas and proteus PNA, without a markus SBO: improving -Had small bowel follow through, Dr. Brock discussed with radiology and concluded that she likely had a small bowel pseudo-obstruction in the setting of sepsis 2/2 pseudomonas and proteus PNA. No surgical intervention at this time. continue abx therapy, IVF, bowel rest, restarted feeds this AM and also started a bowel regimen yesterday with good effect. -Tolerating tube feeds -F/u daily labs -Per Dr. Pham (pulmonology): high risk for surgery, may be complicated to extubate post operatively if surgery was ever indicated # Bilateral Pseudomonas and proteus recurrent aspiration PNA -Requiring intermittent suctioning by respiratory, nursing PRN -Blood cultures NG, sputum culture: pseudomonas, proteus -C/w Imipenem/cilastin (Day 6 of 7) based off cx/sensitivities. -C/w levalbuterol ATC, PRN -Aspiration precautions -Prior hospitalist discussed with Dr. Pham. # Diastolic CHF exacerbation with right side pleural effusion. Hx of restrictive pericarditis, pericardial effusion and left side pleural effusion requiring drainage. -CT chest above but when reviewed the CT with thoracic surgery(Dr. Sims) he states pleural effusion is trivial. No overt signs of fluid overload on physical exam, no JVD -Last echo 07/2015: LV diastolic dysfunction, EF 65% -Echo this admission: above -Can intermittently diurese PRN # Hypokalemia -repleted # Hx of spastic cerebral palsy with quadriparesis, profound MR -[facility] staff at bedside, patient at baseline: noncommunicative -continue home meds #Seizure disorder -No seizure activity noted -C/w keppra BID IV #Skin infection of face, underarms, behind ears -C/w home clindamycin gel. #Chronic hypothermia -Temp wnl # GI px. -famotidine BID #DVT px. - Teds/scds, lovenox DISPOSITION: Admitted under inpatient status. Possibly discharge back to [facility] on Thursday, will discuss with PFS VS,Rosaura, I+O VS, Fishbone, I+O Laboratory Tests 04/07/20 05:32 Vital Signs Date Time Temp Pulse Resp B/P (MAP) Pulse Ox O2 Delivery O2 Flow Rate FiO2 04/07/20 08:00 98.0 92 18 115/64 (81) 97 Room Air I&O- Last 24 Hours up to 6 AM 04/07/20 06:00 Intake Total 1410 ml Output Total 1475 ml Balance -65 ml YULISSA MREAZ MD Apr 07, 2020 09:44
[2020-04-07 16:00] VITALS: BP 130/74
[2020-04-07 18:15] VITALS: BP 112/77
[2020-04-07 22:00] VITALS: BP 155/85
[2020-04-08] MEDS: IMIPENEM/CILASTATIN 500 MG in D5W MINI-BAG PLUS 100 ML IV SCH ×2 (00:49→06:09)
[2020-04-08] MEDS: SCOPOLAMINE 1MG TRANSDERMAL PATCH TOP SCH (00:49)
[2020-04-08 06:00] VITALS: BP 139/72
[2020-04-08] MEDS: SLF 3 ML SYR IV SCH (06:10)
[2020-04-08 06:59] LABS: HEMATOCRIT 40.5 % (36.0-47.0); HEMOGLOBIN 13.1 g/dl (12.0-15.5); MEAN CORPUSCULAR HEMOGLOBIN 32.7 pg (27.0-33.0); MEAN CORPUSCULAR HGB CONC 32.3 g/dl (32.0-36.5); PLATELET COUNT, AUTOMATED 392 10^3/uL (150-450); RED BLOOD COUNT 4.01 10^6/uL (4.00-5.40)
[2020-04-08] MEDS: LEVALBUTEROL 1.25 MG/0.5 ML CONCENTRATE NEB NEB SCH ×2 (07:19→11:30)
[2020-04-08 07:28] LABS: ALBUMIN 2.2 GM/DL (3.2-5.2); ALT/SGPT 18 U/L (12-78); BILIRUBIN,TOTAL 0.4 MG/DL (0.2-1.0); BLOOD UREA NITROGEN 11 MG/DL (7-18); CALCIUM LEVEL 8.4 MG/DL (8.5-10.1); CARBON DIOXIDE LEVEL 28 MEQ/L (21-32); CHLORIDE LEVEL 107 MEQ/L (98-107); CREATININE FOR GFR 0.39 MG/DL (0.55-1.30); GLOMERULAR FILTRATION RATE > 60.0 (>60); GLUCOSE, FASTING 118 MG/DL (70-100); POTASSIUM SERUM 4.3 MEQ/L (3.5-5.1); SODIUM LEVEL 141 MEQ/L (136-145); TOTAL PROTEIN 5.9 GM/DL (6.4-8.2)
[2020-04-08] MEDS: PANTOPRAZOLE 40MG VIAL (C9113 PER 1) IV SCH (09:27)
[2020-04-08] MEDS: MIRALAX *UNIT DOSE* 17GM PACKET GT SCH (09:27)
[2020-04-08] MEDS: levETIRAcetam INJection 500 MG in D5W MINI-BAG PLUS 100 ML IV SCH (09:27)
[2020-04-08] MEDS: DOCUSATE SOD LIQ 100MG/10ML UDC GT SCH (09:27)
[2020-04-08] MEDS: SIMETHICONE 40MG/0.6ML DROPS 30ML JT SCH ×2 (09:28→13:35)
[2020-04-08] MEDS: POLYVINYL ALCOHOL OPHTH SOLN 15 ML(LIQUITEARS) OS SCH (09:28)
[2020-04-08] MEDS: ENOXAPARIN 40MG/0.4ML SYRINGE (J1650 PER 10MG) SC SCH (09:28)
[2020-04-08] MEDS: NYSTATIN 100,000 UNITS/GM TOPICAL PWD 15 GM TOP SCH (09:29)
[2020-04-08] MEDS: CLINDAMYCIN TOP 1% SOLN 60 ML BTL TOP SCH (09:29)
--- NOTE | 2020-04-08 11:34 | DS.PDOC ---
Discharge Summary General Date of Admission Mar 29, 2020 at 13:54 Date of Discharge 04/08/2020 Attending Physician: YULISSA MERAZ MD Specialist/Consultants Involve: Adryan Brock Jr Discharge Summary PROCEDURES PERFORMED DURING STAY: None ADMITTING DIAGNOSES: 1. Bowel obstruction DISCHARGE DIAGNOSES: Pseudomonas and proteus multifocal pneumonia Acute hypoxemic respiratory failure Severe sepsis in the setting of multifocal pseudomonas and proteus pneumonia Small bowel pseudo obstruction in the setting of sepsis Spastic cerebral palsy with quadriparesis. Profound mental retardation. Seizure disorder. Chronic hypothermia. Osteopenia. Chronically elevated LFT, felt to be related to chronic anticonvulsant use History of recurrent aspiration pneumonia. Acneiform dermatitis. COMPLICATIONS/CHIEF COMPLAINT: Bowel Obstruction. HISTORY OF PRESENT ILLNESS: 39-year-old W with spastic cerebral palsy with quadriparesis, profound mental retardation, seizure disorder, chronic hypothymia, history of recurrent aspiration pneumonia, history of constrictive pericarditis who presented from [facility] with the chief complaint of increasing shortness of breath of 1 day duration. According to staff at [facility], it was believed that last evening the patient aspirated her saliva and by morning she had some difficulty breathing and increased cough which was nonproductive. The patient is nonverbal and does not communicate. They gave her a nebulizer meant which helped only minimally and she was persistently tachypneic and tachycardic. There was no documented fevers, chills, nausea, vomiting, abdominal pains, difficulty with her feeding tube, increased lethargy or abdominal distention reported. The decision was made to bring her in for further evaluation. HOSPITAL COURSE: In the ED she was normotensive but tachycardic to 102, respiratory rate 44, she was 92% on 2 L nasal cannula. WBC was 18.5, H&H 16.8/50.9, sodium 134, MEDICAL LABORATORY SCIENTIST 964, lipase 3578, lactic acid 1.7, troponin negative 1. The patient was using accessory muscles to breathe and appeared to be in distress. CT chest: showed mild consolidation of both lung bases indicating multifocal pneumonia and a large fluid containing hiatal hernia as well as a moderate right pleural effusion with a distended stomach, while the CT abd/pelvis showed high-grade jejunal obstruction with pneumatosis, an appearance concerning for ischemia and/or impending perforation with moderately distended colon with air- likely an ileus as well as irregular wall thickening of the splenic flexure and sigmoid colon concerning for inflammatory/infectious colitis or ischemia with multiple enlarged mesenteric lymph nodes. She was given to 500 mL boluses of fluid and Levaquin and aztreonam for IV antibiotics. Surgery evaluated her at bedside and discussed possible surgery with her mother (HCP) who was apprehensive about surgery at the time and thus decision was made to admit her and medically manage and monitor closely. The feeding tube was set to gravity and she was admitted with diagnosis of SBO vs. ileus, bilateral community acquired with possible aspiration PNA. While inpatient she was initially placed on empiric ceftriaxone, doxycycline and metronidazole and eventually placed on imipenem and completed a 7d course after her sputum grew pseudomonas and proteus. In the meantime, her ileus worsened and she could not tolerate tube feeds with high residuals and was made NPO with regular surgery evaluations. She ultimately had a small bowel follow through that was negative for a true obstruction and the conclusion was made that she likely had a pseudo-obstruction 2/2 sepsis i/s/o of pseudomonas and proteus multifocal PNA. With bowel rest and fluids, her abdominal examination eventually improved and tube feeds were restarted. She has now completed a 7 day course of antibiotics for the pseudomonas and proteus multifocal pneumonia, is tolerating her tube feeds, is breathing comfortably on room air and is making appropriate amounts of urine while at baseline renal function. She is now being discharged back to [facility] where she will continue to follow up with her outpatient providers. DISCHARGE MEDICATIONS: Please see below. ALLERGIES: Please see below. PHYSICAL EXAMINATION ON DISCHARGE: VITAL SIGNS: Please see below. GENERAL: Noncommunicative, NAD EYES: PERRLA, EOMI HENT: NCAT, MMM. NECK: SUPPLE, thick, short CV: Regularly rate and rhythm, no murmurs/rubs/gallops RESPIRATORY: Transmitted upper airway sounds with rhonchi bilaterally, bibasilar crackles GI: Obese, normoactive bowel sounds, G tube and J in place, soft, tympanic, no grimacing on palpation and no guarding : Todd catheter in place draining clear yellow urine EXT: 2+ DP pulses, contracture of b/l hands. Bilateral LE edema and distal LUE edema INTEGUMENTARY: Intact, no noted lesions, no erythema. NEUROLOGIC: No focal deficits noted, no facial droop LABORATORY DATA: Please see below. MICROBIOLOGY: Resp panel: neg Blood cultures x2 sets: negative Sputum Cx: pseudomonas, proteus mirabilis UA neg IMAGIN04/03/2020: Small Bowel XR PROCEDURE: Sequential films are taken following the injection of half-strength Gastrografinthrough the patients gastrojejunostomy tube, gastrostomy port. Total of 400 mL was given. FINDINGS: Preliminary straight truck driver radiograph demonstrates moderate distention of colonic loops filling the central abdomen. Post Gastrografin images demonstrate gastroje junostomy tube in place. No mass or ulcer is seen in the stomach. There is some mucosal fold thickening in the duodenal C loop most likely related to irritation from position of the tube, which courses into the fourth portion of the duodenum near the ligament of Treitz. Visualized jejunal and ileal loops areunremarkable. Right colon is visualized and appears intact. There is a single cecal diverti culum. No small bowel obstructive lesion is seen. IMPRESSION: No small bowel obstructive lesion seen. Distention of the colon may imply ileus.There is a paucity of gas in the region of the rectum. 04/01 CT A/P: Tubes, catheters and devices: Gastrostomy tube. Pleural space: Small left pleural effusion. Liver: Normal. No mass. Gallbladder and bile ducts: Normal. No calcified stones. No ductal dilation. Pancreas: Normal. No ductal dilation. Spleen: Normal. No splenomegaly. Adrenals: Normal. No mass. Kidneys and ureters: 8 mm nonobstructing calculus at the lower pole of the left kidney. Bilateral kidneys are small in caliber/atrophic. Stomach and bowel: Colon is air-filled and dilated. Small bowel is unremarkable. Appendix: No evidence of appendicitis. Intraperitoneal space: Small amount of fluid in the right pelvis. Vasculature: Unremarkable. No abdominal aortic aneurysm. Lymph nodes: Unremarkable. No enlarged lymph nodes. Urinary bladder: Todd's catheter. Reproductive: Unremarkable as visualized. Bones/joints: There is superior dislocation of the bilateral femoral heads. Diffuse demineralization of the bones. Soft tissues: Diffuse anasarca. Other findings: Motion artifact degrades the images. IMPRESSION: 1. Diffuse anasarca. 2. Air-filled and dilated colon. Findings likely represent ileus. 3. Small amount of fluid in the pelvis. 03/31: CXR: Mild increase in diffuse bilateral infiltrates. 03/29/2020: CT chest: 1. There is prominence of the pulmonary vascular markings. These findings may represent congestive heart failure, please correlate clinically. 2. There is mild consolidation of both lung bases. This is new since prior study. This could represent pneumonia in the appropriate clinical setting. 3. There is a large fluid containing hiatal hernia. 4. There is a moderate right pleural effusion. 5. The stomach is moderately distended. Please refer to contemporaneous CT report of the abdomen/pelvis for additional details. 6. There is moderate/severe thoracic kyphosis which may contribute to patient's respiratory distress, please correlate clinically. 03/29: CT abd/pelvis: 1. The duodenum and proximal jejunum are moderately distended with fluid and air. There is jejunal wall thickening at the tip of the gastrostomy tube. There is pneumatosis of the jejunal loop that contains the gastrostomy tube. There is a jejunal transition point in the left upper quadrant at the tip of the gastrostomy tube, beyond which there are several collapsed small bowel loops. There is a moderate amount of fluid surrounding these small bowel loops. 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 Surgical consultation is recommended. 2. The colon is moderately distended with air, likely an ileus. There is irregular wall thickening of the splenic flexure and sigmoid colon concerning for inflammatory/infectious colitis or ischemia. 3. There are multiple enlarged mesenteric lymph nodes. 03/29/2020: TTE: Normal sinus rhythm with right bundle branch block. Technically difficult study, but some diagnostic useful information was still obtained. M-mode and two-dimensional echocardiography was attempted with pulsed, continuous wave, color flow, and tissue Doppler studies. Normal left ventricular size with borderline left ventricular hypertrophy and hyperkinetic wall motion. Mildly dilated left atrium with grade 1 left ventricular (LV) diastolic dysfunction, but currently normal estimated mean left atrial pressure. Right heart chambers appeared to be normal in size with hyperkinetic wall m otion, but Doppler sign of perhaps moderate pulmonary hypertension. Unable to visualize her inferior vena cava (IVC) to further estimate central venous pressure. Normal aortic dimensions. Normal appearing and functioning valvular structures. No apparent intracardiac mass that we could visualize. Miniscule posterior pericardial effusion. PROGNOSIS: Fair, high risk for aspiration PNA with history of recurrent aspiration PNA ACTIVITY: As tolerated DIET: On tube feeds DISCHARGE PLAN: Back to [facility] DISPOSITION: Back to [facility] DISCHARGE INSTRUCTIONS: 1. Back to [facility], with plan for PCP follow up within 1 week ITEMS TO FOLLOWUP ON ON OUTPATIENT: 1. High risk for aspiration DISCHARGE CONDITION: Stable TIME SPENT ON DISCHARGE: 46 minutes. Vital Signs/I&Os Vital Signs Date Time Temp Pulse Resp B/P (MAP) Pulse Ox O2 Delivery O2 Flow Rate FiO2 04/08/20 06:00 97.4 68 20 139/72 (94) 97 Room Air I&O- Last 24 Hours up to 6 AM 04/08/20 06:00 Intake Total 945 ml Output Total 500 ml Balance 445 ml Laboratory Data Labs 24H Laboratory Tests 2 04/08/20 06:36: Nucleated Red Blood Cells % (auto) 0.0, Anion Gap 6L, Glomerular Filtration Rate > 60.0, Calcium Level 8.4L, Total Bilirubin 0.4, Aspartate Amino Transf (AST/SGOT) 31, Alanine Aminotransferase (ALT/SGPT) 18, Alkaline Phosphatase 225H, Total Protein 5.9L, Albumin 2.2L, Albumin/Globulin Ratio 0.6L CBC/BMP Laboratory Tests 04/08/20 06:36 Microbiology Microbiology 03/29/20 Gram Stain - Final, Complete 03/29/20 Sputum Culture - Final, Complete Pseudomonas Aeruginosa Proteus Mirabilis 03/29/20 Blood Culture - Final, Complete NO GROWTH AFTER 5 DAYS 03/29/20 Blood Culture - Final, Complete NO GROWTH AFTER 5 DAYS 03/29/20 Respiratory Virus Panel (PCR) (SUSAN) - Final, Complete Discharge Medications Scheduled Cetirizine HCl (Cetirizine HCl) 10 Mg Tablet, 10 MG GT QHS, (Reported) Clindamycin Phosphate (Clindagel) 1 % Gel, 1 DOSE TOP BID, (Reported) TO FACE, UNDERARMS AND BEHIND EARS Clorazepate Dipotassium (Tranxene T-Tab) 7.5 Mg Tab, 7.5 MG GT BID, (Reported) Cyproheptadine HCl (Cyproheptadine HCl) 4 Mg Tab, 8 MG GT TID, (Reported) Famotidine (Famotidine) 20 Mg Tablet, 20 MG PO BID, (Reported) Ipratropium Don[place]han (Atrovent Hfa) 12.9 Gm Hfa.aer.ad, 1 PUFF INH QID, ( Reported) Lacosamide (Vimpat) 10 Mg/Ml Caroline, 5 ML GT QAM, (Reported) Lacosamide (Vimpat) 10 Mg/Ml Caroline, 7.5 ML GT QHS, (Reported) Lactose-Reduced Food/Fiber (Jevity 1.2 Cedric Liquid) 237 Ml Liquid, 2 CAN GT QPM, (Reported) Levalbuterol HCl (Levalbuterol HCl) 1.25 Mg/3 Ml Neb, 1.25 MG INH QID, (Reported) MAY MIX WITH IPRATROPIUM Levetiracetam (Levetiracetam) 500 Mg/5 Ml Caroline, 500 MG GT BID, (Reported) Nystatin (Nystatin Powder) 100,000 Unit/Gm Pow, 1 DOSE TOP BID, (Reported) APPLIED TO GROIN AREA Polyethylene Glycol 3350 (Miralax) 1 Pow Pow, 17 GM GT QPM, (Reported) HOLD FOR LOOSE STOOLS Protein Supplement (Promod) 946 Ml Liquid, 60 ML GT QHS, (Reported) MIX WITH 30 CC OF WATER Scopolamine (Transderm-Scop) 1.5 Mg Dis, 1.5 MG TD Q3RD, (Reported) Wheat Dextrin (Benefiber) 1 Each Powd.pack, 1 POW GT TID, (Reported) AM, NOON, HS: MIX WITH 60CC OF WATER Scheduled PRN Bisacodyl (Dulcolax) 10 Mg Sup, 10 MG SC ASDIRECTED PRN for CONSTIPATION, (Reported) USE AT QHS ON DAY 5 WITH NO BM Docusate Sodium (Docusate Sodium) 50 Mg/5 Ml Liq, 150 MG GT ASDIRECTED PRN for CONSTIPATION, (Reported) BID IF NO BM IN MORE THAN 2 DAYS. REPEAT IF NO BM MORE THAN 3 DAYS Guaifenesin (Guaifenesin) 100 Mg/5 Ml Liquid, 10 ML PO Q4H PRN for CHEST CONGESTION, (Reported) Ipratropium Don[place]han (Atrovent Hfa) 12.9 Gm Hfa.aer.ad, 1 PUFF INH Q2H PRN for SHORTNESS OF BREATH, (Reported) Ketotifen Fumarate (Zaditor) 5 Ml Drops, 1-2 DROP OU BID PRN for ITCHY EYES, (Reported) Levalbuterol HCl (Levalbuterol HCl) 1.25 Mg/3 Ml Neb, 1.25 MG INH Q2H PRN for SHORTNESS OF BREATH, (Reported) Allergies Coded Allergies: Penicillins (Verified Allergy, Intermediate, rash, 03/29/20) PT HAS TOLERATE MX CEPHALOSPORINS IN THE PAST WITHOUT ISSUE clarithromycin (Verified Allergy, Intermediate, rash , 03/29/20) increase tregrtol level clavulanic acid (Verified Allergy, Intermediate, rash, 03/29/20) corticotropin (Verified Allergy, Intermediate, rash, 04/01/20) adrenocorticotrophic hormone (ACTH) lamotrigine (Verified Allergy, Intermediate, blisters/rash, 03/29/20) Influenza Virus Vaccines (Verified Allergy, Unknown, 03/29/20) amoxicillin (Verified Allergy, Unknown, 03/29/20) grapefruit (Verified Allergy, Unknown, 03/29/20) tetanus and diphtheria toxoids (Verified Allergy, Unknown, 03/29/20) YULISSA MERAZ MD Apr 08, 2020 11:34
--- NOTE | 2020-04-08 11:35 | IPNPDOC ---
Text Note Date of Service The patient was seen on 04/08/20. NOTE SUBJECTIVE: -No acute issues overnight. OBJECTIVE VS: HDS, afebrile, saturating well on room air GENERAL: Noncommunicative, NAD EYES: PERRLA, EOMI HENT: NCAT, MMM. NECK: SUPPLE, thick, short CV: Regularly rate and rhythm, no murmurs/rubs/gallops RESPIRATORY: Transmitted upper airway sounds with rhonchi bilaterally GI: Obese, normoactive bowel sounds, G tube and J in place, soft, tympanic, no grimacing on palpation and no guarding : Todd catheter in place draining clear yellow urine EXT: 2+ DP pulses, contracture of b/l hands. Bilateral LE edema and distal LUE edema INTEGUMENTARY: Intact, no noted lesions, no erythema. NEUROLOGIC: No focal deficits noted, no facial droop LABORATORY DATA: Please see below for full details WBC 10 Hgb 13.1 platelets 392 Na 141 K 4.3 Cr 0.39 MICROBIOLOGY: Resp panel: neg Blood cultures x2 sets: negative Sputum Cx: pseudomonas, proteus mirabilis UA neg IMAGING: Repeat CT abd/pelvis: 1. Diffuse anasarca. 2. Air-filled and dilated colon. Findings likely represent ileus. 3. Small amount of fluid in the pelvis. Echocardiogram: Normal sinus rhythm with right bundle branch block. Technically difficult study, but some diagnostic useful information was still obtained. M-mode and two-dimensional echocardiography was attempted with pulsed, continuous wave, color flow, and tissue Doppler studies. Normal left ventricular size with borderline left ventricular hypertrophy and hyperkinetic wall motion. Mildly dilated left atrium with grade 1 left ventricular (LV) diastolic dysfunction, but currently normal estimated mean left atrial pressure. Right heart chambers appeared to be normal in size with hyperkinetic wall motion, but Doppler sign of perhaps moderate pulmonary hypertension. Unable to visualize her inferior vena cava (IVC) to further estimate central venous pressure. Normal aortic dimensions. Normal appearing and functioning valvular structures. No apparent intracardiac mass that we could visualize. Miniscule posterior pericardial effusion. ASSESSMENT: 39-year-old W with spastic cerebral palsy with quadriparesis, profound MR, seizure disorder, chronic hypothymia, history of recurrent aspiration pneumonia, history of constrictive pericarditis who was admitted for SBO vs. ileus, bilateral mixed michael CAP with possible aspiration PNA, sepsis and acute on chronic CHF exacerbation whose course was c/b persistent possible pseudo-obstruction in the setting of sepsis 2/2 pseudomonas and proteus PNA, that has now improved and now tolerating tube feeds and completing PNA treatment on 04/08. PLAN: # Small bowel possible pseudo-obstruction in the setting of sepsis 2/2 pseudomonas and proteus PNA, without a markus SBO: improving -Had small bowel follow through, Dr. Brock discussed with radiology and concluded that she likely had a small bowel pseudo-obstruction in the setting of sepsis 2/2 pseudomonas and proteus PNA. No surgical intervention at this time. continue abx therapy, IVF, bowel rest, restarted feeds this AM and also started a bowel regimen yesterday with good effect. -Tolerating tube feeds -F/u daily labs -Per Dr. Pham (pulmonology): high risk for surgery, may be complicated to extubate post operatively if surgery was ever indicated # Bilateral Pseudomonas and proteus recurrent aspiration PNA -Requiring intermittent suctioning by respiratory, nursing PRN -Blood cultures NG, sputum culture: pseudomonas, proteus -C/w Imipenem/cilastin (Day 7 of 7) based off cx/sensitivities. -C/w levalbuterol ATC, PRN -Aspiration precautions -Prior hospitalist discussed with Dr. Pham. # Diastolic CHF exacerbation with right side pleural effusion. Hx of restrictive pericarditis, pericardial effusion and left side pleural effusion requiring drainage. -CT chest above but when reviewed the CT with thoracic surgery(Dr. Sims) he states pleural effusion is trivial. No overt signs of fluid overload on physical exam, no JVD -Last echo 07/2015: LV diastolic dysfunction, EF 65% -Echo this admission: above -Can intermittently diurese PRN # Hypokalemia -repleted # Hx of spastic cerebral palsy with quadriparesis, profound MR -[facility] staff at bedside, patient at baseline: noncommunicative -continue home meds #Seizure disorder -No seizure activity noted -C/w keppra BID IV #Skin infection of face, underarms, behind ears -C/w home clindamycin gel. #Chronic hypothermia -Temp wnl # GI px. -famotidine BID #DVT px. - Teds/scds, lovenox DISPOSITION: Discharging her back to [facility] today. VS,Fishbone, I+O VS, Fishbone, I+O Laboratory Tests 04/08/20 06:36 Vital Signs Date Time Temp Pulse Resp B/P (MAP) Pulse Ox O2 Delivery O2 Flow Rate FiO2 04/08/20 06:00 97.4 68 20 139/72 (94) 97 Room Air I&O- Last 24 Hours up to 6 AM 04/08/20 06:00 Intake Total 945 ml Output Total 500 ml Balance 445 ml YULISSA MERAZ MD Apr 08, 2020 09:06
--- NOTE | 2020-04-11 15:14 | REP ---
KUB: 2-VIEWS HISTORY: Colonic distension. FINDINGS: Two views of the abdomen demonstrate dilute Gastrografin administered on the previous day through the patients feeding tube opacifying the colon from cecum to rectum. No obstructive lesion is seen. The colon is mildly distended. MTDD
--- NOTE | 2020-04-11 15:36 | IPN ---
DATE: __04/08/20 SUBJECTIVE: The patient has tolerated her increased tube feeds and without significant gastric residuals overnight. She has still been afebrile and her white count is still normal. Her abdomen is soft, nontender. Her feeding tube is functioning fine at this time. IMPRESSION AND PLAN: The patient has had an evidence of probable ileus more than obstruction for what she has resolved at this point. In any case, I would think that she has had a little bit of over feeding over time, or it may just be a total volume issue that she might be better off with this lower volume, 1.5 Jevity, 35 mL an hour and with flushes. Obviously she will need to have a nutrition evaluation/consult prior to discharge to make sure there is not a significant need for increased amount over time, but at this point she is tolerating it well and can be discharged to home and will need to follow up with her primary care thereafter. JAKI
== END 2020-04-08 14:30 | disposition home or self-care (01) | DRG 720 ==
LOC: M ED 07:59 → EDBD 07:59 → M ED INP 13:54 → ENRESERV 14:05 → M PCU 17:05 → M ICU 17:20 → M PCU 03-30 18:15 → M MS5PR 04-07 18:06
PROVIDERS: ADMIT Internal Medicine; ATTEND Internal Medicine
DX: A41.9 Sepsis, unspecified organism (principal); J96.01 Acute respiratory failure with hypoxia; J69.0 Pneumonitis due to inhalation of food and vomit; I50.33 Acute on chronic diastolic (congestive) heart failure; K56.609 Unspecified intestinal obstruction, unspecified as to partial versus complete obstruction; J15.1 Pneumonia due to Pseudomonas; F73 Profound intellectual disabilities; G80.0 Spastic quadriplegic cerebral palsy; Z93.1 Gastrostomy status; M40.204 Unspecified kyphosis, thoracic region; E86.0 Dehydration; E87.6 Hypokalemia; G40.909 Epilepsy, unspecified, not intractable, without status epilepticus; R68.0 Hypothermia, not associated with low environmental temperature; L59.8 Other specified disorders of the skin and subcutaneous tissue related to radiation; K44.9 Diaphragmatic hernia without obstruction or gangrene; Z79.899 Other long term (current) drug therapy; Z88.0 Allergy status to penicillin; Z88.8 Allergy status to other drugs, medicaments and biological substances; Z91.018 Allergy to other foods; Z88.7 Allergy status to serum and vaccine; Z88.1 Allergy status to other antibiotic agents

== ENCOUNTER → 2020-04-09 | Outpatient (CLI) | payer MEDICAID ==
[~2020-04-09] MED LIST changes: +GUAI100L6 PO; +ISOVUE-300 61% 50ML VIAL As Ordered ONE; +LIDOCAINE 1% MDV 20ML VIAL As Ordered ONE
[2020-04-09 12:29] VITALS: BP 91/54
--- NOTE | 2020-04-11 09:42 | POST-OPPD ---
Postoperative Procedure Note Date Of Procedure: Apr 09, 2020 Time Of Procedure: 16:00 IR Gastrojejunostomy Catheter Exchange. Gastrojejunostomy catheter exchange with fluoroscopic guidance. Clinical Information:Aspiration risk. GJ tube dependent. Leaking from tube. Physician: Dr. Weeks. Procedure: The patient's indirect sales representative was advised of the benefits, risks, and alternatives of the procedure and informed consent was obtained. A time out was performed with verification of the patient's name, MRN, site of procedure, and type of procedure to be performed. The patient was positioned in the supine position on the angiographic table. The site was prepped and draped in the usual sterile fashion. Moderate sedation was not required. The physician spent 30 minutes of continuous [id number] time with the patient. A rail filler radiograph reveals a gastrojejunostomy catheter. The gastric and jejunal ports of the catheter were injected with contrast demonstrating the catheter is split at the hub and leaking externally. A stiff Luning wire was advanced through the catheter into the mid jejunum under fluoroscopic guidance. The retention balloon was deflated and the catheter was removed over the wire without difficulty. A new 22 [place] SUSAN gastrojejunostomy catheter was advanced over the wire into the proximal jejunum. The retention balloon was inflated and then retracted against the anterior stomach wall. Appropriate positioning of the catheter was confirmed with injection of contrast through the gastric and jejunal ports. The retention disc was approximated to the skin of the abdominal wall and secured with 2-0 silk. A sterile dressing was applied. The patient tolerated the procedure well and was returned to the PRU in stable condition. EBL: < 5 mL. Complications: None. Conclusion: Successful exchange of 22 [place] double lumen SUSAN gastrojejunostomy catheter. The catheter is ready for immediate use. NUPUR WEEKS MD Apr 11, 2020 09:42
== END ==
LOC: M IRPRO 11:07
PROVIDERS: ATTEND Radiology Diagnostic Radiology
DX: K94.23 Gastrostomy malfunction (principal)
CPT/HCPCS: 43762; C1729; C1769; Q9967

== ENCOUNTER → 2020-05-10 | Outpatient (CLI) | payer MEDICAID ==
[~2020-05-10] MED LIST changes: -ISOVUE-300 61% 50ML VIAL As Ordered ONE; -LIDOCAINE 1% MDV 20ML VIAL As Ordered ONE
== END ==
LOC: M LAB 10:28
PROVIDERS: ATTEND Physician Assistant Medical
DX: R56.9 Unspecified convulsions (principal)

== ENCOUNTER → 2020-05-10 | Outpatient (CLI) | payer MEDICAID ==
[2020-05-10 11:20] LABS: HEMATOCRIT 47.5 % (36.0-47.0); HEMOGLOBIN 15.1 g/dl (12.0-15.5); MEAN CORPUSCULAR HEMOGLOBIN 32.6 pg (27.0-33.0); MEAN CORPUSCULAR HGB CONC 31.8 g/dl (32.0-36.5); MEAN CORPUSCULAR VOLUME 102.6 fl (80.0-96.0); PLATELET COUNT, AUTOMATED 268 10^3/uL (150-450); RED BLOOD COUNT 4.63 10^6/uL (4.00-5.40); WHITE BLOOD COUNT 4.6 10^3/uL (4.0-10.0)
[2020-05-10 12:39] LABS: ALBUMIN 3.2 GM/DL (3.2-5.2); ALT/SGPT 49 U/L (12-78); BILIRUBIN,TOTAL 0.5 MG/DL (0.2-1.0); BLOOD UREA NITROGEN 22 MG/DL (7-18); CALCIUM LEVEL 9.7 MG/DL (8.5-10.1); CARBON DIOXIDE LEVEL 26 MEQ/L (21-32); CHLORIDE LEVEL 107 MEQ/L (98-107); CHOLESTEROL LEVEL 188 MG/DL (<200); CHOLESTEROL RISK RATIO 2.647 (<5); CREATININE FOR GFR 0.31 MG/DL (0.55-1.30); GLOMERULAR FILTRATION RATE > 60.0 (>60); GLUCOSE, FASTING 105 MG/DL (70-100); HDL CHOLESTEROL 71 MG/DL (>40); LDL CHOLESTEROL 101 MG/DL (<100); NON-HDL-C 117 MG/DL; POTASSIUM SERUM 4.8 MEQ/L (3.5-5.1); SODIUM LEVEL 139 MEQ/L (136-145); TOTAL 25(OH) VITAMIN D 42.9 NG/ML (30.0-100.0); TOTAL PROTEIN 7.8 GM/DL (6.4-8.2); TRIGLYCERIDES LEVEL 82 MG/DL (<150)
== END ==
LOC: M LAB 10:24
PROVIDERS: ATTEND Family Medicine
DX: G40.309 Generalized idiopathic epilepsy and epileptic syndromes, not intractable, without status epilepticus (principal); Z93.1 Gastrostomy status; M81.8 Other osteoporosis without current pathological fracture; Z13.220 Encounter for screening for lipoid disorders

== ENCOUNTER 2020-07-11 12:47 | Outpatient (CLI) | payer MEDICAID ==
[~2020-07-11 12:47] MED LIST changes: +LACO10SO GT; +LACO10SO PO; +ZOLEDRONIC ACID 5 MG in IV 1 EA IV ONE; -[UNRECOGNIZED DRUG - CODE] PO
[2020-07-11 13:00] VITALS: BP 110/74
[2020-07-11] MEDS ORDERED: ZOLEDRONIC ACID 5 MG in IV 1 EA IV ONE (13:00)
[2020-07-11 13:45] VITALS: BP 108/70
== END 2020-07-11 16:23 | disposition home or self-care (01) ==
LOC: M INFU 12:47
PROVIDERS: ATTEND Family Medicine
DX: M81.0 Age-related osteoporosis without current pathological fracture (principal); Z88.0 Allergy status to penicillin; Z88.1 Allergy status to other antibiotic agents; Z88.7 Allergy status to serum and vaccine
CPT/HCPCS: 96365; J3489

== ENCOUNTER → 2020-08-08 | Outpatient (CLI) | payer MEDICAID ==
[~2020-08-08] MED LIST changes: -CLIN150C14 GT; +CLIN150C15 GT; +CLINDAMYCIN 600 MG in IV 1 EA IV ONE; +CYPR4TA PO; +ISOVUE-300 61% 50ML VIAL As Ordered ONE; +LEVAINH NEB; +LIDOCAINE 1% MDV 20ML VIAL As Ordered ONE; -ZOLEDRONIC ACID 5 MG in IV 1 EA IV ONE; +[UNRECOGNIZED DRUG - CODE] TP
[2020-08-08 12:52] VITALS: BP 114/75
--- NOTE | 2020-08-09 12:53 | POST-OPPD ---
Postoperative Procedure Note Date Of Procedure: Aug 08, 2020 Time Of Procedure: 16:00 IR Gastrojejunostomy Catheter Exchange. Gastrojejunostomy catheter exchange with fluoroscopic guidance. Clinical Information:Aspiration risk. GJ tube dependent. Tube clogged. Physician: Dr. Weeks. 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 A time out was performed with verification of the patient's name, MRN, site of procedure, and type of procedure to be performed. The patient was positioned in the supine position on the angiographic table. The site was prepped and draped in the usual sterile fashion. Moderate sedation was not required. The physician spent 30 minutes of continuous yuac-qz-gayd time with the patient. A auto body mechanic radiograph reveals a gastrojejunostomy catheter. The gastric and jejunal ports of the catheter were injected with contrast d emonstrating the catheter is clogged. A stiff [place] wire was advanced through the catheter into the mid jejunum under fluoroscopic guidance. The retention balloon was deflated and the catheter was removed over the wire without difficulty. A new 22 Montenegrin SUSAN gastrojejunostomy catheter was advanced over the wire into the proximal jejunum. The retention balloon was inflated and then retracted against the anterior stomach wall. Appropriate positioning of the catheter was confirmed with injection of contrast through the gastric and jejunal ports. The retention disc was approximated to the skin of the abdominal wall. A sterile dressing was applied. The patient tolerated the procedure well and was returned to the PRU in stable condition. EBL: < 5 mL. Complications: None. Conclusion: Successful exchange of 22 Montenegrin double lumen SUSAN gastrojejunostomy catheter. The catheter is ready for immediate use. Thank you for this referral. NUPUR WEEKS MD Aug 09, 2020 12:53
== END ==
LOC: M IRPRO 10:25
PROVIDERS: ATTEND Radiology Diagnostic Radiology
DX: K94.23 Gastrostomy malfunction (principal)
CPT/HCPCS: 49450; C1729; C1769; Q9967

== ENCOUNTER → 2020-11-05 | Outpatient (CLI) | payer MEDICARE, MEDICAID ==
[~2020-11-05] MED LIST changes: -CLINDAMYCIN 600 MG in IV 1 EA IV ONE; -FLUC10SU GT; +FLUC10SU2 GT; -ISOVUE-300 61% 50ML VIAL As Ordered ONE; -LIDOCAINE 1% MDV 20ML VIAL As Ordered ONE
[2020-11-08 17:09] LABS: LACOSAMIDE LEVEL 3.4 ug/mL (5.0-10.0); LEVETIRACETAM (KEPPRA) 24.3 ug/mL (10.0-40.0)
== END ==
LOC: M WUC 08:27
PROVIDERS: ATTEND Physician Assistant Medical
DX: G40.89 Other seizures (principal)

== ENCOUNTER → 2020-11-21 | Outpatient (CLI) | payer MEDICARE, MEDICAID ==
[~2020-11-21] MED LIST changes: +ISOVUE-300 61% 50ML VIAL As Ordered ONE
[2020-11-21 13:40] VITALS: BP 132/91
--- NOTE | 2020-11-26 13:09 | IRPON ---
IR Postoperative Note Date Of Procedure: November 26, 2020 Time Of Procedure: 16:00 IR Postoperative Note IR Gastrojejunostomy Catheter Exchange. Gastrojejunostomy catheter exchange with fluoroscopic guidance. Clinical Information: GJ dependent. GJ clogged. Physician: Dr. Weeks. Procedure: The patient was advised of the benefits, risks, and alternatives of the procedure and informed consent was obtained. A time out was performed with verification of the patient's name, MRN, site of procedure, and type of procedure to be performed. The patient was positioned in the supine position on the angiographic table. The site was prepped and draped in the usual sterile fashion. Moderate sedation was performed by the physician including the presence of an independent trained RN who assisted in monitoring the patient's level of consciousness and physiological status. Following the administration of Fentanyl and Versed, the physician spent 30 minutes of continuous mfbc-mc-eicd time with the patient. A consolidator radiograph reveals a GJ catheter. The gastric and jejunal ports of the catheter were injected with contrast demonstrating that the tube is clogged. A stiff [place] wire was advanced through the catheter into the mid jejunum under fluoroscopic guidance. The retention balloon was deflated and the catheter was removed over the wire without difficulty. A new 22 Chinese SUSAN gastrojejunostomy catheter was advanced over the wire into the proximal jejunum. The retention balloon was inflated and then retracted against the anterior stomach wall. Appropriate positioning of the catheter was confirmed with injection of contrast through the gastric and jejunal ports. The retention disc was approximated to the skin of the abdominal wall. A sterile dressing was applied. The patient tolerated the procedure well and was returned to the PRU in stable condition. EBL: < 5 mL. Complications: None. Conclusion: Successful exchange of 22 Chinese double lumen SUSAN gastrojejunostomy catheter. The catheter is ready for immediate use. NUPUR WEEKS MD November 26, 2020 13:09
== END ==
LOC: M IRPRO 11:17
PROVIDERS: ATTEND Radiology Diagnostic Radiology
DX: K94.23 Gastrostomy malfunction (principal); Z88.0 Allergy status to penicillin; Z88.1 Allergy status to other antibiotic agents; Z88.7 Allergy status to serum and vaccine; Z88.8 Allergy status to other drugs, medicaments and biological substances; Z91.018 Allergy to other foods
CPT/HCPCS: 49450; C1729; C1769; C1887; Q9967

== ENCOUNTER → 2021-01-07 | Outpatient (CLI) | payer MEDICARE, MEDICAID ==
[~2021-01-07] MED LIST changes: -ISOVUE-300 61% 50ML VIAL As Ordered ONE
[2021-01-07 14:26] LABS: HEMATOCRIT 40.8 % (36.0-47.0); HEMOGLOBIN 13.2 g/dl (12.0-15.5); MEAN CORPUSCULAR HEMOGLOBIN 34.7 pg (27.0-33.0); MEAN CORPUSCULAR HGB CONC 32.4 g/dl (32.0-36.5); MEAN CORPUSCULAR VOLUME 107.4 fl (80.0-96.0); PLATELET COUNT, AUTOMATED 194 10^3/uL (150-450); WHITE BLOOD COUNT 3.8 10^3/uL (4.0-10.0)
[2021-01-07 14:44] LABS: HEMOGLOBIN A1c 4.8 %
[2021-01-07 15:10] LABS: ALBUMIN 3.1 GM/DL (3.2-5.2); ALT/SGPT 48 U/L (12-78); BILIRUBIN,TOTAL 0.3 MG/DL (0.2-1.0); BLOOD UREA NITROGEN 22 MG/DL (7-18); CARBON DIOXIDE LEVEL 28 MEQ/L (21-32); CHLORIDE LEVEL 107 MEQ/L (98-107); CREATININE FOR GFR 0.44 MG/DL (0.55-1.30); GLOMERULAR FILTRATION RATE > 60.0 (>58); GLUCOSE, FASTING 92 MG/DL (70-100); SODIUM LEVEL 141 MEQ/L (136-145); TOTAL PROTEIN 7.5 GM/DL (6.4-8.2)
[2021-01-07 15:11] LABS: TOTAL 25(OH) VITAMIN D 54.9 NG/ML (30.0-100.0)
== END ==
LOC: M WUC 09:34
PROVIDERS: ATTEND Family Medicine
DX: E55.9 Vitamin D deficiency, unspecified (principal); Z93.1 Gastrostomy status; Z13.1 Encounter for screening for diabetes mellitus; Z79.899 Other long term (current) drug therapy

== ENCOUNTER 2021-01-23 15:47 | Inpatient (IN) | payer MEDICARE, MEDICAID ==
[~2021-01-23] VITALS: Ht 144.8 cm; Wt 64.2 kg
[~2021-01-23 15:47] MED LIST changes: +[UNRECOGNIZED DRUG - CODE] TOP; -[UNRECOGNIZED DRUG - CODE] TP
--- NOTE | 2021-01-23 16:59 | REP ---
INDICATION: DYSPNEA/COUGH COMPARISON: 03/31/2020 as well as other prior exams. TECHNIQUE: PA/Lateral FINDINGS: Lungs: There is no radiographic evidence of infiltrate bilaterally. There is poor ventilation. Heart: Prominent cardiac silhouette is unchanged. Mediastinum: Mediastinal silhouette unremarkable. Pleural angles: Unremarkable.. Bones and soft tissues: Grossly unremarkable. IMPRESSION: No definite acute infiltrate. Poor ventilation. <Electronically signed by Aydin Walker > 01/23/21 [id number]
[2021-01-23 17:53] LABS: BASO % 0.2 % (0.0-1.0); EOS # 0.1 10^3/uL (0.0-0.5); EOS % 1.7 % (0.0-3.0); HEMATOCRIT 39.2 % (36.0-47.0); HEMOGLOBIN 12.5 g/dl (12.0-15.5); LYMPH # 1.5 10^3/uL (1.5-5.0); LYMPH % 36.8 % (24.0-44.0); MEAN CORPUSCULAR HEMOGLOBIN 34.3 pg (27.0-33.0); MEAN CORPUSCULAR HGB CONC 31.9 g/dl (32.0-36.5); MEAN CORPUSCULAR VOLUME 107.7 fl (80.0-96.0); MONO # 0.4 10^3/uL (0.0-0.8); MONO % 8.6 % (2.0-8.0); NEUTROPHILS # 2.1 10^3/uL (1.5-8.5); NEUTROPHILS % 52.7 % (36.0-66.0); PLATELET COUNT, AUTOMATED 214 10^3/uL (150-450); RED BLOOD COUNT 3.64 10^6/uL (4.00-5.40); WHITE BLOOD COUNT 4.1 10^3/uL (4.0-10.0)
[2021-01-23] MEDS ORDERED: NS 1,000 ML IV ONE (17:55)
--- NOTE | 2021-01-23 17:56 | ECGEPIP ---
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
[2021-01-23 18:29] LABS: ALBUMIN 2.7 GM/DL (3.2-5.2); ALT/SGPT 68 U/L (12-78); BILIRUBIN,DIRECT < 0.1 MG/DL (0.0-0.2); BILIRUBIN,TOTAL 0.2 MG/DL (0.2-1.0); BLOOD UREA NITROGEN 24 MG/DL (7-18); CALCIUM LEVEL 8.3 MG/DL (8.5-10.1); CARBON DIOXIDE LEVEL 31 MEQ/L (21-32); CHLORIDE LEVEL 109 MEQ/L (98-107); CK-MB VALUE MASS 2.8 NG/ML (<3.6); CPK CREATINE PHOSPHOKINASE 52 U/L (26-192); CREATININE FOR GFR 0.38 MG/DL (0.55-1.30); GLOMERULAR FILTRATION RATE > 60.0 (>58); GLUCOSE, FASTING 86 MG/DL (70-100); MB/CK RELATIVE INDEX 5.38 (< OR =4); NT-PRO BNP 25 PG/ML (<125); POTASSIUM SERUM 4.3 MEQ/L (3.5-5.1); SODIUM LEVEL 143 MEQ/L (136-145); TOTAL PROTEIN 6.9 GM/DL (6.4-8.2); TROPONIN I < 0.02 NG/ML (< 0.10)
--- NOTE | 2021-01-23 20:40 | REPVR ---
PROCEDURE INFORMATION: Exam: US Duplex Lower Extremity Veins, Bilateral Exam date and time: 01/23/2021 8:06 PM Age: 40 years old Clinical indication: Pain; Leg, lower; Bilateral; Additional info: Rule out dvt TECHNIQUE: Imaging protocol: Real-time duplex ultrasound of the extremities with 2-D ospina scale, color Doppler flow and spectral waveform analysis with image documentation. Complete exam focused on the bilateral lower extremity veins. COMPARISON: US Duplex, Ext,LOWER veins,unilat 07/13/2016 10:52 AM FINDINGS: Right deep veins: Unremarkable. The common femoral, femoral, popliteal and visualized calf veins are patent without thrombus. Normal Doppler waveforms. Normal compressibility and/or augmentation response. Right superficial veins: Saphenofemoral junction is patent without thrombus. Left deep veins: Unremarkable. The common femoral, femoral, popliteal and visualized calf veins are patent without thrombus. Normal Doppler waveforms. Normal compressibility and/or augmentation response. Left superficial veins: Saphenofemoral junction is patent without thrombus. Soft tissues: Unremarkable. IMPRESSION: No sonographic evidence of deep vein thrombosis. Electronically signed by: Daniel Gay On 01/23/2021 20:40:13 PM
[2021-01-23] MEDS: CETIRIZINE (ZyrTEC) 10 MG TAB GT SCH (21:00)
[2021-01-23] MEDS ORDERED: ALBUTEROL SULFATE 2.5 MG/0.5 ML INH NEB SOLN NEB ONE (23:00)
[2021-01-23] MEDS ORDERED: ISOVUE-370 76% 100ML VIAL As Ordered ONE (23:10)
--- NOTE | 2021-01-23 23:57 | REPVR ---
PROCEDURE INFORMATION: Exam: CTA Chest With Contrast Exam date and time: 01/23/2021 11:06 PM Age: 40 years old Clinical indication: Other: Resp distress; Additional info: Rule out pe TECHNIQUE: Imaging protocol: Computed tomographic angiography of the chest with contrast. Axial, coronal and sagittal reformatted images were created and reviewed. 3D rendering (Not supervised by radiologist): MIP and/or 3D reconstructed images were created by the technologist. Radiation optimization: All CT scans at this facility use at least one of these dose optimization techniques: automated exposure control; mA and/or kV adjustment per patient size (includes targeted exams where dose is matched to clinical indication); or iterative reconstruction. Contrast material: ISO; Contrast volume: 75 ml; Contrast route: INTRAVENOUS (IV); COMPARISON: CT Chest with contrast 03/29/2020 10:28 AM FINDINGS: Pulmonary arteries: Contrast opacification satisfactory. No intraluminal filling defect. Aorta: Unremarkable. No aneurysm or dissection. Lungs: Mild right greater than left central peribronchial thickening, suggestive of airway inflammation. Nonspecific subsegmental right lower lobe consolidation. Pleural spaces: Small right pleural effusion with associated pleural thickening, similar to prior. No pneumothorax. Heart: Mild cardiomegaly. No pericardial effusion. Lymph nodes: No pathologically enlarged lymph nodes. Stomach and bowel: Partially visualized gastrojejunostomy tube. Findings suggestive of prior Don fundoplication. Fat containing hiatal hernia. Bones/joints: No acute osseous abnormality. Mild degenerative changes. Chronic deformity of the right glenohumeral joint. Soft tissues: Unremarkable. IMPRESSION: 1. No CT evidence of pulmonary embolism. 2. Small right pleural effusion with associated pleural thickening, similar to prior. 3. Nonspecific subsegmental right lower lobe consolidation, compatible with atelectasis versus pneumonia/aspiration. 4. Mild right greater than left central peribronchial thickening, suggestive of airway inflammation. 5. Additional findings, as above. Electronically signed by: Daniel Gay On 01/23/2021 23:56:48 PM
[2021-01-24] MEDS ORDERED: GLUCAGON INJ 1MG VIAL SC PRN (00:20)
[2021-01-24] MEDS ORDERED: GLUCOSE 4GM CHEW TABLET PO PRN (00:20)
[2021-01-24] MEDS ORDERED: DEXTROSE 50% 50 ML SYRINGE IV PRN (00:20)
[2021-01-24] MEDS ORDERED: D5W/0.45% SODIUM CHLORIDE 1,000 ML IV SCH (00:20)
[2021-01-24] MEDS ORDERED: cefTRIAXone SOD 2 GM in D5W MINI-BAG PLUS 50 ML IV SCH (01:00)
[2021-01-24] MEDS ORDERED: LEVALBUTEROL 1.25 MG/0.5 ML CONCENTRATE NEB INH PRN (01:25)
[2021-01-24] MEDS ORDERED: guaiFENesin SYRUP 200 MG/10 ML UDC PO PRN (01:30)
[2021-01-24] MEDS ORDERED: DOCUSATE SOD LIQ 100MG/10ML UDC GT PRN (01:30)
--- NOTE | 2021-01-24 01:33 | HPEPDOC ---
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 As patient is nonverbal, history is obtained by [facility] staff member at bedside, ED staff and the chart. Patient has apparently been needing more nebulizer treatments and eventually had to be put on 4L o2 nasal cannula at [facility] which prompted her presentation at our ED. Staff state that she frequently gets aspiration pna despite being NPO at the home and only receiving tube feedings. Staff deny noticing any vomiting, diarrhea, constipation, rash. Staff state that patient was hypothermic upon arrival, and thus have put extra blankets and a heat lamp on the patient.] PAST MEDICAL HISTORY: 1. [See HPI PAST SURGICAL HISTORY: 1. [G tube placement]. 2. [J Tube placement]. SOCIAL HISTORY: [facility] Resident. No tobacco/alcohol/drug use FAMILY HISTORY: Unable to obtain d/t mentation ALLERGIES: Please see below. REVIEW OF SYSTEMS: Unable to obtain d/t mentation. HOME MEDICATIONS: Please see below. PHYSICAL EXAMINATION: VITAL SIGNS: Please see below. GENERAL APPEARANCE: [This is a 40 y/o female who is not oriented. Patient does not appear to be in any distress.]. HEENT: [No mass or lesion. Patient looks about the room freely. Nares patent. Oral mucosa moist.]. CARDIOVASCULAR: [Borderline sarbjit rate, regular rhythm. No murmurs, rubs, gallops]. LUNGS: [Decreased air flow b/l. Crackles appreciated in the RLL.]. ABDOMEN: [Soft, non distended]. MUSCULOSKELETAL: [B/l upper extremity contractures noted.]. EXTREMITIES: [Lower extremities free of edema. No overlying skin changes. Pulses intact.]. NEUROLOGICAL: [Patient not oriented.]. PSYCHIATRIC: [Patient not oriented.]. LABORATORY DATA: See below. IMAGING: [CXR: FINDINGS: Lungs: There is no radiographic evidence of infiltrate bilaterally. There is poor ventilation. Heart: Prominent cardiac silhouette is unchanged. Mediastinum: Mediastinal silhouette unremarkable. Pleural angles: Unremarkable.. Bones and soft tissues: Grossly unremarkable. IMPRESSION: No definite acute infiltrate. Poor ventilation. Vascular US: FINDINGS: Right deep veins: Unremarkable. The common femoral, femoral, popliteal and visualized calf veins are patent without thrombus. Normal Doppler waveforms. Normal compressibility and/or augmentation response. Right superficial veins: Saphenofemoral junction is patent without thrombus. Left deep veins: Unremarkable. The common femoral, femoral, popliteal and visualized calf veins are patent without thrombus. Normal Doppler waveforms. Normal compressibility and/or augmentation response. Left superficial veins: Saphenofemoral junction is patent without thrombus. Soft tissues: Unremarkable. IMPRESSION: No sonographic evidence of deep vein thrombosis. CTA Chest: FINDINGS: Pulmonary arteries: Contrast opacification satisfactory. No intraluminal filling defect. Aorta: Unremarkable. No aneurysm or dissection. Lungs: Mild right greater than left central peribronchial thickening, suggestive of airway inflammation. Nonspecific subsegmental right lower lobe consolidation. Pleural spaces: Small right pleural effusion with associated pleural thickening, similar to prior. No pneumothorax. Heart: Mild cardiomegaly. No pericardial effusion. Lymph nodes: No pathologically enlarged lymph nodes. Stomach and bowel: Partially visualized gastrojejunostomy tube. Findings suggestive of prior Don fundoplication. Fat containing hiatal hernia. Bones/joints: No acute osseous abnormality. Mild degenerative changes. Chronic deformity of the right glenohumeral joint. Soft tissues: Unremarkable. IMPRESSION: 1. No CT evidence of pulmonary embolism. 2. Small right pleural effusion with associated pleural thickening, similar to prior. 3. Nonspecific subsegmental right lower lobe consolidation, compatible with atelectasis versus pneumonia/aspiration. 4. Mild right greater than left central peribronchial thickening, suggestive of airway inflammation. 5. Additional findings, as above. ] MICROBIOLOGY: Please see below. ASSESSMENT: [This is a 40 y/o female nonverbal resident of [facility] with a pmh of spastic quadriplegia 2/2 cerebral palsy, HFpEF, epilepsy on keppra, recurrent aspiration pna, developmental dx, recurrent hypothermia, g tube and j tube placement and asthma who was brought to the ED by [facility] staff after they noticed patient having increased work of breathing and O2 sats of "low 80s and high 70s" on pulse oximetry.]. . PLAN: 1. [Aspiration PNA - Recurrent. Patient likely aspirated d/t mentation. Will perform swallow study while inpatient. - Begin rocephin/doxy/flagyl for coverage - Suctioning - Elevate hob - Will begin ivf on the floor - supplemental o2 titrated to >92 - NPO Diet - will continue tube feeds - admit to med surg for abx 2. Asthma - patient does not appear to be in markus exacerbation - will give scheduled xopenex nebs with prn as needed - no need for steroids at this time - continue zyrtec, guaifenesin 3. Epilepsy - continue keppra 4. CHF - patient no volume overloaded 5. Spastic quadriplegia 2/2 cerebral palsy - stable, complicated care - turn and position patient 6. GERD - continue famotidine DVT prophylaxis - mechanical ]. Vital Signs Vital Signs Date Time Temp Pulse Resp B/P (MAP) Pulse Ox O2 Delivery O2 Flow Rate FiO2 01/24/21 00:30 58 93 Nasal Cannula 2.0 01/24/21 00:01 130/62 (84) 01/23/21 22:15 93.2 19 Laboratory Data Labs 24H Laboratory Tests 2 01/23/21 16:22: Immature Granulocyte % (Auto) 0.0, Neutrophils (%) (Auto) 52.7, Lymphocytes (%) (Auto) 36.8, Monocytes (%) (Auto) 8.6H, Eosinophils (%) (Auto) 1.7, Basophils (%) (Auto) 0.2, Neutrophils # (Auto) 2.1, Lymphocytes # (Auto) 1.5, Monocytes # (Auto) 0.4, Eosinophils # (Auto) 0.1, Basophils # (Auto) 0.0, Nucleated Red Blood Cells % (auto) 0.0, Anion Gap 3L, Glomerular Filtration Rate > 60.0, Calcium Level 8.3L, Total Bilirubin 0.2, Direct Bilirubin < 0.1, Aspartate Amino Transf (AST/SGOT) 46H, Alanine Aminotransferase (ALT/SGPT) 68, Alkaline Phosphatase 213H, Total Creatine Kinase 52, Creatine Kinase MB 2.8, Creatine K inase MB Relative Index 5.38H, Troponin I < 0.02, LK-Wrw-[id number]-Type Natriuretic Peptide 25, Total Protein 6.9, Albumin 2.7L, Albumin/Globulin Ratio 0.6L, Thyroid Stimulating Hormone (TSH) 2.030 01/23/21 16:54: 01/23/21 19:24: D-Dimer, Quantitative 723.28H 01/23/21 23:37: POC pH (Misc Panel) 7.311L, POC Base Excess (Misc Panel) 8.0H, POC Saturated Percent O2 (Misc) 100H, POC pO2 (Misc Panel) 284.0H, POC pCO2 (Misc Panel) 67.1*H, POC HCO3 (Misc Panel) 33.8H, POC Total CO2 (Misc Panel) 36.0H CBC/BMP Laboratory Tests 01/23/21 16:22 Microbiology Microbiology 01/23/21 Respiratory Virus Panel (PCR) (SUSAN) - Final, Complete Home Medications Scheduled Benzoyl Peroxide (Benzoyl Peroxide) 10 % Cleanser, 1 DOSE TOP BID APPLY TO FACE, EARS AND WASH. Cetirizine HCl (Cetirizine HCl) 10 Mg Tablet, 10 MG GT QHS Clindamycin Phosphate (Clindagel) 1 % Gel, 1 DOSE TOP BID TO FACE, UNDERARMS AND BEHIND EARS Clorazepate Dipotassium (Tranxene T-Tab) 7.5 Mg Tab, 7.5 MG GT BID Cyproheptadine HCl (Cyproheptadine HCl) 4 Mg Tab, 8 MG GT TID Famotidine (Famotidine) 20 Mg Tablet, 10 MG PO BID Ipratropium Powersite (Atrovent Hfa) 12.9 Gm Hfa.aer.ad, 1 PUFF INH QID Lacosamide (Vimpat) 10 Mg/Ml Caroline, 5 ML GT QAM Lacosamide (Vimpat) 10 Mg/Ml Caroline, 7.5 ML GT QHS Lactose-Reduced Food/Fiber (Jevity 1.2 Cedric Liquid) 237 Ml Liquid, 2 CAN GT QPM Levalbuterol HCl (Levalbuterol HCl) 1.25 Mg/3 Ml Neb, 1.25 MG INH QID MAY MIX WITH IPRATROPIUM Levetiracetam (Levetiracetam) 500 Mg/5 Ml Caroline, 500 MG GT DAILY Nystatin (Nystatin Powder) 100,000 Unit/Gm Pow, 1 DOSE TOP BID APPLIED TO GROIN AREA Polyethylene Glycol 3350 (Miralax) 1 Pow Pow, 17 GM GT QPM HOLD FOR LOOSE STOOLS Protein Supplement (Promod) 946 Ml Liquid, 60 ML GT QHS MIX WITH 30 CC OF WATER Scopolamine (Transderm-Scop) 1.5 Mg Dis, 1.5 MG TD Q3RD Wheat Dextrin (Benefiber) 1 Each Powd.pack, 1 POW GT TID Scheduled PRN Docusate Sodium (Docusate Sodium) 50 Mg/5 Ml Liq, 150 MG GT ASDIRECTED PRN for CONSTIPATION BID IF NO BM IN MORE THAN 2 DAYS. REPEAT IF NO BM MORE THAN 3 DAYS Guaifenesin (Guaifenesin) 100 Mg/5 Ml Liquid, 10 ML PO Q4H PRN for CHEST CONGESTION Ipratropium Powersite (Atrovent Hfa) 12.9 Gm Hfa.aer.ad, 1 PUFF INH Q2H PRN for SHORTNESS OF BREATH Ketotifen Fumarate (Zaditor) 5 Ml Drops, 1-2 DROP OU BID PRN for ITCHY EYES Levalbuterol Hydrochloride (Xopenex Hfa) 15 Gm Hfa.aer.ad, 1 VIAL NEB Q2H PRN for SOB/WHEEZING Allergies Coded Allergies: Penicillins (Verified Allergy, Intermediate, rash, 01/23/21) PT HAS TOLERATE MX CEPHALOSPORINS IN THE PAST WITHOUT ISSUE clarithromycin (Verified Allergy, Intermediate, rash , 01/23/21) increase tregrtol level clavulanic acid (Verified Allergy, Intermediate, rash, 01/23/21) corticotropin (Verified Allergy, Intermediate, rash, 01/23/21) adrenocorticotrophic hormone (ACTH) lamotrigine (Verified Allergy, Intermediate, blisters/rash, 01/23/21) Influenza Virus Vaccines (Verified Allergy, Unknown, 01/23/21) amoxicillin (Verified Allergy, Unknown, 01/23/21) grapefruit (Verified Allergy, Unknown, 01/23/21) tetanus and diphtheria toxoids (Verified Allergy, Unknown, 01/23/21) A-FIB/CHADSVASC A-FIB History Current/History of A-Fib/PAF?: No APOLLO QUIROZ Jan 24, 2021 01:33
--- NOTE | 2021-01-24 02:16 | HPEPDOC ---
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 In the emergency room patient was found to have right lower lobe aspiration pneumonitis, patient was not hypoxic without fever or leukocytosis. She has persistent hypothermia with normal TSH. Patient will be admitted as an inpatient for the following acute issues: Malclearance of secretions -Suction every 4 hourly and as needed every 15 minutes. Acapella and incentive spirometry Recurrent aspiration pneumonia -Keep O2 sat greater than 90%. -IV ceftriaxone doxycycline and Flagyl -Nebulizers every 4 and nightly hourly as needed -head of bed elevation greater than 30 degrees at all times Aspiration - on tube feedings via gastrojejunostomy tube Spastic cerebral palsy with quadriparesis Profound mental retardation Chronic hypothermia -Rubina farias Chronically elevated liver function test due to chronic anticonvulsant use History of recurrent urinary tract infections -Negative UA Acneiform dermatitis Osteopenia History of pericardial effusion status post drainage 2018 -CT chest has no pericardial effusion. Vital Signs Vital Signs Date Time Temp Pulse Resp B/P (MAP) Pulse Ox O2 Delivery O2 Flow Rate FiO2 01/24/21 00:30 58 93 Nasal Cannula 2.0 01/24/21 00:01 130/62 (84) 01/23/21 22:15 93.2 19 Laboratory Data Labs 24H Laboratory Tests 2 01/23/21 16:22: Immature Granulocyte % (Auto) 0.0, Neutrophils (%) (Auto) 52.7, Lymphocytes (%) (Auto) 36.8, Monocytes (%) (Auto) 8.6H, Eosinophils (%) (Auto) 1.7, Basophils (%) (Auto) 0.2, Neutrophils # (Auto) 2.1, Lymphocytes # (Auto) 1.5, Monocytes # (Auto) 0.4, Eosinophils # (Auto) 0.1, Basophils # (Auto) 0.0, Nucleated Red Blood Cells % (auto) 0.0, Anion Gap 3L, Glomerular Filtration Rate > 60.0, Calcium Level 8.3L, Total Bilirubin 0.2, Direct Bilirubin < 0.1, Aspartate Amino Transf (AST/SGOT) 46H, Alanine Aminotransferase (ALT/SGPT) 68, Alkaline Phosphatase 213H, Total Creatine Kinase 52, Creatine Kinase MB 2.8, Creatine Kinase MB Relative Index 5.38H, Troponin I < 0.02, CZ-Adk-H-Type Natriuretic Peptide 25, Total Protein 6.9, Albumin 2.7L, Albumin/Globulin Ratio 0.6L, Thyroid Stimulating Hormone (TSH) 2.030 01/23/21 16:54: 01/23/21 19:24: D-Dimer, Quantitative 723.28H 01/23/21 23:37: POC pH (Misc Panel) 7.311L, POC Base Excess (Misc Panel) 8.0H, POC Saturated Percent O2 (Misc) 100H, POC pO2 (Misc Panel) 284.0H, POC pCO2 (Misc Panel) 67.1*H, POC HCO3 (Misc Panel) 33.8H, POC Total CO2 (Misc Panel) 36.0H CBC/BMP Laboratory Tests 01/23/21 16:22 Microbiology Microbiology 01/23/21 Respiratory Virus Panel (PCR) ([facility]) - Final, Complete Home Medications Scheduled Benzoyl Peroxide (Benzoyl Peroxide) 10 % Cleanser, 1 DOSE TOP BID APPLY TO FACE, EARS AND WASH. Cetirizine HCl (Cetirizine HCl) 10 Mg Tablet, 10 MG GT QHS Clindamycin Phosphate (Clindagel) 1 % Gel, 1 DOSE TOP BID TO FACE, UNDERARMS AND BEHIND EARS Clorazepate Dipotassium (Tranxene T-Tab) 7.5 Mg Tab, 7.5 MG GT BID Cyproheptadine HCl (Cyproheptadine HCl) 4 Mg Tab, 8 MG GT TID Famotidine (Famotidine) 20 Mg Tablet, 10 MG PO BID Ipratropium [place] (Atrovent Hfa) 12.9 Gm Hfa.aer.ad, 1 PUFF INH QID Lacosamide (Vimpat) 10 Mg/Ml Caroline, 5 ML GT QAM Lacosamide (Vimpat) 10 Mg/Ml Caroline, 7.5 ML GT QHS Lactose-Reduced Food/Fiber (Jevity 1.2 Cedric Liquid) 237 Ml Liquid, 2 CAN GT QPM Levalbuterol HCl (Levalbuterol HCl) 1.25 Mg/3 Ml Neb, 1.25 MG INH QID MAY MIX WITH IPRATROPIUM Levetiracetam (Levetiracetam) 500 Mg/5 Ml Caroline, 500 MG GT DAILY Nystatin (Nystatin Powder) 100,000 Unit/Gm Pow, 1 DOSE TOP BID APPLIED TO GROIN AREA Polyethylene Glycol 3350 (Miralax) 1 Pow Pow, 17 GM GT QPM HOLD FOR LOOSE STOOLS Protein Supplement (Promod) 946 Ml Liquid, 60 ML GT QHS MIX WITH 30 CC OF WATER Scopolamine (Transderm-Scop) 1.5 Mg Dis, 1.5 MG TD Q3RD Wheat Dextrin (Benefiber) 1 Each Powd.pack, 1 POW GT TID Scheduled PRN Docusate Sodium (Docusate Sodium) 50 Mg/5 Ml Liq, 150 MG GT ASDIRECTED PRN for CONSTIPATION BID IF NO BM IN MORE THAN 2 DAYS. REPEAT IF NO BM MORE THAN 3 DAYS Guaifenesin (Guaifenesin) 100 Mg/5 Ml Liquid, 10 ML PO Q4H PRN for CHEST CONGESTION Ipratropium [place] (Atrovent Hfa) 12.9 Gm Hfa.aer.ad, 1 PUFF INH Q2H PRN for SHORTNESS OF BREATH Ketotifen Fumarate (Zaditor) 5 Ml Drops, 1-2 DROP OU BID PRN for ITCHY EYES Levalbuterol Hydrochloride (Xopenex Hfa) 15 Gm Hfa.aer.ad, 1 VIAL NEB Q2H PRN for SOB/WHEEZING Allergies Coded Allergies: Penicillins (Verified Allergy, Intermediate, rash, 01/23/21) PT HAS TOLERATE MX CEPHALOSPORINS IN THE PAST WITHOUT ISSUE clarithromycin (Verified Allergy, Intermediate, rash , 01/23/21) increase tregrtol level clavulanic acid (Verified Allergy, Intermediate, rash, 01/23/21) corticotropin (Verified Allergy, Intermediate, rash, 01/23/21) adrenocorticotrophic hormone (ACTH) lamotrigine (Verified Allergy, Intermediate, blisters/rash, 01/23/21) Influenza Virus Vaccines (Verified Allergy, Unknown, 01/23/21) amoxicillin (Verified Allergy, Unknown, 01/23/21) grapefruit (Verified Allergy, Unknown, 01/23/21) tetanus and diphtheria toxoids (Verified Allergy, Unknown, 01/23/21) A-FIB/CHADSVASC A-FIB History Current/History of A-Fib/PAF?: No Current PO Anticoag Therapy: No Age/Risk Factor Scoring CHADSVASC: CHADSVASC Response (Comments) Value Age Risk Factor Age < 65 years old 0 Gender Risk Factor Female 1 Hx of CHF No 0 Hx of HTN No 0 Hx of Stroke/TIA/or VTE No 0 Hx of Diabetes No 0 Hx of Vascular Disease No 0 Total 1 Treatment Treatment ordered: NONE CHRISTOPHER INFANTE MD Jan 24, 2021 02:16
[2021-01-24] MEDS ORDERED: PILL CUTTER 1 EACH XX PRN (02:25)
[2021-01-24] MEDS: LEVALBUTEROL 1.25 MG/0.5 ML CONCENTRATE NEB INH SCH ×5 (02:40→21:30)
[2021-01-24] MEDS: DOXYCYCLINE HYCLATE 100 MG in D5W MINI-BAG PLUS 100 ML IV SCH ×2 (02:50→14:47)
[2021-01-24 03:50] VITALS: BP 117/63
[2021-01-24] MEDS: metroNIDAZOLE 500 MG in IV 1 EA IV SCH ×2 (04:29→11:57)
[2021-01-24 07:37] LABS: BASO % 0.2 % (0.0-1.0); EOS # 0.1 10^3/uL (0.0-0.5); EOS % 1.1 % (0.0-3.0); HEMATOCRIT 40.1 % (36.0-47.0); LYMPH # 1.1 10^3/uL (1.5-5.0); LYMPH % 16.3 % (24.0-44.0); MEAN CORPUSCULAR HEMOGLOBIN 34.6 pg (27.0-33.0); MEAN CORPUSCULAR HGB CONC 32.4 g/dl (32.0-36.5); MEAN CORPUSCULAR VOLUME 106.6 fl (80.0-96.0); MONO # 0.6 10^3/uL (0.0-0.8); MONO % 8.6 % (2.0-8.0); NEUTROPHILS # 4.8 10^3/uL (1.5-8.5); NEUTROPHILS % 73.5 % (36.0-66.0); PLATELET COUNT, AUTOMATED 226 10^3/uL (150-450); RED BLOOD COUNT 3.76 10^6/uL (4.00-5.40); WHITE BLOOD COUNT 6.5 10^3/uL (4.0-10.0)
[2021-01-24 08:03] LABS: ALT/SGPT 69 U/L (12-78); BILIRUBIN,TOTAL 0.2 MG/DL (0.2-1.0); BLOOD UREA NITROGEN 22 MG/DL (7-18); C REACTIVE PROTEIN QUANTITATIV 3.95 MG/DL (0.00-0.30); CARBON DIOXIDE LEVEL 29 MEQ/L (21-32); CHLORIDE LEVEL 108 MEQ/L (98-107); CREATININE FOR GFR 0.47 MG/DL (0.55-1.30); GLOMERULAR FILTRATION RATE > 60.0 (>58); GLUCOSE, FASTING 74 MG/DL (70-100); POTASSIUM SERUM 4.3 MEQ/L (3.5-5.1); PREALBUMIN 21.8 MG/DL (20.0-40.0); SODIUM LEVEL 142 MEQ/L (136-145); TOTAL PROTEIN 7.6 GM/DL (6.4-8.2)
[2021-01-24 08:08] LABS: ERYTHROCYTE SEDIMENTATION RATE 92 mm/hr (0-20)
[2021-01-24] MEDS ORDERED: NON-FORMULARY 1 EA EA PEG SCH (09:00)
[2021-01-24] MEDS: levETIRAcetam ORAL SOLUTION 500 MG/5 ML UDC GT SCH (11:56)
[2021-01-24] MEDS: FAMOTIDINE 20 MG TAB PO SCH ×2 (11:56→22:49)
[2021-01-24] MEDS: CYPROHEPTADINE 4 MG TAB GT SCH ×3 (11:56→22:48)
[2021-01-24] MEDS: CLORAZEPATE 3.75 MG TAB GT SCH ×2 (11:57→22:48)
[2021-01-24] MEDS: LACOSAMIDE 50 MG TAB (VIMPAT) GT SCH ×2 (11:57→22:49)
[2021-01-24] MEDS: NYSTATIN 100,000 UNITS/GM TOPICAL PWD 15 GM TOP SCH ×2 (11:58→22:49)
[2021-01-24 14:00] VITALS: BP 118/71
--- NOTE | 2021-01-24 15:15 | IPNPDOC ---
Text Note Date of Service The patient was seen on 01/24/21. NOTE Subjective: No acute events overnight. Oxygen saturation 93% on room air, no fever or chills. Patient nonverbal Objective: GENERAL APPEARANCE: Nonverbal patient with cerebral palsy HEENT: no scleral icterus, no JVD, EOMI CARDIOVASCULAR: S1S2 LUNGS: Diminished lung sounds bilaterally ABDOMEN: soft & not tender w palpation MUSCULOSKELETAL: no cyanosis, no swelling INTEGUMENT: no generalized pallor NEUROLOGICAL: Nonverbal, not follows commands, speech not dysarthric Assessment and plan Patient 40 years old with past medical history of spastic cerebral palsy with quadriparesis profound mental retardation, seizure disorder, chronic hypothermia, recurrent aspiration pneumonia, status post PEG tube placement and tube feedings history of constrictive pericarditis presented from [facility] with hypoxia saturations of 70% before suctioning and only increasing to 83% after suctioning. Dyspnea most likely secondary to bronchial obstruction due to secretion secondary to aspiration Suction as needed CT showed No CT evidence of pulmonary embolism. Small right pleural effusion with associated pleural thickening, similar to prior. Nonspecific subsegmental right lower lobe consolidation, compatible with atelectasis versus pneumonia/aspiration. Patient afebrile, does not have leukocytosis, procalcitonin negative. I will discontinue antibiotic therapy, unlikely patient has aspiration pneumonia Asthma Continue inhalers Epilepsy Continue Keppra Diastolic CHF Patient euvolemic Continue home meds Spastic quadriplegia 2/2 cerebral palsy Continue home meds GERD - continue famotidine VS,Fishbone, I+O VS, Fishbone, I+O Laboratory Tests 01/23/21 16:22 01/24/21 07:14 Vital Signs Date Time Temp Pulse Resp B/P (MAP) Pulse Ox O2 Delivery O2 Flow Rate FiO2 01/24/21 14:00 96.7 62 19 118/71 (87) 95 Room Air 01/24/21 03:30 2.0 I&O- Last 24 Hours up to 6 AM 01/24/21 06:00 Intake Total 550 ml Balance 550 ml JOANN LUNA DO Jan 24, 2021 15:15
[2021-01-24] MEDS: MIRALAX *UNIT DOSE* 17GM PACKET GT SCH (21:00)
[2021-01-24 22:00] VITALS: BP 121/70
[2021-01-24] MEDS: CETIRIZINE (ZyrTEC) 10 MG TAB GT SCH (22:49)
[2021-01-25] MEDS: LEVALBUTEROL 1.25 MG/0.5 ML CONCENTRATE NEB INH SCH ×7 (00:53→23:59)
[2021-01-25 05:23] VITALS: BP 118/83
[2021-01-25 06:13] LABS: BASO % 0.1 % (0.0-1.0); EOS # 0.1 10^3/uL (0.0-0.5); EOS % 0.5 % (0.0-3.0); HEMATOCRIT 40.8 % (36.0-47.0); HEMOGLOBIN 13.2 g/dl (12.0-15.5); LYMPH # 0.9 10^3/uL (1.5-5.0); LYMPH % 6.3 % (24.0-44.0); MEAN CORPUSCULAR HEMOGLOBIN 34.6 pg (27.0-33.0); MEAN CORPUSCULAR HGB CONC 32.4 g/dl (32.0-36.5); MEAN CORPUSCULAR VOLUME 107.1 fl (80.0-96.0); MONO # 0.7 10^3/uL (0.0-0.8); MONO % 5.3 % (2.0-8.0); NEUTROPHILS % 87.5 % (36.0-66.0); PLATELET COUNT, AUTOMATED 224 10^3/uL (150-450); RED BLOOD COUNT 3.81 10^6/uL (4.00-5.40); WHITE BLOOD COUNT 13.7 10^3/uL (4.0-10.0)
[2021-01-25 06:30] LABS: BLOOD UREA NITROGEN 18 MG/DL (7-18); CALCIUM LEVEL 9.2 MG/DL (8.5-10.1); CARBON DIOXIDE LEVEL 28 MEQ/L (21-32); CHLORIDE LEVEL 112 MEQ/L (98-107); CREATININE FOR GFR 0.53 MG/DL (0.55-1.30); GLOMERULAR FILTRATION RATE > 60.0 (>58); GLUCOSE, FASTING 104 MG/DL (70-100); POTASSIUM SERUM 4.4 MEQ/L (3.5-5.1); SODIUM LEVEL 145 MEQ/L (136-145)
[2021-01-25 08:30] VITALS: O2SAT 91
[2021-01-25 08:37] LABS: ABG BASE EXCESS 0.8 (-2.0-2.0); ABG HCO3 25.6 MEQ/L (22.0-26.0); ABG O2 SATURATION 91.1 % (95.0-99.0); ABG PARTIAL PRESSURE CO2 41.8 mmHg (35.0-45.0); ABG PARTIAL PRESSURE O2 59.9 mmHg (75.0-100.0); ABG TOTAL CO2 26.9 MEQ/L (22.0-29.0); ABG pH (ARTERIAL) 7.405 UNITS (7.350-7.450)
[2021-01-25] MEDS ORDERED: DOXYCYCLINE HYCLATE 100 MG in D5W MINI-BAG PLUS 100 ML IV SCH (09:00)
[2021-01-25] MEDS: cefTRIAXone SOD 2 GM in D5W MINI-BAG PLUS 50 ML IV SCH (09:32)
[2021-01-25] MEDS: NYSTATIN 100,000 UNITS/GM TOPICAL PWD 15 GM TOP SCH ×2 (09:33→22:43)
--- NOTE | 2021-01-25 10:19 | REP ---
INDICATION: Pneumonia. COMPARISON: AP lateral chest and CT 01/23/2021 TECHNIQUE: AP portable seated FINDINGS: Lungs are hypoinflated. Coarsening of interstitial markings noted bilaterally. Patchy basilar opacities on the left greater than right on today's study. Cardiac silhouette mildly prominent even allowing for AP portable and hypoinflated chest. No gross effusion visible. Hypoinflation and portable technique limit evaluation of posterior lower lung zones. Degenerative changes in the spine. There is an old ununited fracture of the proximal humerus in the surgical neck. This is unchanged. The upper abdomen gas distends the colon and there is a jejunostomy tube visible. IMPRESSION: 1. Hypoinflated chest with coarsening of interstitial markings and patchy perihilar and infrahilar infiltrates left greater than right. Posterior lower lung zones are poorly evaluated. No gross effusion visible, but again limited exam. 2. Heart size prominent. Jejunostomy tube noted. Ununited proximal humeral fracture, stable. <Electronically signed by Fermín Hansen > 01/25/21 [id number]
--- NOTE | 2021-01-25 10:28 | REP ---
INDICATION: j tube displacement?. COMPARISON: 04/04/2020. TECHNIQUE: Single portable view abdomen and pelvis. FINDINGS: Scattered air is visualized throughout the nondilated colon. Bowel gas pattern is nonspecific. Jejunostomy tube projects over the left mid abdomen. There is contrast material in the bladder. Dysplastic hips are again seen. IMPRESSION: Nonspecific bowel gas pattern. Jejunostomy tube projects over the left mid abdomen. <Electronically signed by Aydin Walker > 01/25/21 1024
[2021-01-25 11:00] VITALS: BP 114/69
--- NOTE | 2021-01-25 11:56 | IPNPDOC ---
Text Note Date of Service The patient was seen on 01/25/21. NOTE Subjective: Yesterday when we restarted tube feeding patient developed bilateral crackles and dyspnea, J-tube feeding was stopped. In the morning patient developed 1 episode of hypoxia with oxygen saturation around low 80s. Patient had multiple suctions, oxygen saturation improved to 92%. GENERAL APPEARANCE: Nonverbal patient with cerebral palsy HEENT: no scleral icterus, no JVD, EOMI CARDIOVASCULAR: Bilateral crackles LUNGS: Diminished lung sounds bilaterally ABDOMEN: soft & not tender w palpation MUSCULOSKELETAL: no cyanosis, no swelling INTEGUMENT: no generalized pallor NEUROLOGICAL: Nonverbal, not follows commands, speech not dysarthric Assessment and plan Patient 40 years old with past medical history of spastic cerebral palsy with quadriparesis profound mental retardation, seizure disorder, chronic hypothermia, recurrent aspiration pneumonia, status post PEG tube placement and tube feedings history of constrictive pericarditis presented from [facility] with h ypoxia saturations of 70% before suctioning and only increasing to 83% after suctioning. Dyspnea aspiration pneumonitis most likely secondary to bronchial obstruction due to secretion secondary to as piration Suction as needed CT showed No CT evidence of pulmonary embolism. Small right pleural effusion with associated pleural thickening, similar to prior. Nonspecific subsegmental right lower lobe consolidation, compatible with atelectasis versus pneumonia/aspiration. I discussed the case with interventional radiologist Dr. Weeks, she recommended KUB and CT scan of abdomen and pelvis. KUB shows Nonspecific bowel gas pattern. Jejunostomy tube projects over the left mid abdomen. Await CT scan. There is concern for ileus Due to leukocytosis and aspiration yesterday and in the morning I restarted antibiotics ceftriaxone IV and doxycycline IV. Asthma Continue inhalers Epilepsy Continue Keppra Diastolic CHF Patient euvolemic Continue home meds Spastic quadriplegia 2/2 cerebral palsy Continue home meds GERD - continue famotidine VS,Fishbone, I+O VS, Fishbone, I+O Laboratory Tests 01/25/21 05:49 Vital Signs Date Time Temp Pulse Resp B/P (MAP) Pulse Ox O2 Delivery O2 Flow Rate FiO2 01/25/21 08:30 91 Venturi Mask 15.0 50 01/25/21 05:23 96.9 87 22 118/83 (95) I&O- Last 24 Hours up to 6 AM 01/25/21 06:00 Intake Total 100 ml Balance 100 ml JOANN LUNA DO Jan 25, 2021 11:56
--- NOTE | 2021-01-25 12:21 | REP ---
INDICATION: J-tube displacement?. COMPARISON: CT 11/20/2020, CT angio chest 01/24/2020 TECHNIQUE: Noncontrast scanning through the chest with coronal and sagittal reconstructions. FINDINGS: CT abdomen: The lung bases show of small right pleural effusion with some subsegmental atelectatic changes and patchy atelectasis adjacent. There is some compressive atelectatic change deep sulcus of the left lower lobe versus patchy infiltrate. No definite left effusion. Heart is mildly enlarged as before. There is no pericardial thickening or effusion. Thoracic and abdominal aorta shows scattered calcifications without aneurysm. Left upper abdominal wall insertion of PEG tube noted with the tip terminating in the region of the proximal jejunum. The liver, spleen, adrenal glands and pancreas are unremarkable. There is hyperdense bile in the gallbladder, likely vicarious excretion from IV contrast related to CT angiogram 2 days ago. There is a nonobstructing stone in the lower pole of the left kidney about 10 mm and unchanged. Neither kidney shows hydronephrosis or solid mass there is no perinephric edema. There is no hydroureter or ureteral calcification on either side. Chronic gas-filled and distended colon loops are unchanged with gas scattered throughout small bowel loops. There are no signs of perforation or free air in the abdomen or pelvis. There is no periaortic or other retroperitoneal pathologic sized lymphadenopathy. No mesenteric nodes or masses. Bones show dextroconvex thoracolumbar scoliosis and degenerative facet changes lower lumbar spine. CT pelvis: Bladder shows the hyperdense urine consistent with the IV contrast from CT angiogram 2 days ago. No hydronephrosis or hydroureter. Uterus anteverted not enlarged. No pelvic mass or free fluid. The abdominal portion of colon shows no sign of colitis or diverticulitis. Rectosigmoid and filled with the semi solid or liquid stool. This same finding is seen scattered throughout the colon in smaller amounts. Small bowel loops are grossly unremarkable in the abdomen and pelvis. No ventral or inguinal hernia nor inguinal adenopathy. The bone windows show chronic hip dislocations and pseudo-acetabulae, superior to the lime acetabulum. IMPRESSION: 1. Subsegmental atelectatic change with small effusion on the right and some increase in basilar atelectasis or patchy infiltrate on the left compared to CTA chest 01/23/2021. 2. Chronic distension of the colon unchanged. No obstruction. Scattered gas and fluid in small bowel loops, no obstruction. No ascites or free air. No adenopathy. 3. Hyperdense bile from vicarious excretion IV contrast from CT 2 days ago, dense urine in the bladder from IV contrast 2 days ago. No hydronephrosis or hydroureter. 4. PEG tube gastrojejunostomy with tip in the proximal jejunum unchanged. 5. Chronic hip dysplasia and dextro rotatory curve thoracolumbar spine. 6. Solid organs upper abdomen unremarkable. <Electronically signed by Fermín Hansen > 01/25/21 [id number]
[2021-01-25] MEDS: FAMOTIDINE 20 MG TAB PO SCH ×2 (12:23→21:27)
[2021-01-25] MEDS: LACOSAMIDE 50 MG TAB (VIMPAT) GT SCH ×2 (12:24→21:27)
[2021-01-25] MEDS: levETIRAcetam ORAL SOLUTION 500 MG/5 ML UDC GT SCH (12:24)
[2021-01-25] MEDS: CYPROHEPTADINE 4 MG TAB GT SCH ×3 (12:24→21:26)
--- NOTE | 2021-01-25 15:05 | CCN ---
CRITICAL CARE NOTE DATE: 01/24/2021 I was called to the intensive care unit to evaluate this 40-year-old female for hypoxic respiratory failure. She has a past history of cerebral palsy with quadriplegia, recurrent aspiration pneumonia episodes, mental retardation, seizures, urinary tract infections, and fibrosing pericarditis requiring pericardial window. She was admitted 2 days ago, presumably due to aspiration pneumonia, which was resulting in low oxygen saturations. She had an episode earlier in the day where her oxygen saturations dropped once again, and she has now been transferred to the intensive care unit. At bedside she is nonverbal in moderate respiratory distress. Temperature is 96, pulse rate 88, respirations 28, blood pressure 118/83, oxygen saturation 91% on 50% oxygen. HEENT: Her oral and nasal mucosa are pink. There is moderate periodontal disease. She has a cushingoid appearance. Is nonverbal. Neck is quite quach. No appreciate stridor. No adenopathy in the neck. Heart sounds are regular, somewhat distant. Breath sounds reveal bilateral large airway rhonchi. Abdomen is soft with gastrostomy (G) tube and jejunostomy (J) tube in place. The G tube suction has now been placed to a drainage bag, and there are some secretions in the bag. There are no appreciable bowel sounds. The extremities show contracture and deformities. DIAGNOSTIC STUDIES: I reviewed multiple imaging studies, which show chronic changes in the lungs, small right pleural effusions appreciated on the most recent CT with chronic atelectasis. Her white cell count is 13.7 with a differential of 87% neutrophils, hemoglobin 13.2, hematocrit 40.8, platelet count 224,000. Electrolytes are sodium 145, potassium 4.4, chloride 112, CO2 of 28. BUN is 18, creatinine 0.53, glucose 104. The arterial blood gases show a pH of 7.40, pCO2 of 41, pO2 of 59. The primary problem requiring critical attention is acute hypoxic respiratory failure. Will change oxygen to an aerosol delivery system and maintain a saturation of 90% plus. PaCO2 is normal at this point, and so further ventilatory support is not needed. I will, however, hold benzodiazepines, as they may be suppressing her respiratory drive. Aspiration events. Mucolytics have been prescribed. Antibiotics with broad-spectrum cephalosporin should be more than sufficient given the patient's periodontal disease, pending culture if we can obtain one. Dysmotility. I would consider promotility agents if decompression of the gastrium is insufficient to prevent further aspiration events. Seizure disorder. There are three negative electroencephalograms on the chart. I would question this diagnosis, and if there is no evident basis and history, consider reducing the medications. Deep venous thrombosis (DVT) prophylaxis is being addressed with sequential hose. Patient's condition is critical. Care plan was reviewed with the patient's ICU nurse team at bedside, and the case was reviewed with the attending hospitalist. Seventy-six minutes was spent in the provision of bedside critical care and coordination, excluding any time for the performance of procedures.
[2021-01-25 16:00] VITALS: BP 113/59
[2021-01-25 20:00] VITALS: BP 118/73
[2021-01-25] MEDS: MIRALAX *UNIT DOSE* 17GM PACKET GT SCH (21:26)
[2021-01-25] MEDS: CETIRIZINE (ZyrTEC) 10 MG TAB GT SCH (22:43)
[2021-01-26] VITALS (11 sets, daily range): BP systolic 73–114; BP diastolic 46–67
[2021-01-26] MEDS: LEVALBUTEROL 1.25 MG/0.5 ML CONCENTRATE NEB INH SCH ×5 (03:57→20:02)
[2021-01-26 04:55] LABS: BASO % 0.2 % (0.0-1.0); EOS # 0.1 10^3/uL (0.0-0.5); EOS % 2.8 % (0.0-3.0); HEMATOCRIT 38.9 % (36.0-47.0); HEMOGLOBIN 12.3 g/dl (12.0-15.5); LYMPH # 1.6 10^3/uL (1.5-5.0); LYMPH % 37.9 % (24.0-44.0); MEAN CORPUSCULAR HEMOGLOBIN 34.6 pg (27.0-33.0); MEAN CORPUSCULAR HGB CONC 31.6 g/dl (32.0-36.5); MEAN CORPUSCULAR VOLUME 109.3 fl (80.0-96.0); MONO # 0.4 10^3/uL (0.0-0.8); MONO % 9.2 % (2.0-8.0); NEUTROPHILS # 2.2 10^3/uL (1.5-8.5); NEUTROPHILS % 49.7 % (36.0-66.0); PLATELET COUNT, AUTOMATED 187 10^3/uL (150-450); RED BLOOD COUNT 3.56 10^6/uL (4.00-5.40); WHITE BLOOD COUNT 4.3 10^3/uL (4.0-10.0)
[2021-01-26 05:27] LABS: BLOOD UREA NITROGEN 15 MG/DL (7-18); CALCIUM LEVEL 8.9 MG/DL (8.5-10.1); CARBON DIOXIDE LEVEL 28 MEQ/L (21-32); CHLORIDE LEVEL 109 MEQ/L (98-107); GLOMERULAR FILTRATION RATE > 60.0 (>58); GLUCOSE, FASTING 67 MG/DL (70-100); SODIUM LEVEL 144 MEQ/L (136-145)
[2021-01-26] MEDS ORDERED: ATROPINE SULF 1MG/10ML SYRINGE (J0461) IV PRN (08:55)
[2021-01-26] MEDS ORDERED: SCOPOLAMINE 1MG TRANSDERMAL PATCH TD SCH (09:00)
--- NOTE | 2021-01-26 09:56 | IPNPDOC ---
Text Note Date of Service The patient was seen on 01/26/21. NOTE Subjective: Patient is doing better today, her oxygenation improved and 100% on 2 L. We will titrated down GENERAL APPEARANCE: Nonverbal patient with cerebral palsy HEENT: no scleral icterus, no JVD, EOMI CARDIOVASCULAR: Bilateral crackles LUNGS: Diminished lung sounds bilaterally ABDOMEN: soft & not tender w palpation MUSCULOSKELETAL: no cyanosis, no swelling INTEGUMENT: no generalized pallor NEUROLOGICAL: Nonverbal, not follows commands, speech not dysarthric Assessment and plan Patient 40 years old with past medical history of spastic cerebral palsy with quadriparesis profound mental retardation, seizure disorder, chronic hypothermia, recurrent aspiration pneumonia, status post PEG tube placement and tube feedings history of constrictive pericarditis presented from [facility] with hypoxia saturations of 70% before suctioning and only increasing to 83% after suctioning. Dyspnea aspiration pneumonitis most likely secondary to bronchial obstruction due to secretion secondary to aspiration Suction as needed CT showed No CT evidence of pulmonary embolism. Small right pleural effusion with associated pleural thickening, similar to prior. Nonspecific subsegmental right lower lobe consolidation, compatible with atelectasis versus pneumonia/aspiration. I discussed the case with interventional radiologist Dr. Weeks, she recommended KUB and CT scan of abdomen and pelvis. KUB shows Nonspecific bowel gas pattern. Jejunostomy tube projects over the left mid abdomen. CT scan shows Left upper abdominal wall insertion of PEG tube noted with the tip terminating in the region of the proximal jejunum Dr. Sorto consulted patient he recommended continued ceftriaxone IV, adding motility agent and discontinue Keppra given no documented history of seizure disorder. Benzos on hold. Continue mucolytics Bradycardia Most likely secondary to chronic hypothermia Bear hugger, atropine as needed Asthma Continue inhalers Epilepsy After chart review with Dr. Sorto we did not find confirmation of epilepsy. Keppra discontinued Diastolic CHF Patient euvolemic Continue home meds Spastic quadriplegia 2/2 cerebral palsy Continue home meds GERD - continue famotidine VS,Fishbone, I+O VS, Fishbone, I+O Laboratory Tests 01/26/21 04:07 Vital Signs Date Time Temp Pulse Resp B/P (MAP) Pulse Ox O2 Delivery O2 Flow Rate FiO2 01/26/21 08:00 95.0 48 15 102/55 (71) 100 Nasal Cannula 2.0 01/25/21 08:30 50 I&O- Last 24 Hours up to 6 AM 01/26/21 06:00 Intake Total 150 ml Output Total 75 ml Balance 75 ml JOANN LUNA DO Jan 26, 2021 09:56
[2021-01-26] MEDS: NYSTATIN 100,000 UNITS/GM TOPICAL PWD 15 GM TOP SCH ×3 (10:00→20:58)
[2021-01-26] MEDS: METOCLOPRAMIDE INJ 10MG/2ML VIAL (J2765 PER 1) IV SCH ×3 (10:08→20:55)
[2021-01-26] MEDS: cefTRIAXone SOD 2 GM in D5W MINI-BAG PLUS 50 ML IV SCH (10:08)
[2021-01-26] MEDS: FAMOTIDINE 20 MG TAB PO SCH ×2 (10:09→20:55)
[2021-01-26] MEDS: LACOSAMIDE 50 MG TAB (VIMPAT) GT SCH ×2 (10:09→20:56)
[2021-01-26] MEDS: CYPROHEPTADINE 4 MG TAB GT SCH ×3 (10:09→20:56)
[2021-01-26] MEDS: HEPARIN SOD (PORCINE) 5000UNITS/ML 1ML VIAL/SYRINGE SQ SCH ×2 (10:29→20:56)
[2021-01-26] MEDS: SCOPOLAMINE 1MG TRANSDERMAL PATCH TD SCH (10:32)
--- NOTE | 2021-01-26 11:06 | CCN ---
PULMONARY CRITICAL CARE PROGRESS NOTE DATE: 01/26/2021 SUBJECTIVE: The patient is seen in the progressive care unit. This is hospital day #3. She was downgraded to the progressive care unit (PCU) after clearing secretions and improving oxygenation. PHYSICAL EXAMINATION: VITAL SIGNS: Her temperature is 95, pulse rate 48, respirations 15, blood pressure 102/55. INTAKE AND OUTPUT: Intake and output for the past 24 hours is 150 in, 75 out. Gastrostomy (G) tube drained 75 mL. HEENT: She is ill-appearing. Mucosa is moist. Neck is quach, supple. No adenopathy. Jugular veins are difficult to appreciate. HEART: Heart sounds are distant, but regular. LUNGS: Breath sounds are diminished. There are some rhonchi, but they are much improved over yesterday. No accessory muscle engagement with respiratory effort. ABDOMEN: Soft. Gastrostomy (G) tube, jejunostomy (J) tube in place. EXTREMITIES: Show contracture deformities. DIAGNOSTIC STUDIES: Her white cell count is down to 4.3. Differential white cell count shows 49.7% neutrophils. Hemoglobin is 12.3, hematocrit 38.9, platelet count 187,000. Sodium is 144, potassium 4, chloride 109, CO2 28, BUN 15, creatinine 0.5, glucose 67. Imaging was once again reviewed. MEDICATIONS REVIEW: This is day #2 of ceftriaxone. She is receiving Vimpat and Keppra and famotidine for ulcer prophylaxis. ASSESSMENT: 1. Acute hypoxic respiratory failure: Gas exchange is improved with clearing of secretions. I would continue nebulized therapy using an EZPAP device. 2. Aspiration event. I would continue empiric ceftriaxone for seven days. 3. Dysmotility. I would consider adding promotility agent. 4. Seizure versus myoclonus. I would consider reducing or discontinuing the Keppra and Vimpat. I have discussed the case with the attending hospitalist. He will continue management at this point, and I will follow at a distance.
[2021-01-26] MEDS ORDERED: NS 1,000 ML IV ONE ×2 (12:25→15:30)
--- NOTE | 2021-01-26 19:00 | ECGEPIP ---
[facility] Test Date: 2021-01-26 Pat Name: TIGIST GRIMES Department: Room: [place] [address] Gender: Female [employer]: MANUEL : 1980 Requested By: JOANN LUNA Order Number: [id number] Reading MD: Nilay Polanco Measurements Intervals [place] Rate: 45 P: -28 NC: 222 QRS: 35 QRSD: 100 T: 33 QT: 496 QTc: 429 Interpretive Statements Sinus bradycardia with 1st degree AV block Possible prior Inferior-posterior infarct , age undetermined Compared to prior tracings (3) in the system, sinus bradycardia is new Electronically Signed on 01-26-2021 19:00:38 EDT by Nilay Polanco
[2021-01-26] MEDS: MIRALAX *UNIT DOSE* 17GM PACKET GT SCH (20:55)
[2021-01-26] MEDS: CETIRIZINE (ZyrTEC) 10 MG TAB GT SCH (20:55)
[2021-01-27] VITALS (8 sets, daily range): BP systolic 84–120; BP diastolic 53–72
[2021-01-27] MEDS: LEVALBUTEROL 1.25 MG/0.5 ML CONCENTRATE NEB INH SCH ×7 (01:01→23:16)
[2021-01-27] MEDS: METOCLOPRAMIDE INJ 10MG/2ML VIAL (J2765 PER 1) IV SCH ×4 (03:42→21:53)
[2021-01-27 04:50] LABS: BASO % 0.3 % (0.0-1.0); EOS # 0.1 10^3/uL (0.0-0.5); EOS % 1.6 % (0.0-3.0); HEMOGLOBIN 11.3 g/dl (12.0-15.5); LYMPH # 1.7 10^3/uL (1.5-5.0); LYMPH % 43.7 % (24.0-44.0); MEAN CORPUSCULAR HEMOGLOBIN 34.6 pg (27.0-33.0); MEAN CORPUSCULAR HGB CONC 31.4 g/dl (32.0-36.5); MEAN CORPUSCULAR VOLUME 110.1 fl (80.0-96.0); MONO # 0.4 10^3/uL (0.0-0.8); MONO % 11.6 % (2.0-8.0); NEUTROPHILS # 1.6 10^3/uL (1.5-8.5); PLATELET COUNT, AUTOMATED 183 10^3/uL (150-450); RED BLOOD COUNT 3.27 10^6/uL (4.00-5.40); WHITE BLOOD COUNT 3.8 10^3/uL (4.0-10.0)
[2021-01-27 05:25] LABS: BLOOD UREA NITROGEN 19 MG/DL (7-18); CARBON DIOXIDE LEVEL 27 MEQ/L (21-32); CHLORIDE LEVEL 116 MEQ/L (98-107); CREATININE FOR GFR 0.43 MG/DL (0.55-1.30); GLOMERULAR FILTRATION RATE > 60.0 (>58); GLUCOSE, FASTING 111 MG/DL (70-100); POTASSIUM SERUM 4.1 MEQ/L (3.5-5.1); SODIUM LEVEL 147 MEQ/L (136-145)
[2021-01-27 05:42] LABS: APPEARANCE, URINE CLEAR (CLEAR); BACTERIA, URINE AUTO NEGATIVE (NEGATIVE); BILIRUBIN, URINE AUTO NEGATIVE (NEGATIVE); BLOOD, URINE BLOOD NEGATIVE (NEGATIVE); COLOR, URINE YELLOW (YELLOW); GLUCOSE, URINE (UA) AUTO NEGATIVE (NEGATIVE); KETONE, URINE AUTO TRACE mg/dL (NEGATIVE); LEUKOCYTE ESTERASE, URINE AUTO NEGATIVE (NEGATIVE); NITRITE, URINE AUTO NEGATIVE (NEGATIVE); PROTEIN, URINE AUTO NEGATIVE (NEGATIVE); RBC, URINE AUTO 6 /HPF (0-3); SPECIFIC GRAVITY URINE AUTO 1.017 (1.002-1.035); SQUAMOUS EPITHELIAL CELL UR AU 0 /HPF (0-6); TRANSITIONAL EPITHELIAL AUTO <1 /HPF; UROBILINOGEN, URINE AUTO 0.2 mg/dL (0.0-2.0); WBC, URINE AUTO 10 /HPF (0-3)
[2021-01-27] MEDS ORDERED: NS 0.45% 1,000 ML IV SCH ×2 (07:45→08:30)
[2021-01-27] MEDS: CYPROHEPTADINE 4 MG TAB GT SCH ×3 (09:20→21:51)
[2021-01-27] MEDS: LACOSAMIDE 50 MG TAB (VIMPAT) GT SCH ×2 (09:20→21:52)
[2021-01-27] MEDS: FAMOTIDINE 20 MG TAB PO SCH ×2 (09:20→21:52)
[2021-01-27] MEDS: HEPARIN SOD (PORCINE) 5000UNITS/ML 1ML VIAL/SYRINGE SQ SCH ×2 (09:21→21:53)
[2021-01-27] MEDS: NYSTATIN 100,000 UNITS/GM TOPICAL PWD 15 GM TOP SCH ×2 (09:23→21:54)
[2021-01-27] MEDS: cefTRIAXone SOD 2 GM in D5W MINI-BAG PLUS 50 ML IV SCH (09:24)
--- NOTE | 2021-01-27 12:18 | IPNPDOC ---
Text Note Date of Service The patient was seen on 01/27/21. NOTE Subjective: No new acute events overnight. No fever GENERAL APPEARANCE: Nonverbal patient with cerebral palsy HEENT: no scleral icterus, no JVD, EOMI CARDIOVASCULAR: Mild bilateral crackles LUNGS: Diminished lung sounds bilaterally ABDOMEN: soft & not tender w palpation MUSCULOSKELETAL: no cyanosis, no swelling INTEGUMENT: no generalized pallor NEUROLOGICAL: Nonverbal, not follows commands, speech not dysarthric Assessment and plan Patient 40 years old with past medical history of spastic cerebral palsy with quadriparesis profound mental retardation, seizure disorder, chronic hypothermia, recurrent aspiration pneumonia, status post PEG tube placement and tube feedings history of constrictive pericarditis presented from [facility] with hypoxia saturations of 70% before suctioning and only increasing to 83% after suctioning. Dyspnea /aspiration pneumonitis most likely secondary to bronchial obstruction due to secretion secondary to aspiration Suction as needed CT showed No CT evidence of pulmonary embolism. Small right pleural effusion with associated pleural thickening, similar to prior. Nonspecific subsegmental right lower lobe consolidation, compatible with atelectasis versus pneumonia/aspiration. I discussed the case with interventional radiologist Dr. Weeks, she recommended KUB and CT scan of abdomen and pelvis. KUB shows Nonspecific bowel gas pattern. Jejunostomy tube projects over the left mid abdomen. CT scan shows Left upper abdominal wall insertion of PEG tube noted with the tip terminating in the region of the proximal jejunum Dr. Sorto consulted patient he recommended to continue ceftriaxone IV for 7 days, adding motility agent and discontinue Keppra given no documented history of seizure disorder. Benzos on hold. Continue mucolytics Patient's leukocytosis resolved Oral pharyngeal dysfunction Patient has G-tube and J-tube for feeding Continue nutrition Bradycardia Resolved Asthma Continue inhalers Epilepsy After chart review with Dr. Sorto we did not find confirmation of epilepsy. 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
[2021-01-27] MEDS: NS 0.45% 1,000 ML IV SCH (15:10)
[2021-01-27] MEDS: MIRALAX *UNIT DOSE* 17GM PACKET GT SCH (21:51)
[2021-01-27] MEDS: CETIRIZINE (ZyrTEC) 10 MG TAB GT SCH (21:52)
[2021-01-28] MEDS: LEVALBUTEROL 1.25 MG/0.5 ML CONCENTRATE NEB INH SCH ×5 (04:57→20:32)
[2021-01-28] MEDS: METOCLOPRAMIDE INJ 10MG/2ML VIAL (J2765 PER 1) IV SCH ×4 (05:14→20:46)
[2021-01-28] MEDS: NS 0.45% 1,000 ML IV SCH ×2 (05:14→16:00)
[2021-01-28 06:21] LABS: BASO % 0.2 % (0.0-1.0); EOS # 0.1 10^3/uL (0.0-0.5); EOS % 2.4 % (0.0-3.0); HEMATOCRIT 35.8 % (36.0-47.0); HEMOGLOBIN 11.2 g/dl (12.0-15.5); LYMPH # 2.2 10^3/uL (1.5-5.0); LYMPH % 44.1 % (24.0-44.0); MEAN CORPUSCULAR HEMOGLOBIN 34.1 pg (27.0-33.0); MEAN CORPUSCULAR HGB CONC 31.3 g/dl (32.0-36.5); MEAN CORPUSCULAR VOLUME 109.1 fl (80.0-96.0); MONO # 0.5 10^3/uL (0.0-0.8); MONO % 9.2 % (2.0-8.0); NEUTROPHILS # 2.1 10^3/uL (1.5-8.5); NEUTROPHILS % 43.5 % (36.0-66.0); PLATELET COUNT, AUTOMATED 186 10^3/uL (150-450); RED BLOOD COUNT 3.28 10^6/uL (4.00-5.40); WHITE BLOOD COUNT 4.9 10^3/uL (4.0-10.0)
[2021-01-28 06:46] LABS: BLOOD UREA NITROGEN 16 MG/DL (7-18); CALCIUM LEVEL 8.1 MG/DL (8.5-10.1); CARBON DIOXIDE LEVEL 26 MEQ/L (21-32); CHLORIDE LEVEL 114 MEQ/L (98-107); CREATININE FOR GFR 0.45 MG/DL (0.55-1.30); GLOMERULAR FILTRATION RATE > 60.0 (>58); GLUCOSE, FASTING 124 MG/DL (70-100); POTASSIUM SERUM 3.9 MEQ/L (3.5-5.1); SODIUM LEVEL 145 MEQ/L (136-145)
[2021-01-28 08:00] VITALS: BP 125/72
[2021-01-28 08:59] LABS: IRON (FE) 98 UG/DL (50-170); PERCENT SATURATION 38.4 % (13.2-45.0); TOTAL IRON BINDING CAPACITY 255 UG/DL (250-450)
[2021-01-28] MEDS: LACOSAMIDE 50 MG TAB (VIMPAT) GT SCH ×2 (09:00→20:45)
[2021-01-28] MEDS: HEPARIN SOD (PORCINE) 5000UNITS/ML 1ML VIAL/SYRINGE SQ SCH ×2 (09:00→20:45)
[2021-01-28] MEDS: FAMOTIDINE 20 MG TAB PO SCH ×2 (09:00→20:46)
[2021-01-28] MEDS: CYPROHEPTADINE 4 MG TAB GT SCH ×3 (09:00→20:44)
[2021-01-28] MEDS: cefTRIAXone SOD 2 GM in D5W MINI-BAG PLUS 50 ML IV SCH (09:30)
[2021-01-28] MEDS: NYSTATIN 100,000 UNITS/GM TOPICAL PWD 15 GM TOP SCH ×2 (09:45→20:46)
[2021-01-28] MEDS ORDERED: ISOVUE-300 61% 50ML VIAL As Ordered ONE (10:39)
[2021-01-28 10:54] LABS: VITAMIN B12 LEVEL > 2000 PG/ML (247-911)
[2021-01-28 12:00] VITALS: BP 139/66
--- NOTE | 2021-01-28 12:40 | IPNPDOC ---
Text Note Date of Service The patient was seen on 01/28/21. NOTE Subjective: No new acute events overnight. PEG tube was found not functioning properly. GENERAL APPEARANCE: Nonverbal patient with cerebral palsy HEENT: no scleral icterus, no JVD, EOMI CARDIOVASCULAR: Mild bilateral crackles LUNGS: Diminished lung sounds bilaterally ABDOMEN: soft & not tender w palpation MUSCULOSKELETAL: no cyanosis, no swelling INTEGUMENT: no generalized pallor NEUROLOGICAL: Nonverbal, not follows commands, speech not dysarthric Assessment and plan Patient 40 years old with past medical history of spastic cerebral palsy with quadriparesis profound mental retardation, seizure disorder, chronic hypothermia, recurrent aspiration pneumonia, status post PEG tube placement and tube feedings history of constrictive pericarditis presented from [facility] with hypoxia saturations of 70% before suctioning and only increasing to 83% after suctioning. Dyspnea /aspiration pneumonitis most likely secondary to bronchial obstruction due to secretion secondary to aspiration Suction as needed CT showed No CT evidence of pulmonary embolism. Small right pleural effusion with associated pleural thickening, similar to prior. Nonspecific subsegmental right lower lobe consolidation, compatible with atelectasis versus pneumonia/aspiration. I discussed the case with interventional radiologist Dr. Weeks, she recommended KUB and CT scan of abdomen and pelvis. KUB shows Nonspecific bowel gas pattern. Jejunostomy tube projects over the left mid abdomen. CT scan shows Left upper abdominal wall insertion of PEG tube noted with the tip terminating in the region of the proximal jejunum Dr. Sorto consulted patient he recommended to continue ceftriaxone IV for 7 days, adding motility agent and discontinue Keppra given no documented history of seizure disorder. Benzos on hold. Continue mucolytics Patient's leukocytosis resolved Oral pharyngeal dysfunction Patient has G-tube and J-tube for feeding Continue nutrition PEG tube malfunctioning IR consult placed for changing of PEG tube Bradycardia Resolved Asthma Continue inhalers Epilepsy After chart review with Dr. Sorto we did not find confirmation of epilepsy. 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
[2021-01-28 16:00] VITALS: BP 95/51
[2021-01-28 20:02] LABS: ABG BASE EXCESS 0.6 (-2.0-2.0); ABG HCO3 26.4 MEQ/L (22.0-26.0); ABG PARTIAL PRESSURE CO2 47.2 mmHg (35.0-45.0); ABG PARTIAL PRESSURE O2 142.8 mmHg (75.0-100.0); ABG TOTAL CO2 27.8 MEQ/L (22.0-29.0); ABG pH (ARTERIAL) 7.365 UNITS (7.350-7.450)
[2021-01-28] MEDS: CETIRIZINE (ZyrTEC) 10 MG TAB GT SCH (20:44)
[2021-01-28] MEDS: MIRALAX *UNIT DOSE* 17GM PACKET GT SCH (20:45)
--- NOTE | 2021-01-28 22:01 | REPVR ---
PROCEDURE INFORMATION: Exam: XR Chest Exam date and time: 01/28/21 (8:10pm) Age: 40 years old Clinical indication: SOB. Respiratory distress. TECHNIQUE: Imaging protocol: Portable CXR Views: 1 view COMPARISON: CTA CHEST of 01/23/21 Portable CXR of 03/31/20 FINDINGS: Comparison is made with a CTA-CHEST scan of 01/23/21, and a portable CXR of 03/31/20. The patient is rotated to an NULL position. Stable cardiomegaly, with left ventricular prominence. The left lung is difficult to evaluate due to patient rotation and cardiomegaly. The right lung again shows diffusely prominent lung markings and interstitial changes. No significant pleural effusions are appreciated. Air-filled bowel in the visualized mid and upper abdomen. No pneumothorax. Redemonstration of chronic deformity of the proximal right humerus (probably unhealed fracture of the right humeral head / humeral neck). IMPRESSION: No focal infiltrates. No pleural effusions. Stable cardiomegaly. Chronic-appearing right lung interstitial changes (more marked in Sept 2020). Cannot exclude a mild superimposed ight lung interstitial pneumonitis. Electronically signed by: Rosa Gomes On 01/28/2021 22:01:10 PM
--- NOTE | 2021-01-28 22:30 | IPNPDOC ---
Text Note Date of Service The patient was seen on 01/28/21. NOTE Paged by nursing staff at approx 1915 that patient was having respiratory dis tress and frothing at the mouth. Came and saw the patient at this time who had severely increased work of breathing. Physical exam notable for frothing at the nose and mouth, wheezing and crackles at b/l lung apices, and near absent breath sounds in the RLL. Vital signs stable except tachypnea with respirations in the 30s. At this time I paused all tube feedings and IV fluids. Nursing staff and re spiratory therapist suctioned patient to relief. Paged again by nursing staff around 2200 that patient was again in respiratory distress. Saw and examined patient at this time who was now desaturating into the mid 80s and had tachypnea into the 50s. Saw and examined patient at this time who was in severe distress but was not relieved by suctioning. Patient appears at times to try to cough but clearly cannot. ABG and prior CXR reviewed and were unimpressive. Turn Operator Dr. Sorto consulted and has agreed to come see patient. Attending hospitalist physician Dr. Ramsay has made decision transfer patient to the ICU at this time. VS,Fishbone, I+O VS, Fishbone, I+O Laboratory Tests 01/28/21 05:50 Vital Signs Date Time Temp Pulse Resp B/P (MAP) Pulse Ox O2 Delivery O2 Flow Rate FiO2 01/28/21 16:00 95.9 81 20 95/51 (66) 97 Nasal Cannula 3.0 01/25/21 08:30 50 I&O- Last 24 Hours up to 6 AM 01/28/21 06:00 Intake Total 4320 ml Output Total 0 ml Balance 4320 ml APOLLO QUIROZ Jan 28, 2021 22:30
[2021-01-28 22:39] VITALS: BP 114/58
[2021-01-28 23:00] VITALS: BP 120/63
[2021-01-29] VITALS (14 sets, daily range): BP systolic 95–160; BP diastolic 52–88
[2021-01-29] MEDS: METOCLOPRAMIDE INJ 10MG/2ML VIAL (J2765 PER 1) IV SCH ×4 (04:22→21:07)
[2021-01-29] MEDS: LEVALBUTEROL 1.25 MG/0.5 ML CONCENTRATE NEB INH SCH ×6 (04:43→19:27)
[2021-01-29 05:14] LABS: BASO % 0.2 % (0.0-1.0); EOS # 0.2 10^3/uL (0.0-0.5); EOS % 1.4 % (0.0-3.0); HEMATOCRIT 36.2 % (36.0-47.0); HEMOGLOBIN 11.5 g/dl (12.0-15.5); LYMPH # 1.9 10^3/uL (1.5-5.0); LYMPH % 15.7 % (24.0-44.0); MEAN CORPUSCULAR HEMOGLOBIN 35.1 pg (27.0-33.0); MEAN CORPUSCULAR HGB CONC 31.8 g/dl (32.0-36.5); MEAN CORPUSCULAR VOLUME 110.4 fl (80.0-96.0); MONO # 0.9 10^3/uL (0.0-0.8); MONO % 7.2 % (2.0-8.0); PLATELET COUNT, AUTOMATED 198 10^3/uL (150-450); RED BLOOD COUNT 3.28 10^6/uL (4.00-5.40)
[2021-01-29 05:53] LABS: BLOOD UREA NITROGEN 11 MG/DL (7-18); CALCIUM LEVEL 8.8 MG/DL (8.5-10.1); CARBON DIOXIDE LEVEL 28 MEQ/L (21-32); CHLORIDE LEVEL 115 MEQ/L (98-107); CREATININE FOR GFR 0.38 MG/DL (0.55-1.30); GLOMERULAR FILTRATION RATE > 60.0 (>58); GLUCOSE, FASTING 83 MG/DL (70-100); NT-PRO BNP 270 PG/ML (<125); POTASSIUM SERUM 4.4 MEQ/L (3.5-5.1); SODIUM LEVEL 148 MEQ/L (136-145)
--- NOTE | 2021-01-29 05:55 | CCN ---
CRITICAL CARE NOTE DATE: 01/28/2021 SUBJECTIVE: I was called to evaluate this patient in the Intensive Care Unit for hypoxemia and respiratory distress. The patient had been downgraded 48 hours ago to the PCU but despite mucolytics and suctioning she developed increasing tachypnea and was unable to clear secretions. There was concern of aspiration. As her oxygen saturations dropped, she was transferred back to the ICU and oxygen requirement was increased. OBJECTIVE: VITAL SIGNS: Her temperature is 95.9, pulse rate 88, respirations 40, blood pressure 95/51. INPUT AND OUTPUT: I and O's for the past 48 hours is 5 liters positive. HEENT: She is raising frothy secretions. NECK: Her neck is quach. HEART: Heart sounds are regular. LUNGS: Breath sounds are diminished globally. There is some large airway rhonchi. ABDOMEN: Firm, somewhat distended. The G/J-tube is in good position. EXTREMITIES: Contracture deformities. DIAGNOSTIC STUDIES: Her white cell count this morning was 4.9, hemoglobin 11.2, hematocrit 35.8, platelet count 186,000. Sodium was 145, potassium is 3.9, chloride 114, CO2 26, BUN 16, creatinine 0.45, glucose 124. The primary problem requiring critical attention is acute hypoxic respiratory failure. Will check an arterial blood gas and chest x-ray. The arterial blood gas shows a pH of 7.36, pCO2 47, pO2 142. A chest x-ray shows no new infiltrates. There is no indication for ventilatory support at the current time. Her abdomen is quite firm. Reports indicate that her J-tube was just changed today. The feedings have been stopped. Will put the J-tube to suction. The abdominal distention could be contributing to her respiratory distress. I and O's are quite positive as well. I will send off a beta natruretic peptide. I have discussed the patient's status with the attending Hospitalist and updated the ICU nursing team on her status and care plans for the night. Her condition is critical, prognosis is guarded; 1 hour and 17 minutes was spent in the provision of bedside critical care and coordination excluding any procedure time.
[2021-01-29] MEDS: cefTRIAXone SOD 2 GM in D5W MINI-BAG PLUS 50 ML IV SCH (08:08)
[2021-01-29] MEDS: NYSTATIN 100,000 UNITS/GM TOPICAL PWD 15 GM TOP SCH ×2 (09:00→20:27)
--- NOTE | 2021-01-29 09:04 | IRPON ---
IR Postoperative Note Date Of Procedure: Jan 28, 2021 Time Of Procedure: 16:00 IR Postoperative Note IR Gastrojejunostomy Catheter Exchange. Gastrojejunostomy catheter exchange with fluoroscopic guidance. Clinical Information: GJ dependent. GJ clogged. Physician: Dr. Weeks. Procedure: The patient's mother was advised of the benefits, risks, and alternatives of the procedure and informed consent was obtained. A time out was performed with verification of the patient's name, MRN, site of procedure, and type of procedure to be performed. The patient was positioned in the supine position on the angiographic table. The site was prepped and draped in the usual sterile fashion. Moderate sedation was not required. The physician spent 30 minutes of continuous [id number] time with the patient. A motion picture critic radiograph reveals a GJ catheter. The gastric and jejunal ports of the catheter were injected with contrast demonstrating that the tube is clogged. A Glidewire advantage was advanced into the catheter, but could not be advanced through the catheter, as the tube was clogged. A 5 Barbadian kumpe catheter, in conjunction with a Glidewire, was advanced alongside the GJ catheter, under fluoroscopy guidance. After successful catheterization of the jejunum, the wire was removed and contrast injection c onfirmed location within the jejunum. The original GJ catheter was removed. A wire was readvanced through the Kumpe catheter, under fluoroscopy guidance, and the catheter was removed over the wire. A new 22 Barbadian SUSAN gastrojejunostomy catheter was advanced over the wire, under fluoroscopy guidance, into the proximal jejunum. The retention balloon was inflated and then retracted against the anterior stomach wall. Appropriate positioning of the catheter was confirmed with injection of contrast through the gastric and jejunal ports. The retention disc was approximated to the skin of the abdominal wall. A sterile dressing was applied. The patient tolerated the procedure well and was returned to the PRU in stable condition. EBL: < 5 mL. Complications: None. Conclusion: Successful exchange of 22 Barbadian double lumen SUSAN gastrojejunostomy catheter. The catheter is ready for immediate use. Thank you for this referral NUPUR WEEKS MD Jan 29, 2021 09:04
[2021-01-29] MEDS: LACOSAMIDE 50 MG TAB (VIMPAT) GT SCH ×2 (10:08→20:27)
[2021-01-29] MEDS: CYPROHEPTADINE 4 MG TAB GT SCH ×3 (10:08→21:07)
[2021-01-29] MEDS: HEPARIN SOD (PORCINE) 5000UNITS/ML 1ML VIAL/SYRINGE SQ SCH ×2 (10:08→20:27)
[2021-01-29] MEDS: SCOPOLAMINE 1MG TRANSDERMAL PATCH TD SCH (10:09)
[2021-01-29] MEDS: FAMOTIDINE 20 MG TAB PO SCH ×2 (10:09→20:27)
--- NOTE | 2021-01-29 10:29 | CCN ---
CRITICAL CARE NOTE DATE: 01/29/2021 SUBJECTIVE: Patient is doing better today. Patient was resigned onto the critical care team yesterday night due to an episode of dyspnea. At that time, G-tube was placed on suctioning, and the patient is doing a lot better today as a result. Nursing staff denies any events after gastric decompression with the G-tube placed on suctioning. Hospitalist team also reports that the patient is doing well, and they are considering feed tube trial before discharging her to [facility]. OBJECTIVE: VITAL SIGNS: Temperature 97.7 rectal, blood pressure 135/69, heart rate 87, oxygen saturation 94% on 4 liters nasal cannula. GENERAL APPEARANCE: Patient is in no acute distress and is smiling looking around the room. Patient is drooling. However, this is at her baseline due to her cerebral palsy. CARDIAC: Patient has no JVD, patient has no lower extremity edema, regular rate and rhythm, no murmurs, rubs, or gallops appreciated. LUNGS: Breath sounds are diminished diffusely. Rhonchi are appreciated in all lobes. ABDOMEN: Soft, nondistended, G-tube in good position. EXTREMITIES: Contracture deformities present. DIAGNOSTIC STUDIES: White count is 12, hemoglobin is 11.5, hematocrit is 36.2, platelet count is 198. ABG values: pH is 7.365, pCO2 is 47.2, pO2 is 142.8, oxygen saturation is 99% on 4 liters nasal cannula. Chest x-ray from 01/28/2021 at 6 reveals no focal infiltrates, no pleural effusions, stable cardiomegaly, chronic appearing right lung interstitial changes slightly more marked than in March 2020. The patient's BNP was 270. ASSESSMENT/PLAN: The patient is doing a lot better today after G-tube was suctioned and abdominal decompression was done. This was likely contributing to the patient's respiratory distress. We discussed patient's prognosis with hospitalist team. Although prognosis was guarded during the dyspneic event overnight, this was likely caused by the G-tube. Trial of feeding through G-tube will be done before patient is likely discharged to [facility]. Patient's prognosis is fair at this time. Patient's BNP is only slightly elevated, and, therefore, her respiratory distress was not secondary to volume overload or resultant heart failure. GME ATTESTATION: My faculty preceptor for this patient encounter was physically present during the encounter and was fully available. All aspects of the patient interview, examination, medical decision making process, and medical care plan development were reviewed and approved by the faculty preceptor. The faculty preceptor is aware and concurs with the plan as stated in the body of this note and will attest to such by his co-signature. Dr. Sorto: I saw the patient and participated in the rivas elements of the exam review and decision process. While the patient is very complex she does appear to have responded to the above described treatments . JAKI
--- NOTE | 2021-01-29 11:14 | IPNPDOC ---
Text Note Date of Service The patient was seen on 01/29/21. NOTE Subjective: Yesterday patient developed dyspnea with oxygen desaturation to 70s. Patient had increased tachypnea, patient was transferred to ICU. In the morning patient was stable smiling she had 96% of oxygen saturation on the 3 L of oxygen via nasal cannula GENERAL APPEARANCE: Nonverbal patient with cerebral palsy HEENT: no scleral icterus, no JVD, EOMI CARDIOVASCULAR: Mild bilateral crackles LUNGS: Diminished lung sounds bilaterally ABDOMEN: soft & not tender w palpation MUSCULOSKELETAL: no cyanosis, no swelling INTEGUMENT: no generalized pallor NEUROLOGICAL: Nonverbal, not follows commands, speech not dysarthric Assessment and plan Patient 40 years old with past medical history of spastic cerebral palsy with quadriparesis profound mental retardation, seizure disorder, chronic hypothermia, recurrent aspiration pneumonia, status post PEG tube placement and tube feedings history of constrictive pericarditis presented from [facility] with hypoxia saturations of 70% before suctioning and only increasing to 83% after suctioning. Dyspnea /aspiration pneumonitis most likely secondary to bronchial obstruction due to secretion secondary to aspiration Suction as needed CT showed No CT evidence of pulmonary embolism. Small right pleural effusion with associated pleural thickening, similar to prior. Nonspecific subsegmental right lower lobe consolidation, compatible with atelectasis versus pneumonia/aspiration. I discussed the case with interventional radiologist Dr. Weeks, she recommended KUB and CT scan of abdomen and pelvis. KUB shows Nonspecific bowel gas pattern. Jejunostomy tube projects over the left mid abdomen. CT scan shows Left upper abdominal wall insertion of PEG tube noted with the tip terminating in the region of the proximal jejunum Dr. Sorto consulted patient he recommended to continue ceftriaxone IV for 7 days, adding motility agent and discontinue Keppra given no documented history of seizure disorder. Benzos on hold. Continue mucolytics Patient respiratory status markedly improved in the morning. Most likely respiratory distress yesterday most likely was associated with yesterday changing of G-tube tube, abdominal exam showed distended abdomen, distention subsequently resolved. We continue J tube feeding Oral pharyngeal dysfunction Patient has G-tube and J-tube for feeding Continue nutrition PEG tube malfunctioning IR consult changed it yesterday Bradycardia Resolved Asthma Continue inhalers Epilepsy After chart review with Dr. Sorto we did not find confirmation of epilepsy. 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
[2021-01-29] MEDS: MIRALAX *UNIT DOSE* 17GM PACKET GT SCH (20:26)
[2021-01-29] MEDS: CETIRIZINE (ZyrTEC) 10 MG TAB GT SCH (20:26)
[2021-01-30] VITALS: BP 99/65
[2021-01-30] MEDS: LEVALBUTEROL 1.25 MG/0.5 ML CONCENTRATE NEB INH SCH ×4 (00:09→11:20)
[2021-01-30 04:00] VITALS: BP 88/63
[2021-01-30] MEDS: METOCLOPRAMIDE INJ 10MG/2ML VIAL (J2765 PER 1) IV SCH ×2 (04:23→09:32)
[2021-01-30 05:03] LABS: BASO % 0.5 % (0.0-1.0); EOS # 0.2 10^3/uL (0.0-0.5); EOS % 3.9 % (0.0-3.0); HEMOGLOBIN 10.3 g/dl (12.0-15.5); LYMPH % 50.9 % (24.0-44.0); MEAN CORPUSCULAR HEMOGLOBIN 34.3 pg (27.0-33.0); MEAN CORPUSCULAR HGB CONC 31.2 g/dl (32.0-36.5); MONO # 0.8 10^3/uL (0.0-0.8); MONO % 13.8 % (2.0-8.0); NEUTROPHILS # 1.8 10^3/uL (1.5-8.5); NEUTROPHILS % 30.6 % (36.0-66.0); PLATELET COUNT, AUTOMATED 201 10^3/uL (150-450); WHITE BLOOD COUNT 5.9 10^3/uL (4.0-10.0)
[2021-01-30 05:32] LABS: BLOOD UREA NITROGEN 14 MG/DL (7-18); CALCIUM LEVEL 8.9 MG/DL (8.5-10.1); CARBON DIOXIDE LEVEL 30 MEQ/L (21-32); CHLORIDE LEVEL 111 MEQ/L (98-107); CREATININE FOR GFR 0.31 MG/DL (0.55-1.30); GLOMERULAR FILTRATION RATE > 60.0 (>58); GLUCOSE, FASTING 93 MG/DL (70-100); POTASSIUM SERUM 4.8 MEQ/L (3.5-5.1); SODIUM LEVEL 145 MEQ/L (136-145)
[2021-01-30 08:00] VITALS: BP 109/67
[2021-01-30] MEDS: cefTRIAXone SOD 2 GM in D5W MINI-BAG PLUS 50 ML IV SCH (08:20)
[2021-01-30] MEDS: LACOSAMIDE 50 MG TAB (VIMPAT) GT SCH (09:33)
[2021-01-30] MEDS: CYPROHEPTADINE 4 MG TAB GT SCH (09:33)
[2021-01-30] MEDS: HEPARIN SOD (PORCINE) 5000UNITS/ML 1ML VIAL/SYRINGE SQ SCH (09:33)
[2021-01-30] MEDS: FAMOTIDINE 20 MG TAB PO SCH (09:33)
[2021-01-30] MEDS: NYSTATIN 100,000 UNITS/GM TOPICAL PWD 15 GM TOP SCH (09:33)
[2021-01-30] MEDS ORDERED: METO5TAB2 PO (09:59)
--- NOTE | 2021-01-30 11:07 | CCN ---
CRITICAL CARE NOTE DATE: 01/30/2021 SUBJECTIVE: Patient was seen and examined this morning during bedside rounds. Patient has been weaned off of nasal cannula oxygen supplementation. She is on room air and has been saturating well. She does continue to have episodes of coughing and does have some upper airway gurgling sounds. With oral suctioning, however, there is minimal output. She was restarted on tube feeds yesterday, which she did tolerate overnight at 40 mL an hour with no reported significant residuals. She has not had any episodes of vomiting. It does not appear that she has had any bowel movements yesterday or overnight into this morning. Patient otherwise appears at her baseline mental status. She is alert but nonverbal and does not follow commands. OBJECTIVE: VITALS: Temperature 96.8, pulse 77, respirations 28, blood pressure 109/67, O2 sat 94% on room air. Ins 1.4 liters, out 1.1 liters, net positive 155 mL. GENERAL: Patient appears chronically ill. She has evidence of chronic contractures with a history of cerebral palsy. She is alert and is mostly nonverbal. She does make sounds but no words. She does not follow any commands appropriately which is reportedly at her baseline. HEENT: Atraumatic. Pupils are reactive to light bilaterally. There is moist mucous membranes noted. Patient has Mallampati IV with a very thick and short neck. She does have cough and occasional upper airway gurgling sounds but minimal secretions with suctioning. CARDIAC: Regular rate and rhythm. Normal S1 and S2. Unable to clearly auscultate any murmurs. LUNGS: Patient has coarse rhonchi noted and occasional crackles at the bases. ABDOMEN: Appears mildly distended but is not tender to palpation with no grimacing or withdrawal to palpation. There is a J-tube in place. EXTREMITIES: Patient has evidence of chronic contracture and chronic muscle wasting. She has no significant lower extremity edema bilaterally. LABORATORY DATA: WBC 5.9, hemoglobin 10.3, platelets 201. Chemistries: Sodium 145, potassium 4.8, chloride 111, bicarb 30, BUN 14, creatinine 0.31, glucose 93. BNP was 270, increased from 25 on admission. ASSESSMENT AND PLAN: Ms. Echeverria is a 40-year-old female with a history of cerebral palsy with quadriparesis and profound developmental delay, seizure disorder, chronic hypothermia, history of recurrent aspiration, and status post J-tube placement who presented with acute hypoxemic respiratory failure likely secondary to aspiration. 1. Acute hypoxemic respiratory failure and dyspnea likely in the setting of some aspiration as well as contribution from abdominal distention. a. Patient was placed on nasal cannula oxygen supplementation, and with suctioning as well as with placing her J-tube to suction, she had improvement in her respiratory status and is now on room air oxygen and saturating well. b. Patient did have an exchange of her J-tube by IR. She is now tolerating tube feeds with no reported residuals. No nausea or vomiting. She has not had any bowel movements yet documented. c. Patient is at still very high risk for aspiration. She does have coughing but has difficulty bringing up and clearing her secretions. Will continue with oral suctioning as needed and continue with head of bed elevation. d. Patient did have atelectasis versus consolidation in the right lower lobe on admission. She is on ceftriaxone for antibiotics for a possible aspiration pneumonia. Would continue for at least a seven day course but can consider deescalating to oral antibiotics such as fluoroquinolone as she does have a penicillin allergy documented. e. Would continue with bowel regimen and motility agents. I suspect she did have a degree of likely constipation as well as possible obstruction with her J-tube contributing to some of her abdominal distention and respiratory distress. 2. DVT prophylaxis with Heparin. 3. Code status is DNR with a trial intubation. TOTAL CRITICAL CARE TIME SPENT NOT INCLUDING PROCEDURES: Approximately 45 minutes.
[2021-01-30] MEDS ORDERED: LEVO500T3 PO (15:16)
--- NOTE | 2021-01-30 15:34 | DS.PDOC ---
Discharge Summary General Date of Admission Jan 23, 2021 at 15:48 Date of Discharge 01/29/21 Discharge Summary PROCEDURES PERFORMED DURING STAY: [None]. 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 HISTORY OF PRESENT ILLNESS: Patient 40 years old with past medical history of spastic cerebral palsy with quadriparesis profound mental retardation, seizure disorder, chronic hypothermia, recurrent aspiration pneumonia, status post PEG tube placement and tube feedings history of constrictive pericarditis presented from [facility] with hypoxia saturations of 70% before suctioning and only increasing to 83% after suctioning. HOSPITAL COURSE: During the hospital stay and the following issues addressed Dyspnea /aspiration pneumonitis most likely secondary to bronchial obstruction due to secretion During the hospital stay patient received suction as needed. CT showed No CT evidence of pulmonary embolism. Small right pleural effusion with associated pleural thickening, similar to prior. Nonspecific subsegmental right lower lobe consolidation, compatible with atelectasis versus pneumonia/aspiration. I discussed the case with interventional radiologist Dr. Weeks, she recommended KUB and CT scan of abdomen and pelvis. KUB shows Nonspecific bowel gas pattern. Jejunostomy tube projects over the left mid abdomen. CT scan shows Left upper abdominal wall insertion of PEG tube noted with the tip terminating in the region of the proximal jejunum Dr. Sorto consulted patient he recommended to continue ceftriaxone IV, patient completed course of ceftriaxone, frequent suctioning, adding motility agent and discontinue Keppra given no documented history of seizure disorder. Benzos was on hold. Patient received treatment with mucolytics. Patient respiratory status continues to improve in the morning. Patient was on room air with good oxygen saturation afebrile, not tachycardic. She received feeding through J-tube from yesterday without any respiratory distress. Patient had documented bowel movement on 01/28/2021, her abdomen is soft, bowel movements present. We will continue antibiotic therapy with levofloxacin for next 7 days Oral pharyngeal dysfunction Patient has G-tube and J-tube for feeding Continue nutrition PEG tube malfunctioning IR consult changed it during the hospital stay Bradycardia Resolved Asthma Continue inhalers Epilepsy After chart review with Dr. Sorto we did not find confirmation of epilepsy. 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 ALLERGIES: Please see below. PHYSICAL EXAMINATION ON DISCHARGE: VITAL SIGNS: Please see below. GENERAL APPEARANCE: Nonverbal patient with cerebral palsy HEENT: no scleral icterus, no JVD, EOMI CARDIOVASCULAR: S1-S2 LUNGS: Diminished lung sounds bilaterally ABDOMEN: soft & not tender w palpation MUSCULOSKELETAL: no cyanosis, no swelling INTEGUMENT: no generalized pallor NEUROLOGICAL: Nonverbal, not follows commands, speech not dysarthric LABORATORY DATA: Please see below. IMAGING: [facility] NAME: TIGIST GRIMES DATE OF : 1980 AGE: 40 SEX: F REPORT #: [id number] ROOM: ICU TECHNOLOGIST: [facility] DOCTOR: JOANN LUNA DO Ordered for Date&Time: 01/25/21 0942 cc: [~ rep ct ivnm] Service Date&Time: 01/25/21 1035 This report is in Signed status. If this report is in a DRAFT status it has not yet been reviewed by the radiologist for accuracy. Thank you for having your radiology procedures performed at [facility] RADIOLOGY REPORT Date&Time printed: [~ rep prt dt last] [~ rep prt tm last] Page 2 of 2 [place] [address] RADIOLOGY REPORT This report is in Signed status. If this report is in a DRAFT status it has not yet been reviewed by the radiologist for accuracy. Thank you for having your radiology procedures performed at [facility] RADIOLOGY REPORT Date&Time printed: [~ rep prt dt last] [~ rep prt tm last] Page 1 of 2 INDICATION: J-tube displacement?. COMPARISON: CT 11/20/2020, CT angio chest 01/24/2020 TECHNIQUE: Noncontrast scanning through the chest with coronal and sagittal reconstructions. FINDINGS: CT abdomen: The lung bases show of small right pleural effusion with some subsegmental atelectatic changes and patchy atelectasis adjacent. There is some compressive atelectatic change deep sulcus of the left lower lobe versus patchy infiltrate. No definite left effusion. Heart is mildly enlarged as before. There is no pericardial thickening or effusion. Thoracic and abdominal aorta shows scattered calcifications without aneurysm. Left upper abdominal wall insertion of PEG tube noted with the tip terminating in the region of the proximal jejunum. The liver, spleen, adrenal glands and pancreas are unremarkable. There is hyperdense bile in the gallbladder, likely vicarious excretion from IV contrast related to CT angiogram 2 days ago. There is a nonobstructing stone in the lower pole of the left kidney about 10 mm and unchanged. Neither kidney shows hydronephrosis or solid mass there is no perinephric edema. There is no hydroureter or ureteral calcification on either side. Chronic gas- filled and distended colon loops are unchanged with gas scattered throughout small bowel loops. There are no signs of perforation or free air in the abdomen or pelvis. There is no periaortic or other retroperitoneal pathologic sized lymphadenopathy. No mesenteric nodes or masses. Bones show dextroconvex thoracolumbar scoliosis and degenerative facet changes lower lumbar spine. CT pelvis: Bladder shows the hyperdense urine consistent with the IV contrast from CT angiogram 2 days ago. No hydronephrosis or hydroureter. Uterus anteverted not enlarged. No pelvic mass or free fluid. The abdominal portion of colon shows no sign of colitis or diverticulitis. Rectosigmoid and filled with the semi solid or liquid stool. This same finding is seen scattered throughout the colon in smaller amounts. Small bowel loops are grossly unremarkable in the abdomen and pelvis. No ventral or inguinal hernia nor inguinal adenopathy. The bone windows show chronic hip dislocations and pseudo-acetabula, superior to the lower sioux acetabulum. IMPRESSION: 1. Subsegmental atelectatic change with small effusion on the right and some increase in basilar atelectasis or patchy infiltrate on the left compared to CTA chest 01/23/2021. 2. Chronic distension of the colon unchanged. No obstruction. Scattered gas and fluid in small bowel loops, no obstruction. No ascites or free air. No adenopathy. 3. Hyperdense bile from vicarious excretion IV contrast from CT 2 days ago, dense urine in the bladder from IV contrast 2 days ago. No hydronephrosis or hydro ureter. 4. PEG tube gastrojejunostomy with tip in the proximal jejunum unchanged. 5. Chronic hip dysplasia and dextro rotatory curve thoracolumbar spine. 6. Solid organs upper abdomen unremarkable. <Electronically signed by Fermín Hansen > 01/25/21 1217 DD: Fermín Hansen MD 01/25/21 1153 DT: YAHAIRA 01/25/21 1217 DS: RIGOBERTO 01/25/21 1153 01/25/21 1153 [~ rep ct labl] PROGNOSIS: Poor ACTIVITY: [As tolerated]. DIET: Resume previous diet DISPOSITION: 62 D/T Rehab Facility. ITEMS TO FOLLOWUP ON ON OUTPATIENT: Follow-up with offset printer and PCP DISCHARGE CONDITION: [Stable]. TIME SPENT ON DISCHARGE: 40 minutes. Vital Signs/I&Os Vital Signs Date Time Temp Pulse Resp B/P (MAP) Pulse Ox O2 Delivery O2 Flow Rate FiO2 01/30/21 08:00 96.8 77 28 109/67 (81) 94 Room Air 01/29/21 10:00 2.0 01/25/21 08:30 50 I&O- Last 24 Hours up to 6 AM 01/30/21 06:00 Intake Total 1930 ml Output Total 865 ml Balance 1065 ml Laboratory Data Labs 24H Laboratory Tests 2 01/29/21 17:47: Bedside Glucose (Misc Panel) 95 01/29/21 23:22: Bedside Glucose (Misc Panel) 99 01/30/21 04:54: Immature Granulocyte % (Auto) 0.3, Neutrophils (%) (Auto) 30.6L, Lymphocytes (%) (Auto) 50.9H, Monocytes (%) (Auto) 13.8H, Eosinophils (%) (Auto) 3.9H, Basophils (%) (Auto) 0.5, Neutrophils # (Auto) 1.8, Lymphocytes # (Auto) 3.0, Monocytes # (Auto) 0.8, Eosinophils # (Auto) 0.2, Basophils # (Auto) 0.0, Nucleated Red Blood Cells % (auto) 0.0, Anion Gap 4L, Glomerular Filtration Rate > 60.0, Calcium Level 8.9 CBC/BMP Laboratory Tests 01/30/21 04:54 FSBS Laboratory Tests Test 01/29/21 17:47 01/29/21 23:22 Range/Units Bedside Glucose (Misc Panel) 95 99 70-105 MG/DL Microbiology Microbiology 01/26/21 Blood Culture - Preliminary, Resulted No Growth after 72 hours. All specime... 01/26/21 Blood Culture - Preliminary, Resulted No Growth after 72 hours. All specime... 01/23/21 Respiratory Virus Panel (PCR) (SUSAN) - Final, Complete Discharge Medications Scheduled Benzoyl Peroxide (Benzoyl Peroxide) 10 % Cleanser, 1 DOSE TOP BID, (Reported) APPLY TO FACE, EARS AND WASH. Cetirizine HCl (Cetirizine HCl) 10 Mg Tablet, 10 MG GT QHS, (Reported) Clindamycin Phosphate (Clindagel) 1 % Gel, 1 DOSE TOP BID, (Reported) TO FACE, UNDERARMS AND BEHIND EARS Clorazepate Dipotassium (Tranxene T-Tab) 7.5 Mg Tab, 7.5 MG GT BID, (Reported) Cyproheptadine HCl (Cyproheptadine HCl) 4 Mg Tab, 8 MG GT TID, (Reported) Famotidine (Famotidine) 20 Mg Tablet, 10 MG PO BID, (Reported) Ipratropium [place] (Atrovent Hfa) 12.9 Gm Hfa.aer.ad, 1 PUFF INH QID, (Reported) Lacosamide (Vimpat) 10 Mg/Ml Caroline, 5 ML GT QAM, (Reported) Lacosamide (Vimpat) 10 Mg/Ml Caroline, 7.5 ML GT QHS, (Reported) Lactose-Reduced Food/Fiber (Jevity 1.2 Cedric Liquid) 237 Ml Liquid, 2 CAN GT QPM, (Reported) Levalbuterol HCl (Levalbuterol HCl) 1.25 Mg/3 Ml Neb, 1.25 MG INH QID, (Reported) MAY MIX WITH IPRATROPIUM Levofloxacin (Levofloxacin) 500 Mg Tablet, 1 TAB PO DAILY Metoclopramide HCl (Metoclopramide HCl) 5 Mg Tablet, 1 TAB PO TID Nystatin (Nystatin Powder) 100,000 Unit/Gm Pow, 1 DOSE TOP BID, (Reported) APPLIED TO GROIN AREA Polyethylene Glycol 3350 (Miralax) 1 Pow Pow, 17 GM GT QPM, (Reported) HOLD FOR LOOSE STOOLS Protein Supplement (Promod) 946 Ml Liquid, 60 ML GT QHS, (Reported) MIX WITH 30 CC OF WATER Scopolamine (Transderm-Scop) 1.5 Mg Dis, 1.5 MG TD Q3RD, (Reported) Wheat Dextrin (Benefiber) 1 Each Powd.pack, 1 POW GT TID, (Reported) Scheduled PRN Docusate Sodium (Docusate Sodium) 50 Mg/5 Ml Liq, 150 MG GT ASDIRECTED PRN for CONSTIPATION, (Reported) BID IF NO BM IN MORE THAN 2 DAYS. REPEAT IF NO BM MORE THAN 3 DAYS Guaifenesin (Guaifenesin) 100 Mg/5 Ml Liquid, 10 ML PO Q4H PRN for CHEST CONGESTION, (Reported) Ipratropium [place] (Atrovent Hfa) 12.9 Gm Hfa.aer.ad, 1 PUFF INH Q2H PRN for SHORTNESS OF BREATH, (Reported) Ketotifen Fumarate (Zaditor) 5 Ml Drops, 1-2 DROP OU BID PRN for ITCHY EYES, (Reported) Levalbuterol Hydrochloride (Xopenex Hfa) 15 Gm Hfa.aer.ad, 1 VIAL NEB Q2H PRN for SOB/WHEEZING, (Reported) Allergies Coded Allergies: Penicillins (Verified Allergy, Intermediate, rash, 01/23/21) PT HAS TOLERATE MX CEPHALOSPORINS IN THE PAST WITHOUT ISSUE clarithromycin (Verified Allergy, Intermediate, rash , 01/23/21) increase tregrtol level clavulanic acid (Verified Allergy, Intermediate, rash, 01/23/21) corticotropin (Verified Allergy, Intermediate, rash, 01/23/21) adrenocorticotrophic hormone (ACTH) lamotrigine (Verified Allergy, Intermediate, blisters/rash, 01/23/21) Influenza Virus Vaccines (Verified Allergy, Unknown, 01/23/21) amoxicillin (Verified Allergy, Unknown, 01/23/21) grapefruit (Verified Allergy, Unknown, 01/23/21) tetanus and diphtheria toxoids (Verified Allergy, Unknown, 01/23/21) JOANN LUNA DO Jan 30, 2021 15:34
[2021-01-30] MEDS ORDERED: KEPP1SOL PO (16:56)
== END 2021-01-30 13:37 | DRG 177 ==
LOC: M ED 15:47 → M ED INP 15:48 → ENRESERV 01-24 03:21 → M MS5PR 01-24 03:55 → M ICU 01-25 10:19 → M PCU 01-26 05:30 → M ICU 01-28 22:35
PROVIDERS: ADMIT General Practice; ATTEND Internal Medicine
PROC: 0DP07UZ Removal of Feeding Device from Upper Intestinal Tract, Via Natural or Artificial Opening (ICD-10-PCS; 2021-01-28)
PROC: 0D20XUZ Change Feeding Device in Upper Intestinal Tract, External Approach (ICD-10-PCS; principal; 2021-01-28 10:30)
DX: J69.0 Pneumonitis due to inhalation of food and vomit (principal); G80.0 Spastic quadriplegic cerebral palsy; J96.01 Acute respiratory failure with hypoxia; F73 Profound intellectual disabilities; I50.9 Heart failure, unspecified; J45.909 Unspecified asthma, uncomplicated; K21.9 Gastro-esophageal reflux disease without esophagitis; G40.909 Epilepsy, unspecified, not intractable, without status epilepticus; R68.0 Hypothermia, not associated with low environmental temperature; Z79.899 Other long term (current) drug therapy; Z88.0 Allergy status to penicillin; Z91.018 Allergy to other foods; Z88.7 Allergy status to serum and vaccine; Z88.8 Allergy status to other drugs, medicaments and biological substances; Z66 Do not resuscitate; K94.29 Other complications of gastrostomy

== ENCOUNTER 2021-01-30 14:57 | Emergency (ER) | payer MEDICARE, MEDICAID ==
[~2021-01-30] VITALS: Ht 157.5 cm; Wt 65.7 kg
[~2021-01-30 14:57] MED LIST changes: +METO5TAB2 PO
[2021-01-30] MEDS ORDERED: LEVO500T3 PO (15:16)
[2021-01-30] MEDS ORDERED: levETIRAcetam ORAL SOLUTION 500 MG/5 ML UDC GT ONE (16:30)
[2021-01-30] MEDS ORDERED: KEPP1SOL PO (16:56)
[2021-01-30 17:53] VITALS: BP 145/85
== END 2021-01-30 18:36 | disposition home or self-care (01) ==
LOC: M ED 14:57 → EDBD 14:57 → M ED 18:36
DX: G25.3 Myoclonus (principal); G80.0 Spastic quadriplegic cerebral palsy; Z93.1 Gastrostomy status; Z88.0 Allergy status to penicillin; Z88.1 Allergy status to other antibiotic agents; Z88.8 Allergy status to other drugs, medicaments and biological substances; Z88.7 Allergy status to serum and vaccine; Z79.899 Other long term (current) drug therapy

== ENCOUNTER 2021-03-27 07:48 | Emergency (ER) | payer MEDICARE, MEDICAID ==
[~2021-03-27 07:48] MED LIST changes: -CLIN150C15 GT; +CLIN150C17 GT; +LEVO500T3 PO; -SCOP1PAT2 TD; -SCOP1PAT2 TOP; +TRAN1DIS4 TD; +TRAN1DIS4 TOP
[2021-03-27 08:38] LABS: BASO % 0.3 % (0.0-1.0); EOS # 0.1 10^3/uL (0.0-0.5); EOS % 2.2 % (0.0-3.0); HEMATOCRIT 37.5 % (36.0-47.0); HEMOGLOBIN 12.1 g/dl (12.0-15.5); LYMPH % 30.8 % (24.0-44.0); MEAN CORPUSCULAR HEMOGLOBIN 34.8 pg (27.0-33.0); MEAN CORPUSCULAR HGB CONC 32.3 g/dl (32.0-36.5); MEAN CORPUSCULAR VOLUME 107.8 fl (80.0-96.0); MONO # 0.8 10^3/uL (0.0-0.8); MONO % 12.1 % (2.0-8.0); NEUTROPHILS # 3.5 10^3/uL (1.5-8.5); NEUTROPHILS % 53.8 % (36.0-66.0); PLATELET COUNT, AUTOMATED 267 10^3/uL (150-450); RED BLOOD COUNT 3.48 10^6/uL (4.00-5.40); WHITE BLOOD COUNT 6.5 10^3/uL (4.0-10.0)
--- NOTE | 2021-03-27 08:41 | REP ---
INDICATION: DYSPNEA/COUGH. COMPARISON: 01/28/2021 the latest prior also portable TECHNIQUE: Portable FINDINGS: The technique utilized in obtaining the radiograph has magnified the cardiac silhouette and accentuated the interstitial markings. There is cardiomegaly accentuated by technique status quo. The lung ramirez appear stable. No acute patchy parenchymal opacities or pleural effusions have developed. The osseous structures are stable IMPRESSION: No acute disease or evidence of significant change compared to the prior exam. <Electronically signed by Andrei Jovel > 03/27/21 0888
[2021-03-27 08:58] LABS: BLOOD UREA NITROGEN 30 MG/DL (7-18); CALCIUM LEVEL 9.5 MG/DL (8.5-10.1); CARBON DIOXIDE LEVEL 28 MEQ/L (21-32); CHLORIDE LEVEL 107 MEQ/L (98-107); CREATININE FOR GFR 0.64 MG/DL (0.55-1.30); GLOMERULAR FILTRATION RATE > 60.0 (>58); GLUCOSE, FASTING 92 MG/DL (70-100); POTASSIUM SERUM 4.5 MEQ/L (3.5-5.1); SODIUM LEVEL 142 MEQ/L (136-145)
[2021-03-27 11:00] VITALS: BP 124/74
== END 2021-03-27 11:19 | disposition home or self-care (01) ==
LOC: EDBD 07:48 → M ED 07:48
DX: J98.09 Other diseases of bronchus, not elsewhere classified (principal); Z88.7 Allergy status to serum and vaccine; Z88.0 Allergy status to penicillin; Z88.1 Allergy status to other antibiotic agents; Z91.018 Allergy to other foods

== ENCOUNTER → 2021-04-25 | Outpatient (CLI) | payer MEDICARE, MEDICAID ==
[~2021-04-25] MED LIST changes: +ISOVUE-300 61% 50ML VIAL As Ordered ONE; +LIDOCAINE 1% MDV 20ML VIAL As Ordered ONE
[2021-04-25 09:44] VITALS: BP 126/85
--- NOTE | 2021-04-25 15:18 | IRPON ---
IR Postoperative Note Date Of Procedure: Apr 25, 2021 Time Of Procedure: 15:16 IR Postoperative Note IR Gastrojejunostomy Catheter Exchange. Gastrojejunostomy catheter exchange with fluoroscopic guidance. Clinical Information: GJ dependent. GJ clogged. Physician: Dr. Weeks. Procedure: The patient's mother was advised of the benefits, risks, and alternatives of the procedure and informed consent was obtained. A time out was performed with verification of the patient's name, MRN, site of procedure, and type of procedure to be performed. The patient was positioned in the supine position on the angiographic table. The site was prepped and draped in the usual sterile fashion. Moderate sedation was not required. The physician spent 30 minutes of continuous [id number] time with the patient. A hub bander radiograph reveals a GJ catheter. The gastric and jejunal ports of the catheter were injected with contrast demonstrating that the tube is in correct position. A Glidewire advantage was advanced into the catheter, and confirmed partial clogging of the J port. The wire was manipulated through the catheter, under fluoroscopy guidance into the jejunum. The balloon was deflated and the original GJ catheter was removed over the wire. A new 22 [place] SUSAN gastrojejunostomy catheter was advanced over the wire, under fluoroscopy guidance, into the proximal jejunum. The retention balloon was inflated and then retracted against the anterior stomach wall. Appropriate positioning of the catheter was confirmed with injection of contrast through the gastric and jejunal ports. The retention disc was approximated to the skin of the abdominal wall. A sterile dressing was applied. The patient tolerated the procedure well and was returned to the PRU in stable condition. EBL: < 5 mL. Complications: None. Conclusion: Successful exchange of 22 [place] double lumen SUSAN gastrojejunostomy catheter. The catheter is ready for immediate use. Thank you for this referral NUPUR WEEKS MD Apr 25, 2021 15:18
== END ==
LOC: M IRPRO 09:00
PROVIDERS: ATTEND Radiology Diagnostic Radiology
DX: K94.23 Gastrostomy malfunction (principal)
CPT/HCPCS: 49452; C1729; C1769; Q9967

== ENCOUNTER → 2021-05-20 | Outpatient (CLI) | payer MEDICARE, MEDICAID ==
[~2021-05-20] MED LIST changes: -ISOVUE-300 61% 50ML VIAL As Ordered ONE; -LIDOCAINE 1% MDV 20ML VIAL As Ordered ONE
== END ==
LOC: M LAB 07:57
PROVIDERS: ATTEND Physician Assistant Medical
DX: G40.909 Epilepsy, unspecified, not intractable, without status epilepticus (principal)

== ENCOUNTER 2021-07-16 08:52 | Inpatient (IN) | payer MEDICARE, MEDICAID ==
[~2021-07-16] VITALS: Ht 144.8 cm; Wt 69.5 kg
[~2021-07-16 08:52] MED LIST changes: +CETI-25 GT; -CETI10TA8 GT; -LEVO500T3 PO; +LEVO500T4 PO
[2021-07-16 10:22] LABS: BASO % 0.3 % (0.0-1.0); EOS % 0.3 % (0.0-3.0); HEMATOCRIT 43.7 % (36.0-47.0); LYMPH # 1.2 10^3/uL (1.5-5.0); LYMPH % 12.8 % (24.0-44.0); MEAN CORPUSCULAR HEMOGLOBIN 34.7 pg (27.0-33.0); MEAN CORPUSCULAR VOLUME 108.2 fl (80.0-96.0); MONO # 0.9 10^3/uL (0.0-0.8); MONO % 9.6 % (2.0-8.0); NEUTROPHILS % 76.1 % (36.0-66.0); PLATELET COUNT, AUTOMATED 205 10^3/uL (150-450); RED BLOOD COUNT 4.04 10^6/uL (4.00-5.40); WHITE BLOOD COUNT 9.1 10^3/uL (4.0-10.0)
[2021-07-16 10:51] LABS: ALBUMIN 2.8 GM/DL (3.2-5.2); ALT/SGPT 73 U/L (12-78); BILIRUBIN,DIRECT 0.2 MG/DL (0.0-0.2); BILIRUBIN,TOTAL 0.5 MG/DL (0.2-1.0); BLOOD UREA NITROGEN 27 MG/DL (7-18); CALCIUM LEVEL 8.9 MG/DL (8.5-10.1); CARBON DIOXIDE LEVEL 23 MEQ/L (21-32); CHLORIDE LEVEL 105 MEQ/L (98-107); CREATININE FOR GFR 0.65 MG/DL (0.55-1.30); GLOMERULAR FILTRATION RATE > 60.0 (>58); GLUCOSE, FASTING 109 MG/DL (70-100); POTASSIUM SERUM 3.9 MEQ/L (3.5-5.1); SODIUM LEVEL 138 MEQ/L (136-145); TOTAL PROTEIN 8.1 GM/DL (6.4-8.2)
[2021-07-16] MEDS ORDERED: IPRA0.00 NEB (11:35)
[2021-07-16] MEDS ORDERED: CETI10CA13 GT (11:57)
[2021-07-16] MEDS ORDERED: REGL5TAB2 GT (11:59)
[2021-07-16] MEDS ORDERED: HOME MED LIST COMPLETE! XX SCH (12:00)
[2021-07-16] MEDS ORDERED: LevoFLOXacin IV 750 MG in IV 1 EA IV ONE (12:25)
[2021-07-16] MEDS ORDERED: LEVALBUTEROL 1.25 MG/0.5 ML CONCENTRATE NEB NEB ONE (13:05)
[2021-07-16] MEDS: NS 1,000 ML IV SCH ×2 (13:55→21:01)
[2021-07-16 14:15] LABS: NT-PRO BNP 221 PG/ML (<125)
[2021-07-16] MEDS ORDERED: LevoFLOXacin IV 500 MG in IV 1 EA IV SCH (15:00)
[2021-07-16 15:04] LABS: INR 1.07; PROTHROMBIN TIME 14.3 SECONDS (12.7-14.5)
[2021-07-16 15:06] LABS: PARTIAL THROMBOPLASTIN TIME 59.3 SECONDS (25.9-37.0)
[2021-07-16] MEDS ORDERED: LEVALBUTEROL HFA 45MCG/ACT 15 GM INHALER INH PRN (15:25)
[2021-07-16] MEDS ORDERED: DOCUSATE SOD LIQ 100MG/10ML UDC GT PRN (15:25)
[2021-07-16] MEDS ORDERED: guaiFENesin SYRUP 200 MG/10 ML UDC PO PRN (15:25)
[2021-07-16] MEDS ORDERED: ENTER DRUG NAME HERE (PATIENT'S OWN MED) OU PRN (15:50)
[2021-07-16] MEDS: CYPROHEPTADINE 4 MG TAB GT SCH ×3 (16:00→20:55)
[2021-07-16] MEDS ORDERED: PILL CUTTER 1 EACH XX PRN (16:40)
[2021-07-16 16:47] VITALS: BP 126/70
[2021-07-16 18:55] VITALS: BP 129/73
[2021-07-16 20:00] VITALS: BP 91/55
[2021-07-16] MEDS: LEVALBUTEROL 1.25 MG/0.5 ML CONCENTRATE NEB INH SCH (20:15)
[2021-07-16] MEDS: CETIRIZINE (ZyrTEC) 10 MG TAB GT SCH (20:52)
[2021-07-16] MEDS: MIRALAX *UNIT DOSE* 17GM PACKET GT SCH (20:52)
[2021-07-16] MEDS: CLINDAMYCIN TOP 1% SOLN 60 ML BTL TOP SCH (20:52)
[2021-07-16] MEDS: NYSTATIN 100,000 UNITS/GM TOPICAL PWD 15 GM TOP SCH (20:52)
[2021-07-16] MEDS: levETIRAcetam ORAL SOLUTION 500 MG/5 ML UDC GT SCH (20:52)
[2021-07-16] MEDS: FAMOTIDINE 20 MG TAB PO SCH (20:52)
[2021-07-16] MEDS: LACOSAMIDE 50 MG TAB (VIMPAT) GT SCH (20:53)
[2021-07-16] MEDS: CLORAZEPATE 3.75MG TAB GT SCH (20:53)
[2021-07-16 21:00] VITALS: BP 96/50
[2021-07-16] MEDS: metroNIDAZOLE 500 MG in IV 1 EA IV SCH (21:00)
[2021-07-16] MEDS: UNRESOLVED CLARIFICATION ENTRY XX SCH (21:59)
[2021-07-16 22:00] VITALS: BP 92/53
[2021-07-17] VITALS (20 sets, daily range): BP systolic 95–120; BP diastolic 54–74; O2SAT 86–96
[2021-07-17] MEDS: metroNIDAZOLE 500 MG in IV 1 EA IV SCH ×3 (02:00→18:46)
[2021-07-17 05:21] LABS: MEAN CORPUSCULAR HEMOGLOBIN 34.6 pg (27.0-33.0); MEAN CORPUSCULAR HGB CONC 31.6 g/dl (32.0-36.5); MEAN CORPUSCULAR VOLUME 109.5 fl (80.0-96.0); PLATELET COUNT, AUTOMATED 202 10^3/uL (150-450); RED BLOOD COUNT 3.47 10^6/uL (4.00-5.40); WHITE BLOOD COUNT 7.2 10^3/uL (4.0-10.0)
[2021-07-17 05:58] LABS: ALBUMIN 2.4 GM/DL (3.2-5.2); ALT/SGPT 57 U/L (12-78); BILIRUBIN,TOTAL 0.3 MG/DL (0.2-1.0); BLOOD UREA NITROGEN 21 MG/DL (7-18); CALCIUM LEVEL 8.9 MG/DL (8.5-10.1); CARBON DIOXIDE LEVEL 31 MEQ/L (21-32); CHLORIDE LEVEL 111 MEQ/L (98-107); CREATININE FOR GFR 0.61 MG/DL (0.55-1.30); GLOMERULAR FILTRATION RATE > 60.0 (>58); GLUCOSE, FASTING 124 MG/DL (70-100); POTASSIUM SERUM 4.2 MEQ/L (3.5-5.1); SODIUM LEVEL 144 MEQ/L (136-145); TOTAL PROTEIN 7.7 GM/DL (6.4-8.2)
[2021-07-17] MEDS: LEVALBUTEROL 1.25 MG/0.5 ML CONCENTRATE NEB INH SCH ×4 (07:32→19:49)
[2021-07-17] MEDS ORDERED: OLOPATADINE 0.1% OPHTH SOL 5ML(PATANOL) OU PRN (08:50)
[2021-07-17] MEDS: ENOXAPARIN 40MG/0.4ML SYRINGE (J1650 PER 10MG) SC SCH (09:51)
[2021-07-17] MEDS: CYPROHEPTADINE 4 MG TAB GT SCH ×3 (09:51→20:12)
[2021-07-17] MEDS: CLORAZEPATE 3.75MG TAB GT SCH ×2 (09:51→20:12)
[2021-07-17] MEDS: FAMOTIDINE 20 MG TAB PO SCH ×2 (09:52→20:12)
[2021-07-17] MEDS: levETIRAcetam ORAL SOLUTION 500 MG/5 ML UDC GT SCH ×2 (09:52→20:12)
[2021-07-17] MEDS: METOCLOPRAMIDE 5 MG TAB GT SCH (09:52)
[2021-07-17] MEDS: NYSTATIN 100,000 UNITS/GM TOPICAL PWD 15 GM TOP SCH ×2 (09:52→20:19)
[2021-07-17] MEDS: CLINDAMYCIN TOP 1% SOLN 60 ML BTL TOP SCH ×2 (09:53→20:18)
[2021-07-17] MEDS: LACOSAMIDE 50 MG TAB (VIMPAT) GT SCH ×2 (10:03→20:12)
[2021-07-17] MEDS ORDERED: LevoFLOXacin IV 750 MG in IV 1 EA IV SCH (12:00)
[2021-07-17] MEDS: SIMETHICONE 80MG CHEW TAB GT SCH ×3 (14:00→20:12)
[2021-07-17] MEDS: BISACODYL 10 MG SUPP PR SCH (20:12)
[2021-07-17] MEDS: MIRALAX *UNIT DOSE* 17GM PACKET GT SCH (20:12)
[2021-07-17] MEDS: CETIRIZINE (ZyrTEC) 10 MG TAB GT SCH (20:12)
[2021-07-18] VITALS: BP 98/62
[2021-07-18] MEDS: metroNIDAZOLE 500 MG in IV 1 EA IV SCH ×2 (01:48→11:19)
[2021-07-18 04:00] VITALS: BP 120/65
[2021-07-18 05:27] LABS: HEMATOCRIT 33.8 % (36.0-47.0); HEMOGLOBIN 10.5 g/dl (12.0-15.5); MEAN CORPUSCULAR HEMOGLOBIN 34.7 pg (27.0-33.0); MEAN CORPUSCULAR HGB CONC 31.1 g/dl (32.0-36.5); MEAN CORPUSCULAR VOLUME 111.6 fl (80.0-96.0); PLATELET COUNT, AUTOMATED 192 10^3/uL (150-450); RED BLOOD COUNT 3.03 10^6/uL (4.00-5.40); WHITE BLOOD COUNT 5.6 10^3/uL (4.0-10.0)
[2021-07-18 06:01] LABS: ALBUMIN 2.2 GM/DL (3.2-5.2); ALT/SGPT 43 U/L (12-78); BILIRUBIN,TOTAL 0.2 MG/DL (0.2-1.0); BLOOD UREA NITROGEN 18 MG/DL (7-18); CALCIUM LEVEL 8.7 MG/DL (8.5-10.1); CARBON DIOXIDE LEVEL 26 MEQ/L (21-32); CHLORIDE LEVEL 113 MEQ/L (98-107); CREATININE FOR GFR 0.52 MG/DL (0.55-1.30); GLOMERULAR FILTRATION RATE > 60.0 (>58); GLUCOSE, FASTING 129 MG/DL (70-100); POTASSIUM SERUM 3.8 MEQ/L (3.5-5.1); SODIUM LEVEL 145 MEQ/L (136-145); TOTAL PROTEIN 6.8 GM/DL (6.4-8.2)
[2021-07-18] MEDS: LEVALBUTEROL 1.25 MG/0.5 ML CONCENTRATE NEB INH SCH ×4 (07:53→19:47)
[2021-07-18 08:00] VITALS: BP 122/66
[2021-07-18] MEDS: levETIRAcetam ORAL SOLUTION 500 MG/5 ML UDC GT SCH ×2 (08:46→21:00)
[2021-07-18] MEDS: NYSTATIN 100,000 UNITS/GM TOPICAL PWD 15 GM TOP SCH ×2 (08:46→21:00)
[2021-07-18] MEDS: SIMETHICONE 80MG CHEW TAB GT SCH ×4 (08:46→20:56)
[2021-07-18] MEDS: METOCLOPRAMIDE 5 MG TAB GT SCH (08:47)
[2021-07-18] MEDS: CYPROHEPTADINE 4 MG TAB GT SCH ×3 (08:47→20:56)
[2021-07-18] MEDS: SCOPOLAMINE 1MG TRANSDERMAL PATCH TD SCH (08:47)
[2021-07-18] MEDS: BISACODYL 10 MG SUPP PR SCH ×2 (08:47→21:00)
[2021-07-18] MEDS: FAMOTIDINE 20 MG TAB PO SCH ×2 (08:48→20:59)
[2021-07-18] MEDS: CLORAZEPATE 3.75MG TAB GT SCH ×2 (08:48→21:00)
[2021-07-18] MEDS: LACOSAMIDE 50 MG TAB (VIMPAT) GT SCH ×2 (08:48→20:58)
[2021-07-18] MEDS: ENOXAPARIN 40MG/0.4ML SYRINGE (J1650 PER 10MG) SC SCH (08:48)
[2021-07-18] MEDS: CLINDAMYCIN TOP 1% SOLN 60 ML BTL TOP SCH ×2 (09:00→20:59)
[2021-07-18] MEDS: UNRESOLVED CLARIFICATION ENTRY XX SCH (11:05)
[2021-07-18 12:00] VITALS: BP 120/64
[2021-07-18] MEDS: CEFEPIME HCL 2 GM in D5W MINI-BAG PLUS 50 ML IV SCH ×2 (12:57→20:40)
[2021-07-18 16:00] VITALS: BP 120/62
[2021-07-18 20:00] VITALS: BP 119/65
[2021-07-18] MEDS: MIRALAX *UNIT DOSE* 17GM PACKET GT SCH (20:56)
[2021-07-18] MEDS: CETIRIZINE (ZyrTEC) 10 MG TAB GT SCH (20:58)
[2021-07-19] VITALS: BP 147/77
[2021-07-19] MEDS: CEFEPIME HCL 2 GM in D5W MINI-BAG PLUS 50 ML IV SCH ×3 (04:06→21:47)
[2021-07-19] MEDS: LEVALBUTEROL 1.25 MG/0.5 ML CONCENTRATE NEB INH SCH ×4 (06:19→20:22)
[2021-07-19 08:27] VITALS: BP 154/88
[2021-07-19] MEDS: LACOSAMIDE 50 MG TAB (VIMPAT) GT SCH ×2 (08:27→22:35)
[2021-07-19] MEDS: METOCLOPRAMIDE 5 MG TAB GT SCH (08:27)
[2021-07-19] MEDS: levETIRAcetam ORAL SOLUTION 500 MG/5 ML UDC GT SCH (08:27)
[2021-07-19] MEDS: UNRESOLVED CLARIFICATION ENTRY XX SCH (08:27)
[2021-07-19] MEDS: CYPROHEPTADINE 4 MG TAB GT SCH ×3 (08:27→22:35)
[2021-07-19] MEDS: FAMOTIDINE 20 MG TAB PO SCH (08:27)
[2021-07-19] MEDS: SIMETHICONE 80MG CHEW TAB GT SCH ×4 (08:27→22:33)
[2021-07-19] MEDS: CLINDAMYCIN TOP 1% SOLN 60 ML BTL TOP SCH ×2 (08:28→21:50)
[2021-07-19] MEDS: NYSTATIN 100,000 UNITS/GM TOPICAL PWD 15 GM TOP SCH ×2 (08:28→21:49)
[2021-07-19] MEDS: ENOXAPARIN 40MG/0.4ML SYRINGE (J1650 PER 10MG) SC SCH (08:28)
[2021-07-19] MEDS: BISACODYL 10 MG SUPP PR SCH ×2 (08:28→19:26)
[2021-07-19 08:33] LABS: HEMATOCRIT 32.9 % (36.0-47.0); HEMOGLOBIN 10.3 g/dl (12.0-15.5); MEAN CORPUSCULAR HEMOGLOBIN 34.6 pg (27.0-33.0); MEAN CORPUSCULAR HGB CONC 31.3 g/dl (32.0-36.5); MEAN CORPUSCULAR VOLUME 110.4 fl (80.0-96.0); PLATELET COUNT, AUTOMATED 198 10^3/uL (150-450); RED BLOOD COUNT 2.98 10^6/uL (4.00-5.40); WHITE BLOOD COUNT 5.5 10^3/uL (4.0-10.0)
[2021-07-19] MEDS: CLORAZEPATE 3.75MG TAB GT SCH ×2 (08:33→22:35)
[2021-07-19 09:00] LABS: ALBUMIN 2.3 GM/DL (3.2-5.2); ALT/SGPT 44 U/L (12-78); BILIRUBIN,TOTAL 0.2 MG/DL (0.2-1.0); BLOOD UREA NITROGEN 20 MG/DL (7-18); CALCIUM LEVEL 8.9 MG/DL (8.5-10.1); CARBON DIOXIDE LEVEL 27 MEQ/L (21-32); CHLORIDE LEVEL 114 MEQ/L (98-107); CREATININE FOR GFR 0.36 MG/DL (0.55-1.30); GLOMERULAR FILTRATION RATE > 60.0 (>58); GLUCOSE, FASTING 100 MG/DL (70-100); POTASSIUM SERUM 4.6 MEQ/L (3.5-5.1); SODIUM LEVEL 148 MEQ/L (136-145); TOTAL PROTEIN 6.1 GM/DL (6.4-8.2)
[2021-07-19 12:19] VITALS: BP 127/86
[2021-07-19] MEDS: MIRALAX *UNIT DOSE* 17GM PACKET GT SCH (19:32)
[2021-07-19 21:00] VITALS: O2SAT 96
[2021-07-19] MEDS: CETIRIZINE (ZyrTEC) 10 MG TAB GT SCH (21:00)
[2021-07-19 21:16] VITALS: BP 116/73
[2021-07-19] MEDS ORDERED: levETIRAcetam INJection 500 MG in D5W MINI-BAG PLUS 100 ML IV SCH (22:00)
[2021-07-20] MEDS: CEFEPIME HCL 2 GM in D5W MINI-BAG PLUS 50 ML IV SCH ×3 (03:05→21:23)
[2021-07-20 06:00] VITALS: BP 110/64
[2021-07-20] MEDS: LEVALBUTEROL 1.25 MG/0.5 ML CONCENTRATE NEB INH SCH ×4 (07:38→19:58)
[2021-07-20 08:17] LABS: HEMATOCRIT 36.3 % (36.0-47.0); HEMOGLOBIN 11.3 g/dl (12.0-15.5); MEAN CORPUSCULAR HEMOGLOBIN 34.8 pg (27.0-33.0); MEAN CORPUSCULAR HGB CONC 31.1 g/dl (32.0-36.5); MEAN CORPUSCULAR VOLUME 111.7 fl (80.0-96.0); PLATELET COUNT, AUTOMATED 198 10^3/uL (150-450); RED BLOOD COUNT 3.25 10^6/uL (4.00-5.40); WHITE BLOOD COUNT 4.5 10^3/uL (4.0-10.0)
[2021-07-20 08:34] LABS: ALBUMIN 2.3 GM/DL (3.2-5.2); ALT/SGPT 56 U/L (12-78); BILIRUBIN,TOTAL 0.2 MG/DL (0.2-1.0); BLOOD UREA NITROGEN 20 MG/DL (7-18); C REACTIVE PROTEIN QUANTITATIV 7.03 MG/DL (0.00-0.30); CALCIUM LEVEL 8.9 MG/DL (8.5-10.1); CARBON DIOXIDE LEVEL 30 MEQ/L (21-32); CHLORIDE LEVEL 113 MEQ/L (98-107); CREATININE FOR GFR 0.36 MG/DL (0.55-1.30); GLOMERULAR FILTRATION RATE > 60.0 (>58); GLUCOSE, FASTING 84 MG/DL (70-100); POTASSIUM SERUM 4.4 MEQ/L (3.5-5.1); SODIUM LEVEL 147 MEQ/L (136-145); TOTAL PROTEIN 6.3 GM/DL (6.4-8.2)
[2021-07-20] MEDS ORDERED: FAMOTIDINE INJ 20MG/2ML VIAL (S0028 PER 1) IVP SCH (09:00)
[2021-07-20] MEDS: FAMOTIDINE 20 MG TAB GT SCH ×2 (09:00→21:21)
[2021-07-20] MEDS ORDERED: METOCLOPRAMIDE INJ 10MG/2ML VIAL (J2765 PER 1) IV SCH (09:00)
[2021-07-20] MEDS: BISACODYL 10 MG SUPP PR SCH ×2 (09:00→21:00)
[2021-07-20] MEDS: ENOXAPARIN 40MG/0.4ML SYRINGE (J1650 PER 10MG) SC SCH (10:37)
[2021-07-20] MEDS: SIMETHICONE 40MG/0.6ML DROPS 30ML GT SCH ×4 (10:38→21:23)
[2021-07-20] MEDS: CYPROHEPTADINE 4 MG TAB GT SCH ×3 (10:39→21:21)
[2021-07-20] MEDS: CLORAZEPATE 3.75MG TAB GT SCH ×2 (10:39→21:21)
[2021-07-20] MEDS: LACOSAMIDE 50 MG TAB (VIMPAT) GT SCH ×2 (10:40→21:21)
[2021-07-20] MEDS: levETIRAcetam ORAL SOLUTION 500 MG/5 ML UDC GT SCH ×2 (10:42→21:20)
[2021-07-20] MEDS: METOCLOPRAMIDE HCL LIQUID 10 MG/10 ML UDC GT SCH (10:42)
[2021-07-20] MEDS: CLINDAMYCIN TOP 1% SOLN 60 ML BTL TOP SCH ×2 (10:44→21:22)
[2021-07-20] MEDS: NYSTATIN 100,000 UNITS/GM TOPICAL PWD 15 GM TOP SCH ×2 (10:44→21:23)
[2021-07-20 14:00] VITALS: BP 99/56
[2021-07-20 21:00] VITALS: O2SAT 96
[2021-07-20] MEDS: MIRALAX *UNIT DOSE* 17GM PACKET GT SCH (21:00)
[2021-07-20] MEDS: CETIRIZINE (ZyrTEC) 10 MG TAB GT SCH (21:20)
[2021-07-20] MEDS ORDERED: D5W 1,000 ML IV SCH (21:55)
[2021-07-20 22:00] VITALS: BP 124/78
[2021-07-21] MEDS ORDERED: FUROSEMIDE 20MG/2ML VIAL (J1940) IV ONE (02:00)
[2021-07-21] MEDS: CEFEPIME HCL 2 GM in D5W MINI-BAG PLUS 50 ML IV SCH ×3 (03:25→20:16)
[2021-07-21 06:00] VITALS: BP 128/75; O2SAT 96
[2021-07-21 07:04] LABS: HEMATOCRIT 39.4 % (36.0-47.0); HEMOGLOBIN 12.6 g/dl (12.0-15.5); MEAN CORPUSCULAR HEMOGLOBIN 34.5 pg (27.0-33.0); MEAN CORPUSCULAR VOLUME 107.9 fl (80.0-96.0); PLATELET COUNT, AUTOMATED 205 10^3/uL (150-450); RED BLOOD COUNT 3.65 10^6/uL (4.00-5.40); WHITE BLOOD COUNT 4.5 10^3/uL (4.0-10.0)
[2021-07-21] MEDS: LEVALBUTEROL 1.25 MG/0.5 ML CONCENTRATE NEB INH SCH ×4 (08:01→19:52)
[2021-07-21] MEDS: D5W/0.45% SODIUM CHLORIDE 1,000 ML IV SCH ×2 (08:09→20:19)
[2021-07-21 08:17] LABS: ALBUMIN 2.6 GM/DL (3.2-5.2); ALT/SGPT 82 U/L (12-78); BILIRUBIN,TOTAL 0.3 MG/DL (0.2-1.0); BLOOD UREA NITROGEN 18 MG/DL (7-18); CALCIUM LEVEL 9.7 MG/DL (8.5-10.1); CARBON DIOXIDE LEVEL 31 MEQ/L (21-32); CHLORIDE LEVEL 106 MEQ/L (98-107); CREATININE FOR GFR 0.52 MG/DL (0.55-1.30); GLOMERULAR FILTRATION RATE > 60.0 (>58); GLUCOSE, FASTING 102 MG/DL (70-100); POTASSIUM SERUM 3.9 MEQ/L (3.5-5.1); SODIUM LEVEL 142 MEQ/L (136-145); TOTAL PROTEIN 8.1 GM/DL (6.4-8.2)
[2021-07-21] MEDS: BISACODYL 10 MG SUPP PR SCH ×2 (08:55→20:18)
[2021-07-21] MEDS: levETIRAcetam ORAL SOLUTION 500 MG/5 ML UDC GT SCH (09:26)
[2021-07-21] MEDS: METOCLOPRAMIDE HCL LIQUID 10 MG/10 ML UDC GT SCH (09:26)
[2021-07-21] MEDS: CYPROHEPTADINE 4 MG TAB GT SCH ×3 (09:27→20:15)
[2021-07-21] MEDS: ENOXAPARIN 40MG/0.4ML SYRINGE (J1650 PER 10MG) SC SCH (09:27)
[2021-07-21] MEDS: LACOSAMIDE 50 MG TAB (VIMPAT) GT SCH ×2 (09:27→20:15)
[2021-07-21] MEDS: FAMOTIDINE 20 MG TAB GT SCH ×2 (09:27→20:18)
[2021-07-21] MEDS: CLORAZEPATE 3.75MG TAB GT SCH ×2 (09:27→20:15)
[2021-07-21] MEDS: CLINDAMYCIN TOP 1% SOLN 60 ML BTL TOP SCH ×2 (09:28→20:18)
[2021-07-21] MEDS: SCOPOLAMINE 1MG TRANSDERMAL PATCH TD SCH (09:28)
[2021-07-21] MEDS: SIMETHICONE 40MG/0.6ML DROPS 30ML GT SCH ×4 (09:29→20:16)
[2021-07-21] MEDS: NYSTATIN 100,000 UNITS/GM TOPICAL PWD 15 GM TOP SCH ×2 (09:29→20:17)
[2021-07-21 14:00] VITALS: BP 134/78
[2021-07-21] MEDS: levETIRAcetam INJection 500 MG in D5W MINI-BAG PLUS 100 ML IV SCH (20:13)
[2021-07-21] MEDS: CETIRIZINE (ZyrTEC) 10 MG TAB GT SCH (20:15)
[2021-07-21] MEDS: MIRALAX *UNIT DOSE* 17GM PACKET GT SCH (20:18)
[2021-07-21 21:00] VITALS: O2SAT 92
[2021-07-21 22:00] VITALS: BP 137/78
[2021-07-22] MEDS: CEFEPIME HCL 2 GM in D5W MINI-BAG PLUS 50 ML IV SCH ×3 (04:26→21:03)
[2021-07-22 06:00] VITALS: BP 107/59
[2021-07-22 06:13] LABS: HEMATOCRIT 35.9 % (36.0-47.0); HEMOGLOBIN 11.4 g/dl (12.0-15.5); MEAN CORPUSCULAR HEMOGLOBIN 34.8 pg (27.0-33.0); MEAN CORPUSCULAR HGB CONC 31.8 g/dl (32.0-36.5); MEAN CORPUSCULAR VOLUME 109.5 fl (80.0-96.0); PLATELET COUNT, AUTOMATED 173 10^3/uL (150-450); RED BLOOD COUNT 3.28 10^6/uL (4.00-5.40); WHITE BLOOD COUNT 4.5 10^3/uL (4.0-10.0)
[2021-07-22 06:36] LABS: ALBUMIN 2.1 GM/DL (3.2-5.2); ALT/SGPT 64 U/L (12-78); BILIRUBIN,TOTAL 0.2 MG/DL (0.2-1.0); BLOOD UREA NITROGEN 18 MG/DL (7-18); CALCIUM LEVEL 8.5 MG/DL (8.5-10.1); CARBON DIOXIDE LEVEL 29 MEQ/L (21-32); CHLORIDE LEVEL 108 MEQ/L (98-107); CREATININE FOR GFR 0.48 MG/DL (0.55-1.30); GLOMERULAR FILTRATION RATE > 60.0 (>58); GLUCOSE, FASTING 127 MG/DL (70-100); POTASSIUM SERUM 4.3 MEQ/L (3.5-5.1); SODIUM LEVEL 142 MEQ/L (136-145); TOTAL PROTEIN 6.4 GM/DL (6.4-8.2)
[2021-07-22] MEDS: LEVALBUTEROL 1.25 MG/0.5 ML CONCENTRATE NEB INH SCH ×3 (07:26→20:19)
[2021-07-22] MEDS: BISACODYL 10 MG SUPP PR SCH ×2 (09:00→22:00)
[2021-07-22] MEDS: levETIRAcetam INJection 500 MG in D5W MINI-BAG PLUS 100 ML IV SCH (09:17)
[2021-07-22] MEDS: LACOSAMIDE 50 MG TAB (VIMPAT) GT SCH ×2 (09:18→21:58)
[2021-07-22] MEDS: METOCLOPRAMIDE HCL LIQUID 10 MG/10 ML UDC GT SCH (09:18)
[2021-07-22] MEDS: FAMOTIDINE 20 MG TAB GT SCH ×2 (09:19→22:05)
[2021-07-22] MEDS: CYPROHEPTADINE 4 MG TAB GT SCH ×3 (09:19→21:58)
[2021-07-22] MEDS: CLORAZEPATE 3.75MG TAB GT SCH ×2 (09:19→21:57)
[2021-07-22] MEDS: CLINDAMYCIN TOP 1% SOLN 60 ML BTL TOP SCH ×2 (09:19→22:01)
[2021-07-22] MEDS: SIMETHICONE 40MG/0.6ML DROPS 30ML GT SCH ×4 (09:20→21:57)
[2021-07-22] MEDS: NYSTATIN 100,000 UNITS/GM TOPICAL PWD 15 GM TOP SCH ×2 (09:20→22:01)
[2021-07-22] MEDS: D5W/0.45% SODIUM CHLORIDE 1,000 ML IV SCH (13:31)
[2021-07-22 14:00] VITALS: BP 126/75
[2021-07-22] MEDS ORDERED: ENOXAPARIN 40MG/0.4ML SYRINGE (J1650 PER 10MG) SC SCH (21:00)
[2021-07-22 21:37] VITALS: BP 119/72
[2021-07-22] MEDS: MIRALAX *UNIT DOSE* 17GM PACKET GT SCH (21:57)
[2021-07-22] MEDS: levETIRAcetam ORAL SOLUTION 500 MG/5 ML UDC GT SCH (21:57)
[2021-07-22] MEDS: CETIRIZINE (ZyrTEC) 10 MG TAB GT SCH (21:58)
[2021-07-23 01:08] VITALS: O2SAT 94
[2021-07-23 04:00] VITALS: BP 121/70
[2021-07-23] MEDS: D5W/0.45% SODIUM CHLORIDE 1,000 ML IV SCH (05:00)
[2021-07-23] MEDS: CEFEPIME HCL 2 GM in D5W MINI-BAG PLUS 50 ML IV SCH ×2 (05:02→11:21)
[2021-07-23 06:14] LABS: HEMATOCRIT 36.1 % (36.0-47.0); HEMOGLOBIN 11.3 g/dl (12.0-15.5); MEAN CORPUSCULAR HEMOGLOBIN 34.7 pg (27.0-33.0); MEAN CORPUSCULAR HGB CONC 31.3 g/dl (32.0-36.5); MEAN CORPUSCULAR VOLUME 110.7 fl (80.0-96.0); PLATELET COUNT, AUTOMATED 158 10^3/uL (150-450); RED BLOOD COUNT 3.26 10^6/uL (4.00-5.40); WHITE BLOOD COUNT 4.1 10^3/uL (4.0-10.0)
[2021-07-23 06:50] LABS: ALBUMIN 2.1 GM/DL (3.2-5.2); ALT/SGPT 60 U/L (12-78); BILIRUBIN,TOTAL < 0.1 MG/DL (0.2-1.0); BLOOD UREA NITROGEN 19 MG/DL (7-18); C REACTIVE PROTEIN QUANTITATIV 2.77 MG/DL (0.00-0.30); CALCIUM LEVEL 8.7 MG/DL (8.5-10.1); CARBON DIOXIDE LEVEL 28 MEQ/L (21-32); CHLORIDE LEVEL 112 MEQ/L (98-107); CREATININE FOR GFR 0.39 MG/DL (0.55-1.30); GLOMERULAR FILTRATION RATE > 60.0 (>58); GLUCOSE, FASTING 102 MG/DL (70-100); POTASSIUM SERUM 4.2 MEQ/L (3.5-5.1); SODIUM LEVEL 142 MEQ/L (136-145)
[2021-07-23] MEDS: LEVALBUTEROL 1.25 MG/0.5 ML CONCENTRATE NEB INH SCH ×2 (08:09→12:16)
[2021-07-23] MEDS: SIMETHICONE 40MG/0.6ML DROPS 30ML GT SCH ×2 (08:29→12:16)
[2021-07-23] MEDS: CYPROHEPTADINE 4 MG TAB GT SCH (08:30)
[2021-07-23] MEDS: METOCLOPRAMIDE HCL LIQUID 10 MG/10 ML UDC GT SCH (08:30)
[2021-07-23] MEDS: LACOSAMIDE 50 MG TAB (VIMPAT) GT SCH (08:30)
[2021-07-23] MEDS: FAMOTIDINE 20 MG TAB GT SCH (08:30)
[2021-07-23] MEDS: levETIRAcetam ORAL SOLUTION 500 MG/5 ML UDC GT SCH (08:30)
[2021-07-23] MEDS: BISACODYL 10 MG SUPP PR SCH (08:30)
[2021-07-23] MEDS: CLORAZEPATE 3.75MG TAB GT SCH (08:30)
[2021-07-23] MEDS: NYSTATIN 100,000 UNITS/GM TOPICAL PWD 15 GM TOP SCH (08:31)
[2021-07-23] MEDS: CLINDAMYCIN TOP 1% SOLN 60 ML BTL TOP SCH (08:31)
[2021-07-23] MEDS ORDERED: SCOPOLAMINE 1MG TRANSDERMAL PATCH TOP SCH (09:00)
== END 2021-07-23 13:55 | disposition home or self-care (01) | DRG 871 ==
LOC: EDBD 08:52 → M ED 08:52 → M ED INP 13:52 → ENRESERV 14:08 → M MSPAV 16:36 → M PCU 18:06 → M MS5PR 07-19 16:04
PROVIDERS: ADMIT Internal Medicine; ATTEND General Practice
PROC: 0D20XUZ Change Feeding Device in Upper Intestinal Tract, External Approach (ICD-10-PCS; principal; 2021-07-22 12:00)
DX: A41.9 Sepsis, unspecified organism (principal); G80.0 Spastic quadriplegic cerebral palsy; J69.0 Pneumonitis due to inhalation of food and vomit; F73 Profound intellectual disabilities; G40.804 Other epilepsy, intractable, without status epilepticus; I50.32 Chronic diastolic (congestive) heart failure; G93.1 Anoxic brain damage, not elsewhere classified; E87.2 Acidosis; K94.23 Gastrostomy malfunction; R68.0 Hypothermia, not associated with low environmental temperature; J45.909 Unspecified asthma, uncomplicated; Z93.1 Gastrostomy status; Z79.899 Other long term (current) drug therapy; Z88.0 Allergy status to penicillin; Z91.018 Allergy to other foods; Z88.7 Allergy status to serum and vaccine; R33.9 Retention of urine, unspecified

== ENCOUNTER 2021-07-28 16:29 | Inpatient (IN) | payer MEDICARE, MEDICAID ==
[~2021-07-28] VITALS: Ht 170.2 cm; Wt 73.9 kg
[2021-07-28] MEDS: CETIRIZINE (ZyrTEC) 10 MG TAB GT SCH
[~2021-07-28 16:29] MED LIST changes: +CETI10CA13 GT; -FLUC150T GT; +FLUC150T9 GT; +IPRA0.00 NEB; +REGL5TAB2 GT
[2021-07-28] MEDS ORDERED: dexameTHASONE 20MG/5ML VIAL (J1100 PER 1MG) IV ONE (16:45)
[2021-07-28] MEDS: COMBIVENT RESPIMAT 100-20MCG INHALER 4GM INH SCH ×3 (16:47→17:25)
[2021-07-28 17:27] LABS: VENOUS BASE EXCESS -2.7 (-2.0-2.0); VENOUS HCO3 24.6 MEQ/L (23.0-27.0); VENOUS O2 SATURATION 96.1 % (60.0-80.0); VENOUS PARTIAL PRESSURE CO2 52.8 mmHg (38.0-50.0); VENOUS PARTIAL PRESSURE O2 92.6 mmHg (30.0-50.0); VENOUS PH 7.286 UNITS (7.330-7.430); VENOUS STANDARD HCO3 22.2 MEQ/L; VENOUS TOTAL CO2 26.2 MEQ/L (24.0-28.0)
[2021-07-28 17:28] LABS: BASO % 0.3 % (0.0-1.0); EOS # 0.2 10^3/uL (0.0-0.5); EOS % 1.9 % (0.0-3.0); HEMATOCRIT 40.9 % (36.0-47.0); HEMOGLOBIN 12.9 g/dl (12.0-15.5); LYMPH # 1.5 10^3/uL (1.5-5.0); LYMPH % 13.2 % (24.0-44.0); MEAN CORPUSCULAR HEMOGLOBIN 34.4 pg (27.0-33.0); MEAN CORPUSCULAR HGB CONC 31.5 g/dl (32.0-36.5); MEAN CORPUSCULAR VOLUME 109.1 fl (80.0-96.0); MONO # 0.5 10^3/uL (0.0-0.8); MONO % 4.5 % (2.0-8.0); NEUTROPHILS # 9.1 10^3/uL (1.5-8.5); NEUTROPHILS % 79.9 % (36.0-66.0); PLATELET COUNT, AUTOMATED 223 10^3/uL (150-450); RED BLOOD COUNT 3.75 10^6/uL (4.00-5.40); WHITE BLOOD COUNT 11.3 10^3/uL (4.0-10.0)
[2021-07-28] MEDS ORDERED: LevoFLOXacin IV 750 MG in IV 1 EA IV ONE (17:40)
[2021-07-28] MEDS ORDERED: NS 500 ML IV SCH (17:50)
[2021-07-28] MEDS ORDERED: CEFEPIME HCL 2 GM in D5W MINI-BAG PLUS 50 ML IV ONE (18:00)
[2021-07-28 18:16] LABS: ABG BASE EXCESS 0.4 (-2.0-2.0); ABG HCO3 27.1 MEQ/L (22.0-26.0); ABG O2 SATURATION 94.3 % (95.0-99.0); ABG PARTIAL PRESSURE CO2 52.3 mmHg (35.0-45.0); ABG PARTIAL PRESSURE O2 77.5 mmHg (75.0-100.0); ABG STANDARD HCO3 24.8 MEQ/L (22.0-26.0); ABG TOTAL CO2 28.7 MEQ/L (22.0-29.0); ABG pH (ARTERIAL) 7.332 UNITS (7.350-7.450)
[2021-07-28 18:26] LABS: ALT/SGPT 57 U/L (12-78); BILIRUBIN,DIRECT < 0.1 MG/DL (0.0-0.2); BILIRUBIN,TOTAL 0.2 MG/DL (0.2-1.0); BLOOD UREA NITROGEN 22 MG/DL (7-18); CALCIUM LEVEL 9.2 MG/DL (8.5-10.1); CARBON DIOXIDE LEVEL 27 MEQ/L (21-32); CHLORIDE LEVEL 109 MEQ/L (98-107); CREATININE FOR GFR 0.49 MG/DL (0.55-1.30); GLOMERULAR FILTRATION RATE > 60.0 (>58); GLUCOSE, FASTING 103 MG/DL (70-100); LIPASE 186 U/L (73-393); NT-PRO BNP 48 PG/ML (<125); POTASSIUM SERUM 4.7 MEQ/L (3.5-5.1); SODIUM LEVEL 143 MEQ/L (136-145); THYROXINE (T4) 14.4 UG/DL (4.5-12.0); TOTAL PROTEIN 8.1 GM/DL (6.4-8.2)
[2021-07-28] MEDS ORDERED: ACETAMINOPHEN TAB 650MG DOSE (2X325MG) PO PRN (19:10)
[2021-07-28] MEDS ORDERED: ALBUTEROL 90 MCG/ACT 8GM HFA INHALER INH PRN (19:10)
[2021-07-28] MEDS: IPRATROPIUM 0.5MG/ALBUTEROL 2.5MG INH SOL UD 3ML (DUONEB) INH SCH ×2 (20:00→23:41)
[2021-07-28] MEDS: NS 1,000 ML IV SCH (20:02)
[2021-07-28 20:47] LABS: INR 1.05; PROTHROMBIN TIME 14.1 SECONDS (12.7-14.5)
[2021-07-28 20:48] LABS: PARTIAL THROMBOPLASTIN TIME 44.5 SECONDS (25.9-37.0)
[2021-07-28] MEDS: LACOSAMIDE 50 MG TAB (VIMPAT) GT SCH (21:00)
[2021-07-28] MEDS: CYPROHEPTADINE 4 MG TAB GT SCH (21:00)
[2021-07-28] MEDS: FAMOTIDINE 40MG/5ML ORAL SUSPENSON 50ML BOTTLE GT SCH (21:00)
[2021-07-28] MEDS: CLORAZEPATE 3.75MG TAB GT SCH (21:00)
[2021-07-28] MEDS ORDERED: DOCUSATE SODIUM 100MG CAPSULE PO SCH (21:00)
[2021-07-28 22:30] VITALS: BP 132/82
[2021-07-28] MEDS ORDERED: BENE6POW GT (22:31)
[2021-07-28] MEDS ORDERED: [UNRECOGNIZED DRUG - CODE] TOP (22:31)
[2021-07-28] MEDS ORDERED: IPRA2IN NEB (22:31)
[2021-07-28] MEDS ORDERED: HEARTAB2 GT (22:31)
[2021-07-28] MEDS ORDERED: DULC10SU2 PR (22:31)
[2021-07-28] MEDS ORDERED: HOME MED LIST COMPLETE! XX SCH (22:35)
[2021-07-28] MEDS ORDERED: DOCUSATE SOD LIQ 100MG/10ML UDC GT PRN (22:50)
[2021-07-28] MEDS ORDERED: ACETAMINOPHEN TAB 650MG DOSE (2X325MG) GT PRN (23:10)
[2021-07-28] MEDS ORDERED: PILL CUTTER 1 EACH XX PRN (23:20)
[2021-07-29] VITALS: BP 106/60
[2021-07-29] MEDS ORDERED: OLANZapine INTRAMUSCULAR 10MG VIAL IM ONE (01:00)
[2021-07-29] MEDS: CEFEPIME HCL 2 GM in D5W 50 ML IV SCH ×3 (03:00→18:41)
[2021-07-29] MEDS: IPRATROPIUM 0.5MG/ALBUTEROL 2.5MG INH SOL UD 3ML (DUONEB) INH SCH (03:41)
[2021-07-29 04:00] VITALS: BP 100/56
[2021-07-29 06:12] LABS: HEMOGLOBIN 12.3 g/dl (12.0-15.5); MEAN CORPUSCULAR HEMOGLOBIN 34.1 pg (27.0-33.0); MEAN CORPUSCULAR HGB CONC 30.8 g/dl (32.0-36.5); MEAN CORPUSCULAR VOLUME 110.8 fl (80.0-96.0); PLATELET COUNT, AUTOMATED 227 10^3/uL (150-450); RED BLOOD COUNT 3.61 10^6/uL (4.00-5.40); WHITE BLOOD COUNT 21.5 10^3/uL (4.0-10.0)
[2021-07-29 06:37] LABS: BLOOD UREA NITROGEN 27 MG/DL (7-18); CALCIUM LEVEL 9.7 MG/DL (8.5-10.1); CARBON DIOXIDE LEVEL 27 MEQ/L (21-32); CHLORIDE LEVEL 108 MEQ/L (98-107); CREATININE FOR GFR 0.62 MG/DL (0.55-1.30); GLOMERULAR FILTRATION RATE > 60.0 (>58); GLUCOSE, FASTING 130 MG/DL (70-100); MAGNESIUM LEVEL 2.6 MG/DL (1.8-2.4); POTASSIUM SERUM 5.4 MEQ/L (3.5-5.1); SODIUM LEVEL 140 MEQ/L (136-145)
[2021-07-29] MEDS: LEVALBUTEROL 1.25 MG/0.5 ML CONCENTRATE NEB INH SCH ×4 (07:56→20:06)
[2021-07-29 08:05] VITALS: BP 122/77
[2021-07-29] MEDS: FAMOTIDINE 40MG/5ML ORAL SUSPENSON 50ML BOTTLE GT SCH ×2 (09:57→20:33)
[2021-07-29] MEDS: CLORAZEPATE 3.75MG TAB GT SCH ×2 (09:57→20:33)
[2021-07-29] MEDS: METOCLOPRAMIDE 5 MG TAB GT SCH ×2 (10:06→20:33)
[2021-07-29] MEDS: LACTOBACILLUS ACIDOPHILUS CAP (BACID) PO SCH (10:07)
[2021-07-29] MEDS: LACOSAMIDE 50 MG TAB (VIMPAT) GT SCH ×2 (10:07→20:33)
[2021-07-29] MEDS: ENOXAPARIN 40MG/0.4ML SYRINGE (J1650 PER 10MG) SC SCH (10:08)
[2021-07-29] MEDS: NYSTATIN 100,000 UNITS/GM TOPICAL PWD 15 GM TOP SCH ×2 (10:08→20:34)
[2021-07-29] MEDS: CYPROHEPTADINE 4 MG TAB GT SCH ×3 (10:19→20:33)
[2021-07-29] MEDS ORDERED: VANCOMYCIN HCL 1,740 MG in IV FLUID PLACE HOLDER 1 EA IV ONE (11:10)
[2021-07-29] MEDS ORDERED: VANCOMYCIN INTERMITTENT/PULSE DOSING BY CLINICAL PHARMACIST PER DOSING PROTOCOL XX SCH (12:20)
[2021-07-29 12:42] VITALS: BP 126/79
[2021-07-29] MEDS: metroNIDAZOLE 500 MG in IV 1 EA IV SCH ×2 (13:54→20:34)
[2021-07-29] MEDS ORDERED: VANCOMYCIN HCL 1,000 MG, VIAL MATE ADAPTER 1 EACH in NS 250 ML IV ONE (14:00)
[2021-07-29] MEDS: NS 1,000 ML IV SCH (15:06)
[2021-07-29 16:00] VITALS: BP 118/69
[2021-07-29 20:00] VITALS: BP_SYST 115; BP_SYST 128; BP_DIAS 71; BP_DIAS 74
[2021-07-29] MEDS: CETIRIZINE (ZyrTEC) 10 MG TAB GT SCH (20:33)
[2021-07-29] MEDS ORDERED: SCOPOLAMINE 1MG TRANSDERMAL PATCH TD SCH (21:00)
[2021-07-30] VITALS (16 sets, daily range): BP systolic 101–155; BP diastolic 55–81; O2SAT 90–99
[2021-07-30] MEDS: CEFEPIME HCL 2 GM in D5W 50 ML IV SCH ×3 (01:49→17:38)
[2021-07-30] MEDS: NS 1,000 ML IV SCH (02:37)
[2021-07-30 05:18] LABS: HEMATOCRIT 35.5 % (36.0-47.0); MEAN CORPUSCULAR HEMOGLOBIN 34.6 pg (27.0-33.0); MEAN CORPUSCULAR VOLUME 111.6 fl (80.0-96.0); PLATELET COUNT, AUTOMATED 198 10^3/uL (150-450); RED BLOOD COUNT 3.18 10^6/uL (4.00-5.40); WHITE BLOOD COUNT 9.5 10^3/uL (4.0-10.0)
[2021-07-30] MEDS: metroNIDAZOLE 500 MG in IV 1 EA IV SCH ×3 (05:37→20:14)
[2021-07-30 05:49] LABS: BLOOD UREA NITROGEN 28 MG/DL (7-18); CARBON DIOXIDE LEVEL 25 MEQ/L (21-32); CHLORIDE LEVEL 119 MEQ/L (98-107); CREATININE FOR GFR 0.47 MG/DL (0.55-1.30); GLOMERULAR FILTRATION RATE > 60.0 (>58); GLUCOSE, FASTING 95 MG/DL (70-100); MAGNESIUM LEVEL 2.3 MG/DL (1.8-2.4); POTASSIUM SERUM 3.7 MEQ/L (3.5-5.1); SODIUM LEVEL 150 MEQ/L (136-145)
[2021-07-30] MEDS: LEVALBUTEROL 1.25 MG/0.5 ML CONCENTRATE NEB INH SCH ×4 (07:59→19:56)
[2021-07-30] MEDS: NYSTATIN 100,000 UNITS/GM TOPICAL PWD 15 GM TOP SCH ×2 (10:00→20:15)
[2021-07-30] MEDS: ENOXAPARIN 40MG/0.4ML SYRINGE (J1650 PER 10MG) SC SCH (10:00)
[2021-07-30] MEDS: LACTOBACILLUS ACIDOPHILUS CAP (BACID) PO SCH (10:01)
[2021-07-30] MEDS: FAMOTIDINE 40MG/5ML ORAL SUSPENSON 50ML BOTTLE GT SCH ×2 (10:01→20:15)
[2021-07-30] MEDS: CLORAZEPATE 3.75MG TAB GT SCH ×2 (10:02→20:13)
[2021-07-30] MEDS: LACOSAMIDE 50 MG TAB (VIMPAT) GT SCH ×2 (10:02→20:14)
[2021-07-30] MEDS: CYPROHEPTADINE 4 MG TAB GT SCH ×3 (10:02→20:14)
[2021-07-30] MEDS: METOCLOPRAMIDE 5 MG TAB GT SCH ×2 (10:03→20:13)
[2021-07-30 16:09] LABS: MYCOPLASMA PNEUMONIAE IgG 205 U/mL (0-99); MYCOPLASMA PNEUMONIAE IgM <770 U/mL (0-769)
[2021-07-30] MEDS: CETIRIZINE (ZyrTEC) 10 MG TAB GT SCH (20:14)
[2021-07-31] VITALS (21 sets, daily range): BP systolic 111–135; BP diastolic 54–77; O2SAT 90–96
[2021-07-31] MEDS: CEFEPIME HCL 2 GM in D5W 50 ML IV SCH ×3 (03:02→17:14)
[2021-07-31 04:49] LABS: HEMATOCRIT 35.1 % (36.0-47.0); HEMOGLOBIN 10.9 g/dl (12.0-15.5); MEAN CORPUSCULAR HEMOGLOBIN 34.6 pg (27.0-33.0); MEAN CORPUSCULAR HGB CONC 31.1 g/dl (32.0-36.5); MEAN CORPUSCULAR VOLUME 111.4 fl (80.0-96.0); PLATELET COUNT, AUTOMATED 240 10^3/uL (150-450); RED BLOOD COUNT 3.15 10^6/uL (4.00-5.40); WHITE BLOOD COUNT 9.6 10^3/uL (4.0-10.0)
[2021-07-31 05:26] LABS: BLOOD UREA NITROGEN 25 MG/DL (7-18); CALCIUM LEVEL 9.5 MG/DL (8.5-10.1); CARBON DIOXIDE LEVEL 25 MEQ/L (21-32); CHLORIDE LEVEL 118 MEQ/L (98-107); CREATININE FOR GFR 0.41 MG/DL (0.55-1.30); GLOMERULAR FILTRATION RATE > 60.0 (>58); GLUCOSE, FASTING 82 MG/DL (70-100); MAGNESIUM LEVEL 2.2 MG/DL (1.8-2.4); POTASSIUM SERUM 3.6 MEQ/L (3.5-5.1); SODIUM LEVEL 148 MEQ/L (136-145)
[2021-07-31] MEDS: metroNIDAZOLE 500 MG in IV 1 EA IV SCH ×3 (05:51→20:50)
[2021-07-31] MEDS: LEVALBUTEROL 1.25 MG/0.5 ML CONCENTRATE NEB INH SCH ×4 (07:08→20:00)
[2021-07-31] MEDS: LACTOBACILLUS ACIDOPHILUS CAP (BACID) PO SCH (07:59)
[2021-07-31] MEDS: METOCLOPRAMIDE 5 MG TAB GT SCH ×2 (07:59→20:49)
[2021-07-31] MEDS: LACOSAMIDE 50 MG TAB (VIMPAT) GT SCH ×2 (07:59→20:49)
[2021-07-31] MEDS: CYPROHEPTADINE 4 MG TAB GT SCH ×3 (07:59→20:48)
[2021-07-31] MEDS: NYSTATIN 100,000 UNITS/GM TOPICAL PWD 15 GM TOP SCH ×2 (08:00→20:50)
[2021-07-31] MEDS: ENOXAPARIN 40MG/0.4ML SYRINGE (J1650 PER 10MG) SC SCH (08:00)
[2021-07-31] MEDS: FAMOTIDINE 40MG/5ML ORAL SUSPENSON 50ML BOTTLE GT SCH ×2 (08:00→20:48)
[2021-07-31] MEDS: CLORAZEPATE 3.75MG TAB GT SCH ×2 (08:01→20:49)
[2021-07-31 13:10] LABS: CHLAMYDIA PNEUMONIAE IgM <1:10 (Neg:<1:10)
[2021-07-31 16:09] LABS: BODY FLUID CULTURE Not indicated. (.); LEGIONELLA ANTIGEN URINE Negative (Negative); ORGANISM ID Not indicated. (.); SPECIMEN SOURCE Urine (.); URINE STREP PNEUMONIAE ANTIGEN Negative (Negative)
[2021-07-31] MEDS: CETIRIZINE (ZyrTEC) 10 MG TAB GT SCH (20:49)
[2021-08-01] VITALS: BP 118/64
[2021-08-01] MEDS: CEFEPIME HCL 2 GM in D5W 50 ML IV SCH ×2 (01:40→10:10)
[2021-08-01 04:00] VITALS: BP 132/60
[2021-08-01] MEDS: metroNIDAZOLE 500 MG in IV 1 EA IV SCH (04:38)
[2021-08-01 07:07] LABS: HEMATOCRIT 34.2 % (36.0-47.0); HEMOGLOBIN 10.7 g/dl (12.0-15.5); MEAN CORPUSCULAR HEMOGLOBIN 34.9 pg (27.0-33.0); MEAN CORPUSCULAR HGB CONC 31.3 g/dl (32.0-36.5); MEAN CORPUSCULAR VOLUME 111.4 fl (80.0-96.0); PLATELET COUNT, AUTOMATED 277 10^3/uL (150-450); RED BLOOD COUNT 3.07 10^6/uL (4.00-5.40); WHITE BLOOD COUNT 10.2 10^3/uL (4.0-10.0)
[2021-08-01] MEDS: LEVALBUTEROL 1.25 MG/0.5 ML CONCENTRATE NEB INH SCH ×4 (07:23→17:36)
[2021-08-01 07:29] LABS: BLOOD UREA NITROGEN 22 MG/DL (7-18); CALCIUM LEVEL 8.9 MG/DL (8.5-10.1); CARBON DIOXIDE LEVEL 25 MEQ/L (21-32); CHLORIDE LEVEL 119 MEQ/L (98-107); CREATININE FOR GFR 0.46 MG/DL (0.55-1.30); GLOMERULAR FILTRATION RATE > 60.0 (>58); GLUCOSE, FASTING 113 MG/DL (70-100); POTASSIUM SERUM 3.7 MEQ/L (3.5-5.1); SODIUM LEVEL 148 MEQ/L (136-145)
[2021-08-01 08:00] VITALS: BP 133/67
[2021-08-01] MEDS: METOCLOPRAMIDE 5 MG TAB GT SCH ×2 (08:35→23:30)
[2021-08-01] MEDS: CYPROHEPTADINE 4 MG TAB GT SCH ×3 (08:35→23:29)
[2021-08-01] MEDS: FAMOTIDINE 40MG/5ML ORAL SUSPENSON 50ML BOTTLE GT SCH ×2 (08:36→23:29)
[2021-08-01] MEDS: LACTOBACILLUS ACIDOPHILUS CAP (BACID) PO SCH (08:36)
[2021-08-01] MEDS: LACOSAMIDE 50 MG TAB (VIMPAT) GT SCH ×2 (08:36→23:30)
[2021-08-01] MEDS: ENOXAPARIN 40MG/0.4ML SYRINGE (J1650 PER 10MG) SC SCH (08:36)
[2021-08-01] MEDS: NYSTATIN 100,000 UNITS/GM TOPICAL PWD 15 GM TOP SCH ×2 (08:37→23:30)
[2021-08-01] MEDS: CLORAZEPATE 3.75MG TAB GT SCH ×2 (08:40→23:44)
[2021-08-01] MEDS: SCOPOLAMINE 1MG TRANSDERMAL PATCH TD SCH ×2 (11:29→20:03)
[2021-08-01 12:00] VITALS: BP 134/83
[2021-08-01 15:55] VITALS: BP 123/74
[2021-08-01 20:56] VITALS: BP 120/79
[2021-08-01] MEDS: CETIRIZINE (ZyrTEC) 10 MG TAB GT SCH (23:30)
[2021-08-02 06:10] VITALS: BP 94/56
[2021-08-02 07:05] VITALS: BP 126/69
[2021-08-02] MEDS: LEVALBUTEROL 1.25 MG/0.5 ML CONCENTRATE NEB INH SCH ×2 (07:23→11:25)
[2021-08-02 07:55] LABS: HEMATOCRIT 33.3 % (36.0-47.0); HEMOGLOBIN 10.2 g/dl (12.0-15.5); MEAN CORPUSCULAR HEMOGLOBIN 34.2 pg (27.0-33.0); MEAN CORPUSCULAR HGB CONC 30.6 g/dl (32.0-36.5); MEAN CORPUSCULAR VOLUME 111.7 fl (80.0-96.0); PLATELET COUNT, AUTOMATED 288 10^3/uL (150-450); RED BLOOD COUNT 2.98 10^6/uL (4.00-5.40); WHITE BLOOD COUNT 7.9 10^3/uL (4.0-10.0)
[2021-08-02 08:00] VITALS: O2SAT 95
[2021-08-02 08:49] LABS: BLOOD UREA NITROGEN 19 MG/DL (7-18); CALCIUM LEVEL 8.7 MG/DL (8.5-10.1); CARBON DIOXIDE LEVEL 26 MEQ/L (21-32); CHLORIDE LEVEL 113 MEQ/L (98-107); CREATININE FOR GFR 0.46 MG/DL (0.55-1.30); GLOMERULAR FILTRATION RATE > 60.0 (>58); GLUCOSE, FASTING 115 MG/DL (70-100); MAGNESIUM LEVEL 1.8 MG/DL (1.8-2.4); POTASSIUM SERUM 3.9 MEQ/L (3.5-5.1); SODIUM LEVEL 146 MEQ/L (136-145)
[2021-08-02 09:44] LABS: FOLATE 18.1 NG/ML; VITAMIN B12 LEVEL > 2000 PG/ML
[2021-08-02] MEDS ORDERED: TRAN1DIS4 TD (11:01)
[2021-08-02] MEDS: LACOSAMIDE 50 MG TAB (VIMPAT) GT SCH (11:13)
[2021-08-02] MEDS: CYPROHEPTADINE 4 MG TAB GT SCH (11:13)
[2021-08-02] MEDS: LACTOBACILLUS ACIDOPHILUS CAP (BACID) PO SCH (11:14)
[2021-08-02] MEDS: METOCLOPRAMIDE 5 MG TAB GT SCH (11:14)
[2021-08-02] MEDS: FAMOTIDINE 40MG/5ML ORAL SUSPENSON 50ML BOTTLE GT SCH (11:15)
[2021-08-02] MEDS: CLORAZEPATE 3.75MG TAB GT SCH (11:15)
[2021-08-02] MEDS: ENOXAPARIN 40MG/0.4ML SYRINGE (J1650 PER 10MG) SC SCH (11:15)
[2021-08-02] MEDS: NYSTATIN 100,000 UNITS/GM TOPICAL PWD 15 GM TOP SCH (11:16)
== END 2021-08-02 14:42 | disposition home or self-care (01) | DRG 178 ==
LOC: M ED 16:29 → EDBD 16:29 → M ED INP 19:10 → ENRESERV 19:39 → M PCU 21:50 → M MSPAV 08-01 15:51
PROVIDERS: ADMIT Internal Medicine; ATTEND Internal Medicine
DX: J69.0 Pneumonitis due to inhalation of food and vomit (principal); G80.1 Spastic diplegic cerebral palsy; J45.909 Unspecified asthma, uncomplicated; I50.9 Heart failure, unspecified; R68.0 Hypothermia, not associated with low environmental temperature; Z79.899 Other long term (current) drug therapy; Z88.0 Allergy status to penicillin; Z88.8 Allergy status to other drugs, medicaments and biological substances; Z91.018 Allergy to other foods; Z88.7 Allergy status to serum and vaccine; Z93.1 Gastrostomy status

== ENCOUNTER 2021-08-29 16:13 | Inpatient (IN) | payer MEDICARE, MEDICAID ==
[~2021-08-29] VITALS: Ht 139.7 cm; Wt 70.8 kg
[~2021-08-29 16:13] MED LIST changes: +BENE6POW GT; +HEARTAB2 GT; +IPRA2IN NEB; +[UNRECOGNIZED DRUG - CODE] TOP
[2021-08-29 16:52] LABS: VENOUS O2 SATURATION 88.1 % (60.0-80.0); VENOUS PARTIAL PRESSURE CO2 66.2 mmHg (38.0-50.0); VENOUS PARTIAL PRESSURE O2 61.4 mmHg (30.0-50.0); VENOUS PH 7.328 UNITS (7.330-7.430); VENOUS STANDARD HCO3 29.7 MEQ/L
[2021-08-29 17:05] LABS: BASO % 0.2 % (0.0-1.0); EOS # 0.5 10^3/uL (0.0-0.5); EOS % 6.9 % (0.0-3.0); HEMATOCRIT 38.3 % (36.0-47.0); HEMOGLOBIN 12.1 g/dl (12.0-15.5); LYMPH # 1.4 10^3/uL (1.5-5.0); LYMPH % 21.9 % (24.0-44.0); MEAN CORPUSCULAR HEMOGLOBIN 34.5 pg (27.0-33.0); MEAN CORPUSCULAR HGB CONC 31.6 g/dl (32.0-36.5); MEAN CORPUSCULAR VOLUME 109.1 fl (80.0-96.0); MONO # 0.6 10^3/uL (0.0-0.8); MONO % 8.4 % (2.0-8.0); NEUTROPHILS # 4.1 10^3/uL (1.5-8.5); NEUTROPHILS % 62.3 % (36.0-66.0); PLATELET COUNT, AUTOMATED 222 10^3/uL (150-450); RED BLOOD COUNT 3.51 10^6/uL (4.00-5.40); WHITE BLOOD COUNT 6.5 10^3/uL (4.0-10.0)
[2021-08-29 17:32] LABS: ALBUMIN 2.9 GM/DL (3.2-5.2); ALT/SGPT 41 U/L (12-78); BILIRUBIN,DIRECT < 0.1 MG/DL (0.0-0.2); BILIRUBIN,TOTAL 0.2 MG/DL (0.2-1.0); BLOOD UREA NITROGEN 26 MG/DL (7-18); CALCIUM LEVEL 9.6 MG/DL (8.5-10.1); CARBON DIOXIDE LEVEL 33 MEQ/L (21-32); CHLORIDE LEVEL 103 MEQ/L (98-107); CREATININE FOR GFR 0.44 MG/DL (0.55-1.30); GLOMERULAR FILTRATION RATE > 60.0 (>58); GLUCOSE, FASTING 94 MG/DL (70-100); NT-PRO BNP 67 PG/ML (<125); POTASSIUM SERUM 4.4 MEQ/L (3.5-5.1); SODIUM LEVEL 140 MEQ/L (136-145); TOTAL PROTEIN 7.4 GM/DL (6.4-8.2)
[2021-08-29 18:00] LABS: RSV AMPLIFICATION NEGATIVE (NEGATIVE)
[2021-08-29] MEDS ORDERED: ATRO0.063 INH (18:51)
[2021-08-29] MEDS ORDERED: KEPP1SOL GT (18:51)
[2021-08-29] MEDS ORDERED: GUAI100S51 GT (18:51)
[2021-08-29] MEDS ORDERED: TRAN1DIS4 TOP (18:51)
[2021-08-29] MEDS ORDERED: ZADI1DRO OU (18:51)
[2021-08-29] MEDS ORDERED: JEVILIQ7 GT (18:51)
[2021-08-29] MEDS ORDERED: HOME MED LIST COMPLETE! XX SCH (18:55)
[2021-08-29] MEDS ORDERED: DOCUSATE SOD LIQ 100MG/10ML UDC GT PRN (19:05)
[2021-08-29] MEDS: CLORAZEPATE 3.75MG TAB GT SCH (21:00)
[2021-08-29] MEDS ORDERED: CEFEPIME HCL 1 GM in D5W MINI-BAG PLUS 50 ML IV ONE (21:10)
[2021-08-30] MEDS: levETIRAcetam ORAL SOLUTION 500 MG/5 ML UDC GT SCH ×3 (00:42→21:00)
[2021-08-30] MEDS: LACOSAMIDE 50 MG TAB (VIMPAT) GT SCH ×2 (00:42→10:20)
[2021-08-30] MEDS: METOCLOPRAMIDE 5 MG TAB GT SCH ×3 (00:43→21:00)
[2021-08-30] MEDS: MIRALAX *UNIT DOSE* 17GM PACKET GT SCH ×2 (00:43→21:00)
[2021-08-30] MEDS: NYSTATIN 100,000 UNITS/GM TOPICAL PWD 15 GM TOP SCH ×3 (00:43→21:00)
[2021-08-30] MEDS: FAMOTIDINE 40MG/5ML ORAL SUSPENSON 50ML BOTTLE PO SCH ×3 (00:44→21:00)
[2021-08-30] MEDS: metroNIDAZOLE 500 MG in IV 1 EA IV SCH ×3 (03:00→18:21)
[2021-08-30] MEDS ORDERED: CEFEPIME HCL 1 GM in D5W MINI-BAG PLUS 50 ML IV SCH (09:00)
[2021-08-30] MEDS ORDERED: PILL CUTTER 1 EACH XX PRN (09:45)
[2021-08-30] MEDS: D5W/0.9% SODIUM CHLORIDE 1,000 ML IV SCH (10:10)
[2021-08-30] MEDS: CLORAZEPATE 3.75MG TAB GT SCH (10:19)
[2021-08-30] MEDS: SCOPOLAMINE 1MG TRANSDERMAL PATCH TOP SCH (10:19)
[2021-08-30 10:42] LABS: BASO % 0.1 % (0.0-1.0); EOS # 0.4 10^3/uL (0.0-0.5); EOS % 4.3 % (0.0-3.0); HEMATOCRIT 35.3 % (36.0-47.0); HEMOGLOBIN 11.2 g/dl (12.0-15.5); LYMPH # 1.3 10^3/uL (1.5-5.0); LYMPH % 14.3 % (24.0-44.0); MEAN CORPUSCULAR HEMOGLOBIN 34.4 pg (27.0-33.0); MEAN CORPUSCULAR HGB CONC 31.7 g/dl (32.0-36.5); MEAN CORPUSCULAR VOLUME 108.3 fl (80.0-96.0); MONO # 0.6 10^3/uL (0.0-0.8); MONO % 6.6 % (2.0-8.0); NEUTROPHILS # 6.8 10^3/uL (1.5-8.5); NEUTROPHILS % 74.6 % (36.0-66.0); RED BLOOD COUNT 3.26 10^6/uL (4.00-5.40); WHITE BLOOD COUNT 9.1 10^3/uL (4.0-10.0)
[2021-08-30 11:03] LABS: BLOOD UREA NITROGEN 24 MG/DL (7-18); CALCIUM LEVEL 9.3 MG/DL (8.5-10.1); CARBON DIOXIDE LEVEL 32 MEQ/L (21-32); CHLORIDE LEVEL 109 MEQ/L (98-107); GLOMERULAR FILTRATION RATE > 60.0 (>58); GLUCOSE, FASTING 95 MG/DL (70-100); POTASSIUM SERUM 4.4 MEQ/L (3.5-5.1); SODIUM LEVEL 144 MEQ/L (136-145)
[2021-08-30] MEDS ORDERED: CEFEPIME HCL 2 GM in D5W MINI-BAG PLUS 50 ML IV SCH (12:00)
[2021-08-30] MEDS: CEFEPIME HCL 1 GM in D5W MINI-BAG PLUS 50 ML IV SCH ×2 (12:59→13:43)
[2021-08-30] MEDS: CEFEPIME HCL 2 GM in D5W MINI-BAG PLUS 50 ML IV SCH (19:49)
[2021-08-31] VITALS (9 sets, daily range): BP systolic 128–140; BP diastolic 67–86; O2SAT 93–98
[2021-08-31] MEDS: D5W/0.9% SODIUM CHLORIDE 1,000 ML IV SCH ×2 (00:46→03:41)
[2021-08-31] MEDS: metroNIDAZOLE 500 MG in IV 1 EA IV SCH ×3 (01:01→18:14)
[2021-08-31] MEDS: LACOSAMIDE 50 MG TAB (VIMPAT) GT SCH ×3 (01:02→21:01)
[2021-08-31] MEDS: CLORAZEPATE 3.75MG TAB GT SCH ×3 (01:05→21:01)
[2021-08-31] MEDS: CEFEPIME HCL 2 GM in D5W MINI-BAG PLUS 50 ML IV SCH ×3 (03:34→21:00)
[2021-08-31 05:01] LABS: BASO % 0.1 % (0.0-1.0); EOS # 0.3 10^3/uL (0.0-0.5); HEMATOCRIT 37.3 % (36.0-47.0); HEMOGLOBIN 11.7 g/dl (12.0-15.5); LYMPH # 2.2 10^3/uL (1.5-5.0); LYMPH % 27.1 % (24.0-44.0); MEAN CORPUSCULAR HEMOGLOBIN 34.4 pg (27.0-33.0); MEAN CORPUSCULAR HGB CONC 31.4 g/dl (32.0-36.5); MEAN CORPUSCULAR VOLUME 109.7 fl (80.0-96.0); MONO # 1.1 10^3/uL (0.0-0.8); MONO % 13.4 % (2.0-8.0); NEUTROPHILS # 4.5 10^3/uL (1.5-8.5); NEUTROPHILS % 55.2 % (36.0-66.0); PLATELET COUNT, AUTOMATED 207 10^3/uL (150-450); WHITE BLOOD COUNT 8.1 10^3/uL (4.0-10.0)
[2021-08-31 05:32] LABS: BLOOD UREA NITROGEN 19 MG/DL (7-18); CALCIUM LEVEL 9.1 MG/DL (8.5-10.1); CARBON DIOXIDE LEVEL 26 MEQ/L (21-32); CHLORIDE LEVEL 110 MEQ/L (98-107); CREATININE FOR GFR 0.62 MG/DL (0.55-1.30); GLOMERULAR FILTRATION RATE > 60.0 (>58); GLUCOSE, FASTING 98 MG/DL (70-100); POTASSIUM SERUM 3.8 MEQ/L (3.5-5.1); SODIUM LEVEL 140 MEQ/L (136-145)
[2021-08-31] MEDS: levETIRAcetam ORAL SOLUTION 500 MG/5 ML UDC GT SCH ×2 (10:54→21:01)
[2021-08-31] MEDS: METOCLOPRAMIDE 5 MG TAB GT SCH ×2 (10:55→21:05)
[2021-08-31] MEDS: FAMOTIDINE 40MG/5ML ORAL SUSPENSON 50ML BOTTLE PO SCH ×2 (10:55→21:01)
[2021-08-31] MEDS: NYSTATIN 100,000 UNITS/GM TOPICAL PWD 15 GM TOP SCH ×2 (10:56→21:02)
[2021-08-31] MEDS: MIRALAX *UNIT DOSE* 17GM PACKET GT SCH (21:01)
[2021-08-31] MEDS: SCOPOLAMINE 1MG TRANSDERMAL PATCH TOP SCH (23:52)
[2021-09-01] VITALS (12 sets, daily range): BP systolic 109–138; BP diastolic 58–78; O2SAT 89–94
[2021-09-01] MEDS: metroNIDAZOLE 500 MG in IV 1 EA IV SCH ×3 (02:54→18:28)
[2021-09-01] MEDS: CEFEPIME HCL 2 GM in D5W MINI-BAG PLUS 50 ML IV SCH ×3 (04:11→20:36)
[2021-09-01 05:50] LABS: BASO % 0.2 % (0.0-1.0); EOS # 0.2 10^3/uL (0.0-0.5); EOS % 4.9 % (0.0-3.0); HEMATOCRIT 35.1 % (36.0-47.0); LYMPH # 1.8 10^3/uL (1.5-5.0); LYMPH % 36.6 % (24.0-44.0); MEAN CORPUSCULAR HEMOGLOBIN 34.5 pg (27.0-33.0); MEAN CORPUSCULAR HGB CONC 31.3 g/dl (32.0-36.5); MONO # 0.9 10^3/uL (0.0-0.8); MONO % 19.1 % (2.0-8.0); NEUTROPHILS # 1.9 10^3/uL (1.5-8.5); NEUTROPHILS % 38.8 % (36.0-66.0); PLATELET COUNT, AUTOMATED 178 10^3/uL (150-450); RED BLOOD COUNT 3.19 10^6/uL (4.00-5.40); WHITE BLOOD COUNT 4.9 10^3/uL (4.0-10.0)
[2021-09-01 06:00] LABS: BLOOD UREA NITROGEN 24 MG/DL (7-18); CALCIUM LEVEL 8.6 MG/DL (8.5-10.1); CARBON DIOXIDE LEVEL 26 MEQ/L (21-32); CHLORIDE LEVEL 116 MEQ/L (98-107); CREATININE FOR GFR 0.47 MG/DL (0.55-1.30); GLOMERULAR FILTRATION RATE > 60.0 (>58); GLUCOSE, FASTING 87 MG/DL (70-100); SODIUM LEVEL 144 MEQ/L (136-145)
[2021-09-01] MEDS: NYSTATIN 100,000 UNITS/GM TOPICAL PWD 15 GM TOP SCH ×2 (11:16→20:37)
[2021-09-01] MEDS: FAMOTIDINE 40MG/5ML ORAL SUSPENSON 50ML BOTTLE PO SCH ×2 (11:55→20:37)
[2021-09-01] MEDS: levETIRAcetam ORAL SOLUTION 500 MG/5 ML UDC GT SCH ×2 (11:55→20:36)
[2021-09-01] MEDS: LACOSAMIDE 50 MG TAB (VIMPAT) GT SCH ×2 (11:55→20:37)
[2021-09-01] MEDS: METOCLOPRAMIDE 5 MG TAB GT SCH ×2 (11:55→20:38)
[2021-09-01] MEDS: CLORAZEPATE 3.75MG TAB GT SCH ×2 (11:55→20:37)
[2021-09-01] MEDS ORDERED: ALBUTEROL SULFATE 2.5 MG/0.5 ML INH NEB SOLN NEB ONE (13:05)
[2021-09-01] MEDS ORDERED: FUROSEMIDE 40MG/4ML VIAL (J1940) IV ONE (13:05)
[2021-09-01] MEDS: MIRALAX *UNIT DOSE* 17GM PACKET GT SCH (20:36)
[2021-09-02] VITALS (15 sets, daily range): BP systolic 100–124; BP diastolic 62–94; O2SAT 87–97
[2021-09-02] MEDS: metroNIDAZOLE 500 MG in IV 1 EA IV SCH ×3 (01:13→17:35)
[2021-09-02] MEDS: CEFEPIME HCL 2 GM in D5W MINI-BAG PLUS 50 ML IV SCH ×3 (04:15→20:34)
[2021-09-02 05:42] LABS: BASO % 0.1 % (0.0-1.0); EOS # 0.2 10^3/uL (0.0-0.5); EOS % 2.3 % (0.0-3.0); HEMATOCRIT 38.8 % (36.0-47.0); HEMOGLOBIN 12.3 g/dl (12.0-15.5); LYMPH # 2.1 10^3/uL (1.5-5.0); LYMPH % 24.7 % (24.0-44.0); MEAN CORPUSCULAR HEMOGLOBIN 34.5 pg (27.0-33.0); MEAN CORPUSCULAR HGB CONC 31.7 g/dl (32.0-36.5); MEAN CORPUSCULAR VOLUME 108.7 fl (80.0-96.0); MONO % 12.2 % (2.0-8.0); NEUTROPHILS % 60.2 % (36.0-66.0); PLATELET COUNT, AUTOMATED 187 10^3/uL (150-450); RED BLOOD COUNT 3.57 10^6/uL (4.00-5.40); WHITE BLOOD COUNT 8.3 10^3/uL (4.0-10.0)
[2021-09-02 06:17] LABS: BLOOD UREA NITROGEN 29 MG/DL (7-18); CALCIUM LEVEL 9.2 MG/DL (8.5-10.1); CARBON DIOXIDE LEVEL 30 MEQ/L (21-32); CHLORIDE LEVEL 112 MEQ/L (98-107); CREATININE FOR GFR 0.66 MG/DL (0.55-1.30); GLOMERULAR FILTRATION RATE > 60.0 (>58); GLUCOSE, FASTING 125 MG/DL (70-100); POTASSIUM SERUM 3.7 MEQ/L (3.5-5.1); SODIUM LEVEL 146 MEQ/L (136-145)
[2021-09-02] MEDS: NYSTATIN 100,000 UNITS/GM TOPICAL PWD 15 GM TOP SCH ×2 (08:53→21:47)
[2021-09-02] MEDS: FAMOTIDINE 40MG/5ML ORAL SUSPENSON 50ML BOTTLE PO SCH ×2 (08:54→21:47)
[2021-09-02] MEDS: levETIRAcetam ORAL SOLUTION 500 MG/5 ML UDC GT SCH ×2 (08:55→21:47)
[2021-09-02] MEDS: LACOSAMIDE 50 MG TAB (VIMPAT) GT SCH ×2 (08:55→21:47)
[2021-09-02] MEDS: CLORAZEPATE 3.75MG TAB GT SCH ×2 (08:55→21:47)
[2021-09-02] MEDS: METOCLOPRAMIDE 5 MG TAB GT SCH ×2 (09:06→21:47)
[2021-09-02] MEDS: SCOPOLAMINE 1MG TRANSDERMAL PATCH TOP SCH (09:07)
[2021-09-02] MEDS: MIRALAX *UNIT DOSE* 17GM PACKET GT SCH (21:48)
[2021-09-03] VITALS (16 sets, daily range): BP systolic 95–122; BP diastolic 50–87; O2SAT 94–97
[2021-09-03] MEDS: metroNIDAZOLE 500 MG in IV 1 EA IV SCH ×3 (02:17→18:23)
[2021-09-03] MEDS: CEFEPIME HCL 2 GM in D5W MINI-BAG PLUS 50 ML IV SCH ×3 (04:57→21:04)
[2021-09-03] MEDS: SCOPOLAMINE 1MG TRANSDERMAL PATCH TOP SCH (05:38)
[2021-09-03 05:53] LABS: BLOOD UREA NITROGEN 29 MG/DL (7-18); CARBON DIOXIDE LEVEL 29 MEQ/L (21-32); CHLORIDE LEVEL 114 MEQ/L (98-107); CREATININE FOR GFR 0.54 MG/DL (0.55-1.30); GLOMERULAR FILTRATION RATE > 60.0 (>58); GLUCOSE, FASTING 121 MG/DL (70-100); POTASSIUM SERUM 3.8 MEQ/L (3.5-5.1); SODIUM LEVEL 146 MEQ/L (136-145)
[2021-09-03 07:23] LABS: BASO % 0.3 % (0.0-1.0); EOS # 0.4 10^3/uL (0.0-0.5); EOS % 5.7 % (0.0-3.0); HEMATOCRIT 36.7 % (36.0-47.0); HEMOGLOBIN 11.6 g/dl (12.0-15.5); LYMPH # 1.6 10^3/uL (1.5-5.0); LYMPH % 22.6 % (24.0-44.0); MEAN CORPUSCULAR HEMOGLOBIN 34.3 pg (27.0-33.0); MEAN CORPUSCULAR HGB CONC 31.6 g/dl (32.0-36.5); MEAN CORPUSCULAR VOLUME 108.6 fl (80.0-96.0); MONO # 1.1 10^3/uL (0.0-0.8); MONO % 16.3 % (2.0-8.0); NEUTROPHILS # 3.8 10^3/uL (1.5-8.5); NEUTROPHILS % 54.7 % (36.0-66.0); PLATELET COUNT, AUTOMATED 186 10^3/uL (150-450); RED BLOOD COUNT 3.38 10^6/uL (4.00-5.40)
[2021-09-03] MEDS: CLORAZEPATE 3.75MG TAB GT SCH ×2 (10:07→21:57)
[2021-09-03] MEDS: levETIRAcetam ORAL SOLUTION 500 MG/5 ML UDC GT SCH ×2 (10:07→21:57)
[2021-09-03] MEDS: HYOSCYAMINE SULFATE 0.125 MG SUBL TABLET SL SCH ×3 (10:07→21:57)
[2021-09-03] MEDS: LACOSAMIDE 50 MG TAB (VIMPAT) GT SCH ×2 (10:07→21:57)
[2021-09-03] MEDS: FAMOTIDINE 40MG/5ML ORAL SUSPENSON 50ML BOTTLE PO SCH ×2 (10:08→21:57)
[2021-09-03] MEDS: NYSTATIN 100,000 UNITS/GM TOPICAL PWD 15 GM TOP SCH ×2 (10:08→21:58)
[2021-09-03] MEDS: METOCLOPRAMIDE 5 MG TAB GT SCH ×2 (10:08→21:57)
[2021-09-03] MEDS: FUROSEMIDE 20MG/2ML VIAL (J1940) IV SCH ×3 (10:09→21:04)
[2021-09-03] MEDS: MIRALAX *UNIT DOSE* 17GM PACKET GT SCH (21:58)
[2021-09-04] VITALS (14 sets, daily range): BP systolic 111–114; BP diastolic 61–75; O2SAT 90–96
[2021-09-04] MEDS: FUROSEMIDE 20MG/2ML VIAL (J1940) IV SCH ×4 (02:02→19:51)
[2021-09-04] MEDS: metroNIDAZOLE 500 MG in IV 1 EA IV SCH ×3 (02:02→18:12)
[2021-09-04] MEDS: CEFEPIME HCL 2 GM in D5W MINI-BAG PLUS 50 ML IV SCH ×3 (03:58→19:50)
[2021-09-04] MEDS: HYOSCYAMINE SULFATE 0.125 MG SUBL TABLET SL SCH ×3 (06:31→21:08)
[2021-09-04 07:33] LABS: RED BLOOD COUNT 3.55 10^6/uL (4.00-5.40); WHITE BLOOD COUNT 8.3 10^3/uL (4.0-10.0)
[2021-09-04 07:34] LABS: BASO % 0.2 % (0.0-1.0); EOS # 0.5 10^3/uL (0.0-0.5); EOS % 5.6 % (0.0-3.0); HEMATOCRIT 38.4 % (36.0-47.0); HEMOGLOBIN 12.1 g/dl (12.0-15.5); LYMPH # 2.2 10^3/uL (1.5-5.0); LYMPH % 26.5 % (24.0-44.0); MEAN CORPUSCULAR HEMOGLOBIN 34.1 pg (27.0-33.0); MEAN CORPUSCULAR HGB CONC 31.5 g/dl (32.0-36.5); MEAN CORPUSCULAR VOLUME 108.2 fl (80.0-96.0); MONO # 1.3 10^3/uL (0.0-0.8); MONO % 15.9 % (2.0-8.0); NEUTROPHILS # 4.3 10^3/uL (1.5-8.5); NEUTROPHILS % 51.6 % (36.0-66.0); PLATELET COUNT, AUTOMATED 212 10^3/uL (150-450)
[2021-09-04 07:57] LABS: BLOOD UREA NITROGEN 30 MG/DL (7-18); CALCIUM LEVEL 9.7 MG/DL (8.5-10.1); CARBON DIOXIDE LEVEL 32 MEQ/L (21-32); CHLORIDE LEVEL 105 MEQ/L (98-107); CREATININE FOR GFR 0.88 MG/DL (0.55-1.30); GLOMERULAR FILTRATION RATE > 60.0 (>58); GLUCOSE, FASTING 170 MG/DL (70-100); POTASSIUM SERUM 3.3 MEQ/L (3.5-5.1); SODIUM LEVEL 142 MEQ/L (136-145)
[2021-09-04] MEDS ORDERED: POTASSIUM CHLORIDE 10% LIQ 20 MEQ/15 ML UDC PO ONE (09:30)
[2021-09-04] MEDS: CLORAZEPATE 3.75MG TAB GT SCH ×2 (10:03→20:30)
[2021-09-04] MEDS: LACOSAMIDE 50 MG TAB (VIMPAT) GT SCH ×2 (10:03→20:30)
[2021-09-04] MEDS: levETIRAcetam ORAL SOLUTION 500 MG/5 ML UDC GT SCH ×2 (10:03→20:29)
[2021-09-04] MEDS: FAMOTIDINE 40MG/5ML ORAL SUSPENSON 50ML BOTTLE PO SCH ×2 (10:04→20:29)
[2021-09-04] MEDS: NYSTATIN 100,000 UNITS/GM TOPICAL PWD 15 GM TOP SCH ×2 (10:05→20:30)
[2021-09-04] MEDS: METOCLOPRAMIDE 5 MG TAB GT SCH ×2 (10:09→20:29)
[2021-09-04] MEDS: MIRALAX *UNIT DOSE* 17GM PACKET GT SCH (20:29)
[2021-09-05] VITALS (16 sets, daily range): BP systolic 97–118; BP diastolic 58–76; O2SAT 89–96
[2021-09-05] MEDS: metroNIDAZOLE 500 MG in IV 1 EA IV SCH ×3 (02:38→17:45)
[2021-09-05] MEDS: FUROSEMIDE 20MG/2ML VIAL (J1940) IV SCH ×4 (02:39→20:32)
[2021-09-05] MEDS: CEFEPIME HCL 2 GM in D5W MINI-BAG PLUS 50 ML IV SCH ×3 (04:01→20:32)
[2021-09-05] MEDS: HYOSCYAMINE SULFATE 0.125 MG SUBL TABLET SL SCH ×3 (06:01→20:32)
[2021-09-05 06:32] LABS: BASO % 0.3 % (0.0-1.0); EOS # 0.5 10^3/uL (0.0-0.5); EOS % 5.7 % (0.0-3.0); HEMATOCRIT 40.2 % (36.0-47.0); HEMOGLOBIN 12.7 g/dl (12.0-15.5); LYMPH % 34.7 % (24.0-44.0); MEAN CORPUSCULAR HEMOGLOBIN 34.1 pg (27.0-33.0); MEAN CORPUSCULAR HGB CONC 31.6 g/dl (32.0-36.5); MEAN CORPUSCULAR VOLUME 108.1 fl (80.0-96.0); MONO % 17.6 % (2.0-8.0); NEUTROPHILS # 3.6 10^3/uL (1.5-8.5); NEUTROPHILS % 41.4 % (36.0-66.0); PLATELET COUNT, AUTOMATED 198 10^3/uL (150-450); RED BLOOD COUNT 3.72 10^6/uL (4.00-5.40); WHITE BLOOD COUNT 8.7 10^3/uL (4.0-10.0)
[2021-09-05 06:59] LABS: BLOOD UREA NITROGEN 36 MG/DL (7-18); CALCIUM LEVEL 9.3 MG/DL (8.5-10.1); CARBON DIOXIDE LEVEL 35 MEQ/L (21-32); CHLORIDE LEVEL 100 MEQ/L (98-107); GLOMERULAR FILTRATION RATE > 60.0 (>58); GLUCOSE, FASTING 138 MG/DL (70-100); SODIUM LEVEL 139 MEQ/L (136-145)
[2021-09-05 07:44] LABS: MONO # 1.5 10^3/uL (0.0-0.8)
[2021-09-05] MEDS: FAMOTIDINE 40MG/5ML ORAL SUSPENSON 50ML BOTTLE PO SCH ×2 (09:26→20:31)
[2021-09-05] MEDS: levETIRAcetam ORAL SOLUTION 500 MG/5 ML UDC GT SCH ×2 (09:26→20:31)
[2021-09-05] MEDS: CLORAZEPATE 3.75MG TAB GT SCH ×2 (09:26→20:31)
[2021-09-05] MEDS: NYSTATIN 100,000 UNITS/GM TOPICAL PWD 15 GM TOP SCH ×2 (09:26→20:32)
[2021-09-05] MEDS: METOCLOPRAMIDE 5 MG TAB GT SCH ×2 (09:27→20:34)
[2021-09-05] MEDS: LACOSAMIDE 50 MG TAB (VIMPAT) GT SCH ×2 (09:27→20:31)
[2021-09-05] MEDS: MIRALAX *UNIT DOSE* 17GM PACKET GT SCH (20:31)
[2021-09-06] VITALS (9 sets, daily range): BP systolic 94–128; BP diastolic 62–77; O2SAT 93–94
[2021-09-06] MEDS: FUROSEMIDE 20MG/2ML VIAL (J1940) IV SCH ×2 (03:23→09:05)
[2021-09-06] MEDS: metroNIDAZOLE 500 MG in IV 1 EA IV SCH ×2 (03:23→09:01)
[2021-09-06] MEDS: HYOSCYAMINE SULFATE 0.125 MG SUBL TABLET SL SCH (05:31)
[2021-09-06] MEDS: CEFEPIME HCL 2 GM in D5W MINI-BAG PLUS 50 ML IV SCH ×2 (05:31→12:00)
[2021-09-06 06:00] LABS: HEMATOCRIT 39.9 % (36.0-47.0); HEMOGLOBIN 12.7 g/dl (12.0-15.5); MEAN CORPUSCULAR HEMOGLOBIN 34.5 pg (27.0-33.0); MEAN CORPUSCULAR HGB CONC 31.8 g/dl (32.0-36.5); MEAN CORPUSCULAR VOLUME 108.4 fl (80.0-96.0); PLATELET COUNT, AUTOMATED 180 10^3/uL (150-450); RED BLOOD COUNT 3.68 10^6/uL (4.00-5.40); WHITE BLOOD COUNT 8.5 10^3/uL (4.0-10.0)
[2021-09-06 06:20] LABS: BLOOD UREA NITROGEN 46 MG/DL (7-18); CALCIUM LEVEL 9.9 MG/DL (8.5-10.1); CARBON DIOXIDE LEVEL 34 MEQ/L (21-32); CHLORIDE LEVEL 98 MEQ/L (98-107); CREATININE FOR GFR 0.92 MG/DL (0.55-1.30); GLOMERULAR FILTRATION RATE > 60.0 (>58); GLUCOSE, FASTING 154 MG/DL (70-100); POTASSIUM SERUM 3.3 MEQ/L (3.5-5.1); SODIUM LEVEL 137 MEQ/L (136-145)
[2021-09-06] MEDS ORDERED: POTASSIUM CHLORIDE 10% LIQ 20 MEQ/15 ML UDC PO ONE (07:00)
[2021-09-06] MEDS ORDERED: SCOPOLAMINE 1MG TRANSDERMAL PATCH TOP SCH (09:00)
[2021-09-06] MEDS: METOCLOPRAMIDE 5 MG TAB GT SCH (09:02)
[2021-09-06] MEDS: LACOSAMIDE 50 MG TAB (VIMPAT) GT SCH (09:04)
[2021-09-06] MEDS: NYSTATIN 100,000 UNITS/GM TOPICAL PWD 15 GM TOP SCH (09:04)
[2021-09-06] MEDS: FAMOTIDINE 40MG/5ML ORAL SUSPENSON 50ML BOTTLE PO SCH (09:04)
[2021-09-06] MEDS: CLORAZEPATE 3.75MG TAB GT SCH (09:04)
[2021-09-06] MEDS: levETIRAcetam ORAL SOLUTION 500 MG/5 ML UDC GT SCH (09:04)
[2021-09-06] MEDS ORDERED: HYOS125TA SL (10:49)
[2021-09-06] MEDS ORDERED: HYOS1TAB GT (10:52)
== END 2021-09-06 13:34 | DRG 177 ==
LOC: M ED 16:13 → EEVIPCON 18:33 → M ED INP 18:33 → ENRESERV 08-30 21:53 → M PCU 08-31 00:39
PROVIDERS: ADMIT Internal Medicine Nephrology; ATTEND Internal Medicine Nephrology
DX: J69.0 Pneumonitis due to inhalation of food and vomit (principal); G80.0 Spastic quadriplegic cerebral palsy; J96.01 Acute respiratory failure with hypoxia; G93.1 Anoxic brain damage, not elsewhere classified; F72 Severe intellectual disabilities; J90 Pleural effusion, not elsewhere classified; J98.11 Atelectasis; J45.909 Unspecified asthma, uncomplicated; G40.909 Epilepsy, unspecified, not intractable, without status epilepticus; K59.00 Constipation, unspecified; M85.88 Other specified disorders of bone density and structure, other site; Z93.1 Gastrostomy status; Z20.822 Contact with and (suspected) exposure to COVID-19; Z79.899 Other long term (current) drug therapy; Z88.0 Allergy status to penicillin; Z88.1 Allergy status to other antibiotic agents; Z88.8 Allergy status to other drugs, medicaments and biological substances; Z88.7 Allergy status to serum and vaccine; Z91.018 Allergy to other foods; R68.0 Hypothermia, not associated with low environmental temperature; Z66 Do not resuscitate

== ENCOUNTER → 2021-10-29 | Outpatient (POV) | payer MEDICARE, MEDICAID ==
[~2021-10-29] VITALS: Ht 144.8 cm; Wt 67.7 kg
[~2021-10-29] MED LIST changes: +GUAI100S51 GT; +HYOS125TA SL; +HYOS1TAB GT
[2021-10-29 10:50] VITALS: BP 124/68
== END ==
LOC: M IRPOV 10:41
PROVIDERS: ATTEND Radiology Diagnostic Radiology
DX: Z43.1 Encounter for attention to gastrostomy (principal); Z88.0 Allergy status to penicillin; Z88.1 Allergy status to other antibiotic agents; Z88.7 Allergy status to serum and vaccine; Z88.8 Allergy status to other drugs, medicaments and biological substances; Z91.018 Allergy to other foods

== ENCOUNTER 2021-11-08 19:28 | Emergency (ER) | payer MEDICARE, MEDICAID ==
[2021-11-08 20:43] LABS: BASO % 0.4 % (0.0-1.0); EOS # 0.3 10^3/uL (0.0-0.5); EOS % 7.2 % (0.0-3.0); HEMATOCRIT 36.8 % (36.0-47.0); HEMOGLOBIN 11.8 g/dl (12.0-15.5); LYMPH # 1.3 10^3/uL (1.5-5.0); LYMPH % 27.7 % (24.0-44.0); MEAN CORPUSCULAR HEMOGLOBIN 34.3 pg (27.0-33.0); MEAN CORPUSCULAR HGB CONC 32.1 g/dl (32.0-36.5); MONO # 0.5 10^3/uL (0.0-0.8); MONO % 10.2 % (2.0-8.0); NEUTROPHILS # 2.5 10^3/uL (1.5-8.5); NEUTROPHILS % 54.3 % (36.0-66.0); PLATELET COUNT, AUTOMATED 198 10^3/uL (150-450); RED BLOOD COUNT 3.44 10^6/uL (4.00-5.40); WHITE BLOOD COUNT 4.6 10^3/uL (4.0-10.0)
[2021-11-08 21:06] LABS: ALBUMIN 2.9 GM/DL (3.2-5.2); ALT/SGPT 53 U/L (12-78); BILIRUBIN,TOTAL 0.3 MG/DL (0.2-1.0); BLOOD UREA NITROGEN 25 MG/DL (7-18); CARBON DIOXIDE LEVEL 29 MEQ/L (21-32); CHLORIDE LEVEL 107 MEQ/L (98-107); CREATININE FOR GFR 0.46 MG/DL (0.55-1.30); GLOMERULAR FILTRATION RATE > 60.0 (>58); GLUCOSE, FASTING 120 MG/DL (70-100); POTASSIUM SERUM 4.1 MEQ/L (3.5-5.1); SODIUM LEVEL 143 MEQ/L (136-145); TOTAL PROTEIN 7.8 GM/DL (6.4-8.2)
[2021-11-08] MEDS ORDERED: LEVO750T13 GT (22:41)
[2021-11-08] MEDS ORDERED: LevoFLOXacin 750 MG TABLET GT ONE (22:45)
[2021-11-08 23:19] VITALS: BP 144/87
== END 2021-11-09 00:04 | disposition home or self-care (01) ==
LOC: M ED 19:28
DX: J18.9 Pneumonia, unspecified organism (principal); J98.11 Atelectasis; I51.7 Cardiomegaly; I50.9 Heart failure, unspecified; G80.0 Spastic quadriplegic cerebral palsy; G40.909 Epilepsy, unspecified, not intractable, without status epilepticus; Z93.1 Gastrostomy status; S42.201D Unspecified fracture of upper end of right humerus, subsequent encounter for fracture with routine healing; X58.XXXD Exposure to other specified factors, subsequent encounter; Z88.1 Allergy status to other antibiotic agents; Z88.8 Allergy status to other drugs, medicaments and biological substances; Z88.7 Allergy status to serum and vaccine; Z79.899 Other long term (current) drug therapy

== ENCOUNTER 2021-11-12 13:29 | Emergency (ER) | payer MEDICARE, MEDICAID ==
[~2021-11-12] VITALS: Ht 144.8 cm; Wt 63.6 kg
[~2021-11-12 13:29] MED LIST changes: +LEVO750T13 GT
[2021-11-12 14:29] LABS: BASO % 0.4 % (0.0-1.0); EOS # 0.3 10^3/uL (0.0-0.5); EOS % 4.8 % (0.0-3.0); HEMATOCRIT 37.4 % (36.0-47.0); HEMOGLOBIN 11.9 g/dl (12.0-15.5); LYMPH # 2.4 10^3/uL (1.5-5.0); LYMPH % 34.9 % (24.0-44.0); MEAN CORPUSCULAR HEMOGLOBIN 33.7 pg (27.0-33.0); MEAN CORPUSCULAR HGB CONC 31.8 g/dl (32.0-36.5); MEAN CORPUSCULAR VOLUME 105.9 fl (80.0-96.0); MONO # 0.7 10^3/uL (0.0-0.8); MONO % 10.6 % (2.0-8.0); NEUTROPHILS # 3.4 10^3/uL (1.5-8.5); NEUTROPHILS % 48.9 % (36.0-66.0); PLATELET COUNT, AUTOMATED 199 10^3/uL (150-450); RED BLOOD COUNT 3.53 10^6/uL (4.00-5.40); WHITE BLOOD COUNT 6.9 10^3/uL (4.0-10.0)
[2021-11-12 14:54] LABS: BLOOD UREA NITROGEN 23 MG/DL (7-18); C REACTIVE PROTEIN QUANTITATIV 2.56 MG/DL (0.00-0.30); CALCIUM LEVEL 9.9 MG/DL (8.5-10.1); CARBON DIOXIDE LEVEL 27 MEQ/L (21-32); CHLORIDE LEVEL 109 MEQ/L (98-107); CREATININE FOR GFR 0.68 MG/DL (0.55-1.30); GLOMERULAR FILTRATION RATE > 60.0 (>58); GLUCOSE, FASTING 128 MG/DL (70-100); SODIUM LEVEL 142 MEQ/L (136-145)
[2021-11-12 17:00] VITALS: BP 111/76
== END 2021-11-12 17:56 | disposition home or self-care (01) ==
LOC: M ED 13:29 → EDBD 13:29 → M ED 17:56
DX: J45.909 Unspecified asthma, uncomplicated (principal); R06.02 Shortness of breath; Z88.7 Allergy status to serum and vaccine; Z88.0 Allergy status to penicillin; Z88.1 Allergy status to other antibiotic agents; Z79.899 Other long term (current) drug therapy

== ENCOUNTER → 2021-12-04 | Outpatient (CLI) | payer MEDICARE, MEDICAID ==
[~2021-12-04] MED LIST changes: +ISOVUE-300 61% 50ML VIAL As Ordered ONE; +LIDOCAINE 1% MDV 20ML VIAL As Ordered ONE
[2021-12-04 15:05] VITALS: BP 138/94
== END ==
LOC: M IRPRO 12:09
PROVIDERS: ATTEND Radiology Diagnostic Radiology
DX: G80.9 Cerebral palsy, unspecified (principal); Z43.4 Encounter for attention to other artificial openings of digestive tract
CPT/HCPCS: 43762; C1729; C1769; Q9967

== ENCOUNTER 2022-01-02 11:30 | Inpatient (IN) | payer MEDICARE, MEDICAID ==
[~2022-01-02] VITALS: Ht 139.7 cm; Wt 69.0 kg
[~2022-01-02 11:30] MED LIST changes: -ISOVUE-300 61% 50ML VIAL As Ordered ONE; -LIDOCAINE 1% MDV 20ML VIAL As Ordered ONE
[2022-01-02] MEDS: IPRATROPIUM 0.5MG/ALBUTEROL 2.5MG INH SOL UD 3ML (DUONEB) NEB SCH ×2 (11:52→11:53)
[2022-01-02] MEDS ORDERED: ACETAMINOPHEN 325 MG/10.15 ML UDC PO ONE (11:55)
[2022-01-02] MEDS ORDERED: methylPREDNISolone 125MG 2ML VIAL IV ONE (11:55)
[2022-01-02] MEDS ORDERED: LevoFLOXacin IV 750 MG in IV 1 EA IV ONE (11:55)
[2022-01-02 12:16] LABS: HEMATOCRIT 36.8 % (36.0-47.0); HEMOGLOBIN 11.9 g/dl (12.0-15.5); MEAN CORPUSCULAR HEMOGLOBIN 33.7 pg (27.0-33.0); MEAN CORPUSCULAR HGB CONC 32.3 g/dl (32.0-36.5); MEAN CORPUSCULAR VOLUME 104.2 fl (80.0-96.0); PLATELET COUNT, AUTOMATED 222 10^3/uL (150-450); RED BLOOD COUNT 3.53 10^6/uL (4.00-5.40); WHITE BLOOD COUNT 11.9 10^3/uL (4.0-10.0)
[2022-01-02 12:54] LABS: ATYPICAL LYMPH 4 % (0-5); BASOPHILS 1 % (0-1); EOSINOPHILS 1 % (0-3); LYMPHOCYTES 17 % (16-44); MONOCYTES 13 % (0-5); NEUTROPHILS 45 % (28-66)
[2022-01-02 12:56] LABS: MICROCYTOSIS 1+; PLATELET ESTIMATE NORMAL (NORMAL)
[2022-01-02 12:57] LABS: STOMATOCYTES 1+
[2022-01-02 13:00] LABS: ALT/SGPT 119 U/L (12-78); BILIRUBIN,DIRECT 0.6 MG/DL (0.0-0.2); BILIRUBIN,TOTAL 1.2 MG/DL (0.2-1.0); BLOOD UREA NITROGEN 23 MG/DL (7-18); CALCIUM LEVEL 9.7 MG/DL (8.5-10.1); CARBON DIOXIDE LEVEL 25 MEQ/L (21-32); CHLORIDE LEVEL 105 MEQ/L (98-107); CREATININE FOR GFR 0.58 MG/DL (0.55-1.30); GLOMERULAR FILTRATION RATE > 60.0 (>58); GLUCOSE, FASTING 111 MG/DL (70-100); POTASSIUM SERUM 4.2 MEQ/L (3.5-5.1); SODIUM LEVEL 139 MEQ/L (136-145); TOTAL PROTEIN 7.9 GM/DL (6.4-8.2)
[2022-01-02] MEDS ORDERED: UNRESOLVED CLARIFICATION ENTRY XX SCH (14:44)
[2022-01-02] MEDS: METOCLOPRAMIDE 5 MG TAB GT SCH ×2 (16:00→20:38)
[2022-01-02] MEDS ORDERED: JEVILIQ12 PO (16:47)
[2022-01-02 17:00] VITALS: BP 106/52
[2022-01-02] MEDS ORDERED: MIRA3350 PO (17:13)
[2022-01-02] MEDS ORDERED: LEVA1.2519 INH (17:13)
[2022-01-02] MEDS ORDERED: BENE1POW4 PO (17:13)
[2022-01-02] MEDS ORDERED: IPRA2IN NEB ×2 (17:13)
[2022-01-02 17:15] VITALS: O2SAT 95
[2022-01-02] MEDS ORDERED: HOME MED LIST COMPLETE! XX SCH (17:15)
[2022-01-02] MEDS ORDERED: LEVALBUTEROL HFA 45MCG/ACT 15 GM INHALER INH PRN (17:25)
[2022-01-02] MEDS ORDERED: BISACODYL 10 MG SUPP PR PRN (17:25)
[2022-01-02] MEDS ORDERED: DOCUSATE SOD LIQ 100MG/10ML UDC GT PRN (17:25)
[2022-01-02] MEDS ORDERED: IPRATROPIUM 0.02% SOLN 0.5MG 2.5ML NEB NEB PRN (17:25)
[2022-01-02] MEDS ORDERED: PILL CUTTER 1 EACH XX PRN (17:45)
[2022-01-02] MEDS: LEVALBUTEROL 1.25 MG/0.5 ML CONCENTRATE NEB INH SCH (19:35)
[2022-01-02] MEDS: IPRATROPIUM 0.02% SOLN 0.5MG 2.5ML NEB NEB SCH (19:35)
[2022-01-02 20:27] VITALS: BP 107/71
[2022-01-02] MEDS: MIRALAX *UNIT DOSE* 17GM PACKET PO SCH (20:36)
[2022-01-02] MEDS: levETIRAcetam ORAL SOLUTION 500 MG/5 ML UDC GT SCH (20:38)
[2022-01-02] MEDS: FAMOTIDINE 20 MG TAB GT SCH (20:38)
[2022-01-02] MEDS: CETIRIZINE (ZyrTEC) 10 MG TAB GT SCH (20:38)
[2022-01-02] MEDS: LACOSAMIDE 50 MG TAB (VIMPAT) GT SCH (20:38)
[2022-01-02] MEDS: CYPROHEPTADINE 4 MG TAB GT SCH (20:38)
[2022-01-02] MEDS: CLORAZEPATE 3.75MG TAB GT SCH (20:45)
[2022-01-02] MEDS: CHLORHEXIDINE GLUCONATE 0.12 % 15ML UDC (PERIDEX ORAL RINSE) XX SCH (20:45)
[2022-01-02] MEDS: CLINDAMYCIN TOP 1% SOLN 60 ML BTL TOP SCH (20:47)
[2022-01-03] VITALS (8 sets, daily range): BP systolic 98–107; BP diastolic 55–67; O2SAT 89–96
[2022-01-03 06:44] LABS: HEMATOCRIT 34.4 % (36.0-47.0); HEMOGLOBIN 11.1 g/dl (12.0-15.5); MEAN CORPUSCULAR HEMOGLOBIN 33.1 pg (27.0-33.0); MEAN CORPUSCULAR HGB CONC 32.3 g/dl (32.0-36.5); MEAN CORPUSCULAR VOLUME 102.7 fl (80.0-96.0); PLATELET COUNT, AUTOMATED 222 10^3/uL (150-450); RED BLOOD COUNT 3.35 10^6/uL (4.00-5.40); WHITE BLOOD COUNT 14.9 10^3/uL (4.0-10.0)
[2022-01-03 07:18] LABS: ALBUMIN 2.9 GM/DL (3.2-5.2); ALT/SGPT 93 U/L (12-78); BILIRUBIN,TOTAL 1.2 MG/DL (0.2-1.0); BLOOD UREA NITROGEN 25 MG/DL (7-18); CALCIUM LEVEL 10.1 MG/DL (8.5-10.1); CARBON DIOXIDE LEVEL 32 MEQ/L (21-32); CHLORIDE LEVEL 107 MEQ/L (98-107); CREATININE FOR GFR 0.64 MG/DL (0.55-1.30); GLOMERULAR FILTRATION RATE > 60.0 (>58); GLUCOSE, FASTING 161 MG/DL (70-100); POTASSIUM SERUM 4.1 MEQ/L (3.5-5.1); SODIUM LEVEL 141 MEQ/L (136-145); TOTAL PROTEIN 7.1 GM/DL (6.4-8.2)
[2022-01-03] MEDS: LEVALBUTEROL 1.25 MG/0.5 ML CONCENTRATE NEB INH SCH ×4 (07:43→19:20)
[2022-01-03] MEDS: IPRATROPIUM 0.02% SOLN 0.5MG 2.5ML NEB NEB SCH ×4 (07:44→19:21)
[2022-01-03] MEDS ORDERED: SCOPOLAMINE 1MG TRANSDERMAL PATCH TOP SCH (09:00)
[2022-01-03] MEDS: CYPROHEPTADINE 4 MG TAB GT SCH ×3 (09:54→20:29)
[2022-01-03] MEDS: FAMOTIDINE 20 MG TAB GT SCH ×2 (09:54→20:30)
[2022-01-03] MEDS: CLORAZEPATE 3.75MG TAB GT SCH ×2 (09:55→20:30)
[2022-01-03] MEDS: METOCLOPRAMIDE 5 MG TAB GT SCH ×3 (09:56→20:30)
[2022-01-03] MEDS: levETIRAcetam ORAL SOLUTION 500 MG/5 ML UDC GT SCH ×2 (09:56→20:29)
[2022-01-03] MEDS: LACOSAMIDE 50 MG TAB (VIMPAT) GT SCH ×2 (09:56→20:30)
[2022-01-03] MEDS: CLINDAMYCIN TOP 1% SOLN 60 ML BTL TOP SCH ×2 (09:57→20:31)
[2022-01-03] MEDS: ENOXAPARIN 40MG/0.4ML SYRINGE (J1650 PER 10MG) SC SCH (09:57)
[2022-01-03] MEDS: LevoFLOXacin IV 750 MG in IV 1 EA IV SCH (12:20)
[2022-01-03] MEDS: CHLORHEXIDINE GLUCONATE 0.12 % 15ML UDC (PERIDEX ORAL RINSE) XX SCH (20:29)
[2022-01-03] MEDS: MIRALAX *UNIT DOSE* 17GM PACKET PO SCH (20:30)
[2022-01-03] MEDS: CETIRIZINE (ZyrTEC) 10 MG TAB GT SCH (20:30)
[2022-01-04 00:54] VITALS: O2SAT 95
[2022-01-04 06:00] VITALS: BP 110/71
[2022-01-04] MEDS: IPRATROPIUM 0.02% SOLN 0.5MG 2.5ML NEB NEB SCH ×4 (07:05→19:04)
[2022-01-04] MEDS: LEVALBUTEROL 1.25 MG/0.5 ML CONCENTRATE NEB INH SCH ×4 (07:06→19:04)
[2022-01-04 07:12] LABS: ALBUMIN 2.4 GM/DL (3.2-5.2); ALT/SGPT 87 U/L (12-78); BILIRUBIN,TOTAL 0.3 MG/DL (0.2-1.0); BLOOD UREA NITROGEN 30 MG/DL (7-18); CALCIUM LEVEL 9.9 MG/DL (8.5-10.1); CARBON DIOXIDE LEVEL 31 MEQ/L (21-32); CHLORIDE LEVEL 107 MEQ/L (98-107); CREATININE FOR GFR 0.58 MG/DL (0.55-1.30); GLOMERULAR FILTRATION RATE > 60.0 (>58); GLUCOSE, FASTING 111 MG/DL (70-100); POTASSIUM SERUM 3.7 MEQ/L (3.5-5.1); SODIUM LEVEL 141 MEQ/L (136-145); TOTAL PROTEIN 7.2 GM/DL (6.4-8.2)
[2022-01-04 07:21] LABS: HEMATOCRIT 31.6 % (36.0-47.0); HEMOGLOBIN 10.1 g/dl (12.0-15.5); MEAN CORPUSCULAR HEMOGLOBIN 33.3 pg (27.0-33.0); MEAN CORPUSCULAR VOLUME 104.3 fl (80.0-96.0); PLATELET COUNT, AUTOMATED 206 10^3/uL (150-450); RED BLOOD COUNT 3.03 10^6/uL (4.00-5.40); WHITE BLOOD COUNT 11.2 10^3/uL (4.0-10.0)
[2022-01-04 09:00] VITALS: O2SAT 93
[2022-01-04] MEDS: levETIRAcetam ORAL SOLUTION 500 MG/5 ML UDC GT SCH ×2 (09:29→21:53)
[2022-01-04] MEDS: ENOXAPARIN 40MG/0.4ML SYRINGE (J1650 PER 10MG) SC SCH (09:29)
[2022-01-04] MEDS: CLORAZEPATE 3.75MG TAB GT SCH ×2 (09:29→21:54)
[2022-01-04] MEDS: METOCLOPRAMIDE 5 MG TAB GT SCH ×3 (09:29→21:54)
[2022-01-04] MEDS: CYPROHEPTADINE 4 MG TAB GT SCH ×3 (09:30→21:54)
[2022-01-04] MEDS: LACOSAMIDE 50 MG TAB (VIMPAT) GT SCH ×2 (09:30→21:54)
[2022-01-04] MEDS: FAMOTIDINE 20 MG TAB GT SCH ×2 (09:31→21:54)
[2022-01-04] MEDS: CLINDAMYCIN TOP 1% SOLN 60 ML BTL TOP SCH ×2 (09:31→21:53)
[2022-01-04] MEDS: LevoFLOXacin IV 750 MG in IV 1 EA IV SCH (13:13)
[2022-01-04] MEDS: ERYTHROMYCIN OPHTH OINT OS SCH ×3 (13:14→21:53)
[2022-01-04 14:00] VITALS: BP 109/70
[2022-01-04] MEDS: CHLORHEXIDINE GLUCONATE 0.12 % 15ML UDC (PERIDEX ORAL RINSE) XX SCH (21:53)
[2022-01-04] MEDS: MIRALAX *UNIT DOSE* 17GM PACKET PO SCH (21:53)
[2022-01-04] MEDS: CETIRIZINE (ZyrTEC) 10 MG TAB GT SCH (21:54)
[2022-01-04 22:00] VITALS: BP 107/71
[2022-01-05 00:55] VITALS: O2SAT 97
[2022-01-05 06:00] VITALS: BP 108/72
[2022-01-05 06:37] LABS: HEMATOCRIT 32.7 % (36.0-47.0); HEMOGLOBIN 10.2 g/dl (12.0-15.5); MEAN CORPUSCULAR HEMOGLOBIN 32.6 pg (27.0-33.0); MEAN CORPUSCULAR HGB CONC 31.2 g/dl (32.0-36.5); MEAN CORPUSCULAR VOLUME 104.5 fl (80.0-96.0); PLATELET COUNT, AUTOMATED 225 10^3/uL (150-450); RED BLOOD COUNT 3.13 10^6/uL (4.00-5.40)
[2022-01-05 07:12] LABS: ALBUMIN 2.4 GM/DL (3.2-5.2); ALT/SGPT 100 U/L (12-78); BILIRUBIN,TOTAL 0.2 MG/DL (0.2-1.0); BLOOD UREA NITROGEN 29 MG/DL (7-18); CARBON DIOXIDE LEVEL 26 MEQ/L (21-32); CHLORIDE LEVEL 109 MEQ/L (98-107); CREATININE FOR GFR 0.61 MG/DL (0.55-1.30); GLOMERULAR FILTRATION RATE > 60.0 (>58); GLUCOSE, FASTING 128 MG/DL (70-100); POTASSIUM SERUM 3.7 MEQ/L (3.5-5.1); SODIUM LEVEL 143 MEQ/L (136-145); TOTAL PROTEIN 7.4 GM/DL (6.4-8.2)
[2022-01-05] MEDS: IPRATROPIUM 0.02% SOLN 0.5MG 2.5ML NEB NEB SCH ×4 (07:45→19:25)
[2022-01-05] MEDS: LEVALBUTEROL 1.25 MG/0.5 ML CONCENTRATE NEB INH SCH ×4 (07:45→19:25)
[2022-01-05] MEDS: CLORAZEPATE 3.75MG TAB GT SCH ×2 (09:02→20:49)
[2022-01-05] MEDS: CYPROHEPTADINE 4 MG TAB GT SCH ×3 (09:03→22:11)
[2022-01-05] MEDS: METOCLOPRAMIDE 5 MG TAB GT SCH ×3 (09:03→20:49)
[2022-01-05] MEDS: FAMOTIDINE 20 MG TAB GT SCH ×2 (09:03→20:49)
[2022-01-05] MEDS: ERYTHROMYCIN OPHTH OINT OS SCH ×3 (09:04→20:48)
[2022-01-05] MEDS: LACOSAMIDE 50 MG TAB (VIMPAT) GT SCH ×2 (09:04→20:49)
[2022-01-05] MEDS: ENOXAPARIN 40MG/0.4ML SYRINGE (J1650 PER 10MG) SC SCH (09:04)
[2022-01-05] MEDS: CLINDAMYCIN TOP 1% SOLN 60 ML BTL TOP SCH ×2 (09:05→20:48)
[2022-01-05] MEDS: levETIRAcetam ORAL SOLUTION 500 MG/5 ML UDC GT SCH ×2 (09:07→20:47)
[2022-01-05] MEDS: LevoFLOXacin 750 MG TABLET GT SCH (11:42)
[2022-01-05] MEDS: MIRALAX *UNIT DOSE* 17GM PACKET PO SCH ×2 (20:48→21:00)
[2022-01-05] MEDS: CHLORHEXIDINE GLUCONATE 0.12 % 15ML UDC (PERIDEX ORAL RINSE) XX SCH (20:48)
[2022-01-05] MEDS: CETIRIZINE (ZyrTEC) 10 MG TAB GT SCH (20:49)
[2022-01-05 22:00] VITALS: BP 113/69
[2022-01-06 02:02] VITALS: O2SAT 97
[2022-01-06] MEDS: LevoFLOXacin 750 MG TABLET GT SCH (05:39)
[2022-01-06 06:00] VITALS: BP 118/81
[2022-01-06 06:27] LABS: HEMATOCRIT 33.5 % (36.0-47.0); HEMOGLOBIN 10.7 g/dl (12.0-15.5); MEAN CORPUSCULAR HEMOGLOBIN 33.3 pg (27.0-33.0); MEAN CORPUSCULAR HGB CONC 31.9 g/dl (32.0-36.5); MEAN CORPUSCULAR VOLUME 104.4 fl (80.0-96.0); PLATELET COUNT, AUTOMATED 233 10^3/uL (150-450); RED BLOOD COUNT 3.21 10^6/uL (4.00-5.40); WHITE BLOOD COUNT 6.4 10^3/uL (4.0-10.0)
[2022-01-06 07:03] LABS: ALBUMIN 2.4 GM/DL (3.2-5.2); ALT/SGPT 82 U/L (12-78); BILIRUBIN,TOTAL 0.4 MG/DL (0.2-1.0); BLOOD UREA NITROGEN 25 MG/DL (7-18); CALCIUM LEVEL 9.3 MG/DL (8.5-10.1); CARBON DIOXIDE LEVEL 28 MEQ/L (21-32); CHLORIDE LEVEL 109 MEQ/L (98-107); CREATININE FOR GFR 0.51 MG/DL (0.55-1.30); GLOMERULAR FILTRATION RATE > 60.0 (>58); GLUCOSE, FASTING 110 MG/DL (70-100); POTASSIUM SERUM 3.9 MEQ/L (3.5-5.1); SODIUM LEVEL 142 MEQ/L (136-145); TOTAL PROTEIN 6.5 GM/DL (6.4-8.2)
[2022-01-06] MEDS: LEVALBUTEROL 1.25 MG/0.5 ML CONCENTRATE NEB INH SCH ×4 (07:28→19:10)
[2022-01-06] MEDS: IPRATROPIUM 0.02% SOLN 0.5MG 2.5ML NEB NEB SCH ×4 (07:28→19:11)
[2022-01-06] MEDS: CYPROHEPTADINE 4 MG TAB GT SCH ×3 (09:26→21:14)
[2022-01-06] MEDS: levETIRAcetam ORAL SOLUTION 500 MG/5 ML UDC GT SCH ×2 (09:26→21:14)
[2022-01-06] MEDS: LACOSAMIDE 50 MG TAB (VIMPAT) GT SCH ×2 (09:27→21:14)
[2022-01-06] MEDS: ENOXAPARIN 40MG/0.4ML SYRINGE (J1650 PER 10MG) SC SCH (09:27)
[2022-01-06] MEDS: FAMOTIDINE 20 MG TAB GT SCH ×2 (09:27→21:15)
[2022-01-06] MEDS: CLINDAMYCIN TOP 1% SOLN 60 ML BTL TOP SCH ×2 (09:28→21:16)
[2022-01-06] MEDS: CLORAZEPATE 3.75MG TAB GT SCH ×2 (09:30→21:16)
[2022-01-06] MEDS: ERYTHROMYCIN OPHTH OINT OS SCH ×3 (09:30→21:16)
[2022-01-06] MEDS: METOCLOPRAMIDE 5 MG TAB GT SCH ×3 (09:30→21:15)
[2022-01-06 14:00] VITALS: BP 116/79
[2022-01-06] MEDS: MIRALAX *UNIT DOSE* 17GM PACKET PO SCH (20:00)
[2022-01-06 21:05] VITALS: BP 110/75
[2022-01-06] MEDS: CETIRIZINE (ZyrTEC) 10 MG TAB GT SCH (21:15)
[2022-01-06] MEDS: CHLORHEXIDINE GLUCONATE 0.12 % 15ML UDC (PERIDEX ORAL RINSE) XX SCH (21:50)
[2022-01-07] MEDS: LevoFLOXacin 750 MG TABLET GT SCH (05:11)
[2022-01-07 06:00] VITALS: BP 120/78
[2022-01-07 06:35] LABS: HEMATOCRIT 32.9 % (36.0-47.0); HEMOGLOBIN 10.4 g/dl (12.0-15.5); MEAN CORPUSCULAR HEMOGLOBIN 33.1 pg (27.0-33.0); MEAN CORPUSCULAR HGB CONC 31.6 g/dl (32.0-36.5); MEAN CORPUSCULAR VOLUME 104.8 fl (80.0-96.0); PLATELET COUNT, AUTOMATED 209 10^3/uL (150-450); RED BLOOD COUNT 3.14 10^6/uL (4.00-5.40); WHITE BLOOD COUNT 5.4 10^3/uL (4.0-10.0)
[2022-01-07 07:02] LABS: BLOOD UREA NITROGEN 24 MG/DL (7-18); CALCIUM LEVEL 9.2 MG/DL (8.5-10.1); CARBON DIOXIDE LEVEL 26 MEQ/L (21-32); CHLORIDE LEVEL 108 MEQ/L (98-107); CREATININE FOR GFR 0.43 MG/DL (0.55-1.30); GLOMERULAR FILTRATION RATE > 60.0 (>58); GLUCOSE, FASTING 92 MG/DL (70-100); POTASSIUM SERUM 4.4 MEQ/L (3.5-5.1); SODIUM LEVEL 142 MEQ/L (136-145)
[2022-01-07] MEDS: LEVALBUTEROL 1.25 MG/0.5 ML CONCENTRATE NEB INH SCH ×2 (07:06→11:09)
[2022-01-07] MEDS: IPRATROPIUM 0.02% SOLN 0.5MG 2.5ML NEB NEB SCH ×2 (07:07→11:09)
[2022-01-07] MEDS: FAMOTIDINE 20 MG TAB GT SCH (08:29)
[2022-01-07] MEDS: CYPROHEPTADINE 4 MG TAB GT SCH (08:29)
[2022-01-07] MEDS: METOCLOPRAMIDE 5 MG TAB GT SCH (08:29)
[2022-01-07] MEDS: levETIRAcetam ORAL SOLUTION 500 MG/5 ML UDC GT SCH (08:29)
[2022-01-07] MEDS: ERYTHROMYCIN OPHTH OINT OS SCH (08:30)
[2022-01-07] MEDS: CLORAZEPATE 3.75MG TAB GT SCH (08:30)
[2022-01-07] MEDS: CLINDAMYCIN TOP 1% SOLN 60 ML BTL TOP SCH (08:30)
[2022-01-07] MEDS: ENOXAPARIN 40MG/0.4ML SYRINGE (J1650 PER 10MG) SC SCH (08:30)
[2022-01-07] MEDS: LACOSAMIDE 50 MG TAB (VIMPAT) GT SCH (08:30)
[2022-01-07 09:00] VITALS: O2SAT 96
[2022-01-07] MEDS ORDERED: ERYT5OIN25 OS (11:45)
[2022-01-07] MEDS ORDERED: LEVO750T13 GT (11:48)
== END 2022-01-07 13:40 | disposition home or self-care (01) | DRG 177 ==
LOC: M ED 11:30 → EDBD 11:30 → M ED INP 14:32 → ENRESERV 15:16 → M MSPAV 17:02
PROVIDERS: ADMIT Family Medicine; ATTEND Family Medicine
DX: J69.0 Pneumonitis due to inhalation of food and vomit (principal); G80.0 Spastic quadriplegic cerebral palsy; G93.1 Anoxic brain damage, not elsewhere classified; J45.909 Unspecified asthma, uncomplicated; G40.909 Epilepsy, unspecified, not intractable, without status epilepticus; K59.09 Other constipation; Z88.0 Allergy status to penicillin; Z88.8 Allergy status to other drugs, medicaments and biological substances; Z88.7 Allergy status to serum and vaccine; Z91.018 Allergy to other foods; Z79.899 Other long term (current) drug therapy; R68.0 Hypothermia, not associated with low environmental temperature; Z93.1 Gastrostomy status

== ENCOUNTER 2022-03-02 15:27 | Inpatient (IN) | payer MEDICARE, MEDICAID ==
[~2022-03-02] VITALS: Ht 154.9 cm; Wt 72.5 kg
[~2022-03-02 15:27] MED LIST changes: +APAP325T4 PO; +BENE1POW4 GT; +DOCU60SY3 GT; +ERYT5OIN25 OS; +GNP15SYP PO; +JEVILIQ12 PO; +LEVA1.2519 INH; +LEVO1TAB39 PO; +LEVO1TAB40 GT; -LEVO500T4 PO; -LEVO750T13 GT; +TOBR3.5O2 OD; -TOBR3OI OD
[2022-03-02 17:26] LABS: BASO % 0.2 % (0.0-1.0); EOS # 0.2 10^3/uL (0.0-0.5); EOS % 2.6 % (0.0-3.0); HEMATOCRIT 31.9 % (36.0-47.0); HEMOGLOBIN 9.8 g/dl (12.0-15.5); LYMPH # 1.3 10^3/uL (1.5-5.0); LYMPH % 19.9 % (24.0-44.0); MEAN CORPUSCULAR HEMOGLOBIN 33.3 pg (27.0-33.0); MEAN CORPUSCULAR HGB CONC 30.7 g/dl (32.0-36.5); MEAN CORPUSCULAR VOLUME 108.5 fl (80.0-96.0); MONO # 0.6 10^3/uL (0.0-0.8); MONO % 9.1 % (2.0-8.0); NEUTROPHILS # 4.5 10^3/uL (1.5-8.5); NEUTROPHILS % 67.9 % (36.0-66.0); PLATELET COUNT, AUTOMATED 267 10^3/uL (150-450); RED BLOOD COUNT 2.94 10^6/uL (4.00-5.40); WHITE BLOOD COUNT 6.6 10^3/uL (4.0-10.0)
[2022-03-02 18:01] LABS: CK-MB VALUE MASS 2.7 NG/ML (<3.6); MB/CK RELATIVE INDEX 3.86 (< OR =4)
[2022-03-02 18:18] LABS: ALBUMIN 2.6 GM/DL (3.2-5.2); ALT/SGPT 49 U/L (12-78); BILIRUBIN,DIRECT < 0.1 MG/DL (0.0-0.2); BILIRUBIN,TOTAL 0.2 MG/DL (0.2-1.0); BLOOD UREA NITROGEN 23 MG/DL (7-18); CALCIUM LEVEL 8.5 MG/DL (8.5-10.1); CARBON DIOXIDE LEVEL 29 MEQ/L (21-32); CHLORIDE LEVEL 109 MEQ/L (98-107); CREATININE FOR GFR 0.39 MG/DL (0.55-1.30); GLOMERULAR FILTRATION RATE > 60.0 (>58); GLUCOSE, FASTING 109 MG/DL (70-100); NT-PRO BNP 97 PG/ML (<125); POTASSIUM SERUM 5.5 MEQ/L (3.5-5.1); SODIUM LEVEL 141 MEQ/L (136-145); TOTAL PROTEIN 6.8 GM/DL (6.4-8.2)
[2022-03-02] MEDS ORDERED: HOME MED LIST COMPLETE! XX SCH (18:20)
[2022-03-02] MEDS: CLORAZEPATE 3.75MG TAB GT SCH (21:00)
[2022-03-02] MEDS ORDERED: ACETAMINOPHEN TAB 650MG DOSE (2X325MG) PO PRN (21:15)
[2022-03-02] MEDS ORDERED: DOCUSATE SOD LIQ 100MG/10ML UDC GT PRN (21:15)
[2022-03-02] MEDS ORDERED: LEVALBUTEROL 1.25 MG/0.5 ML CONCENTRATE NEB NEB PRN (21:15)
[2022-03-02 22:08] LABS: RSV AMPLIFICATION NEGATIVE (NEGATIVE)
[2022-03-02] MEDS ORDERED: PILL CUTTER 1 EACH XX PRN (22:20)
[2022-03-02 23:02] LABS: VENOUS BASE EXCESS 5.4 (-2.0-2.0); VENOUS O2 SATURATION 99.1 % (60.0-80.0); VENOUS PARTIAL PRESSURE O2 178.4 mmHg (30.0-50.0); VENOUS PH 7.367 UNITS (7.330-7.430); VENOUS STANDARD HCO3 29.3 MEQ/L; VENOUS TOTAL CO2 33.7 MEQ/L (24.0-28.0)
[2022-03-02 23:15] LABS: INR 0.88; PARTIAL THROMBOPLASTIN TIME 28.7 SECONDS (25.9-37.0); PROTHROMBIN TIME 12.3 SECONDS (12.7-14.5)
[2022-03-02 23:30] VITALS: BP 149/78
[2022-03-03] VITALS (21 sets, daily range): BP systolic 86–140; BP diastolic 55–78
[2022-03-03] MEDS: CYPROHEPTADINE 4 MG TAB GT SCH ×4 (01:08→20:44)
[2022-03-03] MEDS: levETIRAcetam ORAL SOLUTION 500 MG/5 ML UDC GT SCH ×3 (01:08→20:43)
[2022-03-03] MEDS: METOCLOPRAMIDE 5 MG TAB GT SCH ×4 (01:08→20:44)
[2022-03-03] MEDS: LEVALBUTEROL 1.25 MG/0.5 ML CONCENTRATE NEB INH SCH ×4 (07:14→19:33)
[2022-03-03] MEDS: IPRATROPIUM 0.02% SOLN 0.5MG 2.5ML NEB NEB SCH ×3 (07:14→19:33)
[2022-03-03] MEDS ORDERED: NS 1,000 ML IV ONE ×2 (07:55→15:00)
[2022-03-03] MEDS ORDERED: CEFEPIME HCL 1 GM in D5W MINI-BAG PLUS 50 ML IV SCH (08:00)
[2022-03-03] MEDS: NS 1,000 ML IV SCH ×2 (08:21→20:57)
[2022-03-03 08:36] LABS: BASO % 0.4 % (0.0-1.0); EOS # 0.1 10^3/uL (0.0-0.5); EOS % 2.4 % (0.0-3.0); HEMATOCRIT 32.7 % (36.0-47.0); HEMOGLOBIN 9.9 g/dl (12.0-15.5); LYMPH # 0.9 10^3/uL (1.5-5.0); LYMPH % 17.1 % (24.0-44.0); MEAN CORPUSCULAR HGB CONC 30.3 g/dl (32.0-36.5); MONO # 0.4 10^3/uL (0.0-0.8); MONO % 7.6 % (2.0-8.0); NEUTROPHILS % 72.3 % (36.0-66.0); PLATELET COUNT, AUTOMATED 298 10^3/uL (150-450); WHITE BLOOD COUNT 5.5 10^3/uL (4.0-10.0)
[2022-03-03 09:19] LABS: BLOOD UREA NITROGEN 20 MG/DL (7-18); CALCIUM LEVEL 9.1 MG/DL (8.5-10.1); CARBON DIOXIDE LEVEL 27 MEQ/L (21-32); CHLORIDE LEVEL 109 MEQ/L (98-107); CREATININE FOR GFR 0.44 MG/DL (0.55-1.30); GLOMERULAR FILTRATION RATE > 60.0 (>58); GLUCOSE, FASTING 133 MG/DL (70-100); POTASSIUM SERUM 4.7 MEQ/L (3.5-5.1); SODIUM LEVEL 140 MEQ/L (136-145)
[2022-03-03] MEDS: CEFEPIME HCL 2 GM in D5W MINI-BAG PLUS 50 ML IV SCH ×2 (10:05→18:12)
[2022-03-03] MEDS: NYSTATIN 100,000 UNITS/GM TOPICAL PWD 15 GM TOP SCH ×2 (10:05→20:44)
[2022-03-03] MEDS: SCOPOLAMINE 1MG TRANSDERMAL PATCH TOP SCH (10:06)
[2022-03-03] MEDS: ENOXAPARIN 40MG/0.4ML SYRINGE (J1650 PER 10MG) SC SCH (10:07)
[2022-03-03] MEDS: FAMOTIDINE 20 MG TAB GT SCH ×2 (10:07→20:44)
[2022-03-03] MEDS: LACOSAMIDE 50 MG TAB (VIMPAT) PO SCH ×3 (10:07→20:43)
[2022-03-03] MEDS ORDERED: VANCOMYCIN HCL 750 MG, VIAL MATE ADAPTER 1 EACH in D5W 250 ML IV ONE (11:00)
[2022-03-03] MEDS: CLORAZEPATE 3.75MG TAB GT SCH ×2 (11:16→20:44)
[2022-03-03] MEDS ORDERED: VANCOMYCIN HCL 500 MG in D5W MINI-BAG PLUS 100 ML IV ONE (12:00)
[2022-03-03] MEDS: MIRALAX *UNIT DOSE* 17GM PACKET GT SCH (20:43)
[2022-03-03] MEDS: CETIRIZINE (ZyrTEC) 5 MG/5 ML UDC DYE FREE GT SCH (20:58)
[2022-03-04] VITALS (12 sets, daily range): BP systolic 102–143; BP diastolic 52–78; O2SAT 90–96
[2022-03-04] MEDS: CEFEPIME HCL 2 GM in D5W MINI-BAG PLUS 50 ML IV SCH ×3 (02:05→17:38)
[2022-03-04] MEDS: NS 1,000 ML IV SCH ×2 (03:55→09:13)
[2022-03-04 05:21] LABS: HEMATOCRIT 29.5 % (36.0-47.0); MEAN CORPUSCULAR HEMOGLOBIN 33.7 pg (27.0-33.0); MEAN CORPUSCULAR HGB CONC 30.5 g/dl (32.0-36.5); MEAN CORPUSCULAR VOLUME 110.5 fl (80.0-96.0); PLATELET COUNT, AUTOMATED 273 10^3/uL (150-450); RED BLOOD COUNT 2.67 10^6/uL (4.00-5.40); WHITE BLOOD COUNT 6.9 10^3/uL (4.0-10.0)
[2022-03-04 06:29] LABS: BLOOD UREA NITROGEN 13 MG/DL (7-18); CARBON DIOXIDE LEVEL 25 MEQ/L (21-32); CHLORIDE LEVEL 117 MEQ/L (98-107); CREATININE FOR GFR 0.36 MG/DL (0.55-1.30); GLOMERULAR FILTRATION RATE > 60.0 (>58); GLUCOSE, FASTING 79 MG/DL (70-100); SODIUM LEVEL 145 MEQ/L (136-145)
[2022-03-04 06:30] LABS: ALT/SGPT 36 U/L (12-78); BILIRUBIN,TOTAL 0.3 MG/DL (0.2-1.0); CALCIUM LEVEL 7.9 MG/DL (8.5-10.1); TOTAL PROTEIN 6.3 GM/DL (6.4-8.2)
[2022-03-04] MEDS: levETIRAcetam ORAL SOLUTION 500 MG/5 ML UDC GT SCH ×2 (08:56→22:41)
[2022-03-04] MEDS: LACOSAMIDE 50 MG TAB (VIMPAT) PO SCH ×3 (08:56→22:40)
[2022-03-04] MEDS: FAMOTIDINE 20 MG TAB GT SCH ×2 (08:56→22:41)
[2022-03-04] MEDS: IPRATROPIUM 0.02% SOLN 0.5MG 2.5ML NEB NEB SCH ×4 (08:56→20:39)
[2022-03-04] MEDS: LEVALBUTEROL 1.25 MG/0.5 ML CONCENTRATE NEB INH SCH ×4 (08:56→20:39)
[2022-03-04] MEDS: CYPROHEPTADINE 4 MG TAB GT SCH ×3 (08:57→22:40)
[2022-03-04] MEDS: CLORAZEPATE 3.75MG TAB GT SCH ×2 (08:57→22:40)
[2022-03-04] MEDS: NYSTATIN 100,000 UNITS/GM TOPICAL PWD 15 GM TOP SCH ×2 (08:57→23:47)
[2022-03-04] MEDS: ENOXAPARIN 40MG/0.4ML SYRINGE (J1650 PER 10MG) SC SCH (08:57)
[2022-03-04] MEDS: METOCLOPRAMIDE 5 MG TAB GT SCH ×3 (09:00→22:40)
[2022-03-04] MEDS: BISACODYL 10 MG SUPP PR PRN (10:44)
[2022-03-04] MEDS ORDERED: VANCOMYCIN HCL 1,000 MG, VIAL MATE ADAPTER 1 EACH in NS 250 ML IV SCH (11:00)
[2022-03-04] MEDS: CETIRIZINE (ZyrTEC) 5 MG/5 ML UDC DYE FREE GT SCH (22:40)
[2022-03-04] MEDS: MIRALAX *UNIT DOSE* 17GM PACKET GT SCH (22:41)
[2022-03-05] MEDS: CEFEPIME HCL 2 GM in D5W MINI-BAG PLUS 50 ML IV SCH ×3 (02:25→17:07)
[2022-03-05 04:23] VITALS: O2SAT 96
[2022-03-05 06:09] LABS: HEMATOCRIT 27.6 % (36.0-47.0); HEMOGLOBIN 8.5 g/dl (12.0-15.5); MEAN CORPUSCULAR HGB CONC 30.8 g/dl (32.0-36.5); MEAN CORPUSCULAR VOLUME 110.4 fl (80.0-96.0); PLATELET COUNT, AUTOMATED 263 10^3/uL (150-450); WHITE BLOOD COUNT 4.4 10^3/uL (4.0-10.0)
[2022-03-05 07:10] LABS: ALBUMIN 1.9 GM/DL (3.2-5.2); ALT/SGPT 34 U/L (12-78); BILIRUBIN,TOTAL 0.2 MG/DL (0.2-1.0); BLOOD UREA NITROGEN 12 MG/DL (7-18); CALCIUM LEVEL 8.6 MG/DL (8.5-10.1); CARBON DIOXIDE LEVEL 25 MEQ/L (21-32); CHLORIDE LEVEL 115 MEQ/L (98-107); CREATININE FOR GFR 0.37 MG/DL (0.55-1.30); GLOMERULAR FILTRATION RATE > 60.0 (>58); GLUCOSE, FASTING 86 MG/DL (70-100); POTASSIUM SERUM 4.2 MEQ/L (3.5-5.1); SODIUM LEVEL 144 MEQ/L (136-145); TOTAL PROTEIN 6.3 GM/DL (6.4-8.2)
[2022-03-05] MEDS: LEVALBUTEROL 1.25 MG/0.5 ML CONCENTRATE NEB INH SCH ×4 (07:17→19:48)
[2022-03-05] MEDS: IPRATROPIUM 0.02% SOLN 0.5MG 2.5ML NEB NEB SCH ×4 (07:17→19:48)
[2022-03-05] MEDS: CYPROHEPTADINE 4 MG TAB GT SCH ×3 (08:12→22:42)
[2022-03-05] MEDS: FAMOTIDINE 20 MG TAB GT SCH ×2 (08:12→22:42)
[2022-03-05] MEDS: LACOSAMIDE 50 MG TAB (VIMPAT) PO SCH ×3 (08:12→22:42)
[2022-03-05] MEDS: levETIRAcetam ORAL SOLUTION 500 MG/5 ML UDC GT SCH ×2 (08:12→22:41)
[2022-03-05] MEDS: METOCLOPRAMIDE 5 MG TAB GT SCH ×3 (08:12→22:41)
[2022-03-05] MEDS: NYSTATIN 100,000 UNITS/GM TOPICAL PWD 15 GM TOP SCH ×2 (08:13→22:43)
[2022-03-05] MEDS: CLORAZEPATE 3.75MG TAB GT SCH ×2 (08:13→22:41)
[2022-03-05] MEDS: ENOXAPARIN 40MG/0.4ML SYRINGE (J1650 PER 10MG) SC SCH (08:13)
[2022-03-05 10:27] VITALS: O2SAT 98
[2022-03-05 14:00] VITALS: BP 115/59
[2022-03-05 20:00] VITALS: BP 142/73
[2022-03-05] MEDS: MIRALAX *UNIT DOSE* 17GM PACKET GT SCH (22:41)
[2022-03-05] MEDS: CETIRIZINE (ZyrTEC) 5 MG/5 ML UDC DYE FREE GT SCH (22:41)
[2022-03-05 23:52] VITALS: O2SAT 93
[2022-03-06] VITALS (9 sets, daily range): BP systolic 109–135; BP diastolic 50–64; O2SAT 92–98
[2022-03-06] MEDS: CEFEPIME HCL 2 GM in D5W MINI-BAG PLUS 50 ML IV SCH ×3 (02:10→17:04)
[2022-03-06 07:20] LABS: HEMATOCRIT 30.7 % (36.0-47.0); HEMOGLOBIN 9.4 g/dl (12.0-15.5); MEAN CORPUSCULAR HEMOGLOBIN 33.8 pg (27.0-33.0); MEAN CORPUSCULAR HGB CONC 30.6 g/dl (32.0-36.5); MEAN CORPUSCULAR VOLUME 110.4 fl (80.0-96.0); PLATELET COUNT, AUTOMATED 306 10^3/uL (150-450); RED BLOOD COUNT 2.78 10^6/uL (4.00-5.40); WHITE BLOOD COUNT 4.7 10^3/uL (4.0-10.0)
[2022-03-06] MEDS: IPRATROPIUM 0.02% SOLN 0.5MG 2.5ML NEB NEB SCH ×4 (07:30→19:41)
[2022-03-06] MEDS: LEVALBUTEROL 1.25 MG/0.5 ML CONCENTRATE NEB INH SCH ×4 (07:30→19:41)
[2022-03-06 08:07] LABS: ALBUMIN 2.1 GM/DL (3.2-5.2); ALT/SGPT 36 U/L (12-78); BILIRUBIN,TOTAL 0.2 MG/DL (0.2-1.0); BLOOD UREA NITROGEN 16 MG/DL (7-18); CALCIUM LEVEL 9.2 MG/DL (8.5-10.1); CARBON DIOXIDE LEVEL 25 MEQ/L (21-32); CHLORIDE LEVEL 112 MEQ/L (98-107); CREATININE FOR GFR 0.36 MG/DL (0.55-1.30); GLOMERULAR FILTRATION RATE > 60.0 (>58); GLUCOSE, FASTING 64 MG/DL (70-100); POTASSIUM SERUM 4.8 MEQ/L (3.5-5.1); SODIUM LEVEL 142 MEQ/L (136-145)
[2022-03-06] MEDS: levETIRAcetam ORAL SOLUTION 500 MG/5 ML UDC GT SCH ×2 (09:06→22:50)
[2022-03-06] MEDS: ENOXAPARIN 40MG/0.4ML SYRINGE (J1650 PER 10MG) SC SCH (09:07)
[2022-03-06] MEDS: METOCLOPRAMIDE 5 MG TAB GT SCH ×3 (09:08→22:49)
[2022-03-06] MEDS: LACOSAMIDE 50 MG TAB (VIMPAT) PO SCH ×3 (09:08→22:51)
[2022-03-06] MEDS: CYPROHEPTADINE 4 MG TAB GT SCH ×3 (09:08→22:52)
[2022-03-06] MEDS: FAMOTIDINE 20 MG TAB GT SCH ×2 (09:09→22:52)
[2022-03-06] MEDS: CLORAZEPATE 3.75MG TAB GT SCH ×2 (09:10→22:49)
[2022-03-06] MEDS: SCOPOLAMINE 1MG TRANSDERMAL PATCH TOP SCH (09:12)
[2022-03-06] MEDS: NYSTATIN 100,000 UNITS/GM TOPICAL PWD 15 GM TOP SCH ×2 (09:12→22:50)
[2022-03-06] MEDS: MIRALAX *UNIT DOSE* 17GM PACKET GT SCH (22:51)
[2022-03-06] MEDS: CETIRIZINE (ZyrTEC) 5 MG/5 ML UDC DYE FREE GT SCH (22:51)
[2022-03-07] VITALS (10 sets, daily range): BP systolic 125–148; BP diastolic 61–82; O2SAT 95–98
[2022-03-07] MEDS: CEFEPIME HCL 2 GM in D5W MINI-BAG PLUS 50 ML IV SCH ×2 (02:14→09:10)
[2022-03-07 05:58] LABS: HEMATOCRIT 30.3 % (36.0-47.0); HEMOGLOBIN 9.1 g/dl (12.0-15.5); MEAN CORPUSCULAR VOLUME 109.8 fl (80.0-96.0); PLATELET COUNT, AUTOMATED 319 10^3/uL (150-450); RED BLOOD COUNT 2.76 10^6/uL (4.00-5.40); WHITE BLOOD COUNT 4.2 10^3/uL (4.0-10.0)
[2022-03-07 06:43] LABS: BLOOD UREA NITROGEN 19 MG/DL (7-18); CALCIUM LEVEL 9.2 MG/DL (8.5-10.1); CARBON DIOXIDE LEVEL 27 MEQ/L (21-32); CHLORIDE LEVEL 111 MEQ/L (98-107); GLOMERULAR FILTRATION RATE > 60.0 (>58); GLUCOSE, FASTING 86 MG/DL (70-100); MAGNESIUM LEVEL 1.9 MG/DL (1.8-2.4); POTASSIUM SERUM 4.4 MEQ/L (3.5-5.1); SODIUM LEVEL 144 MEQ/L (136-145)
[2022-03-07] MEDS: IPRATROPIUM 0.02% SOLN 0.5MG 2.5ML NEB NEB SCH ×3 (07:08→15:17)
[2022-03-07] MEDS: LEVALBUTEROL 1.25 MG/0.5 ML CONCENTRATE NEB INH SCH ×3 (07:08→15:17)
[2022-03-07] MEDS: CLORAZEPATE 3.75MG TAB GT SCH (09:10)
[2022-03-07] MEDS: FAMOTIDINE 20 MG TAB GT SCH (09:10)
[2022-03-07] MEDS: CYPROHEPTADINE 4 MG TAB GT SCH ×2 (09:10→15:35)
[2022-03-07] MEDS: METOCLOPRAMIDE 5 MG TAB GT SCH ×2 (09:10→15:35)
[2022-03-07] MEDS: levETIRAcetam ORAL SOLUTION 500 MG/5 ML UDC GT SCH (09:10)
[2022-03-07] MEDS: LACOSAMIDE 50 MG TAB (VIMPAT) PO SCH ×2 (09:10→15:35)
[2022-03-07] MEDS: ENOXAPARIN 40MG/0.4ML SYRINGE (J1650 PER 10MG) SC SCH (09:10)
[2022-03-07] MEDS: NYSTATIN 100,000 UNITS/GM TOPICAL PWD 15 GM TOP SCH (09:11)
[2022-03-07] MEDS: BISACODYL 10 MG SUPP PR PRN (13:12)
== END 2022-03-07 16:26 | disposition home or self-care (01) | DRG 177 ==
LOC: M ED 15:27 → M ED INP 20:58 → ENRESERV 22:19 → M MSPAV 23:18 → OBSVTOIN 03-03 07:51 → M ICU 03-03 08:44 → M MSPAV 03-04 10:45
PROVIDERS: ADMIT Family Medicine; ATTEND Family Medicine
DX: J69.0 Pneumonitis due to inhalation of food and vomit (principal); G80.0 Spastic quadriplegic cerebral palsy; I50.32 Chronic diastolic (congestive) heart failure; J98.11 Atelectasis; F72 Severe intellectual disabilities; K21.9 Gastro-esophageal reflux disease without esophagitis; G40.909 Epilepsy, unspecified, not intractable, without status epilepticus; J45.909 Unspecified asthma, uncomplicated; K59.09 Other constipation; M85.80 Other specified disorders of bone density and structure, unspecified site; R68.0 Hypothermia, not associated with low environmental temperature; E87.5 Hyperkalemia; I95.9 Hypotension, unspecified; Z66 Do not resuscitate; L08.9 Local infection of the skin and subcutaneous tissue, unspecified; Z88.0 Allergy status to penicillin; Z88.8 Allergy status to other drugs, medicaments and biological substances; Z91.018 Allergy to other foods; Z88.7 Allergy status to serum and vaccine; Z79.899 Other long term (current) drug therapy; Z93.1 Gastrostomy status

== ENCOUNTER 2022-03-18 15:50 | Observation (INO) | payer MEDICARE, MEDICAID ==
[~2022-03-18] VITALS: Ht 154.9 cm; Wt 63.9 kg
[2022-03-18 16:35] LABS: BASO % 0.2 % (0.0-1.0); EOS # 0.2 10^3/uL (0.0-0.5); EOS % 4.5 % (0.0-3.0); HEMATOCRIT 34.6 % (36.0-47.0); HEMOGLOBIN 10.6 g/dl (12.0-15.5); LYMPH % 22.4 % (24.0-44.0); MEAN CORPUSCULAR HEMOGLOBIN 33.7 pg (27.0-33.0); MEAN CORPUSCULAR HGB CONC 30.6 g/dl (32.0-36.5); MEAN CORPUSCULAR VOLUME 109.8 fl (80.0-96.0); MONO # 0.4 10^3/uL (0.0-0.8); MONO % 8.5 % (2.0-8.0); NEUTROPHILS # 2.9 10^3/uL (1.5-8.5); NEUTROPHILS % 64.2 % (36.0-66.0); PLATELET COUNT, AUTOMATED 172 10^3/uL (150-450); RED BLOOD COUNT 3.15 10^6/uL (4.00-5.40); WHITE BLOOD COUNT 4.5 10^3/uL (4.0-10.0)
[2022-03-18 17:02] LABS: ABG pH (ARTERIAL) 7.395 UNITS (7.350-7.450)
[2022-03-18 17:03] LABS: ABG BASE EXCESS 4.5 (-2.0-2.0); ABG HCO3 30.2 MEQ/L (22.0-26.0); ABG O2 SATURATION 98.1 % (95.0-99.0); ABG PARTIAL PRESSURE CO2 50.5 mmHg (35.0-45.0); ABG PARTIAL PRESSURE O2 110.5 mmHg (75.0-100.0); ABG STANDARD HCO3 28.5 MEQ/L (22.0-26.0); ABG TOTAL CO2 31.8 MEQ/L (22.0-29.0)
[2022-03-18 17:13] LABS: RSV AMPLIFICATION NEGATIVE (NEGATIVE)
[2022-03-18 17:22] LABS: ALBUMIN 2.8 GM/DL (3.2-5.2); ALT/SGPT 49 U/L (12-78); BILIRUBIN,DIRECT < 0.1 MG/DL (0.0-0.2); BILIRUBIN,TOTAL 0.3 MG/DL (0.2-1.0); BLOOD UREA NITROGEN 28 MG/DL (7-18); CALCIUM LEVEL 9.2 MG/DL (8.5-10.1); CARBON DIOXIDE LEVEL 32 MEQ/L (21-32); CHLORIDE LEVEL 105 MEQ/L (98-107); CREATININE FOR GFR 0.49 MG/DL (0.55-1.30); GLOMERULAR FILTRATION RATE > 60.0 (>58); GLUCOSE, FASTING 106 MG/DL (70-100); POTASSIUM SERUM 4.5 MEQ/L (3.5-5.1); SODIUM LEVEL 140 MEQ/L (136-145); TOTAL PROTEIN 7.4 GM/DL (6.4-8.2)
[2022-03-18] MEDS ORDERED: FAMO20TA4 GT (17:38)
[2022-03-18] MEDS ORDERED: HOME MED LIST COMPLETE! XX SCH (17:40)
[2022-03-18] MEDS ORDERED: ACETAMINOPHEN TAB 650MG DOSE (2X325MG) PO PRN (18:50)
[2022-03-18] MEDS ORDERED: IPRATROPIUM 0.5MG/ALBUTEROL 2.5MG INH SOL UD 3ML (DUONEB) NEB PRN (18:50)
[2022-03-18] MEDS ORDERED: BISACODYL 10 MG SUPP PR PRN (18:50)
[2022-03-18] MEDS ORDERED: IPRATROPIUM 0.02% SOLN 0.5MG 2.5ML NEB NEB PRN (18:50)
[2022-03-18] MEDS: LEVALBUTEROL 1.25 MG/0.5 ML CONCENTRATE NEB INH SCH (19:42)
[2022-03-18] MEDS: IPRATROPIUM 0.02% SOLN 0.5MG 2.5ML NEB NEB SCH (19:42)
[2022-03-18 23:26] VITALS: BP 158/87
[2022-03-18] MEDS: NYSTATIN 100,000 UNITS/GM TOPICAL PWD 15 GM TOP SCH (23:50)
[2022-03-18] MEDS: FAMOTIDINE 20 MG TAB GT SCH (23:50)
[2022-03-18] MEDS: METOCLOPRAMIDE 5 MG TAB GT SCH (23:50)
[2022-03-18] MEDS: MIRALAX *UNIT DOSE* 17GM PACKET GT SCH (23:50)
[2022-03-18] MEDS: LACOSAMIDE 10MG/ML 20ML VIAL (VIMPAT) IV SCH (23:51)
[2022-03-19] VITALS (16 sets, daily range): BP systolic 124–145; BP diastolic 66–78; O2SAT 90–98
[2022-03-19] MEDS: CYPROHEPTADINE 4 MG TAB GT SCH ×4 (00:54→22:40)
[2022-03-19] MEDS: CLORAZEPATE 3.75MG TAB GT SCH ×3 (00:54→23:05)
[2022-03-19] MEDS: levETIRAcetam ORAL SOLUTION 500 MG/5 ML UDC GT SCH ×3 (00:54→22:39)
[2022-03-19 05:56] LABS: HEMOGLOBIN 11.2 g/dl (12.0-15.5); MEAN CORPUSCULAR HEMOGLOBIN 33.8 pg (27.0-33.0); MEAN CORPUSCULAR HGB CONC 31.1 g/dl (32.0-36.5); MEAN CORPUSCULAR VOLUME 108.8 fl (80.0-96.0); PLATELET COUNT, AUTOMATED 196 10^3/uL (150-450); RED BLOOD COUNT 3.31 10^6/uL (4.00-5.40); WHITE BLOOD COUNT 5.5 10^3/uL (4.0-10.0)
[2022-03-19 06:04] LABS: VENOUS BASE EXCESS 5.6 (-2.0-2.0); VENOUS HCO3 31.2 MEQ/L (23.0-27.0); VENOUS O2 SATURATION 98.8 % (60.0-80.0); VENOUS PARTIAL PRESSURE CO2 49.7 mmHg (38.0-50.0); VENOUS PARTIAL PRESSURE O2 139.6 mmHg (30.0-50.0); VENOUS PH 7.415 UNITS (7.330-7.430); VENOUS STANDARD HCO3 29.6 MEQ/L; VENOUS TOTAL CO2 32.7 MEQ/L (24.0-28.0)
[2022-03-19 06:17] LABS: ALBUMIN 3.1 GM/DL (3.2-5.2); ALT/SGPT 55 U/L (12-78); BILIRUBIN,TOTAL 0.3 MG/DL (0.2-1.0); BLOOD UREA NITROGEN 23 MG/DL (7-18); CALCIUM LEVEL 9.6 MG/DL (8.5-10.1); CARBON DIOXIDE LEVEL 33 MEQ/L (21-32); CHLORIDE LEVEL 105 MEQ/L (98-107); CREATININE FOR GFR 0.43 MG/DL (0.55-1.30); GLOMERULAR FILTRATION RATE > 60.0 (>58); GLUCOSE, FASTING 75 MG/DL (70-100); MAGNESIUM LEVEL 2.4 MG/DL (1.8-2.4); POTASSIUM SERUM 4.4 MEQ/L (3.5-5.1); SODIUM LEVEL 140 MEQ/L (136-145)
[2022-03-19] MEDS: IPRATROPIUM 0.02% SOLN 0.5MG 2.5ML NEB NEB SCH ×4 (07:04→20:25)
[2022-03-19] MEDS: LEVALBUTEROL 1.25 MG/0.5 ML CONCENTRATE NEB INH SCH ×4 (07:04→20:25)
[2022-03-19] MEDS ORDERED: SCOPOLAMINE 1MG TRANSDERMAL PATCH TOP SCH (09:00)
[2022-03-19] MEDS: LACOSAMIDE 10MG/ML 20ML VIAL (VIMPAT) IV SCH ×2 (09:39→23:45)
[2022-03-19] MEDS: NYSTATIN 100,000 UNITS/GM TOPICAL PWD 15 GM TOP SCH ×2 (09:39→21:00)
[2022-03-19] MEDS: ENOXAPARIN 40MG/0.4ML SYRINGE (J1650 PER 10MG) SC SCH (09:39)
[2022-03-19] MEDS: FAMOTIDINE 20 MG TAB GT SCH ×2 (09:39→22:40)
[2022-03-19] MEDS: METOCLOPRAMIDE 5 MG TAB GT SCH ×3 (09:40→22:41)
[2022-03-19] MEDS: MIRALAX *UNIT DOSE* 17GM PACKET GT SCH (22:39)
[2022-03-20] VITALS (21 sets, daily range): BP systolic 108–144; BP diastolic 57–88; O2SAT 93–100
[2022-03-20 05:19] LABS: HEMATOCRIT 37.5 % (36.0-47.0); HEMOGLOBIN 11.5 g/dl (12.0-15.5); MEAN CORPUSCULAR HEMOGLOBIN 33.4 pg (27.0-33.0); MEAN CORPUSCULAR HGB CONC 30.7 g/dl (32.0-36.5); PLATELET COUNT, AUTOMATED 186 10^3/uL (150-450); RED BLOOD COUNT 3.44 10^6/uL (4.00-5.40); WHITE BLOOD COUNT 10.7 10^3/uL (4.0-10.0)
[2022-03-20 06:02] LABS: ALBUMIN 2.9 GM/DL (3.2-5.2); ALT/SGPT 87 U/L (12-78); BILIRUBIN,TOTAL 0.7 MG/DL (0.2-1.0); BLOOD UREA NITROGEN 21 MG/DL (7-18); CALCIUM LEVEL 9.2 MG/DL (8.5-10.1); CARBON DIOXIDE LEVEL 31 MEQ/L (21-32); CHLORIDE LEVEL 106 MEQ/L (98-107); CREATININE FOR GFR 0.46 MG/DL (0.55-1.30); GLOMERULAR FILTRATION RATE > 60.0 (>58); GLUCOSE, FASTING 89 MG/DL (70-100); MAGNESIUM LEVEL 2.4 MG/DL (1.8-2.4); POTASSIUM SERUM 4.1 MEQ/L (3.5-5.1); SODIUM LEVEL 141 MEQ/L (136-145); TOTAL PROTEIN 7.6 GM/DL (6.4-8.2)
[2022-03-20] MEDS: LEVALBUTEROL 1.25 MG/0.5 ML CONCENTRATE NEB INH SCH ×4 (07:15→20:06)
[2022-03-20] MEDS: IPRATROPIUM 0.02% SOLN 0.5MG 2.5ML NEB NEB SCH ×4 (07:16→20:06)
[2022-03-20] MEDS: LACOSAMIDE 10MG/ML 20ML VIAL (VIMPAT) IV SCH ×2 (09:39→21:31)
[2022-03-20] MEDS: ENOXAPARIN 40MG/0.4ML SYRINGE (J1650 PER 10MG) SC SCH (09:39)
[2022-03-20] MEDS: levETIRAcetam ORAL SOLUTION 500 MG/5 ML UDC GT SCH ×2 (09:39→21:31)
[2022-03-20] MEDS: CLORAZEPATE 3.75MG TAB GT SCH ×2 (09:40→21:38)
[2022-03-20] MEDS: CYPROHEPTADINE 4 MG TAB GT SCH ×3 (09:40→21:30)
[2022-03-20] MEDS: FAMOTIDINE 20 MG TAB GT SCH ×2 (09:40→21:30)
[2022-03-20] MEDS: METOCLOPRAMIDE 5 MG TAB GT SCH ×3 (09:40→21:30)
[2022-03-20] MEDS: NYSTATIN 100,000 UNITS/GM TOPICAL PWD 15 GM TOP SCH ×2 (09:41→21:31)
[2022-03-20] MEDS: MIRALAX *UNIT DOSE* 17GM PACKET GT SCH (21:30)
[2022-03-21 04:00] VITALS: BP 114/56
[2022-03-21 04:22] LABS: HEMATOCRIT 33.8 % (36.0-47.0); HEMOGLOBIN 10.2 g/dl (12.0-15.5); MEAN CORPUSCULAR HEMOGLOBIN 33.1 pg (27.0-33.0); MEAN CORPUSCULAR HGB CONC 30.2 g/dl (32.0-36.5); MEAN CORPUSCULAR VOLUME 109.7 fl (80.0-96.0); PLATELET COUNT, AUTOMATED 187 10^3/uL (150-450); RED BLOOD COUNT 3.08 10^6/uL (4.00-5.40); WHITE BLOOD COUNT 6.3 10^3/uL (4.0-10.0)
[2022-03-21 05:00] LABS: ALBUMIN 2.6 GM/DL (3.2-5.2); ALT/SGPT 83 U/L (12-78); BILIRUBIN,TOTAL 0.6 MG/DL (0.2-1.0); BLOOD UREA NITROGEN 17 MG/DL (7-18); CALCIUM LEVEL 9.3 MG/DL (8.5-10.1); CARBON DIOXIDE LEVEL 32 MEQ/L (21-32); CHLORIDE LEVEL 106 MEQ/L (98-107); GLOMERULAR FILTRATION RATE > 60.0 (>58); GLUCOSE, FASTING 78 MG/DL (70-100); MAGNESIUM LEVEL 2.3 MG/DL (1.8-2.4); POTASSIUM SERUM 4.2 MEQ/L (3.5-5.1); SODIUM LEVEL 142 MEQ/L (136-145); TOTAL PROTEIN 6.8 GM/DL (6.4-8.2)
[2022-03-21] MEDS: LEVALBUTEROL 1.25 MG/0.5 ML CONCENTRATE NEB INH SCH (07:07)
[2022-03-21] MEDS: IPRATROPIUM 0.02% SOLN 0.5MG 2.5ML NEB NEB SCH (07:08)
[2022-03-21 08:00] VITALS: BP 123/63
[2022-03-21] MEDS: METOCLOPRAMIDE 5 MG TAB GT SCH (08:45)
[2022-03-21] MEDS: ENOXAPARIN 40MG/0.4ML SYRINGE (J1650 PER 10MG) SC SCH (08:45)
[2022-03-21] MEDS: levETIRAcetam ORAL SOLUTION 500 MG/5 ML UDC GT SCH (08:45)
[2022-03-21] MEDS: FAMOTIDINE 20 MG TAB GT SCH (08:45)
[2022-03-21] MEDS: NYSTATIN 100,000 UNITS/GM TOPICAL PWD 15 GM TOP SCH (08:46)
[2022-03-21] MEDS: LACOSAMIDE 10MG/ML 20ML VIAL (VIMPAT) IV SCH (10:20)
[2022-03-21] MEDS: CLORAZEPATE 3.75MG TAB GT SCH (10:32)
[2022-03-21] MEDS: CYPROHEPTADINE 4 MG TAB GT SCH (10:32)
== END 2022-03-21 11:07 ==
LOC: M ED 15:50 → EDBD 15:50 → M ED INP 15:51 → M PCU 23:27
PROVIDERS: ADMIT Family Medicine; ATTEND Family Medicine
DX: R09.02 Hypoxemia (principal); G40.909 Epilepsy, unspecified, not intractable, without status epilepticus; G80.0 Spastic quadriplegic cerebral palsy; G93.1 Anoxic brain damage, not elsewhere classified; F72 Severe intellectual disabilities; R68.0 Hypothermia, not associated with low environmental temperature; L27.0 Generalized skin eruption due to drugs and medicaments taken internally; K59.00 Constipation, unspecified; K21.9 Gastro-esophageal reflux disease without esophagitis; Z79.899 Other long term (current) drug therapy; Z88.0 Allergy status to penicillin; Z88.1 Allergy status to other antibiotic agents; Z88.8 Allergy status to other drugs, medicaments and biological substances; Z88.7 Allergy status to serum and vaccine; Z91.018 Allergy to other foods; M85.89 Other specified disorders of bone density and structure, multiple sites; J45.909 Unspecified asthma, uncomplicated; Z93.1 Gastrostomy status; I50.9 Heart failure, unspecified
CPT/HCPCS: 36415; 36600; 71045; 71250; 74018; 74176; 80048; 80053; 80076; 82803; 83605; 83735; 83880; 84145; 85025; 85027; 87040; 87631; 93005; 93041; 94640; 94667; 94668; 94760; 96372; 96374; 96376; 99285; C9254; G0378; J1650

== ENCOUNTER → 2022-07-03 | Outpatient (CLI) | payer MEDICARE, MEDICAID ==
[~2022-07-03] MED LIST changes: +FAMO20TA4 GT
[2022-07-03 15:34] LABS: BASO % 0.2 % (0.0-1.0); EOS # 0.3 10^3/uL (0.0-0.5); EOS % 6.1 % (0.0-3.0); HEMATOCRIT 34.6 % (36.0-47.0); HEMOGLOBIN 10.8 g/dl (12.0-15.5); LYMPH # 2.1 10^3/uL (1.5-5.0); LYMPH % 49.9 % (24.0-44.0); MEAN CORPUSCULAR HEMOGLOBIN 32.7 pg (27.0-33.0); MEAN CORPUSCULAR HGB CONC 31.2 g/dl (32.0-36.5); MEAN CORPUSCULAR VOLUME 104.8 fl (80.0-96.0); MONO # 0.7 10^3/uL (0.0-0.8); MONO % 15.9 % (2.0-8.0); NEUTROPHILS # 1.2 10^3/uL (1.5-8.5); NEUTROPHILS % 27.4 % (36.0-66.0); PLATELET COUNT, AUTOMATED 191 10^3/uL (150-450); WHITE BLOOD COUNT 4.3 10^3/uL (4.0-10.0)
[2022-07-03 16:04] LABS: ALKALINE PHOSPHATASE 353 U/L (46-116); ALT/SGPT 65 U/L (7.0-40); AST/SGOT 72 U/L (<34); BILIRUBIN,TOTAL 0.3 MG/DL (0.3-1.2); BLOOD UREA NITROGEN 26 MG/DL (9-23); CALCIUM LEVEL 9.6 MG/DL (8.5-10.1); CARBON DIOXIDE LEVEL 31 MMOL/L (20-31); CHLORIDE LEVEL 101 MMOL/L (98-107); GLOMERULAR FILTRATION RATE > 60.0 (>58); GLUCOSE, FASTING 64 MG/DL (60-100); POTASSIUM SERUM 4.8 MMOL/L (3.5-5.1); SODIUM LEVEL 140 MMOL/L (136-145); TOTAL PROTEIN 7.6 G/DL (5.7-8.2)
== END ==
LOC: M PLALAB 14:00
PROVIDERS: ATTEND Nurse Practitioner Family
DX: G40.89 Other seizures (principal)

== ENCOUNTER 2022-07-14 13:00 | Emergency (ER) | payer MEDICARE, MEDICAID ==
[2022-07-14 14:31] VITALS: BP 120/67
== END 2022-07-14 16:15 | disposition home or self-care (01) ==
LOC: M ED 13:00 → EDBD 13:00 → M ED 16:15
DX: K94.23 Gastrostomy malfunction (principal); F79 Unspecified intellectual disabilities; Z79.82 Long term (current) use of aspirin; Z79.2 Long term (current) use of antibiotics; Z79.899 Other long term (current) drug therapy; Z88.7 Allergy status to serum and vaccine; Z88.1 Allergy status to other antibiotic agents; Z88.0 Allergy status to penicillin; Z91.018 Allergy to other foods
CPT/HCPCS: 74018; 99284; C1729

== ENCOUNTER → 2022-07-22 | Outpatient (POV) | payer MEDICARE, MEDICAID ==
[2022-07-22 13:20] VITALS: BP 114/86
== END ==
LOC: M IRPOV 13:00
PROVIDERS: ATTEND Radiology Diagnostic Radiology
DX: Z43.1 Encounter for attention to gastrostomy (principal); Z88.0 Allergy status to penicillin; Z88.1 Allergy status to other antibiotic agents; Z88.7 Allergy status to serum and vaccine; Z88.8 Allergy status to other drugs, medicaments and biological substances; Z91.018 Allergy to other foods

== ENCOUNTER 2022-07-26 01:36 | Emergency (ER) | payer MEDICARE, MEDICAID ==
[2022-07-26 02:27] LABS: BASO % 0.3 % (0.0-1.0); EOS # 0.2 10^3/uL (0.0-0.5); EOS % 2.9 % (0.0-3.0); HEMOGLOBIN 10.3 g/dl (12.0-15.5); LYMPH # 1.2 10^3/uL (1.5-5.0); LYMPH % 16.7 % (24.0-44.0); MEAN CORPUSCULAR HEMOGLOBIN 33.1 pg (27.0-33.0); MEAN CORPUSCULAR HGB CONC 30.3 g/dl (32.0-36.5); MEAN CORPUSCULAR VOLUME 109.3 fl (80.0-96.0); NEUTROPHILS # 4.7 10^3/uL (1.5-8.5); NEUTROPHILS % 65.8 % (36.0-66.0); PLATELET COUNT, AUTOMATED 234 10^3/uL (150-450); RED BLOOD COUNT 3.11 10^6/uL (4.00-5.40); WHITE BLOOD COUNT 7.2 10^3/uL (4.0-10.0)
[2022-07-26 02:32] LABS: ABG BASE EXCESS 5.5 (-2.0-2.0); ABG HCO3 31.8 MEQ/L (22.0-26.0); ABG O2 SATURATION 93.2 % (95.0-99.0); ABG PARTIAL PRESSURE CO2 54.8 mmHg (35.0-45.0); ABG PARTIAL PRESSURE O2 71.6 mmHg (75.0-100.0); ABG STANDARD HCO3 29.3 MEQ/L (22.0-26.0); ABG TOTAL CO2 33.4 MEQ/L (22.0-29.0); ABG pH (ARTERIAL) 7.381 UNITS (7.350-7.450)
[2022-07-26 02:50] LABS: ALBUMIN 2.8 G/DL (3.2-5.2); ALKALINE PHOSPHATASE 347 U/L (46-116); ALT/SGPT 68 U/L (7.0-40); AST/SGOT 76 U/L (<34); BILIRUBIN,DIRECT 0.2 MG/DL (<0.4); BILIRUBIN,TOTAL 0.5 MG/DL (0.3-1.2); BLOOD UREA NITROGEN 27 MG/DL (9-23); CALCIUM LEVEL 9.3 MG/DL (8.5-10.1); CARBON DIOXIDE LEVEL 32 MMOL/L (20-31); CHLORIDE LEVEL 103 MMOL/L (98-107); CK-MB VALUE MASS 1.3 NG/ML (<3.6); CPK CREATINE PHOSPHOKINASE 37 U/L (34-145); CREATININE FOR GFR 0.55 MG/DL (0.55-1.30); GLOMERULAR FILTRATION RATE > 60.0 (>58); GLUCOSE, FASTING 113 MG/DL (60-100); MB/CK RELATIVE INDEX 3.51 (< OR =4); POTASSIUM SERUM 4.1 MMOL/L (3.5-5.1); SODIUM LEVEL 142 MMOL/L (136-145); TOTAL PROTEIN 7.5 G/DL (5.7-8.2)
[2022-07-26 07:00] VITALS: BP 119/82
== END 2022-07-26 09:20 | disposition home or self-care (01) ==
LOC: EDBD 01:36 → M ED 01:36
DX: R09.02 Hypoxemia (principal); I25.2 Old myocardial infarction; G40.909 Epilepsy, unspecified, not intractable, without status epilepticus; Z93.1 Gastrostomy status; F82 Specific developmental disorder of motor function; E55.9 Vitamin D deficiency, unspecified; Z88.0 Allergy status to penicillin; Z88.1 Allergy status to other antibiotic agents; Z88.7 Allergy status to serum and vaccine; Z88.8 Allergy status to other drugs, medicaments and biological substances; Z79.82 Long term (current) use of aspirin; Z79.899 Other long term (current) drug therapy

== ENCOUNTER → 2023-01-29 | Outpatient (CLI) | payer MEDICARE, MEDICAID | LOC: M RAD 14:38 | DX: S93.492A Sprain of other ligament of left ankle, initial encounter (principal); Z60.8 Other problems related to social environment ==

== ENCOUNTER 2023-02-02 10:47 | Emergency (ER) | payer MEDICARE, MEDICAID ==
[~2023-02-02] VITALS: Ht 149.9 cm; Wt 68.3 kg
[2023-02-02 13:54] VITALS: BP 109/70; TEMP 95.8; O2SAT 100
== END 2023-02-02 13:55 | disposition home or self-care (01) ==
LOC: M ED 10:47
DX: S82.55XA Nondisplaced fracture of medial malleolus of left tibia, initial encounter for closed fracture (principal); M81.0 Age-related osteoporosis without current pathological fracture; M62.572 Muscle wasting and atrophy, not elsewhere classified, left ankle and foot; Z88.0 Allergy status to penicillin; Z88.1 Allergy status to other antibiotic agents; Z88.7 Allergy status to serum and vaccine; Z88.8 Allergy status to other drugs, medicaments and biological substances

== ENCOUNTER 2023-03-16 07:36 | Inpatient (IN) | payer MEDICARE, MEDICAID ==
[2023-03-16] VITALS (26 sets, daily range): BP systolic 98–156; BP diastolic 50–70; TEMP 96.7–97.8; O2SAT 93–100
[~2023-03-16] VITALS: Ht 144.8 cm; Wt 69.5 kg
[~2023-03-16 07:36] MED LIST changes: +APAP325T4 GT; -APAP325T4 PO; +JEVILIQ12 GT; -JEVILIQ12 PO
[2023-03-16] MEDS ORDERED: CEFEPIME HCL 2 GM in D5W MINI-BAG PLUS 50 ML IV ONE (09:15)
[2023-03-16 09:26] LABS: HEMATOCRIT 36.1 % (36.0-47.0); HEMOGLOBIN 10.8 g/dl (12.0-15.5); MEAN CORPUSCULAR HEMOGLOBIN 34.3 pg (27.0-33.0); MEAN CORPUSCULAR HGB CONC 29.9 g/dl (32.0-36.5); RED BLOOD COUNT 3.15 10^6/uL (4.00-5.40); WHITE BLOOD COUNT 8.5 10^3/uL (4.0-10.0)
[2023-03-16 09:30] LABS: ALBUMIN 2.6 G/DL (3.2-5.2); ALKALINE PHOSPHATASE 236 U/L (46-116); ALT/SGPT 53 U/L (7.0-40); AST/SGOT 67 U/L (<34); BILIRUBIN,DIRECT 0.1 MG/DL (<0.4); BILIRUBIN,TOTAL 0.4 MG/DL (0.3-1.2); BLOOD UREA NITROGEN 33 MG/DL (9-23); CALCIUM LEVEL 8.9 MG/DL (8.5-10.1); CARBON DIOXIDE LEVEL 31 MMOL/L (20-31); CHLORIDE LEVEL 101 MMOL/L (98-107); CREATININE FOR GFR 0.58 MG/DL (0.55-1.30); GLOMERULAR FILTRATION RATE > 60.0 (>58); GLUCOSE, FASTING 122 MG/DL (60-100); POTASSIUM SERUM 5.4 MMOL/L (3.5-5.1); SODIUM LEVEL 138 MMOL/L (136-145); TOTAL PROTEIN 7.6 G/DL (5.7-8.2)
[2023-03-16 09:34] LABS: THYROID STIMULATING HORMONE 4.232 uIU/ML (0.55-4.78)
[2023-03-16] MEDS ORDERED: NS 2,030 ML in IV 1 EA IV ONE (09:40)
[2023-03-16 09:57] LABS: MEAN CORPUSCULAR VOLUME 114.6 fl (80.0-96.0)
[2023-03-16 10:03] LABS: ATYPICAL LYMPH 6 % (0-5); EOSINOPHILS 2 % (0-3); LYMPHOCYTES 5 % (16-44); MONOCYTES 7 % (0-5); NEUTROPHILS 79 % (28-66)
[2023-03-16] MEDS ORDERED: NOREPINEPHRINE 4MG IN D5 250ML 4 MG in IV 1 EA IV SCH ×2 (10:40)
[2023-03-16] MEDS ORDERED: MED REC IN PROGRESS XX SCH (11:15)
[2023-03-16] MEDS ORDERED: HumuLIN R (REGULAR) INSULIN (NovoLIN R) **100U/ML** PER UNIT IV STA (11:42)
[2023-03-16] MEDS ORDERED: DEXTROSE 50% 50ML SYRINGE IV STA (11:42)
[2023-03-16] MEDS ORDERED: CALCIUM GLUCONATE 1,000 MG in D5W MINI-BAG PLUS 100 ML IV ONE (11:45)
[2023-03-16] MEDS ORDERED: IBUP100S16 GT (12:20)
[2023-03-16] MEDS ORDERED: NEOM14OI TOP (12:20)
[2023-03-16] MEDS ORDERED: DESI13CR2 TOP (12:20)
[2023-03-16] MEDS ORDERED: BENE1POW7 GT (12:20)
[2023-03-16] MEDS ORDERED: GUAI100S51 GT (12:20)
[2023-03-16] MEDS ORDERED: ZADI1DRO OU (12:20)
[2023-03-16] MEDS ORDERED: DEBR6.5S4 OTIC (12:20)
[2023-03-16] MEDS: VASOPRESSIN INJ 20 UNITS in NS 499 ML IV SCH ×2 (12:24→20:20)
[2023-03-16] MEDS ORDERED: HOME MED LIST COMPLETE! XX SCH (12:30)
[2023-03-16] MEDS ORDERED: IBUPROFEN 100MG 5ML SUSP UDC DYE FREE GT PRN (12:45)
[2023-03-16] MEDS ORDERED: ACETAMINOPHEN 325MG/10.15ML UDC GT PRN (12:45)
[2023-03-16] MEDS ORDERED: BISACODYL 10MG SUPP PR PRN (12:45)
[2023-03-16] MEDS ORDERED: PILL CUTTER 1 EACH XX PRN (14:45)
[2023-03-16] MEDS: LEVALBUTEROL 1.25MG 0.5ML CONCENTRATE NEB INH SCH ×2 (15:02→19:03)
[2023-03-16 16:15] LABS: BLOOD UREA NITROGEN 31 MG/DL (9-23); CARBON DIOXIDE LEVEL 29 MMOL/L (20-31); CHLORIDE LEVEL 107 MMOL/L (98-107); CREATININE FOR GFR 0.52 MG/DL (0.55-1.30); GLOMERULAR FILTRATION RATE > 60.0 (>58); GLUCOSE, FASTING 91 MG/DL (60-100); POTASSIUM SERUM 4.3 MMOL/L (3.5-5.1); SODIUM LEVEL 142 MMOL/L (136-145)
[2023-03-16] MEDS: METOCLOPRAMIDE 5 MG TAB GT SCH ×2 (17:05→20:49)
[2023-03-16] MEDS: CYPROHEPTADINE 4 MG TAB GT SCH ×2 (17:05→20:49)
[2023-03-16] MEDS: CEFEPIME HCL 2 GM in D5W MINI-BAG PLUS 50 ML IV SCH (17:56)
[2023-03-16] MEDS: LACOSAMIDE 10MG/ML 20ML VIAL (VIMPAT) IV SCH (20:48)
[2023-03-16] MEDS: FAMOTIDINE 20 MG TAB GT SCH (20:48)
[2023-03-16] MEDS: levETIRAcetam ORAL SOLUTION 500MG/5ML UDC GT SCH (20:48)
[2023-03-16] MEDS: CLORAZEPATE 3.75MG TAB GT SCH (20:48)
[2023-03-17] VITALS (21 sets, daily range): BP systolic 92–142; BP diastolic 52–71; TEMP 97–98.3; O2SAT 90–100
[2023-03-17] MEDS: CEFEPIME HCL 2 GM in D5W MINI-BAG PLUS 50 ML IV SCH ×3 (01:25→18:00)
[2023-03-17] MEDS: VASOPRESSIN INJ 20 UNITS in NS 499 ML IV SCH (02:23)
[2023-03-17 05:23] LABS: BLOOD UREA NITROGEN 23 MG/DL (9-23); CALCIUM LEVEL 8.3 MG/DL (8.5-10.1); CARBON DIOXIDE LEVEL 31 MMOL/L (20-31); CHLORIDE LEVEL 110 MMOL/L (98-107); GLOMERULAR FILTRATION RATE > 60.0 (>58); GLUCOSE, FASTING 78 MG/DL (60-100); MAGNESIUM LEVEL 2.1 MG/DL (1.8-2.4); POTASSIUM SERUM 4.3 MMOL/L (3.5-5.1); SODIUM LEVEL 144 MMOL/L (136-145)
[2023-03-17] MEDS: LEVALBUTEROL 1.25MG 0.5ML CONCENTRATE NEB INH SCH ×2 (07:55→11:20)
[2023-03-17] MEDS: PANTOPRAZOLE 40MG VIAL IV SCH (09:28)
[2023-03-17] MEDS: LACOSAMIDE 10MG/ML 20ML VIAL (VIMPAT) IV SCH (09:28)
[2023-03-17] MEDS: levETIRAcetam ORAL SOLUTION 500MG/5ML UDC GT SCH ×2 (09:29→21:09)
[2023-03-17] MEDS: FAMOTIDINE 20 MG TAB GT SCH ×2 (09:29→21:10)
[2023-03-17] MEDS: CLORAZEPATE 3.75MG TAB GT SCH ×2 (09:29→21:09)
[2023-03-17] MEDS: CYPROHEPTADINE 4 MG TAB GT SCH ×3 (09:29→21:10)
[2023-03-17 09:30] LABS: BASO % 0.1 % (0.0-1.0); EOS # 0.2 10^3/uL (0.0-0.5); EOS % 2.5 % (0.0-3.0); HEMATOCRIT 29.7 % (36.0-47.0); LYMPH # 1.7 10^3/uL (1.5-5.0); MEAN CORPUSCULAR HEMOGLOBIN 34.1 pg (27.0-33.0); MEAN CORPUSCULAR HGB CONC 30.3 g/dl (32.0-36.5); MEAN CORPUSCULAR VOLUME 112.5 fl (80.0-96.0); MONO # 0.8 10^3/uL (0.0-0.8); MONO % 11.3 % (2.0-8.0); NEUTROPHILS # 4.2 10^3/uL (1.5-8.5); NEUTROPHILS % 60.8 % (36.0-66.0); RED BLOOD COUNT 2.64 10^6/uL (4.00-5.40); WHITE BLOOD COUNT 6.8 10^3/uL (4.0-10.0)
[2023-03-17] MEDS: METOCLOPRAMIDE 5 MG TAB GT SCH ×3 (09:30→21:10)
[2023-03-17 12:54] LABS: PLTBLUE- EDTA FREE CALC 118 K/mm3 (172-450)
[2023-03-17 12:55] LABS: PLTBLUE- EDTA FREE MACHINE 107 10^3/uL (172-450)
[2023-03-17 12:56] LABS: HEMATOCRIT 29.8 % (36.0-47.0); MEAN CORPUSCULAR HEMOGLOBIN 34.4 pg (27.0-33.0); MEAN CORPUSCULAR HGB CONC 30.2 g/dl (32.0-36.5); MEAN CORPUSCULAR VOLUME 113.7 fl (80.0-96.0); PLATELET COUNT, AUTOMATED 140 10^3/uL (150-450); RED BLOOD COUNT 2.62 10^6/uL (4.00-5.40); WHITE BLOOD COUNT 7.4 10^3/uL (4.0-10.0)
[2023-03-17 13:40] LABS: ATYPICAL LYMPH 2 % (0-5); BASOPHILS 1 % (0-1); EOSINOPHILS 3 % (0-3); LYMPHOCYTES 20 % (16-44); MONOCYTES 6 % (0-5); NEUTROPHILS 68 % (28-66); PLATELET ESTIMATE DECREASED (NORMAL)
[2023-03-17] MEDS: D5W/0.45% SODIUM CHLORIDE 1,000 ML IV SCH (16:05)
[2023-03-17] MEDS: ENOXAPARIN 40MG/0.4ML SYRINGE (J1650 PER 10MG) SC SCH (16:05)
[2023-03-17] MEDS: SODIUM CHLORIDE HYPERTONIC 3% 15ML NEB SOL INH SCH (20:16)
[2023-03-17] MEDS: LEVALBUTEROL HFA 45MCG/ACT 15GM INHALER INH SCH (20:16)
[2023-03-17] MEDS ORDERED: ENTER DRUG NAME HERE (PATIENT'S OWN MED) GT SCH (21:00)
[2023-03-17] MEDS: LACOSAMIDE 10 MG/ML GT SCH (21:11)
[2023-03-18] VITALS (7 sets, daily range): BP systolic 103–138; BP diastolic 58–69; TEMP 95.5–98.2; O2SAT 91–100
[2023-03-18] MEDS: LEVALBUTEROL HFA 45MCG/ACT 15GM INHALER INH SCH ×4 (01:35→19:47)
[2023-03-18] MEDS: SODIUM CHLORIDE HYPERTONIC 3% 15ML NEB SOL INH SCH ×4 (01:35→19:47)
[2023-03-18] MEDS: CEFEPIME HCL 2 GM in D5W MINI-BAG PLUS 50 ML IV SCH ×3 (02:49→17:32)
[2023-03-18 06:13] LABS: BASO % 0.5 % (0.0-1.0); EOS # 0.2 10^3/uL (0.0-0.5); EOS % 2.8 % (0.0-3.0); HEMATOCRIT 29.7 % (36.0-47.0); LYMPH # 1.5 10^3/uL (1.5-5.0); LYMPH % 25.9 % (24.0-44.0); MEAN CORPUSCULAR HEMOGLOBIN 34.1 pg (27.0-33.0); MEAN CORPUSCULAR HGB CONC 30.3 g/dl (32.0-36.5); MEAN CORPUSCULAR VOLUME 112.5 fl (80.0-96.0); MONO # 0.7 10^3/uL (0.0-0.8); MONO % 11.9 % (2.0-8.0); NEUTROPHILS # 3.3 10^3/uL (1.5-8.5); PLATELET COUNT, AUTOMATED 119 10^3/uL (150-450); RED BLOOD COUNT 2.64 10^6/uL (4.00-5.40); WHITE BLOOD COUNT 5.7 10^3/uL (4.0-10.0)
[2023-03-18 06:37] LABS: BLOOD UREA NITROGEN 18 MG/DL (9-23); CALCIUM LEVEL 8.4 MG/DL (8.5-10.1); CARBON DIOXIDE LEVEL 30 MMOL/L (20-31); CHLORIDE LEVEL 109 MMOL/L (98-107); CREATININE FOR GFR 0.54 MG/DL (0.55-1.30); GLOMERULAR FILTRATION RATE > 60.0 (>58); GLUCOSE, FASTING 126 MG/DL (60-100); MAGNESIUM LEVEL 1.9 MG/DL (1.8-2.4); POTASSIUM SERUM 4.2 MMOL/L (3.5-5.1); SODIUM LEVEL 145 MMOL/L (136-145)
[2023-03-18] MEDS ORDERED: DOXYCYCLINE HYCLATE 100MG TABLET PO SCH (09:00)
[2023-03-18] MEDS: D5W/0.45% SODIUM CHLORIDE 1,000 ML IV SCH (09:14)
[2023-03-18] MEDS: levETIRAcetam ORAL SOLUTION 500MG/5ML UDC GT SCH ×2 (09:14→20:57)
[2023-03-18] MEDS: FAMOTIDINE 20 MG TAB GT SCH ×2 (09:33→20:57)
[2023-03-18] MEDS: CLORAZEPATE 3.75MG TAB GT SCH ×2 (09:33→21:06)
[2023-03-18] MEDS: LACOSAMIDE 10 MG/ML GT SCH ×2 (09:33→21:01)
[2023-03-18] MEDS: PANTOPRAZOLE 40MG VIAL IV SCH (09:33)
[2023-03-18] MEDS: METOCLOPRAMIDE 5 MG TAB GT SCH ×3 (09:33→20:57)
[2023-03-18] MEDS: CYPROHEPTADINE 4 MG TAB GT SCH ×3 (09:34→20:57)
[2023-03-18] MEDS: ENOXAPARIN 40MG/0.4ML SYRINGE (J1650 PER 10MG) SC SCH (09:42)
[2023-03-18] MEDS ORDERED: D5W 1,000 ML IV SCH (11:25)
[2023-03-18] MEDS: DOXYCYCLINE HYCLATE 100MG TABLET GT SCH (20:58)
[2023-03-18] MEDS: NYSTATIN OINTMENT 15 GM TOP SCH (21:07)
[2023-03-19] VITALS (7 sets, daily range): BP systolic 135–154; BP diastolic 66–88; TEMP 93.2–97.9; O2SAT 90–99
[2023-03-19] MEDS: CEFEPIME HCL 2 GM in D5W MINI-BAG PLUS 50 ML IV SCH ×3 (01:11→18:28)
[2023-03-19] MEDS: LEVALBUTEROL HFA 45MCG/ACT 15GM INHALER INH SCH ×4 (01:22→19:37)
[2023-03-19] MEDS: SODIUM CHLORIDE HYPERTONIC 3% 15ML NEB SOL INH SCH ×4 (01:22→19:37)
[2023-03-19 05:14] LABS: BASO % 0.3 % (0.0-1.0); EOS # 0.3 10^3/uL (0.0-0.5); EOS % 7.1 % (0.0-3.0); HEMATOCRIT 29.8 % (36.0-47.0); HEMOGLOBIN 8.9 g/dl (12.0-15.5); LYMPH # 1.6 10^3/uL (1.5-5.0); LYMPH % 41.5 % (24.0-44.0); MEAN CORPUSCULAR HEMOGLOBIN 34.2 pg (27.0-33.0); MEAN CORPUSCULAR HGB CONC 29.9 g/dl (32.0-36.5); MONO # 0.7 10^3/uL (0.0-0.8); MONO % 16.5 % (2.0-8.0); NEUTROPHILS # 1.3 10^3/uL (1.5-8.5); NEUTROPHILS % 33.8 % (36.0-66.0)
[2023-03-19 05:20] LABS: MEAN CORPUSCULAR VOLUME 114.6 fl (80.0-96.0)
[2023-03-19 05:21] LABS: PLATELET COUNT, AUTOMATED 133 10^3/uL (150-450)
[2023-03-19 05:35] LABS: BLOOD UREA NITROGEN 19 MG/DL (9-23); CALCIUM LEVEL 8.5 MG/DL (8.5-10.1); CARBON DIOXIDE LEVEL 32 MMOL/L (20-31); CHLORIDE LEVEL 110 MMOL/L (98-107); CREATININE FOR GFR 0.43 MG/DL (0.55-1.30); GLOMERULAR FILTRATION RATE > 60.0 (>58); GLUCOSE, FASTING 96 MG/DL (60-100); POTASSIUM SERUM 4.1 MMOL/L (3.5-5.1); SODIUM LEVEL 145 MMOL/L (136-145)
[2023-03-19 06:19] LABS: ANISOCYTOSIS 1+; PLATELET ESTIMATE NORMAL (NORMAL)
[2023-03-19 11:13] LABS: PROCALCITONIN 0.37 ng/ml
[2023-03-19] MEDS: METOCLOPRAMIDE 5 MG TAB GT SCH ×3 (12:01→20:36)
[2023-03-19] MEDS: CYPROHEPTADINE 4 MG TAB GT SCH ×3 (12:01→20:36)
[2023-03-19] MEDS: levETIRAcetam ORAL SOLUTION 500MG/5ML UDC GT SCH ×2 (12:02→20:36)
[2023-03-19] MEDS: PANTOPRAZOLE 40MG VIAL IV SCH (12:02)
[2023-03-19] MEDS: CLORAZEPATE 3.75MG TAB GT SCH ×2 (12:02→20:36)
[2023-03-19] MEDS: DOXYCYCLINE HYCLATE 100MG TABLET GT SCH ×2 (12:03→20:36)
[2023-03-19] MEDS: FAMOTIDINE 20 MG TAB GT SCH ×2 (12:03→20:36)
[2023-03-19] MEDS: ENOXAPARIN 40MG/0.4ML SYRINGE (J1650 PER 10MG) SC SCH (12:03)
[2023-03-19] MEDS: LACOSAMIDE 10 MG/ML GT SCH ×2 (12:06→23:03)
[2023-03-19] MEDS: NYSTATIN OINTMENT 15 GM TOP SCH ×2 (12:09→20:37)
[2023-03-20] VITALS (22 sets, daily range): BP systolic 134–156; BP diastolic 68–90; TEMP 95.4–97.5; O2SAT 83–98
[2023-03-20] MEDS: LEVALBUTEROL HFA 45MCG/ACT 15GM INHALER INH SCH (00:45)
[2023-03-20] MEDS: SODIUM CHLORIDE HYPERTONIC 3% 15ML NEB SOL INH SCH ×3 (00:45→13:29)
[2023-03-20] MEDS: CEFEPIME HCL 2 GM in D5W MINI-BAG PLUS 50 ML IV SCH ×2 (02:10→09:41)
[2023-03-20] MEDS ORDERED: SCOPOLAMINE 1MG TRANSDERMAL PATCH TOP SCH (04:00)
[2023-03-20 06:11] LABS: BLOOD UREA NITROGEN 19 MG/DL (9-23); CALCIUM LEVEL 8.8 MG/DL (8.5-10.1); CARBON DIOXIDE LEVEL 30 MMOL/L (20-31); CHLORIDE LEVEL 108 MMOL/L (98-107); CREATININE FOR GFR 0.51 MG/DL (0.55-1.30); GLOMERULAR FILTRATION RATE > 60.0 (>58); GLUCOSE, FASTING 107 MG/DL (60-100); POTASSIUM SERUM 3.9 MMOL/L (3.5-5.1); SODIUM LEVEL 144 MMOL/L (136-145)
[2023-03-20 06:27] LABS: BASO % 0.4 % (0.0-1.0); EOS # 0.4 10^3/uL (0.0-0.5); EOS % 4.4 % (0.0-3.0); HEMATOCRIT 29.7 % (36.0-47.0); HEMOGLOBIN 9.2 g/dl (12.0-15.5); LYMPH # 2.4 10^3/uL (1.5-5.0); MEAN CORPUSCULAR HEMOGLOBIN 34.5 pg (27.0-33.0); MEAN CORPUSCULAR VOLUME 111.2 fl (80.0-96.0); MONO # 0.9 10^3/uL (0.0-0.8); MONO % 10.7 % (2.0-8.0); NEUTROPHILS # 4.6 10^3/uL (1.5-8.5); PLATELET COUNT, AUTOMATED 145 10^3/uL (150-450); RED BLOOD COUNT 2.67 10^6/uL (4.00-5.40); WHITE BLOOD COUNT 8.3 10^3/uL (4.0-10.0)
[2023-03-20] MEDS: LEVALBUTEROL 1.25MG 0.5ML CONCENTRATE NEB INH SCH ×2 (07:46→13:29)
[2023-03-20] MEDS: ENOXAPARIN 40MG/0.4ML SYRINGE (J1650 PER 10MG) SC SCH (09:41)
[2023-03-20] MEDS: PANTOPRAZOLE 40MG VIAL IV SCH (09:41)
[2023-03-20] MEDS: levETIRAcetam ORAL SOLUTION 500MG/5ML UDC GT SCH ×2 (09:41→21:52)
[2023-03-20] MEDS: FAMOTIDINE 20 MG TAB GT SCH ×2 (09:42→21:53)
[2023-03-20] MEDS: DOXYCYCLINE HYCLATE 100MG TABLET GT SCH (09:42)
[2023-03-20] MEDS: CLORAZEPATE 3.75MG TAB GT SCH ×2 (09:42→21:52)
[2023-03-20] MEDS: METOCLOPRAMIDE 5 MG TAB GT SCH ×3 (09:42→21:54)
[2023-03-20] MEDS: LACOSAMIDE 10 MG/ML GT SCH ×2 (10:05→21:55)
[2023-03-20] MEDS: NYSTATIN OINTMENT 15 GM TOP SCH ×2 (10:19→21:56)
[2023-03-20] MEDS ORDERED: LORazepam 1 MG TAB GT PRN (17:25)
[2023-03-20] MEDS ORDERED: SCOPOLAMINE 1MG TRANSDERMAL PATCH TOP PRN (17:25)
[2023-03-20] MEDS ORDERED: LevoFLOXacin IV 750 MG in IV 1 EA IV SCH (18:00)
[2023-03-21] MEDS: MORPHINE 10MG/0.5ML ORAL CONCENTRATE SOLUTION U/D SL PRN ×2 (00:52→10:37)
[2023-03-21] MEDS: LEVALBUTEROL 1.25MG 0.5ML CONCENTRATE NEB INH SCH ×4 (00:54→23:08)
[2023-03-21] MEDS: FAMOTIDINE 20 MG TAB GT SCH ×2 (09:33→20:28)
[2023-03-21] MEDS: levETIRAcetam ORAL SOLUTION 500MG/5ML UDC GT SCH ×2 (09:33→20:28)
[2023-03-21] MEDS: HYOSCYAMINE SULFATE 0.125 MG SUBL TABLET SL PRN (09:33)
[2023-03-21] MEDS: METOCLOPRAMIDE 5 MG TAB GT SCH ×3 (09:34→20:28)
[2023-03-21] MEDS: NYSTATIN OINTMENT 15 GM TOP SCH ×2 (09:34→20:30)
[2023-03-21] MEDS: CLORAZEPATE 3.75MG TAB GT SCH ×2 (09:34→20:28)
[2023-03-21] MEDS: LACOSAMIDE 10 MG/ML GT SCH ×2 (09:35→20:29)
[2023-03-21] MEDS ORDERED: NEOSPORIN OINT 0.9 GM PKT TOP ONE (10:55)
[2023-03-21] MEDS ORDERED: ATIV1TAB10 GT (16:22)
[2023-03-21] MEDS ORDERED: HYOS125TA SL (16:22)
[2023-03-21] MEDS ORDERED: MORP1SOL5 SL (16:22)
[2023-03-21] MEDS ORDERED: JEVILIQ12 GT (16:22)
[2023-03-21 18:00] VITALS: O2SAT 96
[2023-03-22] MEDS: LEVALBUTEROL 1.25MG 0.5ML CONCENTRATE NEB INH SCH (07:01)
[2023-03-22] MEDS: MORPHINE 10MG/0.5ML ORAL CONCENTRATE SOLUTION U/D SL PRN ×2 (08:33→10:36)
[2023-03-22] MEDS: levETIRAcetam ORAL SOLUTION 500MG/5ML UDC GT SCH (08:33)
[2023-03-22] MEDS: CLORAZEPATE 3.75MG TAB GT SCH (08:33)
[2023-03-22] MEDS: FAMOTIDINE 20 MG TAB GT SCH (08:34)
[2023-03-22] MEDS: HYOSCYAMINE SULFATE 0.125 MG SUBL TABLET SL PRN (08:34)
[2023-03-22] MEDS: METOCLOPRAMIDE 5 MG TAB GT SCH (08:34)
[2023-03-22] MEDS: NYSTATIN OINTMENT 15 GM TOP SCH (08:34)
[2023-03-22] MEDS: LACOSAMIDE 10 MG/ML GT SCH (08:35)
== END 2023-03-22 12:36 | disposition home or self-care (01) | DRG 871 ==
LOC: M ED 07:36 → EDBD 07:36 → M ED INP 11:42 → EEVIPCON 11:42 → ENRESERV 12:27 → M ICU 13:29 → M PCU 03-17 18:36
PROVIDERS: ADMIT Internal Medicine Pulmonary Disease; ATTEND Internal Medicine
DX: A41.9 Sepsis, unspecified organism (principal); G80.0 Spastic quadriplegic cerebral palsy; G93.41 Metabolic encephalopathy; R65.21 Severe sepsis with septic shock; J69.0 Pneumonitis due to inhalation of food and vomit; J15.6 Pneumonia due to other Gram-negative bacteria; J96.21 Acute and chronic respiratory failure with hypoxia; F72 Severe intellectual disabilities; E87.0 Hyperosmolality and hypernatremia; J45.909 Unspecified asthma, uncomplicated; E87.5 Hyperkalemia; K21.9 Gastro-esophageal reflux disease without esophagitis; B96.4 Proteus (mirabilis) (morganii) as the cause of diseases classified elsewhere; G40.909 Epilepsy, unspecified, not intractable, without status epilepticus; Z99.81 Dependence on supplemental oxygen; Z51.5 Encounter for palliative care; Z79.899 Other long term (current) drug therapy; Z88.0 Allergy status to penicillin; Z88.8 Allergy status to other drugs, medicaments and biological substances; Z91.018 Allergy to other foods; Z88.7 Allergy status to serum and vaccine; Z93.1 Gastrostomy status; Z66 Do not resuscitate